=== PATIENT | female | born 1995 | race Caucasian/White ===

== ENCOUNTER → 2023-07-02 | Outpatient (CLI) | payer OTHER, SELFPAY ==
[2023-07-02 16:43] LABS: Absolute Lymphocyte Count 3.12 X10^3/uL (0.83-4.51); Absolute Neutrophil Count 3.4 X10^3/uL (2.0-7.7); Basophil# 0.04 X10^3/uL; Basophil% 0.6 % (0-1); Eosinophil# 0.13 X10^3/uL; Eosinophils% 1.8 % (0-5); Hemoglobin 14.2 g/dL (12.0-15.0); Lymphocyte # 3.12 X10^3/ul (0.83-4.51); Lymphocyte % 43.5 % (19-41); Mean Corp Hgb Conc 34.6 g/dL (32-36); Mean Corpuscular Hgb 29.9 pg (27.0-32.0); Mean Corpuscular Volume 86.3 fL (81-99); Mean Platelet Vol. 11.6 fl (6.2-12.0); NRBC Flagged by Analyzer 0 % (0-5); Neutrophil # 3.36 X10^3/uL (2.7-7.7); Neutrophil % 46.8 % (47-70); Platelet Count 223 K/mm3 (150-450); RBC Distribution Width CV 11.2 % (11.6-14.6); RBC Distribution Width SD 35.3 fl (35.1-43.9); Red Blood Count 4.75 M/mm3 (4.2-5.4); White Blood Count 7.2 K/mm3 (4.4-11.0)
[2023-07-02 16:57] LABS: Progesterone Level 10.64 ng/mL (See Comment)
[2023-07-02 17:07] LABS: ALB/GLOB Ratio 1.3 RATIO (0.9-2.4); AST(SGOT) 20 U/L (15-37); Alanine Aminotransfer ALT/SGPT 39 U/L (13-56); Albumin, Serum 4.1 g/dL (3.2-5.0); Alkaline Phosphatase 53 U/L (45-117); Anion Gap 5 (5-15); BUN 15 mg/dL (7-18); BUN/Creat Ratio 18.2 RATIO (10-20); Calcium,Total 9.3 mg/dL (8.5-10.1); Chloride 107 mmol/L (98-107); Creatinine, Serum 0.82 mg/dL (0.55-1.02); EST Glomerular Filtration Rate 89 mL/min (>60); Est Glom Filt Rate - Afr Amer 108 mL/min (>60); Estradiol 131.9 pg/mL; Ferritin 38 ng/mL (8-252); Globulin 3.1 g/dL (2.2-4.2); Glucose 82 mg/dL (74-106); Iron 90 ug/dL (50-170); Potassium 3.6 mmol/L (3.5-5.1); Protein, Total 7.2 g/dL (6.4-8.2); Sodium Level 140 mmol/L (136-145)
== END | disposition home or self-care (01) ==
PROVIDERS: PCP Physician Assistant; Referring Provider Nurse Practitioner Family; Visit Provider Nurse Practitioner Family
DX: R53.82 Chronic fatigue, unspecified (principal); R39.82 Chronic bladder pain; R10.2 Pelvic and perineal pain; F41.9 Anxiety disorder, unspecified; F32.A Depression, unspecified; G47.00 Insomnia, unspecified; K58.1 Irritable bowel syndrome with constipation; N94.10 Unspecified dyspareunia
CPT/HCPCS: 80053; 82627; 82670; 82728; 83540; 84144; 84403; 85025; 82626

== ENCOUNTER → 2024-03-13 | Outpatient (CLI) | payer OTHER, SELFPAY ==
[2024-03-17 08:29] LABS: HPV Reflexed? NOT INDICATED
== END | disposition home or self-care (01) ==
LOC: LABSPEC 12:03
PROVIDERS: PCP Physician Assistant; Referring Provider Nurse Practitioner Women's Health; Visit Provider Nurse Practitioner Women's Health
DX: Z12.4 Encounter for screening for malignant neoplasm of cervix (principal)
CPT/HCPCS: 88175; G0145

== ENCOUNTER 2024-11-05 15:15 | Emergency (ER) | payer OTHER, SELFPAY ==
[2024-11-05 15:17] VITALS: BP 108/81; PULSE 98; RESP 18; TEMP 36.3; O2SAT 98
--- NOTE | 2024-11-05 15:26 | EDS_ITS ---
HPI History of Present Illness Chief Complaint: Abd Pain PFSH PFSH Home Medications ?Medication ?Instructions ?Recorded ?Last Taken ?Type fluticasone furoate 100 1 inh inhalation DAILY PRN 0 02/18/23 Unknown History mcg-vilanterol 25 mcg/dose inhalation powder (Breo Ellipta) mirtazapine 15 mg tablet 15 mg PO DAILY 02/18/23 Unkn own History montelukast 10 mg tablet 10 mg PO DAILY 02/18/23 Unkn own History (Singulair) pantoprazole 40 mg tablet,delayed 40 mg PO DAILY 02/18 Unknown History release Allergy/AdvReac Type Severity Reaction Status Date / Time Sulfa (Sulfonamide Allergy Intermediate Hives Verified 11/05/24 15:20 Antibiotics) Family History Mother Cancer pancreatic/cervical Diabetes Hypertension Father Hypertension Surgical History S/P laparoscopic procedure History of appendectomy Social History Smoking Status: Never smoker alcohol intake: current alcohol intake frequency: holidays/special occasions only substance use type: does not use EXAM Physical Exam Const Vital Signs: 11/05/24 15:17 11/05/24 17:28 Temperature 97.4 F L Temperature Source Oral Pulse Rate 98 91 Respiratory Rate 18 16 Blood Pressure 108/81 H 107/71 Blood Pressure Mean 90 83 Pulse Ox 98 100 Oxygen Delivery Method Room Air Room Air [facility] MDM MDM Narrative Medical decision making narrative: HISTORY OF PRESENT ILLNESS: Chief complaint: Abdominal pain 29-year-old female history of endometriosis presents with abdominal pain and increased urinary frequency. Notes pain radiates to back. Notes is similar to prior flares of endometriosis. Denies history of kidney stones. Denies vaginal bleeding or discharge. Denies constipation or diarrhea. Notes history of multiple abdominal surgeries REVIEW OF SYSTEMS: Pertinent positives: abdominal pain Pertinent negatives: Vomiting PHYSICAL EXAM: Nursing triage notes reviewed, Vital signs reviewed Constitutional: please see mdm HENT: MMM Eyes: Pupils equal round and reactive to light, Extraocular muscles intact Neck: No stridor, no JVD, full neck ROM Lungs: Clear to auscultation, No wheezing or rales. No increased work of breathing, no conversational dyspnea, no accessory muscle use, no nasal flaring. No respiratory distress noted Heart: Regular rate and rhythm, No murmurs, No rubs and No gallops, 2+ distal pulses (radial, femoral, posterior tibial) in all extremities Abdomen: Soft, there is no tenderness, rigidity, rebound or guarding, no obvious peritoneal signs, no palpable pulsatile abdominal masses, no auscultated abdominal bruit : No CVAT Extremities: No edema Neuro: No new focal neurological deficits, cranial nerves II through XII intact, 5/5 strength in all present extremities. Intact sensation to light touch in all present extremities, 2+ reflexes bilateral patella tendons. Skin: No rash or lesions noted MEDICAL DECISION MAKING: Chief Complaint: please see HPI External records reviewed: Reviewed prior imaging studies Factors affecting care: Endometriosis, anxiety, depression, asthma, gallbladder sludge Social determinants of health: none History obtained from others: family Consults: none MDM Narrative: Patient was hemodynamically stable, afebrile nontoxic-appearing. Abdominal Exam overall benign I considered the following differential diagnosis: AAA, small bowel obstruction, abdominal perforation, appendicitis, pancreatitis, hepatobiliary pathology (acute cholecystitis), mesenteric ischemia, pathology (ie nephrolithiasis, pyelonephritis). I obtained labs images to further assess any sign of a life-threatening etiology. I initially resuscitated the patient while he normal saline, 4 mg IV Zofran, oral Tylenol and 15 mg of IV Toradol. ALL IMAGES (IF OBTAINED) HAVE BEEN PERSONALLY REVIEWED AND INTERPRETED BY MYSELF. CBC with no leukocytosis to suggest systemic inflammation, no anemia thrombocytopenia CMP without evidence of acute kidney injury, significant electrolyte a bnormality, anion gap to suggest end organ hypo-perfusion, no evidence of metabolic acidosis with a normal bicarbonate, no evidence of hepatobiliary obstructive pathology. Lipase is wnl indicating no pancreatic inflammation. Urinalysis shows no evidence of urinary inflammation suggestive of UTI Urine test is CT scan of the c abdomen pelvis noncontrast shows no evidence of nephrolithiasis I suspect the patient's presentation is secondary to a flare of her endometriosis. NSAIDs encouraged. Close BACTERIOLOGIST INDUSTRIAL follow-up recommended. Strict return precautions were discussed. The patient and/or family, caregivers express understanding. The patient and/or family, caregivers agrees with the plan. Shared decision making: I will have a discussion with the patient and or visitors regarding risk/benefits of further testing or admission. They will be made aware of of the risk/benefits inherent in this decision they will be given the opportunity to voice understanding. Total critical care time today provided was at least 0 minutes. This excludes separately billable procedures. Critical care time (if documented) is secondary to the patient having high probability of clinically significant/life threatening deterioration in the patient's condition which required my urgent intervention. Impression: 1. Acute abdominal pain 2. Urinary frequency 3. History of endometriosis Dispo: Discharge home This note was generated with [employer] dictation software. It may contain incorrect words, spelling, and punctuation that were not noted in review of the chart prior to signing. Lab Data Labs: Laboratory Results - last 24 hr 11/05/24 11/05/24 15:38 16:24 WBC 3.3 L RBC 4.47 Hgb 13.8 Hct 38.3 MCV 85.7 MCH 30.9 MCHC 36.0 RDW Std Deviation 36.7 RDW Coeff of Zander 11.9 Plt Count 160 MPV 10.4 Immature Gran % (Auto) 0.600 Neut % (Auto) 55.2 Lymph % (Auto) 32.5 [place] % (Auto) 9.9 Eos % (Auto) 1.8 Baso % (Auto) 0.0 Absolute Neuts (auto) 1.8 L Absolute Lymphs (auto) 1.08 Nucleated RBC % 0 Sodium 138 Potassium 3.6 Chloride 104 Carbon Dioxide 22.1 Anion Gap 11 BUN 11 Creatinine 0.68 L Estim Creat Clear Calc 97.03 Est GFR (MDRD) Non-Af 122 BUN/Creatinine Ratio 16.4 Glucose 80 Calcium 9.0 Total Bilirubin 0.27 AST 20 ALT 15 Alkaline Phosphatase 59 Total Protein 6.7 Albumin 4.3 Globulin 2.4 Albumin/Globulin Ratio 1.8 Lipase 31 Urine Color Yellow Urine Clarity Clear Urine pH 7.0 Ur Specific [place] 1.010 Urine Protein Negative Urine Glucose (UA) Normal Urine Ketones Negative Urine Occult Blood Negative Urine Nitrite Negative Urine Bilirubin Negative Urine Urobilinogen Normal Ur Leukocyte Esterase Negative Urine RBC 0 SEEN Urine WBC 0 SEEN Ur Squamous Epith Cells 0 SEEN Urine Bacteria 0 SEEN Urine Mucus 0 SEEN Urine Test Negative Radiography Diagnostic Testing: Clinical Impression(s) from Imaging Studies Abdomen/Pelvis CT 11/05/24 16:09 IMPRESSION: NO UROLITHIASIS OR HYDRONEPHROSIS. NO ACUTE FINDINGS. Reading [facility] Triage Chief Complaint: Abd Pain ED Provider: Daniel Schneider Dx/Rx/DC Orders Prescriptions: No Action mirtazapine 15 mg tablet 15 mg PO DAILY pantoprazole 40 mg tablet,delayed release (DR/EC) 40 mg PO DAILY montelukast [Singulair] 10 mg tablet 10 mg PO DAILY fluticasone furoate-vilanterol [Breo Ellipta] 100-25 mcg/dose blister with device 1 inh inhalation DAILY PRN Primary Care Provider: Ayaka Doss Referrals: Sukh Pollock PA [Non-Staff] - Print Language: Syrian
--- NOTE | 2024-11-05 16:09 | CT_ITS ---
PROCEDURE: ABDOMEN/PELVIS WITHOUT CONT 11/05/2024 REASON FOR EXAM: LOWER ABDOMINAL PAIN, FLANK PAIN RULE OUT KIDNEY TECHNIQUE: Abdomen and pelvis CT without intravenous contrast. Noncontrast technique limits evaluation of the abdominal and pelvic viscera. Coronal and Sagittal reconstruction series were provided. One or more dose reduction techniques were used (e.g., Automated exposure control, adjustment of the mA and/or kV according to patient size, use of iterative reconstruction technique). PATIENT PREPARATION: Per protocol ORAL CONTRAST TYPE: None. AMOUNT: mL COMPARISON: None FINDINGS: Lung bases: Unremarkable Liver: Normal size. No obvious mass. Gallbladder: Unremarkable Spleen: Normal size. Pancreas: Normal size. No surrounding inflammation. Adrenals: Unremarkable Kidneys: No urolithiasis. No hydronephrosis. Bladder: Unremarkable Reproductive Organs: Normal uterine size and contour. Ovaries are unremarkable. Bowel: Unremarkable Appendix: Status post appendectomy. Lymph nodes: Unremarkable. Vasculature: The abdominal aorta and IVC contours are normal. Noncontrast technique limits evaluation. Peritoneum / Retroperitoneum: No free fluid or free air. Bones: Unremarkable CT/Abdomen/Pelvis without Cont IMPRESSION: NO UROLITHIASIS OR HYDRONEPHROSIS. NO ACUTE FINDINGS. Reading Location: [facility]
[2024-11-05 16:18] LABS: Absolute Lymphocyte Count 1.08 X10^3/uL (0.83-4.51); Absolute Neutrophil Count 1.8 X10^3/uL (2.0-7.7); Eosinophil# 0.06 X10^3/uL; Eosinophils% 1.8 % (0-5); Hematocrit 38.3 % (37-47); Hemoglobin 13.8 g/dL (12.0-15.0); Lymphocyte # 1.08 X10^3/ul (0.83-4.51); Lymphocyte % 32.5 % (19-41); Mean Corpuscular Hgb 30.9 pg (27.0-32.0); Mean Corpuscular Volume 85.7 fL (81-99); Mean Platelet Vol. 10.4 fl (6.2-12.0); Monocyte# 0.33 X10^3/uL; Monocyte% 9.9 % (0-10); NRBC Flagged by Analyzer 0 % (0-5); Neutrophil # 1.83 X10^3/uL (2.7-7.7); Neutrophil % 55.2 % (47-70); Platelet Count 160 K/mm3 (150-450); RBC Distribution Width CV 11.9 % (11.6-14.6); RBC Distribution Width SD 36.7 fl (35.1-43.9); Red Blood Count 4.47 M/mm3 (4.2-5.4); White Blood Count 3.3 K/mm3 (4.4-11.0)
[2024-11-05] MEDS: 0.9% Normal Saline (1000mL) 1,000 ML 999 ML IV (16:19)
[2024-11-05] MEDS: Acetaminophen 325 MG Tablet 650 MG PO (16:19)
[2024-11-05] MEDS: Ondansetron 4 MG/2 ML Vial IV (16:19)
[2024-11-05 16:32] VITALS: BMI 23.8
[2024-11-05 16:33] LABS: Bacteria 0 SEEN /hpf (None Seen); Mucous, Urine 0 SEEN /hpf (<or=2+); Red Blood Cells-Urine 0 SEEN /hpf (0-5); Squamous Epithelial Cells - UA 0 SEEN /hpf (5-10); White Blood Cells 0 SEEN /hpf (0-5)
[2024-11-05 16:34] LABS: ALB/GLOB Ratio 1.8 RATIO (0.9-2.4); AST(SGOT) 20 U/L (<=31); Alanine Aminotransfer ALT/SGPT 15 U/L (<=34); Albumin, Serum 4.3 g/dL (3.5-5.0); Alkaline Phosphatase 59 U/L (35-104); Anion Gap 11 (5-15); BUN 11 mg/dL (4-19); BUN/Creat Ratio 16.4 RATIO (10-20); Carbon Dioxide 22.1 mmol/L (21.0-32.0); Chloride 104 mmol/L (98-108); Creatinine, Serum 0.68 mg/dL (0.70-1.20); EST Glomerular Filtration Rate 122 (>60); Estimated Creatinine Clearance 97.03 ml/min (50-250); Globulin 2.4 g/dL (2.2-4.2); Glucose 80 mg/dL (70-99); Lipase 31 U/L (13-75); Potassium 3.6 mmol/L (3.3-5.1); Protein, Total 6.7 g/dL (5.9-8.4); Sodium Level 138 mmol/L (133-145); Total Bilirubin 0.27 mg/dL (0.00-1.30)
[2024-11-05 16:35] LABS: Color, Urine Yellow (Yellow); Glucose, Dipstick Normal (Normal); Internal QC Validated? YES +Cl - CLEAR BKGD; Ketone-Dipstick Negative (Negative); Leukocyte Esterase-Dipstick Negative /ul (Negative); Nitrite-Dipstick Negative (Negative); Occult Blood-Urine Negative /ul (Negative); Pregnancy, Urine Negative Negative; Protein-Dipstick Negative (Negative); Urine Bilirubin Dipstick Negative (Negative); Urine Clarity Clear (Clear); Urine Urobilinogen Normal (Normal)
[2024-11-05 17:28] VITALS: BP 107/71; PULSE 91; RESP 16; O2SAT 100
== END 2024-11-05 18:25 | disposition home or self-care (01) ==
PROVIDERS: Emergency Provider Emergency Medicine; Visit Provider Emergency Medicine
DX: R10.9 Unspecified abdominal pain (principal); J45.909 Unspecified asthma, uncomplicated; R35.0 Frequency of micturition
CPT/HCPCS: 74176; 80053; 81001; 81025; 83690; 85025; 96361; 96374; 96375; 99283; A4216; J2405

== ENCOUNTER → 2025-01-26 | Outpatient (CLI) | payer OTHER, SELFPAY ==
[2025-01-26 15:10] LABS: Absolute Lymphocyte Count 1.83 X10^3/uL (0.83-4.51); Absolute Neutrophil Count 5.2 X10^3/uL (2.0-7.7); Basophil# 0.03 X10^3/uL; Basophil% 0.4 % (0-1); Eosinophil# 0.25 X10^3/uL; Eosinophils% 3.2 % (0-5); Hematocrit 37.4 % (37-47); Hemoglobin 13.2 g/dL (12.0-15.0); Lymphocyte # 1.83 X10^3/ul (0.83-4.51); Lymphocyte % 23.4 % (19-41); Mean Corp Hgb Conc 35.3 g/dL (32-36); Mean Corpuscular Hgb 31.1 pg (27.0-32.0); Mean Corpuscular Volume 88.2 fL (81-99); Mean Platelet Vol. 10.6 fl (6.2-12.0); Monocyte# 0.54 X10^3/uL; Monocyte% 6.9 % (0-10); NRBC Flagged by Analyzer 0 % (0-5); Neutrophil # 5.15 X10^3/uL (2.7-7.7); Neutrophil % 65.7 % (47-70); Platelet Count 213 K/mm3 (150-450); RBC Distribution Width CV 11.8 % (11.6-14.6); Red Blood Count 4.24 M/mm3 (4.2-5.4); White Blood Count 7.8 K/mm3 (4.4-11.0)
[2025-01-26 16:06] LABS: HIV Nonreactive (Nonreactive); Hepatitis B Surface Antigen Nonreactive (Nonreactive); Hepatitis C Antibody Nonreactive (Nonreactive); Rubella IgG REAC (Nonreactive); Syphilis Antibodies Nonreactive (Nonreactive)
[2025-01-30 04:07] LABS: Chlamydia By Nucleic Acid AMP Negative (Negative); Gonococcus By Nucleic Acid AMP Negative (Negative)
== END | disposition home or self-care (01) ==
PROVIDERS: Referring Provider Registered Nurse; Visit Provider Registered Nurse
DX: O09.90 Supervision of high risk pregnancy, unspecified, unspecified trimester (principal); Z3A.00 Weeks of gestation of pregnancy not specified
CPT/HCPCS: 36415; 85025; 86703; 86762; 86780; 86803; 86850; 86900; 86901; 87086; 87340; 87491; 87591

== ENCOUNTER → 2025-03-19 | Outpatient (CLI) | payer OTHER, SELFPAY | END | disposition home or self-care (01) | LOC: LABSPEC 16:23 | PROVIDERS: Referring Provider Advanced Practice Midwife; Visit Provider Advanced Practice Midwife | DX: O26.899 Other specified pregnancy related conditions, unspecified trimester (principal); R30.0 Dysuria; Z3A.00 Weeks of gestation of pregnancy not specified | CPT/HCPCS: 87086; 87088 ==

== ENCOUNTER → 2025-05-17 | Outpatient (CLI) | payer OTHER, SELFPAY ==
--- OUTSIDE RECORDS SUMMARY | 2025-05-17 17:02 | XMS RPT_ITS | CCD ---
Author Organization [facility] ion Partnership [facility] Care Team Providers Care Wax Engraver Name Role Phone Freya Dobson Unavailable Unavailable Freya Dobson Unavailable Unavailable Amrit Pollockn M Unavailable Unavailable Unavailable Unavailable Unavailable Phill Sukh Unavailable Freya Dial Unavailable Unavailable Sharda Chávez Unavailable Unavailable Newbill PA-C Sukh M Primary Care Provider Newbill PA-C Sukh M Unavailable Newbill PA-C, Sukh M Unavailable [phone] Richelle Paola Unavailable Unavailable Unavailable Unavailable Newbill PA-C Sukh M Unavailable [phone] Newbill Sukh Primary Care Unavailable Ms. Freya Dial Attending Unava ilable Newbill, Sukh Primary Care Unavailable Newbill Sukh Attending Unavailable Newbill, Sukh Primary Care Unavailable [place]angeorge, Paola Attending Unavailable Newbill, Sukh Primary Care Unavailable Newbill, Sukh Attending Unavailable Mariah Lr Attending Unavailable MD SHARDA CHÁVEZ Referring Unava ilable Newbill, Mr. Luz Chi Primary Care Unavail able MD SHARDA CHÁVEZ Attending Unava ilable MD SHARDA CHÁVEZ Referring Unava ilable Newbill, Mr. Sukh Mireles Primary Care Unavail able MD SHARDA CHÁVEZ Attending Unava ilable CHÁVEZ, MD SHARDA ROLLE Referring Unava ilable Newbill, Mr. Sukh Mireles Primary Care Unavail able Newbill, Mr. Sukh Mireles Attending Unavail able Newbill, Mr. Sukh Mireles Referring Unavail able Newbill, Mr. Sukh Mireles Primary Care Unavail able Newbill, Mr. Sukh Mireles Attending Unavail able Newbill, Mr. Sukh Mireles Referring Unavail able Newbill, Mr. Sukh Mireles Primary Care Unavail able Newbill, Mr. Sukh Mireles Attending Unavail able Newbill, Mr. Sukh Mireles Referring Unavail able Newbill, Mr. Sukh Mireles Primary Care Unavail able Newbill, Mr. Sukh Mireles Attending Unavail able Newbill, Mr. Sukh Mireles Referring Unavail able Newbill, Mr. Sukh Mireles Primary Care Unavail able Jayden Taylor Attending Unavailable Newbill, Mr. Sukh Mireles Primary Care Unavail able Newbill Sukh MILLER Unavailable Selam 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, Ayaka B Primary Care Provider Selam 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, Ayaka B Unavailable Selam 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, Ayaka B Primary Care Provider Selam 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, Ayaka B Unavailable Dr. Daniel Schneider DO Emergency Provider [phone] Selam CONSTRUCTION CARPENTER-C, Ayaka Primary Care Provider Selam ARCHITECTURAL DESIGN PROFESSOR, [facility] Primary Care Provider Selam 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, Ayaka B Unavailable RYAN GUERRA Attending Unavailable [facility], AYAKA B Primary Care Unavailable GENERIC PROVIDER, NO ASSIGNED PCP Primary Care Unavailable JAYDEN TAYLOR Admitting Unavailable JAYDEN TAYLOR Attending Unavailable [facility], AYAKA B Primary Care Unavailable JAYDEN TAYLOR Admitting Unavailable JAYDEN TAYLOR Attending Unavailable [facility], AYAKA B Primary Care Unavailable [facility], AYAKA B Primary Care Unavailable [facility], AYAKA B Primary Care Unavailable EVENS PALACIOS Attending Unavailable EVENS PALACIOS Referring Unavailable SELAM, AYAKA B Referring Unavailable SELAM, AYAKA B Primary Care Unavailable SELAM, AYAKA B Primary Care Unavailable EVENS PALACIOS Attending Unavailable SELAM, AYAKA B Referring Unavailable SELAM, AYAKA B Primary Care Unavailable Selam 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, Ayaka B Primary Care Provider SELAM, AYAKA B Attending Unavailable SELAM, AYAKA B Primary Care Unavailable SELAM, AYAKA B Attending Unavailable SELAM, AYAKA B Primary Care Unavailable SELAM, AYAKA B Attending Unavailable SELAM, AYAKA B Primary Care Unavailable SELAM, AYAKA B Attending Unavailable SELAM, AYAKA B Primary Care Unavailable SELAM, AYAKA B Attending Unavailable SELAM, AYAKA B Primary Care Unavailable CHAD VALDEZ Attending Unavailable SELAM, AYAKA B Primary Care Unavailable STARR TORREZ Referring Unavailable JOHANN HAINES Attending Unavailabl e SELAM, AYAKA Primary Care Unavailable SELAM, AYAKA Primary Care Unavailable JOHANN HAINES Referring Unavailabl e JOHANN HAINES Attending Unavailabl e STARR TORREZ Attending Unavailable SELAM, AYAKA Primary Care Unavailable Dr. Daniel Schneider DO Attending Provider Selam CONSTRUCTION CARPENTER-C, Ayaka Referring Provider [phone] Dr. Kirsten Aragon DO Attending Provider Apple Browne CNM Attending Provider [phone] Apple Browne CNM Referring Provider [phone] Dr. Marcie Santana MD Attending Provider [phone] Selam CONSTRUCTION CARPENTER-C, Ayaka Primary Care Provider Kelsey Harrell CNM Attending Provider [phone] Kelsey Harrell CNM Referring Provider [phone] JAYDEN TAYLOR Attending Unavailable SELAM, AYAKA B Primary Care Unavailable SELAM, AYAKA B Primary Care Unavailable Selam CONSTRUCTION CARPENTER-C, Ayaka Primary Care Physician Dr. Kirsten Aragon DO Attending Physician Apple Browne CNM Attending Physician [phone] Nicole WEBER, Dr. Jack Attending Physician Kelsey Harrell CNM Attending Physician [phone] Marquita CONSTRUCTION CARPENTER-CNelli Attending Physician [phone] MARCIE SANTANA Referring Unavailabl FIORDALIZA Hernandez Attending Unavailable SELAM, AYAKA B Primary Care Unavailable SELAM, AYAKA B Primary Care Unavailable KIRSTEN CLEMENTS Attending Unavailable MARCIE SANTANA Referring Unavailabl Marcie Horan Attending Unavailable Selam, Ayaka Primary Care Unavailable Selam, Ayaka Referring Unavailable Selam, Ayaka Referring Unavailable Selam, Ayaka Primary Care Unavailable Kirsten Aragon Attending UnavailKelsey Faria Attending Unavailable Selam, Ayaka Referring Unavailable Selam, Ayaka Primary Care Unavailable Nelli Juárez NP Attending Unavailable Selam, Ayaka Referring Unavailable Selam, Ayaka Primary Care Unavailable Selam, Ayaka Primary Care Unavailable Selam, Ayaka Referring Unavailable Kirsten Aragon Attending Unavailabl e Selam, Ayaka Primary Care Unavailable Selam, Ayaka Referring Unavailable Apple Browne Attending Unavailable Kelsey Harrell Attending Unavailable Kelsey Harrell Referring Unavailable Selam, Ayaka Primary Care Unavailable Selam, Ayaka Primary Care Unavailable Apple Browne Attending Unavailable Browne, Apple Referring Unavailable Selam, Ayaka Primary Care Unavailable Daniel Schneider Attending Unavailable Selam, Ayaka Primary Care Unavailable Apple Browne Attending Unavailable Browne, Apple Referring Unavailable Allergies Allergy Classification Reported Allergen(s) Allergy Type Date of Onset Reaction(s) Facility (20 sources) Sulfonamides (Antibiotic); Translations: [Sulfa Drugs] Allergy to drug (finding) [facility] Work Phone: (11 sources) Serotonin Reuptake Inhibitors (Ssris); Translations: [Serotonin Reuptake Inhibitors] Allergy to drug (finding) [facility] Work Phone: (20 sources) Serotonin; Translations: [SEROTONIN] Drug Allergy 3 Unknown, [facility] (20 sources) Sulfonamides (Antibiotic); Translations: [SULFA (SULFONAMIDE ANTIBIOTICS)] Drug Allergy 3 [facility] Work Phone: (8 sources) Sulfonamides (Antibiotic) Allergy to substance 5 [facility] (1 source) Serotonin Drug Allergy 3 [facility] (1 source) Sulfonamides (Antibiotic) Drug allergy (disorder) 5 [facility] Rep[facility] Medications Current Medications Medication Drug Class(es) Dates Sig (Normalized) Sig (Original) acetaminophen 325 mg oral tablet (4 sources) Start: 04-28-2024 End: 05-08-2024 acetaminophen (Tylenol) 325 mg tablet Indications: Post-op pain Take 3 tablets (975 mg) by mouth every 6 hours if needed for mild pain (1 - 3) for up to 20 doses. 20 tablet 04/28/2024 05/08/2024 Active Start: 04-28-2024 End: 04-28-2024 take 975 mg by mouth once as needed for pain 975 mg, oral, Once, On Wed04/28/24 at 0630, For 1 dose, Preprocedure, If ordered PRN for pain, nurse is permitted to administer this medication for higher pain scores based on patient preference? Yes Start: 10-14-2023 End: 10-14-2023 acetaminophen (Tylenol) tabl et 975 mg [id number] 200 actuat albuterol 0.09 mg/actuat metered dose inhaler (20 sources) beta2-Adrenergic Agonist Start: 09-11-2024 End: 09-11-2025 take 2 puff(s) by inhalation every six hours for wheezing albuterol 90 mcg/actuation inhaler Indications: Acute upper respiratory infection Inhale 2 puffs every 6 hours if needed for wheezing. 18 g 09/11/2024 09/11/2025 Active Start: 04-28-2024 2.5 mg, nebuli zation, Once as needed, wheezing, Starting on Wed04/28/24 at 0940, For 1 dose, Recovery (only) albuterol 0.63 m g/3 mL nebulizer solution Inhale 3 mL. Active take 3 mL by inhalat ion three times daily albuterol 0.63 mg/3 mL (0.021%) inhalation solution ; 3 milliliter(s) inhaled 3 times a day Quantity: 0 Refills: 0 Ordered: 31-May-2019 Masha Mcbride Generic Substitution Allowed calcium chloride 0.0014 meq/ml / potassium chloride 0.004 meq/ml / sodium chloride 0.103 meq/ml / sodium lactate 0.028 meq/ml injectable solution (3 sources) Start: 04-28-2024 take 100 mL intravenously every hour 100 mL/hr, intravenous, Continuous, Starting on Wed04/28/24 at 1000, Recovery (only) Start: 10-14-2023 lactated Ringe r's infusion clomiPHENE citrate 50 mg oral tablet (1 source) Estrogen Agonist/Antagonist Start: 11-20-2024 take 1 tablet by mouth once daily clomiPHENE 50 MG tablet Take 1 tablet by mouth daily. Took this last month been off since . 11/20/2024 Active cyclobenzaprine hydrochloride 5 mg oral tablet (3 sources) Muscle Relaxant Start: 12-22-2023 End: 02-20-2024 take 1 tablet by mouth three times daily as needed for pain cyclobenzaprine (Flexeril) 5 mg tablet Indications: Endometriosis determined by laparoscopy Take 1 tablet (5 mg) by mouth 3 times a day as needed for muscle spasms (Pelvic pain). 30 tablet 1 12/22/2023 02/20/2024 Active Start: 03-04-2023 End: 04-28-2023 take 1 tablet by mouth three times daily as needed for muscle spasms cyclobenzaprine (Flexeril) 10 mg tablet Indications: Injury of sacrum, initial encounter Take 1 tablet (10 mg) by mouth 3 times a day as needed for muscle spasms. 30 tablet 1 03/04/2023 04/28/2023 Discontinued (Therapy completed) dextromethorphan hydrobromide 15 mg / guaiFENesin 400 mg / pseudoephedrine hydrochloride 60 mg oral tablet (2 sources) alpha-Adrenergic Agonist, Uncompetitive Z-rucueo-D-aspartate Receptor Antagonist, Sigma-1 Agonist Start: 11-03-2022 End: 01-26-2023 take 1 tablet by mouth four times daily as needed [id number] 60-15-400 mg tablet Indications: Pharyngitis, unspecified etiology Take 1 tablet by mouth 4 times a day as needed (cold/allergy symptoms). 30 tablet 1 11/03/2022 01/26/2023 Discontinued (Therapy completed) diphenhydrAMINE (1 source) Histamine-1 Receptor Antagonist Start: 04-28-2024 25 mg, intravenous, Once as needed, itching, allergic reaction, Starting on Wed04/28/24 at 0940, For 1 dose, Recovery (only) docosahexaenoic acid 200 mg oral capsule (7 sources) Start: 01-12-2025 Docosahexaenoic Acid (Prenat al Dha) 200 mg capsule Active mg PO January 12, 2025 12:00am Complies with drug therapy docusate sodium 100 mg oral capsule (18 sources) Start: 01-12-2025 take 1 capsule by mouth once daily Docusate Sodium 100 mg capsule Active 100 mg PO daily January 12, 2025 12:00am Complies with drug therapy End: 09-20-2024 take 1 capsule by mouth once daily docusate sodium 250 mg capsule Take 1 capsule (250 mg) by mouth once daily. 09/20/2024 Discontinued (Therapy completed) End: 12-22-2023 take 1 capsule by mouth twice daily docusate sodium (Colace) 100 mg capsule Take 1 capsule (100 mg) by mouth 2 times a day. 12/22/2023 Discontinued (Therapy completed) DULoxetine 30 mg delayed release oral capsule (5 sources) Serotonin and Norepinephrine Reuptake Inhibitor Start: 05-03-2023 End: 10-14-2023 DULoxetine (Cymbalta) [address] capsule Indications: Anxiety and depression Take one cap daily for one week then increase to 2 caps daily 6 capsule 11 05/03/2023 10/14/2023 Discontinued (Stop Taking at Discharge) Start: 09-23-2022 End: 09-28-2022 take 1 capsule by mouth once daily DULoxetine HCl - 20 MG Oral Capsule Delayed Release Particles TAKE 1 CAPSULE Daily Quantity: 30 Refills: 11 Ordered: 23-Sep-2022 Sukh Pollock PA-C Start : 23-Sep-2022 End : 28-Sep-2022 Complete Comment on above: Source=Surescripts, Medication=DULOXETINE HCL 20MG CAP, OriginatingSource[id number], OriginatingProvider=SUKH POLLOCK, Duration=30, Refills=11, Date Last Modified/Filled=23-Sep-2022 [id number] 0.3 ml EPINEPHrine 1 mg/ml auto-injector (3 sources) alpha-Adrenergic Agonist, beta-Adrenergic Agonist, Catecholamine Start: 11-24-19 EPINEPHrine 0.3 MG/0.3ML Solution Auto-injector injection Inject contents of 1 autoinjector (0.3 mg) into thigh for allergic reactions (hives, lip/tongue/throat swelling, breathing trouble, lightheadedness, passing out or other symptoms of an allergic reaction) and seek medical attention immediately. If symptoms do not resolve after 5 min and still awaiting medical care, inject contents of a second autoinjector. 2 Each 11/23/2024 Active Start: 11-23-2024 End: 11-23-2024 inject 0.3 mg by intramuscular injection once 0.3 mg, Intramuscular, ONCE, 1 dose, On Amanda 11/23/24 at 0300, For intraMUSCULAR use, anterolateral thigh is recommended site of administration 30 actuat fluticasone furoate 0.2 mg/actuat / vilanterol 0.025 mg/actuat dry powder inhaler (20 sources) Corticosteroid, beta2-Adrenergic Agonist Start: 03-23-2023 End: 04-27-2024 take 1 puff(s) by mouth once daily Breo Ellipta 200-25 mcg/dose inhaler Indications: Mild intermittent asthma without complication ([facility]) Inhale 1 puff by mouth once daily 60 each 03/23/2023 04/27/2024 Discontinued (Therapy completed) Start: 02-18-2023 End: 01-12-2025 Fluticasone Furoate-Vilanter ol (Breo Ellipta) 100-25 mcg/dose blister with device Discontinued 1 NMA INHALATION DAILY as needed February 18, 2023 12:00am January 12, 2025 8:21am Start: 01-28-2022 take 1 puff(s) by in halation once daily fluticasone furoate-vilanteroL (Breo Ellipta) 200-25 mcg/dose inhaler Inhale 1 puff once daily. 0 01/28/2022 Active Comment on above: Diagnosis: Unavailab le 1 ml hydrALAZINE hydrochloride 20 mg/ml injection (1 source) Arteriolar Vasodilator Start: 04-28-2024 10 mg, intravenous, Administer over 2 Minutes, Every 30 min PRN, systolic blood pressure greater than 180 mmHg and heart rate less than 60 BPM, Starting on Wed04/28/24 at 0940, For 2 doses, Recovery (only) 1 ml HYDROmorphone hydrochloride 1 mg/ml cartridge (3 sources) Opioid Agonist Start: 04-28-2024 1 mg, intravenous, Every 5 min PRN, pain severe (7-10), first line, Starting on Wed04/28/24 at 0940, Recovery (only), Max total of 4 mg regardless of dose. Start: 10-14-2023 HYDROmorphone (Dilaudid) injection 0.5 mg ibuprofen 600 mg oral tablet (2 sources) Nonsteroidal Anti-inflammatory Drug Start: 04-28-2024 End: 05-08-2024 take 1 tablet by mouth every six hours for pain ibuprofen 600 mg tablet Indications: Post-op pain Take 1 tablet (600 mg) by mouth every 6 hours if needed for moderate pain (4 - 6) for up to 20 doses. 20 tablet 04/28/2024 05/08/2024 Active labetalol hydrochloride 5 mg/ml injectable solution (1 source) beta-Adrenergic Charles Start: 04-28-2024 10 mg, intravenous, Administer over 1 Minutes, Once as needed, systolic blood pressure greater than 180 mmHg, dystolic blood pressure greater than 100 mmHg and heart rate greater than 60 BPM, Starting on Wed04/28/24 at 0940, For 1 dose, Recovery (only) 200 actuat levalbuterol 0.045 mg/actuat metered dose inhaler (20 sources) beta2-Adrenergic Agonist Start: 11-03-2023 End: 04-28-2024 take 1 puff(s) by mouth every four hours as needed levalbuterol (Xopenex) 45 mcg/actuation inhaler Indications: Moderate persistent asthma, unspecified whether complicated ([facility]) INHALE 1 PUFF BY MOUTH EVERY 4 HOURS NEEDED 15 g 11/03/2023 04/28/2024 Discontinued (Stop Taking at Discharge) Start: 10-30-2019 End: 10-11-2023 take 1 puff(s) by inhalation every four hours levalbuterol (Xopenex) 45 mcg/actuation inhaler Inhale 1 puff every 4 hours if needed. 0 10/30/2019 10/11/2023 Discontinued (Med List Cleanup) Start: 10-30-2019 take 1 puff(s) by mo uth every four hours as needed Levalbuterol Tartrate 45 MCG/ACT Inhalation Aerosol TAKE 1 PUFF BY MOUTH EVERY 4 HOURS NEEDED Quantity: 1 Refills: 3 Ordered: 21-Sep-2022 Sukh Pollock PA-C Start : 30-Oct-2019 Active Start: 09-01-2019 End: 08-27-2022 take 1 [IU] by inhalation every four to six hours as needed Levalbuterol HCl - 1.25 MG/3ML Inhalation Nebulization Solution USE 1 UNIT DOSE IN NEBULIZER EVERY 4 TO 6 HOURS NEEDED. Quantity: 60 Refills: 2 Ordered: 01-Sep-2019 Freya Dobson DO Start : 01-Sep-2019 End : 27-Aug-2022 Complete Start: 05-16-2019 take 1 puff(s) by in halation every four hours as needed Xopenex HFA 45 MCG/ACT Inhalation Aerosol INHALE 1 PUFF EVERY 4 HOURS NEEDED. Quantity: 1 Refills: 6 Freya Dobson DO Start : 16-May-2019 Active 15 GM Inhaler loratadine 10 mg oral tablet (20 sources) Start: 01-12-2025 take 1 tablet by mouth once daily Loratadine (Claritin) 10 mg tablet Active 10 mg PO daily January 12, 2025 12:00am Complies with drug therapy End: 04-28-2023 loratadine (Claritin) 10 mg tablet Claritin 10 MG Oral Tablet Refills: 0 Active 0 04/28/2023 Discontinued (Therapy completed) Claritin 10 MG O ral Tablet Quantity: 0 Refills: 0 Ordered: 11-Feb-2022 DO Active Meperidine (1 source) Opioid Agonist Start: 04-28-2024 12.5 mg, intra venous, Every 10 min PRN, shivering, Starting on Wed04/28/24 at 0940, Recovery (only) 5 ml midazolam 1 mg/ml injection (2 sources) Benzodiazepine Start: 04-28-2024 1 mg, intraven ous, Once as needed, anxiety, Starting on Wed04/28/24 at 0940, For 1 dose, Recovery (only) Start: 10-14-2023 End: 10-14-2023 midazolam (Versed) injection 2 mg miscellaneous medical supply misc (2 sources) Start: 10-02-2024 miscellaneous medical supply misc Indications: Pelvic pain Insert 1 suppository into the vagina 2 times a day as needed (pelvic pain). 30 each 1 10/02/2024 Active 1 ml morphine sulfate 2 mg/ml prefilled syringe (1 source) Opioid Agonist Start: 04-28-2024 2 mg, intravenous, Every 5 min PRN, pain moderate (4-6), first line, Starting on Wed04/28/24 at 0940, Recovery (only), Max total of 20 mg regardless of dose. nitrofurantoin, macrocrystals 25 mg / nitrofurantoin, monohydrate 75 mg oral capsule (6 sources) Nitrofuran Antibacterial Start: 10-30-2022 End: 11-06-2022 take 1 capsule by mouth in the morning nitrofurantoin, macrocrystal-monoh ydrate, (Macrobid) 100 mg capsule Indications: Urinary tract infection without hematuria, site unspecified Take 1 capsule (100 mg) by mouth in the morning and 1 capsule (100 mg) before bedtime. Do all this for 7 days. 14 capsule 0 10/30/2022 11/06/2022 Active Start: 05-22-2022 End: 08-27-2022 take 1 capsule by mouth once daily Nitrofurantoin Monohyd Macro 100 MG Oral Capsule TAKE 1 CAPSULE EVERY 12 HOURS DAILY. Quantity: 10 Refills: 0 Ordered: 22-May-2022 Freya Dobson DO Start : 22-May-2022 End : 27-Aug-2022 Complete Start: 12-26-2021 End: 12-31-2021 take 1 capsule by mouth once daily Nitrofurantoin Monohyd Macro 100 MG Oral Capsule TAKE 1 CAPSULE EVERY 12 HOURS DAILY. Quantity: 10 Refills: 0 Ordered: 26-Dec-2021 Freya Dobson DO Start : 26-Dec-2021 End : 31-Dec-2021 Complete ondansetron 4 mg disintegrating oral tablet (20 sources) Serotonin-3 Receptor Antagonist Start: 11-05-2024 take 1 tablet by mouth every eight hours as needed for nausea Ondansetron 4 mg tablet,disintegrating Active 4 mg PO EVERY 8 HOURS NEEDED as needed for Nausea 10 November 05, 2024 12:00am Complies with drug therapy Start: 09-11-2024 End: 09-20-2024 take 1 tablet by mouth every eight hours for nausea ondansetron ODT (Zofran-ODT) 4 mg disintegrating tablet Indications: Acute upper respiratory infection Dissolve 1 tablet (4 mg) in the mouth every 8 hours if needed for nausea or vomiting for up to 7 days. 20 tablet 09/11/2024 09/20/2024 Discontinued (Therapy completed) Start: 04-28-2024 End: 05-05-2024 take 1 tablet by mouth every six hours for nausea ondansetron (Zofran) 4 mg tablet Indications: Post-op pain Take 1 tablet (4 mg) by mouth every 6 hours if needed for nausea for up to 20 doses. 20 tablet 04/28/2024 05/05/2024 Active Start: 04-28-2024 4 mg, intraven ous, Once as needed, nausea/vomiting, first line, Starting on Wed04/28/24 at 0940, For 1 dose, Recovery (only), When administering via IV Push, administer over 3-5 minutes. Start: 10-14-2023 End: 12-22-2023 take 1 tablet by mouth every eight hours for nausea ondansetron ODT (Zofran-ODT) 8 mg disintegrating tablet Indications: Chronic pelvic pain in female , PONV (postoperative nausea and vomiting) Take 1 tablet (8 mg) by mouth every 8 hours if needed for nausea or vomiting. 20 tablet 10/14/2023 12/22/2023 Discontinued (Med List Cleanup) Start: 10-14-2023 End: 10-14-2023 ondansetron (Zofran) injecti on 4 mg Start: 09-28-2022 End: 12-22-2023 take 1 tablet by mouth every six hours ondansetron (Zofran) 4 mg tablet Indications: Anxiety and depression , Panic attack , Nausea in adult Take 1 tablet (4 mg) by mouth every 6 hours. 30 tablet 2 04/28/2023 12/22/2023 Discontinued (Med List Cleanup) Start: 09-01-2021 End: 01-28-2022 take 1 tablet by mouth every six hours Ondansetron HCl - 4 MG Oral Tablet TAKE 1 TABLET Every 6 hours PRN nausea Quantity: 12 Refills: 1 Ordered: 30-Dec-2021 Sukh Pollock PA-C Start : 01-Sep-2021 End : 28-Jan-2022 Complete 24 hr oxybutynin chloride 5 mg extended release oral tablet (1 source) Cholinergic Muscarinic Antagonist Start: 01-05-2025 oxyBUTYnin XL (Ditropan-XL) 5 mg 24 hr tablet Indications: Urinary symptom or sign Take 1 tablet in am 30 tablet 11 01/05/2025 Active oxyCODONE hydrochloride 5 mg oral tablet (3 sources) Opioid Agonist Start: 04-28-2024 End: 05-05-2024 take 1 tablet by mouth every six hours for pain oxyCODONE (Roxicodone) 5 mg immediate release tablet Indications: Post-op pain Take 1 tablet (5 mg) by mouth every 6 hours if needed for severe pain (7 - 10) for up to 12 doses. 12 tablet 04/28/2024 05/05/2024 Active Start: 10-14-2023 take 1 tablet by shawn th every four hours as needed oxyCODONE (Roxicodone) immediate release tablet 5 mg oxygen (O2) therapy (1 source) Start: 10-14-2023 oxygen (O2) therapy pantoprazole 40 mg delayed release oral tablet (20 sources) Proton Pump Inhibitor Start: 11-09-2019 End: 04-27-2025 take 1 tablet by mouth once daily Pantoprazole 40 mg tablet,delayed release (DR/EC) Active 40 mg PO DAILY February 18, 2023 12:00am Complies with drug therapy phenazopyridine hydrochloride 200 mg oral tablet (5 sources) Start: 11-19-2022 End: 11-20-2022 take 1 tablet by mouth three times daily after mealtime Pyridium 200 mg oral tablet ; 1 tab(s) orally 3 times a day (after meals) Quantity: 6 Refills: 0 Ordered: 19-Nov-2022 Paola Pickard Start: 19-Nov-2022 End: 20-Nov-2022 Generic Substitution Allowed Comments: May discolor urine or feces.Medication should be taken with plenty of water.Take with food or milk. Start: 10-13-2022 End: 01-26-2023 phenazopyridine (Pyridium) 1 00 mg tablet Indications: Dysuria Take 1 tablet (100 mg) by mouth in the morning and 1 tablet (100 mg) at noon and 1 tablet (100 mg) in the evening. Take with meals. 9 tablet 0 10/13/2022 01/26/2023 Discontinued (Therapy completed) Start: 12-26-2021 End: 12-31-2021 take 1 tablet by mouth once daily as needed Pyridium 200 MG Oral Tablet TAKE 1 TABLET DAILY NEEDED. Quantity: 15 Refills: 0 Ordered: 26-Dec-2021 Freya Dobson DO Start : 26-Dec-2021 End : 31-Dec-2021 Complete Comment on above: May discolor urine o r feces.Medication should be taken with plenty of water.Take with food or milk. promethazine (Phenergan) 6.25 mg in sodium chloride 0.9% 50 mL IV (1 source) Start: 10-14-19 promethazine (Phenergan) 6.25 mg in sodium chloride 0.9% 50 mL IV promethazine 6.25 mg in sodium chloride 0.9% 50 mL IV (1 source) Start: 04-28-20 24 6.25 mg, intravenous, Administer over 15 Minutes, Once as needed, Nausea/vomiting, second line, Starting on Wed04/28/24 at 0940, For 1 dose, Recovery (only) QUEtiapine 25 mg oral tablet (3 sources) Atypical Antipsychotic Start: 11-04-19 End: 05-02-20 23 take 1 tablet by mouth once daily at bedtime QUEtiapine (SEROquel) 25 mg tablet Indications: Anxiety and depression , Panic attacks Take 1 tablet (25 mg) by mouth once daily at bedtime. 30 tablet 5 11/03/2022 01/26/2023 Discontinued (Therapy completed) Comment on above: Source=Surescripts, Medication=QUEtiapine Fumarate 25MG TAB, OriginatingSource[id number], OriginatingProvider=SUKH POLLOCK, Duration=30, Refills=5, Date Last Modified/Filled=03-Nov-2022 sertraline 50 mg oral tablet (16 sources) Serotonin Reuptake Inhibitor Start: 01-13-20 take 1 tablet by mouth once daily Sertraline (Zoloft) 50 mg tablet Active 50 mg PO daily January 12, 2025 12:00am Complies with drug therapy Start: 06-16-2024 End: 12-13-2024 take 1 tablet by mouth once daily sertraline (Zoloft) 50 mg tablet Indications: Anxiety and depression Take 1 tablet by mouth once daily 30 tablet 12/11/2024 Active Start: 05-21-2022 take 1 tablet by shawn th once daily Sertraline HCl - 50 MG Oral Tablet take 1 tablet by mouth once daily Quantity: 30 Refills: 11 Ordered: 21-May-2022 Sukh Pollock PA-C Start : 21-May-2022 Active traMADol hydrochloride 50 mg oral tablet (1 source) Opioid Agonist Start: 01-26-2023 End: 02-23-2023 take 1 tablet by mouth every six hours for pain traMADol (Ultram) 50 mg tablet Indications: Acute bilateral low back pain, unspecified whether sciatica present Take 1 tablet (50 mg) by mouth every 6 hours if needed for severe pain (7 - 10) for up to 28 days. 15 tablet 0 01/26/2023 02/23/2023 Active ubiquinol 100 mg oral capsule (7 sources) Start: 01-12-2025 take 1 capsule by mouth twice daily Coq10 (Ubiquinol) (Qh-Absorb) 100 mg capsule Active 100 mg PO TWICE A DAY January 12, 2025 12:00am Complies with drug therapy 24 hr venlafaxine 37.5 mg extended release oral capsule (11 sources) Serotonin and Norepinephrine Reuptake Inhibitor Start: 04-28-2023 venlafaxine XR (Effexor-XR) 37.5 mg 24 hr capsule Indications: Anxiety and depression , Panic attack Take one cap daily for one week then increase to 2 caps daily 60 capsule 5 04/28/2023 Active Start: 09-28-2022 End: 11-03-2022 take 1 capsule by mouth once daily at mealtime Venlafaxine HCl ER 75 MG Oral Capsule Extended Release 24 Hour TAKE 1 CAPSULE ONCE DAILY WITH FOOD. Quantity: 30 Refills: 11 Ordered: 28-Sep-2022 Sukh Pollock PA-C Start : 28-Sep-2022 Active Start: 09-21-2022 End: 09-23-2022 take 1 tablet by mouth once daily, then take 1 tablet by mouth twice daily Venlafaxine HCl - 37.5 MG Oral Tablet take one tab po daily x1 weektake one tab po bid thereafter Quantity: 60 Refills: 1 Ordered: 21-Sep-2022 Sukh Pollock PA-C Start : 21-Sep-2022 End : 23-Sep-2022 Complete Completed/Discontinued Medications Medication Drug Class(es) Dates Sig (Normalized) Sig (Original) acetaminophen 300 mg / codeine phosphate 30 mg oral tablet (3 sources) Opioid Agonist Start: 10-14-2023 End: 12-22-2023 take 1 tablet by mouth every six hours for pain acetaminophen-cod eine (Tylenol w/ Codeine #3) 300-30 mg tablet Indications: Chronic pelvic pain in female Take 1 tablet by mouth every 6 hours if needed for moderate pain (4 - 6) or severe pain (7 - 10) for up to 10 doses. 10 tablet 10/14/2023 12/22/2023 Discontinued (Med List Cleanup) ALPRAZolam 1 mg oral tablet (6 sources) Benzodiazepine Start: 04-22-2022 End: 09-21-2022 ALPRAZolam 1 MG Oral Tablet 1/2 or 1 tab bid prn panick attacks Quantity: 10 Refills: 0 Ordered: 22-Apr-2022 Sukh Pollock PA-C Start : 22-Apr-2022 End : 21-Sep-2022 Complete F41.0 amoxicillin 875 mg / clavulanate 125 mg oral tablet (1 source) Penicillin-class Antibacterial Start: 09-01-2019 take 1 tablet by mouth once daily Amoxicillin-Pot Clavulanate 875-125 MG Oral Tablet TAKE 1 TABLET EVERY 12 HOURS DAILY. Quantity: 20 Refills: 0 Freya Dobson DO Start : 01-Sep-2019 Active aprepitant 40 mg oral capsule (1 source) Substance P/Neurokinin-1 Receptor Antagonist Start: 10-14-2023 End: 10-14-2023 aprepitant (Emend) capsule 40 mg azithromycin 250 mg oral tablet (7 sources) Macrolide Antimicrobial Start: 09-09-2024 End: 09-20-2024 azithromycin (Zithromax Z-Mahesh) 250 mg tablet Indications: Acute non-recurrent maxillary sinusitis Take 2 tablets (500 mg) on Day 1, followed by 1 tablet (250 mg) once daily on Days 2 through 5. 6 tablet 09/09/2024 09/20/2024 Discontinued (Therapy completed) Start: 11-03-2022 End: 01-26-2023 azithromycin (Zithromax) 250 mg tablet Indications: Pharyngitis, unspecified etiology Take 1 tablet (250 mg) by mouth once daily. 2 tabs po day 1 1 tab po every day days 2-5 6 tablet 0 11/03/2022 01/26/2023 Discontinued (Therapy completed) Start: 06-24-2021 End: 09-01-2021 Azithromycin 250 MG Oral Tab let TAKE DIRECTED PER PACKAGE INSTRUCTIONS. Quantity: 1 Refills: 0 Ordered: 24-Jun-2021 Sukh Pollock PA-C Start : 24-Jun-2021 End : 01-Sep-2021 Complete brompheniramine maleate 0.4 mg/ml / dextromethorphan hydrobromide 2 mg/ml / pseudoephedrine hydrochloride 6 mg/ml oral solution (5 sources) alpha-Adrenergic Agonist, Uncompetitive E-mtubca-D-aspartate Receptor Antagonist, Sigma-1 Agonist Start: 09-09-2024 End: 09-20-2024 take 5 mL by mouth four times daily as needed for cough urjfkcbxessysoz-cxygtffjb-ZM (Bromfed DM) 2-30-10 mg/5 mL syrup Indications: Acute non-recurrent maxillary sinusitis Take 5 mL by mouth 4 times a day as needed for allergies, congestion or cough. 240 mL 09/09/2024 09/20/2024 Discontinued (Therapy completed) Start: 06-24-2021 End: 09-01-2021 take 5-10 mL by mouth every four to six hours as needed for cough Ehpqadnkk-Uyjgebwg-ZK 30-2-10 MG/5ML Ora l Syrup take 5-10 mL po q4-6 hrs prn cough, cold, or allergy symptoms Quantity: 200 Refills: 0 Ordered: 24-Jun-2021 Phill GOMEZ-Sukh Garcia Start : 24-Jun-2021 End : 01-Sep-2021 Complete 60 actuat budesonide 0.16 mg/actuat / formoterol fumarate 0.0045 mg/actuat metered dose inhaler (20 sources) Corticosteroid, beta2-Adrenergic Agonist Start: 05-10-2019 End: 02-11-2022 take 2 puff(s) by mouth twice daily Symbicort 160-4.5 MCG/ACT Inhalation Aerosol INHALE 2 PUFFS TWICE DAILY. RINSE MOUTH AFTER USE. Quantity: 1 Refills: 3 Ordered: 30-Dec-2021 Sukh Pollock PA-C Start : 10-May-2019 End : 11-Feb-2022 Complete Start: 05-10-2019 take 2 puff(s) by mo uth twice daily Symbicort 160-4.5 MCG/ACT Inhalation Aerosol INHALE 2 PUFFS TWICE DAILY. RINSE MOUTH AFTER USE. Quantity: 1 Refills: 3 Freya Dobson DO Start : 10-May-2019 Active 10.2 GM Inhaler take 2 puff(s) by in halation every twelve hours budesonide-formoterol 160-4.5 mcg/puff Aerosol inhaler Inhale 2 puffs every 12 hours. Active take 2 puff(s) by mo uth twice daily budesonide-formoteroL (Symbicort) 160-4.5 mcg/actuation inhaler Inhale 2 puffs 2 times a day. Rinse mouth with water after use to reduce aftertaste and incidence of candidiasis. Do not swallow. Active take 2 puff(s) by mo uth twice daily budesonide-formoteroL (Symbicort) 160-4.5 mcg/actuation inhaler Inhale 2 puffs 2 times a day. Rinse mouth with water after use to reduce aftertaste and incidence of candidiasis. Do not swallow. 0 Active Symbicort ; 1 in haler(s) inhaled once a day, As Needed Quantity: 0 Refills: 0 Ordered: 23-Sep-2019 Radha Clark Generic Substitution Allowed budesonide/formoterol fumara te (SYMBICORT INHL) (5 sources) End: 10-11-2023 budesonide/formoterol fumara te (SYMBICORT INHL) Inhale. 0 10/11/2023 Discontinued (Med List Cleanup) budesonide/formo terol fumarate (SYMBICORT INHL) Inhale. 0 Active 12 hr buPROPion hydrochloride 150 mg extended release oral tablet (3 sources) Aminoketone Start: 07-02-2022 End: 09-21-2022 take 1 tablet by mouth twice daily buPROPion HCl ER (SR) 150 MG Oral Tablet Extended Release 12 Hour Take 1 tablet twice daily Quantity: 60 Refills: 11 Ordered: 02-Jul-2022 Sukh Pollock PA-C Start : 02-Jul-2022 End : 21-Sep-2022 Complete Start: 05-25-2022 take 1 tablet by shawn once daily buPROPion HCl ER (XL) 150 MG Oral Tablet Extended Release 24 Hour Take 1 tablet daily Quantity: 30 Refills: 5 Ordered: 25-May-2022 Sukh Pollock PA-C Start : 25-May-2022 Active celecoxib 100 mg oral capsule (2 sources) Nonsteroidal Anti-inflammatory Drug Start: 04-28-2024 End: 04-28-2024 take 1 capsule by mouth once 400 mg, oral, Once, On Wed04/28/24 at 0630, For 1 dose, Preprocedure, Capsules may be opened and sprinkled on a spoonful of cold or room temperature applesauce. Start: 10-14-2023 End: 10-14-2023 celecoxib (CeleBREX) capsule 400 mg 1 ml dexamethasone phosphate 10 mg/ml injection (1 source) Corticosteroid Start: 10-14-2023 End: 10-14-2023 dexAMETHasone (PF) (Decadron) injection 10 mg Start: 10-14-2023 End: 10-14-2023 dexAMETHasone (PF) (Decadron ) injection 10 mg docusate sodium 50 mg / sennosides, group home 8.6 mg oral tablet (7 sources) Start: 04-28-2024 End: 09-20-2024 take 1 tablet by mouth twice daily sennosides-docusate sodium (Suzanne-Colace) 8.6-50 mg tablet Indications: Post-op pain Take 1 tablet by mouth 2 times a day. 30 tablet 1 04/28/2024 09/20/2024 Discontinued (Therapy completed) drospirenone / Ethinyl Estradiol (2 sources) Progestin, Estrogen Start: 10-29-2023 End: 12-22-2023 take 1 tablet by mouth once daily drospirenone-ethinyl estradioL (Loulou, 28,) 3-0.03 mg tablet Indications: Endometriosis determined by laparoscopy Take 1 tablet by mouth once daily. 28 tablet 5 10/29/2023 12/22/2023 Discontinued (Med List Cleanup) Start: 10-29-2023 End: 10-28-2024 take 1 tablet by mouth once daily drospirenone-ethinyl estradioL (Loulou, 28,) 3-0.03 mg tablet Indications: Endometriosis determined by laparoscopy Take 1 tablet by mouth once daily. 28 tablet 5 10/29/2023 10/28/2024 Active estradiol 0.1 mg/ml vaginal cream (5 sources) Estrogen Start: 12-22-2023 End: 12-21-2024 estradiol (Estrace) 0.01 % ( 0.1 mg/gram) vaginal cream Indications: Dyspareunia in female Apply to vagina nightly for 1 week then every Wednesday/Wednesday/Wednesday. 42.5 g 5 12/22/2023 06/14/2024 Discontinued (Therapy completed) Nortrel 1/35 (28) 1-35 MG-MCG Oral Tablet (1 source) Estrogen Start: 05-16-2019 Nortrel 1/35 ( 28) 1-35 MG-MCG Oral Tablet TAKE DIRECTED. Quantity: 1 Refills: 11 Freya Dobson DO Start : 16-May-2019 Active 28 Tablet Pack 2 ml famotidine 10 mg/ml injection (2 sources) Histamine-2 Receptor Antagonist Start: 10-14-2023 End: 10-14-2023 famotidine PF (Pepcid) injection 20 mg Start: 07-02-2022 End: 08-27-2022 take 1 tablet by mouth once daily Famotidine 20 MG Oral Tablet TAKE 1 TABLET EVERY 12 HOURS DAILY. Quantity: 14 Refills: 1 Ordered: 02-Jul-2022 Sukh Pollock PA-C Start : 02-Jul-2022 End : 27-Aug-2022 Complete fluconazole 150 mg oral tablet (5 sources) Azole Antifungal Start: 07-02-2022 End: 08-27-2022 take 1 tablet by mouth once Fluconazole 150 MG Oral Tablet TAKE 1 TABLET 1 TIME ONLY. Quantity: 1 Refills: 1 Ordered: 02-Jul-2022 Sukh Pollock PA-C Start : 02-Jul-2022 End : 27-Aug-2022 Complete Start: 06-01-2022 take 1 tablet by mouth once Fl uconazole 150 MG Oral Tablet TAKE 1 TABLET 1 TIME ONLY. Quantity: 1 Refills: 1 Ordered: 01-Jun-2022 Sukh Pollock PA-C Start : 01-Jun-2022 Active Start: 06-25-2021 End: 09-01-2021 take 1 tablet by mouth once Fluconazole 150 MG Oral Ta blet TAKE 1 TABLET 1 TIME ONLY. Quantity: 1 Refills: 1 Ordered: 25-Jun-2021 Sukh Pollock PA-C Start : 25-Jun-2021 End : 01-Sep-2021 Complete Start: 09-01-2019 take 1 tablet by shawn th every twenty-four hours Fluconazole 150 MG Oral Tablet TAKE I TAB. IF SYMPTOMS STILL OCCUR AFTER 24 HOURS, TAKE 2ND TAB. Quantity: 2 Refills: 0 Freya Dobson DO Start : 01-Sep-2019 Active FLUoxetine 10 mg oral tablet (2 sources) Serotonin Reuptake Inhibitor Start: 04-22-2022 End: 05-21-2022 take 1 tablet by mouth once daily FLUoxetine HCl - 10 MG Oral Tablet TAKE 1 TABLET DAILY. Quantity: 30 Refills: 11 Ordered: 22-Apr-2022 Sukh Pollock PA-C Start : 22-Apr-2022 End : 21-May-2022 Complete gabapentin 300 mg oral capsule (2 sources) Anti-epileptic Agent Start: 04-28-2024 End: 04-28-2024 take 1 capsule by mouth once 600 mg, oral, Once, On Wed04/28/24 at 0630, For 1 dose, Preprocedure, Capsules may be opened and sprinkled on food (eg, applesauce, orange juice, pudding). Capsules may be opened and sprinkled on food (eg, applesauce, orange juice, pudding Start: 10-14-2023 End: 10-14-2023 gabapentin (Neurontin) capsu le 300 mg 10 ml lidocaine hydrochloride 10 mg/ml injection (2 sources) Antiarrhythmic, Amide Local Anesthetic Start: 11-23-2024 End: 11-23-2024 take 0.3 mL intravenously once as needed 0.3 mL, Infiltration, ONCE NEEDED, 1 dose, Starting on Wed11/23/24 at 0215, Until Wed11/23/24 at 0902, Other, peripheral IV insertion Start: 04-28-2024 LORazepam 1 mg oral tablet (4 sources) Benzodiazepine Start: 05-01-2023 End: 12-22-2023 LORazepam (Ativan) 1 mg tablet Indications: Panic attacks Take 1 tablet (1 mg) by mouth every 8 hours if needed for anxiety for up to 7 days. 1/2 or 1 tab q8 prn panic attack 21 tablet 05/01/2023 12/22/2023 Discontinued (Med List Cleanup) Start: 04-01-2023 End: 04-28-2023 LORazepam (Ativan) 1 mg tabl et Indications: Panic attacks 1/2 or 1 tab q8 prn panic attack 28 tablet 0 04/01/2023 04/28/2023 Discontinued (Therapy completed) methylPREDNISolone (9 sources) Corticosteroid Start: 05-02-2024 End: 09-20-2024 methylPREDNISolone (Medrol Dospak) 4 mg tablets Indications: Allergic contact der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 Take as directed on package. 21 tablet 05/02/2024 09/20/2024 Discontinued (Therapy completed) Start: 05-02-2024 methylPREDNISo lone (Medrol Dospak) 4 mg tablets Indications: Allergic contact der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 Take as directed on package. 21 tablet 05/02/2024 Active Start: 05-02-2024 End: 05-02-2024 methylPREDNISolone sod succi heidy (SOLU-Medrol) injection 125 mg Start: 05-02-2024 End: 05-02-2024 inject 125 mg by intramuscular injection once 125 mg, intramuscular, Once, On Wed05/02/24 at 1205, For 1 dose Start: 05-02-2024 End: 05-02-2024 methylPREDNISolone sod succi heidy (SOLU-Medrol) injection 125 mg mirtazapine 30 mg oral tablet (12 sources) Start: 03-04-2023 End: 08-31-2023 take 1 tablet by mouth once daily at bedtime mirtazapine (Remeron) 30 mg tablet Indications: Anxiety and depression , Injury of sacrum, initial encounter Take 1 tablet (30 mg) by mouth once daily at bedtime. 30 tablet 5 03/04/2023 04/28/2023 Discontinued (Therapy completed) Start: 01-26-2023 End: 01-12-2025 take 1 tablet by mouth once daily Mirtazapine 15 mg tablet Discontinued 15 mg PO DAILY February 18, 2023 12:00am January 12, 2025 8:21am montelukast 10 mg oral tablet (20 sources) Leukotriene Receptor Antagonist Start: 05-10-2019 End: 01-12-2025 take 1 tablet by mouth once daily Montelukast (Singulair) 10 mg tablet Discontinued 10 mg PO DAILY February 18, 2023 12:00am January 12, 2025 8:21am Singulair 4 mg o ral granule ; 1 each orally once a day Quantity: 0 Refills: 0 Ordered: 31-May-2019 Masha Mcbride Generic Substitution Allowed Nortrel 1/35 (28) 1-35 MG-MCG Oral Tablet (2 sources) Start: 05-16-2019 End: 06-24-2021 Nortrel 1/35 (28) 1-35 MG-MCG Oral Tablet TAKE DIRECTED. Quantity: 1 Refills: 11 Ordered: 16-May-2019 Freya Dobson DO Start : 16-May-2019 End : 24-Jun-2021 Complete plecanatide 3 mg oral tablet (2 sources) Start: 06-25-2020 End: 06-24-2021 take 1 tablet by mouth once daily in the morning Trulance 3 MG Oral Tablet one tablet once daily in the morning Quantity: 90 Refills: 3 Ordered: 25-Jun-2020 Arabella Guzman Start : 25-Jun-2020 End : 24-Jun-2021 Complete predniSONE 10 mg oral tablet (9 sources) Start: 09-11-2024 End: 09-20-2024 take 6 tablets by mouth once daily, then take 5 tablets by mouth once daily, then take 4 tablets by mouth once daily, then take 3 tablets by mouth once daily, then take 2 tablets by mouth once daily, then take 1 tablet by mouth once daily predniSONE (Deltasone) 10 mg tablet Indications: Acute upper respiratory infection Take 6 tablets (60 mg) by mouth once daily for 1 day, THEN 5 tablets (50 mg) once daily for 1 day, THEN 4 tablets (40 mg) once daily for 1 day, THEN 3 tablets (30 mg) once daily for 1 day, THEN 2 tablets (20 mg) once daily for 1 day, THEN 1 tablet (10 mg) once daily for 1 day. 21 tablet 09/11/2024 09/20/2024 Discontinued (Therapy completed) Start: 03-04-2023 End: 04-28-2023 take 3 tablets by mouth once daily, then take 2 tablets by mouth once daily, then take 1 tablet by mouth once daily predniSONE (Deltasone) 10 mg tablet Indications: Injury of sacrum, initial encounter 3 tabs po every day x 2 days, then 2 tabs po every day x 2 days, then 1 tab po every day every day x2 days 12 tablet 0 03/04/2023 04/28/2023 Discontinued (Therapy completed) Start: 11-03-2022 End: 11-08-2022 take 1 tablet by mouth in the morning predniSONE (Deltasone) 10 mg tablet Indications: Pharyngitis, unspecified etiology Take 1 tablet (10 mg) by mouth in the morning and 1 tablet (10 mg) before bedtime. Do all this for 5 days. 10 tablet 0 11/03/2022 11/08/2022 Active Start: 07-02-2022 End: 08-27-2022 take 1 tablet by mouth twice daily predniSONE 20 MG Oral Tablet TAKE 1 TABLET TWICE DAILY. Quantity: 14 Refills: 1 Ordered: 02-Jul-2022 Sukh Pollock PA-C Start : 02-Jul-2022 End : 27-Aug-2022 Complete Start: 06-24-2021 End: 09-01-2021 predniSONE 10 MG Oral Tablet TAKE 4 TABLETS DAILY FOR 3 DAYS,3 TABLETS DAILY FOR 3 DAYS, 2 TABLETS DAILY FOR 3 DAYS AND 1 TABLET DAILY FOR 3 DAYS, THEN STOP. Quantity: 30 Refills: 0 Ordered: 24-Jun-2021 Sukh Pollock PA-C Start : 24-Jun-2021 End : 01-Sep-2021 Complete Start: 09-01-2019 take 3 tablets by [facility] once daily, then take 2 tablets by mouth once daily, then take 1 tablet by mouth once daily predniSONE 20 MG Oral Tablet TAKE 3 TABLETS DAILY FOR 3 DAYS, THEN 2 TABLETS DAILY FOR 3 DAYS, THEN 1 TABLET DAILY FOR 3 DAYS. Quantity: 18 Refills: 0 Freya Dobson DO Start : 01-Sep-2019 Active pregabalin 50 mg oral capsule (1 source) Start: 04-01-2023 End: 04-28-2023 take 1 capsule by mouth three times daily pregabalin (Lyrica) 50 mg capsule Indications: Anxiety and depression , Panic attacks Take 1 capsule (50 mg) by mouth 3 times a day. 90 capsule 5 04/01/2023 04/28/2023 Discontinued (Therapy completed) promethazine hydrochloride 25 mg oral tablet (16 sources) Phenothiazine Start: 09-01-2021 End: 01-28-2022 take 1 tablet by mouth every four to six hours as needed for nausea Promethazine HCl - 25 MG Oral Tablet TAKE 1 TABLET EVERY 4 TO 6 HOURS NEEDED FOR NAUSEA. Quantity: 18 Refills: 0 Ordered: 01-Sep-2021 Sukh Pollock PA-C Start : 01-Sep-2021 End : 28-Jan-2022 Complete 72 hr scopolamine 0.0139 mg/hr transdermal system (1 source) Anticholinergic Start: 10-14-2023 End: 10-14-2023 scopolamine (Transderm-Scop) patch 1 patch traZODone hydrochloride 50 mg oral tablet (6 sources) Serotonin Reuptake Inhibitor Start: 04-22-2022 End: 09-21-2022 traZODone HCl - 50 MG Oral Tablet take 1/2 or 1 tablet qhs for insomnia Quantity: 30 Refills: 5 Ordered: 22-Apr-2022 Sukh Pollock PA-C Start : 22-Apr-2022 End : 21-Sep-2022 Complete triamcinolone acetonide 5 mg/ml topical cream (2 sources) Corticosteroid Start: 05-02-2024 End: 06-14-2024 triamcinolone (Kenalog) 0.5 % cream Indications: Allergic contact der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 Apply topically 3 times a day. 30 g 1 05/02/2024 06/14/2024 Discontinued (Therapy completed) Unspecified Medication (2 sources) Start: 01-01-2023 Unspecified Medication VALIUM VAGINAL SUP. 5 MG TID PRN PAIN Quantity: 30 Refills: 0 Ordered: 01-Jan-2023 Jayden Taylor MD Start : 01-Jan-2023 Active Problems Active Problems Problem Classification Problem Date Documented Da te Episodic/Chronic Allergic reactions (20 sources) Idiopathic urticaria; Translations: [Idiopathic urticaria] Onset: 3 11-02-2022 Episodic Anxiety disorders (20 sources) Mixed anxiety and depressive disorder; Translations: [Anxiety state, unspecified] Onset: 3 11-03-2022 Chronic Comment on above: Zoloft Asthma (20 sources) Asthma; Translations: [Exacerbation of asthma] Onset: 3 Resolved: 2 11-02-2022 Chronic Comment on above: Stable, no inhalers Biliary tract disease (8 sources) Biliary sludge; Translations: [Other specified diseases of gallbladder] 02-19-2023 Episodic Endometriosis (20 sources) Endometriosis (clinical); Translations: [Endometriosis, unspecified] Onset: 4 10-29-2023 Chronic Comment on above: Dr Jayden [facility]/surgery 04/2024. Esophageal disorders (20 sources) Gastroesophageal reflux disease; Translations: [Esophageal reflux] Onset: 4 04-27-2024 Chronic Comment on above: Pantopazole Genitourinary symptoms and ill-defined conditions (20 sources) History of urinary tract infection; Translations: [Personal history, urinary (tract) infection] Onset: 3 Resolved: 2 11-19-2022 Episodic Menstrual disorders (14 sources) Amenorrhea; Translations: [Amenorrhea, unspecified] Onset: 5 01-12-2025 Chronic Miscellaneous mental health disorders (20 sources) Psychophysiologic insomnia; Translations: [Persistent disorder of initiating or maintaining sleep] Onset: 3 11-02-2022 Chronic Mood disorders (20 sources) Depressive disorder; Translations: [Depression] 02-18-2023 Chronic Comment on above: Zoloft Mood disorders (1 source) Mood disorders; Translations: [Depression, unspecified] Onset: 5 Osteoarthritis (8 sources) Arthritis; Translations: [Unspecified osteoarthritis, unspecified site] 02-18-2023 Chronic Comment on above: lower back Other aftercare (1 source) 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; Translations: [Other retirement (current) drug therapy] Onset: 3 Episodic Other aftercare (1 source) Postoperative visit; Translations: [Encounter for other specified surgical aftercare] 10-29-2023 Episodic Other complications of (20 sources) High risk ; Translations: [Supervision of high risk , unspecified, unspecified trimester] 01-12-2025 Episodic Comment on above: G1, ERIN 08/31/25, Hu sband: Vinny PRR ERIN 6, : Vinny Other complications of (1 source) Other specified related conditions, unspecified trimester; Translations: [Other specified related conditions, unspecified trimester] Onset: 5 Episodic Other complications of (1 source) Supervision of high risk , unspecified, unspecified trimester; Translations: [Supervision of high risk , unspecified, unspecified trimester] Onset: 5 Episodic Other connective tissue disease (1 source) Pelvic floor dysfunction; Translations: [Other specified disorders of muscle] 01-05-2025 Episodic Other connective tissue disease (10 sources) Female pelvic floor dysfunction; Translations: [Other specified disorders of muscle] 02-22-2025 Episodic Comment on above: PFPT with freya toño , cleared for vaginal exams as long as no bleeding. Other connective tissue disease (1 source) Other specified disorders of muscle; Translations: [Other specified disorders of muscle] Onset: 5 Episodic Other diseases of bladder and urethra (1 source) Overactive bladder; Translations: [Overactive bladder] 01-05-2025 Chronic Other female genital disorders (20 sources) Female deep pain on intercourse; Translations: [Dyspareunia] Onset: 3 11-02-2022 Chronic Other female genital disorders (1 source) Deep dyspareunia; Translations: [Deep dyspareunia] Onset: 3 Chronic Other female genital disorders (3 sources) Pain in female genitalia on intercourse; Translations: [Unspecified dyspareunia] 09-24-2023 Chronic Other gastrointestinal disorders (20 sources) Irritable bowel syndrome characterized by constipation; Translations: [Irritable bowel syndrome] Onset: 3 11-02-2022 Chronic Other gastrointestinal disorders (13 sources) Irritable bowel syndrome; Translations: [Irritable bowel syndrome without diarrhea] 01-12-2025 Chronic Comment on above: Daily stool softener Other infections; including parasitic (20 sources) H/O: infectious disease; Translations: [Personal history of other infectious and parasitic diseases] Episodic Other injuries and conditions due to external causes (1 source) Traumatic injury of sacrum; Translations: [Unspecified injury of lower back, initial encounter] 03-04-2023 Episodic Other injuries and conditions due to external causes (1 source) Allergic reaction; Translations: [Allergy, unspecified, subsequent encounter] 11-24-2024 Episodic Other injuries and conditions due to external causes (1 source) Angioedema; Translations: [Angioneurotic edema, initial encounter] 01-04-2025 Episodic Other injuries and conditions due to external causes (2 sources) Angioneurotic edema, initial encounter; Translations: [Angioneurotic edema, initial encounter] Onset: 5 Episodic Other nervous system disorders (1 source) Postoperative pain ; Translations: [Other acute postprocedural pain] 04-28-2024 Episodic Other and delivery including normal (20 sources) ; Translations: [Encounter for supervision of normal , unspecified, unspecified trimester] Onset: 5 09-20-2024 Episodic Comment on above: Discussed genetic/ca rrier testing - undecided Discussed genetic/ca rrier testing -declines Other screening for suspected conditions (not mental disorders or infectious disease) (20 sources) Computed tomography result abnormal; Translations: [Nonspecific (abnormal) findings on radiological and other examination of gastrointestinal tract] Resolved: 2 03-13-2024 Episodic Other upper respiratory disease (20 sources) Seasonal allergy; Translations: [Allergic rhinitis, cause unspecified] Onset: 3 11-02-2022 Chronic Other upper respiratory disease (2 sources) Pain in throat 10-31-2022 Episodic Comment on above: SORE THROAT Residual codes; unclassified (8 sources) History of laparoscopy; Translations: [Other specified postprocedural states] 10-10-2024 Episodic Comment on above: 09/2023 [facility] endometrio sis Residual codes; unclassified (1 source) Swelling; Translations: [Edema, unspecified] 01-04-2025 Episodic Residual codes; unclassified (2 sources) Edema, unspecified; Translations: [Edema, unspecified] Onset: 5 Episodic Residual codes; unclassified (12 sources) Infertile 01-12-2025 Episodic Comment on above: Clomid x1 Residual codes; unclassified (1 source) 16 weeks gestation of ; Translations: [16 weeks gestation of ] Onset: Episodic Spondylosis; intervertebral disc disorders; other back problems (1 source) Acute low back pain; Translations: [Acute bilateral low back pain, unspecified whether sciatica present] 01-26-2023 Episodic Unclassified (2 sources) Patient encounter procedure 01-28-2022 Comment on above: YEARLY Unclassified (1 source) Viral URI with cough 10-31-2022 Unclassified (1 source) Abdominal pain, acute, left lower quadrant 11-19-2022 Unclassified (3 sources) Low back pain, unspecified; Translations: [Low back pain, unspecified] Onset: 3 Unclassified (1 source) Autogenerated Problem Onset: 5 11-20-2024 Unclassified (4 sources) Dyspareunia in female Unclassified (9 sources) N94.10 - Unspecified dyspareunia Urinary tract infections (1 source) Interstitial cystitis (chronic) without hematuria; Translations: [Chronic interstitial cystitis] 01-05-2025 Chronic Past or Other Problems Problem Classification Problem Date Documented Da te Episodic/Chronic Abdominal pain (20 sources) Pain in female pelvis; Translations: [Unspecified symptom associated with female genital organs] Onset: 3 11-02-2022 Episodic Comment on above: ABD PAIN Chronic obstructive pulmonary disease and bronchiectasis (8 sources) Bronchitis; Translations: [Bronchitis, not specified as acute or chronic] Onset: 5 09-20-2024 Episodic Fever of unknown origin (1 source) Fever, unspecified; Translations: [Fever, unspecified] Onset: 3 Episodic Immunizations and screening for infectious disease (20 sources) Patient encounter status; Translations: [Screening examination for venereal disease] Resolved: 2 Episodic Mycoses (20 sources) Candidiasis of vagina; Translations: [Candidiasis of vulva and vagina] Onset: 3 11-02-2022 Episodic Nausea and vomiting (20 sources) Nausea and vomiting; Translations: [Nausea with vomiting] Onset: 3 11-02-2022 Episodic Other aftercare (2 sources) Encounter for other specified surgical aftercare; Translations: [Encounter for other specified surgical aftercare] Onset: 4 Episodic Other ear and sense organ disorders (1 source) Otalgia, bilateral; Translations: [Otalgia, bilateral] Onset: 3 Episodic Other gastrointestinal disorders (20 sources) Acute constipation; Translations: [Constipation, unspecified] Resolved: 2 Episodic Other gastrointestinal disorders (20 sources) Esophageal dysphagia; Translations: [Other dysphagia] Resolved: 2 Episodic Other gastrointestinal disorders (20 sources) Constipation; Translations: [Other constipation] Resolved: 1 Episodic Other lower respiratory disease (20 sources) H/O: respiratory disease; Translations: [Personal history of other diseases of respiratory system] Resolved: 1 Episodic Other upper respiratory infections (14 sources) Acute sinusitis; Translations: [Acute pharyngitis] Onset: 3 10-31-2022 Episodic Residual codes; unclassified (20 sources) Uses contraception; Translations: [Other specified conditions influencing health status] Resolved: 2 Episodic Residual codes; unclassified (20 sources) History of clinical finding in subject; Translations: [Personal history of other specified diseases] Resolved: 1 Episodic Residual codes; unclassified (20 sources) Influenza-like symptoms; Translations: [Other general symptoms] Resolved: 2 Episodic Residual codes; unclassified (20 sources) H/O: gastrointestinal disease; Translations: [Personal history of other diseases of digestive system] Resolved: 2 Episodic Unclassified (1 source) Uses contraception; Translations: [Uses control] Unclassified (20 sources) Finding of menstrual bleeding; Translations: [Menstruation] Comment on above: age 12; Unclassified (18 sources) Onset: 3 Resolved: 3 01-26-2023 Unclassified (1 source) Low back pain, unspecified; Translations: [Low back pain, unspecified] Onset: 3 Urinary tract infections (20 sources) Urinary tract infectious disease; Translations: [Urinary tract infection, site not specified] Onset: 3 11-02-2022 Episodic NEGATED: Highlighted row has been ruled out!Unclassified (1 source) No known active problems 01-04-2025 Results Test Name Value Interpretation Reference Range Facility Yeast Culture Operator Office Visit Reporton 04-18-2025 Yeast Culture Operator Office Visit Report [facility] [address], [address] [place] [address] OFFICE VISIT Date of Service: 04/18/25 MR#: [id number] Acct: [id number] Name: KM STRANGE Rep #: [id number] : 1995 Provider: CARLA aguiar Age/Sex: 29/F Location: [facility] [place] Status: Signed Intake Vital Signs 02/22/25 09:25 03/19/25 15:12 04/18/25 08:21 Height 5 ft 5 ft 5 ft Weight: 146 lb 9 oz BMI 28.6 BP 110/70 Intake Visit Reasons: 21 WK OB Chief Complaint: 22 Week OB [employer] Required: No Is patient in pain?: No Allergies Sulfa (Sulfonamide Antibiotics) Allergy (Intermediate, Verified 04/18/25 08:24) Hives Medications ???Medication ???Instructions ???Recorded ???Confirmed ???Type pantoprazole 40 mg tablet,delayed 40 mg PO DAILY 02/18/23 04/18/25 History release ondansetron 4 mg disintegrating 4 mg PO Q8H PRN PRN Nausea #10 tab s 11/05/24 04/18/25 Rx tablet coQ10 (ubiquinol) 100 mg capsule 100 mg PO BID 01/12/25 04/18/25 Hi story (QH-absorb) docosahexaenoic acid 200 mg mg PO 01/12/25 04/18/25 History capsule ( DHA) docusate sodium 100 mg capsule 100 mg PO QDAY 01/12/25 04/18/25 H istory loratadine 10 mg tablet (Claritin) 10 mg PO QDAY 01/12/25 04/18/25 History sertraline 50 mg tablet (Zoloft) 50 mg PO QDAY 01/12/25 04/18/25 Hi story Last Menstrual Period: 11/24/24 Zika: Zika virus screening: Negative : No PFSH PFSH Medical History Arthritis Asthma Surgical History S/P laparoscopic procedure History of appendectomy Family History Mother Diabetes Hypertension Thyroid cancer Cervical cancer Father Hypertension Social History adopted: No household members: spouse housing: house current occupational status: employed 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 occupational exposures/hazards: No pets and animals: Yes pets and animals: dog(s) history of recent travel: No sexually active: Yes Smoking Status: Never smoker second hand exposure: No alcohol intake: current alcohol intake frequency: holidays/special occasions only details: Not while substance use type: does not use well-balanced diet: daily or most days caffeine: Yes Type: coffee eating out: rarely or never during the past year weight has: remained stable what type of physical activity do you participate in: walking ken/restorationist: Yazidi seatbelt use: always do you feel safe at home: Yes 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 OB Visit ERIN Calculator Estimated Delivery Date Method Current WG Current Estimate 08/31/25 LMP (Certain) 20w 5d Expected Delivery Route/Plan Labor Preferences- CB/BF classes: [] labor support person: [] labor intervention preferences: [] pain management options preferred: [] cut cord/dad catch: [] : [] PP control planned: [] discussed possible routes of delivery and associated risks: [] special requests: [] Specific Issue/Plans Covid status: [] Flu vaccine: [] Tdap vaccine: [] Rhogam: [] LARC form signed: [] Problem list reviewed and updated with the most current plan of care details and appropriate orders placed. Relevant counseling for the gestational age provided. Continue routine care and follow up unless otherwise noted in visit notes/problem list details Initial Weight: Not Recorded Date -???-???-???-???-???-??? -???-???-???-???-???-??? - EGA Weight BP Urine Prot -???-???-???-???-???-??? -???-???-???-???-???-??? - Glucose FHR FuHt Pres Dilation -???-???-???-???-???-??? -???-???-???-???-???-??? - Effaced St Visit Note 01/26/25 -???-???-???-???-???-??? -???-???-???-???-???-??? - 9w 0d 128 lb 8 oz 106/74 -???-???-???-???-???-??? -???-???-???-???-???-??? - 175 -???-???-???-???-???-??? -???-???-???-???-???-??? - LC- CRL 1.75 cm con with lmp. declines nipt. 02/22/25 -???-???-???-???-???-??? -???-???-???-???-???-??? - 12w 6d 133 lb 6 oz 103/72 Negative -???-???-???-???-???-??? -???-???-???-???-???-??? - Negative 150 -???-???-???-???-???-??? -???-???-???-???-???-??? - SM- no vb cr amping discussed PFPT to help with pelvic floor dysfunction 03/19/25 -???-???-???-???-???-??? -???-???-???-???- (more content not included)... Normal [facility] Urine Cultureon 03-22-2025 URC Below infection leve l. GPC Poss Enterococcus sp [place] Count 1000-10,000 Normal [facility] Comment on above: Performed By: #### M [id number] #### [facility] [address] [place], [address] Laboratory - Chemistry and C hemistry - challengeOrdered By: Kelsey Harrell on 03-19-2025 Bilirubin Ql (U) Negative [facility] Glucose Ql (U) Negative [facility] Ketones Ql (U) Negative [facility] pH (U) 6.5 [pH] [facility] Specific gravity (U) [Rel density] 1.010 [facility] Urobilinogen (U) [Mass/Vol] Negative [facility] Laboratory - Hematology and Cell countsOrdered By: Kelsey Harrell on 03-19-2025 Hemoglobin Ql (U) Negative [facility] Laboratory - Specimen inform ationOrdered By: Kelsey Harrell on 03-19-2025 Clarity (U) Clear [facility] Color (U) Yellow [facility] Laboratory - UrinalysisOrder ed By: Kelsey Harrell on 03-19-2025 Nitrite Ql (U) Negative [facility] Protein Ql (U) Negative [facility] No Panel InformationOrdered By: Kelsey Harrell on 03-19-2025 Urine Leukocytes Negatve [facility] Urine Non-Hemolyzed Blood [facility] Yeast Culture Operator Office Visit Reporton 03-19-2025 Yeast Culture Operator Office Visit Report [facility] [address], [address] [place] [id number] OFFICE VISIT Date of Service: 03/19/25 MR#: [id number] Acct: [id number] Name: KM STRANGE Rep #: [id number] : 1995 Provider: SHI Luther ams Age/Sex: 29/F Location: [facility] [place] Status: Signed Intake Vital Signs 01/26/25 13:35 02/22/25 09:25 03/19/25 15:12 Height 5 ft 5 ft 5 ft Weight: 142 lb 6 oz BMI 27.8 BP 103/70 Intake Visit Reasons: 17wk ob Chief Complaint: 17wk OB [employer] Required: No Is patient in pain?: No Allergies Sulfa (Sulfonamide Antibiotics) Allergy (Intermediate, Verified 03/19/25 15:11) Hives Medications ???Medication ???Instructions ???Recorded ???Confirmed ???Type pantoprazole 40 mg tablet,delayed 40 mg PO DAILY 02/18/23 03/19/25 History release ondansetron 4 mg disintegrating 4 mg PO Q8H PRN PRN Nausea #10 tab s 11/05/24 03/19/25 Rx tablet coQ10 (ubiquinol) 100 mg capsule 100 mg PO BID 01/12/25 03/19/25 Hi story (QH-absorb) docosahexaenoic acid 200 mg mg PO 01/12/25 03/19/25 History capsule ( DHA) docusate sodium 100 mg capsule 100 mg PO QDAY 01/12/25 03/19/25 H istory loratadine 10 mg tablet (Claritin) 10 mg PO QDAY 01/12/25 03/19/25 History sertraline 50 mg tablet (Zoloft) 50 mg PO QDAY 01/12/25 03/19/25 Hi story Last Menstrual Period: 11/24/24 : No PFSH PFSH Medical History Arthritis Asthma Surgical History S/P laparoscopic procedure History of appendectomy Family History Mother Diabetes Hypertension Thyroid cancer Cervical cancer Father Hypertension Social History adopted: No household members: spouse housing: house current occupational status: employed 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 occupational exposures/hazards: No pets and animals: Yes pets and animals: dog(s) history of recent travel: No sexually active: Yes Smoking Status: Never smoker second hand exposure: No alcohol intake: current alcohol intake frequency: holidays/special occasions only details: Not while substance use type: does not use well-balanced diet: daily or most days caffeine: Yes Type: coffee eating out: rarely or never during the past year weight has: remained stable what type of physical activity do you participate in: walking ken/restorationist: Yazidi seatbelt use: always do you feel safe at home: Yes 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 OB Visit ERIN Calculator Estimated Delivery Date Method Current WG Current Estimate 08/31/25 LMP (Certain) 16w 3d Expected Delivery Route/Plan Labor Preferences- CB/BF classes: [] labor support person: [] labor intervention preferences: [] pain management options preferred: [] cut cord/dad catch: [] : [] PP control planned: [] discussed possible routes of delivery and associated risks: [] special requests: [] Specific Issue/Plans Covid status: [] Flu vaccine: [] Tdap vaccine: [] Rhogam: [] LARC form signed: [] Problem list reviewed and updated with the most current plan of care details and appropriate orders placed. Relevant counseling for the gestational age provided. Continue routine care and follow up unless otherwise noted in visit notes/problem list details Initial Weight: Not Recorded Date -???-???-???-???-???-??? -???-???-???-???-???-??? - EGA Weight BP Urine Prot -???-???-???-???-???-??? -???-???-???-???-???-??? - Glucose FHR FuHt Pres Dilation -???-???-???-???-???-??? -???-???-???-???-???-??? - Effaced St Visit Note 01/26/25 -???-???-???-???-???-??? -???-???-???-???-???-??? - 9w 0d 128 lb 8 oz 106/74 -???-???-???-???-???-??? -???-???-???-???-???-??? - 175 -???-???-???-???-???-??? -???-???-???-???-???-??? - LC- CRL 1.75 cm con with lmp. declines nipt. 02/22/25 -???-???-???-???-???-??? -???-???-???-???-???-??? - 12w 6d 133 lb 6 oz 103/72 Negative -???-???-???-???-???-??? -???-???-???-???-???-??? - Negative 150 -???-???-???-???-???-??? -???-???-???-???-???-??? - SM- no vb cr amping discussed PFPT to help with pelvic floor dysfunction 03/19/25 -???-???-???-???-???-??? -???-???-???-???-???-??? - 16w 3d 142 lb 6 oz 103/70 Negative -???-???-???-???-?? (more content not included)... Normal [facility] Urine cultureOrdered By: Victor Manuel Harrell on 03-19-2025 Bacteria identified Cx Nom (U) GPC Poss Enterococcus sp Abnormal [facility] Laboratory - Chemistry and C hemistry - challengeOrdered By: Marcie Santana on 02-22-2025 Glucose Ql (U) Negative [facility] Laboratory - UrinalysisOrder ed By: Marcie Santana on 02-22-2025 Protein Ql (U) Negative [facility] Yeast Culture Operator Office Visit Reporton 02-22-2025 Yeast Culture Operator Office Visit Report [facility] [address], [address] [place] [address] OFFICE VISIT Date of Service: 02/22/25 MR#: [id number] Acct: [id number] Name: KM STRANGE Rep #: [id number] : 1995 Provider: Dr. Marcie hernandez MD Age/Sex: 29/F Location: [facility] [place] Status: Signed Intake Vital Signs 11/05/24 15:17 01/26/25 13:35 02/22/25 09:25 Height 5 ft 5 ft 5 ft Weight: 133 lb 6 oz BMI 26.0 BP 103/72 Intake Visit Reasons: 13wk OB [employer] Required: No Is patient in pain?: No Feel stressed/tense/nervous/a nxious/difficulty sleeping: not at all Allergies Sulfa (Sulfonamide Antibiotics) Allergy (Intermediate, Verified 02/22/25 09:32) Hives Medications ???Medication ???Instructions ???Recorded ???Confirmed ???Type pantoprazole 40 mg tablet,delayed 40 mg PO DAILY 02/18/23 02/22/25 History release ondansetron 4 mg disintegrating 4 mg PO Q8H PRN PRN Nausea #10 tab s 11/05/24 02/22/25 Rx tablet coQ10 (ubiquinol) 100 mg capsule 100 mg PO BID 01/12/25 02/22/25 Hi story (QH-absorb) docosahexaenoic acid 200 mg mg PO 01/12/25 02/22/25 History capsule ( DHA) docusate sodium 100 mg capsule 100 mg PO QDAY 01/12/25 02/22/25 H istory loratadine 10 mg tablet (Claritin) 10 mg PO QDAY 01/12/25 02/22/25 History sertraline 50 mg tablet (Zoloft) 50 mg PO QDAY 01/12/25 02/22/25 Hi story Last Menstrual Period: 11/24/24 Zika: Zika virus screening: Negative : No PFSH PFSH Medical History Arthritis Asthma Surgical History S/P laparoscopic procedure History of appendectomy Family History Mother Diabetes Hypertension Thyroid cancer Cervical cancer Father Hypertension Social History adopted: No household members: spouse housing: house current occupational status: employed 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 occupational 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/hazards: No pets and animals: Yes pets and animals: dog(s) history of recent travel: No sexually active: Yes Smoking Status: Never smoker second hand exposure: No alcohol intake: current alcohol intake frequency: holidays/special occasions only details: Not while substance use type: does not use well-balanced diet: daily or most days caffeine: Yes Type: coffee eating out: rarely or never during the past year weight has: remained stable what type of physical activity do you participate in: walking ken/restorationist: Yazidi seatbelt use: always do you feel safe at home: Yes 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 OB Visit ERIN Calculator Estimated Delivery Date Method Current WG Current Estimate 08/31/25 LMP (Certain) 12w 6d Expected Delivery Route/Plan Labor Preferences- CB/BF classes: [] labor support person: [] labor intervention preferences: [] pain management options preferred: [] cut cord/dad catch: [] : [] PP control planned: [] discussed possible routes of delivery and associated risks: [] special requests: [] Specific Issue/Plans Covid status: [] Flu vaccine: [] Tdap vaccine: [] Rhogam: [] LARC form signed: [] Problem list reviewed and updated with the most current plan of care details and appropriate orders placed. Relevant counseling for the gestational age provided. Continue routine care and follow up unless otherwise noted in visit notes/problem list details Initial Weight: Not Recorded Date -???-???-???-???-???-??? -???-???-???-???-???-??? - EGA Weight BP Urine Prot -???-???-???-???-???-??? -???-???-???-???-???-??? - Glucose FHR FuHt Pres Dilation -???-???-???-???-???-??? -???-???-???-???-???-??? - Effaced St Visit Note 01/26/25 -???-???-???-???-???-??? -???-???-???-???-???-??? - 9w 0d 128 lb 8 oz 106/74 -???-???-???-???-???-??? -???-???-???-???-???-??? - 175 -???-???-???-???-???-??? -???-???-???-???-???-??? - LC- CRL 1.75 cm con with lmp. declines nipt. 02/22/25 -???-???-???-???-???-??? -???-???-???-???-???-??? - 12w 6d 133 lb 6 oz 103/72 Negative -???-???-???-???-???-??? -???-???-???-???-???-??? - Negative 150 -???-???-???-???-???-??? -???-???-???-???-???-??? - SM- no vb cr amping discussed PFPT to help with pelvic floor dysfunction [facility] First Tr (more content not included)... Normal [facility] Inital Evaluation (1) - PTon 02-20-2025 Inital Evaluation (1) - PT [facility] Physical Therapy [facility] [address] [place] [address] / REHABILITATION SERVICES INITIAL EVALUATION MR#: [id number] Acct: [id number] Name: KM STRANGE Rep #: [id number] : 1995 29 From: Felicity Allan Referring Dr.: Apple Browne CNM Status: REG R Insurance: [facility] [employer] INSURANCE Patient's Visit Information Visit Information Visit Information: KM STRANGE is a 29 year old F referred to Physical Therapy by Apple Browne CNM with a diagnosis of Unspecified dyspareunia N94.10. Date of Evaluation: 02/20/25 Physical Therapist: Felicity Allan Visit Plan Frequency: 1-2x /Week Duration: 6 Months Plan: Km would benefit from skilled PT intervention to address her bladder frequency, pelvic floor tightness/dyspareunia and pelvic/abdominal discomfort. We will perform a pelvic floor exam once approved by her HEAD OF ETHICS AND COMPLIANCE. She does have some lumbar dysfunction with malalignments and muscle tightness as well which is also likely contributing. We may consider doing a bladder diary and education on bladder irritants to also help manage her urinary frequency. My plan is to continue helping her thru her and managing her back pain complaints. Continue 1-2 x week depending on scheduling. Will wait for approval from Dr. Santana on doing internal exam/work? Will work on lumbar spine in meantime as that may be contributing to her frequency and/or pelvic/abdominal bloating and discomfort. How is she doing with happy baby stretch followed by press ups? Show her list of bladder irritants. May consider a bladder diary at a future visit depending on how her symptoms improve. Subjective Subjective: She is her first trimester of . She is 12 weeks . Uncomplicated so far. She has endometriosis. She did fertility drugs to get . She had her endo surgery in 2023. She didn't notice any improvement after the surgery. She was having bloating, and abdominal pain, pain with intercourse. Then she saw a urologist who diagnosed her IC. She was using a suppository vaginally and it didn't help a week before she got . OB said there was tightness in her pelvic floor. She was seeing a pelvic floor therapist in [place]. She wasn't able to go weekly due to the distance she was driving. She stopped going as they stopped doing internal as she got . She also had dilators that she was using. She has only had intercourse once since and it was very painful and she stated she tore a little bit. Before she got , she states tampon insertion was impossible (she used to be able to insert tampons years before). Most of her pain with intercourse was internal. [place] pain lately 7 -03/11. She feels like she urinating once an hour. She hasn't been great about drinking, as she gets anxious about finding a bathroom. She had to sit down with an admin at work to discuss the fact that she has to urinate so often. 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 She was getting up 5 x night in beginning of but now 2-3 x night. She goes 2-3 x during the first hour she gets up in the morning. Urologist said her bladder emptying wasn't concerning. She doesn't leak besides with vomiting. No incontinence with cough or sneeze. She would not be able to squat and urinate if she is out camping as her body is not relaxed in a different position besides when she is sitting on the toilet with her stool. She has intermittent low back pain. She feels it in the left lumbar. Sometimes she can't move her left leg after getting up after sitting a while. 8-9/10. Pain doesn't radiate down the leg. She feels bloating and pressure in lower abdomen when she doesn't have a bowel movement. She used to have sharp pains before the endo surgery as she had to hold her side (right side). She has a lot of trouble urinating. Sometimes if she has a big urge to urinate, it just dribbles. She uses a stool to urinate. She has struggled with constipation for years. She is going once every 2-3 days (used to be more daily before the ). Her goals would be to urinate less often and no pain with intercourse. She wants to also prepare for a vaginal delivery. Pain pelvic: Pain Intensity (Out of 10): 7 Pain Intensity Range: 8 low back pain: Pain Intensity (Out of 10): 8 Pain Intensity Range: 9 Objective Objective: Lumbar range of motion: Flexion no change Extension pinch in right lumbar Sidebending no change Rotation no change Right great toe extension 4-/5 Negative slump test and seated SLR test Left upslip, Left rotation L4-L5, right rotation L1-2 Press ups full range and painfree Tender and tight in lumbar, piriformis Mild pulling (more content not included)... Normal [facility] Chlamydia/GC SHANAE aptimaon CHLAMY,NUC ACID Negative Normal Negative [facility] Comment on above: Performed By: #### L 3890.6301, L7000.1800, BTS, M100.2200, L3890.6102, L3890.6006, L509.8002, L509.4006, L100.0100 ####[facility] [address] [place], [address] GC BY NUC ACID Negative Normal Negative [facility] Comment on above: Result Comment: Perf ormed at: =G - [facility] [address] [place] [id number] Icu Rn: Taylor Kim MD, Phone: [phone] Performed By: #### L 3890.6301, L7000.1800, BTS, M100.2200, L3890.6102, L3890.6006, L509.8002, L509.4006, L100.0100 ####[facility] [address] [place], [address] Urine Cultureon 01-27-2025 URC Culture exhibits no growth. Normal [facility] Comment on above: Performed By: #### L 3890.6301, L7000.1800, BTS, M100.2200, L3890.6102, L3890.6006, L509.8002, L509.4006, L100.0100 ####[facility] [address] [place], [address] Absolute lymphocyte countOrd ered By: Apple Browne on 01-26-2025 Lymphocytes Auto (Unsp spec) [#/Vol] 1.83 10*3/uL 0.83-4.51 [facility] Absolute neutrophil countOrd ered By: Apple Browne on 01-26-2025 Neutrophils (Bld) [#/Vol] 5.2 10*3/uL 2.0-7.7 [facility] Automated lymphocyte count a s percentage of total leukocytesOrdered By: Apple Browne on 01-26-2025 Lymphocytes/100 WBC Auto (Unsp spec) 23.4 % 19-41 [facility] Basophil percentageOrdered B y: Apple Browne on 01-26-2025 Basophils/100 WBC (Bld) 0.4 % 0-1 [facility] CBC W/Diff, Automatedon 01-01 Absolute Lymph 1.83 X10 3/uL Normal 0.83-4.51 [facility] Comment on above: Performed By: #### L 3890.6301, L7000.1800, BTS, M100.2200, L3890.6102, L3890.6006, L509.8002, L509.4006, L100.0100 #### [facility] [address] [place], [address] ( Absolute Neut 5.2 X10 3/uL Normal 2.0-7.7 [facility] Comment on above: Performed By: #### L 3890.6301, L7000.1800, BTS, M100.2200, L3890.6102, L3890.6006, L509.8002, L509.4006, L100.0100 #### [facility] [address] [place], [address] Basophils/100 WBC (Bld) 0.4 % Normal 0-1 [facility] Comment on above: Performed By: #### L 3890.6301, L7000.1800, BTS, M100.2200, L3890.6102, L3890.6006, L509.8002, L509.4006, L100.0100 #### [facility] [address] [place], [address] Eosinophils/100 WBC (Bld) 3.2 % Normal 0-5 [facility] Comment on above: Performed By: #### L 3890.6301, L7000.1800, BTS, M100.2200, L3890.6102, L3890.6006, L509.8002, L509.4006, L100.0100 #### [facility] [address] [place], [address] Erythrocyte distribution width (RBC) [Ratio] 11.8 % Normal 11.6-14.6 [facility] Comment on above: Performed By: #### L 3890.6301, L7000.1800, BTS, M100.2200, L3890.6102, L3890.6006, L509.8002, L509.4006, L100.0100 #### [facility] [address] [place], [address] Hematocrit (Bld) [Volume fraction] 37.4 % Normal 37-47 [facility] Comment on above: Performed By: #### L 3890.6301, L7000.1800, BTS, M100.2200, L3890.6102, L3890.6006, L509.8002, L509.4006, L100.0100 #### [facility] [address] [place], [address] Hemoglobin (Bld) [Mass/Vol] 13.2 g/dL Normal 12.0-15.0 [facility] Comment on above: Performed By: #### L 3890.6301, L7000.1800, BTS, M100.2200, L3890.6102, L3890.6006, L509.8002, L509.4006, L100.0100 #### [facility] [address] [facility] [place], [address] IG% 0.400 Normal 0.0-0.9 [facility] Comment on above: Result Comment: IG% - Immature Granulocytes (promyelocytes, myelocytes and metamyelocytes) > 1% indicates that a LEFT SHIFT is Present. Performed By: #### L 3890.6301, L7000.1800, BTS, M100.2200, L3890.6102, L3890.6006, L509.8002, L509.4006, L100.0100 #### [facility] [address] [place], [address] Lymphocytes/100 WBC (Bld) 23.4 % Normal 19-41 [facility] Comment on above: Performed By: #### L 3890.6301, L7000.1800, BTS, M100.2200, L3890.6102, L3890.6006, L509.8002, L509.4006, L100.0100 #### [facility] [address] [place], [address] MCH (RBC) [Entitic mass] 31.1 pg Normal 27.0-32.0 [facility] Comment on above: Performed By: #### L 3890.6301, L7000.1800, BTS, M100.2200, L3890.6102, L3890.6006, L509.8002, L509.4006, L100.0100 #### [facility] [address] [place], [address] MCHC (RBC) [Mass/Vol] 35.3 g/dL Normal 32-36 [facility] Comment on above: Performed By: #### L 3890.6301, L7000.1800, BTS, M100.2200, L3890.6102, L3890.6006, L509.8002, L509.4006, L100.0100 #### [facility] [address] [place], [address] MCV (RBC) [Entitic vol] 88.2 fL Normal 81-99 [facility] Comment on above: Performed By: #### L 3890.6301, L7000.1800, BTS, M100.2200, L3890.6102, L3890.6006, L509.8002, L509.4006, L100.0100 #### [facility] [address] [facility], [address] Monocytes/100 WBC (Bld) 6.9 % Normal 0-10 [facility] Comment on above: Performed By: #### L 3890.6301, L7000.1800, BTS, M100.2200, L3890.6102, L3890.6006, L509.8002, L509.4006, L100.0100 #### [facility] [address] [place], [address] Neutrophils/100 WBC (Bld) 65.7 % Normal 47-70 [facility] Comment on above: Performed By: #### L 3890.6301, L7000.1800, BTS, M100.2200, L3890.6102, L3890.6006, L509.8002, L509.4006, L100.0100 #### [facility] [address] [place], [address] Nucleated RBC (Bld) [#/Vol] 0 10*3/uL Normal 0-5 [facility] Comment on above: Performed By: #### L 3890.6301, L7000.1800, BTS, M100.2200, L3890.6102, L3890.6006, L509.8002, L509.4006, L100.0100 #### [facility] [address] [place], [address] Platelet mean volume (Bld) [Entitic vol] 10.6 fL Normal 6.2-12.0 [facility] Comment on above: Performed By: #### L 3890.6301, L7000.1800, BTS, M100.2200, L3890.6102, L3890.6006, L509.8002, L509.4006, L100.0100 #### [facility] [address] [place], [address] Platelets (Bld) [#/Vol] 213 10*3/uL Normal 150-450 [facility] Comment on above: Performed By: #### L 3890.6301, L7000.1800, BTS, M100.2200, L3890.6102, L3890.6006, L509.8002, L509.4006, L100.0100 #### [facility] [address] [place], [address] RBC (Bld) [#/Vol] 4.24 10*6/uL Normal 4.2-5.4 [facility] Comment on above: Performed By: #### L 3890.6301, L7000.1800, BTS, M100.2200, L3890.6102, L3890.6006, L509.8002, L509.4006, L100.0100 #### [facility] [address] [place], [address] RDW SD 38.0 fl Normal 35.1-43.9 [facility] Comment on above: Performed By: #### L 3890.6301, L7000.1800, BTS, M100.2200, L3890.6102, L3890.6006, L509.8002, L509.4006, L100.0100 #### [facility] [address] [place], [address] WBC (Bld) [#/Vol] 7.8 10*3/uL Normal 4.4-11.0 [facility] Comment on above: Performed By: #### L 3890.6301, L7000.1800, BTS, M100.2200, L3890.6102, L3890.6006, L509.8002, L509.4006, L100.0100 #### [facility] [address] [place], [address] Chlamydia trachomatis rRNA d etection by probe and target amplification methodOrdered By: Apple Browne on 01-26-2025 C. trachomatis rRNA SHANAE+probe Ql (Unsp spec) Negative Negative [facility] Eosinophil percentageOrdered By: Apple Browne on 01-26-2025 Eosinophils/100 WBC (Bld) 3.2 % 0-5 [facility] Erythrocyte distribution wid th ratioOrdered By: Apple Browne on 01-26-2025 Erythrocyte distribution width (RBC) [Ratio] 11.8 % 11.6-14.6 [facility] Erythrocyte distribution wid th standard deviationOrdered By: Apple Browne on 01-26-2025 Erythrocyte distribution width (RBC) [Ratio] 38.0 fl 35.1-43.9 [facility] HIVon 01-26-2025 HIV Non-Reactive Normal Nonreactive [facility] Comment on above: Result Comment: Non- Reactive Reactive Repeatedly reactive samples must be confirmed according to CDC recommended confirmatory algorithms. The subresults for either HIVAG or AHIV can be used as an aid in the selection of the confirmation algorithm for reactive samples. Send out specimens with Reactive results to [facility] for confirmation. Order the HIV antibody detection and differentiation: lc#[id number] Performed By: #### L 3890.6301, L7000.1800, BTS, M100.2200, L3890.6102, L3890.6006, L509.8002, L509.4006, L100.0100 #### [facility] [address] [facility] [place], [place], [id number] Hematocrit Auto (Bld) [Volum e fraction]Ordered By: Apple Browne on 01-26-2025 Hematocrit (Bld) [Volume fraction] 37.4 % 37-47 [facility] Hemoglobin measurementOrdere d By: Apple Browne on 01-26-2025 Hemoglobin (Bld) [Mass/Vol] 13.2 g/dL 12.0-15.0 [facility] Hepatitis C Antibodyon 01-26 Hepatitis C Ab Non-Reactive Normal Nonreactive [facility] Comment on above: Result Comment: Reac tive: Presumptive evidence of antibodies to HCV. Follow CDC recommendations for supplemental testing. Non-Reactive: Antibodies to HCV were not detected; does not exclude the possibility of exposure to HCV Reactive Results are presumptive evidence of antibodies to HCV. Follow CDC recommendations for supplemental testing. Order confirmation testing: HCV Quant by PCR testing - HCVPCR #[id number] Non Reactive: < 0.8 Equivocal: >/= 0.8 to < 1.0 Reactive: >/= 1.0 The CDC requires that a reactive/equivocal HCV antibody result be sent out for confirmation. HCV Quant by PCR testing. Performed By: #### L 3890.6301, L7000.1800, BTS, M100.2200, L3890.6102, L3890.6006, L509.8002, L509.4006, L100.0100 ####[facility] [address] [place], [place], [id number]) Immature granulocytes/100 WB C Auto (Bld)Ordered By: Apple Browne on 01-26-2025 Immature granulocytes/100 WBC (Bld) 0.400 % 0.0-0.9 [facility] Comment on above: IG% - Immature Granu locytes (promyelocytes, myelocytes and metamyelocytes) > 1% indicates that a LEFT SHIFT is Present. L3890.6102on 01-26-2025 HEP B Surf Ag Non-Reactive Normal Nonreactive [facility] Comment on above: Result Comment: Reac tive: Presumptive evidence of HBV. Repeatedly reactive samples must be confirmed using a neutralization test ([employer] HBsAg Confirmatory Test) Non-Reactive: HBsAg not detected; does not exclude the possibility of exposure to HBV Performed By: #### L 3890.6301, L7000.1800, BTS, M100.2200, L3890.6102, L3890.6006, L509.8002, L509.4006, L100.0100 ####[facility] [address] [facility] [place], [place], [id number] L509.4006on 01-26-2025 Rubella IgG REAC Normal Nonreactive [facility] Comment on above: Result Comment: Anti body Result: Interpretation Non-Reactive: Non-Immune Reactive: Immune The following results were obtained with the [employer] Rubella IgG assay. Results from assays of other manufacturers cannot be used interchangeably. Performed By: #### L 3890.6301, L7000.1800, BTS, M100.2200, L3890.6102, L3890.6006, L509.8002, L509.4006, L100.0100 #### [facility] [address] [facility] [place], [place], [id number] Laboratory - Microbiology an d Antimicrobial susceptibilityOrdered By: Apple Browne on 01-26-2025 HBV surface Ag Ql (S) Non-Reactive Nonreactive [facility] Comment on above: Reactive: Presumptiv e evidence of HBV. Repeatedly reactive samples must be confirmed using a neutralization test ([employer] HBsAg Confirmatory Test)Non-Reactive: HBsAg not detected; does not exclude the possibility of exposure to HBV MCV (mean corpuscular volume ) determinationOrdered By: Apple Browne on 01-26-2025 MCV (RBC) [Entitic vol] 88.2 fL 81-99 [facility] Mean corpuscular hemoglobin (MCH) determinationOrdered By: Apple Browne on 01-26-2025 MCH (RBC) [Entitic mass] 31.1 pg 27.0-32.0 [facility] Mean corpuscular hemoglobin concentration (MCHC) determinationOrdered By: Apple Browne on 01-26-2025 MCHC (RBC) [Mass/Vol] 35.3 g/dL 32-36 [facility] Mean platelet volume determi nationOrdered By: Apple Browne on 01-26-2025 Platelet mean volume (Bld) [Entitic vol] 10.6 fL 6.2-12.0 [facility] Monocyte percentageOrdered B y: Apple Browne on 01-26-2025 Monocytes/100 WBC (Bld) 6.9 % 0-10 [facility] Neisseria gonorrhoeae nuclei c acid detection by amplified probe techniqueOrdered By: Apple Browne on 01-26-2025 N. gonorrhoeae DNA SHANAE+probe Ql (Unsp spec) Negative Negative [facility] Comment on above: Performed at: =G - [address] [id number] Director: Taylor Kim MD, Phone: [phone] Neutrophil percentageOrdered By: Apple Browne on 01-26-2025 Neutrophils/100 WBC (Bld) 65.7 % 47-70 [facility] No Panel InformationOrdered By: Apple Browne on 01-26-2025 HIV (1&2) Antibody Non-Reactive Nonreactive [facility] Comment on above: Non-ReactiveReactive Repeatedly reactive samples must be confirmed according to CDC recommended confirmatory algorithms. The subresults for either HIVAG or AHIV can be used as an aid in the selection of the confirmation algorithm for reactive samples.Send out specimens with Reactive results to [facility] for confirmation.Order the HIV antibody detection and differentiation: #[id number] Nucleated red blood cell per centageOrdered By: Apple Browne on 01-26-2025 Nucleated RBC/100 WBC (Bld) [Ratio] 0 % 0-5 [facility] Yeast Culture Operator Office Visit Reporton 01-26-2025 Yeast Culture Operator Office Visit Report [facility] [address] [place] [address], [address] [place] [address] OFFICE VISIT Date of Service: 01/26/25 MR#: [id number] Acct: [id number] Name: KM STRANGE Rep #: [id number] : 1995 Provider: SHI price Age/Sex: 29/F Location: [facility] [place] Status: Signed Intake Vital Signs 11/05/24 15:17 01/12/25 09:14 01/26/25 13:35 Height 5 ft 5 ft 5 ft Weight: 128 lb 8 oz BMI 25.0 BP 106/74 Intake Visit Reasons: *EST* NOB LMP 11/24, ERIN 08/31 Chief Complaint: New ob [employer] Required: No Is patient in pain?: No Allergies Sulfa (Sulfonamide Antibiotics) Allergy (Intermediate, Verified 01/26/25 13:34) Hives Medications ???Medication ???Instructions ???Recorded ???Confirmed ???Type pantoprazole 40 mg tablet,delayed 40 mg PO DAILY 02/18/23 01/26/25 History release ondansetron 4 mg disintegrating 4 mg PO Q8H PRN PRN Nausea #10 tab s 11/05/24 01/26/25 Rx tablet coQ10 (ubiquinol) 100 mg capsule 100 mg PO BID 01/12/25 01/26/25 Hi story (QH-absorb) docosahexaenoic acid 200 mg mg PO 01/12/25 01/26/25 History capsule ( DHA) docusate sodium 100 mg capsule 100 mg PO QDAY 01/12/25 01/26/25 H istory loratadine 10 mg tablet (Claritin) 10 mg PO QDAY 01/12/25 01/26/25 History sertraline 50 mg tablet (Zoloft) 50 mg PO QDAY 01/12/25 01/26/25 Hi story Last Menstrual Period: 11/24/24 : No Have you fallen in the past year?: No PFSH PFSH Medical History Arthritis Asthma Surgical History S/P laparoscopic procedure History of appendectomy Family History Mother Diabetes Hypertension Thyroid cancer Cervical cancer Father Hypertension Social History adopted: No household members: spouse housing: house current occupational status: employed 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 occupational exposures/hazards: No pets and animals: Yes pets and animals: dog(s) history of recent travel: No sexually active: Yes Smoking Status: Never smoker second hand exposure: No alcohol intake: current alcohol intake frequency: holidays/special occasions only details: Not while substance use type: does not use well-balanced diet: daily or most days caffeine: Yes Type: coffee eating out: rarely or never during the past year weight has: remained stable what type of physical activity do you participate in: walking ken/restorationist: Yazidi seatbelt use: always do you feel safe at home: Yes 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 OB Visit ERIN Calculator Estimated Delivery Date Method Current WG Current Estimate 08/31/25 LMP (Certain) 9w 0d Estimated Due Date: 08/31/25 Expected Delivery Route/Plan Labor Preferences- CB/BF classes: [] labor support person: [] labor intervention preferences: [] pain management options preferred: [] cut cord/dad catch: [] : [] PP control planned: [] discussed possible routes of delivery and associated risks: [] special requests: [] Specific Issue/Plans Covid status: [] Flu vaccine: [] Tdap vaccine: [] Rhogam: [] LARC form signed: [] Problem list reviewed and updated with the most current plan of care details and appropriate orders placed. Relevant counseling for the gestational age provided. Continue routine care and follow up unless otherwise noted in visit notes/problem list details Initial Weight: Not Recorded Date -???-???-???-???-???-??? -???-???-???-???-???-??? - EGA Weight BP Urine Prot -???-???-???-???-???-??? -???-???-???-???-???-??? - Glucose FHR FuHt Pres Dilation -???-???-???-???-???-??? -???-???-???-???-???-??? - Effaced St Visit Note 01/26/25 -???-???-???-???-???-??? -???-???-???-???-???-??? - 9w 0d 128 lb 8 oz 106/74 -???-???-???-???-???-??? -???-???-???-???-???-??? - 175 -???-???-???-???-???-??? -???-???-???-???-???-??? - LC- CRL 1.75 cm con with lmp. declines nipt. 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 ) and Negative: Diabetes, Hypertension, Heart disease, Auto-immune disorder, Kidney disease/UTI, Neurologic/epilepsy, Psychiatric, Depression/ depression, Hepatit (more content not included)... Normal [facility] Platelet countOrdered By: Jada Browne on 01-26-2025 Platelets (Bld) [#/Vol] 213 10*3/uL 150-450 [facility] RBC Auto (Bld) [#/Vol]Ordere d By: Apple Browne on 01-26-2025 RBC (Bld) [#/Vol] 4.24 10*6/uL 4.2-5.4 [facility] Syphilis Antibodieson 2024 Syphilis Abs Non-Reactive Normal Nonreactive [facility] Comment on above: Performed By: #### L 3890.6301, L7000.1800, BTS, M100.2200, L3890.6102, L3890.6006, L509.8002, L509.4006, L100.0100 #### [facility] [address] [place], [address] Type AND Screenon 01-26-2025 ABO and Rh group Nom (Bld) Blood group A Rh(D) positive Normal [facility] Comment on above: Order Comment: PN Performed By: #### L 3890.6301, L7000.1800, BTS, M100.2200, L3890.6102, L3890.6006, L509.8002, L509.4006, L100.0100 ####[facility] [address] [place], [address] Urine cultureOrdered By: Sarah Browne on 01-26-2025 Bacteria identified Cx Nom (U) Culture exhibits no growth. [facility] White blood cell (WBC) count Ordered By: Apple Browne on 01-26-2025 WBC (Bld) [#/Vol] 7.8 10*3/uL 4.4-11.0 [facility] Laboratory - Chemistry and C hemistry - challengeOrdered By: Kirsten Herrmann on 01-12-2025 HCG ( test) Ql (U) Positive [facility] Office Visit Reporton 2024 Office Visit Report [facility] [address] [place] [address] OFFICE VISIT Date of Service: 01/12/25 MR#: [id number] Acct: [id number] Patient: KM STRANGE Rep #: [id number] : 1995 Provider: Dr. Kirsten Mason DO Age/Sex: 29/F Location: [facility] [place] Status: Signed Intake Vital Signs 11/05/24 15:17 01/12/25 09:14 Height 5 ft 5 ft Weight: 125 lb BMI 24.4 BP 116/64 Intake Visit Reasons: Pre new ob, confirm preg, vitals Chief Complaint: PNOB Accompanied by: Allergies Sulfa (Sulfonamide Antibiotics) Allergy (Intermediate, Verified 01/12/25 08:20) Hives Medications ???Medication ???Instructions ???Recorded ???Confirmed ???Type pantoprazole 40 mg tablet,delayed 40 mg PO DAILY 02/18/23 01/12/25 History release ondansetron 4 mg disintegrating 4 mg PO Q8H PRN PRN Nausea #10 tab s 11/05/24 01/12/25 Rx tablet coQ10 (ubiquinol) 100 mg capsule 100 mg PO BID 01/12/25 01/12/25 Hi story (QH-absorb) docosahexaenoic acid 200 mg mg PO 01/12/25 01/12/25 History capsule ( DHA) docusate sodium 100 mg capsule 100 mg PO QDAY 01/12/25 01/12/25 H istory loratadine 10 mg tablet (Claritin) 10 mg PO QDAY 01/12/25 01/12/25 History sertraline 50 mg tablet (Zoloft) 50 mg PO QDAY 01/12/25 01/12/25 Hi story Is last menstrual period known: Yes Post menopausal: No Patient : Yes Have you fallen in the past year?: No Nurse's Note: Pt here for secondary amenorrhea. Office UPT: positive. Vitals WNL. PNOB questions completed. Problem list, allergies, and medications updated. First trimester ACOG education completed. Results POC Urine Office , Urine Positive Last Edit by Jaelyn Patterson RN on 01/12/25 09:15 Nursing Note patient is here for amenorrhea and to rule out . Assessment and Plan Assessment and Plan (1) Amenorrhea: Status: Acute Plan: + test. plan to return with provider for new ob appt Orders: Orders CBC W/Diff, Automated Today Apple Browne CNM O09.90 - Supervision of high risk , unspecified, unspecified trimester Type Screen Today Apple Browne CNM O09.90 - Supervision of high risk , unspecified, unspecified trimester Rubella IgG Today Apple Browne CNM O09.90 - Supervision of high risk , unspecified, unspecified trimester Hepatitis C Antibody Today Apple Browne CNM O09.90 - Supervision of high risk , unspecified, unspecified trimester Hepatitis B Surface Antigen Today [employer]ne CNM O09.90 - Supervision of high risk , unspecified, unspecified trimester Culture, Urine Today [employer]ne CNM O09.90 - Supervision of high risk , unspecified, unspecified trimester Syphilis Antibodies Today Apple Browne CNM O09.90 - Supervision of high risk , unspecified, unspecified trimester Chlamydia/GC SHANAE aptima Today Apple Browne CNM O09.90 - Supervision of high risk , unspecified, unspecified trimester HIV Today Apple Browne CNM O09.90 - Supervision of high risk , unspecified, unspecified trimester POC Urine Today Dr. Kirsten Aragon, DO N91.1 - Secondary amenorrhea Clinical Quality Measures Falls Risk Screening/Assistive Devices Have you fallen in the past year?: No 01/12/25 2312 Date Kirsten Aragon DO Cosign Signature: Date (if applicable) CC: Normal [facility] CBC AND ELECTRONIC DIFFon Abs Baso Auto < Normal 0.00-0.15 [facility] Comment on above: Performed By: #### L AB980 #### [facility] (DEFAULT) [address] [address] Basophils/100 WBC (Bld) 0.5 % Normal [facility] Comment on above: Performed By: #### L AB980 #### [facility] (DEFAULT) [address] [address] DIFF STATUS Electronic Differential Normal [facility] Comment on above: Performed By: #### L AB980 #### [facility] (DEFAULT) [address] [address] Eosinophils (Bld) [#/Vol] 0.12 10*3/uL Normal 0.00-0.42 [facility] Comment on above: Performed By: #### L AB980 #### [facility] (DEFAULT) [address] [address] Eosinophils/100 WBC (Bld) 1.8 % Normal [facility] Comment on above: Performed By: #### L AB980 #### [facility] (DEFAULT) [address] [address] Hematocrit (Bld) [Volume fraction] 37.5 % Normal 34.9-44.3 [facility] Comment on above: Performed By: #### L AB980 #### [facility] (DEFAULT) [address] [address] Hemoglobin (Bld) [Mass/Vol] 13.2 g/dL Normal 11.4-15.2 [facility] Comment on above: Performed By: #### L AB980 #### [facility] (DEFAULT) [address] [address] Immature Grans % 0.2 % Normal [facility] Comment on above: Performed By: #### L AB980 #### [facility] (DEFAULT) [address] [address] Immature Grans Absolute < Normal <=0.08 [facility] Comment on above: Performed By: #### L AB980 #### [facility] (DEFAULT) [address] [address] Lymphocytes (Bld) [#/Vol] 2.17 10*3/uL Normal 1.16-3.51 [facility] Comment on above: Performed By: #### L AB980 #### [facility] (DEFAULT) [address] [address] Lymphocytes/100 WBC (Bld) 32.8 % Normal [facility] Comment on above: Performed By: #### L AB980 #### [facility] (DEFAULT) [address] [place] [address] MCV (RBC) [Entitic vol] 86.0 fL Normal 79.6-97.7 [facility] Comment on above: Performed By: #### L AB980 #### [facility] (DEFAULT) [address] [place] [address] Mean Cell Hgb 30.3 pg Normal 25.9-33.9 [facility] Comment on above: Performed By: #### L AB980 #### [facility] (DEFAULT) [address] [address] Mean Cell Hgb Conc 35.2 g/dL Normal 31.4-35.9 [facility] Comment on above: Performed By: #### L AB980 #### [facility] (DEFAULT) [address] [address] Monocytes (Bld) [#/Vol] 0.39 10*3/uL Normal 0.22-0.87 [facility] Comment on above: Performed By: #### L AB980 #### [facility] (DEFAULT) [address] [address] Monocytes/100 WBC (Bld) 5.9 % Normal [facility] Comment on above: Performed By: #### L AB980 #### [facility] (DEFAULT) [address] [address] Nucleated RBC 0.0 /100 WBC Normal <=0.[address] [facility] Comment on above: Performed By: #### L AB980 #### [facility] (DEFAULT) [address] [address] Platelet mean volume (Bld) [Entitic vol] 11.0 fL Normal 8.5-12.2 [facility] Comment on above: Performed By: #### L AB980 #### [facility] (DEFAULT) [address] [place] [address] Platelets (Bld) [#/Vol] 181 10*3/uL Normal 150-393 [facility] Comment on above: Performed By: #### L AB980 #### [facility] (DEFAULT) [address] [address] RBC (Bld) [#/Vol] 4.36 10*6/uL Normal 3.91-5.04 [facility] Comment on above: Performed By: #### L AB980 #### [facility] (DEFAULT) [address] [place] [address] RBC Distribution 11.4 % Normal 10.8-14.9 [facility] Comment on above: Performed By: #### L AB980 #### [facility] (DEFAULT) [address] [place] [address] Segs + Bands Auto 58.8 % Normal [facility] Comment on above: Performed By: #### L AB980 #### [facility] (DEFAULT) [address] [place] [address] Segs + Bands,Absolute Auto 3.90 K/uL Normal 1.64-7.28 [facility] Comment on above: Performed By: #### L AB980 #### [facility] (DEFAULT) [address] [place] [address] WBC (Bld) [#/Vol] 6.62 10*3/uL Normal 3.99-11.19 [facility] Comment on above: Performed By: #### L AB980 #### [facility] (DEFAULT) [address] [address] VZYMBMNKI-FAVBA-1,3-GALACTOS E IGEon 01-04-2025 Bjcqbblmd-hoxvj-3,3-ga lactose, IgE <0.10 Normal <0.70 [facility] Comment on above: Result Comment: Clas s 0 (Negative <0.10) Test Performed by: [facility] [address] [place] [address] Icu Rn: Aliyah Elmore Ph.D.; CLIA# [id number] Performed By: #### Y FGA13 #### [facility] (DEFAULT) [address] [place] [address] IMMUNOGLOBULIN IGEon 025 Total IgE 52.4 IU/mL Normal <=165.3 [facility] Comment on above: Performed By: #### I GE #### [facility] (DEFAULT) [address] [place] [address] MAST CELL TRYPTASEon 025 Tryptase 3.2 ng/mL Normal <11.5 [facility] Comment on above: Result Comment: Test Performed by: [facility] [address] [place] [address] Icu Rn: Aliyah Elmore Ph.D.; CLIA# [id number] Performed By: #### Y MAST #### [facility] (DEFAULT) [address] [place] [address] Measure post void residualon 01-02-2025 PVR=80 [facility] Work Phone: [phone] [facility] Work Phone: )[phone] POCT UA Automated manually r esultedon 01-02-2025 Glucose Test strip (U) [Mass/Vol] Negative NEGATIVE mg/dl [facility] Work Phone: [phone] Hemoglobin Ql (U) Negative NEGATIVE [facility] Work Phone: Leukocyte esterase Test strip Ql (U) Negative NEGATIVE [facility] Work Phone: Nitrite Ql (U) Negative NEGATIVE [facility] Work Phone: pH (U) 6.5 [pH] No Reference Range Established [facility] Work Phone: [phone] POC Bilirubin, Urine Negative NEGATIVE [facility] Work Phone: [phone] POC Ketones, Urine Negative NEGATIVE mg/dl [facility] Work Phone: )[phone] POC Protein, Urine Negative NEGATIVE mg/dl [facility] Work Phone: POC Specific [place], Urine 1.010 1.005 - 1.035 [facility] Work Phone: POC Urobilinogen, Urine 0.2 0.2, 1.0 EU/DL [facility] Work Phone: [facility] Work Phone: URINALYSIS REFLEXon 12-31-19 25 Appearance (U) CLEAR Normal CLEAR [facility] Comment on above: Order Comment: FASTI NG:UNKNOWN FASTING: UNKNOWN Performed By: #### 7 909 #### [facility] [place] [address] Ceramics Test Engineer: Jean Pierre Whitehead MD Bilirubin Ql (U) Negative Normal NEGATIVE [facility] Comment on above: Order Comment: FASTI NG:UNKNOWN FASTING: UNKNOWN Performed By: #### 7 909 #### [facility] [place] [address] Ceramics Test Engineer: Jean Pierre Whitehead MD Color (U) YELLOW Normal YELLOW [facility] Comment on above: Order Comment: FASTI NG:UNKNOWN FASTING: UNKNOWN Performed By: #### 7 909 #### [facility] [place] [address] Ceramics Test Engineer: Jean Pierre Whitehead MD Glucose Ql (U) Negative Normal NEGATIVE [facility] Comment on above: Order Comment: FASTI NG:UNKNOWN FASTING: UNKNOWN Performed By: #### 7 909 #### [facility] [place] [address] Ceramics Test Engineer: Jean Pierre Whitehead MD Ketones Ql (U) Negative Normal NEGATIVE [facility] Comment on above: Order Comment: FASTI NG:UNKNOWN FASTING: UNKNOWN Performed By: #### 7 909 #### [facility] [place] [address] Ceramics Test Engineer: Jean Pierre Whitehead MD Leukocyte esterase Test strip Ql (U) Negative Normal NEGATIVE [facility] Comment on above: Order Comment: FASTI NG:UNKNOWN FASTING: UNKNOWN Performed By: #### 7 909 #### [facility] of [address], [address] [place] [address] Ceramics Test Engineer: Jean Pierre Whitehead MD Nitrite Ql (U) Negative Normal NEGATIVE [facility] Comment on above: Order Comment: FASTI NG:UNKNOWN FASTING: UNKNOWN Performed By: #### 7 909 #### [facility] [address], [address] [place] [address] Ceramics Test Engineer: Jean Pierre Whitehead MD OCCULT BLOOD Negative Normal NEGATIVE [facility] Comment on above: Order Comment: FASTI NG:UNKNOWN FASTING: UNKNOWN Performed By: #### 7 909 #### [facility] [address], [address] [place] [address] Ceramics Test Engineer: Jean Pierre Whitehead MD pH (U) 7.5 [pH] Normal 5.0-8.0 [facility] Comment on above: Order Comment: FASTI NG:UNKNOWN FASTING: UNKNOWN Performed By: #### 7 909 #### [facility] [address], [address] [place] [address] Ceramics Test Engineer: Jean Pierre Whitehead MD Protein Ql (U) Negative Normal NEGATIVE [facility] Comment on above: Order Comment: FASTI NG:UNKNOWN FASTING: UNKNOWN Performed By: #### 7 909 #### [facility] [address], [address] [place] [address] Ceramics Test Engineer: Jean Pierre Whitehead MD Specific gravity (U) [Rel density] 1.005 Normal 1.001-1.035 [facility] Comment on above: Order Comment: FASTI NG:UNKNOWN FASTING: UNKNOWN Performed By: #### 7 909 #### [facility] [address], [address] [place] [address] Ceramics Test Engineer: Jean Pierre Whitehead MD Choriogonadotropin.beta subu niton 12-26-2024 [place]n 3[address] m[IU]/mL High <5 [facility] Comment on above: Order Comment: Total HCG measurement is performed using the [employer] Access Immunoassay which detects intact HCG and free beta HCG subunit. This test is not indicated for use as a tumor marker. HCG testing is performed using a different test methodology at [facility] than other [facility]. Direct result comparison should only be made within the same method. Result Comment: Low- level positive HCG results can be seen in early , in suzanne- or post-menopausal females due to normal pituitary HCG production, or with analytic interference. Repeat testing in 48-72 hours can aid in assessing for as results should double in this time period. FSH measurement is recommended in suzanne- or post-menopausal females as concurrent elevation of FSH can support pituitary production as the source of the HCG elevation. Performed By: #### 2 1198-7 #### JORGE L DACOSTA ([id number]) [facility] ([facility]) [address] [place] [address] Choriogonadotropin.beta subu niton 12-22-2024 HCG.beta subunit Qn 696 m[IU]/mL High <5 [facility] Comment on above: Order Comment: Total HCG measurement is performed using the [employer] Access Immunoassay which detects intact HCG and free beta HCG subunit. This test is not indicated for use as a tumor marker. HCG testing is performed using a different test methodology at [facility] than other [facility]. Direct result comparison should only be made within the same method. Result Comment: Low- level positive HCG results can be seen in early , in suzanne- or post-menopausal females due to normal pituitary HCG production, or with analytic interference. Repeat testing in 48-72 hours can aid in assessing for as results should double in this time period. FSH measurement is recommended in suzanne- or post-menopausal females as concurrent elevation of FSH can support pituitary production as the source of the HCG elevation. Performed By: #### 2 1198-7 #### JORGE L DACOSTA ([id number]) [facility] ([facility]) [address] [place], [place] [id number] ED Prov Noteon 11-22-2024 ED Prov Note HPI: 11/22/2024, Time: @NOWNR@ Km Strange is a 29 y.o. female presenting to the ED for rash and hives and slight sense of swelling of the throat and facial swelling, beginning 6 days ago. The complaint has been constant, moderate in severity, and worsened by nothing. States she tried some new herbs last week prior to onset of symptoms. No fever or chills and no difficulty breathing at this time or swallowing. Some relief with Benadryl taken yesterday and only took 12-1/2 mg ROS: Pertinent positives and negatives are stated within HPI, all other systems reviewed and are negative. PAST HISTORY Past Medical History: @[facility]@ Past Surgical History: has a past surgical history that includes CT Colonoscopy (08/14/2022). Social History: reports that she has never smoked. She has never used smokeless tobacco. She reports that she does not currently use alcohol. She reports that she does not use drugs. Family History: family history is not on file. The patient's home medications have been reviewed. Allergies: Sulfa (sulfonamide antibiotics) -- RESULTS - All laboratory and radiology results have been personally reviewed by myself LABS: No results found for this or any previous visit. RADIOLOGY: Interpreted by Radiologist. No orders to display - NURSING NOTES AND VITALS REVIEWED --- The nursing notes within the ED encounter and vital signs as below have been reviewed. BP (!) 121/104 (BP Location: Left arm, Patient Position: Sitting) Pulse 94 Temp 98.3 degrees F (36.8 degrees C) (Temporal) Resp 18 Ht 5' Wt 53.5 kg (118 lb) SpO2 98% BMI 23.05 kg/m Oxygen Saturation Interpretation: Normal ---PHYSICAL EXAM Constitutional/General: Alert and oriented x3, well appearing, no obvious respiratory distress or conversational dyspnea and skin pink warm and dry Head: NC/AT Eyes: PERRL, EOMI Mouth: Oropharynx clear, handling secretions, no trismus Neck: Supple, full ROM, no meningeal signs Pulmonary: Lungs clear to auscultation bilaterally, no wheezes, rales, or rhonchi. Not in respiratory distress Cardiovascular: Regular rate and rhythm, no murmurs, gallops, or rubs. 2+ distal pulses Abdomen: Soft, non tender, non distended, Extremities: Moves all extremities x 4. Warm and well perfused Skin: warm and dry slight facial swelling of the cheeks with slight red discoloration Neurologic: GCS 15, Psych: Normal Affect ------ ED COURSE/MEDICAL DECISION MAKING ---- Medications predniSONE (DELTASONE) tablet 60 mg (has no administration in time range) diphenhydrAMINE (BENADRYL) tablet 25 mg (has no administration in time range) famotidine (PEPCID) tablet 20 mg (has no administration in time range) Medical Decision Making: Will treat with allergy cocktail Counseling: The emergency provider has spoken with the patient and discussed today's results, in addition to providing specific details for the plan of care and counseling regarding the diagnosis and prognosis. Questions are answered at this time and they are agreeable with the plan. --------- IMPRESSION AND DISPOSITION --------- IMPRESSION 1. Allergic reaction, initial encounter DISPOSITION Disposition: discharged to home Patient condition is stable Summation Patient Course: Improved ED Medications administered this visit: Medications predniSONE (DELTASONE) tablet 60 mg (has no administration in time range) diphenhydrAMINE (BENADRYL) tablet 25 mg (has no administration in time range) famotidine (PEPCID) tablet 20 mg (has no administration in time range) New Prescriptions from this visit: New Prescriptions diphenhydrAMINE (BENADRYL) 25 mg capsule Take 1 (one) capsule (25 mg total) by mouth every 6 (six) hours as needed for itching . predniSONE (DELTASONE) 50 MG tablet Take 1 (one) tablet (50 mg total) by mouth daily for 5 days . famotidine (PEPCID) 20 MG tablet Take 1 (one) tablet (20 mg total) by mouth 2 (two) times a day . fluconazole (DIFLUCAN) 150 MG tablet Take 1 (one) tablet (150 mg total) by mouth once for 1 dose . Follow-up: Ayaka Doss, BOX TOE CEMENTER [address] [facility] Physician [place] [address] In 2 days Final Impression: 1. Allergic reaction, initial encounter (Please note that portions of this note were completed with a voice recognition program. Efforts were made to edit the dictations but occasionally words are mis-transcribed.) Ryan Guerra MD 11/22/24 1214 AUTHENTICATED BY KEAGAN CROCKETT 11/22/2024 12:14:40 Normal [facility] POC , URINE - RALSo n 11-22-2024 Beta HCG ( test) Ql (U) Negative Normal Negative [facility] Comment on above: Order Comment: Negat ernie: Dilute urine specimens, as indicated by a low specific gravity (<1.010) may not contain representitive levels of hCG. If is still suspected, a serum test or repeat urine test using a first morning urine specimen should be considered. POC URINALYSIS DIPSTICK,AUTO - RALSon 11-22-2024 POC BILIRUBIN, URINE Negative Normal Negative [facility] POC BLOOD, URINE Negative Normal Negative [facility] POC GLUCOSE, URINE Negative Normal Negative [facility] POC KETONES, URINE Negative Normal Negative [facility] POC LEUKOCYTE ESTERASE, URINE Negative Normal Negative [facility] POC NITRITE, URINE Negative Normal Negative [facility] POC PH, URINE 6.0 Normal 5.0-7.0 [facility] POC PROTEIN, URINE Negative Normal Negative [facility] POC SPECIFIC GRAVITY 1.010 Normal 1.005-1.025 [facility] POC UROBILINOGEN 0.2 mg/dL Normal < 2.0 [facility] Abdomen/Pelvis without Conto n 11-05-2024 Abdomen/Pelvis without Cont [facility] Imaging Services [address], [place] [id number] Abdomen/Pelvis without Cont MR#: [id number] Acct: [id number] Name: KM STRANGE Rep #: [id number] : 1995 F 29 From: Vic Dykes DO PCP: CARLA Plascencia Status: REG ER Study: Abdomen/Pelvis without Cont Date of Exam: 01/24 Exam# [id number] Ordering Dr: Daniel Schneider DO PROCEDURE: ABDOMEN/PELVIS WITHOUT CONT 11/05/2024 REASON FOR EXAM: LOWER ABDOMINAL PAIN, FLANK PAIN RULE OUT KIDNEY TECHNIQUE: Abdomen and pelvis CT without intravenous contrast. Noncontrast technique limits evaluation of the abdominal and pelvic viscera. Coronal and Sagittal reconstruction series were provided. One or more dose reduction techniques were used (e.g., Automated exposure control, adjustment of the mA and/or kV according to patient size, use of iterative reconstruction technique). PATIENT PREPARATION: Per protocol ORAL CONTRAST TYPE: None. AMOUNT: mL COMPARISON: None FINDINGS: Lung bases: Unremarkable Liver: Normal size. No obvious mass. Gallbladder: Unremarkable Spleen: Normal size. Pancreas: Normal size. No surrounding inflammation. Adrenals: Unremarkable Kidneys: No urolithiasis. No hydronephrosis. Bladder: Unremarkable Reproductive Organs: Normal uterine size and contour. Ovaries are unremarkable. Bowel: Unremarkable Appendix: Status post appendectomy. Lymph nodes: Unremarkable. Vasculature: The abdominal aorta and IVC contours are normal. Noncontrast technique limits evaluation. Peritoneum / Retroperitoneum: No free fluid or free air. Bones: Unremarkable CT/Abdomen/Pelvis without Cont IMPRESSION: NO UROLITHIASIS OR HYDRONEPHROSIS. NO ACUTE FINDINGS. Reading Location: [facility] CC: CARLA Doss; Dr. Daniel Schneider DO Wind Turbine Mechanical Engineer: Signed Normal [facility] Absolute lymphocyte countOrd ered By: Daniel Schneider on 11-05-2024 Lymphocytes Auto (Unsp spec) [#/Vol] 1.08 10*3/uL 0.83-4.51 [facility] Absolute neutrophil countOrd ered By: Daniel Schneider on 11-05-2024 Neutrophils (Bld) [#/Vol] 1.8 10*3/uL Low 2.0-7.7 [facility] Anion gap in Serum or Plasma Ordered By: Daniel Schneider on 11-05-2024 Anion gap [Moles/Vol] 11 mmol/L 5-15 [facility] Automated lymphocyte count a s percentage of total leukocytesOrdered By: Daniel Schneider on 11-05-2024 Lymphocytes/100 WBC Auto (Unsp spec) 32.5 % 19-41 [facility] BUN/creatinine ratioOrdered By: Daniel Schneider on 11-05-2024 Urea nitrogen/Creatinine [Mass ratio] 16.4 mg/mg 10-20 [facility] Basophil percentageOrdered B y: Daniel Schneider on 11-05-2024 Basophils/100 WBC (Bld) 0.0 % 0-1 [facility] Bilirubin Test strip Ql (U)O rdered By: Daniel Schneider on 11-05-2024 Bilirubin Ql (U) Negative Negative [facility] Bilirubin, totalOrdered By: Daniel Schneider on 11-05-2024 Bilirubin [Mass/Vol] 0.27 mg/dL 0.00-1.30 [facility] CBC W/Diff, Automatedon Absolute Lymph 1.08 X10 3/uL Normal 0.83-4.51 [facility] Comment on above: Performed By: #### L 501.2450, L100.0100, L500.4050 ####[facility] [address] [place], [address] Absolute Neut 1.8 X10 3/uL Low 2.0-7.7 [facility] Comment on above: Performed By: #### L 501.2450, L100.0100, L500.4050 ####[facility] [address] [place], [address] Basophils/100 WBC (Bld) 0.0 % Normal 0-1 [facility] Comment on above: Performed By: #### L 501.2450, L100.0100, L500.4050 ####[facility] [address] [place], [address] Eosinophils/100 WBC (Bld) 1.8 % Normal 0-5 [facility] Comment on above: Performed By: #### L 501.2450, L100.0100, L500.4050 ####[facility] [address] [place], [address] Erythrocyte distribution width (RBC) [Ratio] 11.9 % Normal 11.6-14.6 [facility] Comment on above: Performed By: #### L 501.2450, L100.0100, L500.4050 ####[facility] [address] [place], [address] Hematocrit (Bld) [Volume fraction] 38.3 % Normal 37-47 [facility] Comment on above: Performed By: #### L 501.2450, L100.0100, L500.4050 ####[facility] [address] [place], [address] Hemoglobin (Bld) [Mass/Vol] 13.8 g/dL Normal 12.0-15.0 [facility] Comment on above: Performed By: #### L 501.2450, L100.0100, L500.4050 ####[facility] [address] [place], [address] IG% 0.600 Normal 0.0-0.9 [facility] Comment on above: Result Comment: IG% - Immature Granulocytes (promyelocytes, myelocytes and metamyelocytes) > 1% indicates that a LEFT SHIFT is Present. Performed By: #### L 501.2450, L100.0100, L500.4050 ####[facility] [address] [place], [address] Lymphocytes/100 WBC (Bld) 32.5 % Normal 19-41 [facility] Comment on above: Performed By: #### L 501.2450, L100.0100, L500.4050 ####[facility] [address] [place], [address] MCH (RBC) [Entitic mass] 30.9 pg Normal 27.0-32.0 [facility] Comment on above: Performed By: #### L 501.2450, L100.0100, L500.4050 ####[facility] [address] [place], [address] MCHC (RBC) [Mass/Vol] 36.0 g/dL Normal 32-36 [facility] Comment on above: Performed By: #### L 501.2450, L100.0100, L500.4050 ####[facility] [address] [place], [address] MCV (RBC) [Entitic vol] 85.7 fL Normal 81-99 [facility] Comment on above: Performed By: #### L 501.2450, L100.0100, L500.4050 ####[facility] [address] [place], [address] Monocytes/100 WBC (Bld) 9.9 % Normal 0-10 [facility] Comment on above: Performed By: #### L 501.2450, L100.0100, L500.4050 ####[facility] [address] [place], [address] Neutrophils/100 WBC (Bld) 55.2 % Normal 47-70 [facility] Comment on above: Performed By: #### L 501.2450, L100.0100, L500.4050 ####[facility] [address] [place], [address] Nucleated RBC (Bld) [#/Vol] 0 10*3/uL Normal 0-5 [facility] Comment on above: Performed By: #### L 501.2450, L100.0100, L500.4050 ####[facility] [address] [place], [address] Platelet mean volume (Bld) [Entitic vol] 10.4 fL Normal 6.2-12.0 [facility] Comment on above: Performed By: #### L 501.2450, L100.0100, L500.4050 ####[facility] [address] [place], [address] Platelets (Bld) [#/Vol] 160 10*3/uL Normal 150-450 [facility] Comment on above: Performed By: #### L 501.2450, L100.0100, L500.4050 ####[facility] [address] [place], [address] RBC (Bld) [#/Vol] 4.47 10*6/uL Normal 4.2-5.4 [facility] Comment on above: Performed By: #### L 501.2450, L100.0100, L500.4050 ####[facility] [address] [place], [address] RDW SD 36.7 fl Normal 35.1-43.9 [facility] Comment on above: Performed By: #### L 501.2450, L100.0100, L500.4050 ####[facility] [address] [place], [address] WBC (Bld) [#/Vol] 3.3 10*3/uL Low 4.4-11.0 [facility] Comment on above: Performed By: #### L 501.2450, L100.0100, L500.4050 ####[facility] [address] [place], [address] Carbon dioxide, total [Moles /volume] in Central venous bloodOrdered By: Daniel Schneider on 11-05-2024 CO2 [Moles/Vol] 22.1 mmol/L 21.0-32.0 [facility] Chloride assayOrdered By: Swetha Schneider on 11-05-2024 Chloride [Moles/Vol] 104 mmol/L 98-108 [facility] Comprehensive Metabolic Prof ilon 11-05-2024 Albumin [Mass/Vol] 4.3 g/dL Normal 3.5-5.0 [facility] Comment on above: Performed By: #### L 501.2450, L100.0100, L500.4050 ####[facility] [address] [place], [address] Albumin/Globulin [Mass ratio] 1.8 {ratio} Normal 0.9-2.4 [facility] Comment on above: Performed By: #### L 501.2450, L100.0100, L500.4050 ####[facility] [address] [place], [address] ALK PHOS 59 U/L Normal 35-104 [facility] Comment on above: Performed By: #### L 501.2450, L100.0100, L500.4050 ####[facility] [address] [place], [address] ALT [Catalytic activity/Vol] 15 U/L Normal <=34 [facility] Comment on above: Performed By: #### L 501.2450, L100.0100, L500.4050 ####[facility] [address] [place], [address] AST [Catalytic activity/Vol] 20 U/L Normal <=31 [facility] Comment on above: Performed By: #### L 501.2450, L100.0100, L500.4050 ####[facility] [address] [place], [address] Bilirubin [Mass/Vol] 0.27 mg/dL Normal 0.00-1.30 [facility] Comment on above: Performed By: #### L 501.2450, L100.0100, L500.4050 ####[facility] [address] [place], [address] BUN/CRE 16.4 RATIO Normal 10-20 [facility] Comment on above: Performed By: #### L 501.2450, L100.0100, L500.4050 ####[facility] [address] [place], [address] Calcium [Mass/Vol] 9.0 mg/dL Normal 7.6-11.0 [facility] Comment on above: Performed By: #### L 501.2450, L100.0100, L500.4050 ####[facility] [address] [place], [address] Chloride [Moles/Vol] 104 mmol/L Normal 98-108 [facility] Comment on above: Performed By: #### L 501.2450, L100.0100, L500.4050 ####[facility] [address] [place], [address] CO2 [Moles/Vol] 22.1 mmol/L Normal 21.0-32.0 [facility] Comment on above: Performed By: #### L 501.2450, L100.0100, L500.4050 ####[facility] [address] [place], [address] Creatinine [Mass/Vol] 0.68 mg/dL Low 0.70-1.20 [facility] Comment on above: Performed By: #### L 501.2450, L100.0100, L500.4050 ####[facility] [address] [place], [address] ECRCL 97.03 ml/min Normal 50-250 [facility] Comment on above: Performed By: #### L 501.2450, L100.0100, L500.4050 ####[facility] [address] [place], [address] GAP 11 Normal 5-15 [facility] Comment on above: Performed By: #### L 501.2450, L100.0100, L500.4050 ####[facility] [address] [place], [address] GFR/1.73 sq M.predicted among non-blacks MDRD (S/P/Bld) [Vol rate/Area] 122 mL/min/{1.73_m2} Normal >60 [facility] Comment on above: Result Comment: mL/m in/1.73m2 CKD-EPI Creatinine Equation (2020) Performed By: #### L 501.2450, L100.0100, L500.4050 ####[facility] [address] [place], [address] Globulin (S) [Mass/Vol] 2.4 g/dL Normal 2.2-4.2 [facility] Comment on above: Performed By: #### L 501.2450, L100.0100, L500.4050 ####[facility] [address] [place], [address] Glucose [Mass/Vol] 80 mg/dL Normal 70-99 [facility] Comment on above: Performed By: #### L 501.2450, L100.0100, L500.4050 ####[facility] [address] [place], [address] Potassium [Moles/Vol] 3.6 mmol/L Normal 3.3-5.1 [facility] Comment on above: Performed By: #### L 501.2450, L100.0100, L500.4050 ####[facility] [address] [place], [address] Sodium [Moles/Vol] 138 mmol/L Normal 133-145 [facility] Comment on above: Performed By: #### L 501.2450, L100.0100, L500.4050 ####[facility] [address] [place], [address] T PROT 6.7 g/dL Normal 5.9-8.4 [facility] Comment on above: Performed By: #### L 501.2450, L100.0100, L500.4050 ####[facility] [address] [place], [address] Urea nitrogen [Mass/Vol] 11 mg/dL Normal 4-19 [facility] Comment on above: Performed By: #### L 501.2450, L100.0100, L500.4050 ####[facility] [address] [place], [address] Emergency Department Summary on 11-05-2024 Emergency Department Summary [facility] Medical Records Department [address] [place] [address] Emergency Department Summary 11/05/24 MR#: [id number] Acct: [id number] Name: KM STRANGE Rep #: [id number] : 1995 29 From: Daniel Schneider DO PCP: CRALA Plascencia Status:REG ER Location: ED HPI History of Present Illness Chief Complaint: Abd Pain PFSH PFSH Home Medications ???Medication ???Instructions ???Recorded ???Last Taken ???Type fluticasone furoate 100 1 inh inhalation DAILY PRN 3 Unknown History mcg-vilanterol 25 mcg/dose inhalation powder (Breo Ellipta) mirtazapine 15 mg tablet 15 mg PO DAILY 02/18/23 Unknown Hi story montelukast 10 mg tablet 10 mg PO DAILY 02/18/23 Unknown Hi story (Singulair) pantoprazole 40 mg tablet,delayed 40 mg PO DAILY 02/18/23 Unknown H istory release Allergy/AdvReac Type Severity Reaction Status Date / Time Sulfa (Sulfonamide Allergy Intermediate Hives Verified 11/05/24 15:20 Antibiotics) Family History Mother Cancer pancreatic/cervical Diabetes Hypertension Father Hypertension Surgical History S/P laparoscopic procedure History of appendectomy Social History Smoking Status: Never smoker alcohol intake: current alcohol intake frequency: holidays/special occasions only substance use type: does not use EXAM Physical Exam Const Vital Signs: 11/05/24 15:17 11/05/24 17:28 Temperature 97.4 F L Temperature Source Oral Pulse Rate 98 91 Respiratory Rate 18 16 Blood Pressure 108/81 H 107/71 Blood Pressure Mean 90 83 Pulse Ox 98 100 Oxygen Delivery Method Room Air Room Air [facility] MDM MDM Narrative Medical decision making narrative: HISTORY OF PRESENT ILLNESS: Chief complaint: Abdominal pain 29-year-old female history of endometriosis presents with abdominal pain and increased urinary frequency. Notes pain radiates to back. Notes is similar to prior flares of endometriosis. Denies history of kidney stones. Denies vaginal bleeding or discharge. Denies constipation or diarrhea. Notes history of multiple abdominal surgeries REVIEW OF SYSTEMS: Pertinent positives: abdominal pain Pertinent negatives: Vomiting PHYSICAL EXAM: Nursing triage notes reviewed, Vital signs reviewed Constitutional: please see mdm HENT: MMM Eyes: Pupils equal round and reactive to light, Extraocular muscles intact Neck: No stridor, no JVD, full neck ROM Lungs: Clear to auscultation, No wheezing or rales. No increased work of breathing, no conversational dyspnea, no accessory muscle use, no nasal flaring. No respiratory distress noted Heart: Regular rate and rhythm, No murmurs, No rubs and No gallops, 2+ distal pulses (radial, femoral, posterior tibial) in all extremities Abdomen: Soft, there is no tenderness, rigidity, rebound or guarding, no obvious peritoneal signs, no palpable pulsatile abdominal masses, no auscultated abdominal bruit : No CVAT Extremities: No edema Neuro: No new focal neurological deficits, cranial nerves II through XII intact, 5/5 strength in all present extremities. Intact sensation to light touch in all present extremities, 2+ reflexes bilateral patella tendons. Skin: No rash or lesions noted MEDICAL DECISION MAKING: Chief Complaint: please see HPI External records reviewed: Reviewed prior imaging studies Factors affecting care: Endometriosis, anxiety, depression, asthma, gallbladder sludge Social determinants of health: none History obtained from others: family Consults: none [facility] Narrative: Patient was hemodynamically stable, afebrile nontoxic-appearing. Abdominal Exam overall benign I considered the following differential diagnosis: AAA, small bowel obstruction, abdominal perforation, appendicitis, pancreatitis, hepatobiliary pathology (acute cholecystitis), mesenteric i schemia, pathology (ie nephrolithiasis, pyelonephritis). I obtained labs images to further assess any sign of a life-threatening etiology. I initially resuscitated the patient while he normal saline, 4 mg IV Zofran, oral Tylenol and 15 mg of IV Toradol. ALL IMAGES (IF OBTAINED) HAVE BEEN PERSONALLY REVIEWED AND INTERPRETED BY MYSELF. CBC with no leukocytosis to suggest systemic inflammation, no anemia thrombocytopenia CMP without evidence of acute kidney injury, significant electrolyte abnormality, anion gap to suggest end organ hypo-perfusion, no evidence of metabolic acidosis with a normal bicarbonate, no evidence of hepatobiliary obstructive pathology. Lipase is wnl indicating no pancreatic inflammation. Urinalysis shows no evidence of urinary inflammation suggestive of UTI Urine pregn (more content not included)... Normal [facility] Eosinophil percentageOrdered By: Daniel Schneider on 11-05-2024 Eosinophils/100 WBC (Bld) 1.8 % 0-5 [facility] Epithelial cells.squamous LM Ql (Urine sed)Ordered By: Daniel Schneider on 11-05-2024 Epithelial cells.squamous LM.HPF (Urine sed) [#/Area] 0 /[HPF] 5-10 [facility] Erythrocyte distribution wid th (RBC) [Ratio]Ordered By: Daniel Schneider on 11-05-2024 Erythrocyte distribution width (RBC) [Entitic vol] 36.7 fL 35.1-43.9 [facility] Erythrocyte distribution wid th ratioOrdered By: Daniel Schneider on 11-05-2024 Erythrocyte distribution width (RBC) [Ratio] 11.9 % 11.6-14.6 [facility] Erythrocyte distribution wid th standard deviationOrdered By: Daniel Schneider on 11-05-2024 Erythrocyte distribution width (RBC) [Ratio] 36.7 fl 35.1-43.9 [facility] Estimation of creatinine byron aranceOrdered By: Daniel Schneider on 11-05-2024 Estimated Creatinine Clearance Calc 97.03 ml/min 50-250 [facility] GFR/1.73 sq M.predicted ricardo g non-blacks MDRD (S/P/Bld) [Vol rate/Area]Ordered By: Daniel Schneider on 11-05-2024 Estimated GFR (MDRD) Non-Af Amer 122 >60 [facility] Comment on above: mL/min/1.73m2 CKD-EP I Creatinine Equation (2020) Glomerular filtration rate ( GFR) estimation/1.73 sq m using serum, plasma, or whole bOrdered By: Daniel Schneider on 11-05-2024 GFR/1.73 sq M.predicted among non-blacks MDRD (S/P/Bld) [Vol rate/Area] 122 mL/min/{1.73_m2} >60 [facility] Comment on above: mL/min/1.73m2 CKD-EP I Creatinine Equation (2020) Glucose Ql (U)Ordered By: christ Schneider on 11-05-2024 Urine Glucose (UA) Normal mg/dl Normal [facility] Hematocrit Auto (Bld) [Volum e fraction]Ordered By: Daniel Schneider on 11-05-2024 Hematocrit (Bld) [Volume fraction] 38.3 % 37-47 [facility] Hemoglobin measurementOrdere d By: Daniel Schneider on 11-05-2024 Hemoglobin (Bld) [Mass/Vol] 13.8 g/dL 12.0-15.0 [facility] Immature granulocytes/100 WB C Auto (Bld)Ordered By: Daniel Schneider on 11-05-2024 Immature granulocytes/100 WBC (Bld) 0.600 % 0.0-0.9 [facility] Comment on above: IG% - Immature Granu locytes (promyelocytes, myelocytes and metamyelocytes) > 1% indicates that a LEFT SHIFT is Present. Ketones Test strip Ql (U)Ord ered By: Daniel Schneider on 11-05-2024 Ketones Ql (U) Negative Negative [facility] Laboratory - Chemistry and C hemistry - challengeOrdered By: Daniel Schneider on 11-05-2024 AST [Catalytic activity/Vol] 20 U/L <32 [facility] Lipaseon 11-05-2024 Lipase [Catalytic activity/Vol] 31 U/L Normal 13-75 [facility] Comment on above: Result Comment: Damián mitchell note: LIPASE revised reference range effective 22. New Lipase methodology. Expected to produce lower values than the previous assay method. NEW Reference Range: 13 - 75 U/L Performed By: #### L 501.2450, L100.0100, L500.4050 ####[facility] [address] [place], [address] Lipase measurementOrdered By : Daniel Schneider on 11-05-2024 Lipase [Catalytic activity/Vol] 31 U/L 13-75 [facility] Comment on above: Please note:LIPASE r evised reference range effective 22. New Lipase methodology. Expected to produce lower values than the previous assay method. NEW Reference Range: 13 - 75 U/L Lymphocytes Auto (Unsp spec) [#/Vol]Ordered By: Daniel Schneider on 11-05-2024 Lymphocytes (Bld) [#/Vol] 1.08 10*3/uL 0.83-4.51 [facility] Lymphocytes/100 WBC Auto (Un sp spec)Ordered By: Daniel Schneider on 11-05-2024 Lymphocytes/100 WBC (Bld) 32.5 % 19-41 [facility] MCV (mean corpuscular volume ) determinationOrdered By: Daniel Schneider on 11-05-2024 MCV (RBC) [Entitic vol] 85.7 fL 81-99 [facility] Mean corpuscular hemoglobin (MCH) determinationOrdered By: Daniel Schneider on 11-05-2024 MCH (RBC) [Entitic mass] 30.9 pg 27.0-32.0 [facility] Mean corpuscular hemoglobin concentration (MCHC) determinationOrdered By: Daniel Schneider on 11-05-2024 MCHC (RBC) [Mass/Vol] 36.0 g/dL 32-36 [facility] Mean platelet volume determi nationOrdered By: Daniel Schneider on 11-05-2024 Platelet mean volume (Bld) [Entitic vol] 10.4 fL 6.2-12.0 [facility] Microscopic analysis of urin e for red blood cells (RBC)Ordered By: Daniel Schneider on 11-05-2024 Microscopic analysis of urine for red blood cells (RBC) 0 SEEN /hpf 0-5 [facility] Urine RBC 0 SEEN /hpf 0-5 [facility] Monocyte percentageOrdered B y: Daniel Schneider on 11-05-2024 Monocytes/100 WBC (Bld) 9.9 % 0-10 [facility] Mucus LM Ql (Urine sed)Order ed By: Daniel Schneider on 11-05-2024 Mucus Ql (Urine sed) 0 SEEN /hpf [facility] Neutrophil percentageOrdered By: Daniel Schneider on 11-05-2024 Neutrophils/100 WBC (Bld) 55.2 % 47-70 [facility] Nitrite Test strip Ql (U)Ord ered By: Daniel Schneider on 11-05-2024 Nitrite Ql (U) Negative Negative [facility] Nucleated red blood cell per centageOrdered By: Daniel Schneider on 11-05-2024 Nucleated RBC/100 WBC (Bld) [Ratio] 0 % 0-5 [facility] Platelet countOrdered By: Swetha Schneider on 11-05-2024 Platelets (Bld) [#/Vol] 160 10*3/uL 150-450 [facility] Potassium (Unsp spec) [Mass/ Vol]Ordered By: Daniel Schneider on 11-05-2024 Potassium [Moles/Vol] 3.6 mmol/L 3.3-5.1 [facility] Potassium measurement (mass/ volume)Ordered By: Daniel Schneider on 11-05-2024 Potassium (Unsp spec) [Mass/Vol] 3.6 mmol/L 3.3-5.1 [facility] ,Urineon 11-05-2024 Beta HCG ( test) Ql (U) Negative Normal [facility] Comment on above: Result Comment: Very dilute urine specimens, as indicated by a low specific gravity, may not contain sales representative printing levels of hCG. If is still suspected, a first morning urine specimen should be collected 48 hours later and tested. Performed By: #### L 400.0001, L400.7600 #### [facility] [address] [place], [place], [id number] Protein Test strip Ql (U)Ord ered By: Daniel Schneider on 11-05-2024 Protein Ql (U) Negative Negative [facility] RBC Auto (Bld) [#/Vol]Ordere d By: Daniel Schneider on 11-05-2024 RBC (Bld) [#/Vol] 4.47 10*6/uL 4.2-5.4 [facility] Serum creatinine measurement (mass/volume)Ordered By: Daniel Schneider on 11-05-2024 Creatinine [Mass/Vol] 0.68 mg/dL Low 0.70-1.20 [facility] Serum globulin measurementOr dered By: Daniel Schneider on 11-05-2024 Globulin (S) [Mass/Vol] 2.4 g/dL 2.2-4.2 [facility] Serum glucose measurement (m ass/volume)Ordered By: Daniel Schneider on 11-05-2024 Glucose [Mass/Vol] 80 mg/dL 70-99 [facility] Serum or plasma alanine phoenix otransferase (ALT) measurementOrdered By: Daniel Schneider on 11-05-2024 ALT [Catalytic activity/Vol] 15 U/L <35 [facility] Serum or plasma albumin saulo urement (mass/volume)Ordered By: Daniel Schneider on 11-05-2024 Albumin [Mass/Vol] 4.3 g/dL 3.5-5.0 [facility] Serum or plasma albumin/glob ulin mass ratioOrdered By: Daniel Schneider on 11-05-2024 Albumin/Globulin [Mass ratio] 1.8 {ratio} 0.9-2.4 [facility] Serum or plasma alkaline diego sphatase measurementOrdered By: Daniel Schneider on 11-05-2024 ALP [Catalytic activity/Vol] 59 U/L 35-104 [facility] Serum or plasma calcium saulo urement (mass/volume)Ordered By: Daniel Schneider on 11-05-2024 Calcium [Mass/Vol] 9.0 mg/dL 7.6-11.0 [facility] Serum or plasma urea nitroge n measurement (mass/volume)Ordered By: Daniel Schneider on 11-05-2024 Urea nitrogen [Mass/Vol] 11 mg/dL 4-19 [facility] Sodium levelOrdered By: Pat Schneider on 11-05-2024 Sodium [Moles/Vol] 138 mmol/L 133-145 [facility] Squamous epithelial cells de tection in urine sediment by light microscopyOrdered By: Daniel Schneider on 11-05-2024 Epithelial cells.squamous LM Ql (Urine sed) 0 SEEN /hpf 12-09 [facility] Total proteinOrdered By: Claudia Schneider on 11-05-2024 Protein [Mass/Vol] 6.7 g/dL 5.9-8.4 [facility] Urinalysis, Completeon 11-05 BACTERIA 0 SEEN Normal None Seen [facility] Comment on above: Order Comment: CLEAN CATCH Performed By: #### L 400.0001, L400.7600 #### [facility] [address] [place], [address] EPI,SQUAMOUS 0 SEEN Normal 12-09 [facility] Comment on above: Order Comment: CLEAN CATCH Performed By: #### L 400.0001, L400.7600 #### [facility] [address] [place], [address] Mucus Ql (Urine sed) 0 SEEN Normal [facility] Comment on above: Order Comment: CLEAN CATCH Performed By: #### L 400.0001, L400.7600 #### [facility] [address] [place], [address] RBC 0 SEEN Normal 0-5 [facility] Comment on above: Order Comment: CLEAN CATCH Performed By: #### L 400.0001, L400.7600 #### [facility] [address] [place], [address] WBC 0 SEEN Normal 0-5 [facility] Comment on above: Order Comment: CLEAN CATCH Performed By: #### L 400.0001, L400.7600 #### [facility] [address] [place], [address] Urine blood detectionOrdered By: Daniel Schneider on 11-05-2024 Urine Occult Blood Negative Negative [facility] Urine clarityOrdered By: Claudia Schneider on 11-05-2024 Clarity (U) Clear Clear [facility] Urine color determinationOrd ered By: Daniel Schneider on 11-05-2024 Color (U) Yellow Yellow [facility] Urine glucose detectionOrder ed By: Daniel Schneider on 11-05-2024 Glucose Ql (U) Normal mg/dl Normal [facility] Urine leukocyte esterase det ection by dipstickOrdered By: Daniel Schneider on 11-05-2024 Leukocyte esterase Test strip Ql (U) Negative Negative [facility] Urine pHOrdered By: Daniel coyle on 11-05-2024 pH (U) 7.0 [pH] 5.0 - 8.0 [facility] Urine testOrdered By: Daniel Schneider on 11-05-2024 HCG ( test) Ql (U) Negative [facility] Comment on above: Very dilute urine sp ecimens, as indicated by a low specificgravity, may not contain sales representative printing levels of hCG. If is still suspected, a first morning urinespecimen should be collected 48 hours later and tested. Urine sediment bacteria coun t by microscopy (number/high power field)Ordered By: Daniel Schneider on 11-05-2024 Bacteria LM.HPF (Urine sed) [#/Area] 0 /[HPF] None Seen [facility] Urine specific gravity measu rementOrdered By: Daniel Schneider on 11-05-2024 Specific gravity (U) [Rel density] 1.010 1.002-1.030 [facility] Urine urobilinogen measureme ntOrdered By: Daniel Schneider on 11-05-2024 Urobilinogen Ql (U) Normal mg/dl Normal [facility] Urobilinogen Ql (U)Ordered B y: Daniel Schneider on 11-05-2024 Urine Urobilinogen Normal mg/dl Normal [facility] White blood cell (WBC) count Ordered By: Daniel Schneider on 11-05-2024 WBC (Bld) [#/Vol] 3.3 10*3/uL Low 4.4-11.0 [facility] White blood cell countOrdere d By: Daniel Schneider on 11-05-2024 Urine WBC 0 SEEN /hpf 0-5 [facility] White blood cell count 0 SEEN /hpf 0-5 [facility] XR CHEST 2 VIEWSon XR CHEST 2 VIEWS Interpreted By: Hood Melendez, STUDY: XR CHEST 2 VIEWS; 09/22/2024 3:55 pm INDICATION: Signs/Symptoms:rule out pneumonia. ,J40 Bronchitis, not specified as acute or chronic COMPARISON: 06/29/2013 ACCESSION NUMBER(S): [id number] ORDERING CLINICIAN: AYAKA DOSS FINDINGS: CARDIOMEDIASTINAL SILHOUETTE: Cardiomediastinal silhouette is normal in size and configuration. LUNGS: Lungs are clear. ABDOMEN: No remarkable upper abdominal findings. BONES: No acute osseous changes. IMPRESSION: 1. No evidence of acute cardiopulmonary process. MACRO: None Signed by: Hood Carmen 09/23/2024 8:00 AM Dictation workstation: [id number] [facility] CBC (INCLUDES DIFF/PLT)on Basophils (Bld) [#/Vol] 0.022 10*3/uL Normal 0-200 [facility] Comment on above: Performed By: #### 6 399, [id number], [id number] #### [facility] [address], [address] [place] [address] [employer] Test Engineer: Jean Pierre Whitehead MD Basophils/100 WBC (Bld) 0.3 % Normal [facility] Comment on above: Performed By: #### 6 399, , [id number] #### [facility] of [address], [address] [place] [address] Ceramics Test Engineer: Jean Pierre Whitehead MD Eosinophils (Bld) [#/Vol] 0.058 10*3/uL Normal 15-500 [facility] Comment on above: Performed By: #### 6 399, , 03974 #### [facility] [place] [address] Ceramics Test Engineer: Jean Pierre Whitehead MD Eosinophils/100 WBC (Bld) 0.8 % Normal [facility] Comment on above: Performed By: #### 6 399, , 38557 #### [facility] [place] [address] Ceramics Test Engineer: Jean Pierre Whitehead MD Erythrocyte distribution width (RBC) [Ratio] 11.9 % Normal 11.0-15.0 [facility] Comment on above: Performed By: #### 6 399, , 41876 #### [facility] [place] [address] Ceramics Test Engineer: Jean Pierre Whitehead MD Hematocrit (Bld) [Volume fraction] 40.9 % Normal 35.0-45.0 [facility] Comment on above: Performed By: #### 6 399, , 55975 #### [facility] [place] [address] Ceramics Test Engineer: Jean Pierre Whitehead MD Hemoglobin (Bld) [Mass/Vol] 13.7 g/dL Normal 11.7-15.5 [facility] Comment on above: Performed By: #### 6 399, , 41728 #### [facility] [place] [address] Ceramics Test Engineer: Jean Pierre Whitehead MD Lymphocytes (Bld) [#/Vol] 1.145 10*3/uL Normal 850-3900 [facility] Comment on above: Performed By: #### 6 399, , 24857 #### [facility] [place] [address] Ceramics Test Engineer: Jean Pierre Whitehead MD Lymphocytes/100 WBC (Bld) 15.9 % Normal [facility] Comment on above: Performed By: #### 6 399, , 49273 #### [facility] [place] [address] Ceramics Test Engineer: Jean Pierre Whitehead MD MCH (RBC) [Entitic mass] 30.8 pg Normal 27.0-33.0 [facility] Comment on above: Performed By: #### 6 399, , 92152 #### [facility] [place] [address] Ceramics Test Engineer: Jean Pierre Whitehead MD MCHC (RBC) [Mass/Vol] 33.5 g/dL Normal 32.0-36.[address] [facility] Comment on above: Result Comment: For adults, a slight decrease in the calculated MCHC value (in the range of 30 to 32 g/dL) is most likely not clinically significant; however, it should be interpreted with caution in correlation with other red cell parameters and the patient's clinical condition. Performed By: #### 6 399, , 81910 #### [facility] [place] [address] Ceramics Test Engineer: Jean Pierre Whitehead MD MCV (RBC) [Entitic vol] 91.9 fL Normal 80.0-100.0 [facility] Comment on above: Performed By: #### 6 399, , 69148 #### [facility] [place] [address] Ceramics Test Engineer: Jean Pierre Whitehead MD Monocytes (Bld) [#/Vol] 0.374 10*3/uL Normal 200-950 [facility] Comment on above: Performed By: #### 6 399, , 12699 #### [facility] of [address], [address] [place] [address] Ceramics Test Engineer: Jean Pierre Whitehead MD Monocytes/100 WBC (Bld) 5.2 % Normal [facility] Comment on above: Performed By: #### 6 399, , 64800 #### [facility] of [address], [address] [place] [address] Ceramics Test Engineer: Jean Pierre Whitehead MD Neutrophils (Bld) [#/Vol] 5.602 10*3/uL Normal 3229-7810 [facility] Comment on above: Performed By: #### 6 399, , 24508 #### [facility] [place] [address] Ceramics Test Engineer: Jean Pierre Whitehead MD Neutrophils/100 WBC (Bld) 77.8 % Normal [facility] Comment on above: Performed By: #### 6 399, , 12898 #### [facility] of [address], [address] [place] [address] Ceramics Test Engineer: Jean Pierre Whitehead MD Platelet mean volume (Bld) [Entitic vol] 11.1 fL Normal 7.5-12.5 [facility] Comment on above: Performed By: #### 6 399, , 97450 #### [facility] [place] [address] Ceramics Test Engineer: Jean Pierre Whitehead MD Platelets (Bld) [#/Vol] 173 10*3/uL Normal 140-400 [facility] Comment on above: Performed By: #### 6 399, , 57269 #### [facility] of [address], [address] [place] [address] Ceramics Test Engineer: Jean Pierre Whitehead MD RBC (Bld) [#/Vol] 4.45 10*6/uL Normal 3.80-5.10 [facility] Comment on above: Performed By: #### 6 399, , 40614 #### [facility] [place] [address] [address] Ceramics Test Engineer: Jean Pierre Whitehead MD WBC (Bld) [#/Vol] 7.2 10*3/uL Normal 3.8-10.8 [facility] Comment on above: Performed By: #### 6 399, 32909, 05863 #### [facility] [place] [address] Ceramics Test Engineer: Jean Pierre Whitehead MD COMPREHENSIVE METABOLIC PANE L W/ANION GAPon 09-21-2024 Albumin [Mass/Vol] 4.7 g/dL Normal 3.6-5.1 [facility] Comment on above: Order Comment: FASTI NG:NO FASTING: NO Performed By: #### 6 399, 09863, 53366 #### [facility] [place] [address] Ceramics Test Engineer: Jean Pierre Whitehead MD ALP [Catalytic activity/Vol] 48 U/L Normal 31-125 [facility] Comment on above: Order Comment: FASTI NG:NO FASTING: NO Performed By: #### 6 399, 48761, 08315 #### [facility] [place] [address] Ceramics Test Engineer: Jean Pierre Whitehead MD ALT [Catalytic activity/Vol] 12 U/L Normal 6-29 [facility] Comment on above: Order Comment: FASTI NG:NO FASTING: NO Performed By: #### 6 399, 11128, 14284 #### [facility] [place] [address] Ceramics Test Engineer: Jean Pierre Whitehead MD AST [Catalytic activity/Vol] 15 U/L Normal 10-30 [facility] Comment on above: Order Comment: FASTI NG:NO FASTING: NO Performed By: #### 6 399, 23623, 76313 #### [facility] [place] [address] Ceramics Test Engineer: Jean Pierre Whitehead MD Bilirubin [Mass/Vol] 0.5 mg/dL Normal 0.2-1.2 [facility] Comment on above: Order Comment: FASTI NG:NO FASTING: NO Performed By: #### 6 399, , 73284 #### [facility] [place] [address] Ceramics Test Engineer: Jean Pierre Whitehead MD Calcium [Mass/Vol] 9.4 mg/dL Normal 8.6-10.2 [facility] Comment on above: Order Comment: FASTI NG:NO FASTING: NO Performed By: #### 6 399, , 40636 #### [facility] [address], [address] [place] [address] Ceramics Test Engineer: Jean Pierre Whitehead MD Chloride [Moles/Vol] 103 mmol/L Normal 98-110 [facility] Comment on above: Order Comment: FASTI NG:NO FASTING: NO Performed By: #### 6 399, , 73611 #### [facility] [place] [address] Ceramics Test Engineer: Jean Pierre Whitehead MD CO2 [Moles/Vol] 26 mmol/L Normal 20-32 [facility] Comment on above: Order Comment: FASTI NG:NO FASTING: NO Performed By: #### 6 399, , 63914 #### [facility] [place] [address] Ceramics Test Engineer: Jean Pierre Whitehead MD Creatinine [Mass/Vol] 0.61 mg/dL Normal 0.50-0.[address] [facility] Comment on above: Order Comment: FASTI NG:NO FASTING: NO Performed By: #### 6 399, , 32258 #### [facility] [place] [address] Ceramics Test Engineer: Jean Pierre Whitehead MD ELECTROLYTE BALANCE 8 mmol/L (calc) Normal 7-17 [facility] Comment on above: Order Comment: FASTI NG:NO FASTING: NO Performed By: #### 6 399, , 91893 #### [facility] [place] [address] Ceramics Test Engineer: Jean Pierre Whitehead MD GFR/1.73 sq M.predicted among non-blacks MDRD (S/P/Bld) [Vol rate/Area] 126 mL/min/{1.73_m2} Normal > OR = 60 [facility] Comment on above: Order Comment: FASTI NG:NO FASTING: NO Performed By: #### 6 399, , 26505 #### [facility] [place] [address] Ceramics Test Engineer: Jean iPerre Whitehead MD Glucose [Mass/Vol] 83 mg/dL Normal 65-139 [facility] Comment on above: Order Comment: FASTI NG:NO FASTING: NO Result Comment: Non-fasting reference interval Performed By: #### 6 399, , 25911 #### [facility] [place] [address] Ceramics Test Engineer: Jean Pierre Whitehead MD Potassium [Moles/Vol] 3.7 mmol/L Normal 3.5-5.3 [facility] Comment on above: Order Comment: FASTI NG:NO FASTING: NO Performed By: #### 6 399, , 60124 #### [facility] [place] [address] Ceramics Test Engineer: Jean Pierre Whitehead MD Protein [Mass/Vol] 6.9 g/dL Normal 6.1-8.1 [facility] Comment on above: Order Comment: FASTI NG:NO FASTING: NO Performed By: #### 6 399, , 77882 #### [facility] [place] [address] Ceramics Test Engineer: Jean Pierre Whitehead MD Sodium [Moles/Vol] 137 mmol/L Normal 135-146 [facility] Comment on above: Order Comment: FASTI NG:NO FASTING: NO Performed By: #### 6 399, , 11061 #### [facility] [place] [address] Ceramics Test Engineer: Jean Pierre Whitehead MD Urea nitrogen [Mass/Vol] 12 mg/dL Normal 7-25 [facility] Comment on above: Order Comment: FASTI NG:NO FASTING: NO Performed By: #### 6 399, 64671, 90095 #### [facility] [address], [address] [place] [address] Ceramics Test Engineer: Jean Pierre Whitehead MD HCG, TOTAL, QLon 09-21-2024 HCG, TOTAL, QL Negative Normal See Note: [facility] Comment on above: Result Comment: Refe rence Range: Reference Range Non-: Negative : Positive Performed By: #### 8 435 #### [facility] [address], [address] [place] [address] Ceramics Test Engineer: Jean Pierre Whitehead MD TSH W/REFLEX TO FT4on 2024 TSH W/REFLEX TO FT4 3.78 mIU/L Normal [facility] Comment on above: Result Comment: Refe rence Range > or = 20 Years 0.40-4.50 Ranges First trimester 0.26-2.66 Second trimester 0.55-2.73 Third trimester 0.43-2.91 Performed By: #### 6 399, 67970, 70920 #### [facility] [address], [address] [place] [address] Ceramics Test Engineer: Jean Pierre Whitehead MD POCT SARS-COV-2/FLU/RSV PCR SYMPTOMATIC manually resultedon 09-09-2024 FLUAV RNA SHANAE+probe Ql (Resp) Not detected Not Detected [facility] Work Phone: FLUBV RNA SHANAE+probe Ql (Resp) Not detected Not Detected [facility] Work Phone: Interpretation and review of laboratory results Normal [facility] Work Phone: RSV RNA SHANAE+probe Ql (Resp) Not detected Not Detected [facility] Work Phone: SARS-CoV-2 (COVID-19) RNA SHANAE+probe Ql (Resp) Not detected Not Detected [facility] Work Phone: [facility] Work Phone: US RENAL COMPLETEon 08-31-19 US RENAL COMPLETE Interpreted By: Gold Stephen, STUDY: US RENAL COMPLETE; 08/31/2024 8:17 am INDICATION: Signs/Symptoms:urgency, bilaeral flank pain. ,R39.9 Unspecified symptoms and signs involving the genitourinary system COMPARISON: None. ACCESSION NUMBER(S): [id number] ORDERING CLINICIAN: AYAKA DOSS TECHNIQUE: Multiple images of the kidneys were obtained . FINDINGS: RIGHT KIDNEY: The right kidney measures 8.2 cm in length. The renal cortical echogenicity and thickness are within normal limits. No hydronephrosis is present; no evidence of nephrolithiasis. LEFT KIDNEY: The left kidney measures 9.1 cm in length. The renal cortical echogenicity and thickness are within normal limits. No hydronephrosis is present; no evidence of nephrolithiasis. BLADDER: Decompressed with a prevoid volume 30 mL and postvoiding volume 4 mL. IMPRESSION: 1. No nephrolithiasis or hydronephrosis. 2. Decompressed urinary bladder with a prevoid volume 30 mL and postvoiding volume 4 mL (patient felt the urge to void at this capacity). MACRO: None Signed by: Gold Quiñones 09/01/2024 5:56 AM Dictation workstation: [id number] [facility] POCT UA Automated manually r esultedon 08-30-2024 Appearance (U) Clear Clear [facility] Work Phone: Glucose Test strip (U) [Mass/Vol] Negative NEGATIVE mg/dl [facility] Work Phone: Hemoglobin Ql (U) Negative NEGATIVE [facility] Work Phone: Leukocyte esterase Test strip Ql (U) Negative NEGATIVE [facility] Work Phone: Nitrite Ql (U) Negative NEGATIVE [facility] Work Phone: pH (U) 7.0 [pH] No Reference Range Established [facility] Work Phone: POC Bilirubin, Urine Negative NEGATIVE [facility] Work Phone: POC Color, Urine Yellow Straw, Yellow, Light-Yellow [facility] Work Phone: POC Ketones, Urine Negative NEGATIVE mg/dl [facility] Work Phone: POC Protein, Urine Negative NEGATIVE mg/dl [facility] Work Phone: POC Specific [place], Urine 1.020 1.005 - 1.035 [facility] Work Phone: POC Urobilinogen, Urine 0.2 0.2, 1.0 EU/DL [facility] Work Phone: [facility] Work Phone: Bacteria identifiedon 2023 Bacteria identified Cx Nom (U) Test: Urine Culture Specimen Source: Clean Catch/Voided Specimen Type: Urine Specimen Date: 06/01/2024 132 Result Date: 06/03/2024825 Result Status: Final result Abnormal: No Resulting Lab: [facility] [address] [place] [address] CULTURE Normal genitourinary juan daniel [facility] Comment on above: Performed By: #### 6 30-4 #### MARKEL Lazar ([id number]) [facility] ([facility]) [address] [place] [address] Blood type and Indirect anti body screen panel (Bld)on 04-28-2024 ABO group Nom (Bld) A [facility] Blood group antibody screen Ql Negative [facility] D Ag Ql (Bld) Positive [facility] ABO group Nom (Bld) A Normal [facility] Comment on above: Performed By: #### 3 4532-2 #### BHUMI OLIVERA ([id number]) [place] [facility] ([facility]) [address] [place] [address] Blood group antibody screen Ql Negative [facility] Comment on above: Performed By: #### 3 4532-2 #### BHUMI OLIVERA ([id number]) [facility] ([facility]) [address] [facility] [address] US D Ag Ql (Bld) Positive Normal [facility] Comment on above: Performed By: #### 3 4532-2 #### BHUMI JAROD ([id number]) [place] [facility] ([facility]) [address] [place] [address] US HCG ( test) Ql (U)o n 04-28-2024 Preg Test, Ur Negative Negative [facility] Work Phone: [facility] Work Phone: Surgical pathology studyon 0 04-28-2024 Surgical pathology study Pathology report.total SEE COMMENT Surgical Pathology Case: [id number] Authorizing Provider: Jayden Taylor MD Collected: 04/28/2024 0856 Ordering Location: [facility] OR Received: 04/28/2024 1144 Pathologist: Tere Osborne MD Specimens: A) - PELVIC SIDE WALL EXCISION, LEFT PELVIC SIDE WALL B) - PELVIC SIDE WALL EXCISION, RIGHT PELVIC SIDE WALL C) - PELVIC SIDE WALL EXCISION, POSTERIOR PELVIC CUL DE SAC D) - PELVIC SIDE WALL EXCISION, ANTERIOR PELVIC CUL DE SAC Path report.final diagnosis SEE COMMENT A. LEFT PELVIC SIDE WALL, EXCISION: -- FIBROADIPOSE TISSUE WITH ENDOMETRIOSIS. B. RIGHT PELVIC SIDE WALL, EXCISION: -- FIBROADIPOSE TISSUE WITH FOCAL CHRONIC INFLAMMATION, NO DEFINITIVE ENDOMETRIOSIS IDENTIFIED. C. POSTERIOR PELVIC CUL DE SAC, EXCISION: -- FIBROADIPOSE TISSUE WITH NO SIGNIFICANT PATHOLOGIC FINDINGS. D. ANTERIOR PELVIC CUL DE SAC, EXCISION: -- FIBROADIPOSE TISSUE WITH NO SIGNIFICANT PATHOLOGIC FINDINGS. Laboratory comment By the signature on this report, the individual or group listed as making the Final Interpretation/Diagnosis certifies that they have reviewed this case. Path report.relevant Hx SEE COMMENT Pre-op diagnosis: Endometriosis determined by laparoscopy [N80.9] Path report.gross observation SEE COMMENT A: Received in formalin, labeled with the patient's name and hospital number and left pelvic sidewall, is a fibromembranous segment of tissue measuring 6.5 x 5.0 x 0.4 cm. One aspect is smooth and glistening and the opposing aspect is roughened. The roughened aspect is inked blue. The specimen is sectioned and submitted entirely in 4 cassettes. JLL B: Received in formalin, labeled with the patient's name and hospital number and right pelvic sidewall, is a fibromembranous segment of tissue measuring 6.0 x 5.7 x 0.2 cm. One aspect is smooth and glistening and the opposing aspect is roughened. The roughened aspect is inked blue. The specimen is sectioned and submitted entirely in 5 cassettes. JLL C: Received in formalin, labeled with the patient's name and hospital number and posterior pelvic cul de *, is a fibromembranous segment of tissue measuring 3.5 x 2.6 x 0.3 cm. One aspect is smooth and glistening and the opposing aspect is roughened. The roughened aspect is inked blue. The specimen is sectioned and submitted entirely in 2 cassettes. JLL D: Received in formalin, labeled with the patient's name and hospital number and anterior pelvic cul de s*, is a fibromembranous segment of tissue measuring 6.5 x 3.5 x 0.3 cm. One aspect is smooth and glistening and the opposing aspect is roughened. The roughened aspect is inked blue. The specimen is sectioned and submitted entirely in 3 cassettes. JLL [facility] Comment on above: Order Comment: Pre-o p diagnosis: Endometriosis determined by laparoscopy [N80.9] VERAB/VERIFY ABORHon 024 ABO group Nom (Bld) A Normal [facility] Comment on above: Order Comment: Thi s is for confirming/verifying history of ABORh on file for transfusion of blood products. If this is not for transfusion, please order an ABO/RH [[id number]]. If you have any questions or unsure what to order, please call the blood bank. Performed By: #### V ERAB #### BHUMI OLIVERA ([id number]) [facility] ([facility]) [address] [place] [address] [place] [address] D Ag Ql (Bld) Positive [facility] Comment on above: Order Comment: Thi s is for confirming/verifying history of ABORh on file for transfusion of blood products. If this is not for transfusion, please order an ABO/RH [[id number]]. If you have any questions or unsure what to order, please call the blood bank. Performed By: #### V ERAB #### BHUMI OLIVERA ([id number]) [facility] ([facility]) [address] [place] [address] US VERIFY ABO/Rh Group Teston 0 04-28-2024 ABO group Nom (Bld) A [facility] D Ag Ql (Bld) Positive [facility] Basic metabolic 2000 panelon 04-19-2024 Anion gap [Moles/Vol] 10 mmol/L Normal 10-20 [facility] Comment on above: Performed By: #### 2 4321-2 #### BHUMI OLIVERA ([id number]) [facility] ([facility]) [address] [place] [address] Calcium [Mass/Vol] 9.4 mg/dL Normal 8.6-10.3 [facility] Comment on above: Performed By: #### 2 4321-2 #### BHUMI OLIVERA ([id number]) [facility] ([facility]) [address] [place] [address] Chloride [Moles/Vol] 106 mmol/L Normal 98-107 [facility] Comment on above: Performed By: #### 2 4321-2 #### BHUMI OLIVERA ([id number]) [facility] ([facility]) [address] [place] [address] CO2 [Moles/Vol] 26 mmol/L Normal 21-[address] [facility] Comment on above: Performed By: #### 2 4321-2 #### BHUMI OLIVERA ([id number]) [facility] ([facility]) [address] [place] [address] Creatinine [Mass/Vol] 0.74 mg/dL Normal 0.50-1.05 [facility] Comment on above: Performed By: #### 2 4321-2 #### BHUMI OLIVERA ([id number]) [facility] ([facility]) [address] [place] [address] GFR/1.73 sq M.predicted MDRD (S/P/Bld) [Vol rate/Area] mL/min/{1.73_m2} Normal >60 [facility] Comment on above: Result Comment: Calc ulations of estimated GFR are performed using the 2020 CKD-EPI Study Refit equation without the race variable for the IDMS-Traceable creatinine methods. https://jasn.asnjournals.org/content/early/ASN.76198 03934 Performed By: #### 2 4321-2 #### BHUMI OLIVERA ([id number]) [facility] ([facility]) [address] [place] [address] Glucose [Mass/Vol] 85 mg/dL Normal 74-99 [facility] Comment on above: Performed By: #### 2 4321-2 #### BHUMI OLIVERA ([id number]) [facility] ([facility]) [address] [place] [address] Potassium [Moles/Vol] 4.0 mmol/L Normal 3.5-5.3 [facility] Comment on above: Performed By: #### 2 4321-2 #### BHUMI OLIVERA ([id number]) [facility] ([facility]) [address] [place] [address] Sodium [Moles/Vol] 138 mmol/L Normal 136-145 [facility] Comment on above: Performed By: #### 2 4321-2 #### BHUMI OLIVERA ([id number]) [facility] ([facility]) [address] [place] [address] Urea nitrogen [Mass/Vol] 17 mg/dL Normal 6-23 [facility] Comment on above: Performed By: #### 2 4321-2 #### BHUMI OLIVERA ([id number]) [facility] ([facility]) [address] [place] [address] Hemoglobin and Hematocrit pa joyce (Bld)on 04-19-2024 Hematocrit (Bld) [Volume fraction] 39.9 % Normal 36.0-46.0 [facility] Comment on above: Performed By: #### 2 4360-0 #### BHUMI OLIVERA ([id number]) [facility] ([facility]) [address] [place] [address] Hemoglobin (Bld) [Mass/Vol] 14.3 g/dL Normal 12.0-16.0 [facility] Comment on above: Performed By: #### 2 4360-0 #### BHUMI OLIVERA ([id number]) [facility] ([facility]) [address] [place] [address] LMPon 02-15-2023 Last menstrual period start date [id number] [facility] [address] [place] Work Phone: [facility] [employer] - Office Visiton 01-30 [facility] [employer] [facility] [employer] - Office Visit Provider Florentin christine Km is a 27-year-old who comes in for routine PANEL FITTER exam exam was benign except for pelvic discomfort. Patient seen a pain specialist patient will follow-up in 1 year or sooner if she becomes Chief Complaint Patient here today for annual exam. She has no concerns. LMP: 02/08/2023. Last pap 01/14/2022 NIL. History of Present IllnessDamelchor is a 27-year-old who 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 Patient has chronic pelvic pain and is searing a pain specialist. Currently she is scheduled to see a pelvic floor therapist but the next step may be evaluation of for endometriosis. She recently became just a few weeks ago. Her and her are not preventing a but also or thinking they would like to wait until next year. Review of Systems Constitutional: Denies any significant change in temperature or weight. Cardiovascular: Denies any chest pain or palpitations. Respiratory: Denies any shortness of breath. Gastrointestinal: Reports chronic pelvic pain. Genitourinary: as noted in HPI. Musculoskeletal: Good mobility. Psychiatric: Appropriately oriented with normal mood and affect. Active Problems Problems Anxiety and depression (300.00,311) (F41.9,F32.A) Asthma (493.90) (J45.909) Chronic GERD (530.81) (K21.9) Deep dyspareunia in female (625.0) (N94.12) Idiopathic urticaria (708.1) (L50.1) Irritable bowel syndrome with predominant constipation (564.1) (K58.1) Panic attacks (300.01) (F41.0) Pelvic pain in female (625.9) (R10.2) Severe persistent asthma, unspecified whether complicated (493.90) (J45.50) Past Medical History Problems History of Abnormal CT scan, sigmoid colon (793.4) (R93.3) Resolved Date: 31 Dec 2021 History of Asthma exacerbation (493.92) (J45.901) Resolved Date: 31 Dec 2021 History of Constipation, acute (564.00) (K59.00) Resolved Date: 31 Dec 2021 History of Esophageal dysphagia (787.29) (R13.19) Resolved Date: 22 Apr 2022 History of Exacerbation of asthma (493.92) (J45.901) Resolved Date: 22 Apr 2022 History of Flu-like symptoms (780.99) (R68.89) Resolved Date: 31 Dec 2021 History of abdominal pain (V13.89) (Z87.898) Resolved Date: 24 Jun 2021 History of acute sinusitis (V12.69) (Z87.09) Resolved Date: 24 Jun 2021 History of nausea and vomiting (V12.79) (Z87.898) Resolved Date: 31 Dec 2021 History of urinary tract infection (V13.02) (Z87.440) Resolved Date: 31 Dec 2021 History of Menstruation age 12 History of Other constipation (564.09) (K59.09) Resolved Date: 24 Jun 2021 History of Screening for cervical cancer (V76.2) (Z12.4) Resolved Date: 22 Apr 2022 History of Screening for STD (sexually transmitted disease) (V74.5) (Z11.3) Resolved Date: 22 Apr 2022 Surgical History Problems History of Appendectomy 2019 Family History Mother Family history of Cervical carcinoma Family history of depression (V17.0) (Z81.8) Family history of diabetes mellitus (V18.0) (Z83.3) Family history of hypertension (V17.49) (Z82.49) Family history of malignant neoplasm (V16.9) (Z80.9) Family history of malignant neoplasm of thyroid (V16.8) (Z80.8) Family history of migraine headaches (V17.2) (Z82.0) Father Family history of asthma (V17.5) (Z82.5) Family history of depression (V17.0) (Z81.8) Family history of hypertension (V17.49) (Z82.49) Family history of migraine headaches (V17.2) (Z82.0) Family history of sleep apnea (V19.8) (Z82.0) Family history of Irregular heart beat Sister Family history of asthma (V17.5) (Z82.5) Brother Family history of depression (V17.0) (Z81.8) Social History Problems Consumes alcohol occasionally (V49.89) (Z78.9) Daily caffeine consumption Does not use illicit drugs (V49.89) (Z78.9) Never smoker Allergies Medication Sulfa Drugs Hives;; Recorded By: Mike Del Real; 09/01/2019 11:39:25 AM Serotonin Reuptake Inhibitors Recorded By: Dejan Strange; 05/25/2022 1:47:42 PM Current Meds Medication NameInstruction Breo Ellipta 200-25 MCG/INH AEPBINHALE 1 PUFFS Daily Claritin 10 MG Oral Tablet Levalbuterol Tartrate 45 MCG/ACT Inhalation AerosolTAKE 1 PUFF BY MOUTH EVERY 4 HOURS NEEDED Montelukast Sodium 10 MG Oral Tablettake 1 tablet by mouth at bedtime Ondansetron HCl - 4 MG Oral TabletTAKE 1 TABLET Every 6 hours PRN nausea Pantoprazole Sodium 40 MG Oral Tablet Delayed ReleaseTAKE 1 TABLET BY MOUTH EVERY DAY Unspecified MedicationVALIUM VAGINAL SUP. 5 MG TID PRN PAIN Venlafaxine HCl ER 75 MG Oral Capsule Extended Release 24 HourTAKE 1 CAPSULE ONCE DAILY WITH FOOD. Vitals Vital Signs Recorded: [id number] 10:24AM [id number] Ueubimyzs10 Height4 ft 11 in Rzbvjn734 lb 2 oz BMI Ifakayroxx92.86 kg/m2 BSA Calculated1.47 [id number] Physical Exam Constitutional: Healthy appearing young female. Head and Face: No obvious lesions. Neck: Supple without adenopathy or masses. Cardiovascular: Regular rate and rhythm. Pulmonary (more content not included)... Normal [facility] No Panel Informationon 02-01 Normal [facility] [address] Work Phone: Radiologyon 02-01-2023 US Gallbladder Normal [facility] [address] Work Phone: SPINE, LUMBOSACRAL MIN 4 VIE WSon 02-01-2023 SPINE, LUMBOSACRAL MIN 4 VIEWS Patient Name: KM HUNT STUDY: Lumbar Spine, 5 views. INDICATION: low back pain. COMPARISON: CT of the abdomen and pelvis 11/19/2022 ACCESSION NUMBER(S): [id number] ORDERING CLINICIAN: SUKH POLLOCK FINDINGS: Mild grade 1 L5-S1 anterolisthesis. Disc heights are maintained. Mild facet arthropathy at L5-S1. Vertebral body heights are preserved. Unilateral left L5 pars defects better visualized on the previous CT from 11/19/2022 IMPRESSION: 1. As above. Electronically signed by: SINAN BENOIT MD [facility] GALLBLADDERon 02-01-2023 US GALLBLADDER Patient Name: KM HUNT STUDY: US GALLBLADDER; 02/01/2023 12:29 pm INDICATION: nausea and vomiting. COMPARISON: None. ACCESSION NUMBER(S): [id number] ORDERING CLINICIAN: SUKH POLLOCK TECHNIQUE: Multiple grayscale ultrasonographic images were obtained through the right upper quadrant. FINDINGS: LIVER: The liver is grossly unremarkable in appearance, without evidence of focal masses. The length of the right lobe is 14 cm. GALLBLADDER: The gallbladder is nondilated without evidence of gallstones, wall thickening or pericholecystic fluid. No ultrasonographic Azar's sign was elicited. A small amount of biliary sludge is present. BILIARY TREE: There is no intra or extrahepatic biliary dilatation present, with the common bile duct measuring 2.4 mm. PANCREAS: The visualized portions of the pancreas are within normal limits, without evidence of focal masses. The head, neck and body are visualized with the tail obscured by bowel gas. RIGHT KIDNEY: Screening evaluation of the right kidney demonstrates no evidence of hydronephrosis. The length of the right kidney is 11 cm. IMPRESSION: No acute disease. Small amount of sludge within gallbladder. Electronically signed by: KIRSTIN HI MD Normal [facility] HEAD OF ETHICS AND COMPLIANCE - Office Visiton 05 HEAD OF ETHICS AND COMPLIANCE - Office Visit Diagnoses/Problems Assessed Anxiety and depression (300.00,311) (F41.9,F32.A) Deep dyspareunia in female (625.0) (N94.12) Panic attacks (300.01) (F41.0) Pelvic pain in female (625.9) (R10.2) Provider Impressions 27 yo G0 [address] Lr for pelvic pain. - We discussed today the multiple etiologies of chronic pelvic pain, including endometriosis, adenomyosis, GI etiologies, MSK etiologies, and centralization of pain. I am primarily suspicious of pelvic floor/abdominal wall dysfunction in her case, however endometriosis cannot be definitively rule out. - We discussed the role of surgical excision in the management of endometriosis and the estimated 15-20% recurrence rate in the future. We also reviewed the association between endometriosis and adenomyosis, as well as the fact that definitive diagnosis of adenomyosis cannot be made without hysterectomy. - We discussed the natural history of endometriosis and the fact that hormonal suppression is thought to have a role in slowing disease progression and managing symptoms of endometriosis, but cannot definitively reverse or eliminate endometriosis. - I would not recommended proceeding with surgical excision immediately given suspicion for pelvic floor dysfunction and the likelihood that surgery will worsen this. I would recommend starting with vaginal Valium and PFPT to see if this improves pain symptoms. - She is getting soon and is considering in the coming months, so would prefer to avoid menstrual suppression. Plan: - vaginal Valium, PFPT, given information for PT resources - Consider menstrual suppression and/or surgical excision pending pain response and fertility goals - Recommend keeping a pain journal to see if she can identify any triggers - RTC in 3-6 months Chief Complaint Patient presents with pelvic pain, trouble emptying bladder. PAP 01/14/2022 WNL; LMP 12/08/2022; G0 [employer] TECHNICIAN Adult Risk ScreeningThere are no spiritual/cultural practices/values/needs that are important to know Initial Fall Risk Screening: KM has not fallen in the last 6 months. Living Will. Living Will: No living will on file. Healthcare POA: No healthcare proxy on file. Declaration of Mental Health Treatment: No mental health treatment on file. Tobacco Screening: Has not used tobacco in the past 6 months. Has not tried to quit or thought about quitting tobacco. Domestic Violence Screen: Does not feel threatened or abused physically, emotionally or sexually. Do you feel UNSAFE? The patient feels safe in the home. Depression/Suicide Screening: During the past 2 weeks, the patient has not felt down, depressed or hopeless. During the past 2 weeks, the patient has not felt little interest or pleasure in doing things. She does not have a risk of suicide. She has not had thoughts of harming others. Single alcohol screening question: In the past year the patient has had 5 or more drinks (men) or 4 or more drinks (women)? 0 time(s). Single substance abuse screening question: In the past year the patient has used a recreational drug or used a prescription drug for non-medical reasons? 0 time(s). Procedure or Sedation Areas: patient has not had alcohol, recreational drugs, or prescription drugs for non-medical reasons this morning. Nutrition Screening: In the past month, there was not a day when I or anyone in my family went hungry because there was not enough food. Patient Education: The patient denies that they or the person with them has problems with hearing, speaking, seeing, moving around or learning The patient is comfortable filling out medical forms. Food Insecurity: 1. Within the past 12 months, you worried that your food would run out before you got money to buy more: No 2. Within the past 12 months, the food you bought just didn't last and you didn't have money to get more: No History of Present Illness 27 yo G0 referred by Dr. Lr for pelvic pain. Km reports a hx of LLQ pelvic pain for the past 5 years. She is unsure if pain is cyclical, but its not related to bleeding. It happens several times a year, but she has not noticed a pattern. She has tried multiple other methods of hormonal suppression, including SHAHANA's, NuvaRing. Pain continued despite suppression. She also tried progesterone IUD, but this was removed due to persistent discomfort w/ IUD. Tylenol and ibuprofen have not offered relief. She has not tried PFPT. She does report deep dyspareunia, as well as pain w/ eating/drinking. Recently, she has developed persistent dysuria with difficult voiding completely. She has had several rounds of antibiotics for UTI without improvement in symptoms. Recent UCx negative. She does have a history of moderate urinary retention w/ Valsalva voiding. Of note, urinary retention is most significant when LLQ pain flares. Menses occur somewhat regularly, but they are often 5-6 days late. She does report intermittent ovulatory pain (s (more content not included)... Normal [facility] Tobacco Screening.on Adult depression screening assessment No MG-OBGYN-Ri s [facility] [address] Work Phone: Fall risk assessment a) No falls within the last year [id number]-[id number] [facility] [address] Work Phone: Last menstrual period start date 08Dec2022 SQ-YFLSL-Nvk [facility] [address] Work Phone: Tobacco use status [facility] b) No BW-MAWLB-Zyf [address] Work Phone: Office Visit ([facility])o n 12-02-2022 Follow-up visit Diagnoses/Problems Assessed Pelvic pain in female (625.9) (R10.2) Deep dyspareunia in female (625.0) (N94.12) *Orders Asthma Continue: Breo Ellipta 200-25 MCG/INH AEPB; INHALE 1 PUFFS Daily Continue: Levalbuterol Tartrate 45 MCG/ACT Inhalation Aerosol; TAKE 1 PUFF BY MOUTH EVERY 4 HOURS NEEDED Pelvic pain in female Physical Therapy - Pelvic Floor Referral Evaluation and Treatment Evaluate AND Treat Status: Hold For - Scheduling Requested for: 02Dec2022 PMH: Esophageal dysphagia Continue: Pantoprazole Sodium 40 MG Oral Tablet Delayed Release; TAKE 1 TABLET BY MOUTH EVERY DAY Pelvic pain in female (625.9) (R10.2) Provider Impressions Assessment: 27 year old female with pelvic pain. Comorbidities include: GERD, anxiety and depression, asthma, and IBS-c. Diagnoses: #1 Pelvic pain Plan: 1. Pelvic pain, dyspareunia, ddx: endometriosis, IC, PID - We had a long discussion regarding the complex interplay between various organ systems in chronic pelvic pain - Discussed the exact diagnosis here is unclear at this time, possible component of endometriosis and/or IC/BPS. Counseled on the signs/symptoms of both diagnoses. - Counseled the etiology of IC/cystitis/painful bladder syndrome caused by bladder inflammation and symptoms include urinary urgency, urinary frequency, and bladder pain accompanied with negative urine cxs. - Discussed trying PFPT with Irene Rodriguez in [place]. Patient is amenable to this. PFPT requisition sent today and gave her the list of local physical therapists with their corresponding locations/contact information. - Referral made to Dr. Jayden Taylor for consultation and to determine whether surgical intervention (diagnositc laparoscopy) would be beneficial. Follow-up as needed with Dr. Mariah Lr. I, Alban Gaffney, am scribing for virtually, and in the presence of Dr. Mariah Lr on 12/02/2022 at 6:16 PM. Chief Complaint Pt here for ovaries in ovaries. Adult Risk ScreeningThere are no spiritual/cultural practices/values/needs that are important to know Initial Fall Risk Screening: KM has not fallen in the last 6 months. Pain Scale: On a scale of 0 to 10, the patient rates the pain at 5. Please identify location of pain: Pain in overies. Pain Quality: pressure and sharp. Living Will. Living Will: No living will on file. Healthcare POA: No healthcare proxy on file. Declaration of Mental Health Treatment: No mental health treatment on file. Tobacco Screening: KM does not use tobacco. Domestic Violence Screen: Does not feel threatened or abused physically, emotionally or sexually. Do you feel UNSAFE? The patient feels safe in the home. Depression/Suicide Screening: During the past 2 weeks, the patient felt down, depressed or hopeless. During the past 2 weeks, the patient felt little interest or pleasure in doing things. She does not have a risk of suicide. She has not had thoughts of harming others. Single alcohol screening question: In the past year the patient has had 5 or more drinks (men) or 4 or more drinks (women)? 0 time(s). Single substance abuse screening question: In the past year the patient has used a recreational drug or used a prescription drug for non-medical reasons? 0 time(s). Nutrition Screening: In the past month, there was not a day when I or anyone in my family went hungry because there was not enough food. The patient is comfortable filling out medical forms. Food Insecurity: 1. Within the past 12 months, you worried that your food would run out before you got money to buy more: No 2. Within the past 12 months, the food you bought just didn't last and you didn't have money to get more: No History of Present Illness Testing results: PVR results not available and UA results not available. Pelvic symptoms: dysmenorrhea and pelvic pain. Urinary symptoms: urgency , frequency and hesitancy. Rectal symptoms: constipation. Other symptoms: fever, abdominal pain, nausea, back pain and fatigue. 27yo who presents as a referral from Dr. Sharda Chávez for pelvic pain. She presents today with her mother, Yessi. Patient with pelvic pain over the last 5 years - pelvic pain started after she had an IUD placed around 3-4 years ago which she had subsequently removed 1 year later due to experiencing persistent pain in association with her IUD placement. Her pelvic pain started several years ago after trying different control methods (i.e. IUD, NuvaRing, OCPs) and ultimately discontinued all forms of control. Her pelvic pain is triggered by intercourse and she reports experiencing dyspareunia; her pain is exacerbated by eating/drinking. She has never tried PFPT in the past. Has tried Tylenol and Ibuprofen to manage her pelvic pain in the past with failure. She uses a heating pad and puts pressure on the area of discomfort with the heat pack that improves her pain pain slightly. She has been experiencing worsening pelvic cecilio (more content not included)... Normal [facility] Tobacco Screening.on 023 Adult depression screening assessment Yes [facility] Work Phone: Fall risk assessment a) No falls within the last year [facility] Work Phone: Last menstrual period start date 09Nov2022 [facility] Work Phone: Tobacco use status [facility] b) No [facility] Work Phone: Cult, Urineon 11-24-2022 Bacteria identified Cx Nom (U) [facility] Work Phone: LMPon 11-24-2022 Last menstrual period start date [id number] [facility] [address] Work Phone: HEAD OF ETHICS AND COMPLIANCE - Office Visiton 11-01 HEAD OF ETHICS AND COMPLIANCE - Office Visit Provider Florentin christine Km is a 27-year-old with her second episode of urinary difficulties and low-grade pelvic pain. Her chlamydia and gonorrhea have been repeatedly tested and been negative. She is tested negative for trichomoniasis and her CT scans and ultrasound have all been unremarkable. No urine culture has been sent recently despite several courses of antibiotics and no improvement in her symptoms. Patient is interested in pursuing a laparoscopy however I explained to the patient that endometriosis is typically not episodic once or twice a year. I explained to her that it is menstrual pain that comes every month and only while you are on your menses. Additionally it does not have episodic exacerbations and then prolonged periods of remission. At this point I recommend that she have an evaluation done by your cementer machine applicator and if that yields no answers then we could proceed to a laparoscopy Chief Complaint Patient here today for ER follow up. She is having abdominal discomfort all the time almost a burning bloating sensation. She notes she has IBS-c. She has nausea and vomiting associated with bowel movements. She has pain with intercourse. LMP 11/09/22 History of Present IllnessDamelchor is a 27-year-old who comes in for follow-up from an ER visit. She reports that over the last month she has been having difficulty with urination. She reports that she has to buckle over and press on her bladder as if she is bloated in order to be able to void. She reports that her PCP has called in 2 courses of antibiotics for UTI without any significant relief. She reports some low-grade pain that has been going on now for approximately a month. She is reports that this is the second episode she has had over the last 12 months of this discomfort and voiding difficulties. She was under the impression that when she was seen at urgent care and in the emergency room that a urine culture was sent. Patient also reports that she has discomfort with intercourse. She was here last year and felt that discomfort that she was experiencing at that time was related to an IUD which was removed last summer. Active Problems Problems Anxiety and depression (300.00,311) (F41.9,F32.A) Asthma (493.90) (J45.909) Candidiasis of vagina (112.1) (B37.31) Chronic GERD (530.81) (K21.9) Deep dyspareunia in female (625.0) (N94.12) Idiopathic urticaria (708.1) (L50.1) Irritable bowel syndrome with predominant constipation (564.1) (K58.1) Nausea in adult (787.02) (R11.0) Panic attacks (300.01) (F41.0) Pelvic pain in female (625.9) (R10.2) Psychophysiological insomnia (307.42) (F51.04) Seasonal allergies (477.9) (J30.2) Severe persistent asthma, unspecified whether complicated (493.90) (J45.50) UTI (urinary tract infection) (599.0) (N39.0) Past Medical History Problems History of Abnormal CT scan, sigmoid colon (793.4) (R93.3) Resolved Date: 31 Dec 2021 History of Asthma exacerbation (493.92) (J45.901) Resolved Date: 31 Dec 2021 History of Constipation, acute (564.00) (K59.00) Resolved Date: 31 Dec 2021 History of Esophageal dysphagia (787.29) (R13.19) Resolved Date: 22 Apr 2022 History of Exacerbation of asthma (493.92) (J45.901) Resolved Date: 22 Apr 2022 History of Flu-like symptoms (780.99) (R68.89) Resolved Date: 31 Dec 2021 History of abdominal pain (V13.89) (Z87.898) Resolved Date: 24 Jun 2021 History of acute sinusitis (V12.69) (Z87.09) Resolved Date: 24 Jun 2021 History of nausea and vomiting (V12.79) (Z87.898) Resolved Date: 31 Dec 2021 History of urinary tract infection (V13.02) (Z87.440) Resolved Date: 31 Dec 2021 History of Menstruation age 12 History of Other constipation (564.09) (K59.09) Resolved Date: 24 Jun 2021 History of Screening for cervical cancer (V76.2) (Z12.4) Resolved Date: 22 Apr 2022 History of Screening for STD (sexually transmitted disease) (V74.5) (Z11.3) Resolved Date: 22 Apr 2022 Surgical History Problems History of Appendectomy 2019 Family History Mother Family history of Cervical carcinoma Family history of depression (V17.0) (Z81.8) Family history of diabetes mellitus (V18.0) (Z83.3) Family history of hypertension (V17.49) (Z82.49) Family history of malignant neoplasm (V16.9) (Z80.9) Family history of malignant neoplasm of thyroid (V16.8) (Z80.8) Family history of migraine headaches (V17.2) (Z82.0) Father Family history of asthma (V17.5) (Z82.5) Family history of depression (V17.0) (Z81.8) Family history of hypertension (V17.49) (Z82.49) Family history of migraine headaches (V17.2) (Z82.0) Family history of sleep apnea (V19.8) (Z82.0) Family history of Irregular heart beat Sister Family history of asthma (V17.5) (Z82.5) Brother Family history of depression (V17.0) (Z81.8) Social History Problems Consumes alcohol occasionally (V49.89) (Z78.9) Daily caffeine consumption Does not use illicit drugs (V49.89) (Z78.9) Never smoker Allergies Medicatio (more content not included)... Normal Touchworks UA MICROSCOPICon 11-24-2022 BACTERIA 1+ /HPF Abnormal [facility] Comment on above: Performed By: #### U AMIC #### [address] [address] Mucus Ql (Urine sed) 1+ /LPF Normal [facility] Comment on above: Performed By: #### U AMIC #### [address] [address] RBC (U) [#/Vol] /uL Normal 0-5 [facility] Comment on above: Performed By: #### U AMIC #### [address] [address] SQUAMOUS EPITH. CELLS 1 /HPF Normal [facility] Comment on above: Performed By: #### U AMIC #### [address] [address] WBC (U) [#/Vol] /uL Normal 0-5 [facility] Comment on above: Performed By: #### U AMI #### [facility] [address] [place] [address] URINE CULTURE,BACTERIALon URINE CULTURE,BACTERIAL PATIENT: KM HUNT LOCATION: [id number] BILL#: [id number] : [birth year] AGE: SEX: F ORDERED BY: SHARDA CHÁVEZ SOURCE: URINE COLLECTED: 11/24/22 10:17 ANTIBIOTICS AT TREVER.: RECEIVED : 11/24/22 23:58 SITE: Clean Catch/Voided R E S U L T S URINE CULTURE,BACTERIAL FINAL 11/25/22 19:[address] [facility] Comment on above: Performed By: #### U RINC #### [facility] [address] [place] [address] Urinalysis, Microscopicon Urinalysis, Microscopic 1+ Abnormal [facility] [address] Work Phone: [phone] Urinalysis, Microscopic 1 {/HPF} [facility] [address] Work Phone: [phone] Urinalysis, Microscopic <1 0-5 [facility] [address] Work Phone: [phone] TRICHOMONAS,NUCLEIC ACID DET ECTIONon 11-20-2022 TRICHOMONAS VAGINALIS Negative Normal Negative [facility] Comment on above: Result Comment: The APTIMA Trichomonas vaginalis assay is FDA-approved for testing on female endocervical swabs, vaginal swabs, and ThinPrep liquid pap samples. Performance characteristics for Trichomonas vaginalis on specific pho-JDV-gldlxsta sample types (female and male urine and male urethral swabs) have been validated by [facility]. This laboratory is certified by CLIA to perform high complexity testing. Samples from all other sites are not validated for this method. Performance characteristics for Trichomonas Vaginalis testing on urine samples has been validated by [facility]. Testing on this sample type is not FDA-approved, but such approval is not necessary. This laboratory is certified by CLIA to perform high complexity testing. Performed By: #### T SIOMARA #### [facility] [address] [place] [address] BASIC METABOLIC PANELon 04-2 -2022 Anion gap [Moles/Vol] 13 mmol/L Normal 10 - 20 [facility] Comment on above: Performed By: #### B MP #### [address] [address] Calcium [Mass/Vol] 10.2 mg/dL Normal 8.6 - 10.3 [facility] Comment on above: Performed By: #### B MP #### [address] [address] Chloride [Moles/Vol] 103 mmol/L Normal 98 - 107 [facility] Comment on above: Performed By: #### B MP #### [address] [address] Creatinine [Mass/Vol] 0.80 mg/dL Normal 0.50 - 1.05 [facility] Comment on above: Performed By: #### B MP #### [address] [address] eGFR FEMALE >90 Normal >90 [facility] Comment on above: Result Comment: CALC ULATIONS OF ESTIMATED GFR ARE PERFORMED USING THE 2020 CKD-EPI STUDY REFIT EQUATION WITHOUT THE RACE VARIABLE FOR THE IDMS-TRACEABLE CREATININE METHODS. https://jasn.asnjournals.org/content//ASN.39697 [address] Performed By: #### B MP #### [address] [address] Glucose [Mass/Vol] 76 mg/dL Normal 74 - 99 [facility] Comment on above: Performed By: #### B MP #### [address] [address] HCO3 (Bld) [Moles/Vol] 27 mmol/L Normal 21 - 32 [facility] Comment on above: Performed By: #### B MP #### [address] [address] Potassium [Moles/Vol] 3.5 mmol/L Normal 3.5 - 5.3 [facility] Comment on above: Performed By: #### B MP #### [address] [address] Sodium [Moles/Vol] 139 mmol/L Normal 136 - 145 [facility] Comment on above: Performed By: #### B MP #### [address] [address] Urea nitrogen [Mass/Vol] 18 mg/dL Normal 6 - 23 [facility] Comment on above: Performed By: #### B MP #### [place] [id number] CBC AND DIFFERENTIALon 11-19 % AUTOMATED IMMATURE GRAN 0.1 % Normal 0.0 - 0.9 [facility] Comment on above: Result Comment: Radhika ture Granulocyte Count (IG) includes promyelocytes, myelocytes and metamyelocytes but does not include bands. Percent differential counts (%) should be interpreted in the context of the absolute cell counts (cells/L). Performed By: #### C BCDF #### [place] [id number] Basophils (Bld) [#/Vol] 0.05 10*3/uL Normal 0.00 - 0.10 [facility] Comment on above: Performed By: #### C BCDF #### [address] [address] Basophils/100 WBC (Bld) 0.7 % Normal 0.0 - 2.0 [facility] Comment on above: Performed By: #### C BCDF #### [address] [address] Eosinophils (Bld) [#/Vol] 0.16 10*3/uL Normal 0.00 - 0.70 [facility] Comment on above: Performed By: #### C BCDF #### [address] [address] Eosinophils/100 WBC (Bld) 2.2 % Normal 0.0 - 6.0 [facility] Comment on above: Performed By: #### C BCDF #### [address] [address] Erythrocyte distribution width (RBC) [Ratio] 11.4 % Low 11.5 - 14.5 [facility] Comment on above: Performed By: #### C BCDF #### [address] [address] Hematocrit (Bld) [Volume fraction] 40.8 % Normal 36.0 - 46.0 [facility] Comment on above: Performed By: #### C BCDF #### [address] [address] Hemoglobin (Bld) [Mass/Vol] 14.1 g/dL Normal 12.0 - 16.0 [facility] Comment on above: Performed By: #### C BCDF #### [address] [address] Lymphocytes (Bld) [#/Vol] 3.30 10*3/uL Normal 1.20 - 4.80 [facility] Comment on above: Performed By: #### C BCDF #### [address] [address] Lymphocytes/100 WBC (Bld) 46.0 % Normal 13.0 - 44.0 [facility] Comment on above: Performed By: #### C BCDF #### [address] [address] MCHC (RBC) [Mass/Vol] 34.6 g/dL Normal 32.0 - 36.0 [facility] Comment on above: Performed By: #### C BCDF #### [address] [address] MCV (RBC) [Entitic vol] 86 fL Normal 80 - 100 [facility] Comment on above: Performed By: #### C BCDF #### [address] [address] Monocytes (Bld) [#/Vol] 0.39 10*3/uL Normal 0.10 - 1.00 [facility] Comment on above: Performed By: #### C BCDF #### [address] [address] Monocytes/100 WBC (Bld) 5.4 % Normal 2.0 - 10.0 [facility] Comment on above: Performed By: #### C BCDF #### [address] [address] Neutrophils (Bld) [#/Vol] 3.26 10*3/uL Normal 1.20 - 7.70 [facility] Comment on above: Result Comment: Perc ent differential counts (%) should be interpreted in the context of the absolute cell counts (cells/L). Performed By: #### C BCDF #### [address] [address] Neutrophils/100 WBC (Bld) 45.6 % Normal 40.0 - 80.0 [facility] Comment on above: Performed By: #### C BCDF #### [address] [address] Platelets (Bld) [#/Vol] 309 10*3/uL Normal 150 - 450 [facility] Comment on above: Performed By: #### C BCDF #### [address] [address] RBC 4.74 x10E12/L Normal 4.00 - 5.20 [facility] Comment on above: Performed By: #### C BCDF #### [address] [address] WBC (Bld) [#/Vol] 7.2 10*3/uL Normal 4.4 - 11.3 [facility] Comment on above: Performed By: #### C BCDF #### [address] [address] [address] ABDOMEN AND PELVIS W IV C [facility] 11-19-2022 CT ABDOMEN AND PELVIS W IV CONTRAST Patient Name: KM HUNT STUDY: CT ABDOMEN AND PELVIS W IV CONTRAST; 11/19/2022 7:00 pm INDICATION: llq abd pain . COMPARISON: 01/01/2022 ACCESSION NUMBER(S): [id number] ORDERING CLINICIAN: PAOLA PICKARD TECHNIQUE: Contiguous axial images of the abdomen and pelvis were obtained after the intravenous administration of 79 mL Omnipaque 350 contrast. Coronal and sagittal reformatted images were reconstructed from the axial data. FINDINGS: LOWER CHEST: No acute abnormality. ABDOMEN/PELVIS: ABDOMINAL WALL: No significant abnormality. LIVER: No significant parenchymal abnormality. BILE DUCTS: No significant intrahepatic or extrahepatic dilatation. GALLBLADDER: No significant abnormality. PANCREAS: No significant abnormality. SPLEEN: No significant abnormality. ADRENALS: No significant abnormality. KIDNEYS, URETERS, BLADDER: No significant abnormality. REPRODUCTIVE ORGANS: No significant abnormality. VESSELS: Normal caliber aorta without significant atherosclerosis or dissection. There is a retroaortic left renal vein. The portal and hepatic veins are patent. RETROPERITONEUM/LYMPH NODES: No enlarged lymph nodes. BOWEL/MESENTERY/PERITONE UM: No inflammatory bowel wall thickening or dilatation. Surgically absent appendix. No ascites, free air, or fluid collection. MUSCULOSKELETAL: No acute osseous abnormality. IMPRESSION: No acute abnormality within the abdomen or pelvis. Electronically signed by: JOSE RILEY MD Normal [facility] CT Abdomen and Pelvis with I V Contraston 11-19-2022 CT Abdomen and Pelvis W contrast IV Normal [facility] [place] Work Phone: [phone] Complete Blood Count + Diffe rentialon 11-19-2022 Basophils/100 WBC (Bld) 0.7 % 0.0 - 2.0 [facility] [facility] Work Phone: [phone] Erythrocyte distribution width (RBC) [Ratio] 11.4 % below low threshold See Below [facility] Work Phone: [phone] Comment on above: Reference Range: 11. 5 - 14.5 Hematocrit (Bld) [Volume fraction] 40.8 % See Below [facility] [address] Work Phone: [phone] Comment on above: Reference Range: 36. 0 - 46.0 Hemoglobin (Bld) [Mass/Vol] 14.1 g/dL See Below [facility] [address] Work Phone: [phone] Comment on above: Reference Range: 12. 0 - 16.0 Lymphocytes/100 WBC (Bld) 46.0 % See Below [facility] [facility] Work Phone: [phone] Comment on above: Reference Range: 13. 0 - 44.0 MCHC (RBC) [Mass/Vol] 34.6 g/dL See Below [facility] [address] Work Phone: [phone] Comment on above: Reference Range: 32. 0 - 36.0 MCV (RBC) [Entitic vol] 86 fL 80 - 100 [facility] [address] Work Phone: [phone] Monocytes/100 WBC (Bld) 5.4 % 2.0 - 10.0 [facility] [address] Work Phone: [phone] Neutrophils/100 WBC (Bld) 45.6 % See Below [facility] [address] Work Phone: [phone] Comment on above: Reference Range: 40. 0 - 80.0 Platelets (Bld) [#/Vol] 309 10*3/uL 150 - 450 [facility] [address] Work Phone: [phone] RBC (Bld) [#/Vol] 4.74 {x10E12/L} See Below [facility] [address] Work Phone: [phone] Comment on above: Reference Range: 4.0 0 - 5.20 WBC (Bld) [#/Vol] 7.2 10*3/uL 4.4 - 11.3 [facility] [place] [address] Work Phone: [phone] Complete Blood Count + Differential 0.05 {x10E9/L} See Below [facility] [address] Work Phone: [phone] Comment on above: Reference Range: 0.0 0 - 0.10 Complete Blood Count + Differential 0.16 {x10E9/L} See Below [facility] [address] Work Phone: [phone] Comment on above: Reference Range: 0.0 0 - 0.70 Complete Blood Count + Differential 0.39 {x10E9/L} See Below [facility] [place] [address] Work Phone: [phone] Comment on above: Reference Range: 0.1 0 - 1.00 Complete Blood Count + Differential 3.30 {x10E9/L} See Below [facility] [place] [address] Work Phone: [phone] Comment on above: Reference Range: 1.2 0 - 4.80 Complete Blood Count + Differential 3.26 {x10E9/L} See Below [employer] [facility] [address] Work Phone: [phone] Comment on above: Reference Range: 1.2 0 - 7.70 Percent differential counts (%) should be interpreted in the context of the absolute cell counts (cells/L). Complete Blood Count + Differential 2.2 % 0.0 - 6.0 [facility] [address] Work Phone: [phone] Complete Blood Count + Differential 0.1 % 0.0 - 0.9 [facility] [employer] [facility] Work Phone: [phone] Comment on above: Immature Granulocyte Count (IG) includes promyelocytes, myelocytes and metamyelocytes but does not include bands. Percent differential counts (%) should be interpreted in the context of the absolute cell counts (cells/L). GC + CHLAMYDIA BY AMPLIFIED DETECTIONon 11-19-2022 CHLAMYDIA TRACH.,AMPLIFIED Not detected Normal NOT DETECTED [facility] Comment on above: Performed By: #### G [facility] #### [place] [address] Lab Specimen Source Urine Normal [facility] Comment on above: Performed By: #### G [facility] #### [place] [address] Performed By: #### T SIOMARA #### [facility] [address] [place] [address] N.GONORRHEA,AMPLIFIED Not detected Normal NOT DETECTED [facility] Comment on above: Performed By: #### G [facility] #### [place] [address] GC + Chlamydia By Amplified Detectionon 11-19-2022 C. trachomatis rRNA SHANAE+probe Ql (Unsp spec) Not detected See Below [facility] [address] Work Phone: Comment on above: Reference Range: NOT DETECTED N. gonorrhoeae rRNA SHANAE+probe Ql (Unsp spec) Not detected See Below [facility] [address] Work Phone: Comment on above: SOURCE: UrineReferen ce Range: NOT DETECTED HCG,URINEon 11-19-2022 Beta HCG ( test) Ql (U) Negative Normal Negative [facility] Comment on above: Performed By: #### U ARFX #### [address] [address] HEPATIC FUNCTION PANELon Albumin [Mass/Vol] 4.9 g/dL Normal 3.4 - 5.0 [facility] Comment on above: Performed By: #### H EPFP #### [address] [address] ALP [Catalytic activity/Vol] 53 U/L Normal 33 - 110 [facility] Comment on above: Performed By: #### H EPFP #### [address] [address] ALT [Catalytic activity/Vol] 25 U/L Normal 7 - 45 [facility] Comment on above: Result Comment: Sara ents treated with Sulfasalazine may generate falsely decreased results for ALT. Performed By: #### H EPFP #### [address] [address] AST [Catalytic activity/Vol] 22 U/L Normal 9 - 39 [facility] Comment on above: Performed By: #### H EPFP #### [address] [address] Bilirubin [Mass/Vol] 0.6 mg/dL Normal 0.0 - 1.2 [facility] Comment on above: Performed By: #### H EPFP #### [address] [address] Bilirubin.indirect [Mass/Vol] 0.1 mg/dL Normal 0.0 - 0.3 [facility] Comment on above: Performed By: #### H EPFP #### [address] [address] Protein [Mass/Vol] 7.6 g/dL Normal 6.4 - 8.2 [facility] Comment on above: Performed By: #### H EPFP #### [place] [id number] Hepatic Function Panelon Albumin BCP dye [Mass/Vol] 4.9 g/dL 3.4 - 5.0 [facility] [place] [address] Work Phone: [phone] ALP [Catalytic activity/Vol] 53 U/L 33 - 110 [facility] [place] [address] Work Phone: [phone] ALT With P-5'-P [Catalytic activity/Vol] 25 U/L 7 - 45 [facility] Work Phone: [phone] Comment on above: Patients treated wit h Sulfasalazine may generate falsely decreased results for ALT. AST With P-5'-P [Catalytic activity/Vol] 22 U/L 9 - 39 [facility] [address] Work Phone: [phone] Bilirubin [Mass/Vol] 0.6 mg/dL 0.0 - 1.2 [facility] [facility] Work Phone: [phone] Bilirubin.direct [Mass/Vol] 0.1 mg/dL 0.0 - 0.3 [facility] [address] Work Phone: [phone] Protein [Mass/Vol] 7.6 g/dL 6.4 - 8.2 [facility] [address] Work Phone: [phone] LIPASEon 11-19-2022 Lipase [Catalytic activity/Vol] 19 U/L Normal 9 - 82 [facility] Comment on above: Result Comment: Stephanie puncture immediately after or during the administration of Metamizole may lead to falsely low results. Testing should be performed immediately prior to Metamizole dosing. Y-kkparj-h-benzoquinone imine (metabolite of Acetaminophen) will generate erroneously low results in samples for patients that have taken toxic doses of acetaminophen. Performed By: #### L IPAS #### [place] [id number] Laboratory - Chemistry and C hemistry - challengeon 11-19-2022 Anion gap [Moles/Vol] 13 mmol/L 10 - 20 [facility] [place] [address] Work Phone: [phone] Calcium [Mass/Vol] 10.2 mg/dL 8.6 - 10.3 [facility] [address] Work Phone: [phone] Chloride [Moles/Vol] 103 mmol/L 98 - 107 [facility] [address] Work Phone: [phone] CO2 [Moles/Vol] 27 mmol/L 21 - 32 [facility] [address] Work Phone: [phone] Creatinine [Mass/Vol] 0.80 mg/dL See Below [facility] [address] Work Phone: [phone] Comment on above: Reference Range: 0.5 0 - 1.05 Glucose [Mass/Vol] 76 mg/dL 74 - 99 [facility] [address] Work Phone: [phone] Potassium [Moles/Vol] 3.5 mmol/L 3.5 - 5.3 [facility] [address] Work Phone: [phone] Sodium [Moles/Vol] 139 mmol/L 136 - 145 [facility] [address] Work Phone: [phone] Urea nitrogen [Mass/Vol] 18 mg/dL 6 - 23 [facility] [address] Work Phone: [phone] Lipase, Serumon 11-19-2022 Lipase [Catalytic activity/Vol] 19 U/L 9 - 82 [facility] [place] [address] Work Phone: [phone] Comment on above: Venipuncture immedia tely after or during the administration of Metamizole may lead to falsely low results. Testing should be performed immediately prior to Metamizole dosing. I-abqbbl-k-benzoquinone imine (metabolite of Acetaminophen) will generate erroneously low results in samples for patients that have taken toxic doses of acetaminophen. No Panel Informationon 11-19 Negative Negative [facility] [place] [address] Work Phone: Comment on above: SOURCE: Urine The AP MADI Trichomonas vaginalis assay is FDA-approved for testing on female endocervical swabs, vaginal swabs, and ThinPrep liquid pap samples. Performance characteristics for Trichomonas vaginalis on specific ziq-ZCV-dmivtohk sample types (female and male urine and male urethral swabs) have been validated by [facility]. This laboratory is certified by CLIA to perform high complexity testing. Samples from all other sites are not validated for this method.Performance characteristics for Trichomonas Vaginalis testing on urine samples has been validated by [facility]. Testing on this sample type is not FDA-approved, but such approval is not necessary. This laboratory is certified by CLIA to perform high complexity testing. >90 >90 [facility] [address] Work Phone: Comment on above: CALCULATIONS OF MCKENNA MATED GFR ARE PERFORMED USING THE 2020 CKD-EPI STUDY REFIT EQUATION WITHOUT THE RACE VARIABLE FOR THE IDMS-TRACEABLE CREATININE METHODS.https://jasn.asnjournals.org/content/early//A SN.0582051012 Provider Note - ED v3on 04- Provider Note - ED v3 Provider Note: Chart Review: ED NOTES ED NOTES: ====HPI==== Patient is a 27-year-old female who presents to the emergency department with a chief complaint of left lower abdominal pain. Patient states that for approximately 1 month she has what she believes to be symptoms of urinary tract infection. She states that she never formally had her urine tested but was called in multiple antibiotics. She states that she just finished an antibiotic yesterday. She states that her lower abdominal pain mainly on the left side is worse over the past week. She states that she was seen at urgent care and had a urinalysis performed and it was unremarkable. They recommended she be evaluated in the emergency department. Patient PMHX: Asthma Social HX: Denies TOBACCO Denies ETOH Denies DRUGS ====Review of Systems==== 10 point system review is negative except for those specifically mentioned in history of present illness ====Physical Exam==== Constitutional/General: Alert and oriented x3, well appearing, nontoxic, and in NAD. Head: Normocephalic and atraumatic. Eyes: PERRL, EOMI, conjunctive normal, sclera nonicteric, subconjunctival layer is pink. Mouth: Oropharynx clear, handling secretions, no trismus, no asymmetry of the posterior oropharynx or uvular edema Neck: Supple, full ROM, non tender to palpation in the midline, no stridor, no crepitus, no meningeal signs. Trachea at midline. Respiratory: Lungs clear to auscultation bilaterally, no wheezes, rales, or rhonchi, not in respiratory distress. Cardiovascular: Regular rate, regular rhythm, no murmurs, gallops, or rubs, 2+ distal pulses. Chest: normal chest wall movement GI: Abdomen soft, tenderness to the LLQ, no organomegaly, no palpable masses, no rebound, guarding, or rigidity. Musculoskeletal: Moves all extremities x4, warm and well perfused, no clubbing, cyanosis, or edema, cap refill <3 seconds Integument: Skin warm and dry, no rashes. Neurologic: GCS 15, no focal deficits, symmetric strength 5/5 in the upper and lower extremities bilaterally. Psychiatric: Normal affect. ====ED Course and Medical Decision Making==== See MDM section for review of findings & plan of care. Portions of this note were dictated by speech recognition. An attempt at proof reading was made to minimize errors. Minor errors in well driller helper may be present. Please call if questions.. HISTORY OF PRESENTING ILLNESS KM is a 27 year old Female and was seen by me at 19-Nov-2022 16:55 for a chief complaint of abdominal pain (Patient states she has had urinary tract infection symptoms for a month, has been treated multiple times with antibiotics, states she just finished them yesterday but is now having lower abdominal pain worse on the left one week, states I feel like I have to strain to pee.) . Triage Information: Most recent Vital Sign Value Date Temp (F): 97.9 11-19-2022 17:02 Temp (C): 36.6 11-19-2022 17:02 Heart Rate (beats/min): 94 11-19-2022 17:02 Respirations (breaths/min): 17 11-19-2022 17:02 SpO2 (%): 97 11-19-2022 17:02 BP Systolic (mm Hg): 134 11-19-2022 17:02 BP Diastolic (mm Hg): 87 11-19-2022 17:02 PAST MEDICAL HISTORY ALLERGIES/INTOLERANCES: Allergy Allergen: sulfa drugs Type: Drug Category Reaction: Wheezing HEALTH HISTORY: Medical History Name:Asthma Code:J45.909 OUTPATIENT MEDICATIONS: Home Medications Review Status for Reconciliation: Complete Med Status: Patient Currently Takes Medications Drug Name: pantoprazole 40 mg oral delayed release tablet Instructions: 1 tab(s) orally once a day Drug Name: BREO ELLIPTA 200-25 INH Instructions: 1 puff(s) inhaled once a day Drug Name: DULOXETINE HCL 20MG CAP Instructions: 1 cap(s) orally once a day Drug Name: montelukast 10 mg oral tablet Instructions: 1 tab(s) orally once a day (at bedtime) Drug Name: QUEtiapine Fumarate 25MG TAB Instructions: 1 tab(s) orally once a day (at bedtime) Drug Name: Pyridium 200 mg oral tablet Instructions: 1 tab(s) orally 3 times a day (after meals) SIGNIFICANT EVENTS: Infection Control Description:FATHER-HEART PROBLEMS Other Description:MOTHER-HPB Past Surgical History Description:Appendectomy Description:WISDOM TEETH Social/Behavioral Description:SOCIAL DRINKER Description:DENIES SMOKER CRITICAL CARE RESULTS: Recent Lab Results: I have reviewed these laboratory results: Hepatic Function Panel 19-Nov-2022 18:06:00 ResultValue Aspartate Transaminase, Serum 22 ALB 4.9 T Bili 0.6 Bilirubin, Serum Direct - Conjugated 0.1 ALKP 53 Alanine Aminotransferase, Serum 25 T Pro 7.6 Complete Blood Count + Differential 19-Nov-2022 18:06:00 ResultValue White Blood Cell Count 7.2 Red Blood Cell Count 4.74 HGB 14.1 HCT 40.8 MCV 86 MCHC 34.6 PLT 309 RDW-CV 11.4 L Neutrophil % 45.6 Immature G (more content not included)... Normal [facility] Risk Screen - Adult Emergenc yon 11-19-2022 Risk Screen - Adult Emergency Preferred Language: Preferred Language: Preferred Language for Discussing Health Care (patient/designee)Ivonne espinal Patient Preferred Pharmacy: Patient Preferred Pharmacy Statement: I have reviewed and updated the patient's preferred pharmacy selection for today's visit. Advanced Directives: Advance Directive/DNRno Family Violence Adult: Abuse Screen: Are you or have you been threatened or abused physically, emotionally, or sexually by anyoneno Learning Assessment (Patient): Learning Assessment (Patient): Patient is Able to be Assessed for Learningyes Factors Influencing Readiness to Learninterest in learning Factors that Impact Ability to Learnnone Devices/Methods Used to Communicatenone Learning Preferencesverbal instruction Cultural Considerationsnone Developmental Considerationsnone Muslim Considerationsnone Learning Assessment (Other Learner): Learning Assessment (Other Learner): Other learner availableno Pressure Injury/TB/Substance: Pressure Injury: Pressure Injury Present on Admissionno Do you have a coughno Smoking Statusnever smoker Alcohol Useoccasionally Drug Usedenies Admission Risk Screen: Significant IndicatorsComplete CAGE: CAGE: Is this an injured patient at a Trauma Center ([facility]/[place] /[place]): no Electronic Signatures: Carmen Silva (CATRINA) (Signed 19-Nov-2022 17:05) Authored: Preferred Language, Patient Preferred Pharmacy, Advanced Directives, Family Violence Adult, Learning Assessment (Patient), Learning Assessment (Other Learner), Pressure Injury/TB/Substance, Pressure Injury, CAGE Last Updated: 19-Nov-2022 17:05 by Carmen Silva (CATRINA) [facility] Triage - EDon 11-19-2022 Triage - ED Quick Triage: Are You no Have You Given In The Last 6 Weeksno Are You Currently Breastfeedingno Chart Review: PRIMARY ASSESSMENT KM HUNT's primary assessment is Within Defined Limits. The airway is open and patent. Breathing spontaneous and unlabored with clear breath sounds bilaterally. Circulation is normal with good peripheral pulses. Skin is warm and dry and color is normal for race. ARRIVAL INFORMATION Means of Arrival: Ambulatory Mode of Arrival: private vehicle Arrival From: home Accompanied By: self Language: Spoken Language Preferred: Danish CHIEF COMPLAINT KM HUNT is a Female patient with a chief complaint of abdominal pain (Patient states she has had urinary tract infection symptoms for a month, has been treated multiple times with antibiotics, states she just finished them yesterday but is now having lower abdominal pain worse on the left one week, states I feel like I have to strain to pee.). Triage Date/Time: 19-Nov-2022 16:49 JASWINDER: 3V Pain Rating (0-10): 6 = Moderate Vital Signs: Temperature: 97.9F ( 36.6C) taken temporal Blood Pressure: 134/87 Mean: Heart Rate: 94 Respiratory Rate: 17 Pulse Oximetry: 97% on room air, no respiratory support. Height: 5 feet 0.00 inches. 152.4 CM Weight: 116.8 pounds. Calculated 53.0 kg. (stated) Calculated BMI (kg/m2): 22.819 Calculated BSA (m2) 1.50 Darlyn Coma Scale: Best Eye Response: (E4) spontaneous Best Motor Response: (M6) obeys commands Best Verbal Response: (V5) oriented Hall[place]ord Score: 15 Allergies: yes Mask applied: yes Patient has homicidal thoughts: no Risk Screens Suicide Risk Screen In the Past Month: Have you wished you were or wished you could go to sleep and not wake up no In the Past Month: Have you had any actual thoughts of killing yourself no In Your Lifetime: Have you ever done anything, started to do anything, or prepared to do anything to end your life no Interventions: Mars Fall Interventions: LOW INTERVENTIONS: *patient oriented to surroundings and call system, * patient/family falls education completed and documented, *patients fall status communicated during bedside handoff, *whiteboard updated, *mode of toileting discussed with patient, *bed in low position with brakes locked, *call light in reach, * non-skid footwear TRAVEL HISTORY Travel History Coronavirus Screening: no exposure or symptoms Travel Exposure History: NO travel to International locations in the past 30 days PAIN Pain Scale Used: MALLIKA Pain Rating (0-10): 6 = Moderate Past Medical History: Past Medical History Reviewedyes Electronic Signatures: Carmen Silva (CATRINA) (Signed 19-Nov-2022 17:04) Entered: Risk Screens, Pain, Arrival, ABCD, Travel History, Chart Review, Scores, Past Medical History Authored: Quick Triage, Risk Screens, Pain, Arrival, ABCD, Travel History, Chart Review, Scores, Past Medical History Last Updated: 19-Nov-2022 17:04 by Carmen Silva (RN) Normal [facility] URINALYSIS WITH CULTURE IF I NDICATEDon 11-19-2022 Appearance (U) CLEAR Normal CLEAR [facility] Comment on above: Performed By: #### U ARFX #### [place] [address] Bilirubin Ql (U) Negative Normal NEGATIVE [facility] Comment on above: Performed By: #### U ARFX #### [place] [address] Color (U) Colorless Normal STRAW,YELLOW [facility] Comment on above: Performed By: #### U ARFX #### [place] [address] Glucose Ql (U) Negative Normal NEGATIVE [facility] Comment on above: Performed By: #### U ARFX #### [place] [address] Hemoglobin Ql (U) Negative Normal NEGATIVE [facility] Comment on above: Performed By: #### U ARFX #### [place] [address] Ketones Ql (U) 5(TRACE) Abnormal NEGATIVE [facility] Comment on above: Performed By: #### U ARFX #### [place] [address] Leukocyte esterase Test strip Ql (U) Negative Normal NEGATIVE [facility] Comment on above: Performed By: #### U ARFX #### [place] [address] Nitrite Ql (U) Negative Normal NEGATIVE [facility] Comment on above: Performed By: #### U ARFX #### [place] [address] pH (U) 7.0 [pH] Normal 5.0 - 8.0 [facility] Comment on above: Performed By: #### U ARFX #### [place] [address] Protein Ql (U) Negative Normal NEGATIVE [facility] Comment on above: Performed By: #### U ARFX #### [place] [address] Specific gravity (U) [Rel density] 1.004 Low 1.005 - 1.035 [facility] Comment on above: Performed By: #### U ARFX #### [address] [address] Urobilinogen (U) [Mass/Vol] mg/dL Normal 0.0 - 1.9 [facility] Comment on above: Performed By: #### U ARFX #### [address] [address] Color (U) Colorless See Below [facility] [address] Work Phone: [phone] Comment on above: Reference Range: STR AW,YELLOW Glucose Ql (U) Negative NEGATIVE [facility] [address] Work Phone: [phone] Ketones Ql (U) 5(TRACE) Abnormal NEGATIVE [facility] [address] Work Phone: [phone] Leukocyte esterase Test strip Ql (U) Negative NEGATIVE [facility] [address] Work Phone: [phone] pH (U) 7.0 [pH] 5.0 - 8.0 [facility] Work Phone: [phone] Protein (U) [Mass/Vol] Negative NEGATIVE [facility] [address] Work Phone: [phone] RBC (U) [#/Vol] Negative NEGATIVE [facility] Work Phone: [phone] Specific gravity (U) [Rel density] 1.004 1 below low threshold See Below [facility] [address] Work Phone: [phone] Comment on above: Reference Range: 1.0 05 - 1.035 URINALYSIS WITH CULTURE IF INDICATED Negative NEGATIVE [facility] [address] Work Phone: [phone] URINALYSIS WITH CULTURE IF INDICATED <2.0 0.0 - 1.9 [facility] [address] Work Phone: [phone] URINALYSIS WITH CULTURE IF INDICATED CLEAR CLEAR [facility] [address] Work Phone: [phone] Urine Teston 11-19 HCG ( test) Ql (U) Negative Negative [facility] [address] Work Phone: CORONAVIRUS 2019 BY PCRon SARS-CoV-2 (COVID-19) RNA SHANAE+probe Ql (Unsp spec) Not detected Normal Not Detected [facility] Comment on above: Result Comment: . This assay is designed to detect the ORF1a/b and E genes of SARS-CoV-2 via nucleic acid amplification. A Not Detected result does not preclude 2019-nCoV infection since the adequacy of sample collection and/or low viral burden may result in presence of viral nucleic acids below the clinical sensitivity of this test method. Fact sheet for providers: https://www.fda.gov/media/157858/download Fact sheet for patients: https://www.fda.gov/media/933280/download This test has received FDA Emergency Use Authorization (EUA) and has been verified for use by [facility] ([facility]). This test is only authorized for the duration of time that circumstances exist to justify the authorization of the emergency use of in vitro diagnostic tests for the detection of SARS-CoV-2 virus and/or diagnosis of COVID-19 infection under section 564(b)(1) of the Act, 21 U.S.C. 360bbb-3(b)(1), unless the authorization is terminated or revoked sooner. [facility] is certified under CLIA-88 as qualified to perform high complexity testing. Testing is performed in the [facility] laboratories located at [address] [place] [address]. Performed By: #### C OV19 #### [address] [place] [address] GROUP A STREP,PCRon 11-02-19 GROUP A STREP,PCR Not detected Normal Not Detected [facility] Comment on above: Result Comment: This test and its performance have been Validated by [facility] Laboratory using analyte specific reagents (ASR). It has not been cleared or approved by the U.S. Food and Drug Administration. The FDA has determined that such clearance or approval is not necessary. Performed By: #### G APC1 #### [facility] [address] [place] [address] CORONAVIRUS 2019 BY PCRon Lab Specimen Source Nasal, Nasopharyngeal Normal [facility] Comment on above: Performed By: #### C OV19 #### [facility] [address] [place] [address] Coronavirus 2019 RNA by PCR, Symptomaticon 10-31-2022 Coronavirus 2019 RNA by PCR, Symptomatic Not detected Normal See Below [facility] [address] Work Phone: Comment on above: SOURCE: Nasal, Nasop haryngealReference Range: Not Detected.This assay is designed to detect the ORF1a/b and E genes of SARS-CoV-2 via nucleic acid amplification. A Not Detected result does not preclude 2019-nCoV infection since the adequacy of sample collection and/or low viral burden may result in presence of viral nucleic acids below the clinical sensitivity of this test method. Fact sheet for providers: https://www.fda.gov/media/567134/download Fact sheet for patients: https://www.fda.gov/media/600561/download This test has received FDA Emergency Use Authorization (EUA) and has been verified for use by [facility] ([facility]). This test is only authorized for the duration of time that circumstances exist to justify the authorization of the emergency use of in vitro diagnostic tests for the detection of SARS-CoV-2 virus and/or diagnosis of COVID-19 infection under section 564(b)(1) of the Act, 21 U.S.C. 360bbb-3(b)(1), unless the authorization is terminated or revoked sooner.[facility] is certified under CLIA-88 as qualified to perform high complexity testing. Testing is performed in the [facility] laboratories located at [address] [id number]. GROUP A STREP, PCRon 023 S. pyogenes Ag Ql (Throat) Not detected See Below [facility] [address] Work Phone: Comment on above: SOURCE: ThroatRefere nce Range: Not Detected This test and its performance have been Validated by [facility] Laboratory using analyte specific reagents (ASR). It has not been cleared or approved by the U.S. Food and Drug Administration. The FDA has determined that such clearance or approval is not necessary. GROUP A STREP,PCRon 11-01-19 23 Lab Specimen Source Throat Normal [facility] Comment on above: Performed By: #### G APC1 #### [facility] [address] [place] [address] Provider Note - ED v3on 040 Provider Note - ED v3 Provider Note: Chart Review: HISTORY OF PRESENTING ILLNESS KM is a 27 year old Female and was seen by me at 31-Oct-2022 09:30. The historian is the patient. Triage Information: Most recent Vital Sign Value Date PAST MEDICAL HISTORY ALLERGIES/INTOLERANCES: Allergy Allergen: sulfa drugs Type: Drug Category Reaction: Wheezing HEALTH HISTORY: Medical History Name:Asthma Code:J45.909 Also has history of GERD, allergies, and anxiety/depression. Family history: No pertinent history. 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 OUTPATIENT MEDICATIONS: Home Medications Review Status for Reconciliation: Complete Med Status: Patient Currently Takes Medications Drug Name: albuterol 0.63 mg/3 mL (0.021%) inhalation solution Instructions: 3 milliliter(s) inhaled 3 times a day Drug Name: Singulair 4 mg oral granule Instructions: 1 each orally once a day Drug Name: Symbicort Instructions: 1 inhaler(s) inhaled once a day, As Needed Drug Name: pantoprazole 40 mg oral delayed release tablet Instructions: 1 tab(s) orally once a day SIGNIFICANT EVENTS: Infection Control Description:FATHER-HEART PROBLEMS Other Description:MOTHER-HPB Past Surgical History Description:Appendectomy Description:WISDOM TEETH Social/Behavioral Description:SOCIAL DRINKER Description:DENIES SMOKER CRITICAL CARE VITAL SIGNS: T PRBP SpO2O2(LPM) %FiO2 Method 31-Oct-2022 08:57:[id number] 98 MDM MDM/ED COURSE: This note was generated with voice recognition software and may contain errors including spelling, grammar, syntax, and misrecognization of what was dictated CHIEF COMPLAINT sore throat, fever/chills, cold symptoms HISTORY OF PRESENT ILLNESS Patient presents today for evaluation of a sore throat x3-4 days. Reports she has also had subjective fever/chills, body aches, headaches, bilat ear pain, nasal congestion (clear to yellow mucus), and a mild, productive cough (unsure of color of phlegm). Has intermittent, mild nausea. She reports has occasional wheezing but no increase in frequency/severity from baseline - has history of asthma and does not feel it is currently flared. She denies any abdominal pain, back pain, chest pain, shortness of breath, rashes, vomiting, and diarrhea. She has mild dysuria/frequency - started treatment for a UTI (Macrobid) after she was seen at a different facility yesterday - she reports sxs do seem like they are improving. Denies any lightheadedness or dizziness; no changes in mental status. No swelling in legs. Appetite is poor but is able to drink fluids without difficulty; denies any loss of sense of taste/smell. Reports feels like cold symptoms are waxing and waning since onset. Has been taking Tylenol with some relief; no other ximk-wsr-dktlqie medications or home remedies for symptom management. 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 Has not received the COVID-19 vaccine or this year's flu vaccine; had COVID infection ~2 years ago. Is not a smoker. REVIEW OF SYSTEMS 10 systems reviewed negative with exception of history of present illness listed above PHYSICAL EXAMINATION General: Mildly ill-appearing, well nourished female; alert and oriented; in no acute distress. Sitting comfortably on exam table. Non-dyspneic. Eyes: Pupils equal, round and reactive to light. No conjunctival erythema; no scleral icterus. HENT: No frontal or maxillary sinus tenderness; + audible nasal congestion. Airway patent. L TM occluded by cerumen (no tenderness with manipulation of tragus/pinna or over mastoid); R TM with mild cloudy fluid but not retracted/bulging, and no erythma. R ear canal unremarkable. Nasal mucosa mildly injected and edematous. Oral mucosa moist. Posterior pharynx mildly injected but without vesicles or oropharyngeal exudate aside from PND. Uvula is midline. Managing oral secretions without difficulty. Neck: Supple. Mildly tender, mobile anterior cervical lymphadenopathy bilat. Trachea is midline. Respiratory: Respirations easy and unlabored, Breath sounds equal. Lungs are clear to auscultation; no wheezes, rhonchi, or rales; has good air movement throughout. + mild, productive cough noted. Non-dyspneic with ambulation; able to maintain SpO2. Cardiovascular: Normal rate, Regular rhythm. Normal S1S2. No m/r/g. No peripheral edema. Gastrointestinal: Soft, non-tender, non-distended; no palpable masses or organomegaly. Bowel sounds normoactive. No CVA tenderness. Musculoskeletal: Grossly normal; appropriate for age. Integumentary: [place], warm, dry, and intact. No rashes or skin discoloration appreciated. Good skin turgor. Neurologic: Alert and oriented, no gross deficits. Cognition and Speech: Oriented, Speech clear and coherent. Psychiatric: Cooperative, Appropriate mood & affect. MEDICA (more content not included)... Normal [facility] Office Visit (Internal Medic ine)on 09-21-2022 Follow-up visit Diagnoses/Problems Assessed Anxiety and depression (300.00,311) (F41.9,F32.A) Orders Anxiety and depression Start: Venlafaxine HCl - 37.5 MG Oral Tablet; take one tab po daily x1 week take one tab po bid thereafter Rx By: Sukh Pollock; Dispense: 0 Days ; #:60 Tablet; Refill: 1;For: Anxiety and depression; JAREK = N; Verified Transmission to [place] [address]; Last Updated By: Inna [employer]; 09/21/2022 2:56:11 PM Asthma Renew: Levalbuterol Tartrate 45 MCG/ACT Inhalation Aerosol; TAKE 1 PUFF BY MOUTH EVERY 4 HOURS NEEDED Rx By: Sukh Pollock; Dispense: 0 Days ; #:1 X 15 GM Inhaler; Refill: 3;For: Asthma; JAREK = N; Sent To: [id number]; Last Updated By: Dejan Strange; 09/21/2022 2:51:28 PM Seasonal allergies Renew: Montelukast Sodium 10 MG Oral Tablet; take 1 tablet by mouth at bedtime Rx By: Sukh Pollock; Dispense: 30 Days ; #:30 Tablet; Refill: 5;For: Seasonal allergies; JAREK = N; [facility]; Last Updated By: LEID [employer]YouNoodle; 09/21/2022 2:56:13 PM Patient Discussion/Summary Anxiety and depression: We will try Effexor at upward titrating dose. Follow-up in 6 weeks. Patient encouraged to contact office if this is not tolerated. Chief Complaint Patient here today to discuss medications for anxiety and depression. Currently not taking any medications x July and wants to restart. History of Present IllnessPatient presents to revisit treating anxiety depression. So far, patient has had allergic reactions to Prozac, Zoloft, and Wellbutrin. Patient was happy however with the effects of Wellbutrin while taking it. Patient broke out in full body hives after having taken it for a few weeks. Patient reports profound depression, anxiety, lack of jammie, lack of interest, social anxiety and general sadness. Review of Systems Constitutional: as noted in HPI. Psychiatric: as noted in HPI. Active Problems Problems Anxiety and depression (300.00,311) (F41.9,F32.A) Asthma (493.90) (J45.909) Candidiasis of vagina (112.1) (B37.31) Chronic GERD (530.81) (K21.9) Deep dyspareunia in female (625.0) (N94.12) Idiopathic urticaria (708.1) (L50.1) Irritable bowel syndrome with predominant constipation (564.1) (K58.1) Panic attacks (300.01) (F41.0) Pelvic pain in female (625.9) (R10.2) Psychophysiological insomnia (307.42) (F51.04) Seasonal allergies (477.9) (J30.2) Severe persistent asthma, unspecified whether complicated (493.90) (J45.50) UTI (urinary tract infection) (599.0) (N39.0) Past Medical History Problems History of Abnormal CT scan, sigmoid colon (793.4) (R93.3) Resolved Date: 31 Dec 2021 History of Asthma exacerbation (493.92) (J45.901) Resolved Date: 31 Dec 2021 History of Constipation, acute (564.00) (K59.00) Resolved Date: 31 Dec 2021 History of Esophageal dysphagia (787.29) (R13.19) Resolved Date: 22 Apr 2022 History of Exacerbation of asthma (493.92) (J45.901) Resolved Date: 22 Apr 2022 History of Flu-like symptoms (780.99) (R68.89) Resolved Date: 31 Dec 2021 History of abdominal pain (V13.89) (Z87.898) Resolved Date: 24 Jun 2021 History of acute sinusitis (V12.69) (Z87.09) Resolved Date: 24 Jun 2021 History of nausea and vomiting (V12.79) (Z87.898) Resolved Date: 31 Dec 2021 History of urinary tract infection (V13.02) (Z87.440) Resolved Date: 31 Dec 2021 History of Menstruation age 12 History of Other constipation (564.09) (K59.09) Resolved Date: 24 Jun 2021 History of Screening for cervical cancer (V76.2) (Z12.4) Resolved Date: 22 Apr 2022 History of Screening for STD (sexually transmitted disease) (V74.5) (Z11.3) Resolved Date: 22 Apr 2022 Surgical History Problems History of Appendectomy 2019 Family History Mother Family history of Cervical carcinoma Family history of depression (V17.0) (Z81.8) Family history of diabetes mellitus (V18.0) (Z83.3) Family history of hypertension (V17.49) (Z82.49) Family history of malignant neoplasm (V16.9) (Z80.9) Family history of malignant neoplasm of thyroid (V16.8) (Z80.8) Family history of migraine headaches (V17.2) (Z82.0) Father Family history of asthma (V17.5) (Z82.5) Family history of depression (V17.0) (Z81.8) Family history of hypertension (V17.49) (Z82.49) Family history of migraine headaches (V17.2) (Z82.0) Family history of sleep apnea (V19.8) (Z82.0) Family history of Irregular heart beat Sister Family history of asthma (V17.5) (Z82.5) Brother Family history of depression (V17.0) (Z81.8) Social History Problems Consumes alcohol occasionally (V49.89) (Z78.9) Daily caffeine consumption Does not use illicit drugs (V49.89) (Z78.9) Never smoker Allergies Medication Sulfa Drugs Hives;; Recorded By: Mike Del Real; 09/01/2019 11:39:25 AM Serotonin Reuptake Inhibitors Recorded By: Dejan Strange; 05/25/2022 1:47:42 PM Current Meds Medication NameInstruction Breo Ellipta 200-25 MCG/INH AEPBINHA (more content not included)... Normal [employer] Tobacco Screening.on 023 Adult depression screening assessment Yes [facility] Work Phone: Fall risk assessment a) No falls within the last year [facility] Work Phone: [phone] Tobacco use status [facility] b) No [facility] Work Phone: [phone] Office Visit (Internal Medic ine)on 07-02-2022 Follow-up visit Diagnoses/Problems Assessed Anxiety and depression (300.00,311) (F41.9,F32.A) Idiopathic urticaria (708.1) (L50.1) Candidiasis of vagina (112.1) (B37.31) Orders Anxiety and depression Start: buPROPion HCl ER (SR) 150 MG Oral Tablet Extended Release 12 Hour; Take 1 tablet twice daily Rx By: Sukh Pollock; Dispense: 30 Days ; #:60 Tablet; Refill: 11; For: Anxiety and depression; JAREK = N; Verified Transmission to [place] [address]; Last Updated By: [employer]; 07/02/2022 8:39:04 AM Candidiasis of vagina Start: Fluconazole 150 MG Oral Tablet; TAKE 1 TABLET 1 TIME ONLY Rx By: Sukh Pollock; Dispense: 0 Days ; #:1 Tablet; Refill: 1; For: Candidiasis of vagina; JAREK = N; [facility] Idiopathic urticaria Start: Famotidine 20 MG Oral Tablet (Pepcid); TAKE 1 TABLET EVERY 12 HOURS DAILY Rx By: Sukh Pollock; Dispense: 7 Days ; #:14 Tablet; Refill: 1; For: Idiopathic urticaria; JAREK = N; Verified Transmission to [place] [address]; Last Updated By: Nicole Keith; 07/02/2022 8:39:03 AM Start: predniSONE 20 MG Oral Tablet; TAKE 1 TABLET TWICE DAILY Rx By: Sukh Pollock; Dispense: 7 Days ; #:14 Tablet; Refill: 1; For: Idiopathic urticaria; JAREK = N; Verified Transmission to [facility]; Last Updated By: Nicole Keith; 07/02/2022 8:39:04 AM Administer: methylPREDNISolone Sodium Succ 125 MG Injection Solution Reconstituted (SOLU-Medrol); INJECT 1 MG Intramuscular once; To Be Done: 02Jul2022 Rx By: Sukh Pollock; For: Idiopathic urticaria; JAREK = N; Request Administration Patient Discussion/Summary Anxiety and depression: We will split the dose into 2 SR Wellbutrin daily. Follow-up in 6 months Idiopathic urticaria: Etiology unclear. IM Solu-Medrol in office. Prednisone and Pepcid called in. Chief Complaint Patient here today to be seen for follow up 1 month. Patient sates the Bupropion is working well besides noticing RAMÍREZ on top of her head. Patient also having hives with itching all over x 3 days, patient has been taking OTC Benadryl and took Prednisone last night. Solu-Medrol 125 mg/2mL gvien right deltoid IM without incident by JASON Saravia, patient tolerated well and offered no complaints. LOT# [id number] EXP 09/2022 [facility] [id number] 1 Amended By: Dejan Strange; Jul 02 2022 8:46 AM ESTHistory of Present IllnessPatient presents in 1 month follow-up of Wellbutrin therapy. Patient reports good results of anxiety management. Patient reports a drop off in efficacy the mid afternoon causing a mild headache. Otherwise, patient is doing quite well. Patient also reports hives. Patient states that 2 days ago small erythematous, blanchable, pruritic outbreaks on the bilateral medial thighs eventually worsened to include the trunk, neck, and arms. Patient took Benadryl with some improvement. Patient admittedly has not been taking Singulair over the past several days. No other complaints. Review of Systems Constitutional: as noted in HPI. Skin: as noted in HPI. Psychiatric: as noted in HPI. Active Problems Problems Anxiety and depression (300.00,311) (F41.9,F32.A) Asthma (493.90) (J45.909) Candidiasis of vagina (112.1) (B37.31) Chronic GERD (530.81) (K21.9) Deep dyspareunia in female (625.0) (N94.12) Irritable bowel syndrome with predominant constipation (564.1) (K58.1) Panic attacks (300.01) (F41.0) Pelvic pain in female (625.9) (R10.2) Psychophysiological insomnia (307.42) (F51.04) Seasonal allergies (477.9) (J30.2) Severe persistent asthma, unspecified whether complicated (493.90) (J45.50) UTI (urinary tract infection) (599.0) (N39.0) Past Medical History Problems History of Abnormal CT scan, sigmoid colon (793.4) (R93.3) Resolved Date: 31 Dec 2021 History of Asthma exacerbation (493.92) (J45.901) Resolved Date: 31 Dec 2021 History of Constipation, acute (564.00) (K59.00) Resolved Date: 31 Dec 2021 History of Esophageal dysphagia (787.29) (R13.19) Resolved Date: 22 Apr 2022 History of Exacerbation of asthma (493.92) (J45.901) Resolved Date: 22 Apr 2022 History of Flu-like symptoms (780.99) (R68.89) Resolved Date: 31 Dec 2021 History of abdominal pain (V13.89) (Z87.898) Resolved Date: 24 Jun 2021 History of acute sinusitis (V12.69) (Z87.09) Resolved Date: 24 Jun 2021 History of nausea and vomiting (V12.79) (Z87.898) Resolved Date: 31 Dec 2021 History of urinary tract infection (V13.02) (Z87.440) Resolved Date: 31 Dec 2021 History of Menstruation age 12 History of Other constipation (564.09) (K59.09) Resolved Date: 24 Jun 2021 History of Screening for cervical cancer (V76.2) (Z12.4) Resolved Date: 22 Apr 2022 History of Screening for STD (sexually transmitted disease) (V74.5) (Z11.3) Resolved Date: 22 Apr 2022 Surgical History Problems History of Appendectomy 2018 Family History Mother Family history of Cervical carcinoma Family history of depression (V17.0) (Z81.8) Family h (more content not included)... [facility] (Internal Medic ine)on 05-21-2022 Follow-up visit Diagnoses/Problems Assessed Anxiety and depression (300.00,311) (F41.9,F32.A) Panic attacks (300.01) (F41.0) Orders Panic attacks Start: Sertraline HCl - 50 MG Oral Tablet; take 1 tablet by mouth once daily Rx By: Sukh Pollock; Dispense: 30 Days ; #:30 Tablet; Refill: 11;For: Panic attacks; JAREK = N; Verified Transmission to [facility]; Last Updated By: SystemYouNoodle; 05/21/2022 4:39:06 PM Patient Discussion/Summary Anxiety and depression with panic attacks: Stop Prozac, start Zoloft 50 mg daily. Follow-up in 6 weeks. Patient advised that should facial flushing and headaches continue, contact office immediately and we will switch out of this class of medicines. Chief Complaint Patient here today for follow up 1 month and offers no complaints. Patient has not taken the Trazodone, waiting to take it on a weekend that is free. Patient states she has not had to take Alprazolam. History of Present IllnessPatient presents in follow-up of treatment of anxiety, depression, and panic attacks. Patient states that initial effects of the Prozac were good but did wane after a week or 2. Patient however reports facial flushing and headaches nearly every day after starting the medication. Patient did not have a panic attack since starting the medicine. Patient noticed that it was easier to complete work and deal with adverse situations. Review of Systems Skin: as noted in HPI. Psychiatric: as noted in HPI. Active Problems Problems Anxiety and depression (300.00,311) (F41.9,F32.A) Asthma (493.90) (J45.909) Chronic GERD (530.81) (K21.9) Deep dyspareunia in female (625.0) (N94.12) Irritable bowel syndrome with predominant constipation (564.1) (K58.1) Panic attacks (300.01) (F41.0) Pelvic pain in female (625.9) (R10.2) Psychophysiological insomnia (307.42) (F51.04) Seasonal allergies (477.9) (J30.2) Severe persistent asthma, unspecified whether complicated (493.90) (J45.50) Past Medical History Problems History of Abnormal CT scan, sigmoid colon (793.4) (R93.3) Resolved Date: 31 Dec 2021 History of Asthma exacerbation (493.92) (J45.901) Resolved Date: 31 Dec 2021 History of Constipation, acute (564.00) (K59.00) Resolved Date: 31 Dec 2021 History of Esophageal dysphagia (787.29) (R13.19) Resolved Date: 22 Apr 2022 History of Exacerbation of asthma (493.92) (J45.901) Resolved Date: 22 Apr 2022 History of Flu-like symptoms (780.99) (R68.89) Resolved Date: 31 Dec 2021 History of abdominal pain (V13.89) (Z87.898) Resolved Date: 24 Jun 2021 History of acute sinusitis (V12.69) (Z87.09) Resolved Date: 24 Jun 2021 History of candidiasis of vagina (V12.09) (Z86.19) History of nausea and vomiting (V12.79) (Z87.898) Resolved Date: 31 Dec 2021 History of urinary tract infection (V13.02) (Z87.440) Resolved Date: 31 Dec 2021 History of Menstruation age 12 History of Other constipation (564.09) (K59.09) Resolved Date: 24 Jun 2021 History of Screening for cervical cancer (V76.2) (Z12.4) Resolved Date: 22 Apr 2022 History of Screening for STD (sexually transmitted disease) (V74.5) (Z11.3) Resolved Date: 22 Apr 2022 Surgical History Problems History of Appendectomy 2019 Family History Mother Family history of Cervical carcinoma Family history of depression (V17.0) (Z81.8) Family history of diabetes mellitus (V18.0) (Z83.3) Family history of hypertension (V17.49) (Z82.49) Family history of malignant neoplasm (V16.9) (Z80.9) Family history of malignant neoplasm of thyroid (V16.8) (Z80.8) Family history of migraine headaches (V17.2) (Z82.0) Father Family history of asthma (V17.5) (Z82.5) Family history of depression (V17.0) (Z81.8) Family history of hypertension (V17.49) (Z82.49) Family history of migraine headaches (V17.2) (Z82.0) Family history of sleep apnea (V19.8) (Z82.0) Family history of Irregular heart beat Sister Family history of asthma (V17.5) (Z82.5) Brother Family history of depression (V17.0) (Z81.8) Social History Problems Consumes alcohol occasionally (V49.89) (Z78.9) Daily caffeine consumption Does not use illicit drugs (V49.89) (Z78.9) Never smoker Allergies Medication Sulfa Drugs Hives;; Recorded By: Mike Del Real; 09/01/2019 11:39:25 AM Current Meds Medication NameInstruction ALPRAZolam 1 MG Oral Tablet1/2 or 1 tab bid prn panick attacks Breo Ellipta 200-25 MCG/INH AEPBINHALE 1 PUFFS Daily Claritin 10 MG Oral Tablet Levalbuterol HCl - 1.25 MG/3ML Inhalation Nebulization SolutionUSE 1 UNIT DOSE IN NEBULIZER EVERY 4 TO 6 HOURS NEEDED. Levalbuterol Tartrate 45 MCG/ACT Inhalation AerosolTAKE 1 PUFF BY MOUTH EVERY 4 HOURS NEEDED Montelukast Sodium 10 MG Oral Tablettake 1 tablet by mouth at bedtime Pantoprazole Sodium 40 MG Oral Tablet Delayed ReleaseTAKE 1 TABLET BY MOUTH EVERY DAY traZODone HCl - 50 MG Oral Tablettake 1/2 or 1 tablet qhs for insomnia Vitals Vital Signs Recorded: 21May2022 04:2 (more content not included)... Normal [facility] Tobacco Screening.on 022 Adult depression screening assessment No [facility] Work Phone: Fall risk assessment a) No falls within the last year [facility] Work Phone: Tobacco use status [facility] a) Yes [facility] Work Phone: Office Visit (Internal Medic ine)on 04-22-2022 Follow-up visit Diagnoses/Problems Assessed Anxiety and depression (300.00,311) (F41.9,F32.A) Panic attacks (300.01) (F41.0) Psychophysiological insomnia (307.42) (F51.04) Orders Anxiety and depression Start: FLUoxetine HCl - 10 MG Oral Tablet; TAKE 1 TABLET DAILY Rx By: Sukh Pollock; Dispense: 30 Days ; #:30 Tablet; Refill: 11;For: Anxiety and depression; JAREK = N; Verified Transmission to [facility]; Last Updated By: THE [employer]; 04/22/2022 4:57:42 PM Panic attacks Start: ALPRAZolam 1 MG Oral Tablet; 1/2 or 1 tab bid prn panick attacks Rx By: Sukh Pollock; Dispense: 5 Days ; #:10 Tablet; Refill: 0;For: Panic attacks; JAREK = N; Verified Transmission to [facility]; Msg to Pharmacy: F41.0; Last Updated By: THE [employer]; 04/22/2022 4:57:26 PM Psychophysiological insomnia Start: traZODone HCl - 50 MG Oral Tablet; take 1/2 or 1 tablet qhs for insomnia Rx By: Sukh Pollock; Dispense: 0 Days ; #:30 Tablet; Refill: 5;For: Psychophysiological insomnia; JAREK = N; Verified Transmission to [facility]; Last Updated By: THE [employer]; 04/22/2022 4:57:33 PM Patient Discussion/Summary Anxiety and depression: Treatment options reviewed. Start with low-dose Prozac, 10 mg daily. Follow-up in 1 month Panic attacks: Ativan 1/2 or 1 tab as needed. Patient advised of the abuse potential. OARRS reviewed, appropriate, and consistent with provided history. Patient advised to avoid any meaningful activity after taking 1 of these. Insomnia: Trazodone 50 mg one half or 1 tab as needed insomnia Patient is advised that after this is well managed, will make referral to [facility] for psychology/counseling. Patient agreed. Chief Complaint Patient here today to discuss anxiety. Patient states in the last month has had 3 panic attacks. History of Present IllnessPatient presents for discussion of possible depression, anxiety, and insomnia. Patient reports having at least 3 panic attacks in the last month and with some regularity over the past 1-2 years. Patient becomes short of breath, there is chest pressure, some dizziness, crying, and nauseous when they occur. There are seemingly small triggers including thinking about going to the store or being in social situations. 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 Patient reports the parents are difficult to deal with. Admittedly though, patient states that this is likely been present for many years prior. There is also an element of depression with emotional instability, unprovoked crying spells, and intermittent lack of jammie. No suicidal ideation. Previously, patient was attempting home remedies with some success. Patient states though that they become less successful over time. Additionally, patient reports difficulty falling and staying asleep. Patient is attempted several htok-iuv-[id number] remedies without improvement. Patient states there is a family history of this with fairly severe case of this with her father. Patient denies any traumatic precipitating event. Review of Systems Constitutional: as noted in HPI. Gastrointestinal: as noted in HPI. Psychiatric: as noted in HPI. Active Problems Problems Asthma (493.90) (J45.909) Chronic GERD (530.81) (K21.9) Deep dyspareunia in female (625.0) (N94.12) Irritable bowel syndrome with predominant constipation (564.1) (K58.1) Pelvic pain in female (625.9) (R10.2) Seasonal allergies (477.9) (J30.2) Severe persistent asthma, unspecified whether complicated (493.90) (J45.50) Past Medical History Problems History of Abnormal CT scan, sigmoid colon (793.4) (R93.3) Resolved Date: 31 Dec 2021 History of Asthma exacerbation (493.92) (J45.901) Resolved Date: 31 Dec 2021 History of Constipation, acute (564.00) (K59.00) Resolved Date: 31 Dec 2021 History of Esophageal dysphagia (787.29) (R13.19) History of Exacerbation of asthma (493.92) (J45.901) History of Flu-like symptoms (780.99) (R68.89) Resolved Date: 31 Dec 2021 History of abdominal pain (V13.89) (Z87.898) Resolved Date: 24 Jun 2021 History of acute sinusitis (V12.69) (Z87.09) Resolved Date: 24 Jun 2021 History of candidiasis of vagina (V12.09) (Z86.19) History of nausea and vomiting (V12.79) (Z87.898) Resolved Date: 31 Dec 2021 History of urinary tract infection (V13.02) (Z87.440) Resolved Date: 31 Dec 2021 History of Menstruation age 12 History of Other constipation (564.09) (K59.09) Resolved Date: 24 Jun 2021 History of Screening for cervical cancer (V76.2) (Z12.4) History of Screening for STD (sexually transmitted disease) (V74.5) (Z11.3) Surgical History Problems History of Appendectomy 2019 Family History Mother Family history of Cervical carcinoma Family history of depression (V17.0) (Z81.8) Family history of diabetes mellitus (V18.0) (Z83.3) Family history of hypertension (V17.49) (Z82.49) Family history of malignant neoplasm (V16.9) (Z80 (more content not included)... [facility] Screening.on 022 Adult depression screening assessment No [facility] Work Phone: [phone] Fall risk assessment a) No falls within the last year [facility] Work Phone: [phone] Tobacco use status [facility] b) No [facility] Work Phone: Tobacco Screening.on 022 Fall risk assessment a) No falls within the last year [facility] [facility] Work Phone: [phone] Tobacco use status [facility] b) No [facility]: [phone] Complete Blood Count + Diffe rentialon 01-28-2022 Basophils/100 WBC (Bld) 0.4 % 0.0 - 2.0 [facility] [address] DO Work Phone: [phone] Erythrocyte distribution width (RBC) [Ratio] 12.8 % See Below [facility] [facility] DO Work Phone: [phone] Comment on above: Reference Range: 11. 5 - 14.5 Hematocrit (Bld) [Volume fraction] 39.9 % See Below [facility] [facility] DO Work Phone: [phone] Comment on above: Reference Range: 36. 0 - 46.0 Hemoglobin (Bld) [Mass/Vol] 14.2 g/dL See Below [facility] [facility] DO Work Phone: [phone] Comment on above: Reference Range: 12. 0 - 16.0 Lymphocytes/100 WBC (Bld) 31.6 % See Below [facility] [facility] DO Work Phone: [phone] Comment on above: Reference Range: 13. 0 - 44.0 MCHC (RBC) [Mass/Vol] 35.6 g/dL See Below [facility] [facility] DO Work Phone: [phone] Comment on above: Reference Range: 32. 0 - 36.0 MCV (RBC) [Entitic vol] 88 fL 80 - 100 [facility] [address] DO Work Phone: [phone] Monocytes/100 WBC (Bld) 5.7 % 2.0 - 10.0 [facility] [address] DO Work Phone: [phone] Neutrophils/100 WBC (Bld) 60.0 % See Below [facility] [address] DO Work Phone: [phone] Comment on above: Reference Range: 40. 0 - 80.0 Platelets (Bld) [#/Vol] 184 10*3/uL 150 - 450 [facility] [address] DO Work Phone: [phone] RBC (Bld) [#/Vol] 4.56 {x10E12/L} See Below [facility] [facility] DO Work Phone: [phone] Comment on above: Reference Range: 4.0 0 - 5.20 WBC (Bld) [#/Vol] 7.2 10*3/uL 4.4 - 11.3 [facility] [address] DO Work Phone: [phone] Complete Blood Count + Differential 0.00 {x10E9/L} See Below [facility] [address] DO Work Phone: [phone] Comment on above: Reference Range: 0.0 0 - 0.10 Complete Blood Count + Differential 0.20 {x10E9/L} See Below [facility] [address] DO Work Phone: [phone] Comment on above: Reference Range: 0.0 0 - 0.70 Complete Blood Count + Differential 0.40 {x10E9/L} See Below [facility] [address] DO Work Phone: [phone] Comment on above: Reference Range: 0.1 0 - 1.00 Complete Blood Count + Differential 2.30 {x10E9/L} See Below [facility] [address] DO Work Phone: [phone] Comment on above: Reference Range: 1.2 0 - 4.80 Complete Blood Count + Differential 4.30 {x10E9/L} See Below [facility] [address] DO Work Phone: [phone] Comment on above: Reference Range: 1.2 0 - 7.70 Percent differential counts (%) should be interpreted in the context of the absolute cell counts (cells/L). Complete Blood Count + Differential 2.3 % 0.0 - 6.0 [facility] [facility] DO Work Phone: [phone] Complete Blood Count + Differential 0.1 {/100_WBC} [facility] [facility] DO Work Phone: [phone] Laboratory - Allergyon 01-28 A. alternata IgE Qn (S) <0.10 <0.35 [facility] [facility] DO Work Phone: [phone] Comment on above: SEE IMMUNOCAP INTERP .IGE A. fumigatus IgE Qn (S) <0.10 <0.35 [facility] [address] DO Work Phone: [phone] Comment on above: SEE IMMUNOCAP INTERP .IGE Austrian house dust mite IgE Qn (S) 4.41 {KU/L} Abnormal <0.35 [facility] [address] DO Work Phone: [phone] Comment on above: SEE IMMUNOCAP INTERP .IGE [place] IgE Qn (S) <0.10 <0.35 [facility] [address] DO Work Phone: [phone] Comment on above: SEE IMMUNOCAP INTERP .IGE [place] grass IgE Qn (S) 0.10 {KU/L} <0.35 [facility] [address] DO Work Phone: [phone] Comment on above: SEE IMMUNOCAP INTERP .IGE Boxelder IgE Qn (S) <0.10 <0.35 [facility] [address] DO Work Phone: [phone] Comment on above: SEE IMMUNOCAP INTERP .IGE C. herbarum IgE Qn (S) <0.10 <0.35 [facility] [address] DO Work Phone: [phone] Comment on above: SEE IMMUNOCAP INTERP .IGE [place] IgE Qn (S) <0.10 <0.35 [facility] [address] DO Work Phone: [phone] Comment on above: SEE IMMUNOCAP INTERP .IGE Cat dander IgE Qn (S) 0.82 {KU/L} Abnormal <0.35 [facility] [address] DO Work Phone: [phone] Comment on above: SEE IMMUNOCAP INTERP .IGE Cockroach IgE Qn (S) <0.10 <0.35 [facility] [address] DO Work Phone: [phone] Comment on above: SEE IMMUNOCAP INTERP .IGE Common Pigweed IgE Qn (S) <0.10 <0.35 [facility] [address] DO Work Phone: [phone] Comment on above: SEE IMMUNOCAP INTERP .IGE [place] IgE Qn (S) <0.10 <0.35 [facility] [address] DO Work Phone: [phone] Comment on above: SEE IMMUNOCAP INTERP .IGE Dog dander IgE Qn (S) 0.20 {KU/L} <0.35 [facility] [address] DO Work Phone: [phone] Comment on above: SEE IMMUNOCAP INTERP .IGE Danish plantain IgE Qn (S) <0.10 <0.35 [facility] [address] DO Work Phone: [phone] Comment on above: SEE IMMUNOCAP INTERP .IGE house dust mite IgE Qn (S) 3.53 {KU/L} Abnormal <0.35 [facility] [address] DO Work Phone: [phone] Comment on above: SEE IMMUNOCAP INTERP .IGE [place] IgE Qn (S) <0.10 <0.35 [facility] [address] DO Work Phone: [phone] Comment on above: SEE IMMUNOCAP INTERP .IGE Maximus grass IgE Qn (S) 0.17 {KU/L} <0.35 [facility] [address] DO Work Phone: [phone] Comment on above: SEE IMMUNOCAP INTERP .IGE [place] blue grass IgE Qn (S) 2.98 {KU/L} Abnormal <0.35 [facility] [address] DO Work Phone: [phone] Comment on above: SEE IMMUNOCAP INTERP .IGE Mountain Juniper IgE Qn (S) <0.10 <0.35 [facility] [address] DO Work Phone: [phone] Comment on above: SEE IMMUNOCAP INTERP .IGE P. notatum IgE Qn (S) <0.10 <0.35 [facility] [address] DO Work Phone: [phone] Comment on above: SEE IMMUNOCAP INTERP .IGE Pecan or Hand Tree IgE Qn (S) 0.21 {KU/L} <0.35 [facility] [address] DO Work Phone: [phone] Comment on above: SEE IMMUNOCAP INTERP .IGE Saltwort IgE Qn (S) <0.10 <0.35 [facility] [address] DO Work Phone: [phone] Comment on above: SEE IMMUNOCAP INTERP .IGE Sheep Verdi IgE Qn (S) <0.10 <0.35 [facility] [address] DO Work Phone: [phone] Comment on above: SEE IMMUNOCAP INTERP .IGE Silver [place]ch IgE Qn (S) <0.10 <0.35 [facility] [address] DO Work Phone: [phone] Comment on above: SEE IMMUNOCAP INTERP .IGE Sb IgG Qn (S) 2.74 {KU/L} Abnormal <0.35 [facility] [address] DO Work Phone: [phone] Comment on above: SEE IMMUNOCAP INTERP .IGE Total IgE RAST Qn (S) 55.0 {KU/L} See Below [facility] [address] DO Work Phone: [phone] Comment on above: Reference Range: 0.0 - 214.0 Note: Omalizumab (Xolair, GeneSagoon; humanized IgG1 antihuman IgE Fc) treatment does not significantly interfere with the accuracy of total IgE on the ImmunoCAP ([employer]) platform. J Allergy Clin Immunol 2006;117:759-66). Allergens, parasitic diseases, smoking, and alcohol consumption have been reported to increase levels of total IgE in serum. White [place] IgE Qn (S) <0.10 <0.35 [facility] [address] DO Work Phone: [phone] Comment on above: SEE IMMUNOCAP INTERP .IGE [place] IgE Qn (S) <0.10 <0.35 [facility] [address] DO Work Phone: [phone] Comment on above: SEE IMMUNOCAP INTERP .IGE White mulberry IgE Qn (S) <0.10 <0.35 [facility] [address] DO Work Phone: [phone] Comment on above: SEE IMMUNOCAP INTERP .IGE [place] IgE Qn (S) <0.10 <0.35 [facility] [address] DO Work Phone: Comment on above: SEE IMMUNOCAP INTERP .IGE No Panel Informationon 01-28 SEE COMMENT [facility] [address] DO Work Phone: [phone] Comment on above: REFERENCE RANGE (IMM UNOCAP) IGE KU/L CLASS INTERPRETATION < 0.10 0 BELOW DETECTION 0.10- 0.34 0/1 EQUIVOCAL 0.35- 0.69 1 LOW POSITIVE 0.70- 3.49 2 MODERATE POSITIVE 3.50- 17.49 3 HIGH PDHRHVZD73.50- 49 4 VERY HIGH SJMISNUL30 - 99 5 VERY HIGH POSITIVE >100 6 VERY HIGH POSITIVE 2.79 {KU/L} Abnormal <0.35 [facility] [address] DO Work Phone: [phone] Comment on above: SEE IMMUNOCAP INTERP .IGE Tobacco Screening.on 022 Fall risk assessment a) No falls within the last year [facility] [address] DO Work Phone: [phone] Tobacco use status CP b) No [facility] [address] DO Work Phone: [phone] No Panel Informationon 01-19 Please click on the link to view the study images Normal [facility] [address] Work Phone: [phone] Normal [facility] [address] Work Phone: [phone] Cult, Genitalon 01-14-2022 Bacteria identified Aer cx Nom (Genital specimen) [facility] [address] Work Phone: [phone] Cult, Urineon 01-14-2022 Bacteria identified Cx Nom (U) [facility] [address] Work Phone: [phone] GC + Chlamydia By Amplified Detectionon 01-14-2022 C. trachomatis rRNA SHANAE+probe Ql (Unsp spec) Negative Negative [facility] [address] Work Phone: [phone] Comment on above: The APTIMA Combo 2 a ssay is FDA-approved for Chlamydia trachomatis and Neisseria gonorrhoeae testing on female endocervical and vaginal swabs, ThinPrep liquid pap samples, male urine samples and urethral swabs. Performance characteristics for Chlamydia trachomatis and Neisseria gonorrhoeae testing on specific oqi-GAJ-uppjzpzd sample types (female urine samples) have been validated by [facility]. This laboratory is certified by CLIA to perform high complexity testing. Samples from all other sites are not validated for this method. N. gonorrhoeae rRNA SHANAE+probe Ql (Unsp spec) Negative Negative [address] Work Phone: [phone] Comment on above: SOURCE: Urine The AP MADI Combo 2 assay is FDA-approved for Chlamydia trachomatis and Neisseria gonorrhoeae testing on female endocervical and vaginal swabs, ThinPrep liquid pap samples, male urine samples and urethral swabs. Performance characteristics for Chlamydia trachomatis and Neisseria gonorrhoeae testing on specific tby-ENU-qnfijwlf sample types (female urine samples) have been validated by [facility]. This laboratory is certified by CLIA to perform high complexity testing. Samples from all other sites are not validated for this method. LMPon 01-14-2022 Last menstrual period start date 09Jan[address] Work Phone: [phone] Laboratory - Cytologyon 12-31 Cytology report Cyto stain.thin prep Doc (Cvx/Vag) [address] Work Phone: [phone] CT Abdomen and Pelvis with I V Contraston 01-01-2022 CT Abdomen and Pelvis W contrast IV Please click on the link to view the study images Normal [facility] Work Phone: [phone] CT Abdomen and Pelvis W contrast IV Normal [address] Work Phone: [phone] Laboratory - Chemistry and C hemistry - challengeon 12-31-2021 Albumin BCP dye [Mass/Vol] 4.4 g/dL 3.4 - 5.0 [facility] Work Phone: [phone] ALP [Catalytic activity/Vol] 54 U/L 33 - 110 [facility] Work Phone: [phone] ALT With P-5'-P [Catalytic activity/Vol] 18 U/L 7 - 45 [facility] Work Phone: [phone] Comment on above: Patients treated wit h Sulfasalazine may generate falsely decreased results for ALT. Anion gap [Moles/Vol] 12 mmol/L 10 - 20 [facility] Work Phone: [phone] AST With P-5'-P [Catalytic activity/Vol] 16 U/L 9 - 39 [facility] Work Phone: [phone] Bilirubin [Mass/Vol] 0.4 mg/dL 0.0 - 1.2 [facility] Work Phone: [phone] Calcium [Mass/Vol] 9.2 mg/dL 8.6 - 10.3 [facility] Work Phone: [phone] Chloride [Moles/Vol] 105 mmol/L 98 - 107 [facility] Work Phone: [phone] CO2 [Moles/Vol] 25 mmol/L 21 - 32 [facility] Work Phone: [phone] Creatinine [Mass/Vol] 0.71 mg/dL See Below [facility] Work Phone: [phone] Comment on above: Reference Range: 0.5 0 - 1.05 Glucose [Mass/Vol] 84 mg/dL 74 - 99 [facility] Work Phone: [phone] Potassium [Moles/Vol] 3.6 mmol/L 3.5 - 5.3 [facility] Work Phone: [phone] Protein [Mass/Vol] 7.0 g/dL 6.4 - 8.2 [facility] Work Phone: [phone] Sodium [Moles/Vol] 138 mmol/L 136 - 145 [facility] Work Phone: [phone] TSH Qn 1.47 m[IU]/L See Below [facility] Work Phone: [phone] Comment on above: Reference Range: 0.4 4 - 3.98 TSH testing is performed using different testing methodology at [facility] than at other [facility]. Direct result comparisons should only be made within the same method. Urea nitrogen [Mass/Vol] 16 mg/dL 6 - 23 [facility] Work Phone: [phone] Laboratory - Hematology and Cell countson 12-31-2021 Erythrocyte distribution width (RBC) [Ratio] 12.6 % See Below [facility] Work Phone: [phone] Comment on above: Reference Range: 11. 5 - 14.5 Hematocrit (Bld) [Volume fraction] 42.5 % See Below [facility] Work Phone: [phone] Comment on above: Reference Range: 36. 0 - 46.0 Hemoglobin (Bld) [Mass/Vol] 14.5 g/dL See Below [facility] Work Phone: [phone] Comment on above: Reference Range: 12. 0 - 16.0 MCHC (RBC) [Mass/Vol] 34.1 g/dL See Below [facility] Work Phone: [phone] Comment on above: Reference Range: 32. 0 - 36.0 MCV (RBC) [Entitic vol] 88 fL 80 - 100 [facility] Work Phone: [phone] Platelets (Bld) [#/Vol] 205 10*3/uL 150 - 450 [facility] Work Phone: [phone] RBC (Bld) [#/Vol] 4.81 {x10E12/L} See Below [facility] Work Phone: [phone] Comment on above: Reference Range: 4.0 0 - 5.20 WBC (Bld) [#/Vol] 6.7 10*3/uL 4.4 - 11.3 [facility] Work Phone: [phone] Lipid Panelon 12-31-2021 Cholesterol [Mass/Vol] 155 mg/dL 0 - 199 [facility] Work Phone: [phone] Comment on above: . AGE DESIRABLE BORD CAT HIGH HIGH 0-19 Y 0 - 169 170 - 199 >/= 200 20-24 Y 0 - 189 190 - 224 >/= 225 >24 Y 0 - 199 200 - 239 >/= 240 All ranges are based on fasting samples. Specific therapeutic targets will vary based on patient-specific cardiac risk.. Pediatric guidelines reference:Pediatrics 2011, 128(S5). Adult guidelines reference: NCEP ATPIII Guidelines, DENNIS 2001, 258:2486-97. Venipuncture immediately after or during the administration of Metamizole may lead to falsely low results. Testing should be performed immediately prior to Metamizole dosing. Cholesterol in HDL [Mass/Vol] 69.0 mg/dL [facility] Work Phone: Comment on above: . AGE VERY LOW LOW N ORMAL HIGH 0-19 Y < 35 < 40 40-45 ---- 20-24 Y ---- < 40 >45 ---- >24 Y ---- < 40 40-60 >60. Cholesterol in LDL [Mass/Vol] 74 mg/dL 0 - 119 [facility] Work Phone: Comment on above: . NEAR BORD AGE INA RABLE OPTIMAL HIGH HIGH VERY HIGH 0-19 Y 0 - 109 --- 110-129 >/= 130 ---- 20-24 Y 0 - 119 --- 120-159 >/= 160 ---- >24 Y 0 - 99 100-129 130-159 160-189 >/=190. Cholesterol.total/Chol esterol in HDL [Mass ratio] 2.2 {ratio} [facility] Work Phone: Comment on above: REF VALUESDESIRABLE < 3.4HIGH RISK > 5.0 Triglyceride [Mass/Vol] 60 mg/dL 0 - 149 [facility] Work Phone: Comment on above: . AGE DESIRABLE BORD CAT HIGH HIGH VERY HIGH 0 D-90 D 19 - 174 ---- ---- ----91 D- 9 Y 0 - 74 75 - 99 >/= 100 ---- 10-19 Y 0 - 89 90 - 129 >/= 130 ---- 20-24 Y 0 - 114 115 - 149 >/= 150 ---- >24 Y 0 - 149 150 - 199 200- 499 >/= 500. Venipuncture immediately after or during the administration of Metamizole may lead to falsely low results. Testing should be performed immediately prior to Metamizole dosing. Lipid Panel 12 mg/dL 0 - 40 [facility] Work Phone: No Panel Informationon 12-31 >90 >90 [facility] Work Phone: Comment on above: CALCULATIONS OF MCKENNA MATED GFR ARE PERFORMED USING THE 2020 CKD-EPI STUDY REFIT EQUATION WITHOUT THE RACE VARIABLE FOR THE IDMS-TRACEABLE CREATININE METHODS.https://jasn.asnjournals.org/content/early//A SN.2872513478 Testosterone, Levelon 2021 Testosterone [Mass/Vol] ng/dL 0 - 70 [facility] Work Phone: Comment on above: Nandrolone decanoate , 11 Beta-hydroxytestosterone, androstenedione, testosterone propionate and 79-tacq-wupedxolfros strongly cross react with this test method. Biotin interference may cause falsely elevated results. Patients taking a Biotin dose of up to 5 mg/day should refrain from taking Biotin for 24 hours before sample collection. Providers may contact their local laboratory for further information. Testing by a more sensitive method (Testosterone Total LC-MS/MS) is recommended for accurate quantification of testosterone levels less than 60 ng/dL. Tobacco Screening.on 022 Adult depression screening assessment No [facility] Work Phone: Fall risk assessment a) No falls within the last year [facility] Work Phone: Tobacco use status [facility] b) No [facility] Work Phone: INFLUENZA A/B, COVID 2019 PC R,SYMPTOMATICon 09-01-2021 Date and time of symptom onset [id number] [facility] Work Phone: INFLUENZA A/B, COVID 2019 PCR,SYMPTOMATIC Not detected See Below [facility] Work Phone: Comment on above: Reference Range: Not Detected.This assay is designed to detect the N, ORF1ab and/or S genes of SARS-CoV-2 via nucleic acid amplification. A Negative (NOT DETECTED) result does not preclude 2019-nCoV infection since the adequacy of sample collection and/or low viral burden may result in presence of viral nucleic acids below the clinical sensitivity of this test method. Negative (NOT DETECTED) result should not be used as the sole basis for treatment or other patient management decisions. Rather negative results should be combined with clinical observations, patient history, and epidemiological information to make patient management decisions.Fact sheet for providers: https://www.fda.gov/media/952987/downloadFact sheet for patients: https://www.fda.gov/media/740963/downloadThis test has received FDA Emergency Use Authorization (EUA) and has been verified by [facility] ([facility]). This test is only authorized for the duration of time that circumstances exist to justify the authorization of the emergency use of in vitro diagnostic tests for the detection of SARS-CoV-2 virus and/or diagnosis of COVID-19 infection under section 564(b)(1) of the Act, 21 U.S.C. 360bbb-3(b)(1), unless the authorization is terminated or revoked sooner. [facility] is certified under CLIA-88 as qualified to perform high complexity testing. Testing is performed in the [facility] laboratories located at [address] [place] [address]. Reference Range: Not Detected Respiratory virus testing is performed routinely by PCR for Influenza A/B and RSV. If Influenza and RSV PCR are negative, testing for parainfluenza 1,2,3 viruses and adenovirus is routinely performed for oncology inpatients and intensive care unit patients at [facility] and is available on request on other patients by calling Laboratory Client Services at [phone] Not Detected results do not preclude Influenza A/B or RSV infections since the adequacy of sample collection or low viral burden may impact the clinical sensitivity of this test method..The TaqManTM SARS-CoV-2, Flu A, Flu B Multiplex Assay is a multiplex, real-time RT-PCR assay for the detection of RNA from the SARS-CoV-2, Influenza A, and Influenza B viruses. A negative result does not preclude the possibility of SARS-CoV-2, Influenza A, or Influenza B infections, and should not be used as the sole basis for patient management decision as a negative result may be caused by very low levels of infection, collection errors, or testing errors. .This test was developed and its performance characteristics were determined by the Microbiology Laboratory, Department of Pathology, [facility], [place], [place]. It has not been cleared or approved by the US Food and Drug Administration; however, FDA clearance or approval is not currently required for clinical use. This test should not be regarded as investigational or for research purposes. SOURCE: Nasal, Nasop haryngealReference Range: Not Detected Respiratory virus testing is performed routinely by PCR for Influenza A/B and RSV. If Influenza and RSV PCR are negative, testing for parainfluenza 1,2,3 viruses and adenovirus is routinely performed for oncology inpatients and intensive care unit patients at [facility] and is available on request on other patients by calling Laboratory Client Services at [phone]. Not Detected results do not preclude Influenza A/B or RSV infections since the adequacy of sample collection or low viral burden may impact the clinical sensitivity of this test method. Tobacco Screening.on 022 Adult depression screening assessment No [facility] Work Phone: Fall risk assessment a) No falls within the last year [facility] Work Phone: Tobacco use status [facility] b) No [facility] Work Phone: Tobacco Screening.on 021 Fall risk assessment c) Not medically indicated [facility] Work Phone: Tobacco use status [facility] b) No [facility] Work Phone: Otheron 09-23-2019 XR Abdomen AP Interpreted by: SUMAN JOHN PKSZBHDH10/22/20 17:52MRN: [id number] Name: KM HUNT STUDY:ABDOMEN AP VIEW; 09/23/2019 5:45 pm INDICATION:no bm x 4 days. COMPARISON:None. ORDERING CLINICIAN:TAMERA BERRY FINDINGS:Single frontal view of the abdomen was obtained. There is partially visualized mildly distended debris-filled stomach.Mild-moderate colonic fecal residue is seen.A nonspecificnonobstructiv e bowel gas pattern is demonstrated. No appreciablerenal calculi. Bones are intact. IMPRESSION:1. Nonspecific nonobstructive bowel gas pattern.Electronically signed by: CHEIKH MCKNIGHT 09/23/19 17:52 Normal [facility] [employer] Work Phone: Comment on above: Ordering Provider: Amara BERRY [id number] Cult, Urineon 09-20-2019 Bacteria identified Cx Nom (U) PATIENT: KM HUNT LOCATION: [facility]#: [id number] : 89 AGE: SEX: F ORDERED BY: REVA BAIN: URINE COLLECTED: 09/20/19 09:57ANTIBIOTICS AT TREVER.: RECEIVED : 09/20/19 17:49SITE: Clean Catch/Voided R E S U L T S URINE CULTURE,BACTERIAL FINAL 09/21/19 12:20 NO GROWTH [facility] [employer] Work Phone: Comment on above: Ordering Provider: Pamela BAIN [id number] C Urineon 12-24-2018 C Urine Final Report: Rare Normal skin juan daniel isolated Normal [facility] Comment on above: Performed By: #### 2 [id number] #### IRENE Microbiology Subsection [facility] [place] [address] UA Completeon 12-22-2018 Color (U) Yellow Normal Yellow [facility] Comment on above: Performed By: #### 8 [id number] #### IRENE Urinalysis Automated Subsection [address] [place] [address] Glucose (U) [Mass/Vol] Negative Normal Negative [facility] Comment on above: Performed By: #### 8 [id number] #### IRENE Urinalysis Automated Subsection [facility] [place] [address] Ketones Ql (U) Negative Normal Negative [facility] Comment on above: Performed By: #### 8 [id number] #### IRENE Urinalysis Automated Subsection [address] [place] [address] RBC (U) [#/Vol] 0-3 Normal 0-[address] [facility] Comment on above: Performed By: #### 8 [id number] #### IRENE Urinalysis Automated Subsection [address] [place] [address] UA Blood Negative Normal Negative [facility] Comment on above: Performed By: #### 8 [id number] #### IRENE Urinalysis Automated Subsection [address] [place] [address] UA Bacteria Trace Abnormal None [facility] Comment on above: Performed By: #### 8 [id number] #### IRENE Urinalysis Automated Subsection [facility] [place] [address] UA Clarity Clear Normal Clear [facility] Comment on above: Performed By: #### 8 [id number] #### IRENE Urinalysis Automated Subsection [address] [place] [address] UA Leuk Est Negative Normal Negative [facility] Comment on above: Performed By: #### 8 [id number] #### IRENE Urinalysis Automated Subsection [facility] [place] [address] UA Nitrite Negative Normal Negative [facility] Comment on above: Performed By: #### 8 [id number] #### IRENE Urinalysis Automated Subsection [facility] [place] [address] UA pH 5.0 Normal 4.6-8.[address] [facility] Comment on above: Performed By: #### 8 [id number] #### IRENE Urinalysis Automated Subsection [facility] [place] [address] UA Protein Negative Normal Negative [facility] Comment on above: Performed By: #### 8 [id number] #### IRENE Urinalysis Automated Subsection [facility] [place] [address] UA Spec Grav 1.016 Normal 1.003-1.[address] [facility] Comment on above: Performed By: #### 8 [id number] #### IRENE Urinalysis Automated Subsection [address] [place] [address] UA Squam Epithelial 0-5 Normal 0-5 [facility] Comment on above: Performed By: #### 8 [id number] #### IRENE Urinalysis Automated Subsection [facility] [place] [address] UA Urobilinogen Negative Normal [facility] Comment on above: Result Comment: Due to a manufacturing issue, low positive urobilinogen results may be fasely positive. Correlate with urine bilirubin and additional clinical/laboratory findings to assess the risk of hemolytic anemia or liver disease. If clinically indicated, repeat testing with an alternate method is available by contacting the laboratory within 24 hours. Performed By: #### 8 [id number] #### IRENE Urinalysis Automated Subsection [address] [place] [address] UA WBC 0-5 Normal 0-[address] [facility] Comment on above: Performed By: #### 8 [id number] #### IRENE Urinalysis Automated Subsection [address] [place] [address] Urobilinogen Qn (U) Negative Normal Negative [facility] Comment on above: Performed By: #### 8 [id number] #### IRENE Urinalysis Automated Subsection [address] [place] [address] Vital Signs Date Time Vital Sign Value Performing Clinician Facility 04-18-2025 08:21-0400 Body height 152.4 cm Ayaka Rootman CONSTRUCTION CARPENTER-C Work Phone: [facility] 04-18-2025 08:21-0400 Body mass index (BMI) [Ratio] 28.6 kg/m2 Ayaka Rootman CONSTRUCTION CARPENTER-C Work Phone: [facility] 04-18-2025 08:21-0400 Body weight 66.47 kg Ayaka Doss CONSTRUCTION CARPENTER-C Work Phone: [facility] 04-18-2025 08:21-0400 Diastolic blood pressure 70 mm[Hg] Ayaka Doss CONSTRUCTION CARPENTER-C Work Phone: [facility] 04-18-2025 08:21-0400 Systolic blood pressure 110 mm[Hg] Ayaka Doss CONSTRUCTION CARPENTER-C Work Phone: [facility] 03-19-2025 15:12-0400 Body height 152.4 cm Ayaka Doss CONSTRUCTION CARPENTER-C Work Phone: [facility] 03-19-2025 15:12-0400 Body mass index (BMI) [Ratio] 27.8 kg/m2 Ayaka Doss CONSTRUCTION CARPENTER-C Work Phone: [facility] 03-19-2025 15:12-0400 Body weight 64.58 kg Ayaka Doss CONSTRUCTION CARPENTER-C Work Phone: [facility] 03-19-2025 15:12-0400 Diastolic blood pressure 70 mm[Hg] Ayaka Doss CONSTRUCTION CARPENTER-C Work Phone: [facility] 03-19-2025 15:12-0400 Systolic blood pressure 103 mm[Hg] Ayaka Doss CONSTRUCTION CARPENTER-C Work Phone: [facility] 02-22-2025 09:25-0400 Body height 152.[address] Daniel Schneider DO Work Phone: 0(928)873-540829 [place] [address] 02-22-2025 09:25-0400 Body mass index (BMI) [Ratio] 26 kg/m2 Dr. Daniel Schneider DO Work Phone: 4(210)212-073229 [place] [address] 02-22-2025 09:25-0400 Body weight 60.[address] Daniel Schneider DO Work Phone: 8(536)925-958329 [place] [address] 02-22-2025 09:25-0400 Diastolic blood pressure 72 mm[Hg] Dr. Daniel Schneider DO Work Phone: [facility] 02-22-2025 09:25-0400 Systolic blood pressure 103 mm[Hg] Dr. Daniel Schneider DO Work Phone: 3(530)062-092829 [place] [address] 01-26-2025 13:35-0400 Body height 152.[address] Daniel Schneider DO Work Phone: 3(950)987-575729 [place] [address] 01-26-2025 13:35-0400 Body mass index (BMI) [Ratio] 25 kg/m2 Dr. Daniel Schneider DO Work Phone: 8(386)569-097029 [place] [address] 01-26-2025 13:35-0400 Body weight 58.[address] Daniel Schneider DO Work Phone: 3(418)083-519129 [place] [address] 01-26-2025 13:35-0400 Diastolic blood pressure 74 mm[Hg] Dr. Daniel Schneider DO Work Phone: [facility] 01-26-2025 13:35-0400 Systolic blood pressure 106 mm[Hg] Dr. Daniel Schneider DO Work Phone: [facility] 01-12-2025 09:14-0400 Body mass index (BMI) [Ratio] 24.4 kg/m2 Dr. Daniel Schneider DO Work Phone: [facility] 01-12-2025 09:14-0400 Body weight 56.[address] Daniel Schneider DO Work Phone: [facility] 01-12-2025 09:14-0400 Diastolic blood pressure 64 mm[Hg] Dr. Daniel Schneider DO Work Phone: [facility] 01-12-2025 09:14-0400 Systolic blood pressure 116 mm[Hg] Dr. Daniel Schneider DO Work Phone: [facility] 01-04-2025 10:44-0400 Body height 152.4 cm Johann Haines MD Work Phone: [facility] 01-04-2025 10:44-0400 Body mass index (BMI) [Ratio] 23.44 kg/m2 Johann Haines MD Work Phone: [facility] 01-04-2025 10:44-0400 Body weight 54.43 kg Johann Haines MD Work Phone: [facility] 01-04-2025 10:44-0400 Heart rate 73 /min Johann Haines MD Work Phone: [facility] 01-04-2025 10:44-0400 SaO2% (BldA) [Mass fraction] 98 % Johann Haines MD Work Phone: [facility] 11-23-2024 06:14-0400 Diastolic blood pressure 55 mm[Hg] Starr Torrez MD Work Phone: 4(864)785-519459 [place] [address] 11-23-2024 06:14-0400 Heart rate 75 /min Starr Torrez MD Work Phone: 6(700)760-965024 [place] [address] 11-23-2024 06:14-0400 Respiratory rate 20 /min Starr Torrez MD Work Phone: 8(816)942-017624 [place] [address] 11-23-2024 06:14-0400 SaO2% (BldA) [Mass fraction] 100 % Starr Torrez MD Work Phone: 6(650)088-114324 [place] [address] 11-23-2024 06:14-0400 Systolic blood pressure 98 mm[Hg] Starr Torrez MD Work Phone: 1(504)364-019624 [place] [address] 11-23-2024 01:54-0400 Body height 152.4 cm Starr Torrez MD Work Phone: 8(872)321-293424 [place] [address] 11-23-2024 01:52-0400 Body temperature 97.9 [degF] Starr Torrez MD Work Phone: 1(575)413-715824 [place] [address] 11-05-2024 17:28-0400 Diastolic blood pressure 71 mm[Hg] Dr. Daniel Schneider DO Work Phone: [facility] 11-05-2024 17:28-0400 Heart rate 91 /min Dr. Daniel Schneider DO Work Phone: [facility] 11-05-2024 17:28-0400 Respiratory rate 16 /min Dr. Daniel Schneider DO Work Phone: [facility] 11-05-2024 17:28-0400 SaO2% (BldA) [Mass fraction] 100 % Dr. Daniel Schneider DO Work Phone: [facility] 11-05-2024 17:28-0400 Systolic blood pressure 107 mm[Hg] Dr. Daniel Schneider DO Work Phone: [facility] 11-05-2024 16:32-0400 Body mass index (BMI) [Ratio] 23.8 kg/m2 Dr. Daniel Schneider DO Work Phone: [facility] 11-05-2024 16:32-0400 Body weight 55.[address] Daniel Schneider DO Work Phone: [facility] 11-05-2024 15:17-0400 Body height 152.[address] Daniel Schneider DO Work Phone: [facility] 11-05-2024 15:17-0400 Body temperature 97.4 [degF] Dr. Daniel Schneider DO Work Phone: [facility] 09-20-2024 14:45-0500 Body height 152.4 cm Ayaka Doss 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 Work Phone: [facility] 09-20-2024 14:45-0500 Body mass index (BMI) [Ratio] 24.02 kg/m2 Ayaka Rootman 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 Work Phone: [facility] 09-20-2024 14:45-0500 Body temperature 97.5 [degF] Ayaka Selam 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 Work Phone: [facility] 09-20-2024 14:45-0500 Body weight 55.79 kg Ayaka Rootman 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 Work Phone: [facility] 09-20-2024 14:45-0500 Diastolic blood pressure 73 mm[Hg] Ayaka Rootman 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 Work Phone: [facility] 09-20-2024 14:45-0500 Heart rate 89 /min Ayaka Rootman 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 Work Phone: [facility] 09-20-2024 14:45-0500 Systolic blood pressure 109 mm[Hg] Ayaka Selam 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 Work Phone: 9(507)026-793951 [place] [address] 09-09-2024 09:12-0500 Body height 154 cm Evens Ken 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 Work Phone: [facility] 09-09-2024 09:12-0500 Body mass index (BMI) [Ratio] 22.95 kg/m2 Evens Ken 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 Work Phone: [facility] 09-09-2024 09:12-0500 Body temperature 98.2 [degF] Evens Ken 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 Work Phone: [facility] 09-09-2024 09:12-0500 Body weight 54.43 kg Evens Ken 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 Work Phone: [facility] 09-09-2024 09:12-0500 Diastolic blood pressure 73 mm[Hg] Evens Ken 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 Work Phone: [facility] 09-09-2024 09:12-0500 Heart rate 98 /min Evens Ken 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 Work Phone: [facility] 09-09-2024 09:12-0500 SaO2% (BldA) [Mass fraction] 98 % Evens Ken 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 Work Phone: [facility] 09-09-2024 09:12-0500 Systolic blood pressure 106 mm[Hg] Evens Ken 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 Work Phone: [facility] 08-30-2024 16:51-0500 Body height 152.4 cm Ayaka Doss 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 Work Phone: [facility] 08-30-2024 16:51-0500 Body mass index (BMI) [Ratio] 23.87 kg/m2 Ayaka Doss 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 Work Phone: [facility] 08-30-2024 16:51-0500 Body weight 55.43 kg Ayaka Doss 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 Work Phone: [facility] 08-30-2024 16:51-0500 Diastolic blood pressure 82 mm[Hg] Ayaka Doss 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 Work Phone: [facility] 08-30-2024 16:51-0500 Heart rate 67 /min Ayaka Doss 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 Work Phone: [facility] 08-30-2024 16:51-0500 Systolic blood pressure 120 mm[Hg] Ayaka Doss 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 Work Phone: [facility] 05-02-2024 11:44-0400 Body height 152.4 cm Evens Tamirlouis 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 Work Phone: [facility] 05-02-2024 11:44-0400 Body mass index (BMI) [Ratio] 23.44 kg/m2 Evens Tamirenibenjamín 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 Work Phone: [facility] 05-02-2024 11:44-0400 Body temperature 98.8 [degF] Evens Garnettenibenjamín 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 Work Phone: 6(138)960-919111 [place] [address] 05-02-2024 11:44-0400 Body weight 54.43 kg Evens Garnettenibenjamín 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 Work Phone: [facility] 05-02-2024 11:44-0400 Diastolic blood pressure 75 mm[Hg] Evens Garnettenibenjamín 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 Work Phone: [facility] 05-02-2024 11:44-0400 Heart rate 90 /min Evens Palacios 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 Work Phone: [facility] 05-02-2024 11:44-0400 Respiratory rate 18 /min Evens Garnettenibenjamín 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 Work Phone: [facility] 05-02-2024 11:44-0400 SaO2% (BldA) [Mass fraction] 95 % Evens Tamirlouis 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 Work Phone: [facility] 05-02-2024 11:44-0400 Systolic blood pressure 108 mm[Hg] Evens Garnettenibenjamín 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 Work Phone: [facility] 04-28-2024 12:45-0400 Diastolic blood pressure 79 mm[Hg] Jayden Taylor MD Work Phone: [facility] 04-28-2024 12:45-0400 Heart rate 83 /min Jayden Taylor MD Work Phone: [facility] 04-28-2024 12:45-0400 Respiratory rate 16 /min Jayden Taylor MD Work Phone: [facility] 04-28-2024 12:45-0400 SaO2% (BldA) [Mass fraction] 100 % Jayden Taylor MD Work Phone: [facility] 04-28-2024 12:45-0400 Systolic blood pressure 116 mm[Hg] Jayden Taylor MD Work Phone: [facility] 04-28-2024 10:03-0400 Body temperature 97.3 [degF] Jayden Taylor MD Work Phone: [facility] 04-28-2024 06:23-0400 Body mass index (BMI) [Ratio] 23.44 kg/m2 Jayden Taylor MD Work Phone: [facility] 04-28-2024 06:23-0400 Body weight 54.43 kg Jayden Taylor MD Work Phone: [facility] 12-22-2023 14:49-0400 Body height 153 cm Jayden Taylor MD Work Phone: [facility] 12-22-2023 14:49-0400 Body mass index (BMI) [Ratio] 23.25 kg/m2 Jayden Taylor MD Work Phone: [facility] [facility] 12-22-2023 14:49-0400 Body weight 54.43 kg Jayden Taylor MD Work Phone: [facility] 10-29-2023 14:18-0400 Body height 153 cm Jameel Hernandez MD Work Phone: [facility] 10-29-2023 14:18-0400 Body mass index (BMI) [Ratio] 23.37 kg/m2 Jameel Hernandez MD Work Phone: [facility] 10-29-2023 14:18-0400 Body weight 54.7 kg Jameel Hernandez MD Work Phone: [facility] 10-29-2023 14:18-0400 Diastolic blood pressure 68 mm[Hg] Jameel Hernandez MD Work Phone: [facility] 10-29-2023 14:18-0400 Systolic blood pressure 124 mm[Hg] Jameel Hernandez MD Work Phone: [facility] 10-14-2023 11:50-0400 Diastolic blood pressure 58 mm[Hg] Jameel Hernandez MD Work Phone: [facility] 10-14-2023 11:50-0400 Heart rate 70 /min Jameel Hernandez MD Work Phone: [facility] 10-14-2023 11:50-0400 Respiratory rate 16 /min Jameel Hernandez MD Work Phone: [facility] 10-14-2023 11:50-0400 SaO2% (BldA) [Mass fraction] 97 % Jameel Hernandez MD Work Phone: [facility] 10-14-2023 11:50-0400 Systolic blood pressure 100 mm[Hg] Jameel Hernandez MD Work Phone: [facility] 10-14-2023 11:05-0400 Body temperature 97.59 [degF] Jameel Hernandez MD Work Phone: [facility] 10-14-2023 07:32-0400 Body height 153 cm Jameel Hernandez MD Work Phone: [facility] 10-14-2023 07:32-0400 Body mass index (BMI) [Ratio] 23.11 kg/m2 Jameel Hernandez MD Work Phone: [facility] 10-14-2023 07:32-0400 Body weight 54.1 kg Jameel Hernandez MD Work Phone: [facility] 09-24-2023 14:18-0500 Body height 152.4 cm Jameel Hernandez MD Work Phone: [facility] 09-24-2023 14:18-0500 Body mass index (BMI) [Ratio] 23.98 kg/m2 Jameel Hernandez MD Work Phone: [facility] 09-24-2023 14:18-0500 Body weight 55.7 kg Jameel Hernandez MD Work Phone: [facility] 09-24-2023 14:18-0500 Diastolic blood pressure 64 mm[Hg] Jameel Hernandez MD Work Phone: [facility] 09-24-2023 14:18-0500 Systolic blood pressure 118 mm[Hg] Jameel Hernandez MD Work Phone: [facility] 04-28-2023 16:42-0400 Body height 152.4 cm Sukh Newbill PA-C Work Phone: [facility] 04-28-2023 16:42-0400 Body mass index (BMI) [Ratio] 22.91 kg/m2 Sukh Newbill PA-C Work Phone: [facility] 04-28-2023 16:42-0400 Body weight 53.21 kg Sukh Newbill PA-C Work Phone: [facility] 04-28-2023 16:42-0400 Diastolic blood pressure 77 mm[Hg] Sukh Newbill PA-C Work Phone: [facility] 04-28-2023 16:42-0400 Heart rate 103 /min Sukh Newbill PA-C Work Phone: [facility] 04-28-2023 16:42-0400 Systolic blood pressure 130 mm[Hg] Sukh Newbill PA-C Work Phone: [facility] 03-04-2023 09:42-0400 Body height 152.4 cm Sukh Newbill PA-C Work Phone: [facility] 03-04-2023 09:42-0400 Body mass index (BMI) [Ratio] 21.99 kg/m2 Sukh Newbill PA-C Work Phone: [facility] 03-04-2023 09:42-0400 Body weight 51.08 kg Sukh Newbill PA-C Work Phone: [facility] 03-04-2023 09:42-0400 Diastolic blood pressure 66 mm[Hg] Sukh Newbill PA-C Work Phone: [facility] 03-04-2023 09:42-0400 Heart rate 84 /min Sukh Newbill PA-C Work Phone: [facility] 03-04-2023 09:42-0400 Systolic blood pressure 110 mm[Hg] Sukh Newbill PA-C Work Phone: [facility] 02-15-2023 10:24-0400 Body height 149.86 cm Sukh Santiago Newbill Work Phone: [facility] [address] Work Phone: 02-15-2023 10:24-0400 Body mass index (BMI) [Ratio] 23.86 kg/m2 Sukh Santiago Newbill Work Phone: [facility] [address] Work Phone: 02-15-2023 10:24-0400 Body surface area Derived from formula 1.47 m2 Sukh Pamela Newbill Work Phone: [facility] [address] Work Phone: 02-15-2023 10:24-0400 Body weight 53.58 kg Sukh Pamela Newbill Work Phone: [address] Work Phone: 02-15-2023 10:24-0400 Diastolic blood pressure 64 mm[Hg] Sukh Pamela Newbill Work Phone: [address] Work Phone: 02-15-2023 10:24-0400 Systolic blood pressure 114 mm[Hg] Sukh M Newbill Work Phone: [address] Work Phone: 01-26-2023 11:56-0400 Body height 152.4 cm Sukh Newbill PA-C Work Phone: [facility] 01-26-2023 11:56-0400 Body mass index (BMI) [Ratio] 22.48 kg/m2 Sukh Newbill PA-C Work Phone: [facility] 01-26-2023 11:56-0400 Body temperature 97.5 [degF] Sukh Newbill PA-C Work Phone: [facility] 01-26-2023 11:56-0400 Body weight 52.21 kg Sukh Newbill PA-C Work Phone: [facility] 01-26-2023 11:56-0400 Diastolic blood pressure 74 mm[Hg] Sukh Newbill PA-C Work Phone: [facility] 01-26-2023 11:56-0400 Heart rate 54 /min Sukh Newbill PA-C Work Phone: [facility] 01-26-2023 11:56-0400 Systolic blood pressure 109 mm[Hg] Sukh Newbill PA-C Work Phone: [facility] 12-17-2022 09:09-0400 Body height 149.86 cm Sukh M Newbill Work Phone: [id number] [address] Work Phone: 12-17-2022 09:09-0400 Body mass index (BMI) [Ratio] 24.04 kg/m2 [facility] Work Phone: [id number] [address] Work Phone: 12-17-2022 09:09-0400 Body surface area Derived from formula 1.48 m2 [facility] Work Phone: [id number] [address] Work Phone: 12-17-2022 09:09-0400 Body weight 53.98 kg [facility] Work Phone: [id number] [address] Work Phone: 12-17-2022 09:09-0400 Diastolic blood pressure 73 mm[Hg] Sukh Simpson Work Phone: [id number] [address] Work Phone: 12-17-2022 09:09-0400 Heart rate 65 /min Sukh Simpson Work Phone: [id number] [address] Work Phone: 12-17-2022 09:09-0400 Systolic blood pressure 106 mm[Hg] Sukh Simpson Work Phone: [id number] [address] Work Phone: 12-17-2022 09:09-0400 0 1 [facility] Work Phone: [id number] [address] Work Phone: Comment on above: GRAV [employer] 12-02-2022 13:12-0400 Body mass index (BMI) [Ratio] 24.04 kg/m2 [facility] Work Phone: [facility] Work Phone: 12-02-2022 13:12-0400 Body surface area Derived from formula 1.48 m2 [facility] Work Phone: [facility] Work Phone: 12-02-2022 13:12-0400 Body weight 53.98 kg Sukh Pamela Simpsonl Work Phone: [facility] Work Phone: 12-02-2022 13:12-0400 Diastolic blood pressure 71 mm[Hg] Sukh Pamela Newbill Work Phone: [facility] Work Phone: 12-02-2022 13:12-0400 Heart rate 67 /min Sukh Pamela Simpsonl Work Phone: [facility] Work Phone: 12-02-2022 13:12-0400 Systolic blood pressure 96 mm[Hg] Sukh Pamela Simpsonl Work Phone: [facility] Work Phone: 12-02-2022 13:12-0400 0 1 Sukh Pollock Work Phone: [facility] Work Phone: Comment on above: [employer] 11-24-2022 10:04-0400 Body height 149.86 cm Sukh Simpsonl Work Phone: [place] [address] Work Phone: 11-24-2022 10:04-0400 Body mass index (BMI) [Ratio] 26.48 kg/m2 Sukh Pamela Griffinbill Work Phone: [place] [address] Work Phone: 11-24-2022 10:04-0400 Body surface area Derived from formula 1.54 m2 Sukh Pamela Newbill Work Phone: [facility] [address] Work Phone: 11-24-2022 10:04-0400 Body weight 59.48 kg Sukh Pamela Newbill Work Phone: [facility] [address] Work Phone: 11-24-2022 10:04-0400 Diastolic blood pressure 72 mm[Hg] Sukh M Newbill Work Phone: [address] Work Phone: 11-24-2022 10:04-0400 Systolic blood pressure 118 mm[Hg] Sukh Pamela Newbill Work Phone: [address] Work Phone: 11-03-2022 11:02-040 Body height 149.9 cm Sukh Newbill PA-C Work Phone: [facility] 11-03-2022 11:02-0400 Body mass index (BMI) [Ratio] 25.45 kg/m2 Sukh Newbill PA-C Work Phone: [facility] 11-03-2022 11:02-040 Body temperature 98.01 [degF] Sukh Newbill PA-C Work Phone: [facility] 11-03-2022 11:02-0400 Body weight 57.15 kg Sukh Newbill PA-C Work Phone: [facility] 11-03-2022 11:02-0400 Diastolic blood pressure 71 mm[Hg] Sukh Newbill PA-C Work Phone: [facility] 11-03-2022 11:02-0400 Heart rate 96 /min Sukh Newbill PA-C Work Phone: [facility] 11-03-2022 11:02-0400 SaO2% (BldA) [Mass fraction] 98 % Sukh Newbill PA-C Work Phone: [facility] 11-03-2022 11:02-0400 Systolic blood pressure 105 mm[Hg] Sukh Newbill PA-C Work Phone: [facility] 10-31-2022 10:57-0400 Body height 152 cm Sukh Newbill Other Phone: [facility] 10-31-2022 10:57-0400 Body temperature 97.7 [degF] Sukh Newbill Other Phone: [facility] 10-31-2022 10:57-0400 Diastolic blood pressure 76 mm[Hg] Sukh Newbill Other Phone: [facility] 10-31-2022 10:57-0400 Heart rate 71 /min Sukh Newbill Other Phone: [facility] 10-31-2022 10:57-0400 Respiratory rate 12 /min Sukh Newbill Other Phone: [facility] 10-31-2022 10:57-0400 SaO2% (BldA) [Mass fraction] 98 % Sukh Newbill Other Phone: [facility] 10-31-2022 10:57-0400 Systolic blood pressure 109 mm[Hg] Sukh Newbill Other Phone: [facility] 09-21-2022 14:42-0500 Body height 149.86 cm Sukh Pamela Newbill Work Phone: [facility] Work Phone: 09-21-2022 14:42-0500 Body mass index (BMI) [Ratio] 25.63 kg/m2 Sukh Santiago Newbill Work Phone: [facility] Work Phone: 09-21-2022 14:42-0500 Body surface area Derived from formula 1.52 m2 Sukh Pamela Newbill Work Phone: [facility] Work Phone: 09-21-2022 14:42-0500 Body temperature 97.8 [degF] Sukh Pamela Newbill Work Phone: [facility] Work Phone: 02-20-2023 14:42-0500 Body weight 57.56 kg Sukh Pollock Work Phone: [facility] Work Phone: 09-21-2022 14:42-0500 Diastolic blood pressure 64 mm[Hg] Sukh Pollock Work Phone: [facility] Work Phone: 09-21-2022 14:42-0500 Heart rate 82 /min Sukh Pollock Work Phone: [facility] Work Phone: 09-21-2022 14:42-0500 SaO2% (BldA) [Mass fraction] 98 % Sukh Pollock Work Phone: [facility] Work Phone: 09-21-2022 14:42-0500 Systolic blood pressure 101 mm[Hg] Sukh Pollock Work Phone: [facility] Work Phone: 05-21-2022 16:26-0400 Body height 149.86 cm Sukh Pollock Work Phone: [facility] Work Phone: 05-21-2022 16:26-0400 Body mass index (BMI) [Ratio] 26.9 kg/m2 Sukh Pollock Work Phone: [facility] Work Phone: 05-21-2022 16:26-0400 Body surface area Derived from formula 1.55 m2 Sukh Pollock Work Phone: [facility] Work Phone: 05-21-2022 16:26-0400 Body temperature 97.5 [degF] Sukh Pollock Work Phone: [facility] Work Phone: 05-21-2022 16:26-0400 Body weight 60.42 kg Sukh Simpsonl Work Phone: [facility] Work Phone: 05-21-2022 16:26-0400 Diastolic blood pressure 81 mm[Hg] Suhk Simpsonl Work Phone: [facility] Work Phone: 05-21-2022 16:26-0400 Heart rate 63 /min Sukh Simpsonl Work Phone: [facility] Work Phone: 05-21-2022 16:26-0400 Systolic blood pressure 105 mm[Hg] Sukh Simpsonl Work Phone: [facility] Work Phone: 04-22-2022 16:21-0400 Body height 149.86 cm Sukh Pollock Work Phone: [facility] Work Phone: 04-22-2022 16:21-0400 Body mass index (BMI) [Ratio] 27 kg/m2 Sukh Pollock Work Phone: [facility] Work Phone: 04-22-2022 16:21-0400 Body surface area Derived from formula 1.55 m2 Sukh Pollock Work Phone: [facility] Work Phone: 04-22-2022 16:21-0400 Body temperature 97.6 [degF] Sukh Simpsonl Work Phone: [facility] Work Phone: 04-22-2022 16:21-0400 Body weight 60.65 kg Sukh Simpsonl Work Phone: [facility] Work Phone: 04-22-2022 16:21-0400 Diastolic blood pressure 69 mm[Hg] Sukh Pollock Work Phone: [facility] Work Phone: 04-22-2022 16:21-0400 Heart rate 87 /min Sukh Pollock Work Phone: [facility] Work Phone: 04-22-2022 16:21-0400 SaO2% (BldA) [Mass fraction] 98 % Sukh Pollock Work Phone: [facility] Work Phone: 04-22-2022 16:21-0400 Systolic blood pressure 109 mm[Hg] Sukh Pollock Work Phone: [facility] Work Phone: 02-11-2022 10:13-0400 Body height 149.86 cm Sukh Pollock Work Phone: [facility] [address] Work Phone: 02-11-2022 10:13-0400 Body mass index (BMI) [Ratio] 27.39 kg/m2 Sukh Pollock Work Phone: [facility] [address] Work Phone: 02-11-2022 10:13-0400 Body surface area Derived from formula 1.56 m2 Sukh Simpson Work Phone: [facility] [address] Work Phone: 02-11-2022 10:13-0400 Body temperature 98.4 [degF] Sukh Simpson Work Phone: [facility] [address] Work Phone: 02-11-2022 10:13-0400 Body weight 61.51 kg Sukh Simpson Work Phone: [facility] [address] Work Phone: 02-11-2022 10:13-0400 Diastolic blood pressure 64 mm[Hg] Sukh Simpson Work Phone: [facility] [address] Work Phone: 02-11-2022 10:13-0400 Heart rate 82 /min Sukh Simpson Work Phone: [facility] [address] Work Phone: 02-11-2022 10:13-0400 SaO2% (BldA) [Mass fraction] 97 % Sukh Simpson Work Phone: [facility] [address] Work Phone: 02-11-2022 10:13-0400 Systolic blood pressure 102 mm[Hg] Suhk Simpson Work Phone: [facility] [address] Work Phone: 01-28-2022 10:54-0400 Body height 149.86 cm Sukh Simpson Work Phone: [facility] [address] Work Phone: 01-28-2022 10:54-0400 Body mass index (BMI) [Ratio] 27.52 kg/m2 Sukh Simpson Work Phone: [facility] [address] Work Phone: 01-28-2022 10:54-0400 Body surface area Derived from formula 1.57 m2 Sukh Simpson Work Phone: [facility] [address] Work Phone: 01-28-2022 10:54-0400 Body weight 61.8 kg Sukh Simpson Work Phone: [facility] [address] Work Phone: 01-28-2022 10:54-0400 Diastolic blood pressure 78 mm[Hg] Sukh Pollock Work Phone: [facility] [address] Work Phone: 01-28-2022 10:54-0400 Systolic blood pressure 122 mm[Hg] Sukh Pollock Work Phone: [facility] [address] Work Phone: 01-28-2022 09:10-0400 Body height 149.86 cm Sukh Pollock Work Phone: [facility] [address] Work Phone: 01-28-2022 09:10-0400 Body mass index (BMI) [Ratio] 27.51 kg/m2 Sukh Pollock Work Phone: [facility] [address] Work Phone: 01-28-2022 09:10-0400 Body surface area Derived from formula 1.57 m2 Sukh Pollock Work Phone: [facility] [address] Work Phone: 01-28-2022 09:10-0400 Body temperature 97.8 [degF] Sukh Pollock Work Phone: [facility] [address] Work Phone: 01-28-2022 09:10-0400 Body weight 61.78 kg Sukh Pollock Work Phone: [facility] [address] Work Phone: 01-28-2022 09:10-0400 Diastolic blood pressure 72 mm[Hg] Sukh Pollock Work Phone: [facility] [address] Work Phone: 01-28-2022 09:10-0400 Heart rate 86 /min Sukh Pollock Work Phone: [facility] [address] Work Phone: 01-28-2022 09:10-0400 SaO2% (BldA) [Mass fraction] 98 % Sukh Pamela Newbill [facility] [address] Work Phone: 01-28-2022 09:10-0400 Systolic blood pressure 116 mm[Hg] Sukh M Newbill [facility] [address] Work Phone: 01-14-2022 11:21-0400 Body height 149.86 cm Sukh Pamela Newbill Work Phone: [place] [address] Work Phone: 01-14-2022 11:21-0400 Body mass index (BMI) [Ratio] 26.69 kg/m2 Sukh Pamela Newbill Work Phone: [place] [address] Work Phone: 01-14-2022 11:21-0400 Body surface area Derived from formula 1.55 m2 Sukh Pamela Newbill Work Phone: [place] [address] Work Phone: 01-14-2022 11:21-0400 Body weight 59.93 kg Sukh Pamela Newbill Work Phone: [place] [address] Work Phone: 01-14-2022 11:21-0400 Diastolic blood pressure 78 mm[Hg] Sukh M Newbill Work Phone: [place] [address] Work Phone: 01-14-2022 11:21-0400 Systolic blood pressure 118 mm[Hg] Sukh M Newbill Work Phone: [place] [address] Work Phone: 12-31-2021 11:57-0400 Body height 149.86 cm Sukh M Newbill Work Phone: [facility] Work Phone: 12-31-2021 11:57-0400 Body mass index (BMI) [Ratio] 26.96 kg/m2 Sukh Pamela Newramonital Work Phone: [facility] Work Phone: 12-31-2021 11:57-0400 Body surface area Derived from formula 1.55 m2 Sukh Pamela Newramonital Work Phone: [facility] Work Phone: 12-31-2021 11:57-0400 Body weight 60.56 kg Sukh Pamela Newramonital Work Phone: [facility] Work Phone: 12-31-2021 11:57-0400 Diastolic blood pressure 64 mm[Hg] Sukh Pamela Simpsonl Work Phone: [facility] Work Phone: 12-31-2021 11:57-0400 Heart rate 108 /min Sukh Pamela Simpsonl Work Phone: [facility] Work Phone: 12-31-2021 11:57-0400 Systolic blood pressure 106 mm[Hg] Sukh Pamela Simpsonl Work Phone: [facility] Work Phone: 09-01-2021 11:08-0500 Body height 149.86 cm Sukh Pamela Newbill Work Phone: [facility] Work Phone: 09-01-2021 11:08-0500 Body mass index (BMI) [Ratio] 26.46 kg/m2 Sukh Pamela Newbill Work Phone: [facility] Work Phone: 09-01-2021 11:08-0500 Body surface area Derived from formula 1.54 m2 Sukh Pamela Newramonital Work Phone: [facility] Work Phone: 09-01-2021 11:08-0500 Body temperature 99 [degF] Sukh Pollock Work Phone: [facility] Work Phone: 09-01-2021 11:08-0500 Body weight 59.42 kg Sukh Pollock Work Phone: [facility] Work Phone: 09-01-2021 11:08-0500 Diastolic blood pressure 69 mm[Hg] Sukh Pollock Work Phone: [facility] Work Phone: 09-01-2021 11:08-0500 Heart rate 123 /min Sukh Pollock Work Phone: [facility] Work Phone: 09-01-2021 11:08-0500 SaO2% (BldA) [Mass fraction] 99 % Sukh Pollock Work Phone: [facility] Work Phone: 09-01-2021 11:08-0500 Systolic blood pressure 107 mm[Hg] Sukh Pollock Work Phone: [facility] Work Phone: 06-24-2021 16:32-0500 Body height 149.86 cm Sukh Pollock Work Phone: [facility] Work Phone: 06-24-2021 16:32-0500 Body mass index (BMI) [Ratio] 26.64 kg/m2 Sukh Pollock Work Phone: [facility] Work Phone: 06-24-2021 16:32-0500 Body surface area Derived from formula 1.54 m2 Sukh Pollock Work Phone: [facility] Work Phone: 06-24-2021 16:32-0500 Body temperature 97.3 [degF] Sukh Pollock Work Phone: [facility] Work Phone: 06-24-2021 16:32-0500 Body weight 59.83 kg Sukh Pollock Work Phone: [facility] Work Phone: 06-24-2021 16:32-0500 Diastolic blood pressure 73 mm[Hg] Sukh Pollock Work Phone: [facility] Work Phone: 06-24-2021 16:32-0500 Heart rate 89 /min Sukh Pollock Work Phone: [facility] Work Phone: 06-24-2021 16:32-0500 SaO2% (BldA) [Mass fraction] 99 % Sukh Pollock Work Phone: [facility] Work Phone: 06-24-2021 16:32-0500 Systolic blood pressure 106 mm[Hg] Sukh Pollock Work Phone: [facility] Work Phone: 09-01-2019 13:34-0500 BMI (Body Mass Index) 25.13 kg/m2 [facility] Work Phone: 09-01-2019 13:34-0500 Body weight 58.06 kg [facility] Work Phone: 09-01-2019 13:34-0500 BP Diastolic 68 mm[Hg] [facility] Work Phone: 09-01-2019 13:34-0500 BP Systolic 112 mm[Hg] [facility] Work Phone: 09-01-2019 13:34-0500 BSA (Body Surface Area) 1.54 m2 [facility] Work Phone: 09-01-2019 13:34-0500 Height 152 cm [facility] Work Phone: Encounters Encounter Date Encounter Type Care Provider Facility Start: 05-17-2025 ambulatory Ayaka Doss Facility:[facility] Start: 05-09-2025 ambulatory Ayaka Doss Facility:[facility] Start: 04-19-2025 End: 04-19-2025 ambulatory AYAKA Manzanares [facility] Start: 04-18-2025 End: 04-18-2025 Patient encounter procedure Nelli Juárez CONSTRUCTION CARPENTER-C -[facility] Work Phone: Start: 04-18-2025 End: 04-18-2025 ambulatory Ayaka Doss CONSTRUCTION CARPENTER-C Work Phone: -[facility] Start: 04-07-2025 End: 04-07-2025 Emergency department patient visit AYAKA Manzanares [facility] Start: 04-05-2025 End: 04-05-2025 ambulatory MARCIE Jo Ann [facility] Start: 03-19-2025 End: 03-19-2025 ambulatory Ayaka Doss CONSTRUCTION CARPENTER-C Work Phone: -Laboratory Specimen Start: 03-19-2025 End: 03-19-2025 Patient encounter procedure Kelsey Harrell CNM -Laboratory Specimen Work Phone: Start: 03-19-2025 End: 03-19-2025 Patient encounter procedure Kelsey Harrell CNM -[facility] Work Phone: Start: 03-19-2025 End: 03-19-2025 ambulatory Ayaka Doss CONSTRUCTION CARPENTER-C Work Phone: -[facility] Start: 03-19-2025 End: 03-19-2025 ambulatory Kelsey Harrell Facility:[facility] Start: 03-13-2025 Registered Recurring Apple Browne CNPamela -Physical Therapy Work Phone: Start: 02-22-2025 End: 02-22-[address] Marcie Santana MD -[facility] Work Phone: Start: 02-22-2025 End: 02-22-[address] Daniel Schneider DO Work Phone: -[facility] Start: 02-20-2025 Registered Recurring Apple Browne CNM -Physical Therapy Work Phone: Start: 01-26-2025 End: 01-26-2025 Patient encounter procedure Apple Browne CNM -[facility] Work Phone: Start: 01-26-2025 End: 01-26-[address] Daniel Schneider DO Work Phone: -[facility] Start: 01-26-2025 End: 01-26-2025 ambulatory [facility] Facility:[facility] Start: 01-12-2025 End: 01-12-[address] Kirsten Aragon DO -[facility] Work Phone: Start: 01-12-2025 End: 01-12-[address] Daniel Schneider DO Work Phone: [facility] Work Phone: Start: 01-04-2025 ambulatory AYAKA BANNER MD [facility] Facility:[facility] Start: 01-04-2025 End: 01-04-2025 Office outpatient new 60 minutes Johann Haines MD Work Phone: [facility] Comment on above: Chronic urticaria (P rimary Dx); Angioedema, initial encounter; Swelling Start: 01-04-2025 ambulatory STARR quezada:[facility] Start: 01-02-2025 End: 01-02-[facility] Start: 01-02-2025 End: 01-02-2025 Office outpatient new 45 minutes Chad Valdez MD Work Phone: [facility] Comment on above: OAB (overactive blad shannan) (Primary Dx); Urinary symptom or sign; Interstitial cystitis; Pelvic pain in female; Pelvic floor dysfunction Start: 12-26-2024 End: 12-26-2024 ambulatory [facility] Start: 12-22-2024 ambulatory [facility] Start: 11-24-2024 End: 11-24-2024 Office outpatient visit 15 minutes Ayaka Doss 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 Work Phone: [facility] Comment on above: Allergic reaction, s ubsequent encounter (Primary Dx) Start: 11-24-2024 End: 11-24-2024 ambulatory [facility] Start: 11-23-2024 End: 11-23-2024 Emergency department patient visit Starr Torrez MD Work Phone: [facility] Start: 11-22-2024 End: 11-22-2024 Emergency department patient [facility] Start: 11-16-2024 ambulatory [facility] Start: 11-05-2024 End: 11-05-2024 Emergency department patient visit Dr. Daniel Schneider DO Work Phone: -Emergency Department Work Phone: Start: 09-22-2024 End: 09-22-2024 Subsequent hospital visit by physician Lan X-Ray 1 [facility] Comment on above: Bronchitis Start: 09-22-2024 End: 09-22-2024 ambulatory [facility] Start: 09-20-2024 End: 09-20-2024 Office outpatient visit 15 minutes Ayaka Doss 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 Work Phone: [facility] Comment on above: Bronchitis (Primary Dx); , unspecified gestational age ([facility] Start: 09-20-2024 End: 09-20-2024 ambulatory [facility] Start: 09-09-2024 End: 09-09-2024 Patient encounter procedure Evens Palacios 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 Work Phone: [facility] Comment on above: Acute non-recurrent maxillary sinusitis (Primary Dx); Acute upper respiratory infection Start: 09-09-2024 End: 09-09-2024 ambulatory [facility] Start: 08-31-2024 End: 08-31-2024 Subsequent hospital visit by physician Lan Melo [address] [place] [address] Comment on above: UTI symptoms Start: 08-31-2024 End: 08-31-2024 ambulatory [facility] Start: 08-30-2024 End: 08-30-2024 Office outpatient visit 15 minutes [facility] 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 Work Phone: [facility] Comment on above: UTI symptoms Start: 08-30-2024 End: 08-30-2024 ambulatory [facility] Start: 06-14-2024 End: 06-14-2024 Phys/qhp telephone evaluation 11-20 min [facility] 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 Work Phone: [facility] Comment on above: Panic attacks (Prima ry Dx); Anxiety and depression Start: 06-14-2024 End: 06-14-2024 ambulatory [facility] Start: 06-01-2024 End: 06-01-2024 ambulatory JAYDEN Cherry [facility] Start: 05-02-2024 End: 05-02-2024 Patient encounter procedure Evens Palacios 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 Work Phone: [facility] Comment on above: Allergic contact shannan 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 (Primary Dx) Start: 05-02-2024 End: 05-02-2024 ambulatory [facility] Start: 04-28-2024 End: 04-28-2024 Subsequent hospital visit by physician Jayden Taylor MD Work Phone: [facility] [place] Comment on above: Endometriosis determ ined by laparoscopy (Primary Dx); Post-op pain Start: 04-27-2024 End: 04-27-2024 Office outpatient visit 25 minutes Ayaka Glenna Doss 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 Work Phone: [facility] Comment on above: Health maintenance e xamination (Primary Dx); Gastroesophageal reflux disease without esophagitis Start: 04-27-2024 End: 04-27-2024 Patient encounter status Ayaka Rootman 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 Work Phone: [facility] Work Phone: Start: 04-27-2024 End: 04-27-2024 ambulatory [facility] Start: 04-27-2024 End: 04-27-2024 Encounter for general adult medical examination without abnormal findings [facility] Start: 04-19-2024 End: 04-19-2024 ambulatory NO ASSIGNED PCP GENERIC PROVIDER [facility] Start: 04-19-2024 End: 04-19-2024 Encounter for other preprocedural examination NO ASSIGNED PCP GENERIC PROVIDER [facility] Start: 12-22-2023 End: 12-22-2023 Office outpatient visit 25 minutes Jayden Taylor MD Work Phone: [facility] Comment on above: Endometriosis determ ined by laparoscopy (Primary Dx); Dyspareunia in female Start: 10-29-2023 End: 10-29-2023 Postop follow up visit related to original px Jameel Hernandez MD Work Phone: [facility] Building Comment on above: Postoperative visit (Primary Dx); Endometriosis determined by laparoscopy Start: 10-14-2023 End: 10-14-2023 Subsequent hospital visit by physician Jameel Hernandez MD Work Phone: [facility] [place] Comment on above: Chronic pelvic pain in female (Primary Dx); PONV (postoperative nausea and vomiting) Start: 09-24-2023 End: 09-24-2023 Office outpatient visit 15 minutes Jameel Hernandez MD Work Phone: [facility] Comment on above: Chronic pelvic pain in female (Primary Dx); Dyspareunia in female Start: 04-28-2023 End: 04-28-2023 Office outpatient visit 25 minutes Sukh M Newbill PA-C Work Phone: [facility] Comment on above: Anxiety and depressi on (Primary Dx); Panic attack; Nausea in adult Start: 03-04-2023 End: 03-04-2023 Office outpatient visit 25 minutes Sukh M Newbill PA-C Work Phone: [facility] Comment on above: Anxiety and depressi on (Primary Dx); Injury of sacrum, initial encounter Start: 02-15-2023 ambulatory MD SHARDA RAYGOZA [facility] Facility:[id number] Start: 02-15-2023 Periodic preventive med est patient 18-39 yrs Sukh M Newbill Work Phone: [address] Work Phone: Start: 02-01-2023 ambulatory Sukh Newbill Facility:1 [id number] Start: 02-01-2023 ambulatory Sukh Newbill Facility:[id number] Start: 01-26-2023 End: 01-26-2023 Office outpatient visit 40 minutes Sukh M Newbill PA-C Work Phone: [facility] Comment on above: Anxiety and depressi on (Primary Dx); Panic attack; Bilious vomiting with nausea; Acute bilateral low back pain, unspecified whether sciatica present Start: 12-17-2022 Office outpatient ne w 45 minutes Sukh M Newbill Work Phone: [address] Work Phone: Start: 12-17-2022 ambulatory Jayden Taylor Facility :[id number] Start: 12-02-2022 NPV, Provider: Mariah Lr, Status: Pen, Time: 1:00 PM Sukh M Newbill Work Phone: [facility] Work Phone: Start: 12-02-2022 ambulatory Mariah Lr Facility: [id number] Start: 11-24-2022 Office outpatient vi sit 15 minutes Sukh Pollock Work Phone: [address] Work Phone: Start: 11-24-2022 ambulatory MD SHARDA RAYGOZA CIA CHÁVEZ Facility:[id number] Start: 11-19-2022 End: 11-19-2022 Emergency department patient visit Paola Pickard [facility] 10 Start: 11-03-2022 End: 11-03-2022 Office outpatient visit 25 minutes Sukh Pollock PA-C Work Phone: [facility] Comment on above: Anxiety and depressi on (Primary Dx); Panic attacks; Pharyngitis, unspecified etiology Start: 10-31-2022 End: 10-31-2022 Emergency department patient visit Freya Dial [facility] 01 Start: 09-28-2022 Chart Update Sukh Pollock Work Phone: [facility] Work Phone: Start: 09-23-2022 AUDIT Sukh Pollock Work Phone: [facility] Work Phone: Start: 09-21-2022 ambulatory Mr. Sukh lazar Phill Facility:[id number] Start: 09-21-2022 Office outpatient vi sit 25 minutes Sukh Pollock Work Phone: [facility] Work Phone: Start: 08-27-2022 AUDIT Sukh Pollock Work Phone: [facility] Work Phone: Start: 07-02-2022 ambulatory Mr. Sukh lazar Tatianacady Facility:[id number] Start: 06-01-2022 AUDIT Sukh Pollock Work Phone: [facility] Work Phone: Start: 05-22-2022 AUDIT Sukh Santiago Newbill Work Phone: [facility] Work Phone: Start: 05-21-2022 Office outpatient vi sit 25 minutes Sukh Santiago Newbill Work Phone: [facility] Work Phone: Start: 05-21-2022 ambulatory Mr. Sukh Pollock Facility:[id number] Start: 04-22-2022 Office outpatient vi sit 25 minutes Sukh Pamela Newbill Work Phone: [facility] Work Phone: Start: 04-22-2022 ambulatory Mr. Sukh Pollock Facility:[id number] Start: 02-11-2022 Office outpatient vi sit 25 minutes Sukh Pamela Newbill Work Phone: -Pulmonary Medicine-[facility] [address] DO Work Phone: Start: 01-28-2022 FUV, Provider: Sharda Chávez, Status: Pen, Time: 10:45 AM Sukh Pamela Griffinbill Work Phone: [facility] [address] Work Phone: Start: 01-28-2022 NPV, Provider: Solo Barnes, Status: Pen, Time: 9:00 AM Sukh Pamela Newbill [facility]: [facility] [address] Work Phone: Start: 01-28-2022 Office consultation new/estab patient 80 min Sukh M Newbill Work Phone: -Pulmonary Medicine-[place] DO Work Phone: Start: 01-26-2022 Chart Update Sukh Pamela Newbill [facility] Phone: [facility] [address] Work Phone: Start: 01-24-2022 Rx Renewal Sukh Pollock Work Phone: [facility] Work Phone: Start: 01-20-2022 Chart Update Sukh Pollock Work Phone: [facility] [address] [address] Work Phone: Start: 01-19-2022 Chart Update Sukh Pamela Pollock Work Phone: [facility] [address] [address] Work Phone: Start: 01-16-2022 Chart Update Sukh Pollock Work Phone: [facility] [address] [address] Work Phone: Start: 01-15-2022 Chart Update Sukh Pollock Work Phone: [facility] [address] [address] Work Phone: Start: 01-14-2022 Initial preventive medicine new pt age 18-39yrs Sukh Pollock Work Phone: [facility] [address] [address] Work Phone: Start: 01-01-2022 Chart Update Sukh Pollock Work Phone: [facility] Work Phone: Start: 12-31-2021 Office outpatient vi sit 15 minutes Sukh Pamela Pollock Work Phone: [facility] Work Phone: Start: 12-30-2021 AUDIT Sukh Pamela Eliasdean Work Phone: [facility] Work Phone: Start: 09-02-2021 Chart Update Sukh Pamela Eliasdean Work Phone: [facility] Work Phone: Start: 09-01-2021 Office outpatient vi sit 25 minutes Sukh Griffinramonital Work Phone: [facility] Work Phone: Start: 06-24-2021 Current tobacco non- user cad cap copd pv dm Sukh Pollock Work Phone: [facility] Work Phone: Procedures Date Procedure Procedure Detail Performing Clinician Start: 03-19-2025 Urine culture Ayaka huitron CONSTRUCTION CARPENTER-C Work Phone: Start: 01-26-2025 Hepatitis C antibody measurement Dr. Daniel Schneider DO Work Phone: Comment on above: Reactive: Presumptiv e evidence of antibodies to HCV. Follow CDC recommendations for supplemental testing.Non-Reactive: Antibodies to HCV were not detected; does not exclude the possibility of exposure to HCVReactive Results are presumptive evidence of antibodies to HCV. Follow CDC recommendations for supplemental testing.Order confirmation testing: HCV Quant by PCR testing - HCVPCR lc#[id number] Non Reactive: < 0.8 Equivocal: >/= 0.8 to < 1.0 Reactive: >/= 1.0The CDC requires that a reactive/equivocal HCV antibody result be sent out for confirmation. HCV Quant by PCR testing. Start: 01-26-[address] Daniel Schneider DO Work Phone: Comment on above: Antibody Result: Int erpretationNon-Reactive: Non- ImmuneReactive: ImmuneThe following results were obtained with the [employer] Rubella IgG assay. Results from assays of other manufacturers cannot be used interchangeably. Start: 01-26-2025 Serologic test for syphilis Dr. Daniel Schneider DO Work Phone: Start: 01-26-[address] Taylor Schneider DO Work Phone: Start: 01-02-2025 MEASURE POST VOID RESIDUAL Chad Valdez MD Work Phone: Start: 01-02-2025 Urnls dip stick/tabl et rgnt auto w/o microscopy Chad Valdez MD Work Phone: Start: 11-05-2024 Urnls dip stick/tabl et reagent auto microscopy Dr. Daniel Schneider DO Work Phone: Start: 11-05-2024 CT of abdomen and pe lvis without contrast Dr. Daniel Schneider DO Work Phone: Start: 11-05-[address] Daniel Schneider DO Work Phone: Start: 09-09-2024 POCT SARS-COV-2/FLU/ RSV PCR SYMPTOMATIC Evens Palacios 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 Work Phone: Start: 08-30-2024 Urnls dip stick/tabl et rgnt auto w/o microscopy Ayaka Glenna Doss 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 Work Phone: Start: 04-28-2024 End: 04-28-2024 PULSE OXIMETRY, CONTINUOUS Kenny alfaro MD Work Phone: Start: 04-28-2024 VERAB/VERIFY ABORH Jan Taylor MD Work Phone: Start: 04-28-2024 Urine test visual color cmprsn meths Jayden Taylor MD Work Phone: Start: 04-28-2024 Blood typing serolog ic rh (d) Jayden Taylor MD Work Phone: Start: 01-14-2022 Microscopic observat ion [Identifier] in Cervix by Cyto stain Sukh Pollock PA-C Work Phone: Start: 12-31-2021 Lipid 1996 panel - S eligio or Plasma Sukh Pollock PA-C Work Phone: Append[facility] Freya murphy Comment on above: 2019; Plan of Treatment Date Care Activity Detail Author Start: 2072 RSV VACCINE (1 - 1-dose 75+ series) RSV VACCINE (1 - 1-dose 75+ series) [facility] Start: 2047 Zoster Vaccines (1 of 2) Zoster Vaccines (1 of 2) [facility] Start: 02-03-2030 DTaP/Tdap/Td Vaccines (8 - Td or Tdap) DTaP/Tdap/Td Vaccines (8 - Td or Tdap) [facility] Start: 02-03-2030 Tetanus vaccination TETANUS U [facility] Start: 12-31-2026 Lipid panel Lipid Panel [facility] Start: 10-05-2025 End: 10-05-2025 Patient encounter procedure 10/05/2025 11:40 AM EST Office Visit [facility] [address] [place] [phone] [place] [address] [address] [facility], [facility] [address] [place] [address] [facility] Start: 05-22-2025 End: 05-22-2025 Patient encounter procedure 05/22/2025 9:00 AM EDT Office Visit Elsy Michael [address] [facility] [address] [place] [phone] Jayden Taylor MD [address] [facility], [facility] [address] [place] [address] Elsy Michael Start: 04-27-2025 End: 04-27-2025 Admission to same day surgery center 04/27/2025 11:00 AM EDT - 04/27/2025 12:00 PM EDT Surgery [facility] [place] [address] [place] [address] Jayden Taylor MD [address] [facility], [facility] [address] [place] [address] EXAM UNDER ANESTHESIA/ PELVIC FLOOR BOTOX INJECTION AD ANY INDICATED PROCEDURE [ (CPT )] [facility] [place] Comment on above: EXAM UNDER ANESTHESIA/ PELVIC FLOOR BOTO X INJECTION AD ANY INDICATED PROCEDURE [ (CPT )] Start: 04-27-2025 End: 04-27-2025 Injection single/police booking officer trigger point 3/> muscles INJECTION, TRIGGER POINT Pelvic pain 04/27/2025 11:00 AM EDT [facility] [place] Start: 04-27-2025 Subsequent hospital visit by physician 04/27/2025 9:30 AM EDT Hospital Encounter [facility] [place] [address] [place] [address] Jayden Taylor MD [address] [facility], Jordi [address] [place] [address] [facility] [place] Start: 04-10-2025 End: 04-10-2025 Telemedicine consultation with patient 04/10/2025 11:20 AM EDT Telemedicine [facility] [address] [place] [address] [place] [address] [facility], [place] [address] [place] [address] [facility] Start: 04-02-2025 Influenza vaccination INFLUENZA VACCINE (Season Ended) [facility] Start: 03-02-2025 End: 03-02-2025 Telemedicine consultation with patient 03/02/2025 11:30 AM EDT Telemedicine [facility] [address] [place], [place] [id number] Johann Haines MD [address] [facility] [address] [place] [address] [facility] Start: 02-01-2025 End: 02-01-2025 Patient encounter procedure 02/01/2025 9:40 AM EDT Office Visit [facility] [address] [facility] [address] [place] [address] Elizabeth Angel MD [facility] [address] [facility] [address] [place] [address] [facility] Start: 01-26-2025 CBC W Auto Differential panel - Blood [facility] Start: 01-26-2025 Hepatitis C antibody measurement [facility] Start: 01-26-2025 Rubella IgG measurement [facility] Start: 01-26-2025 Serologic test for syphilis [facility] Start: 01-26-2025 [facility] Start: 01-26-2025 Bacteria identified in Urine by Culture Urine Culture [facility] Start: 01-26-2025 Chlamydia deoxyribonucleic acid detection [facility] Start: 01-26-2025 [facility] Start: 01-14-2025 Screening for malignant neoplasm of cervix [facility] Start: 01-09-2025 End: 01-09-2025 Patient encounter procedure 01/09/2025 11:20 AM EDT Office Visit [facility] [address] [place] [address] [place] [address] [address] [facility], [address] [address] [facility] Start: 01-08-2025 End: 01-08-2025 Patient encounter procedure 01/08/2025 10:00 AM EDT Consult Elsy Michael [address] [facility] [address] [place] [phone] Farida Luong, 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 [address] [facility], Aiyana Michael, [facility] [address] [place], [place] [phone] Elsy Michael Start: 01-04-2025 End: 01-04-2026 2,3-DINOR-11 BETA-PROSTAGLANDIN F2 ALPHA, 24HR URINE 2,3-DINOR-11 BETA-PROSTAGLANDIN F2 ALPHA, 24HR URINE Fluids Routine Chronic urticaria Expected: 01/04/2025, Expires: 01/04/2026 [facility] Comment on above: Expected: 01/04/2025, Expires: Start: 01-04-2025 End: 01-04-2026 MAIUOPMHL-CDCBC-5,3-GAL ACTOSE IGE [facility] Comment on above: Expected: 01/04/2025, Expires: Start: 01-04-2025 End: 01-04-2026 IMMUNOGLOBULIN IGE [facility] Comment on above: Expected: 01/04/2025, Expires: Start: 01-04-2025 End: 01-04-2026 LEUKOTRIENE E4, URINE LEUKOTRIENE E4, URINE Fluids Routine Chronic urticaria Expected: 01/04/2025, Expires: 01/04/2026 [facility] Comment on above: Expected: 01/04/2025, Expires: Start: 01-04-2025 End: 01-04-2026 MAST CELL TRYPTASE [facility] Comment on above: Expected: 01/04/2025, Expires: Start: 01-04-2025 End: 01-04-2026 N-METHYLHISTAMINE, 24HR URINE N-METHYLHISTAMINE, 24HR URINE Fluids Routine Chronic urticaria Expected: 01/04/2025, Expires: 01/04/2026 [facility] Comment on above: Expected: 01/04/2025, Expires: Start: 01-04-2025 End: 01-04-2025 Patient encounter procedure 01/04/2025 10:00 AM EDT Office Visit Elsy Michael [address] [phone] Jayden Taylor MD [address] [facility], [facility] [address] [place] [address] Elsy Michael Start: 12-28-2024 End: 12-28-2024 Admission to same day surgery center 12/28/2024 11:00 AM EDT - 12/28/2024 12:00 PM EDT Surgery [facility] [place] [address] [place] [address] Jayden Taylor MD [address] [facility], [place] [place] [address] EXAM UNDER ANESTHESIA/ PELVIC FLOOR BOTOX INJECTION AD ANY INDICATED PROCEDURE [ (CPT )] [facility] [place] Comment on above: EXAM UNDER ANESTHESIA/ PELVIC FLOOR BOTO X INJECTION AD ANY INDICATED PROCEDURE [ (CPT )] Start: 12-28-2024 End: 12-28-2024 Injection single/police booking officer trigger point 3/> muscles INJECTION, TRIGGER POINT Pelvic pain 12/28/2024 11:00 AM EDT [facility] Work Phone: Start: 12-28-2024 Subsequent hospital visit by physician 12/28/2024 9:30 AM EDT Hospital Encounter [facility] [place] [address] [place] [address] Jayden Taylor MD [address] [facility], [place] [place], [place] [phone] [facility] [place] Start: 11-10-2024 End: 11-10-2024 Patient encounter procedure 11/10/2024 3:00 PM EDT Office Visit [facility] [address] [facility] [address] [place] [phone] [place] [address] [address] [facility], [facility] [address] [place] [address] [facility] Start: 11-05-2024 [facility] Start: 09-20-2024 End: 09-20-2025 Choriogonadotropin.beta subunit [Units/volume] in Serum or Plasma HCG, quantitative, Lab Routine , unspecified gestational age ([facility]) Expected: 09/20/2024 (Approximate), Expires: 09/20/2025 [facility] Work Phone: Comment on above: Expected: 09/20/2024 (Approximate), Expi res: 09/20/2025 Start: 09-20-2024 End: 09-20-2025 XR Chest 2 Views XR chest 2 views Imaging Rou siobhan Bronchitis Expected: 09/20/2024, Expires: 09/20/2025 [facility] Service Area Work Phone: Comment on above: Expected: 09/20/2024, Expires: Start: 09-01-2024 End: 09-01-2024 Patient encounter procedure 09/01/2024 4:45 PM EST Appointment [facility] [address] [place] [address] [facility] Start: 08-30-2024 End: 08-30-2025 US Kidney - bilateral and Urinary bladder US renal complete Imaging Routine UTI symptoms Expected: 08/30/2024, Expires: 08/30/2025 [facility] Service Area Work Phone: Comment on above: Expected: 08/30/2024, Expires: Start: 06-01-2024 End: 06-01-2024 Patient encounter procedure 06/01/2024 10:30 AM EDT Office Visit Elsy Michael [address] [facility] [address] [place] [phone] Jayden Taylor MD [address] [facility], [place] [place] [address] Elsy Michael Start: 04-28-2024 End: 04-28-2024 Admission to same day surgery center 04/28/2024 7:30 AM EDT - 04/28/2024 10:30 AM EDT Surgery [facility] [place] [address] [place] [address] Jayden Taylor MD [address] [facility], [place] [address] [place] [address] ROBOT ASSIST ENDOMETRIOSIS EXCISION/ CHROMOPERTUBATION/ CYSTOSCOPY/ POSSIBLE BLADDER RESECTION/ ANY INDICATED PROCEDURE [94414 (CPT )] [facility] [place] Comment on above: ROBOT ASSIST ENDOMETRIOSIS EXCISION/ CHR OMOPERTUBATION/ CYSTOSCOPY/ POSSIBLE BLADDER RESECTION/ ANY INDICATED PROCEDURE [80128 (CPT )] Start: 04-28-2024 End: 04-28-2024 Laps abd prtm&omentum dx w/wo spec br/wa spx [facility] [place] Start: 04-28-2024 Subsequent hospital visit by physician 04/28/2024 6:00 AM EDT Hospital Encounter [facility] [place] [address] [place] [address] Jayden Taylor MD [address] [facility], [place] [address] [facility] [place] [address] [facility] [place] Start: 04-27-2024 End: 04-27-2025 CBC W Auto Differential panel - Blood CBC and Auto Differential Lab Routine Health maintenance examination Expected: 04/27/2024 (Approximate), Expires: 04/27/2025 [facility] Service Area Work Phone: Comment on above: Expected: 04/27/2024 (Approximate), Expi res: 04/27/2025 Start: 04-27-2024 End: 04-27-2025 Comprehensive metabolic 2000 panel - Serum or Plasma Comprehensive metabolic panel Lab Routine Health maintenance examination Expected: 04/27/2024 (Approximate), Expires: 04/27/2025 [facility] Work Phone: Comment on above: Expected: 04/27/2024 (Approximate), Expi res: 04/27/2025 Start: 04-27-2024 End: 04-27-2025 TSH with reflex to Free T4 if abnormal TSH with reflex to Free T4 if abnormal Lab Routine Health maintenance examination Expected: 04/27/2024 (Approximate), Expires: 04/27/2025 [facility] Work Phone: Comment on above: Expected: 04/27/2024 (Approximate), Expi res: 04/27/2025 Start: 04-02-2024 COVID-19 Vaccine ( season) COVID-19 Vaccine ( season) [facility] Start: 04-02-2024 COVID-19 Vaccine ( season) COVID-19 Vaccine () [facility] Start: 04-02-2024 Influenza vaccination [facility] Start: 02-18-2024 Patient encounter procedure ANNUAL, Provider: Sharda Chávez, Status: Pen, Time: 10:45 AM Carlos-Angel Adame Work Phone: Start: 02-18-2024 End: 02-18-2024 Patient encounter procedure [facility] Start: 10-29-2023 End: 10-29-2023 Patient encounter procedure 10/29/2023 3:45 PM EDT Office Visit [facility] Medical Office [facility] [address] [place] [address] Jameel Hernandez MD [address] [facility], [address] [id number] [facility] Medical Office [facility] Start: 10-21-2023 End: 10-21-2023 Patient encounter procedure 10/21/2023 3:50 PM EDT Office Visit [facility] [address] [place] [phone] Sukh Pollock PA-C [facility], [address] [address] [facility] Start: 10-14-2023 Subsequent hospital visit by physician 10/14/2023 Hospital [place] [facility] [place] [address] [place] [phone] Jameel Hernandez MD [address] [facility], [facility] [address] [place] [address] [facility] [place] Start: 09-06-2023 End: 09-06-2023 Patient encounter procedure 09/06/2023 4:10 PM EST Office Visit [facility] [address] [place] [phone] Sukh Pollock PA-C [address] [place] [address] Physician [place], [place] [id number] [facility] Start: 05-27-2023 End: 05-27-2023 Patient encounter procedure 05/27/2023 12:50 PM EDT Office Visit [facility] [address] [place] [phone] Sukh Pollock PA-C [address] [facility] [place] [address] [facility] Start: 04-02-2023 COVID-19 Vaccine ( season) COVID-19 Vaccine () [facility] Start: 04-02-2023 Influenza vaccination [facility] Start: 03-04-2023 FUV, Provider: Nirmala Alex, Status: Pen, Time: 1:30 PM FUV, Provider: Nirmala Alex, Status: Pen, Time: 1:30 PM [id number] Work Phone: Start: 03-04-2023 End: 03-04-2023 Patient encounter procedure 03/04/2023 9:30 AM EDT Office Visit [facility] [address] [place] [phone] Sukh Pollock PA-C [address] [facility] [place] [address] [facility] Start: 02-15-2023 Patient encounter procedure [facility] Start: 01-26-2023 End: 01-27-2024 [facility] Work Phone: Comment on above: Expected: 01/26/2023, Expires: Start: 01-26-2023 End: 01-27-2024 XR Lumbar spine 4 Views XR lumbar spine complete 4+ views Imaging Routine Acute bilateral low back pain, unspecified whether sciatica present Expected: 01/26/2023, Expires: 01/27/2024 [facility] Service Area Work Phone: Comment on above: Expected: 01/26/2023, Expires: Start: 01-05-2023 FUV, Provider: Sukh Pollock, Status: Pen, Time: 9:30 AM FUV, Provider: Sukh Pollock, Status: Pen, Time: 9:30 AM [facility] Work Phone: Start: 01-05-2023 End: 01-05-2023 Patient encounter procedure 01/05/2023 9:30 AM EDT Office Visit [facility] [address] [place] [address] Sukh Pollock, PAVeraC [address] [facility] [place] [address] [facility] Start: 12-17-2022 FUV, Provider: Jayden Taylor, Status: Pen, Time: 8:45 AM FUV, Provider: Jayden Taylor, Status: Pen, Time: 8:45 AM [facility] Work Phone: Start: 12-02-2022 NPV, Provider: Mariah Lr, Status: Pen, Time: 1:00 PM NPV, Provider: Mariah Lr, Status: Pen, Time: 1:00 PM [facility] Work Phone: Start: 11-30-2022 NEWPROB, Provider: Sharda Chávez, Status: Pen, Time: 1:45 PM NEWPROB, Provider: Sharda Chávez, Status: Pen, Time: 1:[address] Work Phone: Start: 07-02-2022 FUV, Provider: Sukh Pollock, Status: Pen, Time: 4:30 PM FUV, Provider: Sukh Pollock, Status: Pen, Time: 4:30 PM [facility] Work Phone: Start: 05-21-2022 FUV, Provider: Sukh Pollock, Status: Pen, Time: 4:30 PM FUV, Provider: Sukh Pollock, Status: Pen, Time: 4:30 PM [facility] Work Phone: Start: 02-25-2022 FUV, Provider: Solo Barnes, Status: Pen, Time: 9:00 AM FUV, Provider: Solo Barnes, Status: Pen, Time: 9:00 AM [facility] [address] Work Phone: Start: 02-16-2022 PFT, Provider: [facility] PFT ROOM,[id number], Status: Pen, Time: 1:00 PM PFT, Provider: [facility] PFT ROOM,[id number], Status: Pen, Time: 1:00 PM [facility] [address] DO Work Phone: Start: 02-11-2022 FUV, Provider: Solo Barnes, Status: Pen, Time: 10:00 AM FUV, Provider: Solo Barnes, Status: Pen, Time: 10:00 AM [facility] 400 DO Work Phone: Start: 01-28-2022 FUV, Provider: Sharda Chávez, Status: Pen, Time: 10:45 AM FUV, Provider: Sharda Chávez, Status: Pen, Time: 10:45 AM [facility] [address] Work Phone: Start: 01-28-2022 NPV, Provider: Solo Barnes, Status: Pen, Time: 9:00 AM NPV, Provider: Solo Barnes, Status: Pen, Time: 9:00 AM [facility] [address] Work Phone: Start: 01-14-2022 NPV, Provider: Sharda Chávez, Status: Pen, Time: 11:00 AM NPV, Provider: Sharda Chávez, Status: Pen, Time: 11:00 AM [facility] Work Phone: Start: 2018 Screening for malignant neoplasm of cervix [facility] Start: 2016 Pneumococcal Vaccine: Pediatrics and At-Risk Adult Patients (1 of 2 - PCV) Pneumococcal Vaccine: Pediatrics and At-Risk Adult Patients (1 of 2 - PCV) [facility] Start: 2015 Diabetes mellitus screening Diabetes Screening [facility] Start: 2015 Hepatitis C screening Hepatitis C Screening [facility] Start: 2012 HIV screening HIV SCREENING DISCUSSION [facility] Start: 06-12-2010 Varicella vaccination [facility] Start: 2003 Pneumococcal Vaccine: Pediatrics (0 to 5 Years) and At-Risk Patients (6 to 64 Years) (1 - PCV) Pneumococcal Vaccine: Pediatrics (0 to 5 Years) and At-Risk Patients (6 to 64 Years) (1 - PCV) [facility] Start: 2003 Pneumococcal Vaccine: Pediatrics (0 to 5 Years) and At-Risk Patients (6 to 64 Years) (1 of 2 - PCV) Pneumococcal Vaccine: Pediatrics (0 to 5 Years) and At-Risk Patients (6 to 64 Years) (1 of 2 - PCV) [facility] Start: 1997 COVID-19 Vaccine (#1) COVID-19 Vaccine (#1) [facility] Start: 1997 Hepatitis C screening HEPATITIS C VIRUS SCREENING [facility] Start: 1997 HIV screening HIV Screening [facility] Start: 1997 Yearly Adult Physical Yearly Adult Physical [facility] End: 10-14-2023 Continuous Pulse oximetry, In Phase 1 [facility] Service Area Work Phone: Comment on above: Continuous until discontinued starting 0 10/14/2023 Erythrocyte mean corpuscular volume determination [facility] Hematocrit [Volume Fraction] of Blood [facility] Hemoglobin [Mass/volume] in Blood [facility] Hepatitis B virus surface Ag [Presence] in Serum [facility] History of appendectomy History of append ectomy [facility] History of colonoscopy [facility] Laps abd prtm&omentu m dx w/wo spec br/wa spx Exploration Laparoscopy Chronic pelvic pain in female Virtual LAN OR Laps abd prtm&omentu m dx w/wo spec br/wa spx Exploration Laparoscopy Endometriosis determined by laparoscopy Virtual PAR OR Leukocytes [#/volume ] in Blood [facility] Mean corpuscular hemoglobin concentration determination [facility] Mean corpuscular hemoglobin determination [facility] Neisseria gonorrhoea e rRNA [Presence] in Unspecified specimen by SHANAE with probe detection [facility] Neutrophil count [facility] Neutrophil percent differential count [facility] Past history of procedure History of esophagogastroduodenoscopy (EGD) [facility] Patient Education Living with Endometrios is [facility] Work Phone: Patient referral [facility] Work Phone: PCR test for Chlamyd ia trachomatis [facility] Platelets [#/volume] in Blood [facility] Red blood cell count [facility] Red cell distributio n width determination [facility] Surgical pathology study [facility] Service Area Work Phone: Comment on above: Release Upon Ordering for 1 Occurrences starting 04/28/2024, 1 completed Urine culture [facility] End: 08-31-2024 US Kidney - bilateral and Urinary bladder [facility] Service Area Work Phone: Comment on above: Once for 1 Occurrences starting 08/31/19 until 08/31/2024 [place] teeth extra cted [facility] End: 09-22-2024 XR Chest 2 Views [facility] Service Area Work Phone: Comment on above: Once for 1 Occurrences starting 09/22/19 until 09/22/2024 [facility] Immunizations Immunization Date Immunization Notes Care Provider Fa quan 02-04-2020 tetanus toxoid, redu bette diphtheria toxoid, and acellular pertussis vaccine, adsorbed Sukh Pollock Work Phone: [facility] 02-06-2014 meningococcal polysaccharide (groups A, C, Y and W-135) diphtheria toxoid conjugate vaccine (MCV4P) Sukh Pollock Work Phone: [facility] 05-15-2011 hepatitis A vaccine, pediatric/adolescent dosage, 2 dose schedule Sukh Pamela Newbill Work Phone: [facility] Work Phone: 05-15-2011 hepatitis A vaccine, unspecified formulation Sukh Newbill PA-C Work Phone: [facility] Work Phone: 05-15-2011 influenza, seasonal, injectable Sukh M Newbill Work Phone: [facility] 05-15-2011 influenza virus vacc ine, unspecified formulation Sukh Newbill PA-C Work Phone: [facility] Work Phone: 05-15-2010 influenza virus vacc ine, live, attenuated, for intranasal use Sukh Pamela Newbill Work Phone: [facility] Work Phone: 11-20-2009 hepatitis A vaccine, pediatric/adolescent dosage, 2 dose schedule Sukh M Newbill Work Phone: [facility] Work Phone: 11-20-2009 hepatitis A vaccine, unspecified formulation Sukh Newbill PA-C Work Phone: [facility] Work Phone: 11-20-2009 HPV, unspecified formulation Sukh Newbill PA-C Work Phone: [facility] Work Phone: 11-20-2009 human papilloma viru s vaccine, quadrivalent Sukh M Newbill Work Phone: [facility] Work Phone: 07-17-2009 HPV, unspecified formulation Sukh Newbill PA-C Work Phone: [facility] Work Phone: 07-17-2009 human papilloma viru s vaccine, quadrivalent Sukh M Newbill Work Phone: [facility] Work Phone: 05-15-2009 HPV, unspecified formulation Sukh Pollock PA-C Work Phone: [facility] Work Phone: 05-15-2009 human papilloma viru s vaccine, quadrivalent Sukh Pollock Work Phone: [facility] Work Phone: 05-15-2009 influenza, seasonal, injectable, preservative free Sukh Pollock Work Phone: [facility] Work Phone: 05-15-2009 meningococcal polysaccharide (groups A, C, Y and W-135) diphtheria toxoid conjugate vaccine (MCV4P) Sukh Pollock Work Phone: [facility] 05-15-2009 tetanus toxoid, redu bette diphtheria toxoid, and acellular pertussis vaccine, adsorbed Sukh Pollock Work Phone: [facility] 03-23-2002 diphtheria, tetanus toxoids and acellular pertussis vaccine Sukh Simpsonl PA-C Work Phone: [facility] Work Phone: 03-23-2002 diphtheria, tetanus toxoids and acellular pertussis vaccine, unspecified formulation Sukh Pollock Work Phone: [facility] Work Phone: 03-23-2002 pneumococcal conjuga te vaccine, 7 valent Sukh Simpsonl Work Phone: [facility] Work Phone: 03-23-2002 pneumococcal Conjuga te, unspecified formulation Sukh Simpsonl PA-C Work Phone: [facility] Work Phone: 03-23-2002 poliovirus vaccine, inactivated Sukh Pollock Work Phone: [facility] Work Phone: 03-23-2002 poliovirus vaccine, unspecified formulation Sukh Newbill PA-C Work Phone: [facility] Work Phone: 02-09-2001 pneumococcal conjuga te vaccine, 7 valent Sukh Santiago Newbill Work Phone: [facility] Work Phone: 02-09-2001 pneumococcal Conjuga te, unspecified formulation Sukh Newbill PA-C Work Phone: [facility] Work Phone: 09-01-2000 diphtheria, tetanus toxoids and acellular pertussis vaccine, unspecified formulation Sukh Griffinbill Work Phone: [facility] Work Phone: 09-01-2000 measles, mumps and rubella virus vaccine Sukh Griffinbill Work Phone: [facility] Work Phone: 11-19-1999 diphtheria, tetanus toxoids and acellular pertussis vaccine Sukh Simpsonl PA-C Work Phone: [facility] Work Phone: 11-19-1999 diphtheria, tetanus toxoids and acellular pertussis vaccine, unspecified formulation Sukh Griffinbill Work Phone: [facility] Work Phone: 11-19-1999 haemophilus influenz ae type b conjugate and Hepatitis B vaccine Sukh Pamela Newbill Work Phone: [facility] Work Phone: 11-19-1999 haemophilus influenz ae type b vaccine, conjugate unspecified formulation Sukh Newbill PA-C Work Phone: [facility] Work Phone: 11-19-1999 hepatitis B vaccine, unspecified formulation Sukh Newbill PA-C Work Phone: [facility] Work Phone: 11-19-1999 measles, mumps and rubella virus vaccine Sukh Simpsonl Work Phone: [facility] Work Phone: 11-19-1999 poliovirus vaccine, unspecified formulation Sukh Newbill PA-C Work Phone: [facility] Work Phone: 11-19-1999 trivalent poliovirus vaccine, live, oral Sukh Pollock Work Phone: [facility] Work Phone: 01-01-1999 diphtheria, tetanus toxoids and acellular pertussis vaccine Sukh Newbill PA-C Work Phone: [facility] Work Phone: 01-01-1999 diphtheria, tetanus toxoids and acellular pertussis vaccine, unspecified formulation Sukh Pollock Work Phone: [facility] Work Phone: 01-01-1999 haemophilus influenz ae type b conjugate and Hepatitis B vaccine Sukh Griffinbill Work Phone: [facility] Work Phone: 01-01-1999 haemophilus influenz ae type b vaccine, conjugate unspecified formulation Sukh Newbill PA-C Work Phone: [facility] Work Phone: 01-01-1999 hepatitis B vaccine, unspecified formulation Sukh Newbill PA-C Work Phone: [facility] Work Phone: 01-01-1999 poliovirus vaccine, unspecified formulation Sukh Newbill PA-C Work Phone: [facility] Work Phone: 01-01-1999 trivalent poliovirus vaccine, live, oral Sukh Pamela Newbill Work Phone: [facility] Work Phone: 1997 diphtheria, tetanus toxoids and acellular pertussis vaccine Sukh Newbill PA-C Work Phone: [facility] Work Phone: 1997 diphtheria, tetanus toxoids and acellular pertussis vaccine, unspecified formulation Sukh Pamela Newbill Work Phone: [facility] Work Phone: 1997 haemophilus influenz ae type b conjugate and Hepatitis B vaccine Sukh Pamela Newbill Work Phone: [facility] Work Phone: 1997 haemophilus influenz ae type b vaccine, conjugate unspecified formulation Sukh Newbill PA-C Work Phone: [facility] Work Phone: 1997 hepatitis B vaccine, unspecified formulation Sukh Newbill PA-C Work Phone: [facility] Work Phone: 1997 poliovirus vaccine, unspecified formulation Sukh Newbill PA-C Work Phone: [facility] Work Phone: 1997 trivalent poliovirus vaccine, live, oral Skuh Pamela Newbill Work Phone: [facility] Work Phone: Payers Date Payer Category Payer Self-pay 2023 [facility] (Private) [facility] [id number] 2023 Managed Care (unspecified) [employer] [id number] 2021 Unknown [id number] 2017 Unknown 2017 Unknown [id number] 1997 Unknown [id number] 2.0.1.737019.3.579.2. 1069 1997 Unknown [id number] 2.0.1.469089.3.579.2. 1069 1997 Unknown [id number] 2.1.017768.3.579.2. 1069 1997 Unknown [id number] 2.1.437951.3.579.2. 106 1997 Unknown [id number] 2.840.1.905322.3.579.2. 356 1997 Unknown [id number] 2.0.1.740680.3.579.2. 356 1997 Unknown [id number] 2.0.1.920170.3.579.2. 356 1997 Unknown [id number] 2.840.1.115894.3.579.2. 356 1997 Unknown [id number] 2.16.840.1.865394.3.579.2. 356 1997 Unknown [id number] 2.16.840.1.152435.3.579.2. 356 1997 Unknown [id number] 2.16.840.1.134965.3.579.2. 356 1997 Unknown [id number] 2.16.840.1.752959.3.579.2. 356 1997 Unknown [id number] 2.16.840.1.308193.3.579.2. 902 1997 Unknown [id number] 2.16.840.1.511147.3.579.2. 1247 1997 Unknown [id number] 2.16.840.1.842932.3.579.2. 1247 1997 Unknown [id number] 2.16.840.1.974260.3.579.2. 1247 1997 Unknown [id number] 2.16.840.1.550891.3.579.2. 1243 1997 Unknown [id number] 2.16.840.1.813018.3.579.2. 1243 1997 Unknown [id number] 2.16.840.1.245237.3.579.2. 1243 1997 Unknown [id number] 2.16.840.1.300225.3.579.2. 1243 1997 Unknown [id number] 2.16.840.1.046469.3.579.2. 1243 1997 Unknown [id number] 2.16.840.1.337995.3.579.2. 1244 1997 Unknown [id number] 2.16.840.1.565486.3.579.2. 1244 1997 Unknown [id number] 2.16.840.1.820846.3.579.2. 1244 1997 Unknown [id number] 2.16.840.1.252932.3.579.2. 1244 1997 Unknown [id number] 2.16.840.1.439843.3.579.2. 1244 1997 Unknown [id number] 2.16.840.1.473508.3.579.2. 1244 1997 Unknown [id number] 2.16.840.1.046757.3.579.2. 594 1997 Unknown [id number] 2.16.840.1.472168.3.579.2. 594 1997 Unknown [id number] 2.16.840.1.508808.3.579.2. 594 1997 Unknown [id number] 2.16.840.1.804771.3.579.2. 1245 1997 Unknown [id number] 2.16840.1.671903.3.579.2. 1245 1997 Unknown [id number] 2.16.840.1.486825.3.579.2. 479 1997 Unknown [id number] 2.16.840.1.614832.3.579.2. 479 Unknown [id number] Unknown [id number] Unknown [id number] 2.16840.1.264837.3.579.2. 462 Unknown [id number] 2.16.840.1.296872.3.579.2. 462 Unknown [id number] 2.16.840.1.519817.3.579.2. 462 Unknown [id number] 2.16.840.1.395641.3.579.2. 462 Unknown [id number] 2.16.840.1.064342.3.579.2. 462 Unknown [id number] 2.16.840.1.841365.3.579.2. 462 Unknown [id number] 2.16.840.1.011207.3.579.2. 462 Unknown [id number] 2.16.840.1.429333.3.579.2. 462 Unknown [id number] 2.16.840.1.716291.3.579.2. 462 Unknown [id number] 2.16.840.1.958997.3.579.2. 462 Social History Date Type Detail Facility Start: 11-03-2022 End: 04-28-2023 Uses control Uses control -[facility] Work Phone: Tobacco smoking consumption unknown [facility] Start: 11-03-2022 End: 01-12-2025 Tobacco smoking status NHIS Never smoked tobacco [facility] Start: 11-03-2022 End: 01-02-2025 Alcohol intake Current drinker of alcohol (finding) [facility] Work Phone: Start: 11-03-2022 End: 04-28-2023 Tobacco use panel [facility] Work Phone: Start: 1995 Sex Assigned At Not on file [facility] Work Phone: Start: 10-24-2022 End: 01-02-2025 Exposure to SARS-CoV-2 (event) Not sure [facility] Start: 01-26-2023 End: 10-11-2023 Tobacco use and exposure Smokeless tobacco non-user [facility] Work Phone: Start: 09-24-2023 Alcohol Comment socially- 3-5 a ashley h [facility] Work Phone: Start: 10-11-2023 Tobacco smoking status NHIS Occasional tobacco smoker [facility] History of tobacco use Cigarette Smoker [facility] Work Phone: Start: 10-11-2023 Tobacco Comment socially [facility] Work Phone: Start: 1995 Sex Assigned At Female [facility] Start: 10-14-2023 Gender identity Identifies as female gender (finding) [facility] Work Phone: Start: 06-04-2024 End: 11-24-2024 Exposure to SARS-CoV-2 (event) Unable to assess [facility] Start: 11-05-2024 End: 11-23-2024 Sex Female (finding) [facility] Start: 01-04-2025 Alcohol Comment social [facility] Start: 12-08-2024 [facility] NEGATED: Highlighted row - - [facility] [employer] Work Phone: Goals Date Patient Goal Desired Activity /State Personal health goal Functional Status Date Assessment Result Facility NEGATED: Highlighted row Functional performance Functional status health issues are not documented Disease [facility] [employer] Work Phone: Mental Status Date Assessment Result Facility NEGATED: Highlighted row Cognitive function [Interpretation] Cognitive status health issues are not documented Disease [facility] [employer] Work Phone: Clinical Notes 01-10-2018 to 03-19-2025 Note Date & Type Note Facility 03-19-2025 Progress note [facility] 03-19-2025 Progress note Note Date/Time March 19, 2025 3:31pm [facility] [address], [address] [place] [address] OFFICE VISIT Date of Service: 03/19/25 MR#: [id number] Acct: [id number] Name: KM STRANGE Rep #: [id number] : 1995 Provider: SHI Harrell Age/Sex: 29/F Location: [facility] Status: Signed Intake Vital Signs 01/26/25 13:35 02/22/25 09:25 03/19/25 15:12 Height 5 ft 5 ft 5 ft Weight: 142 lb 6 oz BMI 27.8 BP 103/70 Intake Visit Reasons: 17wk ob Chief Complaint: 17wk OB [employer] Required: No Is patient in pain?: No Allergies Sulfa (Sulfonamide Antibiotics) Allergy (Intermediate, Verified 03/19/25 15:11) Hives Medications ?Medication ?Instructions ?Recorded ?Confirmed ?Type pantoprazole 40 mg tablet,delayed 40 mg PO DAILY 02/1803/19/25 History release ondansetron 4 mg disintegrating 4 mg PO Q8H PRN PRN Na usea #10 tabs 11/05/24 03/19/25 Rx tablet coQ10 (ubiquinol) 100 mg capsule 100 mg PO BID 5 03/19/25 History (QH-absorb) docosahexaenoic acid 200 mg mg PO 01/12/25 03/19/25 Hi story capsule ( DHA) docusate sodium 100 mg capsule 100 mg PO QDAY 01/12/25 03/19/25 History loratadine 10 mg tablet (Claritin) 10 mg PO QDAY 01/1203/19/25 History sertraline 50 mg tablet (Zoloft) 50 mg PO QDAY 5 03/19/25 History Last Menstrual Period: 11/24/24 : No PFSH PFSH Medical History Arthritis Asthma Surgical History S/P laparoscopic procedure History of appendectomy Family History Mother Diabetes Hypertension Thyroid cancer Cervical cancer Father Hypertension Social History adopted: No household members: spouse housing: house current occupational status: employed 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 occupational exposures/hazards: No pets and animals: Yes pets and animals: dog(s) history of recent travel: No sexually active: Yes Smoking Status: Never smoker second hand exposure: No alcohol intake: current alcohol intake frequency: holidays/special occasions only details: Not while substance use type: does not use well-balanced diet: daily or most days caffeine: Yes Type: coffee eating out: rarely or never during the past year weight has: remained stable what type of physical activity do you participate in: walking ken/restorationist: Yazidi seatbelt use: always do you feel safe at home: Yes 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 OB Visit ERIN Calculator Estimated Delivery Date Method Current WG Current Estimate 08/31/25 LMP (Certain) 16w 3d Expected Delivery Route/Plan Labor Preferences- CB/BF classes: [] labor support person: [] labor intervention preferences: [] pain management options preferred: [] cut cord/dad catch: [] : [] PP control planned: [] discussed possible routes of delivery and associated risks: [] special requests: [] Specific Issue/Plans Covid status: [] Flu vaccine: [] Tdap vaccine: [] Rhogam: [] LARC form signed: [] Problem list reviewed and updated with the most current plan of care details and appropriate orders placed. Relevant counseling for the gestational age provided. Continue routine care and follow up unless otherwise noted in visit notes/problem list details Initial Weight: Not Recorded Date -?-?-?-?-?-?-?-?-?-?-?-?- EGA Weight BP Urine Prot -?-?-?-?-?-?-?-?-?-?-?-?- Glucose FHR FuHt Pres Dilation -?-?-?-?-?-?-?-?-?-?-?-?- Effaced St Visit Note 01/26/25 -?-?-?-?-?-?-?-?-?-?-?-?- 9w 0d 128 lb 8 oz 106/74 -?-?-?-?-?-?-?-?-?-?-?-?- 175 -?-?-?-?-?-?-?-?-?-?-?-?- LC- CRL 1.75cm c on with lmp. declines nipt. 02/22/25 -?-?-?-?-?-?-?-?-?-?-?-?- 12w 6d 133 lb 6 oz 103/72 Nega tive -?-?-?-?--?-?-?-?-?-?-?-?- Negative 150 -?-?-?-?-?-?-?-?-?-?-?-?- SM- no vb crampi ng discussed PFPT to help with pelvic floor dysfunction 03/19/25 -?-?-?-?-?--?-?-?-?-?-?-?- 16w 3d 142 lb 6 oz 103/70 Nega tive -?-?-?-?-?-?-?-?-?-?-?-?- Negative 154 -?-?-?-?-?-?-?-?-?-?-?-?- KW- no vb/crampi ng. having some pelvic pressure- 10 dip normal but will send for culture. declines AFP. M US scheduled. ACOG First Trimester First Trimester: Desire for , Alcohol, Tobacco Cessation, Illicit/Recreational Drug/Substance Use, Intimate Partner Violence, Barriers to care, Unstable Housing, Communication Barriers, Environmental/Work Hazards, Anticipated Course of Care, Toxoplasmosis Precations, Use of Any medications, Sexual activity, Exercise, Dental Care, Sauna/Hot tub use, Seat Belt use, Childbirth classes/Hospital facilities, Travel, Indications for Ultrasound and Screening for Aneuploidy; Discussed ROS Const Reports system reviewed and no additional complaints, except as documented Eyes Reports system reviewed and no additional complaints, except as documented ENT Reports system reviewed and no additional complaints, except as documented Card Reports system reviewed and no additional complaints, except as documented Resp Reports system reviewed and no additional complaints, except as documented GI Reports system reviewed and no additional complaints, except as documented, Denies nausea and Denies vomiting Reports system reviewed and no additional complaints, except as documented Musc Reports system reviewed and no additional complaints, except as documented Skin/Breast Reports system reviewed and no additional complaints, except as documented Neuro Yes system reviewed and no additional complaints, except as documented Psych Reports system reviewed and no additional complaints, except as documented Endo Reports system reviewed and no additional complaints, except as documented Jensen/Lymph Reports system reviewed and no additional complaints, except as documented Aller/Immun Reports system reviewed and no additional complaints, except as documented Exam Const General: cooperative, healthy appearing and no acute distress Orientation: alert, awake and oriented x3 Neck Neck: normal visual inspection and full ROM Resp Effort & Inspection: normal respiratory effort, able to speak in complete sentences and symmetric chest movement GI Inspection: normal to inspection Palpation: soft and other Other: gravid Skin General: no rashes or lesions noted Neuro General: patient alert, patient awake and patient oriented x3 Cognition: normal cognition Speech: speech normal Gait: normal gait Motor: muscle tone normal throughout Extrem General: normal to inspection and full ROM Psych Appearance: grossly normal Mental Status: mental status grossly normal Mood: congruent mood Affect: normal affect Speech and Movement: speech and movement normal Attitude: cooperative Thought Process: normal Thought Content: normal Judgment: judgment good Results POC Urinalysis Dip (Clinic) Office Urine Color Yellow Last Edit by Marta Freire on 03/19/25 15:24 Office Urine Clarity Clear Last Edit by Marta Freire on 03/19/25 15:24 Office Urine Glucose Negative Last Edit by Marta Freire on 03/19/25 15:24 Office Urine Ketones Negative Last Edit by Marta Freire on 03/19/25 15:24 Off Ur Spec [place] 1.010 Last Edit by Marta Freire on 03/19/25 15:24 Office Urine pH 6.5 Last Edit by Marta Freire on 03/19/25 15:24 Office Urine Bilirubin Negative Last Edit by Marta Freire on 03/19/25 15:24 Office Urine Urobilinogen Negative Last Edit by Marta Freire on 03/19/25 15: 24 Office Urine Blood Negative Last Edit by Marta Freire on 03/19/25 15:24 Office Urine Blood Hemolyzed NA Last Edit by Marta Freire on 03/19/25 15:24 Office Urine Protein Negative Last Edit by Marta Freire on 03/19/25 15:24 Office Urine Nitrate Negative Last Edit by Marta Freire on 03/19/25 15:24 Off Ur Leukocytes Negatve Last Edit by Marta Freire on 03/19/25 15:24 Coding Level of Care Code OB Routine Diagnoses Pelvic floor dysfunction in female M62.89 Supervision of high-risk O09.90 16 weeks gestation of Z3A.16 Weeks of gestation: 16 weeks Anxiety F41.9 Depression F32.A Acid reflux K21.9 Assessment and Plan Assessment and Plan (1) Pelvic floor dysfunction in female: Status: Acute Comment: PFPT with freya toño, cleared for vaginal exams as long as no bleeding. (2) Supervision of high-risk : Status: Acute Comment: PRR ERIN 08/31/25, : Vinny (3) : Status: Acute Qualifiers: Weeks of gestation: 16 weeks Qualified Code(s): Z3A.16 - 16 weeks gestation of Comment: Discussed genetic/carrier testing -declines (4) Anxiety: Status: Acute Comment: Zoloft (5) Depression: Status: Acute Comment: Zoloft (6) Acid reflux: Status: Acute Comment: Pantopazole Orders: Orders POC Urinalysis Dip (Clinic) Today O26.899 - Other specified related conditions, unspecified trimester, R30.0 - Dysuria Plan Details Additional Comments: ACOG trimester education reviewed and updated. see problem list details for updated plan management information and see below for orders placed at this visit. GA appropriate handout given. 03/19/25 8906 <Electronically signed by Kelsey park CNM> Date _ Kelsey Harrell CNM Cosigner Signature: Date (if applicable) CC: ~ [facility] Work Phone: 1(170) 657-644106-13-2025 Evaluation note* Diagnosis Onset Date Resolution Status Admit Date Amenorrhea acute January 12 8:09am Acid reflux acute January 26 1:31pm Amenorrhea acute January 26 1:31pm Anxiety acute January 26 1:31pm Depression acute January 26 1:31pm Endometriosis acute January 26, 2025 1:31pm IBS (irritable bowel syndrome) acute January 26, 2025 1:31pm Infertility acute January 26 1:31pm acute January 26 1:31pm Supervision of high-risk acute January 26, 2025 1:31pm [facility] Work Phone: 1(889) 949-925006-13-2025 Evaluation note* Diagnosis Onset Date Resolution Status Admit Date Amenorrhea acute January 12 8:09am Acid reflux acute January 26 1:31pm Anxiety acute January 26 1:31pm Depression acute January 26 1:31pm Endometriosis acute January 26, 2025 1:31pm IBS (irritable bowel syndrome) acute January 26, 2025 1:31pm Infertility acute January 26 1:31pm acute January 26 1:31pm Supervision of high-risk acute January 26, 2025 1:31pm [facility] Work Phone: 1(170) 277-814306-13-2025 Evaluation note* Diagnosis Onset Date Resolution Status Admit Date Amenorrhea resolved January 12 8:09am Acid reflux acute January 26 1:31pm Anxiety acute January 26 1:31pm Depression acute January 26 1:31pm acute January 26 1:31pm Supervision of high-risk acute January 26, 2025 1:31pm Endometriosis resolved January 26, 2025 1:31pm IBS (irritable bowel syndrome) resol gaby January 26, 2025 1:31pm Infertility resolved January 26 1:31pm Acid reflux acute February 22 9:19am Anxiety acute February 22 9:19am Depression acute February 22 9:19am acute February 22 9:19am Supervision of high-risk acute February 22, 2025 9:19am [facility] Work Phone: 1([phone]) 234-639606-13-2025 Evaluation note* Diagnosis Onset Date Resolution Status Admit Date Amenorrhea resolved January 12 8:09am Acid reflux acute January 26 1:31pm Anxiety acute January 26 1:31pm Depression acute January 26 1:31pm acute January 26 1:31pm Supervision of high-risk acute January 26, 2025 1:31pm Endometriosis resolved January 26, 2025 1:31pm IBS (irritable bowel syndrome) resol gaby January 26, 2025 1:31pm Infertility resolved January 26 1:31pm Acid reflux acute February 22 9:19am Anxiety acute February 22 9:19am Depression acute February 22 9:19am Pelvic floor dysfunction in female acute February 22, 2025 9:19am acute February 22 9:19am Supervision of high-risk acute February 22, 2025 9:19am Acid reflux acute March 19, 2025 3:03pm Anxiety acute March 19, 2 025 3:03pm Depression acute March 19 025 3:03pm Pelvic floor dysfunction in female acute March 19 3:03pm acute March 19, 2 025 3:03pm Supervision of high-risk acute March 19 3:03pm [facility] Work Phone: 1(874) 630-806506-13-2025 Evaluation note* Diagnosis Onset Date Resolution Status Admit Date Amenorrhea resolved January 12 8:09am Acid reflux acute January 26 1:31pm Anxiety acute January 26 1:31pm Depression acute January 26 1:31pm acute January 26 1:31pm Supervision of high-risk acute January 26, 2025 1:31pm Endometriosis resolved January 26, 2025 1:31pm IBS (irritable bowel syndrome) resolved January 26, 2025 1:31pm Infertility resolved January 26 1:31pm Acid reflux acute February 22 9:19am Anxiety acute February 22 9:19am Depression acute February 22 9:19am Pelvic floor dysfunction in female acute February 22, 2025 9:19am acute February 22 9:19am Supervision of high-risk acute February 22, 2025 9:19am Acid reflux acute March 19, 2025 3:03pm Anxiety acute March 19, 2 025 3:03pm Depression acute March 19, 025 3:03pm Pelvic floor dysfunction in female acute March 19 3:03pm acute March 19, 2 025 3:03pm Supervision of high-risk acute March 19 3:03pm Acid reflux acute April 8:19am Anxiety acute April 8:19am Depression acute April 8:19am Pelvic floor dysfunction in female acute April 18, 2025 8:19am acute April 8:19am Supervision of high-risk acute April 18, 2025 8:19am [facility] Work Phone: 1(508) 430-702906-05-2025 History of Present illness Narrative* Lisa Lemos - 01/04/2025 11:00 AM EDT Pt verified name and D.O.B by this MA. Review of Systems Constitutional: Positive for fatigue. HENT: Positive for congestion, postnasal drip, sinus pressure, sinus pain, sneezing, sore throat and trouble swallowing. Throat and tongue (white coding on the tongue) swelling. Eyes: Positive for discharge and itching. Respiratory: Positive for chest tightness, shortness of breath and wheezing. Pt has asthma. Cardiovascular: Positive for chest pain. Gastrointestinal: Positive for abdominal pain and constipation. Endometrial and pt is currently 6 weeks tomorrow. Musculoskeletal: Positive for back pain, neck pain and neck stiffness. Skin: Face swelling. All other systems reviewed and are negative. * Johann Haines MD - 01/04/2025 11:00 AM EDT Images from the original note were not included. Assessment & Plan 1. 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 A comprehensive discussion regarding mast cell activation syndrome was conducted. A baseline tryptase test will be ordered today, along with a paper lab order for a 24-hour urine test to beconducted during a flare-up. The patient was advised to collect urine for 24 hours starting with the onset of flare symptoms and keep it refrigerated until bringing it back to the lab. If the lab results are normal, the symptoms may be more likely related to a combination of food intolerances, sensitivities from irritable bowel syndrome, and chronic hives. - obtain baseline tryptase - obtain tryptase within three hours of onset of flare symptoms. - obtain following urine labs during a flare. At onset of a flare, urinate and do not collect urine. Then for 24 hours collect all urine in urine collection container. Urine should be refrigerated. Please bring urine the next business day to an [facility] lab. Leukotriene E4, 24 Hour, Urine - TLTE4 2,3-Dinor 11 Beta-Prostaglandin F2 Alpha, 24 Hour, Urine - 23BPT N-methylhistamine, 24 Hour, Urine - NMH24 - also obtain complete blood count with differential, total IgE, and alpha gal IgE 2. Chronic spontaneous hives Symptoms include frequent hives and swelling, which may be related to chronic spontaneous hives. The patient was advised to consider high-dose antihistamines and Xolair if needed. The potential risksand benefits of these medications, especially concerning , were discussed. We will discussthis further if the evaluation for MCAS is normal. 3. Irritable bowel syndrome with constipation (IBS-C) The patient reports bloating and stomach pain associated with certain foods. A low FODMAP diet was recommended for one month to see if it helps alleviate symptoms. If the low FODMAP diet is ineffective, a low histamine diet may be considered. 4. Asthma The patient has a history of asthma, which is currently well-managed with an inhaler. No changes tothe current asthma management plan were made. 5. Allergic rhinitis The patient experiences year-round allergies, with worsening symptoms during certain times of the year. Blood testing in 2021 was positive to cat, dog, dust mite, grass pollen, and ragweed pollen, and borderline positive to tree pollen. Generic Roselia was recommended as it crosses the blood-brain barrier the least, making it a safer option during . We will discuss this more if MCAS evaluation is normal. Her evaluations are not severe overall, so she is ambivalent right now about further evaluation for environmental allergies. Return in 8 weeks (on 03/02/2025) for mast cell activation syndrome evaluation . Follow up sooner as needed. Km Strange is a 29 y.o. female with a history IBS-C and endometriosis who is at [id number] presents to the [facility] clinic today for initial evaluation of adverse reactions to foods, idiopathic mast cell activation syndrome, and urticaria. The following history was obtained by chart review in preparation for the encounter on the day of the encounter: She was seen in the ED on 11/23/2024 for potential allergic reaction after using a homeopathic herbal remedies for endometriosis that helps with the inflammation. She says that she started using 3 herbal supplements and soak and then started to develop symptoms. She developed hives, angioedema, andbruising on her legs and arms. She had previously taken 12.5 mg of diphenhydramine. She was given prednisone 60 mg, diphenhydramine 25 mg, and famotidine 20 mg and she was discharged with diphenhydramine 25 mg as needed, prednisone 50 mg daily for 5 days, Pepcid 20 mg twice per day, and [id number] mg once. She was recently seen in [facility]. She noted severe bladder pain and diagnosisof endometriosis. She was also having if difficulty with frequent urination and dyspareunia. She recently found out she is . She had surgery in April 2024 for endometriosis and she feels like symptoms are worse since then. She was seen by her PCP on 11/24/2024 for a follow-up after her potential allergic reaction. She says that she had taken multiple different holistic supplements recently to help with infertility. Some have been an T forearm and others have been about salt. She developed an allergic reaction where she had hives, swollen lips, and tongue. The following history was obtained from the patient: History of Present Illness The patient is a [id number]-lrp-female who presents for evaluation of an allergic reaction and mast cell activation syndrome. (AI note gag writer used incorrect pronouns - pronouns should be she /her) He has been experiencing significant swelling due to food reactions. A few months ago, he was consuming various herbal teas and baths as part of an infertility treatment regimen, which led to hives and eye swelling. He had to seek emergency care at three different facilities due to throat, tongue, and facial swelling, accompanied by wheezing. The wheezing has since improved, but the swelling persists. He has also noticed a white coating on his tongue and difficulty closing his mouth upon waking. After eating [employer], he woke up with a swollen tongue and could barely shut his mouth. He also reports red lines on the sides of his tongue, indicative of teeth indentations. His throat swelling has been minimal, likely due to dietary restrictions. He experiences fatigue, bloating, and stomach pain during these episodes. He also reports occasional tooth pain. He has been taking Roselia and Claritin daily for several years, which he finds beneficial. He experiences year-round allergies, which are worse during the current season. He has a history of asthma, which is well- managed with an inhaler. He does not regularly experience wheezing during symptom flares. He was previously treated with prednisone, Benadryl, and Pepcid in the emergency department, which provided temporary relief. He has discontinued all herbal supplements and essential oils since his last emergency room visit. Heoccasionally notices swollen lymph nodes. He experiences intermittent flushing, which he describes as bright red and hot to touch. He experiences weekly swelling episodes, even when adhering to his dietary restrictions. He has undergone home biotests to identify food sensitivities and has been avoiding these foods. He has tested positive for the MTHFR gene and is currently exploring its implications. He has a long-standing history of hives, which he initially attributed to anxiety. He has numerous outdoor allergies but does not react to them. He experiences immediate puffiness after consuminga cheeseburger. He has been avoiding dairy products for some time but recently consumed sour cream,which resulted in tongue pain. He has been diagnosed with endometriosis and interstitial cystitis (IC), which exacerbate his pain.He also has irritable bowel syndrome with constipation (IBS- C) and is unsure if it is food-related.He consumes meat, vegetables, and hummus, as rice exacerbates his endometriosis symptoms. He is uncertain if high- histamine vegetables trigger his symptoms. He maintains a diet rich in fruits, vegetables, and meat. He has a known intolerance to gluten and dairy, which exacerbate his pain. MEDICATIONS Current: Roselia, Claritin Past: Prednisone, Benadryl, Pepcid Medication Allergies: She is allergic to serotonin and sulfa antibiotics. Medications: She has a current medication list which includes the following prescription(s): clomiphene, epinephrine, budesonide-formoterol, and pantoprazole. Past medical History She has a past medical history of Endometriosis and Irritable bowel syndrome. Past Surgical History No relevant surgical history. Family History His whole family has allergies. His father has eczema. Social History She reports that she has never smoked. She has never used smokeless tobacco. She reports current alcohol use. She reports current drug use. Drug: Marijuana. Review of Systems - Constitutional: Positive for fatigue. HENT: Positive for congestion, postnasal drip, sinus pressure, sinus pain, sneezing, sore throat and trouble swallowing. Throat and tongue (white coding on the tongue) swelling. Eyes: Positive for discharge and itching. Respiratory: Positive for chest tightness, shortness of breath and wheezing. Pt has asthma. Cardiovascular: Positive for chest pain. Gastrointestinal: Positive for abdominal pain and constipation. Endometrial and pt is currently 6 weeks tomorrow. Musculoskeletal: Positive for back pain, neck pain and neck stiffness. Skin: Face swelling. All other systems reviewed and are negative. Pulse 73 Ht 1.524 m (5') Wt 54.4 kg (120 lb) SpO2 98% BMI 23.44 kg/m Smoking Status Never Body mass index is 23.44 kg/m . Physical Exam GENERAL: Alert, oriented and in no acute distress. HEENT: EYES: Normal conjunctivae. No ocular discharge. Nose: nasal turbinates are minimal edematousand are minimally boggy. There is no mucous stranding, polyps, or blood noted. MOUTH: moist and pink with no exudates, ulcers, or thrush. Tonsils appear normal. NECK: is supple, without adenopathy. No upper airway stridor noted. LUNGS: Clear to auscultation bilaterally. No wheezing, rhonchi or rales. ABDOMEN: Soft, nondistended. Non-tender to light palpation. EXTREMITIES: No cyanosis, clubbing or edema. NEURO: Normal affect. Gait normal. SKIN: No rash, hives, or angioedema noted Testing: Percutaneous Allergy Testing: Thank you for the opportunity to participate in the care of your delightful patient, Km Strange. Should there be any questions or concerns, please do not hesitate to contact me at [phone]. 60 minutes was spent on care of the patient on the day of the encounter, including chart review, obtaining a history and physical exam, counseling provided to the patient, and necessary documentation. 5 minutes was spent on chart review, 40 minutes was spent obtaining history and physical exam and d iscussing recommendations with the patient, 15 was spent on documentation, all of which was on the day of the encounter and all of which was above time spent on procedures such as skin testing. Any documentation not on the day of the encounter was not included in the time total above. Johann Haines M.D. Investment Sales Assistant - Clinical [facility] Instructions* Patient Instructions* Johann Haines MD - 01/04/2025 11:00 AM EDT 1. Possible Mast Cell Activation Syndrome (MCAS) You have been having symptoms like hives, swelling (especially of your lips and tongue), and episodes of wheezing. These symptoms may be due to a condition called mast cell activation syndrome. To help us better understand what s going on, we ordered the following tests: A baseline blood test called tryptase (done today). A second tryptase blood test, to be done within 3 hours of the start of a flare- up (when you are actively experiencing symptoms). A 24-hour urine test during a flare-up. When you feel a flare starting: Do not collect your first urine. Then collect all urine for the next 24 hours in the special container we gave you. Keep the container refrigerated the whole time. Bring it back to any [facility] lab the next business day. These urine tests will check for the following: Leukotriene E4 Prostaglandin D2 metabolite (2,3-Dinor 11?-PGF2?) N-methylhistamine We also ordered: A complete blood count (CBC) Total IgE level Alpha-gal IgE (a type of meat allergy) If all of your testing comes back normal, your symptoms may be more related to chronic hives, food sensitivities, or irritable bowel syndrome rather than MCAS. 2. Chronic Spontaneous Hives Your frequent hives and swelling may be due to chronic spontaneous hives (a type of allergic skin reaction without a clear trigger). You may benefit from high-dose antihistamines or a medication called Xolair if your symptoms continue. We talked about the safety of these treatments, especially in relation to . If your MCAS testing is normal, we ll revisit this treatment option in more detail. 3. Irritable Bowel Syndrome with Constipation (IBS-C) You're having bloating and stomach pain, especially with certain foods. We recommend trying a low FODMAP diet for one month to see if your symptoms improve. If that doesn t help, we may try a low histamine diet next. 4. Asthma Your asthma is currently well-controlled with your inhaler. No changes to your current asthma plan are needed. 5. Allergic Rhinitis (Environmental Allergies) You have year-round allergy symptoms, which worsen during certain times of the year. Past allergy testing showed sensitivity to cat, dog, dust mites, grasses, and ragweed, and borderline reaction to tree pollen. We recommended generic Roselia (fexofenadine) as an antihistamine that s less likely to cause drowsiness and is generally considered safer during . You are not currently interested in further testing or allergy treatments, and that s completely okay--we can revisit this in the future if needed. Next Steps: Complete lab testing as instructed. Try the low FODMAP diet for one month. Follow up to review your lab results and discuss next steps depending on what we find. If you have any questions or experience worsening symptoms, please reach out through [employer] or call the office. FODMAPs (Fermentable Oligosaccharides, Disaccharides, Monosaccharides, And Polyols) are short-chaincarbohydrates that are poorly absorbed in the small intestine and can trigger digestive symptoms insome people, especially those with Irritable Bowel Syndrome (IBS). Managing food intake based on FODMAP content can help mitigate digestive distress. Here's a simplified guide to high, medium, and low FODMAP foods. Note that individual tolerance can vary, and it's important to consult with a healthcare professional or dietitian when making dietary changes. High FODMAP Foods These foods are typically high in FODMAPs and might trigger symptoms in sensitive individuals. It'soften recommended to limit or avoid these foods during the elimination phase of a low FODMAP diet. Fruits: Apples, pears, cherries, mangoes, watermelon Vegetables: Onions, garlic, cauliflower, asparagus, mushrooms Legumes: Beans, lentils, chickpeas Dairy Products: Milk (cow, goat, sheep), ice cream, soft cheeses Sweeteners: Honey, high fructose corn syrup, agave nectar Wheat Products: Bread, pasta, most breakfast cereals Other: Cashews, pistachios Medium FODMAP Foods Medium FODMAP foods may be tolerable in smaller portions but can contribute to symptoms if overconsumed. Fruits: Avocado, ripe bananas, sweet cherries, plums Vegetables: Broccoli, beets, [place] sprouts, sweet potato Dairy Products: Yogurt, soft cheeses in moderate quantities Grains: [place] bread, wheat bread in small amounts Nuts and Seeds: Almonds and hazelnuts in limited quantities Low FODMAP Foods Low FODMAP foods are generally well tolerated and can form the basis of a low FODMAP diet. Fruits: Oranges, grapes, strawberries, blueberries, cantaloupe Vegetables: Carrots, cucumbers, lettuce, tomatoes, zucchini Proteins: Eggs, firm tofu, meats, and fish without added high FODMAP ingredients Dairy Alternatives: Lactose-free milk, almond milk, rice milk Grains: Gluten-free bread and pasta, oats, quinoa Nuts and Seeds: Peanuts, pumpkin seeds, sunflower seeds (in small amounts) This list serves as a general guide. For a personalized approach, especially during the reintroduction phase, working with a healthcare professional skilled in managing diets for digestive health is crucial. This helps ensure you don't unnecessarily restrict your diet and maintain nutritional balance. documented in this [facility]06-03-2025 History of Present illness Narrative* Chad Valdez MD - 01/02/2025 2:40 PM EDT HISTORY OF PRESENT ILLNESS: Km Strange is a 29 y.o. female who presents today as a new patient. She is currently . She has bladder pain. She was diagnosed with endometriosis. She has frequent urination. She wakes up 2 to 3 times at night to void. She has painful intercourse. She has urgency. She had surgery for her endo in April, and reports that her symptoms have worsened since then. She was supposed to undergo pelvic floor Botox but recently found out she was and wants to hold off on this. Past Medical History She has a past medical history of Anxiety and depression, Asthma, Endometriosis, GERD (gastroesophageal reflux disease), and IBS (irritable bowel syndrome). Surgical History She has a past surgical history that includes Appendectomy (2018); Mouth surgery; and Laparoscopy diagnostic / biopsy / aspiration / lysis (10/14/2023). Social History She reports that she has been smoking cigarettes. She has never used smokeless tobacco. She reportscurrent alcohol use. She reports current drug use. Drug: Marijuana. Family History Family History[1] Allergies Serotonin and Sulfa (sulfonamide antibiotics) A comprehensive 10+ review of systems was negative except for: see hpi PHYSICAL EXAMINATION: BP Readings from Last 3 Encounters: 09/20/24 109/73 09/09/24 106/73 08/30/24 120/82 Wt Readings from Last 3 Encounters: 09/20/24 55.8 kg (123 lb) 09/09/24 54.4 kg (120 lb) 08/30/24 55.4 kg (122 lb 3.2 oz) BMI: Estimated body mass index is 24.03 kg/m as calculated from the following: Height as of 09/20/24: 1.524 m (5'). Weight as of 12/22/24: 55.8 kg (123 lb 0.3 oz). BSA: Estimated body surface area is 1.54 meters squared as calculated from the following: Height as of 09/20/24: 1.524 m (5'). Weight as of 12/22/24: 55.8 kg (123 lb 0.3 oz). HEENT: Normocephalic, atraumatic, PER EOMI, nonicteric, trachea normal, thyroid normal, oropharynx normal. CARDIAC: regular rate & rhythm, S1 & S2 normal. No heaves, thrills, gallops or murmurs. LUNGS: Clear to auscultation, no spinal or CV tenderness. EXTREMITIES: No evidence of cyanosis, clubbing or edema. Assessment: 29 y.o. female presents as a new patient with pelvic pain With positive findings of endometriosis Chronic pelvic pain: Her pathology is consistent with endometriosis however she has persistent hypertonic pelvic floor and interstitial cystitis As she is currently 5 weeks we discussed that I am fairly limited in what evaluation I ruben and what treatments we can start Continue physical therapy As she has urgency frequency we can start oxybutynin as as it is a category B medication, we discussed that did not show any adverse effects in animals but it is safety in has not been fully evaluated She may also benefit from water exercises Follow up in 3 months virtually After delivery I will have her return for cystoscopy if symptoms persist then we can discuss pelvicfloor Botox and other management options All questions and concerns were answered and addressed. The patient expressed understanding and agrees with the plan. Chad Valdez MD Scribe Attestation By signing my name below, I, Edna Warren, Scribe attest that this documentation has been prepared under the direction and in the presence of Chad Valdez MD. [1] Family History Problem Relation Name Age of Onset Cervical cancer Mother Shanning Hanning Depression Mother Shanning Hanning Diabetes Mother Shanning Hanning Hypertension Mother Shanning Hanning Cancer Mother Shanning Hanning Thyroid cancer Mother Shanning Hanning Migraines Mother Shanning Hanning migraine headaches Arthritis Mother Shanning Hanning Mental illness Mother Shanning Hanning Asthma Father Alexander Hanning Depression Father Alexander Hanning Hypertension Father Alexander Hanning Migraines Father Alexander Hanning migraine headaches Sleep apnea Father Alexander Hanning Irregular heart beat Father Alexander Hanning Anesthesia related problems Father Alexander Hanning Arthritis Father Alexander Hanning Heart disease Father Alexander Hanning Mental illness Father Alexander Hanning Asthma Sister Bonnie Hanning Depression Brother Kip Hanning Arthritis Brother Kip Hanning Cancer Maternal Grandmother Marcie Lee [facility] Work Phone: [phone] History of Present illness Narrative* Ayaka Doss, LORIE-BOX TOE CEMENTER - 11/24/2024 10:30 AM EDT Subjective Patient ID: Km Strange is a 29 y.o. female who presents for No chief complaint on file.. HPI Pt here for telephone encounter to discuss Pt and physician are at two separate locations. Pt was verbally consented for the encounter Patient request for telephone encounter Reports she has taken multiple different hollistic supplements recently to help with her infertility. Some have been in a tea form while others were bath salts. On Wednesday she had her first episode ofallergic reaction which entailed hives, swollen lips and tongues. She has gone to two different ER's, been treated with Epi pen, prednisone, and benadryl. Reports the medication helps temporarily but then the symptoms resume without re-expposure. Was referred to allergy through [facility] and would like workup through them. Review of Systems Constitutional: Negative for chills, fatigue and fever. HENT: Positive for trouble swallowing. Cardiovascular: Negative for chest pain and palpitations. Neurological: Negative for light-headedness and headaches. Objective There were no vitals taken for this visit. Physical Exam Neurological: Mental Status: She is alert and oriented to person, place, and time. Assessment/Plan Problem List Items Addressed This Visit None Allergic reaction -was prescribed prednsione and epi pen in ER -Allergy referral through [facility] -She would like specific histamine testing done and is requesting to do this through [facility] -Recommend ER for any concerns with airway or breathing. Total time spent caring for the patient today was 20 minutes. This includes time spent before the visit reviewing the chart, time spent during the visit, and time spent after the visit on documentation, etc [facility] Work Phone: [phone] Emergency department Note* Les Pereira RPH - 11/23/2024 6:46 AM EDT Department of Pharmacy ED Discharge Prescription Review Patient: Km Strange Due to the specific medication prescribed, the following ED discharge prescriptions were reviewed prior to discharge at 11/23/2024 6:46 AM: Epinephrine 0.3 mg/0.3mL autoinjector Based upon review of above discharge prescriptions, No interventions were necessary for the above prescription(s). Epipen education provided to patient using [facility] Patient Education materials. Medication action, dosage, precautions, side effects, administration, schedule, food-drug/drug-drug interactions, and herbal/dietary supplement interactions reviewed. Patient verbalized understanding. No follow-up actions are necessary at this time. Please feel free to contact me with any further questions. Name: Les Aarondi EDWIGE Phone: [phone] Date/Time: 11/23/2024 6:46 AM Time spent: 10 minutes [facility]04-24-2025 Emergency department Note* Les Pereira RPH - 11/23/2024 6:46 AM EDT Department of Pharmacy ED Discharge Prescription Review Patient: Km Strange Due to the specific medication prescribed, the following ED discharge prescriptions were reviewed prior to discharge at 11/23/2024 6:46 AM: Epinephrine 0.3 mg/0.3mL autoinjector Based upon review of above discharge prescriptions, No interventions were necessary for the above prescription(s). Epipen education provided to patient using [facility] Patient Education materials. Medication action, dosage, precautions, side effects, administration, schedule, food-drug/drug-drug interactions, and herbal/dietary supplement interactions reviewed. Patient verbalized understanding. No follow-up actions are necessary at this time. Please feel free to contact me with any further questions. Name: Les Pereira RPH Phone: [phone] Date/Time: 11/23/2024 6:46 AM Time spent: 10 minutes * Valdo Buck RN - 11/23/2024 2:44 AM EDT Bed: E053 Expected date: Expected time: Means of arrival: Comments: FT * Jonathon Brown MD - 11/23/2024 2:20 AM EDT EMERGENCY DEPARTMENT ENCOUNTER HISTORY OF PRESENT ILLNESS Km Strange is a 29 y.o. female with a past medical history of Endometriosis who presents withchief complaint of Allergic Reaction Patient has attempted using homeopathic herbal remedies for endometriosis to decrease systemic inflammation. The patient started using 3 herbal supplements and a soak and noted reactions as a result of starting these. The patient started using these medications 1 week ago and developed hives, angioedema, and bruising on her legs and arms. She presented to an OSH for these symptoms and received benadryl and steroids. The patient was discharged and now represents with progressive angioedema with concerns for recurrence. Patient endorses nausea. PAST MEDICAL HISTORY No past medical history on file. SURGICAL HISTORY No past surgical history on file. CURRENT MEDICATIONS No current outpatient medications on file. ALLERGIES Allergies Allergen Reactions Sulfa Antibiotics Hives Family history reviewed and noncontributory to presenting problem other than that mentioned in HPI Social history reviewed and noncontributory to presenting problem other than that mentioned in HPI REVIEW OF SYSTEMS Review of Systems PHYSICAL EXAM VITAL SIGNS: BP 122/80 Pulse 83 Temp 97.9 F (36.6 C) (Temporal) Resp 16 Ht 1.524 m (5') SpO2 97% Please note that any abnormal exam findings are not bolded or in red below. General appearance: alert, cooperative, appears stated age Neck: Angioedema noted. Tongue swelling noted. Lungs: clear to auscultation bilaterally Heart: S2 consistently audible. NRRR Abdomen: soft, non-tender. Bowel sounds normal. No masses, no organomegaly Neurologic: AOx3. Gait normal. Reflexes and motor strength normal and symmetric. Cranial nerves 2-12 and sensation grossly intact LABS No results found for this visit on 11/23/24. ED COURSE & MEDICAL DECISION MAKING Pertinent Labs & Imaging studies if performed were reviewed. (See chart for details) Medication list reviewed. Km Strange is a 29 y.o. female who presents with Anaphylaxis Differential Diagnosis includes but is not limited to: Anaphylaxis Medical Decision Making: Patient presents with 2+ organ systems involved in an allergic reaction demonstrating anaphylaxis. Patient did not receive epinephrine at the OSH when initially treated which makes the most likely cause incomplete treatment of anaphylaxis. Medical Decision Making Amount and/or Complexity of Data Reviewed Labs: ordered. Risk Prescription drug management. Orders Placed This Encounter Lidocaine 1% (PF) (XYLOCAINE MPF) 1 % injection 0.3 mL EPINEPHrine (Anaphylaxis) (ADRENALIN) 1 MG/ML injection 0.3 mg HCG QUALITATIVE, URINE ED Course as of 11/23/24 0547 Amanda Nov 23, 2024 0546 Re-evaluate at 0647 and discharge if still improved. Impression: Anaphlyaxis Epinephrine IM 0.3 mg Disposition: Pending Improvement and monitoring This patient was discussed with the attending physician and/or the senior resident who was in the immediate care area during the evaluation and decision making process. Jonathon Brown MD 11/23/24 This note was dictated using [email or web address]. Attempts at proofreading have been made, however errors may still occasionally occur. Jonathon Brown MD Resident 11/23/24224 * Jessica Vasquez RN - 11/23/2024 1:54 AM EDT Pt. Seen at OSH for allergic reaction. Given benadryl, prednisone, and an anti inflammatory and discharged home. When pt. Went to go to bed she felt like her face was swelling again. Airway patent, handling secretions, no noticeable swelling to face but pt. Reports that it feels more full than normal. Came to ED for further evaluation. [facility] Note* Valdo Buck RN - 11/23/2024 2:44 AM EDT Bed: E053 Expected date: Expected time: Means of arrival: Comments: FT [facility]04-24-2025 Hospital Discharge instructions* Discharge Instructions* Jonathon Brown MD - 11/23/2024 2:28 AM EDT You were taken care of in the ED for anaphylaxis to a supplement that you recently started. We believe that you developed further symptoms following leaving the last hospital because the medications wore off and you may not have gotten epinephrine at the outside hospital. We recommend the following: - Please make you primary care physician aware of this reaction - Please note what supplements may have caused this and discuss this with your primary care physician for notation - We wrote a referral to an core java engineer to further explore these reactions and assist with identification of other causes - Additionally we will write you a prescription for an EpiPen in case a reaction like this happens again Return Precautions: Please return to the emergency room if you develop recurrence of airway swelling, facial swelling, tongue swelling. Additionally, please come in to the emergency room if you experience recurrence of hives, any wheezing and shortness of breath, nausea and vomiting. [facility] Physician Emergency department Note* Jonathon Brown MD - 11/23/2024 2:20 AM EDT EMERGENCY DEPARTMENT ENCOUNTER HISTORY OF PRESENT ILLNESS Km Strange is a 29 y.o. female with a past medical history of Endometriosis who presents withchief complaint of Allergic Reaction Patient has attempted using homeopathic herbal remedies for endometriosis to decrease systemic inflammation. The patient started using 3 herbal supplements and a soak and noted reactions as a result of starting these. The patient started using these medications 1 week ago and developed hives, angioedema, and bruising on her legs and arms. She presented to an OSH for these symptoms and received benadryl and steroids. The patient was discharged and now represents with progressive angioedema with concerns for recurrence. Patient endorses nausea. PAST MEDICAL HISTORY No past medical history on file. SURGICAL HISTORY No past surgical history on file. CURRENT MEDICATIONS No current outpatient medications on file. ALLERGIES Allergies Allergen Reactions Sulfa Antibiotics Hives Family history reviewed and noncontributory to presenting problem other than that mentioned in HPI Social history reviewed and noncontributory to presenting problem other than that mentioned in HPI REVIEW OF SYSTEMS Review of Systems PHYSICAL EXAM VITAL SIGNS: BP 122/80 Pulse 83 Temp 97.9 F (36.6 C) (Temporal) Resp 16 Ht 1.524 m (5') SpO2 97% Please note that any abnormal exam findings are not bolded or in red below. General appearance: alert, cooperative, appears stated age Neck: Angioedema noted. Tongue swelling noted. Lungs: clear to auscultation bilaterally Heart: S2 consistently audible. NRRR Abdomen: soft, non-tender. Bowel sounds normal. No masses, no organomegaly Neurologic: AOx3. Gait normal. Reflexes and motor strength normal and symmetric. Cranial nerves 2-12 and sensation grossly intact LABS No results found for this visit on 11/23/24. ED COURSE & MEDICAL DECISION MAKING Pertinent Labs & Imaging studies if performed were reviewed. (See chart for details) Medication list reviewed. Km Strange is a 29 y.o. female who presents with Anaphylaxis Differential Diagnosis includes but is not limited to: Anaphylaxis Medical Decision Making: Patient presents with 2+ organ systems involved in an allergic reaction demonstrating anaphylaxis. Patient did not receive epinephrine at the OSH when initially treated which makes the most likely cause incomplete treatment of anaphylaxis. Medical Decision Making Amount and/or Complexity of Data Reviewed Labs: ordered. Risk Prescription drug management. Orders Placed This Encounter Lidocaine 1% (PF) (XYLOCAINE MPF) 1 % injection 0.3 mL EPINEPHrine (Anaphylaxis) (ADRENALIN) 1 MG/ML injection 0.3 mg HCG QUALITATIVE, URINE ED Course as of 11/23/24 0547 Amanda Nov 23, 2024 0546 Re-evaluate at 0647 and discharge if still improved. Impression: Anaphlyaxis Epinephrine IM 0.3 mg Disposition: Pending Improvement and monitoring This patient was discussed with the attending physician and/or the senior resident who was in the immediate care area during the evaluation and decision making process. Jonathon Brown MD 11/23/24 This note was dictated using [email or web address]. Attempts at proofreading have been made, however errors may still occasionally occur. Jonathon Brown MD Resident 11/23/24 [id number] [facility]04-24-20[facility] Emergency department Note* Jessica Vasquez RN - 11/23/2024 1:54 AM EDT Pt. Seen at OSH for allergic reaction. Given benadryl, prednisone, and an anti inflammatory and discharged home. When pt. Went to go to bed she felt like her face was swelling again. Airway patent, handling secretions, no noticeable swelling to face but pt. Reports that it feels more full than normal. Came to ED for further evaluation. [facility]04-06-2025 Discharge summary [facility] Medical Records Department [address] [place] [address] Emergency Department Summary 11/05/24 MR#: [id number] Acct: [id number] Name: KM STRANGE Rep #:[id number] : 1995 29 From: Daniel Isaacs PCP: CARLA Plascencia Status:REG ER Location: ED HPI History of Present Illness Chief Complaint: Abd Pain PFSH PFSH Home Medications ?Medication ?Instructions ?Recorded ?Last Taken ?Type fluticasone furoate 100 1 inh inhalation DAILY PRN 0 02/18/23 Unknown History mcg-vilanterol 25 mcg/dose inhalation powder (Breo Ellipta) mirtazapine 15 mg tablet 15 mg PO DAILY 02/18/23 Unkn own History montelukast 10 mg tablet 10 mg PO DAILY 02/18/23 Unkn own History (Singulair) pantoprazole 40 mg tablet,delayed 40 mg PO DAILY 02/18 Unknown History release Allergy/AdvReac Type Severity Reaction Status Date / Time Sulfa (Sulfonamide Allergy Intermediate Hives Verified 11/05/24 15:20 Antibiotics) Family History Mother Cancer pancreatic/cervical Diabetes Hypertension Father Hypertension Surgical History S/P laparoscopic procedure History of appendectomy Social History Smoking Status: Never smoker alcohol intake: current alcohol intake frequency: holidays/special occasions only substance use type: does not use EXAM Physical Exam Const Vital Signs: 11/05/24 15:17 11/05/24 17:28 Temperature 97.4 F L Temperature Source Oral Pulse Rate 98 91 Respiratory Rate 18 16 Blood Pressure 108/81 H 107/71 Blood Pressure Mean 90 83 Pulse Ox 98 100 Oxygen Delivery Method Room Air Room Air [facility] Narrative Medical decision making narrative: HISTORY OF PRESENT ILLNESS: Chief complaint: Abdominal pain 29-year-old female history of endometriosis presents with abdominal pain and increased urinary frequency. Notes pain radiates to back. Notes is similar to prior flares of endometriosis. Denies history of kidney stones. Denies vaginalbleeding or discharge. Denies constipation or diarrhea. Notes history of multiple abdominal surgeries REVIEW OF SYSTEMS: Pertinent positives: abdominal pain Pertinent negatives: Vomiting PHYSICAL EXAM: Nursing triage notes reviewed, Vital signs reviewed Constitutional: please see [facility] HENT: MMM Eyes: Pupils equal round and reactive to light, Extraocular muscles intact Neck: No stridor, no JVD, full neck ROM Lungs: Clear to auscultation, No wheezing or rales. No increased work of breathing, no conversational dyspnea, no accessory muscle use, no nasal flaring. No respiratory distress noted Heart: Regular rate and rhythm, No murmurs, No rubs and No gallops, 2+ distal pulses (radial, femoral, posterior tibial) in all extremities Abdomen: Soft, there is no tenderness, rigidity, rebound or guarding, no obviousperitoneal signs, no palpable pulsatile abdominal masses, no auscultated abdominal bruit : No CVAT Extremities: No edema Neuro: No new focal neurological deficits, cranial nerves II through XII intact,5/5 strength in allpresent extremities. Intact sensation to light touch in all present extremities, 2+ reflexes bilateral patella tendons. Skin: No rash or lesions noted MEDICAL DECISION MAKING: Chief Complaint: please see HPI External records reviewed: Reviewed prior imaging studies Factors affecting care: Endometriosis, anxiety, depression, asthma, gallbladder sludge Social determinants of health: none History obtained from others: family Consults: none [facility] Narrative: Patient was hemodynamically stable, afebrile nontoxic-appearing. Abdominal Examoverall benign I considered the following differential diagnosis: AAA, small bowel obstruction,abdominal perforation, appendicitis, pancreatitis, hepatobiliary pathology (acute cholecystitis), mesenteric ischemia, pathology (ie nephrolithiasis, pyelonephritis). I obtained labs images to further assess any sign of a life-threatening etiology. I initially resuscitated the patient while he normal saline, 4 mg IV Zofran, oral Tylenol and 15 mgof IV Toradol. ALL IMAGES (IF OBTAINED) HAVE BEEN PERSONALLY REVIEWED AND INTERPRETED BY MYSELF. CBC with no leukocytosis to suggest systemic inflammation, no anemia thrombocytopenia CMP without evidence of acute kidney injury, significant electrolyte abnormality, anion gap to suggest end organ hypo-perfusion, no evidence of metabolic acidosis with a normal bicarbonate, no evidence of hepatobiliary obstructive pathology. Lipase is wnl indicating no pancreatic inflammation. Urinalysis shows no evidence of urinary inflammation suggestive of UTI Urine test is CT scan of the c abdomen pelvis noncontrast shows no evidence of nephrolithiasis I suspect the patient's presentation is secondary to a flare of her endometriosis. NSAIDs encouraged. Close HEAD OF ETHICS AND COMPLIANCE follow-up recommended. Strict return precautions were discussed. The patient and/or family, caregivers express understanding. The patient and/orfamily, caregivers agrees with the plan. Shared decision making: I will have a discussion with the patient and or visitors regarding risk/benefits of further testing or admission. They will be made aware of of the risk/benefits inherent in this decision they will be given the opportunity to voice understanding. Total critical care time today provided was at least 0 minutes. This excludes separately billable procedures. Critical care time (if documented) is secondary to the patient having high probability ofclinically significant/life threatening deterioration in the patient's condition which required my urgent intervention. Impression: 1. Acute abdominal pain 2. Urinary frequency 3. History of endometriosis Dispo: Discharge home This note was generated with 9facts dictation software. It may contain incorrectwords, spelling, and punctuation that were not noted in review of the chart prior to signing. Lab Data Labs: Laboratory Results - last 24 hr 11/05/24 11/05/24 15:38 16:24 WBC 3.3 L RBC 4.47 Hgb 13.8 Hct 38.3 MCV 85.7 MCH 30.9 MCHC 36.0 RDW Std Deviation 36.7 RDW Coeff of Zander 11.9 Plt Count 160 MPV 10.4 Immature Gran % (Auto) 0.600 Neut % (Auto) 55.2 Lymph % (Auto) 32.5 [place] % (Auto) 9.9 Eos % (Auto) 1.8 Baso % (Auto) 0.0 Absolute Neuts (auto) 1.8 L Absolute Lymphs (auto) 1.08 Nucleated RBC % 0 Sodium 138 Potassium 3.6 Chloride 104 Carbon Dioxide 22.1 Anion Gap 11 BUN 11 Creatinine 0.68 L Estim Creat Clear Calc 97.03 Est GFR (MDRD) Non-Af 122 BUN/Creatinine Ratio 16.4 Glucose 80 Calcium 9.0 Total Bilirubin 0.27 AST 20 ALT 15 Alkaline Phosphatase 59 Total Protein 6.7 Albumin 4.3 Globulin 2.4 Albumin/Globulin Ratio 1.8 Lipase 31 Urine Color Yellow Urine Clarity Clear Urine pH 7.0 Ur Specific [place] 1.010 Urine Protein Negative Urine Glucose (UA) Normal Urine Ketones Negative Urine Occult Blood Negative Urine Nitrite Negative Urine Bilirubin Negative Urine Urobilinogen Normal Ur Leukocyte Esterase Negative Urine RBC 0 SEEN Urine WBC 0 SEEN Ur Squamous Epith Cells 0 SEEN Urine Bacteria 0 SEEN Urine Mucus 0 SEEN Urine Test Negative Radiography Diagnostic Testing: Clinical Impression(s) from Imaging Studies Abdomen/Pelvis CT 11/05/24 16:09 IMPRESSION: NO UROLITHIASIS OR HYDRONEPHROSIS. NO ACUTE FINDINGS. Reading Location: [facility] Discharge Plan Triage Chief Complaint: Abd Pain ED Provider: Daniel Schneider Dx/Rx/DC Orders Prescriptions: No Action mirtazapine 15 mg tablet 15 mg PO DAILY pantoprazole 40 mg tablet,delayed release (DR/EC) 40 mg PO DAILY montelukast [Singulair] 10 mg tablet 10 mg PO DAILY fluticasone furoate-vilanterol [Breo Ellipta] 100-25 mcg/dose blister with device 1 inh inhalation DAILY PRN Primary Care Provider: Ayaka Doss Referrals: Sukh Pollock PA [Non-Staff] - Print Language: Danish What to do if you have Problems For any increased pain, shortness of breath, bleeding, nausea or vomiting, chestpain, or any unexpected problems, contact your Primary Care Provider. Call [facility] ([phone]) or report tothe closest Emergency Room. Call 911 if necessary. 11/05/24 9205 Cosigner Signature (if applicable): CC: CARLA Doss ~ Signed [facility]04-06-2025 Radiology Diagnostic study note [facility] Imaging Services [address] [place] [address] Abdomen/Pelvis without Cont MR#: [id number] Acct: [id number] Name: KM STRANGE Rep #: [id number] : 1995 F 29 From: Abelardo Dykes DO PCP: CARLA Plascencia Status: REG ER Study:Abdomen/Pelvis without Cont Date of Exa m: 11/05/24 Exam# [id number] Ordering Dr: Amara Schneider DO PROCEDURE: ABDOMEN/PELVIS WITHOUT CONT 11/05/2024 REASON FOR EXAM: LOWER ABDOMINAL PAIN, FLANK PAIN RULE OUT KIDNEY TECHNIQUE: Abdomen and pelvis CT without intravenous contrast. Noncontrast technique limits evaluation of the abdominal and pelvic viscera. Coronal and Sagittal reconstruction series were provided. One or more dose reduction techniques were used (e.g., Automated exposure control, adjustment of the mA and/or kV according to patient size, use of iterative reconstruction technique). PATIENT PREPARATION: Per protocol ORAL CONTRAST TYPE: None. AMOUNT: mL COMPARISON: None FINDINGS: Lung bases: Unremarkable Liver: Normal size. No obvious mass. Gallbladder: Unremarkable Spleen: Normal size. Pancreas: Normal size. No surrounding inflammation. Adrenals: Unremarkable Kidneys: No urolithiasis. No hydronephrosis. Bladder: Unremarkable Reproductive Organs: Normal uterine size and contour. Ovaries are unremarkable. Bowel: Unremarkable Appendix: Status post appendectomy. Lymph nodes: Unremarkable. Vasculature: The abdominal aorta and IVC contours are normal. Noncontrast technique limits evaluation. Peritoneum / Retroperitoneum: No free fluid or free air. Bones: Unremarkable CT/Abdomen/Pelvis without Cont IMPRESSION: NO UROLITHIASIS OR HYDRONEPHROSIS. NO ACUTE FINDINGS. Reading [facility] CC: CARLA Doss; Dr. Daniel Schneider DO ~ Wind Turbine Mechanical Engineer: Signed [facility]04-06-2025 Discharge summary Author Daniel Schneider [facility] Note Date/Time November 05, 2024 5:52 pm [facility] Medical Records Department [address] [place] [address] Emergency Department Summary 11/05/24 MR#: [id number] Acct: [id number] Name: KM STRANGE Rep #:[id number] : 1995 29 From: Daniel Isaacs PCP: CARLA Plascencia Status:REG ER Location: ED HPI History of Present Illness Chief Complaint: Abd Pain PFSH PFSH Home Medications ?Medication ?Instructions ?Recorded ?Last Taken ?Type fluticasone furoate 100 1 inh inhalation DAILY PRN 0 02/18/23 Unknown History mcg-vilanterol 25 mcg/dose inhalation powder (Breo Ellipta) mirtazapine 15 mg tablet 15 mg PO DAILY 02/18/23 Unkn own History montelukast 10 mg tablet 10 mg PO DAILY 02/18/23 Unkn own History (Singulair) pantoprazole 40 mg tablet,delayed 40 mg PO DAILY 02/18 Unknown History release Allergy/AdvReac Type Severity Reaction Status Date / Time Sulfa (Sulfonamide Allergy Intermediate Hives Verified 11/05/24 15:20 Antibiotics) Family History Mother Cancer pancreatic/cervical Diabetes Hypertension Father Hypertension Surgical History S/P laparoscopic procedure History of appendectomy Social History Smoking Status: Never smoker alcohol intake: current alcohol intake frequency: holidays/special occasions only substance use type: does not use EXAM Physical Exam Const Vital Signs: 11/05/24 15:17 11/05/24 17:28 Temperature 97.4 F L Temperature Source Oral Pulse Rate 98 91 Respiratory Rate 18 16 Blood Pressure 108/81 H 107/71 Blood Pressure Mean 90 83 Pulse Ox 98 100 Oxygen Delivery Method Room Air Room Air MDM MDM MDM Narrative Medical decision making narrative: HISTORY OF PRESENT ILLNESS: Chief complaint: Abdominal pain 29-year-old female history of endometriosis presents with abdominal pain and increased urinary frequency. Notes pain radiates to back. Notes is similar to prior flares of endometriosis. Denies history of kidney stones. Denies vaginalbleeding or discharge. Denies constipation or diarrhea. Notes history of multiple abdominal surgeries REVIEW OF SYSTEMS: Pertinent positives: abdominal pain Pertinent negatives: Vomiting PHYSICAL EXAM: Nursing triage notes reviewed, Vital signs reviewed Constitutional: please see [facility] HENT: MMM Eyes: Pupils equal round and reactive to light, Extraocular muscles intact Neck: No stridor, no JVD, full neck ROM Lungs: Clear to auscultation, No wheezing or rales. No increased work of breathing, no conversational dyspnea, no accessory muscle use, no nasal flaring. No respiratory distress noted Heart: Regular rate and rhythm, No murmurs, No rubs and No gallops, 2+ distal pulses (radial, femoral, posterior tibial) in all extremities Abdomen: Soft, there is no tenderness, rigidity, rebound or guarding, no obviousperitoneal signs, no palpable pulsatile abdominal masses, no auscultated abdominal bruit : No CVAT Extremities: No edema Neuro: No new focal neurological deficits, cranial nerves II through XII intact,5/5 strength in all present extremities. Intact sensation to light touch in all present extremities, 2+ reflexes bilateral patella tendons. Skin: No rash or lesions noted MEDICAL DECISION MAKING: Chief Complaint: please see HPI External records reviewed: Reviewed prior imaging studies Factors affecting care: Endometriosis, anxiety, depression, asthma, gallbladder sludge Social determinants of health: none History obtained from others: family Consults: none [facility] Narrative: Patient was hemodynamically stable, afebrile nontoxic-appearing. Abdominal Examoverall benign I considered the following differential diagnosis: AAA, small bowel obstruction,abdominal perforation, appendicitis, pancreatitis, hepatobiliary pathology (acute cholecystitis), mesenteric ischemia, pathology (ie nephrolithiasis, pyelonephritis). I obtained labs images to further assess any sign of a life-threatening etiology. I initially resuscitated the patient while he normal saline, 4 mg IV Zofran, oral Tylenol and 15 mg of IV Toradol. ALL IMAGES (IF OBTAINED) HAVE BEEN PERSONALLY REVIEWED AND INTERPRETED BY MYSELF. CBC with no leukocytosis to suggest systemic inflammation, no anemia thrombocytopenia CMP without evidence of acute kidney injury, significant electrolyte abnormality, anion gap to suggest end organ hypo-perfusion, no evidence of metabolic acidosis with a normal bicarbonate, no evidence of hepatobiliary obstructive pathology. Lipase is wnl indicating no pancreatic inflammation. Urinalysis shows no evidence of urinary inflammation suggestive of UTI Urine test is CT scan of the c abdomen pelvis noncontrast shows no evidence of nephrolithiasis I suspect the patient's presentation is secondary to a flare of her endometriosis. NSAIDs encouraged. Close HEAD OF ETHICS AND COMPLIANCE follow-up recommended. Strict return precautions were discussed. The patient and/or family, caregivers express understanding. The patient and/orfamily, caregivers agrees with the plan. Shared decision making: I will have a discussion with the patient and or visitors regarding risk/benefits of further testing or admission. They will be made aware of of the risk/benefits inherent in this decision they will be given the opportunity to voice understanding. Total critical care time today provided was at least 0 minutes. This excludes separately billable procedures. Critical care time (if documented) is secondary to the patient having high probability of clinically significant/life threatening deterioration in the patient's condition which required my urgent intervention. Impression: 1. Acute abdominal pain 2. Urinary frequency 3. History of endometriosis Dispo: Discharge home This note was generated with 9facts dictation software. It may contain incorrectwords, spelling, and punctuation that were not noted in review of the chart prior to signing. Lab Data Labs: Laboratory Results - last 24 hr 11/05/24 11/05/24 15:38 16:24 WBC 3.3 L RBC 4.47 Hgb 13.8 Hct 38.3 MCV 85.7 MCH 30.9 MCHC 36.0 RDW Std Deviation 36.7 RDW Coeff of Zander 11.9 Plt Count 160 MPV 10.4 Immature Gran % (Auto) 0.600 Neut % (Auto) 55.2 Lymph % (Auto) 32.5 [place] % (Auto) 9.9 Eos % (Auto) 1.8 Baso % (Auto) 0.0 Absolute Neuts (auto) 1.8 L Absolute Lymphs (auto) 1.08 Nucleated RBC % 0 Sodium 138 Potassium 3.6 Chloride 104 Carbon Dioxide 22.1 Anion Gap 11 BUN 11 Creatinine 0.68 L Estim Creat Clear Calc 97.03 Est GFR (MDRD) Non-Af 122 BUN/Creatinine Ratio 16.4 Glucose 80 Calcium 9.0 Total Bilirubin 0.27 AST 20 ALT 15 Alkaline Phosphatase 59 Total Protein 6.7 Albumin 4.3 Globulin 2.4 Albumin/Globulin Ratio 1.8 Lipase 31 Urine Color Yellow Urine Clarity Clear Urine pH 7.0 Ur Specific [place] 1.010 Urine Protein Negative Urine Glucose (UA) Normal Urine Ketones Negative Urine Occult Blood Negative Urine Nitrite Negative Urine Bilirubin Negative Urine Urobilinogen Normal Ur Leukocyte Esterase Negative Urine RBC 0 SEEN Urine WBC 0 SEEN Ur Squamous Epith Cells 0 SEEN Urine Bacteria 0 SEEN Urine Mucus 0 SEEN Urine Test Negative Radiography Diagnostic Testing: Clinical Impression(s) from Imaging Studies Abdomen/Pelvis CT 11/05/24 16:09 IMPRESSION: NO UROLITHIASIS OR HYDRONEPHROSIS. NO ACUTE FINDINGS. Reading [facility] T[facility] Chief Complaint: Abd Pain ED Provider: Daniel Schneider Dx/Rx/DC Orders Prescriptions: No Action mirtazapine 15 mg tablet 15 mg PO DAILY pantoprazole 40 mg tablet,delayed release (DR/EC) 40 mg PO DAILY montelukast [Singulair] 10 mg tablet 10 mg PO DAILY fluticasone furoate-vilanterol [Breo Ellipta] 100-25 mcg/dose blister with device 1 inh inhalation DAILY PRN Primary Care Provider: Ayaka Doss Referrals: Sukh Pollock PA [Non-Staff] - Print Language: Danish What to do if you have Problems For any increased pain, shortness of breath, bleeding, nausea or vomiting, chestpain, or any unexpected problems, contact your Primary Care Provider. Call [facility] ([phone]) or report to the closest Emergency Room. Call 911 if necessary. 11/05/24 1752 <Electronically signed by Daniel Schneider DO> Cosigner Signature (if applicable): CC: CONSTRUCTION CARPENTERInocencio Doss ~ Signed [facility] Work Phone: 1(190) 174-588302-19-2025 History of Present illness Narrative* Ayaka Doss APRN-BOX TOE CEMENTER - 09/20/2024 2:50 PM EST Subjective Patient ID: Km Strange is a 29 y.o. female who presents for Sick Visit. HPI Here today for acute concerns with URI, she was treated with antibiotics and no improvement. She reports a cough, congestion, and low grade fever. She completed a course of azithromycin and took bromfed PRN. She does have concerns for early and would like a blood test before she gets a chest xray Review of Systems Constitutional: Positive for chills, fatigue and fever. HENT: Negative for congestion, sinus pressure and sinus pain. Respiratory: Positive for cough. Negative for shortness of breath. Cardiovascular: Negative for chest pain and palpitations. Gastrointestinal: Negative for nausea and vomiting. Neurological: Negative for light-headedness and headaches. Objective BP 109/73 (Patient Position: Sitting) Pulse 89 Temp 36.4 C (97.5 F) Ht 1.524 m (5') Wt 55.8kg (123 lb) BMI 24.02 kg/m Physical Exam Cardiovascular: Rate and Rhythm: Normal rate and regular rhythm. Pulmonary: Effort: Pulmonary effort is normal. Breath sounds: Normal breath sounds. No wheezing or rales. Neurological: Mental Status: She is alert and oriented to person, place, and time. Assessment/Plan Problem List Items Addressed This Visit None Visit Diagnoses Codes Bronchitis - Primary J40 Relevant Orders XR chest 2 views , unspecified gestational age ([facility]) Z34.90 Relevant Orders HCG, quantitative, Bronchitis -Completed azithromycin and bromfed PRN -Chest xray ordered, pt concerned about pneumonia -Encouraged supportive care with rest, hydration, and NSAIDs for fever -HCG blood ordered documented in this [facility] Work Phone: 1(172) 994-660002-08-2025 History of Present illness Narrative* TOM Lazo - 09/09/2024 9:15 AM EST 29 y.o. female presents for evaluation of URI. Symptoms including cough, congestion, body aches, malaise, and headache have been present for 3 days and refractory to OTC meds. No fever, chills, nausea, vomiting, abdominal pain, CP, or SOB. No exacerbating factors. No known COVID 19/flu exposure. Vitals: 09/09/24 0912 BP: 106/73 Pulse: 98 Temp: 36.8 C (98.2 F) SpO2: 98% Allergies Allergen Reactions Serotonin Hives and Unknown Serotonin Reuptake Inhibitors Sulfa (Sulfonamide Antibiotics) Hives Medication Documentation Review Audit Reviewed by Melvina Petersen MA (Concrete Batcher) on 09/09/24 at 0913 Medication Order Taking? Sig Documenting Provider Last Dose Status albuterol 0.63 mg/3 mL nebulizer solution [id number] Yes Inhale 3 mL. Historical ProviderMD Taking Active budesonide-formoteroL (Symbicort) 160-4.5 mcg/actuation inhaler [id number] Yes Inhale 2 puffs 2 times a day. Rinse mouth with water after use to reduce aftertaste and incidence of candidiasis. Do not swallow. Historical Provider, Taking Active docusate sodium 250 mg capsule [id number] No Take 1 capsule (250 mg) by mouth once daily. HistoricalProviderMD Taking Active methylPREDNISolone (Medrol Dospak) 4 mg tablets [id number] Take as directed on package. Evens Palacios APRN-RABIA Active pantoprazole (ProtoNix) 40 mg EC tablet [id number] Yes Take 1 tablet (40 mg) by mouth once daily. TOM Combs Taking Active sennosides-docusate sodium (Suzanne-Colace) 8.6-50 mg tablet [id number] No Take 1 tablet by mouth 2 times a day. Jayden Taylor MD Taking Active sertraline (Zoloft) 50 mg tablet [id number] Yes Take 1 tablet (50 mg) by mouth once daily. TOM Combs Active Past Medical History: Diagnosis Date Anxiety and depression Asthma Endometriosis GERD (gastroesophageal reflux disease) IBS (irritable bowel syndrome) Past Surgical History: Procedure Laterality Date APPENDECTOMY 2018 laparoscopy LAPAROSCOPY DIAGNOSTIC / BIOPSY / ASPIRATION / LYSIS 10/14/2023 w/ fulguration of endo, no biopsies taken MOUTH SURGERY ROS See HPI Physical Exam Vitals and nursing note reviewed. Constitutional: Appearance: She is ill-appearing (mildly). HENT: Head: Normocephalic and atraumatic. Right Ear: Tympanic membrane and ear canal normal. Left Ear: Tympanic membrane and ear canal normal. Nose: Congestion present. Mouth/Throat: Mouth: Mucous membranes are moist. Pharynx: Oropharynx is clear. Eyes: Extraocular Movements: Extraocular movements intact. Conjunctiva/sclera: Conjunctivae normal. Pupils: Pupils are equal, round, and reactive to light. Cardiovascular: Rate and Rhythm: Normal rate. Pulmonary: Effort: Pulmonary effort is normal. Breath sounds: Normal breath sounds. Skin: General: Skin is warm and dry. Neurological: General: No focal deficit present. Mental Status: She is alert and oriented to person, place, and time. Psychiatric: Mood and Affect: Mood normal. Behavior: Behavior normal. Recent Results (from the past hour) POCT SARS-COV-2/FLU/RSV PCR SYMPTOMATIC manually resulted Collection Time: 09/09/24 9:54 AM Result Value Ref Range POC Coronavirus 2019, PCR Not Detected Not Detected POC Flu A Result Not Detected Not Detected POC Flu B Result Not Detected Not Detected POC RSV PCR Not Detected Not Detected Assessment/Plan/MDM Km was seen today for uri. Diagnoses and all orders for this visit: Acute non-recurrent maxillary sinusitis (Primary) - azithromycin (Zithromax Z-Mahesh) 250 mg tablet; Take 2 tablets (500 mg) on Day 1, followed by 1 tablet (250 mg) once daily on Days 2 through 5. - beqafkrnbsxwpgl-afmhqqgfk-CK (Bromfed DM) 2-30-10 mg/5 mL syrup; Take 5 mL by mouth 4 times a dayas needed for allergies, congestion or cough. Acute upper respiratory infection - POCT SARS-COV-2/FLU/RSV PCR SYMPTOMATIC manually resulted Encouraged pt to use otc cold remedies PRN, push PO fluids and rest. Patient's clinical presentation is otherwise unremarkable at this time. Patient is discharged with instructions to follow-up with primary care or seek emergency medical attention for worsening symptoms or any new concerns. I did personally review Km's past medical history, surgical history, social history, as well as family history (when relevant). In this case, I also oversaw the her drug management by reviewingher medication list, allergy list, as well as the medications that I prescribed during the UC course and/or recommended as an out-patient (including possible OTC medications such as acetaminophen, NSAIDs , etc). After reviewing the items above, I did look at previous medical documentation, such as recent hospitalizations, office visits, and/or recent consultations with PCP/specialist. SDOH: Another factor that I considered in Km's care was her Social Determinants of Health (SDOH). During this UC encounter, she did not have social determinants of health. Those SDOH influencing Km's care are: none Evens Palacios CNP [facility] [phone] [facility] Work Phone: 1(414) 323-353701-29-2025 History of Present illness Narrative* TOM Combs - 08/30/2024 4:50 PM EST Subjective Patient ID: Km Strange is a 29 y.o. female who presents for UTI sx (Off and on for a month/). HPI Here today for UTI symptoms, reports she has symptoms of urgency, pelvic pain, and flank pain bilaterally. She has these symptoms frequently and it will also come and go. She reports she has dealt with this pain without answers. She did undergo endometriosis surgery in April, reports the pain is different and still persistent. Suspect possible interstitial cystitis, would like a urology referral. Denies any hematuria ever. Review of Systems Constitutional: Negative for chills, fatigue and fever. Respiratory: Negative for cough and shortness of breath. Gastrointestinal: Positive for abdominal pain and nausea. Genitourinary: Positive for flank pain, pelvic pain and urgency. Negative for dysuria, hematuria and menstrual problem. Objective BP 120/82 (Patient Position: Sitting) Pulse 67 Ht 1.524 m (5') Wt 55.4 kg (122 lb 3.2 oz) BMI 23.87 kg/m Physical Exam Abdominal: General: There is no distension. Tenderness: There is no abdominal tenderness. There is right CVA tenderness and left CVA tenderness. Neurological: Mental Status: She is alert and oriented to person, place, and time. Assessment/Plan Problem List Items Addressed This Visit None Visit Diagnoses Codes UTI symptoms R39.9 Relevant Orders POCT UA Automated manually resulted (Completed) US renal complete Referral to Urology UTI symptoms -US renal complete -Referral to Urology, hopes for cystoscopy and possible interstitial cystitis [facility] Work Phone: 1(999) 513-749611-13-2024 History of Present illness Narrative* TOM Combs - 06/14/2024 4:50 PM EST Subjective Patient ID: Km Strange is a 29 y.o. female who presents for No chief complaint on file.. HPI Pt here for telephone encounter to discuss Pt and physician are at two separate locations. Pt was verbally consented for the encounter Pt with acute concerns regarding her anxiety. Reports she had a similar spell last year where she tried a bunch of different medications without success. She had side effects to Wellbutrin, Buspar, Effexor and Cymbalta. She also reports panic attacks that included chest pain, and shakiness in her voice. She reports the anxiety is also causing interference at her job where she feels she cannot focus. At this time she discussed wanting ADHD testing, however, medication is not indicated as she is actively trying to conceive. She reports she got gene site testing last year as well and was going to try to track down those results. We discussed possibility of trying Zoloft vs Straterra. Review of Systems Constitutional: Negative for chills, fatigue and fever. Respiratory: Negative for cough and shortness of breath. Cardiovascular: Positive for chest pain and palpitations. Negative for leg swelling. Gastrointestinal: Negative for abdominal pain, constipation, diarrhea and nausea. Neurological: Negative for light-headedness and headaches. Psychiatric/Behavioral: Positive for decreased concentration. The patient is nervous/anxious. Objective There were no vitals taken for this visit. Physical Exam Assessment/Plan Problem List Items Addressed This Visit None ADHD vs anxiety -recommend testing from Dr Aleman -Zoloft vs Straterra pending if she finds gene site testing [facility] Work Phone: [phone]) 564-833310-01-2024 History of Present illness Narrative* TOM Lazo - 05/02/2024 11:40 AM EDT 28 y.o. female presents for evaluation of itchy rash to right upper abdomen and groin that began 2 evenings ago. States she recently had laparoscopic surgery for endometriosis. Has been taking oxycodone but no other new medications. Has not taken oxy since the day before the rash started. No fevers, drainage from rash, swelling or drainage from incision sites, abdominal pain out of proportion from expected post op pain, or any other associated symptoms. Did try otc steroid cream without improvement. No other complaints. Vitals: 05/02/24 1144 BP: 108/75 Pulse: 90 Resp: 18 Temp: 37.1 C (98.8 F) SpO2: 95% Allergies Allergen Reactions Serotonin Hives and Unknown Serotonin Reuptake Inhibitors Sulfa (Sulfonamide Antibiotics) Hives Medication Documentation Review Audit Reviewed by Jesus Stover MA (Concrete Batcher) on 05/02/24 at 1144 Medication Order Taking? Sig Documenting Provider Last Dose Status acetaminophen (Tylenol) 325 mg tablet [id number] Yes Take 3 tablets (975 mg) by mouth every 6 hours if needed for mild pain (1 - 3) for up to 20 doses. Jayden Taylor MD Taking Active albuterol 0.63 mg/3 mL nebulizer solution [id number] Yes Inhale 3 mL. Historical Provider, Taking Active Discontinued 04/27/24 1231 budesonide-formoteroL (Symbicort) 160-4.5 mcg/actuation inhaler [id number] Yes Inhale 2 puffs 2 times a day. Rinse mouth with water after use to reduce aftertaste and incidence of candidiasis. Do not swallow. Historical ProviderMD Taking Active docusate sodium 250 mg capsule [id number] Yes Take 1 capsule (250 mg) by mouth once daily. Historical Provider, Taking Active estradiol (Estrace) 0.01 % (0.1 mg/gram) vaginal cream [id number] Yes Apply to vagina nightly for 1 week then every Wednesday/Wednesday/Wednesday. Jayden Taylor MD Taking Active ibuprofen 600 mg tablet [id number] Yes Take 1 tablet (600 mg) by mouth every 6 hours if needed for moderate pain (4 - 6) for up to 20 doses. Jayden Taylor MD Taking Active Patient not taking: Discontinued 04/28/24 1316 ondansetron (Zofran) 4 mg tablet [id number] Yes Take 1 tablet (4 mg) by mouth every 6 hours if needed for nausea for up to 20 doses. Jayden Taylor MD Taking Active oxyCODONE (Roxicodone) 5 mg immediate release tablet [id number] Yes Take 1 tablet (5 mg) by mouth every 6 hours if needed for severe pain (7 - 10) for up to 12 doses. Jayden Taylor MD Taking Active Discontinued 04/27/24 1229 Discontinued 04/27/24 1230 pantoprazole (ProtoNix) 40 mg EC tablet [id number] Yes Take 1 tablet (40 mg) by mouth once daily. Ayaka Doss, 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 Taking Active sennosides-docusate sodium (Suzanne-Colace) 8.6-50 mg tablet [id number] Yes Take 1 tablet by mouth 2 times a day. Jayden Taylor MD Taking Active Past Medical History: Diagnosis Date Anxiety and depression Asthma (HHS-HCC) Endometriosis GERD (gastroesophageal reflux disease) IBS (irritable bowel syndrome) Past Surgical History: Procedure Laterality Date APPENDECTOMY 2018 laparoscopy LAPAROSCOPY DIAGNOSTIC / BIOPSY / ASPIRATION / LYSIS 10/14/2023 w/ fulguration of endo, no biopsies taken MOUTH SURGERY ROS See HPI Physical Exam Vitals and nursing note reviewed. Constitutional: Appearance: Normal appearance. Skin: Findings: Rash (mildly erythematous maculopapular rash without crusting or drainage or streaking toright upper abdomen and bilateral groin) present. Neurological: General: No focal deficit present. Mental Status: She is alert and oriented to person, place, and time. Psychiatric: Mood and Affect: Mood normal. Behavior: Behavior normal. Assessment/Plan/MDM Km was seen today for rash. Diagnoses and all orders for this visit: Allergic contact der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 (Primary) - methylPREDNISolone sod succinate (SOLU-Medrol) injection 125 mg - methylPREDNISolone (Medrol Dospak) 4 mg tablets; Take as directed on package. 125 mg IM solumedrol injection given in office, pt tolerated well and was discharged 15 min post injection in stable condition. Pt to watch and wait with medrol dose mahesh and only use if needed. To begin kenalog cream today PRN. Encouraged patient to continue to monitor for worsening symptoms and return to UC, follow up with surgeon or go to ED if symptoms do not improve. Patient's clinical presentation is otherwise unremarkable at this time. Patient is discharged with instructions to follow-up with primary care or seek emergency medical attention for worsening symptoms or any new concerns. I did personally review Km's past medical history, surgical history, social history, as well as family history (when relevant). In this case, I also oversaw the her drug management by reviewingher medication list, allergy list, as well as the medications that I prescribed during the UC course and/or recommended as an out-patient (including possible OTC medications such as acetaminophen, NSAIDs , etc). After reviewing the items above, I did look at previous medical documentation, such as recent hospitalizations, office visits, and/or recent consultations with PCP/specialist. SDOH: Another factor that I considered in Km's care was her Social Determinants of Health (SDOH). During this UC encounter, she did not have social determinants of health. Those SDOH influencing Km's care are: none Evens Palacios CNP [facility] [phone] [facility] Work Phone: 1([phone]) 326-866009-27-2024 History and physical note* Jayden Taylor MD - 04/28/2024 7:22 AM EDT Preoperative H+P - Minimally Invasive Gynecologic Surgery History Of Present Illness Km Strange 28 y.o. presents for robotic excision of endometriosis. Imaging: No recent pelvic imaging. Labs: - Recent CMP and CBC WNL - TSH 2021 WNL Screening: - Last pap 2021 negative cytology - GC/CT negative 10/2022 PMHx: asthma, GERD, anxiety/depression, IBS PSHx: diagnostic laparoscopy for endometriosis w/ fulguration, laparoscopic appendectomy 2019, dental surgery Past Medical History PAST MEDICAL HISTORY: Past Medical History: Diagnosis Date Anxiety and depression Asthma (HHS-HCC) Endometriosis GERD (gastroesophageal reflux disease) IBS (irritable bowel syndrome) Surgical History PAST SURGICAL HISTORY: Past Surgical History: Procedure Laterality Date APPENDECTOMY 2019 laparoscopy LAPAROSCOPY DIAGNOSTIC / BIOPSY / ASPIRATION / LYSIS 10/14/2023 w/ fulguration of endo, no biopsies taken MOUTH SURGERY Physical Exam BP 109/77 (Patient Position: Sitting) Pulse 87 Temp 36.6 C (97.9 F) (Temporal) Resp 16 Wt 54.4 kg (120 lb) LMP 04/16/2024 (Approximate) SpO2 100% BMI 23.44 kg/m Constitutional: No acute distress, well-nourished and well-developed HEENT: EOM grossly intact, MMM, neck supple and with full ROM Pulm: Effort normal. No accessory muscle usage. No respiratory distress. Neurological: She is alert and oriented to person place and time. Skin: Warm, no pallor. Psychiatric: She has normal mood and affect. Assessment/Plan Proceed w/ surgery as scheduled. Jayden Taylor MD [facility] Work Phone: [phone]) [phone] History and physical note* Jayden Taylor MD - 04/28/2024 7:22 AM EDT Preoperative H+P - Minimally Invasive Gynecologic Surgery History Of Present Illness Km Strange 28 y.o. presents for robotic excision of endometriosis. Imaging: No recent pelvic imaging. Labs: - Recent CMP and CBC WNL - TSH 2021 WNL Screening: - Last pap 2021 negative cytology - GC/CT negative 10/2022 PMHx: asthma, GERD, anxiety/depression, IBS PSHx: diagnostic laparoscopy for endometriosis w/ fulguration, laparoscopic appendectomy 2018, dental surgery Past Medical History PAST MEDICAL HISTORY: Past Medical History: Diagnosis Date Anxiety and depression Asthma (HHS-HCC) Endometriosis GERD (gastroesophageal reflux disease) IBS (irritable bowel syndrome) Surgical History PAST SURGICAL HISTORY: Past Surgical History: Procedure Laterality Date APPENDECTOMY 2019 laparoscopy LAPAROSCOPY DIAGNOSTIC / BIOPSY / ASPIRATION / LYSIS 10/14/2023 w/ fulguration of endo, no biopsies taken MOUTH SURGERY Physical Exam BP 109/77 (Patient Position: Sitting) Pulse 87 Temp 36.6 C (97.9 F) (Temporal) Resp 16 Wt 54.4 kg (120 lb) LMP 04/16/2024 (Approximate) SpO2 100% BMI 23.44 kg/m Constitutional: No acute distress, well-nourished and well-developed HEENT: EOM grossly intact, MMM, neck supple and with full ROM Pulm: Effort normal. No accessory muscle usage. No respiratory distress. Neurological: She is alert and oriented to person place and time. Skin: Warm, no pallor. Psychiatric: She has normal mood and affect. Assessment/Plan Proceed w/ surgery as scheduled. Jayden Taylor MD documented in [facility]Un[facility] Work Phone: 1(282) [phone] History of Present illness Narrative* TOM Combs - 04/27/2024 12:30 PM EDT Subjective Patient ID: Km Strange is a 28 y.o. female who presents for No chief complaint on file.. HPI Telephone visit today regarding, getting established with me. Denies any acute needs. She is having endometrial surgery 04/28. Asthma, reports she takes her symbicort daily and albuterol as needed, which is only during an asthma flare now. Review of Systems Respiratory: Negative for shortness of breath. Cardiovascular: Negative for chest pain and palpitations. Neurological: Negative for light-headedness and headaches. Objective There were no vitals taken for this visit. Physical Exam Assessment/Plan Problem List Items Addressed This Visit None Visit Diagnoses Codes Health maintenance examination - Primary Z00.00 Relevant Orders CBC and Auto Differential Comprehensive metabolic panel TSH with reflex to Free T4 if abnormal Gastroesophageal reflux disease without esophagitis K21.9 Relevant Medications pantoprazole (ProtoNix) 40 mg EC tablet Yearly physical -Lab work ordered GERD -Takes protonix documented in this encounterUnAC[facility] Work Phone: 1(804) 768-912705-22-2024 History of Present illness Narrative* Jayden Taylor MD - 12/22/2023 3:00 PM EDT Division of Minimally Invasive Gynecologic Surgery [facility] 12/18/23 Gynecology Consult HISTORY OF PRESENT ILLNESS: Km Strange 28 y.o. presents in follow for endometriosis. Last saw me 11/2022 and was recommended PFPT, vaginal Valium, and consideration was given for surgery vs suppression pending fertility goals. She did not try the suppository or PFPT due to cost and availability. She underwent diagnostic laparoscopy w/ fulguration 10/14/23 for endometriosis. No biopsies were taken. Endometriosis was noted on dome of bladder, left ureter/uterosacral region, left ovarian fossae,and right uterosacral ligament. She was given SHAHANA's after surgery, but is planning to try for . However sex is so painful,that she is only able to tolerate having sex 3-4 times per year. She has tried SHAHANA's in the past, but did not tolerate them well. She brought pictures from her surgery today. Images show some questionable lesions and one classic large gunpowder lesion. She has been struggling w/ bladder pain symptoms that feel like UTIs as well (but with negative cultures). She is also having to Valsalva void. Imaging: No recent pelvic imaging. Labs: - Recent CMP and CBC WNL - TSH 2021 WNL Screening: - Last pap 2021 negative cytology - GC/CT negative 10/2022 PMHx: asthma, GERD, anxiety/depression, IBS PSHx: diagnostic laparoscopy for endometriosis w/ fulguration, laparoscopic appendectomy 2018, dental surgery PAST MEDICAL HISTORY: Past Medical History: Diagnosis Date Anxiety and depression Asthma (HHS-HCC) Endometriosis GERD (gastroesophageal reflux disease) IBS (irritable bowel syndrome) PAST SURGICAL HISTORY: Past Surgical History: Procedure Laterality Date APPENDECTOMY 2018 LAPAROSCOPY DIAGNOSTIC / BIOPSY / ASPIRATION / LYSIS 10/14/2023 MOUTH SURGERY PHYSICAL EXAMINATION: VITAL SIGNS: Ht 1.53 m (5' 0.24) Wt 54.4 kg (120 lb) LMP 11/29/2023 BMI 23.25 kg/m Constitutional: No acute distress, well-nourished and well-developed HEENT: EOM grossly intact, MMM, neck supple and with full ROM Pulm: Effort normal. No accessory muscle usage. No respiratory distress. Neurological: She is alert and oriented to person place and time. Skin: Warm, no pallor. Psychiatric: She has normal mood and affect. ASSESSMENT: Km Strange 28 y.o. presents in follow for endometriosis. Last saw tx 11/2022 and was recommended PFPT, vaginal Valium, and consideration was given for surgery vs suppression pending fertility goals. She did not try the suppository or PFPT due to cost and availability. Underwent laparoscopic fulguration 10/2023 w/ pictures (patient provided) showing gunpowder plaques. - We discussed today the multiple etiologies of chronic pelvic pain, including endometriosis, adenomyosis, GI etiologies, MSK etiologies, and centralization of pain. I am primarily suspicious of endometriosis and pelvic floor dysfunction in her case, but with her urinary symptoms bladder pain syndromes are a possibility as well. We discussed the role of surgical excision in the management of endom etriosis and the estimated 15-20% recurrence rate in the future. - She did not get adequate relief after fulguration surgery. - I do think surgical excision is appropriate for this patient, and she desires to proceed with an aggressive surgical approach. Despite having recent fulguration, I do think this is reasonable as itdid not adequately treat her pain and she is trying for fertility. - We did however discuss that given the likelihood of pelvic floor dysfunction and the possibility of centralization of pain, she may not experience complete relief from surgery. She is aware she mayrequire further treatment for these etiologies of pain after surgery. We also reviewed that while endometriosis was seen on the bladder, other sources of bladder pain syndromes are a possibility as well. - We reviewed the risks/benefits/alternatives to surgery. She is aware of the risk of bleeding, infection, and damage to nearby structures, including reproductive structures, bladder, ureters, bowel,and vasculature. She is agreeable to blood transfusion if recommended. We also reviewed the possibility of bladder resection and need for outpatient urinary catheter should this occur. She understands and is in agreement with this plan. PLAN: - Schedule for Robotic excision of endometriosis, chromopertubation, cystoscopy, possible bladder resection, any indicated procedure. PAT: No. Location: [place]. - PFPT referral, yoga for pelvic pain, Flexeril PRN - Interested in trial of vaginal estrogen cream for pain w/ intercourse Jayden Taylor MD 12/18/23 2:02 PM Answers submitted by the patient for this visit: Abdominal Pain Questionnaire (Submitted on 12/19/2023) Chief Complaint: Abdominal pain Chronicity: chronic Onset: more than 1 year ago Onset quality: gradual Frequency: every several days Progression since onset: unchanged Pain location: suprapubic region, left flank Pain - numeric: 8/10 Pain quality: aching, burning, cramping, a sensation of fullness Radiates to: LLQ, suprapubic region, pelvis anorexia: Yes arthralgias: Yes belching: Yes constipation: Yes diarrhea: No dysuria: Yes fever: No flatus: Yes frequency: Yes headaches: Yes hematochezia: No hematuria: No melena: No myalgias: No nausea: Yes weight loss: No vomiting: No Aggravated by: bowel movement, certain positions, eating, urination Relieved by: nothing Diagnostic workup: surgery documented in this [facility] Work Phone: 1([phone]) 350-939203-29-2024 History of Present illness Narrative* Jameel Hernandez MD - 10/29/2023 2:15 PM EDT Km Strange is a 28 y.o. year old female patient. PCP = Sukh Pollock PA-C Chief Complaint Patient presents with Post-op Visit Patient is here for her post op visit and has some questions regarding her bladder issues. HPI Presents for postop checkup following diagnostic laparoscopy for pelvic pain. She voices no complaints other than noticing some pressure in the bladder region when she tries to void but had the symptoms prior to surgery.. Denies any urinary frequency or pain with urination. OB History No obstetric history on file. Past Medical History: Diagnosis Date Abnormal findings on diagnostic imaging of other parts of digestive tract 11/09/[address] scan, sigmoid colon Anxiety Constipation, unspecified 06/24/2021 Constipation, acute Depression Encounter for screening for infections with a predominantly sexual mode of transmission 01/14/2022 Screening for STD (sexually transmitted disease) Encounter for screening for malignant neoplasm of cervix 01/14/2022 Screening for cervical cancer Other conditions influencing health status Menstruation Other constipation 11/09/2019 Other constipation Other dysphagia 11/09/2019 Esophageal dysphagia Other general symptoms and signs 09/01/2021 Flu-like symptoms Personal history of other diseases of the respiratory system 09/01/2019 History of acute sinusitis Personal history of other specified conditions History of nausea and vomiting Personal history of other specified conditions 04/04/2020 History of abdominal pain Personal history of urinary (tract) infections History of urinary tract infection Unspecified asthma with (acute) exacerbation 01/28/2022 Exacerbation of asthma Unspecified asthma with (acute) exacerbation 06/24/2021 Asthma exacerbation Past Surgical History: Procedure Laterality Date APPENDECTOMY 2019 LAPAROSCOPY DIAGNOSTIC / BIOPSY / ASPIRATION / LYSIS 10/14/2023 MOUTH SURGERY Review of Systems: Constitutional: No fever or chills Respiratory: No shortness of breath, or cough Cardiovascular: No chest pain or syncope Breasts: No breast pain, no masses, no nipple discharge Gastrointestinal: No nausea, vomiting, or diarrhea, no abdominal pain Genitourinary: No dysuria or frequency Gynecology: Negative except as noted in history of present illness All other: All other systems reviewed and negative for complaint Medication Documentation Review Audit Reviewed by Jameel Hernandez MD (Physician) on 10/29/23 at 1421 Medication Order Taking? Sig Documenting Provider Last Dose Status acetaminophen-codeine (Tylenol w/ Codeine #3) 300-30 mg tablet [id number] Take 1 tablet by mouth every 6 hours if needed for moderate pain (4 - 6) or severe pain (7 - 10) for up to 10 doses. Jameel Hernandez MD Active albuterol 0.63 mg/3 mL nebulizer solution [id number] No Inhale 3 mL. Sue Herrera MD Past Week Active Breo Ellipta 200-25 mcg/dose inhaler [id number] No Inhale 1 puff by mouth once daily Sukh Pollock PA-C Past Month Active budesonide-formoteroL (Symbicort) 160-4.5 mcg/actuation inhaler [id number] No Inhale 2 puffs 2 timesa day. Rinse mouth with water after use to reduce aftertaste and incidence of candidiasis. Do not swallow. Sue Herrera MD 10/13/2023 Active docusate sodium (Colace) 100 mg capsule [id number] No Take 1 capsule (100 mg) by mouth 2 times a day. Sue Herrera MD 10/13/2023 Active LORazepam (Ativan) 1 mg tablet [id number] Take 1 tablet (1 mg) by mouth every 8 hours if needed for anxiety for up to 7 days. 1/2 or 1 tab q8 prn panic attack Sukh Santiago ANGELA Pollock 05/08/23 2359 ondansetron (Zofran) 4 mg tablet [id number] No Take 1 tablet (4 mg) by mouth every 6 hours. Sukh Santiago ANGELA Pollock Past Month Active ondansetron ODT (Zofran-ODT) 8 mg disintegrating tablet [id number] Take 1 tablet (8 mg) by mouth every 8 hours if needed for nausea or vomiting. Jameel Hernandez MD Active pantoprazole (ProtoNix) 40 mg EC tablet [id number] No Take 1 tablet (40 mg) by mouth once daily. Maritza ANGELA Pollock 10/13/2023 Active BP 124/68 Ht 1.53 m (5' 0.24) Wt 54.7 kg (120 lb 9.6 oz) LMP 09/04/2023 Comment: test done and was negative BMI 23.37 kg/m PHYSICAL EXAMINATION: Well-developed, well nourished, in no acute distress, alert and oriented x three, is pleasant and cooperative. HEENT: Clear. Pupils equal, round and reactive to light and accommodation. Extraocular muscles are intact. Oral mucosa pink without exudate. NECK: No lymphadenopathy, no thyromegaly. LUNGS: Clear bilaterally. HEART: Regular rate and rhythm without murmurs. ABDOMEN: Normoactive bowel sounds, soft and nontender, no guarding or rebound tenderness, no CVA tenderness. Subumbilical incisions healing well, well- approximated, no erythema or drainage. EXTREMITIES: No clubbing, cyanosis or edema. NEUROLOGIC: Cranial nerves II-XII grossly intact. Problem List Items Addressed This Visit None Visit Diagnoses Postoperative visit - Primary Endometriosis determined by laparoscopy Relevant Medications drospirenone-ethinyl estradioL (Loulou, 28,) 3-0.03 mg tablet Provider Impression: 1. Postop checkup 2. Endometriosis Patient was shown pictures from the surgery which reveals endometriosis of the dome of the bladder,left uterosacral/ureter region, endometriosis in the left ovarian fossa and on the right uterosacral ligament. She was informed of options of treatment of control pills or Lupron. She wishes tostart control pills as she is considering on trying to conceive in about 3 to 4 months. Patien t to return in March for annual exam. documented in this [facility] Work Phone: 1(549) 376-329103-14-2024 Miscellaneous Notes* Op Note - Jameel Hernandez MD - 10/14/2023 9:31 AM EDT Diagnostic Laparoscopy Operative Note Date: 10/14/2023 OR Location: [facility] OR Name: Km Strange, : 1995, Age: 28 y.o., , Sex: female Diagnosis Pre-op Diagnosis * Chronic pelvic pain in female [R10.2, G89.29] Post-op Diagnosis * Chronic pelvic pain in female [R10.2, G89.29] Endometriosis Procedures Diagnostic Laparoscopy 35100 - LA LAPS ABD PRTM&OMENTUM DX W/WO SPEC BR/WA SPX Surgeons * Jameel Hernandez - Primary Resident/Fellow/Other Study Lead: Surgeon(s) and Role: Justin Herrmann Procedure Summary Anesthesia: General ASA: II Anesthesia Staff: Anesthesiologist: Chad Alvarez DO Estimated Blood Loss: 2mL Intra-op Medications: Administrations occurring from 0850 to 1020 on 10/14/23: Medication Name Total Dose aprepitant (Emend) capsule 40 mg 40 mg lactated Ringer's infusion Cannot be calculated scopolamine (Transderm-Scop) patch 1 patch 1 patch midazolam (Versed) injection 2 mg 2 mg Anesthesia Record Intraprocedure I/O Totals Intake Neostigmine 0.00 mL The total shown is the total volume documented since Anesthesia Start was filed. Propofol Drip 0.00 mL The total shown is the total volume documented since Anesthesia Start was filed. lactated Ringer's infusion 700.00 mL Total Intake 700 mL Specimen: No specimens collected Staff: Refractory Furnace Designer: Johnny Michaels RN Scrub Person: Tae Herrmann; Masha Ndiaye Drains and/or Catheters: [REMOVED] Urethral Catheter Non-latex 16 Fr. (Removed) Tourniquet Times: Implants: Findings: Size anteverted uterus. Both ovaries and tubes appeared normal. Noted powder burn type endometriosis on the dome of the of the bladder as well as near the left uterosacral as well as left ovarian fossa. There was also some endometriosis on the right uterosacral region. The dome of the diaphragm and liver edge appeared normal. No evidence of any scar tissue in the pelvis. Indications: Km Strange is an 28 y.o. female who is having surgery for Chronic pelvic pain in female [R10.2, G89.29]. The patient was seen in the preoperative area. The risks, benefits, complications, treatment options, non-operative alternatives, expected recovery and outcomes were discussed with the patient. The possibilities of reaction to medication, pulmonary aspiration, injury to surrounding structures, bleeding, recurrent infection, the need for additional procedures, failure to diagnose a condition, and creating a complication requiring transfusion or operation were discussed with the patient. The patient concurred with the proposed plan, giving informed consent. The site of surgery was properly noted/marked if necessary per policy. The patient has been actively warmed in preoperative area. Preoperative antibiotics are not indicated. Venous thrombosis prophylaxis have been ordered including bilateral sequential compression devices Procedure Details: Procedure: Patient brought into the operating room and placed in the supine position. She had the sequential compression device on the lower extremities placed preoperatively. After an adequate level of generalanesthesia, she was then placed in the low lithotomy position. The abdomen, perineum and vagina were prepped and draped in the usual sterile fashion. Bimanual exam was performed revealing a normal sized uterus. No evidence of adnexal masses. The urinary bladder was drained using a Red Adams catheter. A weighted speculum was placed in the vagina. The anterior vaginal wall was elevated. The anterior lip of the cervix was grasped with an Allis clamp. The uterus was sounded to 7 cm. The cervix was gradually dilated with the Osiel dilators. Then the uterine manipulator was placed through the cervix into the uterine cavity. The Allis clamp and weighted speculum were removed. Attention was then brought to the abdomen, a 5mm sub-umbilical incision was made in the skin. The abdomen was lifted with towel clips that were placed on each side of the umbilicus. Veress needle wasdirected into the abdominal cavity and presence was confirmed by saline drop test. Pneumoperitoneumwas obtained with CO2. The 5mm direct view trocar with the 5mm laparoscope was placed through the incision and directed into the abdominal cavity without complication. The towel clips were then removed. The abdomen was inspected and the uterus, both ovaries and tubes appeared normal. Noted powder burn type endometriosis in the region of the dome of the bladder. Endometrial powder burn type implants near the left uterosacral and ureter region. There is also a powder burn endometrial implants in the left ovarian fossa and a few on the right uterosacral ligament. No evidence of scar tissue in the pelvis. Dome of the diaphragm appeared normal. Due to the location of the endometriosis, it was decided not to perform any biopsies since the endometrial implants were overlying other structures such as the bladder and the ureter. The CO2 was expressed through the trocar sleeve and the umbilical trocar was removed. The umbilical incision wasa closed with 4-O Monocryl in an interrupted subcuticular fashion and Dermabond. The uterine manipulator was removed. The procedure was ended. Sponge and needle counts were correct x 2. The patient tolerated the procedure well and was taken to PACU in good condition. Patient to receive Tylenol #3 one tablet po every 4 hours PRN (10). Also, prescription for Zofran will be sent to thepharmacy due to her history of nausea after surgeries. Patient to follow-up in office in 2 weeks. Justin Herrmann participated throughout the entirety of the case due to the complexity of the surgical case in order to complete the case. Complications: None; patient tolerated the procedure well. Disposition: PACU - hemodynamically stable. Condition: stable Additional Details: Attending Attestation: Jameel Hernandez * Preprocedure Instructions - Nancy Cameron RN - 10/11/2023 12:35 PM EDT No outpatient medications have been marked as taking for the 10/14/23 encounter (Hospital Encounter). NPO Instructions: Nothing to eat or drink after midnight Additional Instructions: Will need dedicated driver home, will receive call day before surgery with arrival time [facility] Work Phone: 1(360) 514-853403-14-2024 Note* Op Note - Jameel Hernandez MD - 10/14/2023 9:31 AM EDT Diagnostic Laparoscopy Operative Note Date: 10/14/2023 OR Location: [facility] OR Name: mK Strange, : 1995, Age: 28 y.o., , Sex: female Diagnosis Pre-op Diagnosis * Chronic pelvic pain in female [R10.2, G89.29] Post-op Diagnosis * Chronic pelvic pain in female [R10.2, G89.29] Endometriosis Procedures Diagnostic Laparoscopy 63130 - LA LAPS ABD PRTM&OMENTUM DX W/WO SPEC BR/WA SPX Surgeons * Jameel Hernandez - Primary Resident/Fellow/Other Study Lead: Surgeon(s) and Role: Justin Herrmann Procedure Summary Anesthesia: General ASA: II Anesthesia Staff: Anesthesiologist: Chad Alvarez DO Estimated Blood Loss: 2mL Intra-op Medications: Administrations occurring from 0850 to 1020 on 10/14/23: Medication Name Total Dose aprepitant (Emend) capsule 40 mg 40 mg lactated Ringer's infusion Cannot be calculated scopolamine (Transderm-Scop) patch 1 patch 1 patch midazolam (Versed) injection 2 mg 2 mg Anesthesia Record Intraprocedure I/O Totals Intake Neostigmine 0.00 mL The total shown is the total volume documented since Anesthesia Start was filed. Propofol Drip 0.00 mL The total shown is the total volume documented since Anesthesia Start was filed. lactated Ringer's infusion 700.00 mL Total Intake 700 mL Specimen: No specimens collected Staff: Refractory Furnace Designer: Johnny Michaels RN Scrub Person: Tae Ndiaye Drains and/or Catheters: [REMOVED] Urethral Catheter Non-latex 16 Fr. (Removed) Tourniquet Times: Implants: Findings: Size anteverted uterus. Both ovaries and tubes appeared normal. Noted powder burn type endometriosis on the dome of the of the bladder as well as near the left uterosacral as well as left ovarian fossa. There was also some endometriosis on the right uterosacral region. The dome of the diaphragm and liver edge appeared normal. No evidence of any scar tissue in the pelvis. Indications: Km Strange is an 28 y.o. female who is having surgery for Chronic pelvic pain in female [R10.2, G89.29]. The patient was seen in the preoperative area. The risks, benefits, complications, treatment options, non-operative alternatives, expected recovery and outcomes were discussed with the patient. The possibilities of reaction to medication, pulmonary aspiration, injury to surrounding structures, bleeding, recurrent infection, the need for additional procedures, failure to diagnose a condition, and creating a complication requiring transfusion or operation were discussed with the patient. The patient concurred with the proposed plan, giving informed consent. The site of surgery was properly noted/marked if necessary per policy. The patient has been actively warmed in preoperative area. Preoperative antibiotics are not indicated. Venous thrombosis prophylaxis have been ordered including bilateral sequential compression devices Procedure Details: Procedure: Patient brought into the operating room and placed in the supine position. She had the sequential compression device on the lower extremities placed preoperatively. After an adequate level of generalanesthesia, she was then placed in the low lithotomy position. The abdomen, perineum and vagina were prepped and draped in the usual sterile fashion. Bimanual exam was performed revealing a normal sized uterus. No evidence of adnexal masses. The urinary bladder was drained using a Red Adams catheter. A weighted speculum was placed in the vagina. The anterior vaginal wall was elevated. The anterior lip of the cervix was grasped with an Allis clamp. The uterus was sounded to 7 cm. The cervix was gradually dilated with the Osiel dilators. Then the uterine manipulator was placed through the cervix into the uterine cavity. The Allis clamp and weighted speculum were removed. Attention was then brought to the abdomen, a 5mm sub-umbilical incision was made in the skin. The abdomen was lifted with towel clips that were placed on each side of the umbilicus. Veress needle wasdirected into the abdominal cavity and presence was confirmed by saline drop test. Pneumoperitoneumwas obtained with CO2. The 5mm direct view trocar with the 5mm laparoscope was placed through the incision and directed into the abdominal cavity without complication. The towel clips were then removed. The abdomen was inspected and the uterus, both ovaries and tubes appeared normal. Noted powder burn type endometriosis in the region of the dome of the bladder. Endometrial powder burn type implants near the left uterosacral and ureter region. There is also a powder burn endometrial implants in the left ovarian fossa and a few on the right uterosacral ligament. No evidence of scar tissue in the pelvis. Dome of the diaphragm appeared normal. Due to the location of the endometriosis, it was decided not to perform any biopsies since the endometrial implants were overlying other structures such as the bladder and the ureter. The CO2 was expressed through the trocar sleeve and the umbilical trocar was removed. The umbilical incision wasa closed with 4-O Monocryl in an interrupted subcuticular fashion and Dermabond. The uterine manipulator was removed. The procedure was ended. Sponge and needle counts were correct x 2. The patient tolerated the procedure well and was taken to PACU in good condition. Patient to receive Tylenol #3 one tablet po every 4 hours PRN (10). Also, prescription for Zofran will be sent to thepharmacy due to her history of nausea after surgeries. Patient to follow-up in office in 2 weeks. Justin Herrmann participated throughout the entirety of the case due to the complexity of the surgical case in order to complete the case. Complications: None; patient tolerated the procedure well. Disposition: PACU - hemodynamically stable. Condition: stable Additional Details: Attending Attestation: Jameel Hernandez [facility] Work Phone: [phone]) [phone] Attending History and physical note* Jameel Hernandez MD - 10/14/2023 8:50 AM EDT H&P reviewed. The patient was examined and there are no changes to the H&P. Source Note - Jameel Hernandez MD - 09/24/2023 2:15 PM EST Km Hunt is a 28 y.o. year old female patient. PCP = Sukh Pollock PA-C Chief Complaint Patient presents with Pelvic Pain Patient c/o lower pelvic pain for years. Patient states its worse 8-10 days prior to her period andduring her period. LMP: 09/04/23. Abdominal Pain This is a chronic problem. The current episode started more than 1 year ago. The onset quality is undetermined. The problem occurs every several days. The most recent episode lasted 8 days. The problem has been waxing and waning. The pain is located in the suprapubic region and left flank. The painis at a severity of 8/10. The quality of the pain is aching, burning, cramping, a sensation of fulln ess and sharp. The abdominal pain radiates to the suprapubic region, left flank and pelvis. Associated symptoms include belching, dysuria, frequency, headaches and nausea. Pertinent negatives includeno anorexia, arthralgias, constipation, diarrhea, fever, flatus, hematochezia, hematuria, melena, myalgias, vomiting or weight loss. Nothing aggravates the pain. The pain is relieved by Certain positi ons and recumbency. Prior diagnostic workup includes CT scan, surgery and ultrasound. Presents being that she has had lower pelvic pain for several years. Patient has noticed that the discomfort is worse 8 to 10 days prior to her period and also during her menstrual flow. She furthermore has significant pain associated with intercourse for which she avoids intercourse due to the pain. She has regular monthly cycles without intermenstrual bleeding. Patient had a CT scan in October 2022 which showed normal pelvis. She had a normal pelvic ultrasound in December 2021. Patient is concernedfor possible endometriosis. She is not using anything for contraception at this time. She had a laparoscopic appendectomy in 2019. Patient has a history of irritable bowel syndrome. OB History No obstetric history on file. Past Medical History: Diagnosis Date Abnormal findings on diagnostic imaging of other parts of digestive tract 11/09/[address] scan, sigmoid colon Constipation, unspecified 06/24/2021 Constipation, acute Depression Encounter for screening for infections with a predominantly sexual mode of transmission 01/14/2022 Screening for STD (sexually transmitted disease) Encounter for screening for malignant neoplasm of cervix 01/14/2022 Screening for cervical cancer Other conditions influencing health status Menstruation Other constipation 11/09/2019 Other constipation Other dysphagia 11/09/2019 Esophageal dysphagia Other general symptoms and signs 09/01/2021 Flu-like symptoms Personal history of other diseases of the respiratory system 09/01/2019 History of acute sinusitis Personal history of other specified conditions History of nausea and vomiting Personal history of other specified conditions 04/04/2020 History of abdominal pain Personal history of urinary (tract) infections History of urinary tract infection Unspecified asthma with (acute) exacerbation 01/28/2022 Exacerbation of asthma Unspecified asthma with (acute) exacerbation 06/24/2021 Asthma exacerbation Past Surgical History: Procedure Laterality Date APPENDECTOMY 2019 Review of Systems: Constitutional: No fever or chills Respiratory: No shortness of breath, or cough Cardiovascular: No chest pain or syncope Breasts: No breast pain, no masses, no nipple discharge Gastrointestinal: No nausea, vomiting, or diarrhea, no abdominal pain Genitourinary: No dysuria or frequency Gynecology: Negative except as noted in history of present illness All other: All other systems reviewed and negative for complaint Medication Documentation Review Audit Reviewed by Jameel Hernandez MD (Physician) on 09/24/23 at 1451 Medication Order Taking? Sig Documenting Provider Last Dose Status albuterol 0.63 mg/3 mL nebulizer solution [id number] Inhale 3 mL. Historical Provider, Active Breo Ellipta 200-25 mcg/dose inhaler [id number] Inhale 1 puff by mouth once daily Sukh Pollock PA-C Active budesonide/formoterol fumarate (SYMBICORT INHL) [id number] Inhale. Historical Provider, Active DULoxetine (Cymbalta) [address] capsule [id number] Take one cap daily for one week then increase to 2 caps daily Sukh Pollock PA-C Active levalbuterol (Xopenex) 45 mcg/actuation inhaler [id number] Inhale 1 puff every 4 hours if needed. Historical Provider, Active LORazepam (Ativan) 1 mg tablet [id number] Take 1 tablet (1 mg) by mouth every 8 hours if needed for anxiety for up to 7 days. 1/2 or 1 tab q8 prn panic attack Sukh Pollock PA-C 05/08/23 6249 ondansetron (Zofran) 4 mg tablet [id number] Take 1 tablet (4 mg) by mouth every 6 hours. Sukh Pollock PA-C Active pantoprazole (ProtoNix) 40 mg EC tablet [id number] Take 1 tablet (40 mg) by mouth once daily. Sukh Pollock PA-C Active BP 118/64 Ht 1.524 m (5') Wt 55.7 kg (122 lb 12.8 oz) LMP 09/04/2023 BMI 23.98 kg/m PHYSICAL EXAMINATION: Well-developed, well nourished, in no acute distress, alert and oriented x three, is pleasant and cooperative. HEENT: Clear. Pupils equal, round and reactive to light and accommodation. Extraocular muscles are intact. Oral mucosa pink without exudate. NECK: No lymphadenopathy, no thyromegaly. LUNGS: Clear bilaterally. HEART: Regular rate and rhythm without murmurs. ABDOMEN: Normoactive bowel sounds, soft and nontender, no guarding or rebound tenderness, no CVA tenderness. EXTREMITIES: No clubbing, cyanosis or edema. NEUROLOGIC: Cranial nerves II-XII grossly intact. No orders of the defined types were placed in this encounter. Problem List Items Addressed This Visit Chronic pelvic pain in female - Primary Other Visit Diagnoses Dyspareunia in female Provider Impression: 1. Chronic pelvic pain 2. Dyspareunia Patient was informed of the options of being started on control pills, or Lupron to see if this would help with her symptoms. She was informed that the gold standard for diagnosing endometriosis is a diagnostic laparoscopy. Patient wishes to proceed with diagnostic laparoscopy. Patient informed of risks of surgery including risk of anesthesia, infection, bleeding, injury to internal organs including bowel, bladder or ureter, uterine perforation or fistula formation. Her questions were answered to her satisfaction and she agrees to undergo the procedure. Plan for diagnostic laparoscopy in several weeks. [facility] Work Phone: [phone]) [phone] History and physical note* Jameel Hernadnez MD - 10/14/2023 8:50 AM EDT H&P reviewed. The patient was examined and there are no changes to the H&P. Source Note - Jameel Hernandez MD - 09/24/2023 2:15 PM EST Km Hunt is a 28 y.o. year old female patient. PCP = Sukh Pollock PA-C Chief Complaint Patient presents with Pelvic Pain Patient c/o lower pelvic pain for years. Patient states its worse 8-10 days prior to her period andduring her period. LMP: 09/04/23. Abdominal Pain This is a chronic problem. The current episode started more than 1 year ago. The onset quality is undetermined. The problem occurs every several days. The most recent episode lasted 8 days. The problem has been waxing and waning. The pain is located in the suprapubic region and left flank. The painis at a severity of 8/10. The quality of the pain is aching, burning, cramping, a sensation of fulln ess and sharp. The abdominal pain radiates to the suprapubic region, left flank and pelvis. Associated symptoms include belching, dysuria, frequency, headaches and nausea. Pertinent negatives includeno anorexia, arthralgias, constipation, diarrhea, fever, flatus, hematochezia, hematuria, melena, myalgias, vomiting or weight loss. Nothing aggravates the pain. The pain is relieved by Certain positi ons and recumbency. Prior diagnostic workup includes CT scan, surgery and ultrasound. Presents being that she has had lower pelvic pain for several years. Patient has noticed that the discomfort is worse 8 to 10 days prior to her period and also during her menstrual flow. She furthermore has significant pain associated with intercourse for which she avoids intercourse due to the pain. She has regular monthly cycles without intermenstrual bleeding. Patient had a CT scan in October 2022 which showed normal pelvis. She had a normal pelvic ultrasound in December 2021. Patient is concernedfor possible endometriosis. She is not using anything for contraception at this time. She had a laparoscopic appendectomy in 2019. Patient has a history of irritable bowel syndrome. OB History No obstetric history on file. Past Medical History: Diagnosis Date Abnormal findings on diagnostic imaging of other parts of digestive tract 11/09/[address] scan, sigmoid colon Constipation, unspecified 06/24/2021 Constipation, acute Depression Encounter for screening for infections with a predominantly sexual mode of transmission 01/14/2022 Screening for STD (sexually transmitted disease) Encounter for screening for malignant neoplasm of cervix 01/14/2022 Screening for cervical cancer Other conditions influencing health status Menstruation Other constipation 11/09/2019 Other constipation Other dysphagia 11/09/2019 Esophageal dysphagia Other general symptoms and signs 09/01/2021 Flu-like symptoms Personal history of other diseases of the respiratory system 09/01/2019 History of acute sinusitis Personal history of other specified conditions History of nausea and vomiting Personal history of other specified conditions 04/04/2020 History of abdominal pain Personal history of urinary (tract) infections History of urinary tract infection Unspecified asthma with (acute) exacerbation 01/28/2022 Exacerbation of asthma Unspecified asthma with (acute) exacerbation 06/24/2021 Asthma exacerbation Past Surgical History: Procedure Laterality Date APPENDECTOMY 2019 Review of Systems: Constitutional: No fever or chills Respiratory: No shortness of breath, or cough Cardiovascular: No chest pain or syncope Breasts: No breast pain, no masses, no nipple discharge Gastrointestinal: No nausea, vomiting, or diarrhea, no abdominal pain Genitourinary: No dysuria or frequency Gynecology: Negative except as noted in history of present illness All other: All other systems reviewed and negative for complaint Medication Documentation Review Audit Reviewed by Jaemel Hernandez MD (Physician) on 09/24/23 at 1451 Medication Order Taking? Sig Documenting Provider Last Dose Status albuterol 0.63 mg/3 mL nebulizer solution [id number] Inhale 3 mL. Historical Provider, Active Breo Ellipta 200-25 mcg/dose inhaler [id number] Inhale 1 puff by mouth once daily Sukh Pollock PA-C Active budesonide/formoterol fumarate (SYMBICORT INHL) [id number] Inhale. Historical ProviderMD Active DULoxetine (Cymbalta) [address] capsule [id number] Take one cap daily for one week then increase to 2 caps daily Sukh Pollock PA-C Active levalbuterol (Xopenex) 45 mcg/actuation inhaler [id number] Inhale 1 puff every 4 hours if needed. Historical Provider, Active LORazepam (Ativan) 1 mg tablet [id number] Take 1 tablet (1 mg) by mouth every 8 hours if needed for anxiety for up to 7 days. 1/2 or 1 tab q8 prn panic attack Sukh Pollock PA-C 05/08/23 8217 ondansetron (Zofran) 4 mg tablet [id number] Take 1 tablet (4 mg) by mouth every 6 hours. Sukh Pollock, PA-C Active pantoprazole (ProtoNix) 40 mg EC tablet [id number] Take 1 tablet (40 mg) by mouth once daily. Sukh Santiago ANGELA Pollock Active BP 118/64 Ht 1.524 m (5') Wt 55.7 kg (122 lb 12.8 oz) LMP 09/04/2023 BMI 23.98 kg/m PHYSICAL EXAMINATION: Well-developed, well nourished, in no acute distress, alert and oriented x three, is pleasant and cooperative. HEENT: Clear. Pupils equal, round and reactive to light and accommodation. Extraocular muscles are intact. Oral mucosa pink without exudate. NECK: No lymphadenopathy, no thyromegaly. LUNGS: Clear bilaterally. HEART: Regular rate and rhythm without murmurs. ABDOMEN: Normoactive bowel sounds, soft and nontender, no guarding or rebound tenderness, no CVA tenderness. EXTREMITIES: No clubbing, cyanosis or edema. NEUROLOGIC: Cranial nerves II-XII grossly intact. No orders of the defined types were placed in this encounter. Problem List Items Addressed This Visit Chronic pelvic pain in female - Primary Other Visit Diagnoses Dyspareunia in female Provider Impression: 1. Chronic pelvic pain 2. Dyspareunia Patient was informed of the options of being started on control pills, or Lupron to see if this would help with her symptoms. She was informed that the gold standard for diagnosing endometriosis is a diagnostic laparoscopy. Patient wishes to proceed with diagnostic laparoscopy. Patient informed of risks of surgery including risk of anesthesia, infection, bleeding, injury to internal organs including bowel, bladder or ureter, uterine perforation or fistula formation. Her questions were answered to her satisfaction and she agrees to undergo the procedure. Plan for diagnostic laparoscopy in several weeks. [facility] Work Phone: [phone]) [phone] Note* Preprocedure Instructions - Nancy Cameron RN - 10/11/2023 12:35 PM EDT No outpatient medications have been marked as taking for the 10/14/23 encounter (Hospital Encounter). NPO Instructions: Nothing to eat or drink after midnight Additional Instructions: Will need dedicated driver home, will receive call day before surgery with arrival time [facility] Work Phone: 1([phone]) 297-348802-23-2024 History of Present illness Narrative* Jameel Hernandez MD - 09/24/2023 2:15 PM EST Km Hunt is a 28 y.o. year old female patient. PCP = Sukh Pollock PA-C Chief Complaint Patient presents with Pelvic Pain Patient c/o lower pelvic pain for years. Patient states its worse 8-10 days prior to her period andduring her period. LMP: 09/04/23. Abdominal Pain This is a chronic problem. The current episode started more than 1 year ago. The onset quality is undetermined. The problem occurs every several days. The most recent episode lasted 8 days. The problem has been waxing and waning. The pain is located in the suprapubic region and left flank. The painis at a severity of 8/10. The quality of the pain is aching, burning, cramping, a sensation of fulln ess and sharp. The abdominal pain radiates to the suprapubic region, left flank and pelvis. Associated symptoms include belching, dysuria, frequency, headaches and nausea. Pertinent negatives includeno anorexia, arthralgias, constipation, diarrhea, fever, flatus, hematochezia, hematuria, melena, myalgias, vomiting or weight loss. Nothing aggravates the pain. The pain is relieved by Certain positi ons and recumbency. Prior diagnostic workup includes CT scan, surgery and ultrasound. Presents being that she has had lower pelvic pain for several years. Patient has noticed that the discomfort is worse 8 to 10 days prior to her period and also during her menstrual flow. She furthermore has significant pain associated with intercourse for which she avoids intercourse due to the pain. She has regular monthly cycles without intermenstrual bleeding. Patient had a CT scan in October 2022 which showed normal pelvis. She had a normal pelvic ultrasound in December 2021. Patient is concernedfor possible endometriosis. She is not using anything for contraception at this time. She had a laparoscopic appendectomy in 2019. Patient has a history of irritable bowel syndrome. OB History No obstetric history on file. Past Medical History: Diagnosis Date Abnormal findings on diagnostic imaging of other parts of digestive tract 11/09/[address] scan, sigmoid colon Constipation, unspecified 06/24/2021 Constipation, acute Depression Encounter for screening for infections with a predominantly sexual mode of transmission 01/14/2022 Screening for STD (sexually transmitted disease) Encounter for screening for malignant neoplasm of cervix 01/14/2022 Screening for cervical cancer Other conditions influencing health status Menstruation Other constipation 11/09/2019 Other constipation Other dysphagia 11/09/2019 Esophageal dysphagia Other general symptoms and signs 09/01/2021 Flu-like symptoms Personal history of other diseases of the respiratory system 09/01/2019 History of acute sinusitis Personal history of other specified conditions History of nausea and vomiting Personal history of other specified conditions 04/04/2020 History of abdominal pain Personal history of urinary (tract) infections History of urinary tract infection Unspecified asthma with (acute) exacerbation 01/28/2022 Exacerbation of asthma Unspecified asthma with (acute) exacerbation 06/24/2021 Asthma exacerbation Past Surgical History: Procedure Laterality Date APPENDECTOMY 2018 Review of Systems: Constitutional: No fever or chills Respiratory: No shortness of breath, or cough Cardiovascular: No chest pain or syncope Breasts: No breast pain, no masses, no nipple discharge Gastrointestinal: No nausea, vomiting, or diarrhea, no abdominal pain Genitourinary: No dysuria or frequency Gynecology: Negative except as noted in history of present illness All other: All other systems reviewed and negative for complaint Medication Documentation Review Audit Reviewed by Jameel Hernandez MD (Physician) on 09/24/23 at 1451 Medication Order Taking? Sig Documenting Provider Last Dose Status albuterol 0.63 mg/3 mL nebulizer solution [id number] Inhale 3 mL. Historical Provider, Active Breo Ellipta 200-25 mcg/dose inhaler [id number] Inhale 1 puff by mouth once daily Sukh Pollock PA-C Active budesonide/formoterol fumarate (SYMBICORT INHL) [id number] Inhale. Historical Provider, Active DULoxetine (Cymbalta) [address] capsule [id number] Take one cap daily for one week then increase to 2 caps daily Sukh Pollock PA-C Active levalbuterol (Xopenex) 45 mcg/actuation inhaler [id number] Inhale 1 puff every 4 hours if needed. Historical Provider, Active LORazepam (Ativan) 1 mg tablet [id number] Take 1 tablet (1 mg) by mouth every 8 hours if needed for anxiety for up to 7 days. 1/2 or 1 tab q8 prn panic attack Sukh Santiago ANGELA Pollock 05/08/23 2359 ondansetron (Zofran) 4 mg tablet [id number] Take 1 tablet (4 mg) by mouth every 6 hours. Sukh Santiago ANGELA Pollock Active pantoprazole (ProtoNix) 40 mg EC tablet [id number] Take 1 tablet (40 mg) by mouth once daily. Sukh Santiago ANGELA Pollock Active BP 118/64 Ht 1.524 m (5') Wt 55.7 kg (122 lb 12.8 oz) LMP 09/04/2023 BMI 23.98 kg/m PHYSICAL EXAMINATION: Well-developed, well nourished, in no acute distress, alert and oriented x three, is pleasant and cooperative. HEENT: Clear. Pupils equal, round and reactive to light and accommodation. Extraocular muscles are intact. Oral mucosa pink without exudate. NECK: No lymphadenopathy, no thyromegaly. LUNGS: Clear bilaterally. HEART: Regular rate and rhythm without murmurs. ABDOMEN: Normoactive bowel sounds, soft and nontender, no guarding or rebound tenderness, no CVA tenderness. EXTREMITIES: No clubbing, cyanosis or edema. NEUROLOGIC: Cranial nerves II-XII grossly intact. No orders of the defined types were placed in this encounter. Problem List Items Addressed This Visit Chronic pelvic pain in female - Primary Other Visit Diagnoses Dyspareunia in female Provider Impression: 1. Chronic pelvic pain 2. Dyspareunia Patient was informed of the options of being started on control pills, or Lupron to see if this would help with her symptoms. She was informed that the gold standard for diagnosing endometriosis is a diagnostic laparoscopy. Patient wishes to proceed with diagnostic laparoscopy. Patient informed of risks of surgery including risk of anesthesia, infection, bleeding, injury to internal organs including bowel, bladder or ureter, uterine perforation or fistula formation. Her questions were answered to her satisfaction and she agrees to undergo the procedure. Plan for diagnostic laparoscopy in several weeks. documented in this [facility] Work Phone: [phone]) 140-896809-27-2023 History of Present illness Narrative* Sukh Pollock PA-C - 04/28/2023 4:50 PM EDT Subjective Patient ID: Km Hunt is a 27 y.o. female who presents for Anxiety (Patient would like to discuss anxiety options, states wean herself off all medications to see if symptoms would improve. Patient states needs to go back on medication but would like something that will not feel her groggy at work.). HPI Patient presents in follow-up for anxiety, depression, panic attacks, and possible ADHD. We have been trying to hammer this out for over a year with this patient. Patient has been noncompliant and/or not tolerated the medications prescribed. Patient had allergic reactions to SSRIs, Wellbutrin, and BuSpar. Patient did not tolerate the Remeron stating it made her apathetic and cloudy. Patient did not try the Seroquel when it was written. At the very beginning, venlafaxine was written and the patient did tolerate this citing only nausea at the beginning of treatment but stopped it arbitrarily stating it was no longer necessary. 4 months later, the patient returned with recurrent andworsening depression and panic attacks and that was when Remeron was started. Patient stopped all medications approximately 1 month ago arbitrarily. Patient was not happy with the overall feeling that was being due to the medication. Currently, the patient is feeling depressed, uninterested in daily activities, nauseous, having a reduced appetite, being very nervous in all situations, and insomnia. Patient presents today ready to reengage in treating anxiety, depression, and panic attacks. Patient also wants to discuss possible adult ADHD. Patient reports having symptoms consistent with this for at least a couple years. The patient's brother and father are both treated for this. The patient believes that this is at least contributory to the panic attacks. Patient focuses in on an idea or thought and cannot let it go in the cycles into feeling of fear and panic. Review of Systems Constitutional: See HPI Psychiatric: See HPI Neurologic: Alert and oriented X4, No numbness, No tingling. All other systems are negative Objective BP 130/77 Pulse 103 Ht 1.524 m (5') Wt 53.2 kg (117 lb 4.8 oz) BMI 22.91 kg/m Physical Exam General: Alert and oriented, No acute distress. Eye: Pupils are equal, round and reactive to light, Normal conjunctiva. HENT: Normocephalic, Neck: Supple Respiratory: Respirations are non-labored Musculoskeletal: Normal ROM and strength Integumentary: Warm, Dry, Intact, No pallor, No rash. Neurologic: Alert, Oriented, Normal sensory, Cranial Nerves II-XII are grossly intact Psychiatric: Cooperative, Appropriate mood & affect. Assessment/Plan Anxiety and depression: We will try Effexor again. Called in Zofran to go with it. The patient is currently taking jand-hse-qsvcmti formulations for insomnia which is somewhat helpful. Follow-up in 1month. Hopefully, the patient will tolerate this without issue however, we can change within the class if there is no allergic reaction but the nausea persists. Patient still has all the Ativan that was written before. Patient was instructed to break these in half and keep them in the car and in the house thus having them available all the time. Possible ADHD: ASRS v1.1 self reporting ADHD questionnaire showed that the patient is likely suffering from this as well. Once the anxiety and depression are well managed we will revisit this. Treatment options were lightly touched on. Problem List Items Addressed This Visit Anxiety and depression - Primary Relevant Medications venlafaxine XR (Effexor-XR) 37.5 mg 24 hr capsule Other Visit Diagnoses Panic attack Relevant Medications venlafaxine XR (Effexor-XR) 37.5 mg 24 hr capsule Final diagnoses: [F41.9, F32.A] Anxiety and depression [F41.0] Panic attack documented in this [facility] Work Phone: 1([phone]) 145-980008-03-2023 History of Present illness Narrative* Sukh Pollock PA-C - 03/04/2023 9:30 AM EDT Subjective Patient ID: Km Hunt is a 27 y.o. female who presents for Follow-up (FU 1 mos , patient states doing well on the Remeron.) and Tailbone Pain (Tailbone discomfort falling on a metal object x4 days ago. Patient coughed yesterday and felt a popping sensation. ). HPI Patient presents in follow-up for treatment of anxiety and depression with Remeron. Patient did tolerate the medication physically and reports very good results for the first week or 2. Effects of the medication have waned since. However, the patient is still in a better place than prior. Patient also reports falling down approximately 3 to 4 days ago. Patient slipped and fell backwardsand cause injury to the sacral area. Pain is exacerbated by pressure and ambulation with no alleviating factors. No other reported injuries. Review of Systems Constitutional: See HPI Musculoskeletal: See HPI Psychiatric: See HPI Neurologic: Alert and oriented X4, No numbness, No tingling. All other systems are negative Objective BP 110/66 Pulse 84 Ht 1.524 m (5') Wt 51.1 kg (112 lb 9.6 oz) BMI 21.99 kg/m Physical Exam General: Alert and oriented, No acute distress. Eye: Pupils are equal, round and reactive to light, Normal conjunctiva. HENT: Normocephalic, Neck: Supple Respiratory: Respirations are non-labored Musculoskeletal: Reduced spinal flexion and extension inhibited by pain; good range of motion with lateral flexion; tender over the sacrum Integumentary: Warm, Dry, Intact, No pallor, No rash. Neurologic: Alert, Oriented, Normal sensory, Cranial Nerves II-XII are grossly intact Psychiatric: Cooperative, Appropriate mood & affect. Assessment/Plan Anxiety depression: Increase Remeron 30 mg nightly. Patient instructed that if this is inadequate after 1 week, increase to 1 more time to 45 mg nightly. Follow-up in 6 months Injury of the sacrum: Flexeril and prednisone. Patient declined x-ray. Ice and rest otherwise. Problem List Items Addressed This Visit Anxiety and depression - Primary Relevant Medications mirtazapine (Remeron) 30 mg tablet Other Visit Diagnoses Injury of sacrum, initial encounter Relevant Medications cyclobenzaprine (Flexeril) 10 mg tablet predniSONE (Deltasone) 10 mg tablet mirtazapine (Remeron) 30 mg tablet Final diagnoses: [F41.9, F32.A] Anxiety and depression [S39.92XA] Injury of sacrum, initial encounter [facility] [phone]) [phone] History of Present illness Narrative* Sukh Pollock PA-C - 01/26/2023 11:50 AM EDT Subjective Patient ID: Km Hunt is a 27 y.o. female who presents for Abdominal Pain (Left lower abdomen pain continues and radiates to the lower back./) and Anxiety (Anxiety discuss options like referrals. ). HPI Patient presents to discuss several issues. Patient reports several weeks of progressively worsening low back pain. Patient states that the pain starts in the lumbar area and radiates to the front. No known trauma or precipitating event. Patient has taken muscle relaxers with some relief but the pain can be intense at times. Patient also presents to discuss anxiety and depression. Unfortunately, patient has been had allergic reactions to SSRIs, SNRIs, and Wellbutrin. Low-dose Seroquel was written on last visit but the patient did not take it. Patient reports persistent and worsening anxiety that does inhibit ADLs and affect nearly all aspects of life. Patient has panic attacks with some frequency but states these areusually surrounding an event or obligation. Patient reports that both parents have very severe anxiety and mostly never leave their house. Both are treated for this. Patient also reports intermittent vomiting in the morning. Patient reports bilious vomiting withoutknown precipitating event. Patient is treated for GERD with Protonix. Patient has seen gastroenterology here and in [place] with no change in course. No hematemesis or melena. Review of Systems Constitutional: See HPI Gastrointestinal: See HPI Psychiatric: See HPI Neurologic: Alert and oriented X4, No numbness, No tingling. All other systems are negative Objective BP 109/74 Pulse 54 Temp 36.4 C (97.5 F) Ht 1.524 m (5') Wt 52.2 kg (115 lb 1.6 oz) BMI 22.48 kg/m Physical Exam General: Alert and oriented, No acute distress. Eye: Pupils are equal, round and reactive to light, Normal conjunctiva. HENT: Normocephalic, Neck: Supple Respiratory: Respirations are non-labored Musculoskeletal: Normal ROM and strength Integumentary: Warm, Dry, Intact, No pallor, No rash. Neurologic: Alert, Oriented, Normal sensory, Cranial Nerves II-XII are grossly intact Psychiatric: Cooperative, Appropriate mood & affect. Assessment/Plan Low back pain: Etiology unclear. Recommend continue muscle relaxers, have to limit NSAIDs due to GERD and vomiting so short course of tramadol was written. OARRS reviewed, appropriate, and consitent with provided history. X-ray lumbar spine. Further recommendations pending results Bilious vomiting with nausea: Gallbladder ultrasound. Patient had recent LFTs that were normal. Further recommendations pending results Anxiety and depression with panic attacks: Treatment options reviewed. Start Remeron 15 mg nightly.Follow-up 1 month Problem List Items Addressed This Visit Anxiety and depression - Primary Relevant Medications mirtazapine (Remeron) 15 mg tablet Other Relevant Orders Referral to Psychology Other Visit Diagnoses Panic attack Relevant Medications mirtazapine (Remeron) 15 mg tablet Other Relevant Orders Referral to Psychology Bilious vomiting with nausea Relevant Orders US gallbladder Acute bilateral low back pain, unspecified whether sciatica present Relevant Medications traMADol (Ultram) 50 mg tablet Other Relevant Orders XR lumbar spine complete 4+ views Final diagnoses: [F41.9, F32.A] Anxiety and depression [F41.0] Panic attack [R11.14] Bilious vomiting with nausea [M54.50] Acute bilateral low back pain, unspecified whether sciatica present documented in this [facility] Work Phone: [phone]) 222-460106-26-2023 History of Present illness Narrative Km is a 27-year-old who 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 Patient has chronic pelvic pain and issearing a pain specialist. Currently she is scheduled to see a pelvic floor therapist but the next step may be evaluation of for endometriosis. She recently became just a few weeks ago. Her and her are not preventing a but also or thinking they would like to wait until next year.[address] Work Phone: [phone]) [phone] History of Present illness Narrative Km is a 27-year-old who comes in for follow-up from an ER visit. She reports that over the last month she has been having difficulty with urination. She reports that she has to buckle over and press on her bladder as if she is bloated in order to be able to void. She reports that her PCP has called in 2 courses of antibiotics for UTI without any significant relief. She reports some low-grade pain that has been going on now for approximately a month. She is reports that this is the second episode she has had over the last 12 months of this discomfort and voiding difficulties. She was under the impression that when she was seen at urgent care and in the emergency room that a urine culture was sent. Patient also reports that she has discomfort with intercourse. She was here last year and felt that discomfort that she was experiencing at that time was related to an IUD which was removed last summer.[facility] Work Phone: [phone] 616-353904-04-2023 History of Present illness Narrative* Mike Del Real MA - 11/03/2022 10:50 AM EDT Est pt here for ramonita ear pain, sore throat x 6 days. Fever on 10/29/2022. Taking OTC meds as needed. * Sukh Pollock PA-C - 11/03/2022 10:50 AM EDT Subjective Patient ID: Km Hunt is a 27 y.o. female who presents for Sore Throat and Earache. HPI Pharyngitis presents for evaluation of throat swelling and pain. 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 Pain is exacerbated by oral intake. Patient was seen in urgent care 3days ago, no treatment was rendered. No fever, chills, vomiting, URI symptoms, or other constitutional S/S. Also, patient stopped taking Effexor due to nausea. Patient states however there has been no need for it over the past couple weeks. Patient does admit that this is the pattern noted in the past where there are periods of happiness and then periods of sadness. Review of Systems Constitutional: See HPI Eye: No recent visual problem. ENT: See HPI Respiratory: See HPI Gastrointestinal: See HPI Neurologic: Alert and oriented X4, No numbness, No tingling. All other systems are negative Objective BP 105/71 Pulse 96 Temp 36.7 C (98 F) Ht 1.499 m (4' 11) Wt 57.2 kg (126 lb) SpO2 98% BMI 25.45 kg/m Physical Exam General: Alert and oriented, No acute distress. Eye: Pupils are equal, round and reactive to light, Normal conjunctiva. HENT: Normocephalic, mild to moderate oropharyngeal erythema without exudate; uvula is midline; bilateral tympanic membranes and canals unremarkable with mild bilateral eustachian tube tenderness; nontender cervical lymph nodes Neck: Supple Respiratory: Respirations are non-labored Musculoskeletal: Normal ROM and strength Integumentary: Warm, Dry, Intact, No pallor, No rash. Neurologic: Alert, Oriented, Normal sensory, Cranial Nerves II-XII are grossly intact Psychiatric: Cooperative, Appropriate mood & affect. Assessment/Plan Pharyngitis: Z-Mahesh, prednisone, Meds. Recommend starting antihistamine. Anxiety and depression with panic attacks: We have essentially exhausted all other classes of medicines except for second-generation antipsychotics. 25 mg Seroquel was written for the patient to takeat night as there is still a measure of insomnia. Patient requesting to hold this until depression symptoms return. Patient will contact office if this occurs and we will schedule a 1 month follow-upat that time. Problem List Items Addressed This Visit Anxiety and depression - Primary Relevant Medications QUEtiapine (SEROquel) 25 mg tablet Panic attacks Relevant Medications QUEtiapine (SEROquel) 25 mg tablet Other Visit Diagnoses Pharyngitis, unspecified etiology Relevant Medications azithromycin (Zithromax) 250 mg tablet predniSONE (Deltasone) 10 mg tablet lpigonziyocupjz-VH-tywvrrsceta 60-15-400 mg tablet Final diagnoses: [F41.9, F32.A] Anxiety and depression [F41.0] Panic attacks [J02.9] Pharyngitis, unspecified etiology documented in this [facility] Work Phone: [phone] 302-121604-03-2023 History of Present illness Narrative Km is a 27-year-old who comes in for follow-up from an ER visit. She reports that over the last month she has been having difficulty with urination. She reports that she has to buckle over and press on her bladder as if she is bloated in order to be able to void. She reports that her PCP has called in 2 courses of antibiotics for UTI without any significant relief. She reports some low-grade pain that has been going on now for approximately a month. She is reports that this is the second episode she has had over the last 12 months of this discomfort and voiding difficulties. She was under the impression that when she was seen at urgent care and in the emergency room that a urine culture was sent. Patient also reports that she has discomfort with intercourse. She was here last year and felt that discomfort that she was experiencing at that time was related to an IUD which was removed last summer.[facility] Work Phone: [phone] History of Present illness Narrative Km is a 27-year-old who comes in for follow-up from an ER visit. She reports that over the last month she has been having difficulty with urination. She reports that she has to buckle over and press on her bladder as if she is bloated in order to be able to void. She reports that her PCP has called in 2 courses of antibiotics for UTI without any significant relief. She reports some low-grade pain that has been going on now for approximately a month. She is reports that this is the second episode she has had over the last 12 months of this discomfort and voiding difficulties. She was under the impression that when she was seen at urgent care and in the emergency room that a urine culture was sent. Patient also reports that she has discomfort with intercourse. She was here last year and felt that discomfort that she was experiencing at that time was related to an IUD which was removed last summer.[address] Work Phone: [phone]) [phone] History of Present illness Narrative* Patient presents for discussion of possible depression, anxiety, and insomnia. * Patient reports having at least 3 panic attacks in the last month and with some regularity over thepast 1-2 years. Patient becomes short of breath, there is chest pressure, some dizziness, crying, and nauseous when they occur. There are seemingly small triggers including thinking about going to the store or being in social situations. 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 Patient reports the parents are difficult to deal with. Admittedly though, patient states that this is likely been present for many years prior. There is also an element of depression with emotional instability, unprovoked crying spells, and intermittent lackof jammie. No suicidal ideation. Previously, patient was attempting home remedies with some success. Patient states though that they become less successful over time. * Additionally, patient reports difficulty falling and staying asleep. Patient is attempted several [id number]-[id number]-[id number] remedies without improvement. * Patient states there is a family history of this with fairly severe case of this with her father. Patient denies any traumatic precipitating event. [facility] Work Phone: [phone] History of Present illness Narrative* Patient was seen today on a 2-week follow-up visit for exacerbation of the her asthma. She is currently on Breo 200/25 daily, Xopenex inhaler 2 puffs 4 times daily as needed shortness of breath and she did start on Claritin in the morning which she reports is definitely helped with her nasal congestion and what appears to be allergy symptoms related to this problem. I reviewed with her also the results of her RAST testing which indicated that she is allergic to dust mites local grasses and weeds. She also has allergies to cats. Talked about obtaining zip covers that she can get from the [facility] to wrap her mattress and pillows in. Patient's peak flow was 380 L which is improved over the 320 from her last visit. Normal peak flow would be about 420. * She has not had her PFT done which is scheduled for 02/16/2022 and we will follow-up with her on 02/25/2022. * Patient denies any cough or sputum production and no wheezing. She denies any dyspnea with daily activities. [facility] Work Phone: [phone] History of Present illness Narrative* 27 yo G0 referred by Dr. Lr for pelvic pain. * Km reports a hx of LLQ pelvic pain for the past 5 years. She is unsure if pain is cyclical, but its not related to bleeding. It happens several times a year, but she has not noticed a pattern. She has tried multiple other methods of hormonal suppression, including SHAHANA's, NuvaRing. Pain continued despite suppression. She also tried progesterone IUD, but this was removed due to persistent discomfort w/ IUD. Tylenol and ibuprofen have not offered relief. She has not tried PFPT. * She does report deep dyspareunia, as well as pain w/ eating/drinking. Recently, she has developed persistent dysuria with difficult voiding completely. She has had several rounds of antibiotics for UTI without improvement in symptoms. Recent UCx negative. She does have a history of moderate urinaryretention w/ Valsalva voiding. Of note, urinary retention is most significant when LLQ pain flares. * Menses occur somewhat regularly, but they are often 5-6 days late. She does report intermittent ovulatory pain (suspected). * Pelvic US 12/2021 unremarkable. * Last pap 12/2021 negative cytology * PMHx: asthma, GERD, anxiety/depression, IBS * PSHx: laparoscopic appendectomy 2019 (pathology not available), wisdom teeth [id number] Work Phone: Chief complaint Narrative - Reported* KM HUNT is here for an initial evaluation. * Reason for Visit: Severe persistent Asthma. * Appointment requested by: Dr. Chávez; PCP: Ravin Pollock. [facility] [address] Work Phone: chief complaint Narrative - Reported* KM HUNT is here for an initial evaluation. * Reason for Visit: Severe persistent Asthma. * Appointment requested by: Dr. Chávez; PCP: Ravin Pollock. [facility] [address] Work Phone: Evaluation note* Diagnosis Anxiety and depression- Primary Panic attacks Panic disorder without agoraphobia Pharyngitis, unspecified etiology documented in this encounter [facility] Work Phone: Evaluation note* Diagnosis Anxiety and depression- Primary Panic attack Panic disorder without agoraphobia Bilious vomiting with nausea Acute bilateral low back pain, unspecified whether sciatica present documented in this encounter [facility] Work Phone: [phone] note* Diagnosis Anxiety and depression- Primary Injury of sacrum, initial encounter documented in this encounter [facility] Work Phone: [phone] note* Diagnosis Anxiety and depression- Primary Panic attack Panic disorder without agoraphobia Nausea in adult documented in this encounter [facility] Work Phone: [phone] note* Diagnosis Chronic pelvic pain in female- Primary Unspecified symptom associated with female genital organs Dyspareunia in female Chronic pelvic pain in female- Primary Unspecified symptom associated with female genital organs documented in this encounter [facility] Work Phone: [phone] note* Diagnosis Chronic pelvic pain in female- Primary Unspecified symptom associated with female genital organs Chronic pelvic pain in female Unspecified symptom associated with female genital organs PONV (postoperative nausea and vomiting) Nausea with vomiting PONV (postoperative nausea and vomiting) Nausea with vomiting documented in this encounter [facility] Work Phone: [phone] note* Diagnosis Postoperative visit- Primary Endometriosis determined by laparoscopy documented in this encounter [facility] Work Phone: [phone] note* Diagnosis Endometriosis determined by laparoscopy- Primary Dyspareunia in female documented in this encounter [facility] Work Phone: [phone] note* Diagnosis Allergic contact der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- Primary Contact dermatitis and other eczema due to other chemical products documented in this encounter [facility] Work Phone: [phone] note* Diagnosis Panic attacks- Primary Panic disorder without agoraphobia Anxiety and depression documented in this encounter [facility] Work Phone: [phone] note* Diagnosis Endometriosis determined by laparoscopy- Primary Health maintenance examination- Primary Unspecified general medical examination Gastroesophageal reflux disease without esophagitis Esophageal reflux Endometriosis determined by laparoscopy documented in this encounter [facility] Work Phone: [phone] note* Diagnosis Endometriosis determined by laparoscopy- Primary Endometriosis determined by laparoscopy Post-op pain Other acute postoperative pain documented in this encounter [facility] Work Phone: Evaluation note* Diagnosis UTI symptoms documented in this encounter [facility] Work Phone: [phone] note* Diagnosis UTI symptoms documented in this encounter [facility] Work Phone: Evaluation note* Diagnosis Acute non-recurrent maxillary sinusitis- Primary Acute upper respiratory infection Acute upper respiratory infections of unspecified site documented in this encounter [facility] Work Phone: Evaluation note* Diagnosis Bronchitis- Primary Bronchitis, not specified as acute or chronic , unspecified gestational age ([facility]) documented in this encounter [facility] Work Phone: Evaluation note* Diagnosis Bronchitis Bronchitis, not specified as acute or chronic documented in this encounter [facility] Work Phone: Evaluation noteNo assessment information available [facility] Work Phone: Evaluation note* Diagnosis Anaphylaxis, initial encounter- [facility] Diagnosis Pelvic pain- Primary Allergic reaction, subsequent encounter- Primary Pelvic pain Pelvic pain documented in this encounter [facility] Work Phone: Evaluation note* Diagnosis Chronic urticaria- Primary Other specified urticaria Angioedema, initial encounter Swelling Edema [facility] Diagnosis OAB (overactive bladder)- Primary Urinary symptom or sign Interstitial cystitis Chronic interstitial cystitis Pelvic pain in female Unspecified symptom associated with female genital organs Pelvic floor dysfunction documented in this encounter [facility] Work Phone: History of Present illness NarrativePresents for evaluation of URI. Symptoms including cough, congestion, have been present for severaldays and refractory to OTC meds. No fever, chills, nausea, vomiting, abdominal pain, CP, or SOB. Noexacerbating factors. Patient does have asthma.[facility] Work Phone: History of Present illness NarrativePresents for evaluation of URI. Symptoms including cough, congestion, have been present for severaldays and refractory to OTC meds. No fever, chills, nausea, vomiting, abdominal pain, CP, or SOB. Noexacerbating factors. Patient does have asthma.[facility] Work Phone: History of Present illness NarrativePresents for evaluation fever, sore throat, nausea, body aches, and RAMÍREZ. Symptoms presented today and have been refractory to otc meds. No abdominal pain, diaphoresis, or other constitutional S/S. No other attempt at conservative management. No other complaints.[facility] Work Phone: History of Present illness Narrative* Patient presents today to discuss maintenance labs. Patient is requesting maintenance lab draw including thyroid and possible testosterone. Patient is concerned that her mother had thyroid and ovarian cancer. Patient reports persistent bloating and malaise but this has been attributed to IBS. * Patient also complains of dyspareunia. Patient states has been going on for some time and the pain is located in the left suprapubic area and is currently fairly constant. Pain outside of intercourseis dull which is intensified by intercourse. No reported bleeding or drainage. Patient does not currently have an HEAD OF ETHICS AND COMPLIANCE, most recent pelvic was over a year ago. [facility] Work Phone: History of Present illness NarrativePatient is a 26-year-old who is here for for an annual exam and concerns about left lower quadrant pain going on for several years. She reports she had a CT scan ordered by her PCP that showed a leftovarian cyst. Patient uses condoms for contraception. Patient denies any discharge or odor. Patientdenies any problems with her [address] Work Phone: History of Present illness NarrativePatient is a 26-year-old who is here for for an annual exam and concerns about left lower quadrant pain going on for several years. She reports she had a CT scan ordered by her PCP that showed a leftovarian cyst. Patient uses condoms for contraception. Patient denies any discharge or odor. Patientdenies any problems with her [facility] Work Phone: History of Present illness NarrativePatient is a 26-year-old who is here for for an annual exam and concerns about left lower quadrant pain going on for several years. She reports she had a CT scan ordered by her PCP that showed a leftovarian cyst. Patient uses condoms for contraception. Patient denies any discharge or odor. Patientdenies any problems with her [facility] History of Present illness Narrative* This is a 26-year-old female who I was asked to consult on for history of severe persistent asthma. Patient reports she has had problems with her breathing since middle school. She denies any admissions to the hospital for her breathing she reports many years since she was seen in the emergency room. She has had some urgent care visits. She reports to me that she does note that her breathing is poor but its been unchanged for years. When she has worsening of her breathing * Nurse practitioner has put her on steroids for short period of time she had denies any current phlegm production. 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 Her current bronchodilators are Symbicort 160/4.5 at 2 puffs twice a day and Xopenex inhaler that she uses anywhere from 1-4 times per day. * She has had an appendectomy. Family history mother had thyroid cancer and diabetes father had heartdisease and asthma and some arrhythmias. She has 1 sister with a history of asthma in the past. Patient herself was never smoker and she is currently engaged to be and her current boyfriend is not a smoker. She currently lives alone. She denies any problems with sleep at nighttime. -Pulmonary Medicine-[place] [address] DO Work Phone: History of Present illness Narrative* This is a 26-year-old female who I was asked to consult on for history of severe persistent asthma. Patient reports she has had problems with her breathing since middle school. She denies any admissions to the hospital for her breathing she reports many years since she was seen in the emergency room. She has had some urgent care visits. She reports to me that she does note that her breathing is poor but its been unchanged for years. When she has worsening of her breathing * Nurse practitioner has put her on steroids for short period of time she had denies any current phlegm production. 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 Her current bronchodilators are Symbicort 160/4.5 at 2 puffs twice a day and Xopenex inhaler that she uses anywhere from 1-4 times per day. * She has had an appendectomy. Family history mother had thyroid cancer and diabetes father had heartdisease and asthma and some arrhythmias. She has 1 sister with a history of asthma in the past. Patient herself was never smoker and she is currently engaged to be and her current boyfriend is not a smoker. She currently lives alone. She denies any problems with sleep at nighttime. [facility] Work Phone: History of Present illness Narrative* Patient was seen today on a 2-week follow-up visit for exacerbation of the her asthma. She is currently on Breo 200/25 daily, Xopenex inhaler 2 puffs 4 times daily as needed shortness of breath and she did start on Claritin in the morning which she reports is definitely helped with her nasal congestion and what appears to be allergy symptoms related to this problem. I reviewed with her also the re sults of her RAST testing which indicated that she is allergic to dust mites local grasses and weeds. She also has allergies to cats. Talked about obtaining zip covers that she can get from the [facility] to wrap her mattress and pillows in. Patient's peak flow was 380 L which is improved over the 320 from her last visit. Normal peak flow would be about 420. * She has not had her PFT done which is scheduled for 02/16/2022 and we will follow-up with her on 02/25/2022. * Patient denies any cough or sputum production and no wheezing. She denies any dyspnea with daily activities. -Pulmonary [facility] DO Work Phone: History of Present illness NarrativePatient presents in follow-up of treatment of anxiety, depression, and panic attacks. Patient states that initial effects of the Prozac were good but did wane after a week or 2. Patient however reports facial flushing and headaches nearly every day after starting the medication. Patient did not have a panic attack since starting the medicine. Patient noticed that it was easier to complete work and deal with adverse situations.[facility] Work Phone: History of Present illness NarrativePatient presents to revisit treating anxiety depression. So far, patient has had allergic reactionsto Prozac, Zoloft, and Wellbutrin. Patient was happy however with the effects of Wellbutrin while taking it. Patient broke out in full body hives after having taken it for a few weeks. Patient reports profound depression, anxiety, lack of jammie, lack of interest, social anxiety and general sadness.[facility] Work Phone: History of Present illness NarrativeKm is a 27-year-old who comes in for follow-up from an ER visit. She reports that over the last month she has been having difficulty with urination. She reports that she has to buckle over and press on her bladder as if she is bloated in order to be able to void. She reports that her PCP has called in 2 courses of antibiotics for UTI without any significant relief. She reports some low-grade pain that has been going on now for approximately a month. She is reports that this is the second episode she has had over the last 12 months of this discomfort and voiding difficulties. She was under the impression that when she was seen at urgent care and in the emergency room that a urine culture was sent. Patient also reports that she has discomfort with intercourse. She was here last year and felt that discomfort that she was experiencing at that time was related to an IUD which was removed last summer.[facility] Work Phone: Hospital Discharge instructions Additional Instructions Thank you for trusting us with your care today! Your labs and images were reassuring. Specifically no sign of , UTI, significant dehydration, electrolyte disturbance, kidney stone, pancreatitis or other intra- abdominal anatomic abnormalities Please take Zofran as needed for nausea vomiting control. Please take Tylenol (2 pills, 650 mg), ibuprofen (2 pills, 400 mg) every 6 hours as needed for pain and fever control. Please return to the emergency department if your symptoms change or worsen. Please follow with your primary care physician and/or your OB for further outpatient evaluation and management.[facility] Work Phone: Reason for referral (narrative)* Consultation (Routine) - Authorized Specialty Diagnoses / Procedures Referred By Contac t Referred To Contact Primary Care Procedures Follow Up In Primary Care - Established Sukh Pollock PA-C [address] [facility] [place] [address] Referral ID Status Reason Start Date Expiration Date V isits Requested Visits Authorized [id number] Authorized 03/04/2023 08/31/2023 1 1 [facility] Work Phone: Reason for referral (narrative)* Consultation (Routine) - Authorized Specialty Diagnoses / Procedures Referred By Contac t Referred To Contact Primary Care Procedures Follow Up In Primary Care - Established Sukh Pollock PA-C [address] [facility] [place] [address] Referral ID Status Reason Start Date Expiration Date V isits Requested Visits Authorized [id number] Authorized 04/28/2023 10/25/2023 1 1 [facility] Work Phone: Reotwa for referral (narrative)* Consultation (Routine) - Pending Review Specialty Diagnoses / Procedures Referred By Contac t Referred To Contact Physical Therapy Diagnoses Endometriosis determined by Jayden Canales MD [address] [facility], [address] [address] Referral ID Status Reason Start Date Expiration Date Visits Requested Visits Authorized [id number] Pending Review Specialty Services Required 12/22/2023 12/21/2024 1 1 [facility] Work Phone: Reason for referral (narrative)No reason for referral information availableWMarietta Osteopathic Clinic Work Phone: Reason for visit Narrative* Imaging (Routine) - Authorized Specialty Diagnoses / Procedures Referred By Contac t Referred To Contact Radiology Diagnoses UTI symptoms Procedures US renal complete Ayaka Doss, 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 [address] [facility] [place] [address] Phone: tel: fax: Referral ID Status Reason Start Date Expiration Date Visits Requested Visits Authorized [id number] Authorized Perform Procedure 08/30/2024 08/30/2025 1 1 [facility] Work Phone: Reason for visit Narrative* Imaging (Routine) - Authorized Specialty Diagnoses / Procedures Referred By Contac t Referred To Contact Radiology Diagnoses Bronchitis Procedures XR chest 2 views Ayaka Doss, 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 [address] [facility] [place] [address] Phone: tel: fax: Referral ID Status Reason Start Date Expiration Date Visits Requested Visits Authorized [id number] Authorized Perform Procedure 09/20/2024 09/20/2025 1 1 [facility] Work Phone: Summary Purpose Family History No Family History Records Found Mother Name Dates Details Family history of hypertensi on(V17.49, Z82.49) Status:Active Family history of depression (V17.0, Z81.8) Status:Active Family history of malignant neoplasm(V16.9, Z80.9) Status:Active Father Name Dates Details Family history of hypertensi on(V17.49, Z82.49) Status:Active Family history of depression (V17.0, Z81.8) Status:Active Family history of sleep apne a(V19.8, Z82.0) Status:Active Sister Name Dates Details Family history of asthma(V17 .5, Z82.5) Status:Active Brother Name Dates Details Family history of depression (V17.0, Z81.8) Status:Active Unknown Family Member Name Dates Details Family history of asthma: Si ster(V17.5, Z82.5) Status:Active Family history of hypertensi on: Mother, Father(V17.49, Z82.49) Status:Active Family history of depression : Mother, Father, Brother(V17.0, Z81.8) Status:Active Family history of sleep apne a: Father(V19.8, Z82.0) Status:Active Family history of malignant neoplasm: Mother(V16.9, Z80.9) Status:Active Unknown Family Member Name Dates Details Family history of malignant neoplasm: Mother(V16.9, Z80.9) Status:Active Family history of sleep apne a: Father(V19.8, Z82.0) Status:Active Family history of depression : Mother, Father, Brother(V17.0, Z81.8) Status:Active Family history of hypertensi on: Mother, Father(V17.49, Z82.49) Status:Active Family history of asthma: Si ster(V17.5, Z82.5) Status:Active Unknown Family Member Name Dates Details Family history of asthma: Si ster(V17.5, Z82.5) Status:Active Family history of hypertensi on: Mother, Father(V17.49, Z82.49) Status:Active Family history of depression : Mother, Father, Brother(V17.0, Z81.8) Status:Active Family history of sleep apne a: Father(V19.8, Z82.0) Status:Active Family history of malignant neoplasm: Mother(V16.9, Z80.9) Status:Active Unknown Family Member Name Dates Details Family history of malignant neoplasm: Mother(V16.9, Z80.9) Status:Active Family history of sleep apne a: Father(V19.8, Z82.0) Status:Active Family history of depression : Mother, Father, Brother(V17.0, Z81.8) Status:Active Family history of hypertensi on: Mother, Father(V17.49, Z82.49) Status:Active Family history of asthma: Si ster(V17.5, Z82.5) Status:Active Unknown Family Member Name Dates Details Family history of asthma: Si ster(V17.5, Z82.5) Status:Active Family history of hypertensi on: Mother, Father(V17.49, Z82.49) Status:Active Family history of depression : Mother, Father, Brother(V17.0, Z81.8) Status:Active Family history of sleep apne a: Father(V19.8, Z82.0) Status:Active Family history of malignant neoplasm: Mother(V16.9, Z80.9) Status:Active Unknown Family Member Name Dates Details Family history of asthma: Si ster(V17.5, Z82.5) Status:Active Family history of hypertensi on: Mother, Father(V17.49, Z82.49) Status:Active Family history of depression : Mother, Father, Brother(V17.0, Z81.8) Status:Active Family history of sleep apne a: Father(V19.8, Z82.0) Status:Active Family history of malignant neoplasm: Mother(V16.9, Z80.9) Status:Active Unknown Family Member Name Dates Details Family history of asthma: Si ster(V17.5, Z82.5) Status:Active Family history of hypertensi on: Mother, Father(V17.49, Z82.49) Status:Active Family history of depression : Mother, Father, Brother(V17.0, Z81.8) Status:Active Family history of sleep apne a: Father(V19.8, Z82.0) Status:Active Family history of malignant neoplasm: Mother(V16.9, Z80.9) Status:Active Unknown Family Member Name Dates Details Family history of hypertensi on: Mother, Father(V17.49, Z82.49) Status:Active Family history of depression : Mother, Father, Brother(V17.0, Z81.8) Status:Active Family history of sleep apne a: Father(V19.8, Z82.0) Status:Active Family history of malignant neoplasm: Mother(V16.9, Z80.9) Status:Active Family history of asthma: Fa ther, Sister(V17.5, Z82.5) Status:Active Family history of diabetes m ellitus: Mother(V18.0, Z83.3) Status:Active Cervical carcinoma: Mother Status:Active Family history of malignant neoplasm of thyroid: Mother(V16.8, Z80.8) Status:Active Family history of migraine h eadaches: Mother, Father(V17.2, Z82.0) Status:Active Irregular heart beat: Father Status:Active Unknown Family Member Name Dates Details Family history of hypertensi on: Mother, Father(V17.49, Z82.49) Status:Active Family history of depression : Mother, Father, Brother(V17.0, Z81.8) Status:Active Family history of sleep apne a: Father(V19.8, Z82.0) Status:Active Family history of malignant neoplasm: Mother(V16.9, Z80.9) Status:Active Family history of asthma: Fa ther, Sister(V17.5, Z82.5) Status:Active Family history of diabetes m ellitus: Mother(V18.0, Z83.3) Status:Active Cervical carcinoma: Mother Status:Active Family history of malignant neoplasm of thyroid: Mother(V16.8, Z80.8) Status:Active Family history of migraine h eadaches: Mother, Father(V17.2, Z82.0) Status:Active Irregular heart beat: Father Status:Active Unknown Family Member Name Dates Details Family history of hypertensi on: Mother, Father(V17.49, Z82.49) Status:Active Family history of depression : Mother, Father, Brother(V17.0, Z81.8) Status:Active Family history of sleep apne a: Father(V19.8, Z82.0) Status:Active Family history of malignant neoplasm: Mother(V16.9, Z80.9) Status:Active Family history of asthma: Fa ther, Sister(V17.5, Z82.5) Status:Active Family history of diabetes m ellitus: Mother(V18.0, Z83.3) Status:Active Cervical carcinoma: Mother Status:Active Family history of malignant neoplasm of thyroid: Mother(V16.8, Z80.8) Status:Active Family history of migraine h eadaches: Mother, Father(V17.2, Z82.0) Status:Active Irregular heart beat: Father Status:Active Unknown Family Member Name Dates Details Family history of hypertensi on: Mother, Father(V17.49, Z82.49) Status:Active Family history of depression : Mother, Father, Brother(V17.0, Z81.8) Status:Active Family history of sleep apne a: Father(V19.8, Z82.0) Status:Active Family history of malignant neoplasm: Mother(V16.9, Z80.9) Status:Active Family history of asthma: Fa ther, Sister(V17.5, Z82.5) Status:Active Family history of diabetes m ellitus: Mother(V18.0, Z83.3) Status:Active Cervical carcinoma: Mother Status:Active Family history of malignant neoplasm of thyroid: Mother(V16.8, Z80.8) Status:Active Family history of migraine h eadaches: Mother, Father(V17.2, Z82.0) Status:Active Irregular heart beat: Father Status:Active Unknown Family Member Name Dates Details Family history of hypertensi on: Mother, Father(V17.49, Z82.49) Status:Active Family history of depression : Mother, Father, Brother(V17.0, Z81.8) Status:Active Family history of sleep apne a: Father(V19.8, Z82.0) Status:Active Family history of malignant neoplasm: Mother(V16.9, Z80.9) Status:Active Family history of asthma: Fa ther, Sister(V17.5, Z82.5) Status:Active Family history of diabetes m ellitus: Mother(V18.0, Z83.3) Status:Active Cervical carcinoma: Mother Status:Active Family history of malignant neoplasm of thyroid: Mother(V16.8, Z80.8) Status:Active Family history of migraine h eadaches: Mother, Father(V17.2, Z82.0) Status:Active Irregular heart beat: Father Status:Active Unknown Family Member Name Dates Details Family history of hypertensi on: Mother, Father(V17.49, Z82.49) Status:Active Family history of depression : Mother, Father, Brother(V17.0, Z81.8) Status:Active Family history of sleep apne a: Father(V19.8, Z82.0) Status:Active Family history of malignant neoplasm: Mother(V16.9, Z80.9) Status:Active Family history of asthma: Fa ther, Sister(V17.5, Z82.5) Status:Active Family history of diabetes m ellitus: Mother(V18.0, Z83.3) Status:Active Cervical carcinoma: Mother Status:Active Family history of malignant neoplasm of thyroid: Mother(V16.8, Z80.8) Status:Active Family history of migraine h eadaches: Mother, Father(V17.2, Z82.0) Status:Active Irregular heart beat: Father Status:Active Unknown Family Member Name Dates Details Family history of hypertensi on: Mother, Father(V17.49, Z82.49) Status:Active Family history of depression : Mother, Father, Brother(V17.0, Z81.8) Status:Active Family history of sleep apne a: Father(V19.8, Z82.0) Status:Active Family history of malignant neoplasm: Mother(V16.9, Z80.9) Status:Active Family history of asthma: Fa ther, Sister(V17.5, Z82.5) Status:Active Family history of diabetes m ellitus: Mother(V18.0, Z83.3) Status:Active Cervical carcinoma: Mother Status:Active Family history of malignant neoplasm of thyroid: Mother(V16.8, Z80.8) Status:Active Family history of migraine h eadaches: Mother, Father(V17.2, Z82.0) Status:Active Irregular heart beat: Father Status:Active Unknown Family Member Name Dates Details Family history of hypertensi on: Mother, Father(V17.49, Z82.49) Status:Active Family history of depression : Mother, Father, Brother(V17.0, Z81.8) Status:Active Family history of sleep apne a: Father(V19.8, Z82.0) Status:Active Family history of malignant neoplasm: Mother(V16.9, Z80.9) Status:Active Family history of asthma: Fa ther, Sister(V17.5, Z82.5) Status:Active Family history of diabetes m ellitus: Mother(V18.0, Z83.3) Status:Active Cervical carcinoma: Mother Status:Active Family history of malignant neoplasm of thyroid: Mother(V16.8, Z80.8) Status:Active Family history of migraine h eadaches: Mother, Father(V17.2, Z82.0) Status:Active Irregular heart beat: Father Status:Active Unknown Family Member Name Dates Details Family history of hypertensi on: Mother, Father(V17.49, Z82.49) Status:Active Family history of depression : Mother, Father, Brother(V17.0, Z81.8) Status:Active Family history of sleep apne a: Father(V19.8, Z82.0) Status:Active Family history of malignant neoplasm: Mother(V16.9, Z80.9) Status:Active Family history of asthma: Fa ther, Sister(V17.5, Z82.5) Status:Active Family history of diabetes m ellitus: Mother(V18.0, Z83.3) Status:Active Cervical carcinoma: Mother Status:Active Family history of malignant neoplasm of thyroid: Mother(V16.8, Z80.8) Status:Active Family history of migraine h eadaches: Mother, Father(V17.2, Z82.0) Status:Active Irregular heart beat: Father Status:Active Unknown Family Member Name Dates Details Family history of hypertensi on: Mother, Father(V17.49, Z82.49) Status:Active Family history of depression : Mother, Father, Brother(V17.0, Z81.8) Status:Active Family history of sleep apne a: Father(V19.8, Z82.0) Status:Active Family history of malignant neoplasm: Mother(V16.9, Z80.9) Status:Active Family history of asthma: Fa ther, Sister(V17.5, Z82.5) Status:Active Family history of diabetes m ellitus: Mother(V18.0, Z83.3) Status:Active Cervical carcinoma: Mother Status:Active Family history of malignant neoplasm of thyroid: Mother(V16.8, Z80.8) Status:Active Family history of migraine h eadaches: Mother, Father(V17.2, Z82.0) Status:Active Irregular heart beat: Father Status:Active Unknown Family Member Name Dates Details Family history of hypertensi on: Mother, Father(V17.49, Z82.49) Status:Active Family history of depression : Mother, Father, Brother(V17.0, Z81.8) Status:Active Family history of sleep apne a: Father(V19.8, Z82.0) Status:Active Family history of malignant neoplasm: Mother(V16.9, Z80.9) Status:Active Family history of asthma: Fa ther, Sister(V17.5, Z82.5) Status:Active Family history of diabetes m ellitus: Mother(V18.0, Z83.3) Status:Active Cervical carcinoma: Mother Status:Active Family history of malignant neoplasm of thyroid: Mother(V16.8, Z80.8) Status:Active Family history of migraine h eadaches: Mother, Father(V17.2, Z82.0) Status:Active Irregular heart beat: Father Status:Active Unknown Family Member Name Dates Details Family history of hypertensi on: Mother, Father(V17.49, Z82.49) Status:Active Family history of depression : Mother, Father, Brother(V17.0, Z81.8) Status:Active Family history of sleep apne a: Father(V19.8, Z82.0) Status:Active Family history of malignant neoplasm: Mother(V16.9, Z80.9) Status:Active Family history of asthma: Fa ther, Sister(V17.5, Z82.5) Status:Active Family history of diabetes m ellitus: Mother(V18.0, Z83.3) Status:Active Cervical carcinoma: Mother Status:Active Family history of malignant neoplasm of thyroid: Mother(V16.8, Z80.8) Status:Active Family history of migraine h eadaches: Mother, Father(V17.2, Z82.0) Status:Active Irregular heart beat: Father Status:Active Unknown Family Member Name Dates Details Family history of hypertensi on: Mother, Father(V17.49, Z82.49) Status:Active Family history of depression : Mother, Father, Brother(V17.0, Z81.8) Status:Active Family history of sleep apne a: Father(V19.8, Z82.0) Status:Active Family history of malignant neoplasm: Mother(V16.9, Z80.9) Status:Active Family history of asthma: Fa ther, Sister(V17.5, Z82.5) Status:Active Family history of diabetes m ellitus: Mother(V18.0, Z83.3) Status:Active Cervical carcinoma: Mother Status:Active Family history of malignant neoplasm of thyroid: Mother(V16.8, Z80.8) Status:Active Family history of migraine h eadaches: Mother, Father(V17.2, Z82.0) Status:Active Irregular heart beat: Father Status:Active Unknown Family Member Name Dates Details Family history of hypertensi on: Mother, Father(V17.49, Z82.49) Status:Active Family history of depression : Mother, Father, Brother(V17.0, Z81.8) Status:Active Family history of sleep apne a: Father(V19.8, Z82.0) Status:Active Family history of malignant neoplasm: Mother(V16.9, Z80.9) Status:Active Family history of asthma: Fa ther, Sister(V17.5, Z82.5) Status:Active Family history of diabetes m ellitus: Mother(V18.0, Z83.3) Status:Active Cervical carcinoma: Mother Status:Active Family history of malignant neoplasm of thyroid: Mother(V16.8, Z80.8) Status:Active Family history of migraine h eadaches: Mother, Father(V17.2, Z82.0) Status:Active Irregular heart beat: Father Status:Active Unknown Family Member Name Dates Details Family history of hypertensi on: Mother, Father(V17.49, Z82.49) Status:Active Family history of depression : Mother, Father, Brother(V17.0, Z81.8) Status:Active Family history of sleep apne a: Father(V19.8, Z82.0) Status:Active Family history of malignant neoplasm: Mother(V16.9, Z80.9) Status:Active Family history of asthma: Fa ther, Sister(V17.5, Z82.5) Status:Active Family history of diabetes m ellitus: Mother(V18.0, Z83.3) Status:Active Cervical carcinoma: Mother Status:Active Family history of malignant neoplasm of thyroid: Mother(V16.8, Z80.8) Status:Active Family history of migraine h eadaches: Mother, Father(V17.2, Z82.0) Status:Active Irregular heart beat: Father Status:Active Unknown Family Member Name Dates Details Family history of hypertensi on: Mother, Father(V17.49, Z82.49) Status:Active Family history of depression : Mother, Father, Brother(V17.0, Z81.8) Status:Active Family history of sleep apne a: Father(V19.8, Z82.0) Status:Active Family history of malignant neoplasm: Mother(V16.9, Z80.9) Status:Active Family history of asthma: Fa ther, Sister(V17.5, Z82.5) Status:Active Family history of diabetes m ellitus: Mother(V18.0, Z83.3) Status:Active Cervical carcinoma: Mother Status:Active Family history of malignant neoplasm of thyroid: Mother(V16.8, Z80.8) Status:Active Family history of migraine h eadaches: Mother, Father(V17.2, Z82.0) Status:Active Irregular heart beat: Father Status:Active Unknown Family Member Name Dates Details Family history of hypertensi on: Mother, Father(V17.49, Z82.49) Status:Active Family history of depression : Mother, Father, Brother(V17.0, Z81.8) Status:Active Family history of sleep apne a: Father(V19.8, Z82.0) Status:Active Family history of malignant neoplasm: Mother(V16.9, Z80.9) Status:Active Family history of asthma: Fa ther, Sister(V17.5, Z82.5) Status:Active Family history of diabetes m ellitus: Mother(V18.0, Z83.3) Status:Active Cervical carcinoma: Mother Status:Active Family history of malignant neoplasm of thyroid: Mother(V16.8, Z80.8) Status:Active Family history of migraine h eadaches: Mother, Father(V17.2, Z82.0) Status:Active Irregular heart beat: Father Status:Active Unknown Family Member Name Dates Details Family history of hypertensi on: Mother, Father(V17.49, Z82.49) Status:Active Family history of depression : Mother, Father, Brother(V17.0, Z81.8) Status:Active Family history of sleep apne a: Father(V19.8, Z82.0) Status:Active Family history of malignant neoplasm: Mother(V16.9, Z80.9) Status:Active Family history of asthma: Fa ther, Sister(V17.5, Z82.5) Status:Active Family history of diabetes m ellitus: Mother(V18.0, Z83.3) Status:Active Cervical carcinoma: Mother Status:Active Family history of malignant neoplasm of thyroid: Mother(V16.8, Z80.8) Status:Active Family history of migraine h eadaches: Mother, Father(V17.2, Z82.0) Status:Active Irregular heart beat: Father Status:Active Unknown Family Member Name Dates Details Family history of hypertensi on: Mother, Father(V17.49, Z82.49) Status:Active Family history of depression : Mother, Father, Brother(V17.0, Z81.8) Status:Active Family history of sleep apne a: Father(V19.8, Z82.0) Status:Active Family history of malignant neoplasm: Mother(V16.9, Z80.9) Status:Active Family history of asthma: Fa ther, Sister(V17.5, Z82.5) Status:Active Irregular heart beat: Father Status:Active Family history of migraine h eadaches: Mother, Father(V17.2, Z82.0) Status:Active Family history of malignant neoplasm of thyroid: Mother(V16.8, Z80.8) Status:Active Cervical carcinoma: Mother Status:Active Family history of diabetes m ellitus: Mother(V18.0, Z83.3) Status:Active Unknown Family Member Name Dates Details Family history of hypertensi on: Mother, Father(V17.49, Z82.49) Status:Active Family history of depression : Mother, Father, Brother(V17.0, Z81.8) Status:Active Family history of sleep apne a: Father(V19.8, Z82.0) Status:Active Family history of malignant neoplasm: Mother(V16.9, Z80.9) Status:Active Family history of asthma: Fa ther, Sister(V17.5, Z82.5) Status:Active Family history of diabetes m ellitus: Mother(V18.0, Z83.3) Status:Active Cervical carcinoma: Mother Status:Active Family history of malignant neoplasm of thyroid: Mother(V16.8, Z80.8) Status:Active Family history of migraine h eadaches: Mother, Father(V17.2, Z82.0) Status:Active Irregular heart beat: Father Status:Active Unknown Family Member Name Dates Details Family history of hypertensi on: Mother, Father(V17.49, Z82.49) Status:Active Family history of depression : Mother, Father, Brother(V17.0, Z81.8) Status:Active Family history of sleep apne a: Father(V19.8, Z82.0) Status:Active Family history of malignant neoplasm: Mother(V16.9, Z80.9) Status:Active Family history of asthma: Fa ther, Sister(V17.5, Z82.5) Status:Active Family history of diabetes m ellitus: Mother(V18.0, Z83.3) Status:Active Cervical carcinoma: Mother Status:Active Family history of malignant neoplasm of thyroid: Mother(V16.8, Z80.8) Status:Active Family history of migraine h eadaches: Mother, Father(V17.2, Z82.0) Status:Active Irregular heart beat: Father Status:Active Unknown Family Member Name Dates Details Family history of hypertensi on: Mother, Father(V17.49, Z82.49) Status:Active Family history of depression : Mother, Father, Brother(V17.0, Z81.8) Status:Active Family history of sleep apne a: Father(V19.8, Z82.0) Status:Active Family history of malignant neoplasm: Mother(V16.9, Z80.9) Status:Active Family history of asthma: Fa ther, Sister(V17.5, Z82.5) Status:Active Family history of diabetes m ellitus: Mother(V18.0, Z83.3) Status:Active Cervical carcinoma: Mother Status:Active Family history of malignant neoplasm of thyroid: Mother(V16.8, Z80.8) Status:Active Family history of migraine h eadaches: Mother, Father(V17.2, Z82.0) Status:Active Irregular heart beat: Father Status:Active Unknown Family Member Name Dates Details Family history of hypertensi on: Mother, Father(V17.49, Z82.49) Status:Active Family history of depression : Mother, Father, Brother(V17.0, Z81.8) Status:Active Family history of sleep apne a: Father(V19.8, Z82.0) Status:Active Family history of malignant neoplasm: Mother(V16.9, Z80.9) Status:Active Family history of asthma: Fa ther, Sister(V17.5, Z82.5) Status:Active Family history of diabetes m ellitus: Mother(V18.0, Z83.3) Status:Active Cervical carcinoma: Mother Status:Active Family history of malignant neoplasm of thyroid: Mother(V16.8, Z80.8) Status:Active Family history of migraine h eadaches: Mother, Father(V17.2, Z82.0) Status:Active Irregular heart beat: Father Status:Active Unknown Family Member Name Dates Details Family history of hypertensi on: Mother, Father(V17.49, Z82.49) Status:Active Family history of depression : Mother, Father, Brother(V17.0, Z81.8) Status:Active Family history of sleep apne a: Father(V19.8, Z82.0) Status:Active Family history of malignant neoplasm: Mother(V16.9, Z80.9) Status:Active Family history of asthma: Fa ther, Sister(V17.5, Z82.5) Status:Active Family history of diabetes m ellitus: Mother(V18.0, Z83.3) Status:Active Cervical carcinoma: Mother Status:Active Family history of malignant neoplasm of thyroid: Mother(V16.8, Z80.8) Status:Active Family history of migraine h eadaches: Mother, Father(V17.2, Z82.0) Status:Active Irregular heart beat: Father Status:Active Unknown Family Member Name Dates Details Family history of hypertensi on: Mother, Father(V17.49, Z82.49) Status:Active Family history of depression : Mother, Father, Brother(V17.0, Z81.8) Status:Active Family history of sleep apne a: Father(V19.8, Z82.0) Status:Active Family history of malignant neoplasm: Mother(V16.9, Z80.9) Status:Active Family history of asthma: Fa ther, Sister(V17.5, Z82.5) Status:Active Family history of diabetes m ellitus: Mother(V18.0, Z83.3) Status:Active Cervical carcinoma: Mother Status:Active Family history of malignant neoplasm of thyroid: Mother(V16.8, Z80.8) Status:Active Family history of migraine h eadaches: Mother, Father(V17.2, Z82.0) Status:Active Irregular heart beat: Father Status:Active Unknown Family Member Name Dates Details Family history of hypertensi on: Mother, Father(V17.49, Z82.49) Status:Active Family history of depression : Mother, Father, Brother(V17.0, Z81.8) Status:Active Family history of sleep apne a: Father(V19.8, Z82.0) Status:Active Family history of malignant neoplasm: Mother(V16.9, Z80.9) Status:Active Family history of asthma: Fa ther, Sister(V17.5, Z82.5) Status:Active Family history of diabetes m ellitus: Mother(V18.0, Z83.3) Status:Active Cervical carcinoma: Mother Status:Active Family history of malignant neoplasm of thyroid: Mother(V16.8, Z80.8) Status:Active Family history of migraine h eadaches: Mother, Father(V17.2, Z82.0) Status:Active Irregular heart beat: Father Status:Active Unknown Family Member Name Dates Details Family history of hypertensi on: Mother, Father(V17.49, Z82.49) Status:Active Family history of depression : Mother, Father, Brother(V17.0, Z81.8) Status:Active Family history of sleep apne a: Father(V19.8, Z82.0) Status:Active Family history of malignant neoplasm: Mother(V16.9, Z80.9) Status:Active Family history of asthma: Fa ther, Sister(V17.5, Z82.5) Status:Active Family history of diabetes m ellitus: Mother(V18.0, Z83.3) Status:Active Cervical carcinoma: Mother Status:Active Family history of malignant neoplasm of thyroid: Mother(V16.8, Z80.8) Status:Active Family history of migraine h eadaches: Mother, Father(V17.2, Z82.0) Status:Active Irregular heart beat: Father Status:Active Relationship Condition Age at Onset Recorded Date/T alicia mother Malignant neoplasm Unknown Diabetes mellitus Unknown Hypertension Unknown father Hypertension Unknown Relationship Condition Age at Onset Recorded Date/T alicia mother Diabetes mellitus Unknown Hypertension Unknown Malignant neoplasm of thyroid gland Unkno wn Malignant neoplasm of cervix Unknown father Hypertension Unknown Advance Directives No Advanced Directives Records FoundLatest Code Status on File Code Status Date Activated Date Inactivated Comments Full Code 10/14/2023 7:36 AM Question Answer Comments Plan of Care: Code Status Discussion Completed Decision Maker: Patient Latest Code Status on File Code Status Date Activated Date Inactivated Comments Full Code 10/14/2023 7:36 AM Question Answer Comments Plan of Care: Code Status Discussion Completed Decision Maker: Patient Date Activated Date Inactivated Comments 10/14/2023 7:36 AM Question Answer Comments Plan of Care: Code Status Discussion Completed Decision Maker: Patient Date Activated Date Inactivated Comments 10/14/2023 7:36 AM Question Answer Comments Plan of Care: Code Status Discussion Completed Decision Maker: Patient Advance Directive Response Recorded Date/ Time Living Will No November 05, 2024 3:42pm Do you have a Healthcare Power of Reactor Operator? No November 05, 2024 3:42pm Chief Complaint * Patient here today to be seen for sinus drainage, cough, RAMÍREZ and left ear discomfort x 2 days. * Patient denies taking any OTC medications. * Patient does need refills on her inhalers. * Patient here today to be seen for sinus drainage, cough, RAMÍREZ and left ear discomfort x 2 days. * Patient denies taking any OTC medications. * Patient does need refills on her inhalers. * Patient here today to be seen for nausea, vomiting, body aches, chills and increased temperature (100.6) X last night. * Patient has not been able to hold anything down took a Zofran that helped for a few hours but only had one tablet. * Patient here today to discuss maintenance labs and would like hormone levels checked. * Patent has abnormal menses, abdomen bloating, fatigue and has been off control x 1 year d/t side effects. Patient is concerned as mother had thyroid & ovarian cancer. * Patent also having left lower abdomen discomfort with intercourse. New patient here today with concerns of pain with intercourse. She states since having her IUD placed she has left lower abdomen pain during intercourse for 2 years. She had had IUD removed and stillhas pain. Did have CT scan last week that showed a cyst. Last pap 3 years ago. LMP:01/09/2022.New patient here today with concerns of pain with intercourse. She states since having her IUD placed she has left lower abdomen pain during intercourse for 2 years. She had had IUD removed and stillhas pain. Did have CT scan last week that showed a cyst. Last pap 3 years ago. LMP:01/09/2022.New patient here today with concerns of pain with intercourse. She states since having her IUD placed she has left lower abdomen pain during intercourse for 2 years. She had had IUD removed and still has pain. Did have CT scan last week that showed a cyst. Last pap 3 years ago. LMP:01/09/2022.* KM HUNT is here for a 2 week follow-up. * Reason for Visit: Exacerbation of Asthma; F/U Labs. * Appointment requested by: Ravin Pollock. * KM HUNT is here for a 2 week follow-up. * Reason for Visit: Exacerbation of Asthma; F/U Labs. * Appointment requested by: Ravin Pollock. Patient here today to discuss anxiety. Patient states in the last month has had 3 panic attacks.Patient here today for follow up 1 month and offers no complaints. Patient has not taken the Trazodone, waiting to take it on a weekend that is free. Patient states she has not had to take Alprazolam.* Patient here today to discuss medications for anxiety and depression. * Currently not taking any medications x July and wants to restart. Patient here today for ER follow up. She is having abdominal discomfort all the time almost a burning bloating sensation. She notes she has IBS-c. She has nausea and vomiting associated with bowel movements. She has pain with intercourse. LMP 11/09/22Patient here today for ER follow up. She is having abdominal discomfort all the time almost a burning bloating sensation. She notes she has IBS-c. She has nausea and vomiting associated with bowel movements. She has pain with intercourse. LMP 11/09/22Patient here today for ER follow up. She is having abdominal discomfort all the time almost a burning bloating sensation. She notes she has IBS-c. She has nausea and vomiting associated with bowel mov ements. She has pain with intercourse. LMP 11/09/22* Patient presents with pelvic pain, trouble emptying bladder. * PAP 01/14/2022 WNL; LMP 12/08/2022; G0 * [employer] Patient here today for annual exam. She has no concerns. LMP: 02/08/2023. Last pap 01/14/2022 NIL.Patient here today for ER follow up. She is having abdominal discomfort all the time almost a burning bloating sensation. She notes she has IBS-c. She has nausea and vomiting associated with bowel movements. She has pain with intercourse. LMP 11/09/22 Reason for Referral Specialty Diagnoses / Procedures Referred By Contac t Referred To Contact Radiology Diagnoses Bilious vomiting with nausea Procedures US gallbladder Sukh Pollock PA-C [address] [facility] [place] [address] Referral ID Status Reason Start Date Expiration Date Visits Requested Visits Authorized [id number] Authorized Perform Procedure 01/26/2023 07/25/2023 1 1 Specialty Diagnoses / Procedures Referred By Contac t Referred To Contact Radiology Diagnoses Acute bilateral low back pain, unspecified whether sciatica present Procedures XR lumbar spine complete 4+ views Sukh Pollock PA-C [address] [facility] [place] [address] Referral ID Status Reason Start Date Expiration Date Visits Requested Visits Authorized [id number] Authorized Perform Procedure 01/26/2023 07/25/2023 1 1 Specialty Diagnoses / Procedures Referred By Contac t Referred To Contact Primary Care Procedures Follow Up In Primary Care Sukh Pollock PA-C [address] [facility] [place] [address] Referral ID Status Reason Start Date Expiration Date V isits Requested Visits Authorized [id number] Authorized 01/26/2023 07/25/2023 1 1 Specialty Diagnoses / Procedures Referred By Contac t Referred To Contact Psychology Diagnoses Anxiety and depression Panic attack Procedures LA OFFICE/OUTPATIENT NEW HIGH MDM 60-74 MINUTES Sukh Pollock PA-C [address] [facility] [place] [address] Referral ID Status Reason Start Date Expiration Date Visits Requested Visits Authorized [id number] Authorized Specialty Services Required 01/26/2023 07/25/2023 1 1 Specialty Diagnoses / Procedures Referred By Robyn soto Referred To Contact Diagnoses Allergic contact der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 myers, 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 [address] [place] [address] Referral ID Status Reason Start Date Expiration Date V isits Requested Visits Authorized [id number] Pending Review 05/02/2024 05/02/2025 1 1 Chief Complaint and Reason for Visit Chief Complaint Admit Date abdominal November 05, 2024 3:15 pm Chief Complaint Admit Date abdominal November 05, 2024 3:15 pm Pre new ob, confirm preg, vitals January 122024 8:09am Chief Complaint Admit Date abdominal November 05, 2024 3:15 pm Pre new ob, confirm preg, vitals January 122024 8:09am *EST* NOB LMP 11/24, ERIN 08/31January 26, 2025 1:31pm Reason for Visit Admit Date Amenorrhea January 12, 2025 8:09 am Acid reflux January 26, 2025 1:31 pm Amenorrhea January 26, 2025 1:31 pm Anxiety January 26, 2025 1:31 pm Depression January 26, 2025 1:31 pm Endometriosis January 26, 2025 1:31 pm IBS (irritable bowel syndrome) December 1:31pm Infertility January 26, 2025 1:31 pm January 26, 2025 1:31 pm Supervision of high-risk January 26, 2025 1:31pm Reason for Visit Admit Date Amenorrhea January 12, 2025 8:09 am Acid reflux January 26, 2025 1:31 pm Anxiety January 26, 2025 1:31 pm Depression January 26, 2025 1:31 pm Endometriosis January 26, 2025 1:31 pm IBS (irritable bowel syndrome) December 1:31pm Infertility January 26, 2025 1:31 pm January 26, 2025 1:31 pm Supervision of high-risk January 26, 2025 1:31pm Chief Complaint Admit Date abdominal November 05, 2024 3:15 pm Pre new ob, confirm preg, vitals January 122024 8:09am *EST* NOB LMP 11/24, ERIN 08/31January 26, 2025 1:31pm PELVIC FLOOR- DYSPAREUNIA. RX SCANNED. Ilana yves 2024 8:29am 13wk OB February 22, 2025 9:19 am Reason for Visit Admit Date Amenorrhea January 12, 2025 8:09 am Acid reflux January 26, 2025 1:31 pm Anxiety January 26, 2025 1:31 pm Depression January 26, 2025 1:31 pm January 26, 2025 1:31 pm Supervision of high-risk January 26, 2025 1:31pm Endometriosis January 26, 2025 1:31 pm IBS (irritable bowel syndrome) December 1:31pm Infertility January 26, 2025 1:31 pm Acid reflux February 22, 2025 9:19 am Anxiety February 22, 2025 9:19 am Depression February 22, 2025 9:19 am February 22, 2025 9:19 am Supervision of high-risk February 22, 2025 9:19am Chief Complaint Admit Date Pre new ob, confirm preg, vitals January 122024 8:09am *EST* NOB LMP 11/24, ERIN 08/31January 26, 2025 1:31pm 13wk OB February 22, 2025 9:19 am PELVIC FLOOR- DYSPAREUNIA. RX SCANNED. Stephan uglisa 2024 8:00am 17wk ob March 19, 2025 3: 03pm Reason for Visit Admit Date Amenorrhea January 12, 2025 8:09 am Acid reflux January 26, 2025 1:31 pm Anxiety January 26, 2025 1:31 pm Depression January 26, 2025 1:31 pm January 26, 2025 1:31 pm Supervision of high-risk January 26, 2025 1:31pm Endometriosis January 26, 2025 1:31 pm IBS (irritable bowel syndrome) December 1:31pm Infertility January 26, 2025 1:31 pm Acid reflux February 22, 2025 9:19 am Anxiety February 22, 2025 9:19 am Depression February 22, 2025 9:19 am Pelvic floor dysfunction in female February 22, 2025 9:19am February 22, 2025 9:19 am Supervision of high-risk February 22, 2025 9:19am Acid reflux March 19, 2025 3: 03pm Anxiety March 19, 2025 3: 03pm Depression March 19, 2025 3: 03pm Pelvic floor dysfunction in female Augus 2024 3:03pm March 19, 2025 3: 03pm Supervision of high-risk Augus 2024 3:03pm Chief Complaint Admit Date Pre new ob, confirm preg, vitals January 122024 8:09am *EST* NOB LMP 11/24, ERIN 08/31January 26, 2025 1:31pm 13wk OB February 22, 2025 9:19 am PELVIC FLOOR- DYSPAREUNIA. RX SCANNED. A ugust 2024 8:00am 17wk ob March 19, 2025 3: 03pm 21 WK OB April 18, 2025 8:19am Reason for Visit Admit Date Amenorrhea January 12, 2025 8:09 am Acid reflux January 26, 2025 1:31 pm Anxiety January 26, 2025 1:31 pm Depression January 26, 2025 1:31 pm January 26, 2025 1:31 pm Supervision of high-risk January 26, 2025 1:31pm Endometriosis January 26, 2025 1:31 pm IBS (irritable bowel syndrome) December 1:31pm Infertility January 26, 2025 1:31 pm Acid reflux February 22, 2025 9:19 am Anxiety February 22, 2025 9:19 am Depression February 22, 2025 9:19 am Pelvic floor dysfunction in female February 22, 2025 9:19am February 22, 2025 9:19 am Supervision of high-risk February 22, 2025 9:19am Acid reflux March 19, 2025 3: 03pm Anxiety March 19, 2025 3: 03pm Depression March 19, 2025 3: 03pm Pelvic floor dysfunction in female Augus 2024 3:03pm March 19, 2025 3: 03pm Supervision of high-risk Augus 2024 3:03pm Acid reflux April 18, 2025 8:19am Anxiety April 18, 2025 8:19am Depression April 18, 2025 8:19am Pelvic floor dysfunction in female Aubrey [facility] 2024 8:19am April 18, 2025 8:19am Supervision of high-risk Aubrey jimenez 2024 8:19am Additional Source Comments INFORMATION SOURCE (unrecogn ized section and content) DATE CREATED AUTHOR 04/15/2019 [facility] DATE CREATED AUTHOR AUTHOR'S ORGANIZ ATION 02/04/2023 [facility] DATE CREATED AUTHOR AUTHOR'S ORGANIZ ATION 02/16/2023 [facility] DATE CREATED AUTHOR AUTHOR'S ORGANIZ ATION 02/16/2023 [employer] DATE CREATED AUTHOR AUTHOR'S ORGANIZ ATION 11/28/2024 [facility] DATE CREATED AUTHOR AUTHOR'S ORGANIZ ATION 12/28/2024 [facility] DATE CREATED AUTHOR AUTHOR'S ORGANIZ ATION 12/31/2024 [facility] DATE CREATED AUTHOR AUTHOR'S ORGANIZ ATION 12/31/2024 [facility] DATE CREATED AUTHOR AUTHOR'S ORGANIZ ATION 01/07/2025 [facility] DATE CREATED AUTHOR AUTHOR'S ORGANIZ ATION 01/09/2025 [facility] DATE CREATED AUTHOR AUTHOR'S ORGANIZ ATION 04/09/2025 [facility] DATE CREATED AUTHOR AUTHOR'S ORGANIZ ATION 04/20/2025 [facility] DATE CREATED AUTHOR AUTHOR'S ORGANIZ ATION 05/12/2025 [facility] <item><item> Privacy Markings (unrecogniz ed section and content) Section Author: Mallory Myers PROHIBITION ON REDISCLOSURE OF CONFIDENTIAL INFORMATION This notice accompanies a disclosure of information concerning a client made to you with the consent of such client. Section Author: Mallory Myers PROHIBITION ON REDISCLOSURE OF CONFIDENTIAL INFORMATION This notice accompanies a disclosure of information concerning a client made to you with the consent of such client. Reason for Visit (unrecogniz ed section and content) Reason Comments Sore Throat Earache Reason Comments Abdominal Pain Left lower abdomen p ain continues and radiates to the lower back. Anxiety Anxiety discuss opti ons like referrals. Reason Comments Follow-up FU 1 mos , patient s tates doing well on the Remeron. Tailbone Pain Tailbone discomfort falling on a metal object x 4 days ago. Patient coughed yesterday and felt a popping sensation. Specialty Diagnoses / Procedures Referred By Robyn soto Referred To Contact Primary Care Procedures Follow Up In Primary Care Sukh Pollock PA-C [address] [facility] [place] [address] Referral ID Status Reason Start Date Expiration Date V isits Requested Visits Authorized [id number] Authorized 01/26/2023 07/25/2023 1 1 Reason Comments Anxiety Patient would like t o discuss anxiety options, states wean herself off all medications to see if symptoms would improve. Patient states needs to go back on medication but would like something that will not feel her groggy at work. Reason Comments Pelvic Pain Patient c/o lower pe lvic pain for years. Patient states its worse 8- 10 days prior to her period and during her period. LMP: 09/04/23. Specialty Diagnoses / Procedures Referred By Robyn t Referred To Contact Diagnoses Chronic pelvic pain in female Chronic pelvic pain in female [R10.2, G89.29] Procedures LA LAPS ABD PRTM&OMENTUM DX W/WO SPEC BR/WA SPX Diagnostic Laparoscopy Jameel Hernandez MD [address] [facility], [address] [place] [address] [facility] [address] [place] [address] Referral ID Status Reason Start Date Expiration Date Visits Re quested Visits Authorized [id number] 1 1 Reason Comments Post-op Visit Patient is here for her post op visit and has some questions regarding her bladder issues. Reason Comments Follow-up Endometriosis follow up Reason Comments Rash Rash on abdomen/hips . OTC antihistamines not improving sx Specialty Diagnoses / Procedures Referred By Robyn t Referred To Contact Diagnoses Allergic contact der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 Evens Palacios, 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 [address] [place] [address] Referral ID Status Reason Start Date Expiration Date V isits Requested Visits Authorized [id number] Pending Review 05/02/2024 05/02/2025 1 1 Specialty Diagnoses / Procedures Referred By Robyn t Referred To Contact Diagnoses Endometriosis determined by laparoscopy Endometriosis determined by laparoscopy [N80.9] Procedures LA LAPS ABD PRTM&OMENTUM DX W/WO SPEC BR/WA SPX ROBOT ASSIST ENDOMETRIOSIS EXCISION/ CHROMOPERTUBATION/ CYSTOSCOPY/ POSSIBLE BLADDER RESECTION/ ANY INDICATED PROCEDURE Jayden Taylor MD [address] [facility], [address] [place] [address] [facility] [address] [place] [address] Referral ID Status Reason Start Date Expiration Date Visits Re quested Visits Authorized [id number] 1 1 Reason Comments UTI sx Off and on for a mon th Reason Comments URI Sinus drainage, coug dyan, ear pain x 3 days Reason Comments Sick Visit Reason Comments Allergic Reaction Reason Comments New Patient [facility] Specialty Diagnoses / Procedures Referred By Robyn t Referred To Contact Allergy & Immunology Diagnoses Anaphylaxis, initial encounter Starr Torrez MD [address] [place] [address] Phone: tel: fax: Referral ID Status Reason Start Date Expiration Date V isits Requested Visits Authorized [id number] New Request 11/24/2024 12/19/2025 1 1 Reason Comments bladder pain Pt has had severe bl adder pain and was diagnosed with endometriosis. She has frequent urination and nocturia 2-3. She has painful intercourse as well. She has a hard time holding her urine. She was supposed to get Botox but she just found out that she is . She had surgery in April for endo and she believes everything is worse since then. Care Teams (unrecognized sec tion and content) Wax Engraver Relationship Specialty Start Date End Date Sukh Pollock PA-C [address] [facility] [place] [address] PCP - General 06/24/21 Sukh Pollock PA-C [address] [facility] [place] [address] PCP - [employer] [facility] PCP 08/02/21 Sukh Pollock PA-C [address] [facility] [place] [address] PCP - O ACO PCP 08/02/21 Wax Engraver Relationship Specialty Start Date End Date Sukh Pollock PA-C 53 [facility] [place] [address] PCP - General 06/24/21 Sukh Pollock PA-C [address] [place] [address] PCP - [employer] [facility] PCP 08/02/21 Sukh Pollock PA-C 53 [facility] [place] [address] PCP - M[employer] ACO PCP 08/02/21 Sukh Pollock PA-C 53 [facility] [place] [address] PCP - [facility] Medicaid PCP 10/31/22 Wax Engraver Relationship Specialty Start Date End Date Sukh Pollock PA-C [address] [facility] [place] [address] PCP - General 06/24/21 Sukh Pollock PA-C [address] [facility] [place] [address] PCP - [employer] PCP 08/02/21 Sukh Pollock PA-C [address] [facility] [place] [address] PCP - MMO ACO PCP 08/02/21 Sukh Pollock PA-C [address] [facility] [place] [address] PCP - [facility] Medicaid PCP 10/31/22 Wax Engraver Relationship Specialty Start Date End Date Sukh Pollock PA-C [address] [facility] [place] [address] PCP - General 06/24/21 Sukh Pollock PA-C [address] [facility] [place] [address] PCP - [employer] PCP 08/02/21 Wax Engraver Relationship Specialty Start Date End Date Sukh Pollock PA-C 53 [facility] [place] [address] PCP - General 06/24/21 Sukh Pollock PA-C [address] [place] [address], [address] [address] PCP - [employer] [facility]CO PCP 05/02/23 Wax Engraver Relationship Specialty Start Date End Date Sukh Pollock PA-C 53 [facility] [place] [address] PCP - General 06/24/21 Sukh Pollock PA-C [address] [place] [address], [address] [address] PCP - MMO ACO PCP 05/02/23 Wax Engraver Relationship Specialty Start Date End Date Sukh Pollock PA-C [address] [facility] [place] [address] PCP - General 06/24/21 Sukh Pollock PA-C [address] [place] [address], [address] [address] PCP - MMO ACO PCP 05/02/23 Wax Engraver Relationship Specialty Start Date End Date Sukh Pollock PA-C 53 [facility] [place] [address] PCP - General 06/24/21 Sukh Pollock PA-C [address] [facility], [address] [address] PCP - MMO ACO PCP 05/02/23 Wax Engraver Relationship Specialty Start Date End Date Sukh Pollock PA-C [address] [facility], [address] [address] PCP - MMO ACO PCP 05/02/23 Ayaka Doss, 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 [address] [facility] [place] [address] PCP - General Family Medicine 04/27/24 Wax Engraver Relationship Specialty Start Date End Date Ayaka Doss 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 [address] [facility] [place] [address] PCP - General Family Medicine 04/27/24 Wax Engraver Relationship Specialty Start Date End Date Sukh Pollock PA-C [address] [facility], [address] [address] PCP - MMO ACO PCP 05/02/23 Ayaka Doss, 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 [address] [facility] [place] [address] PCP - General Family Medicine 04/27/24 Wax Engraver Relationship Specialty Start Date End Date Sukh Pollock PA-C [address] [facility], [address] [address] PCP - MMO ACO PCP 05/02/23 Ayaka Doss, 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 53 [facility] [place] [address] PCP - General Family Medicine 04/27/24 Wax Engraver Relationship Specialty Start Date End Date Ayaka Doss 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 53 [facility] [place] [address] PCP - General Family Medicine 04/27/24 Ayaka Doss 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 53 [facility] [place] [address] PCP - MMO ACO PCP 06/02/24 Wax Engraver Relationship Specialty Start Date End Date Ayaka Doss 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 53 [facility] [place] [address] PCP - General Family Medicine 04/27/24 Ayaka Doss 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 53 [facility] [place] [address] PCP - MMO ACO PCP 06/02/24 Wax Engraver Relationship Specialty Start Date End Date Ayaka Doss 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 53 [facility] [place] [address] PCP - General Family Medicine 04/27/24 Ayaka Doss, 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 53 [facility] [place] [address] PCP - MMO ACO PCP 06/02/24 Wax Engraver Relationship Specialty Start Date End Date Ayaka Doss 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 53 [facility] [place] [address] PCP - General Family Medicine 04/27/24 Ayaka Doss, 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 53 [facility] [place] [address] PCP - MMO ACO PCP 06/02/24 Wax Engraver Relationship Specialty Start Date End Date Ayaka Doss 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 53 [facility] [place] [address] PCP - General Family Medicine 04/27/24 Ayaka Doss, 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 [address] [facility] [place] [address] PCP - MMO ACO PCP 06/02/24 Team Status: Active Member Role Status Dates Ayaka Doss NP-C Primary Care Provider Active Team Status: Inactive Member Role Status Dates Dr. Daniel Schneider , DO Emergency Provider Active Start: November 05, 2024 End: November 05, 2024 Ayaka Doss NP-C Primary Care Provider Active Start: November 05, 2024 End: November 05, 2024 Wax Engraver Relationship Specialty Start Date End Date Ayaka Doss FNP [address] [facility] [place] [address] PCP - General Family Medicine 11/23/24 Wax Engraver Relationship Specialty Start Date End Date Ayaka Doss, 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 [address] [facility] [place] [address] PCP - General Family Medicine 04/27/24 Ayaka Doss, 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 [address] [facility], [address] [place] [address] PCP - MMO ACO PCP 06/02/24 Wax Engraver Relationship Specialty Start Date End Date Ayaka Doss FNP 53 [facility] [place] [address] PCP - General Family Medicine 11/23/24 Wax Engraver Relationship Specialty Start Date End Date Ayaka Doss, 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 PCP - General Family Medicine 04/27/24 Ayaka Doss, 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 [address] [facility], [address] [place] [address] PCP - MMO ACO PCP 06/02/24 Team Status: Inactive Member Role Status Dates Dr. Daniel Schneider DO Attending Provider Active Start: November 05, 2024 End: November 05, 2024 Dr. Daniel Schneider DO Emergency Provider Active Start: November 05, 2024 End: November 05, 2024 CARLA Plascencia Primary Care Provider Active Start: November 05, 2024 End: November 05, 2024 Team Status: Inactive Member Role Status Dates CARLA Plascencia Primary Care Provider Active Start: January 12, 2025 End: January 12, 2025 CARLA Plascencia Referring Provider Active St art: January 12, 2025 End: January 12, 2025 Dr. Kirsten Aragon , Attending Provider Activ e Start: January 12, 2025 End: January 12, 2025 Team Status: Active Member Role/Relationship Status Dates CARLA Plascencia Primary Care Provider Active Team Status: Inactive Member Role/Relationship Status Dates Dr. Daniel Schneider DO Attending Provider Active Start: November 05, 2024 End: November 05, 2024 Dr. Daniel Schneider DO Emergency Provider Active Start: November 05, 2024 End: November 05, 2024 Ayaka Doss NP-C Primary Care Provider Active Start: November 05, 2024 End: November 05, 2024 Team Status: Inactive Member Role/Relationship Status Dates Ayaka Doss CONSTRUCTION CARPENTER-C Primary Care Provider Active Start: January 12, 2025 End: January 12, 2025 Ayaka Doss NP-C Referring Provider Active St art: January 12, 2025 End: January 12, 2025 Dr. Kirsten Aragon DO Attending Provider Activ e Start: January 12, 2025 End: January 12, 2025 Team Status: Inactive Member Role/Relationship Status Dates Ayaka Doss NP-C Primary Care Provider Active Start: January 26, 2025 End: January 26, 2025 CARLA Plascencia Referring Provider Active St art: January 26, 2025 End: January 26, 2025 Apple Browne CNM Attending Provider Active Start: January 26, 2025 End: January 26, 2025 Team Status: Active Member Role/Relationship Status Dates Ayaka Doss NP-C Primary Care Provider Active Start: January 26, 2025 Apple Browne CNM Attending Provider Active Start: January 26, 2025 Apple Browne CNM Referring Provider Active Start: January 26, 2025 Team Status: Inactive Member Role/Relationship Status Dates Ayaka Doss NP-C Primary Care Provider Active Start: January 26, 2025 End: January 26, 2025 Apple Browne CNM Attending Provider Active Start: January 26, 2025 End: January 26, 2025 Apple Browne CNM Referring Provider Active Start: January 26, 2025 End: January 26, 2025 Team Status: Active Member Role/Relationship Status Dates Ayaka Doss NP-C Primary Care Provider Active Start: February 20, 2025 Apple Browne CNM Attending Provider Active Start: February 20, 2025 Apple Browne CNM Referring Provider Active Start: February 20, 2025 Team Status: Inactive Member Role/Relationship Status Dates Ayaka Doss CONSTRUCTION CARPENTER-C Primary Care Provider Active Start: February 22, 2025 End: February 22, 2025 Ayaka Doss NP-C Referring Provider Active St art: February 22, 2025 End: February 22, 2025 Dr. Marcie Santana MD Attending Provider Active Start: February 22, 2025 End: February 22, 2025 Team Status: Inactive Member Role/Relationship Status Dates yAaka Doss CONSTRUCTION CARPENTER-C Primary Care Provider Active Start: January 12, 2025 End: January 12, 2025 Ayaka Doss CONSTRUCTION CARPENTER-C Referring Provider Active St art: January 12, 2025 End: January 12, 2025 Dr. Kirsten Aragon DO Attending Provider Activ e Start: January 12, 2025 End: January 12, 2025 Team Status: Inactive Member Role/Relationship Status Dates Ayaka Doss CONSTRUCTION CARPENTER-C Primary Care Provider Active Start: January 26, 2025 End: January 26, 2025 Ayaka Doss CONSTRUCTION CARPENTER-C Referring Provider Active St art: January 26, 2025 End: January 26, 2025 Apple Browne CNM Attending Provider Active Start: January 26, 2025 End: January 26, 2025 Team Status: Inactive Member Role/Relationship Status Dates Ayaka Doss CONSTRUCTION CARPENTER-C Primary Care Provider Active Start: January 26, 2025 End: January 26, 2025 Apple Browne CNM Attending Provider Active Start: January 26, 2025 End: January 26, 2025 Apple Browne CNM Referring Provider Active Start: January 26, 2025 End: January 26, 2025 Team Status: Inactive Member Role/Relationship Status Dates Ayaka Doss CONSTRUCTION CARPENTER-C Primary Care Provider Active Start: February 22, 2025 End: February 22, 2025 Ayaka Doss NP-C Referring Provider Active St art: February 22, 2025 End: February 22, 2025 Dr. Marcie Santana MD Attending Provider Active Start: February 22, 2025 End: February 22, 2025 Team Status: Active Member Role/Relationship Status Dates Ayaka Doss CONSTRUCTION CARPENTER-C Primary Care Provider Active Start: March 13, 2025 Apple Browne CNM Attending Provider Active Start: March 13, 2025 Apple Browne CNM Referring Provider Active Start: March 13, 2025 Team Status: Inactive Member Role/Relationship Status Dates Ayaka Doss CONSTRUCTION CARPENTER-C Primary Care Provider Active Start: March 19, 2025 End: March 19, 2025 CARLA Plascencia Referring Provider Active St art: March 19, 2025 End: March 19, 2025 Kelsey Harrell CNM Attending Provider Active S tart: March 19, 2025 End: March 19, 2025 Team Status: Inactive Member Role/Relationship Status Dates BING PlascenciaC Primary Care Provider Active Start: March 19, 2025 End: March 19, 2025 Kelsey Harrell CNM Attending Provider Active S tart: March 19, 2025 End: March 19, 2025 Kelsey Harrell CNM Referring Provider Active S tart: March 19, 2025 End: March 19, 2025 Team Status: Active Member Role/Relationship Status Dates CARLA Plascencia Primary care physician Active Team Status: Inactive Member Role/Relationship Status Dates CARLA Plascencia Primary care physician Active Start: January 12, 2025 End: January 12, 2025 CARLA Plascencia Referring Provider Active St art: January 12, 2025 End: January 12, 2025 Dr. Kirsten Aragon DO Attending physician Acti ve Start: January 12, 2025 End: January 12, 2025 Team Status: Inactive Member Role/Relationship Status Dates CARLA Plascencia Primary care physician Active Start: January 26, 2025 End: January 26, 2025 CARLA Plascencia Referring Provider Active St art: January 26, 2025 End: January 26, 2025 Apple Browne CNM Attending physician Active Start: January 26, 2025 End: January 26, 2025 Team Status: Inactive Member Role/Relationship Status Dates CARLA Plascencia Primary care physician Active Start: January 26, 2025 End: January 26, 2025 Apple Browne CNM Attending physician Active Start: January 26, 2025 End: January 26, 2025 Apple Browne CNM Referring Provider Active Start: January 26, 2025 End: January 26, 2025 Team Status: Inactive Member Role/Relationship Status Dates CARLA Plascencia Primary care physician Active Start: February 22, 2025 End: February 22, 2025 CARLA Plascencia Referring Provider Active St art: February 22, 2025 End: February 22, 2025 Dr. Marcie Santana MD Attending physician Active Start: February 22, 2025 End: February 22, 2025 Team Status: Active Member Role/Relationship Status Dates CARLA Plascencia Primary care physician Active Start: March 13, 2025 Apple Browne CNM Attending physician Active Start: March 13, 2025 Apple Browne CNM Referring Provider Active Start: March 13, 2025 Team Status: Inactive Member Role/Relationship Status Dates CARLA Plascencia Primary care physician Active Start: March 19, 2025 End: March 19, 2025 CARLA Plascencia Referring Provider Active St art: March 19, 2025 End: March 19, 2025 Kelsey Harrell CNM Attending physician Active Start: March 19, 2025 End: March 19, 2025 Team Status: Inactive Member Role/Relationship Status Dates CARLA Plascencia Primary care physician Active Start: March 19, 2025 End: March 19, 2025 Kelsey Harrell CNM Attending physician Active Start: March 19, 2025 End: March 19, 2025 Kelsey Harrell CNM Referring Provider Active S tart: March 19, 2025 End: March 19, 2025 Team Status: Inactive Member Role/Relationship Status Dates CARLA Plascencia Primary care physician Active Start: April 18, 2025 End: April 18, 2025 CARLA Plascencia Referring Provider Active St art: April 18, 2025 End: April 18, 2025 BING Reinoso NPC Attending physician Active Start: April 18, 2025 End: April 18, 2025 Scheduled Active and Recently Administ ered Medications (unrecognized section and content) Medication Order 10/12/2023 10/13/2023 10/14/2023 acetaminophen (Tylenol) tablet 975 mg (COMPLETED) 975 mg, oral, Once, On Amanda 10/14/23 at 0800, For 1 dose, Preprocedure, If ordered PRN for pain, nurse is permitted to administer this medication for higher pain scores based on patient preference? Yes 0759 (Given - Provid er: Ratna Mendoza RN) aprepitant (Emend) capsule 40 mg (CANCELED) 40 mg, oral, Daily, First dose on Amanda 10/14/23 at 0930, Preprocedure 09 (Given - Provid er: Ratna Mendoza RN) celecoxib (CeleBREX) capsule 400 mg (COMPLETED) 400 mg, oral, Once, On Amanda 10/14/23 at 0800, For 1 dose, Preprocedure, Capsules may be opened and sprinkled on a spoonful of cold or room temperature applesauce. 0759 (Given - Provid er: Ratna Mendoza RN) dexAMETHasone (PF) (Decadron) injection 10 mg (COMPLETED) 10 mg, intravenous, Once, On Amanda 10/14/23 at 0800, For 1 dose, Preprocedure 0759 (Given - Provid er: Ratna Mendoza RN) famotidine PF (Pepcid) injection 20 mg (COMPLETED) 20 mg, intravenous, Once, On Amanda 10/14/23 at 0800, For 1 dose, Preprocedure 0759 (Given - Provid er: Ratna Mendoza RN) gabapentin (Neurontin) capsule 300 mg (COMPLETED) 300 mg, oral, Once, On Amanda 10/14/23 at 0800, For 1 dose, Preprocedure, Pre-op Capsules may be opened and sprinkled on food (eg, applesauce, orange juice, pudding 0800 (Given - Provid er: Ratna Mendoza RN) midazolam (Versed) injection 2 mg (COMPLETED) 2 mg, intravenous, Once, On Amanda 10/14/23 at 0800, For 1 dose, Preprocedure 09 (Given - Provid er: Ratna Mendoza RN) ondansetron (Zofran) injection 4 mg (COMPLETED) 4 mg, intravenous, Once, On Amanda 10/14/23 at 0800, For 1 dose, Preprocedure, When administering via IV Push, administer over 3-5 minutes. 0758 (Given - Provid er: Ratna Mendoza RN) scopolamine (Transderm-Scop) patch 1 patch (CANCELED) 1 patch, transdermal, Administer over 72 Hours, Every 72 hours, First dose on Amanda 3/14/24 at 0930, Preprocedure, Apply to hairless area of skin behind the ear. 0907 (Medication Reyna lied - Provider: Ratna Mendoza RN)1052 (Due: Medication Removed - Provider: Automatic Transfer Provider - Comment: Time automatically adjusted from order being discontinued) Continuous Medication Order 10/12/2023 10/13/2023 10/14/2023 lactated Ringer's infusion 75 mL/hr, intravenous, Continuous, Starting on Amanda 10/14/23 at 0800 0758 (New Bag - Prov ider: Ratna Mendoza RN)0912 (Continued by Anesthesia - Provider: Chad Alvarez DO)1003 (Anesthesia Volume Adjustment - Provider: Chad Alvarez DO) lactated Ringer's infusion 100 mL/hr, intravenous, Continuous, Starting on Amanda 10/14/23 at 0900, Recovery (only) 0900 (Due) PRN Medication Order 10/12/2023 10/13/2023 10/14/2023 HYDROmorphone (Dilaudid) injection 0.5 mg 0.5 mg, intravenous, Every 5 min PRN, pain moderate (4-6), first line, Starting on Amanda 10/14/23 at 0832, Recovery (only), Max total of 4 mg regardless of dose. HYDROmorphone (Dilaudid) injection 0.5 mg 0.5 mg, intravenous, Every 5 min PRN, pain severe (7-10), first line, Starting on Amanda 10/14/23 at 0832, Recovery (only), Max total of 4 mg regardless of dose. ondansetron (Zofran) injection 4 mg 4 mg, intravenous, Once as needed, nausea/vomiting, second line, Starting on Amanda 10/14/23 at 0832, For 1 dose, Recovery (only), When administering via IV Push, administer over 3-5 minutes. oxyCODONE (Roxicodone) immediate release tablet 5 mg 5 mg, oral, Every 4 hours PRN, pain mild (1-3), first line, Starting on Amanda 10/14/23 at 0832, Recovery (only), When able to take oral medications., If ordered PRN for pain, nurse is permitted to administer this medication for higher pain scores based on patient preference? Yes 1055 (Given - Provid er: Ratna Mendoza RN) oxygen (O2) therapy inhalation, Continuous PRN - O2/gases, other, Starting on Amanda 10/14/23 at 0832, Recovery (only), Device: Simple Face Mask, Rate in Liters per minute: 6 LPM, Keep O2 Sat Above: 92% promethazine (Phenergan) 6.25 mg in sodium chloride 0.9% 50 mL IV 6.25 mg, intravenous, Administer over 15 Minutes, Once as needed, Nausea/vomiting first line, Starting on Amanda 10/14/23 at 0832, For 1 dose, Recovery (only) Scheduled Medication Order 04/26/2024 04/27/2024 04/28/2024 acetaminophen (Tylenol) tablet 975 mg (COMPLETED) 975 mg, oral, Once, On Wed04/28/24 at 0630, For 1 dose, Preprocedure, If ordered PRN for pain, nurse is permitted to administer this medication for higher pain scores based on patient preference? Yes 0648 (Given - Provid er: Esther Lubin RN) acetaminophen (Tylenol) tablet 975 mg 975 mg, oral, Once, On Wed04/28/24 at 1000, For 1 dose, Recovery (only), If ordered PRN for pain, nurse is permitted to administer this medication for higher pain scores based on patient preference? Yes 1000 (Due) celecoxib (CeleBREX) capsule 400 mg (COMPLETED) 400 mg, oral, Once, On Wed04/28/24 at 0630, For 1 dose, Preprocedure, Capsules may be opened and sprinkled on a spoonful of cold or room temperature applesauce. 0648 (Given - Provid er: Esther Lubin RN) famotidine PF (Pepcid) injection 20 mg 20 mg, intravenous, Administer over 2 Minutes, Once, On Wed04/28/24 at 1000, For 1 dose, Recovery (only) 1000 (Due) gabapentin (Neurontin) capsule 600 mg (COMPLETED) 600 mg, oral, Once, On Wed04/28/24 at 0630, For 1 dose, Preprocedure, Capsules may be opened and sprinkled on food (eg, applesauce, orange juice, pudding). Capsules may be opened and sprinkled on food (eg, applesauce, orange juice, pudding 0648 (Given - Provid er: Esther Lubin RN) lidocaine 4 % patch 1 patch 1 patch, transdermal, Administer over 12 Hours, Daily, First dose on Wed04/28/24 at 1045, Apply to areas of pain (such as neck/shoulder or around incision sites). Patch will remain on for 12 hours, then removed for [address] patch directly over any surgical incisions or wounds. 1045 (Due) metoprolol tartrate (Lopressor) injection 5 mg 5 mg, intravenous, Once, On Wed04/28/24 at 1000, For 1 dose, Recovery (only) 1000 (Due) scopolamine (Transderm-Scop) patch 1 patch 1 patch, transdermal, Administer over 72 Hours, Once, On Wed04/28/24 at 1000, For 1 dose, Recovery (only), Apply to hairless area of skin behind the ear. 1000 (Due) Continuous Medication Order 04/26/2024 04/27/2024 04/28/2024 lactated Ringer's infusion 100 mL/hr, intravenous, Continuous, Starting on Wed04/28/24 at 1000, Recovery (only) 1006 (Continued from OR - Provider: Vernell Ritter RN)1300 (Stopped - Provider: Vernell Ritter RN) PRN Medication Order 04/26/2024 04/27/2024 04/28/2024 albuterol 2.5 mg /3 mL (0.083 %) nebulizer solution 2.5 mg 2.5 mg, nebulization, Once as needed, wheezing, Starting on Wed04/28/24 at 0940, For 1 dose, Recovery (only) bupivacaine PF (Marcaine) 0.5 % (5 mg/mL) injection (CANCELED) As needed, Starting on Wed04/28/24 at 0938, Intraprocedure 0938 (Given - Provid er: Jayden Taylor MD) diphenhydrAMINE (BENADryl) injection 25 mg 25 mg, intravenous, Once as needed, itching, allergic reaction, Starting on Wed04/28/24 at 0940, For 1 dose, Recovery (only) hydrALAZINE (Apresoline) injection 10 mg 10 mg, intravenous, Administer over 2 Minutes, Every 30 min PRN, systolic blood pressure greater than 180 mmHg and heart rate less than 60 BPM, Starting on Wed04/28/24 at 0940, For 2 doses, Recovery (only) HYDROmorphone (Dilaudid) injection 1 mg 1 mg, intravenous, Every 5 min PRN, pain severe (7-10), first line, Starting on Wed04/28/24 at 0940, Recovery (only), Max total of 4 mg regardless of dose. 1016 (Given - Provid er: Vernell Ritter RN) labetaloL (Normodyne,Trandate) injection 10 mg 10 mg, intravenous, Administer over 1 Minutes, Once as needed, systolic blood pressure greater than 180 mmHg, dystolic blood pressure greater than 100 mmHg and heart rate greater than 60 BPM, Starting on Wed04/28/24 at 0940, For 1 dose, Recovery (only) meperidine PF (Demerol) injection 12.5 mg 12.5 mg, intravenous, Every 10 min PRN, shivering, Starting on Wed04/28/24 at 0940, Recovery (only) 1034 (Given - Provid er: Vernell Ritter RN) methylene blue (Provayblue) 10 mL in sodium chloride 0.9% 100 mL mixture (CANCELED) As needed, Starting on Wed04/28/24 at 0838, Intraprocedure 0838 (Given - Provid er: Jayden Taylor MD - Comment: FALLOPIAN TUBES) midazolam (Versed) injection 1 mg 1 mg, intravenous, Once as needed, anxiety, Starting on Wed04/28/24 at 0940, For 1 dose, Recovery (only) morphine injection 2 mg 2 mg, intravenous, Every 5 min PRN, pain moderate (4-6), first line, Starting on Wed04/28/24 at 0940, Recovery (only), Max total of 20 mg regardless of dose. 1034 (Given - Provid er: Vernell Ritter RN)1130 (Given - Provider: Vernell Ritter RN) ondansetron (Zofran) injection 4 mg 4 mg, intravenous, Once as needed, nausea/vomiting, first line, Starting on Wed04/28/24 at 0940, For 1 dose, Recovery (only), When administering via IV Push, administer over 3-5 minutes. promethazine 6.25 mg in sodium chloride 0.9% 50 mL IV 6.25 mg, intravenous, Administer over 15 Minutes, Once as needed, Nausea/vomiting, second line, Starting on Wed04/28/24 at 0940, For 1 dose, Recovery (only) sodium chloride 0.9 % irrigation solution (CANCELED) As needed, Starting on Wed04/28/24 at 0802, Intraprocedure 0802 (Given - Provid er: Jayden Taylor MD - Comment: SUCTION IRRIGATION USE PRN) sterile water irrigation solution (CANCELED) As needed, Starting on Wed04/28/24 at 0802, Intraprocedure 0802 (Given - Provid er: Jayden Taylor MD - Comment: POURED ONTO STERILE FIELD FOR USE PRN) Scheduled Medication Order 11/21/2024 11/22/2024 11/23/2024 EPINEPHrine (Anaphylaxis) (ADRENALIN) 1 MG/ML injection 0.3 mg (COMPLETED) 0.3 mg, Intramuscular, ONCE, 1 dose, On Amanda 11/23/24 at 0300, For intraMUSCULAR use, anterolateral thigh is recommended site of administration 0242 (Given - Provid er: Archie Swenson RN) PRN Medication Order 11/21/2024 11/22/2024 11/23/2024 Lidocaine 1% (PF) (XYLOCAINE MPF) 1 % injection 0.3 mL 0.3 mL, Infiltration, ONCE NEEDED, 1 dose, Starting on Wed11/23/24 at 0215, Until Wed11/23/24 at 0902, Other, peripheral IV insertion Goals (unrecognized section and content) Type Care Experience Labor Preferences-CB /BF classes: []labor support person: []labor intervention preferences: []pain management options preferred: []cut cord/dad catch: []: []PP control planned: []discussed possible routes of delivery and associated risks: []special requests: [] FOR RECORDS PERTAINING TO PATIENTS WHO ARE OR HAVE BEEN ENROLLED IN A CHEMICAL DEPENDENCY/SUBSTANCEABUSE PROGRAM, SOME INFORMATION MAY BE OMITTED. This clinical summary was aggregated from multiple sources. Caution should be exercised in using it in the provision of clinical care. This summary normalizes information from multiple sources, and as a consequence, information in this document may materially change the coding, format and clinical context of patient data. In addition, data may be omitted in some cases. CLINICAL DECISIONS SHOULD BE BASED ON THE PRIMARY CLINICAL RECORDS. [facility] provides no warranty or guarantee of the accuracy or completeness of information in this document.
--- OUTSIDE RECORDS SUMMARY | 2025-05-17 17:02 | XMS RPT_ITS | CCD ---
Author Organization [facility] Care Team Providers Care Director Of Psychology Name Role Phone Freya Dobson Unavailable Unavailable Freya Dobson Unavailable Unavailable Amrit Pollockn M Unavailable Unavailable Unavailable Unavailable Unavailable Phill Sukh Unavailable Freya Dial Unavailable Unavailable Sharda Chávez Unavailable Unavailable Newbill PA-C Sukh M Primary Care Provider Newbill PA-C Sukh M Unavailable Newbill PA-C, Sukh M Unavailable Richelle Paola Unavailable Unavailable Unavailable Unavailable Newbill PA-C Sukh M Unavailable [phone] Newbill Sukh Primary Care Unavailable Ms. [...] Care Unavail able Newbill Sukh MILLER Unavailable [phone] [place] ASSESSMENT COORDINATOR-SYRUP FILTERER, Ayaka B Primary Care Provider Selam ASSESSMENT COORDINATOR-SYRUP FILTERER, Ayaka B Unavailable [place] ASSESSMENT COORDINATOR-SYRUP FILTERER, Ayaka B Primary Care Provider Selam ASSESSMENT COORDINATOR-SYRUP FILTERER, Ayaka B Unavailable Dr. Daniel Schneider DO Emergency Provider [place] CIRCUS SUPERVISOR-C, Ayaka Primary Care Provider Selam HUSBANDRY TECHNICIAN, [facility] Primary Care Provider Selam ASSESSMENT COORDINATOR-SYRUP FILTERER, Ayaka B Unavailable RYAN GUERRA Attending Unavailable [facility], AYAKA B Primary Care Unavailable GENERIC PROVIDER, NO ASSIGNED PCP Primary Care Unavailable JAYDEN TAYLOR Admitting Unavailable JAYDEN TAYLOR Attending Unavailable [facility], AYAKA B Primary Care Unavailable JAYDEN TAYLOR Admitting Unavailable JAYDEN TAYLOR Attending Unavailable [facility], AYAKA B Primary Care Unavailable [facility], AYAKA B Primary Care Unavailable [facility], AYAKA B Primary Care Unavailable EVENS PALACIOS Attending Unavailable EVENS PALACIOS Referring Unavailable SELAM, AYAKA B Referring Unavailable SELAM, AYAKA B Primary Care Unavailable SELAM, AYAKA B Primary Care Unavailable EVENS PALACIOS Attending Unavailable SELAM, AYAKA B Referring Unavailable SELAM, AYAKA B Primary Care Unavailable Selam ASSESSMENT COORDINATOR-SYRUP FILTERER, Ayaka B Primary Care Provider SELAM, AYAKA [...] Dr. Daniel Schneider DO Attending Provider Selam CIRCUS SUPERVISOR-C, Ayaka Referring Provider [phone] Dr. Kirsten Aragon DO Attending Provider Apple Browne CNM Attending Provider [phone] Apple Browne CNM Referring Provider [phone] Dr. Marcie Santana MD Attending Provider [phone] [facility] CIRCUS SUPERVISOR-C, Ayaka Primary Care Provider Kelsey Harrell CNM Attending Provider [phone] Kelsey Harrell CNM Referring Provider [phone] JAYDEN TAYLOR Attending Unavailable SELAM, AYAKA B Primary Care Unavailable SELAM, AYAKA B Primary Care Unavailable [place] CIRCUS SUPERVISOR-C, Ayaka Primary Care Physician Dr. Kirsten Aragon DO Attending Physician Apple Browne CNM Attending Physician [phone] Nicole WEBER, Dr. Jack Attending Physician Kelsey Harrell CNM Attending Physician [phone] Marquita CIRCUS SUPERVISOR-CNelli Attending Physician [phone] MARCIE SANTANA Referring Unavailabl [...] Translations: [Sulfa Drugs] Allergy to drug (finding) [facility] Work Phone: (11 sources) Serotonin Reuptake Inhibitors (Ssris); Translations: [Serotonin Reuptake Inhibitors] Allergy to drug (finding) [facility] Work Phone: (20 sources) Serotonin; Translations: [SEROTONIN] Drug Allergy 3 Unknown, [facility] (20 sources) Sulfonamides (Antibiotic); Translations: [SULFA (SULFONAMIDE ANTIBIOTICS)] Drug Allergy 3 [facility] Work Phone: (8 sources) Sulfonamides (Antibiotic) Allergy to substance 5 [facility] (1 source) Serotonin Drug Allergy 3 [facility] (1 source) Sulfonamides (Antibiotic) Drug allergy (disorder) 5 [facility] Repository Medications Current Medications Medication Drug Class(es) [...] 10-14-2023 acetaminophen (Tylenol) tabl et 975 mg [id number] 200 actuat albuterol 0.09 mg/actuat metered dose [...] oral tablet (2 sources) alpha-Adrenergic Agonist, Uncompetitive V-cahele-R-aspartate Receptor Antagonist, Sigma-1 Agonist Start: 11-03-2022 End: 01-26-2023 take 1 tablet by mouth four times daily as needed igwpjnvlfxtplfq-JA-hhdgftviokm 60-15-400 mg tablet Indications: Pharyngitis, unspecified etiology [...] on above: Source=Surescripts, Medication=DULOXETINE HCL 20MG CAP, OriginatingSource=[facility]-[id number], OriginatingProvider=SUKH POLLOCK, Duration=30, Refills=11, Date Last Modified/Filled=23-Sep-2022 [id number] 0.3 ml EPINEPHrine 1 mg/ml auto-injector (3 [...] inhaler Indications: Mild intermittent asthma without complication ([facility]) Inhale 1 puff by mouth once daily [...] Indications: Moderate persistent asthma, unspecified whether complicated ([facility]) INHALE 1 PUFF BY MOUTH EVERY 4 [...] on above: Source=Surescripts, Medication=QUEtiapine Fumarate 25MG TAB, OriginatingSource=[facility], OriginatingProvider=SUKH POLLOCK, Duration=30, Refills=5, Date Last Modified/Filled=03-Nov-2022 [...] oral solution (5 sources) alpha-Adrenergic Agonist, Uncompetitive X-zaglso-J-aspartate Receptor Antagonist, Sigma-1 Agonist Start: 09-09-2024 End: 09-20-2024 take 5 mL by mouth four times daily as needed for cough vbwimrvbksvrhvt-vxzedpszx-GQ (Bromfed DM) 2-30-10 mg/5 mL syrup Indications: Acute non-recurrent maxillary sinusitis Take 5 mL by mouth 4 times a day as needed for allergies, congestion or cough. 240 mL 09/09/2024 09/20/2024 Discontinued (Therapy completed) Start: 06-24-2021 End: 09-01-2021 take 5-10 mL by mouth every four to six hours as needed for cough Fywiofkxb-Acosecme-FR 30-2-10 MG/5ML Ora l Syrup take 5-10 [...] mg docusate sodium 50 mg / sennosides, detention 8.6 mg oral tablet (7 sources) Start: [...] Complete Start: 09-01-2019 take 3 tablets by [facility] once daily, then take 2 tablets by [...] Chronic Comment on above: Dr Jayden Frank [facility]/surgery 04/2024. Esophageal disorders (20 sources) Gastroesophageal [...] lower back Other aftercare (1 source) Other roasterman (current) drug therapy; Translations: [Other mcfp (current) drug therapy] Onset: 3 Episodic Other [...] Test Name Value Interpretation Reference Range Facility Back Up Worker Office Visit Reporton 04-18-2025 Back Up Worker Office Visit Report [facility] [address], [address] [place] [address] OFFICE VISIT Date of Service: 04/18/25 MR#: [id number] Acct: [id number] Name: KM STRANGE Rep #: [id number] : 1995 Provider: CARLA aguiar Age/Sex: 29/F Location: [facility] Status: Signed Intake Vital Signs 02/22/25 09:25 03/19/25 15:12 04/18/25 08:21 Height 5 ft 5 ft 5 ft Weight: 146 lb 9 oz BMI 28.6 BP 110/70 Intake Visit Reasons: 21 WK OB Chief Complaint: 22 Week OB Flap Curer Required: No Is patient in pain?: No [...] status: employed 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 -???-???-???-???- (more content not included)... Normal [facility] Urine Cultureon 03-22-2025 URC Below infection leve l. GPC Poss Enterococcus sp [place] Count 1000-10,000 Normal [facility] Comment on above: Performed By: #### M 100.2200 #### [facility] [address] [place], [address] Laboratory - Chemistry and C hemistry - challengeOrdered By: Kelsey Harrell on 03-19-2025 Bilirubin Ql (U) Negative [facility] Glucose Ql (U) Negative [facility] Ketones Ql (U) Negative [facility] pH (U) 6.5 [pH] [facility] Specific gravity (U) [Rel density] 1.010 [facility] Urobilinogen (U) [Mass/Vol] Negative [facility] Laboratory - Hematology and Cell countsOrdered By: Kesley Harrell on 03-19-2025 Hemoglobin Ql (U) Negative [facility] Laboratory - Specimen inform ationOrdered By: Kelsey Harrell on 03-19-2025 Clarity (U) Clear [facility] Color (U) Yellow [facility] Laboratory - UrinalysisOrder ed By: Kelsey Harrell on 03-19-2025 Nitrite Ql (U) Negative [facility] Protein Ql (U) Negative [facility] No Panel InformationOrdered By: Kelsey Harrell on 03-19-2025 Urine Leukocytes Negatve [facility] Urine Non-Hemolyzed Blood [facility] Back Up Worker Office Visit Reporton 03-19-2025 Back Up Worker Office Visit Report [facility] [address], [address] [place] [id number] OFFICE VISIT Date of Service: 03/19/25 MR#: [id number] Acct: [id number] Name: KM STRANGE Rep #: [id number] : 1995 Provider: SHI Luther ams Age/Sex: 29/F Location: 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 (more content not included)... Normal [facility] Urine cultureOrdered By: Victor Manuel Harrell on 03-19-2025 Bacteria identified Cx Nom (U) GPC Poss Enterococcus sp Abnormal [facility] Laboratory - Chemistry and C hemistry - challengeOrdered By: Marcie Santana on 02-22-2025 Glucose Ql (U) Negative [facility] Laboratory - UrinalysisOrder ed By: Marcie Santana on 02-22-2025 Protein Ql (U) Negative [facility] Back Up Worker Office Visit Reporton 02-22-2025 Back Up Worker Office Visit Report [facility] [address] [place] [address] OFFICE VISIT Date of Service: 02/22/25 MR#: [id number] Acct: [id number] Name: KM STRANGE Rep #: [id number] : 1995 Provider: Dr. 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 Normal [facility] Inital Evaluation (1) - PTon 02-20-2025 Inital Evaluation (1) - PT [facility] Physical Therapy [facility] [address] [place] [address] / REHABILITATION SERVICES INITIAL EVALUATION MR#: [id number] Acct: [id number] Name: KM STRANGE Rep #: [id number] : 1995 29 From: Felicity Allan Referring Dr.: Apple Browne CNM Status: REG R Insurance: [facility] SELF PAY INSURANCE Patient's Visit Information Visit [...] pelvic floor exam once approved by her [employer]KER. She does have some lumbar dysfunction with [...] was seeing a pelvic floor therapist in [place]. She wasn't able to go weekly due [...] of her pain with intercourse was internal. [place] pain lately 7 -03/11. She feels like she urinating once an hour. She hasn't been great about drinking, as she gets anxious about finding a bathroom. She had to sit down with an admin at work to discuss the fact that she has to urinate so often. 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 She states the bladder has been [...] Mild pulling (more content not included)... Normal [facility] Chlamydia/GC SHANAE aptimaon CHLAMY,NUC ACID Negative Normal Negative [facility] Comment on above: Performed By: #### L 3890.6301, L7000.1800, BTS, M100.2200, L3890.6102, L3890.6006, L509.8002, L509.4006, L100.0100 ####[facility] [address] [place], [address] GC BY NUC ACID Negative Normal Negative [facility] Comment on above: Result Comment: Perf ormed at: =G - [facility] [address] [place] [id number] Vacuum Cleaner Repair Person: Taylor Kim MD, Phone: [phone] Performed By: #### L 3890.6301, L7000.1800, BTS, M100.2200, L3890.6102, L3890.6006, L509.8002, L509.4006, L100.0100 ####[facility] [address] [place], [address] Urine Cultureon 01-27-2025 URC Culture exhibits no growth. Normal [facility] Comment on above: Performed By: #### L 3890.6301, L7000.1800, BTS, M100.2200, L3890.6102, L3890.6006, L509.8002, L509.4006, L100.0100 ####[facility] [address] [place], [address] Absolute lymphocyte countOrd ered By: Apple Browne on 01-26-2025 Lymphocytes Auto (Unsp spec) [#/Vol] 1.83 10*3/uL 0.83-4.51 [facility] Absolute neutrophil countOrd ered By: Apple Browne on 01-26-2025 Neutrophils (Bld) [#/Vol] 5.2 10*3/uL 2.0-7.7 [facility] Automated lymphocyte count a s percentage of total leukocytesOrdered By: Apple Browne on 01-26-2025 Lymphocytes/100 WBC Auto (Unsp spec) 23.4 % 19-41 [facility] Basophil percentageOrdered B y: Apple Browne on 01-26-2025 Basophils/100 WBC (Bld) 0.4 % 0-1 [facility] CBC W/Diff, Automatedon 01-01 Absolute Lymph 1.83 X10 3/uL Normal 0.83-4.51 [facility] Comment on above: Performed By: #### L 3890.6301, L7000.1800, BTS, M100.2200, L3890.6102, L3890.6006, L509.8002, L509.4006, L100.0100 #### [facility] [address] [place], [address] ( Absolute Neut 5.2 X10 3/uL Normal 2.0-7.7 [facility] Comment on above: Performed By: #### L 3890.6301, L7000.1800, BTS, M100.2200, L3890.6102, L3890.6006, L509.8002, L509.4006, L100.0100 #### [facility] [address] [place], [address] Basophils/100 WBC (Bld) 0.4 % Normal 0-1 [facility] Comment on above: Performed By: #### L 3890.6301, L7000.1800, BTS, M100.2200, L3890.6102, L3890.6006, L509.8002, L509.4006, L100.0100 #### [facility] [address] [place], [address] Eosinophils/100 WBC (Bld) 3.2 % Normal 0-5 [facility] Comment on above: Performed By: #### L 3890.6301, L7000.1800, BTS, M100.2200, L3890.6102, L3890.6006, L509.8002, L509.4006, L100.0100 #### [facility] [address] [place], [address] Erythrocyte distribution width (RBC) [Ratio] 11.8 % Normal 11.6-14.6 [facility] Comment on above: Performed By: #### L 3890.6301, L7000.1800, BTS, M100.2200, L3890.6102, L3890.6006, L509.8002, L509.4006, L100.0100 #### [facility] [address] [place], [address] Hematocrit (Bld) [Volume fraction] 37.4 % Normal 37-47 [facility] Comment on above: Performed By: #### L 3890.6301, L7000.1800, BTS, M100.2200, L3890.6102, L3890.6006, L509.8002, L509.4006, L100.0100 #### [facility] [address] [place], [address] Hemoglobin (Bld) [Mass/Vol] 13.2 g/dL Normal 12.0-15.0 [facility] Comment on above: Performed By: #### L 3890.6301, L7000.1800, BTS, M100.2200, L3890.6102, L3890.6006, L509.8002, L509.4006, L100.0100 #### [facility] [address] [facility] [place], [address] IG% 0.400 Normal 0.0-0.9 [facility] Comment on above: Result Comment: IG% - Immature Granulocytes (promyelocytes, myelocytes and metamyelocytes) > 1% indicates that a LEFT SHIFT is Present. Performed By: #### L 3890.6301, L7000.1800, BTS, M100.2200, L3890.6102, L3890.6006, L509.8002, L509.4006, L100.0100 #### [facility] [address] [place], [address] Lymphocytes/100 WBC (Bld) 23.4 % Normal 19-41 [facility] Comment on above: Performed By: #### L 3890.6301, L7000.1800, BTS, M100.2200, L3890.6102, L3890.6006, L509.8002, L509.4006, L100.0100 #### [facility] [address] [place], [address] MCH (RBC) [Entitic mass] 31.1 pg Normal 27.0-32.0 [facility] Comment on above: Performed By: #### L 3890.6301, L7000.1800, BTS, M100.2200, L3890.6102, L3890.6006, L509.8002, L509.4006, L100.0100 #### [facility] [address] [place], [address] MCHC (RBC) [Mass/Vol] 35.3 g/dL Normal 32-[address] [facility] Comment on above: Performed By: #### L 3890.6301, L7000.1800, BTS, M100.2200, L3890.6102, L3890.6006, L509.8002, L509.4006, L100.0100 #### [facility] [address] [place], [address] MCV (RBC) [Entitic vol] 88.2 fL Normal 81-99 [facility] Comment on above: Performed By: #### L 3890.6301, L7000.1800, BTS, M100.2200, L3890.6102, L3890.6006, L509.8002, L509.4006, L100.0100 #### [facility] [address] [place], [address] Monocytes/100 WBC (Bld) 6.9 % Normal 0-10 [facility] Comment on above: Performed By: #### L 3890.6301, L7000.1800, BTS, M100.2200, L3890.6102, L3890.6006, L509.8002, L509.4006, L100.0100 #### [facility] [address] [place], [address] Neutrophils/100 WBC (Bld) 65.7 % Normal 47-70 [facility] Comment on above: Performed By: #### L 3890.6301, L7000.1800, BTS, M100.2200, L3890.6102, L3890.6006, L509.8002, L509.4006, L100.0100 #### [facility] [address] [place], [address] Nucleated RBC (Bld) [#/Vol] 0 10*3/uL Normal 0-5 [facility] Comment on above: Performed By: #### L 3890.6301, L7000.1800, BTS, M100.2200, L3890.6102, L3890.6006, L509.8002, L509.4006, L100.0100 #### [facility] [address] [place], [address] Platelet mean volume (Bld) [Entitic vol] 10.6 fL Normal 6.2-12.0 [facility] Comment on above: Performed By: #### L 3890.6301, L7000.1800, BTS, M100.2200, L3890.6102, L3890.6006, L509.8002, L509.4006, L100.0100 #### [facility] [address] [place], [address] Platelets (Bld) [#/Vol] 213 10*3/uL Normal 150-450 [facility] Comment on above: Performed By: #### L 3890.6301, L7000.1800, BTS, M100.2200, L3890.6102, L3890.6006, L509.8002, L509.4006, L100.0100 #### [facility] [address] [place], [address] RBC (Bld) [#/Vol] 4.24 10*6/uL Normal 4.2-5.4 [facility] Comment on above: Performed By: #### L 3890.6301, L7000.1800, BTS, M100.2200, L3890.6102, L3890.6006, L509.8002, L509.4006, L100.0100 #### [facility] [address] [place], [address] RDW SD 38.0 fl Normal 35.1-43.9 [facility] Comment on above: Performed By: #### L 3890.6301, L7000.1800, BTS, M100.2200, L3890.6102, L3890.6006, L509.8002, L509.4006, L100.0100 #### [facility] [address] [place], [address] WBC (Bld) [#/Vol] 7.8 10*3/uL Normal 4.4-11.0 [facility] Comment on above: Performed By: #### L 3890.6301, L7000.1800, BTS, M100.2200, L3890.6102, L3890.6006, L509.8002, L509.4006, L100.0100 #### [facility] [address] [place], [address] Chlamydia trachomatis rRNA d etection by probe and target amplification methodOrdered By: Apple Browne on 01-26-2025 C. trachomatis rRNA SHANAE+probe Ql (Unsp spec) Negative Negative [facility] Eosinophil percentageOrdered By: Apple Browne on 01-26-2025 Eosinophils/100 WBC (Bld) 3.2 % 0-5 [facility] Erythrocyte distribution wid th ratioOrdered By: Apple Browne on 01-26-2025 Erythrocyte distribution width (RBC) [Ratio] 11.8 % 11.6-14.6 [facility] Erythrocyte distribution wid th standard deviationOrdered By: Apple Browne on 01-26-2025 Erythrocyte distribution width (RBC) [Ratio] 38.0 fl 35.1-43.9 [facility] HIVon 01-26-2025 HIV Non-Reactive Normal Nonreactive [facility] Comment on above: Result Comment: Non- Reactive Reactive Repeatedly reactive samples must be confirmed according to CDC recommended confirmatory algorithms. The subresults for either HIVAG or AHIV can be used as an aid in the selection of the confirmation algorithm for reactive samples. Send out specimens with Reactive results to [facility] for confirmation. Order the HIV antibody detection and differentiation: [id number] Performed By: #### L 3890.6301, L7000.1800, BTS, M100.2200, L3890.6102, L3890.6006, L509.8002, L509.4006, L100.0100 #### [facility] [address] [facility] [place], [place], [id number] Hematocrit Auto (Bld) [Volum e fraction]Ordered By: Apple Browne on 01-26-2025 Hematocrit (Bld) [Volume fraction] 37.4 % 37-47 [facility] Hemoglobin measurementOrdere d By: Apple Browne on 01-26-2025 Hemoglobin (Bld) [Mass/Vol] 13.2 g/dL 12.0-15.0 [facility] Hepatitis C Antibodyon 01-26 Hepatitis C Ab Non-Reactive Normal Nonreactive [facility] Comment on above: Result Comment: Reac tive: Presumptive evidence of antibodies to HCV. Follow CDC recommendations for supplemental testing. Non-Reactive: Antibodies to HCV were not detected; does not exclude the possibility of exposure to HCV Reactive Results are presumptive evidence of antibodies to HCV. Follow CDC recommendations for supplemental testing. Order confirmation testing: HCV Quant by PCR testing - [facility]PCR #[id number] Non Reactive: < 0.8 Equivocal: >/= 0.8 to < 1.0 Reactive: >/= 1.0 The CDC requires that a reactive/equivocal HCV antibody result be sent out for confirmation. HCV Quant by PCR testing. Performed By: #### L 3890.6301, L7000.1800, BTS, M100.2200, L3890.6102, L3890.6006, L509.8002, L509.4006, L100.0100 ####[facility] [address] [place], [place], [id number] Immature granulocytes/100 WB C Auto (Bld)Ordered By: Apple Browne on 01-26-2025 Immature granulocytes/100 WBC (Bld) 0.400 % 0.0-0.9 [facility] Comment on above: IG% - Immature Granu locytes (promyelocytes, myelocytes and metamyelocytes) > 1% indicates that a LEFT SHIFT is Present. L3890.6102on 01-26-2025 HEP B Surf Ag Non-Reactive Normal Nonreactive [facility] Administration Comment on above: Result Comment: Reac tive: Presumptive evidence of HBV. Repeatedly reactive samples must be confirmed using a neutralization test (Ele[employer]ys HBsAg Confirmatory Test) Non-Reactive: HBsAg not detected; does not exclude the possibility of exposure to HBV Performed By: #### L 3890.6301, L7000.1800, BTS, M100.2200, L3890.6102, L3890.6006, L509.8002, L509.4006, L100.0100 ####[facility] [address] [facility]. [place], [place], [id number] L509.4006on 01-26-2025 Rubella IgG REAC Normal Nonreactive [facility] Comment on above: Result Comment: Anti body Result: Interpretation Non-Reactive: Non-Immune Reactive: Immune The following results were obtained with the [employer]csys Rubella IgG assay. Results from assays of other manufacturers cannot be used interchangeably. Performed By: #### L 3890.6301, L7000.1800, BTS, M100.2200, L3890.6102, L3890.6006, L509.8002, L509.4006, L100.0100 #### [facility] [address] [facility]. [place], [place], [id number] Laboratory - Microbiology an d Antimicrobial susceptibilityOrdered By: Apple Browne on 01-26-2025 HBV surface Ag Ql (S) Non-Reactive Nonreactive [facility] Comment on above: Reactive: Presumptiv e evidence of HBV. Repeatedly reactive samples must be confirmed using a neutralization test (Ele[employer]ys HBsAg Confirmatory Test)Non-Reactive: HBsAg not detected; does not exclude the possibility of exposure to HBV MCV (mean corpuscular volume ) determinationOrdered By: Apple Browne on 01-26-2025 MCV (RBC) [Entitic vol] 88.2 fL 81-99 [facility] Mean corpuscular hemoglobin (MCH) determinationOrdered By: Apple Browne on 01-26-2025 MCH (RBC) [Entitic mass] 31.1 pg 27.0-32.0 [facility] Mean corpuscular hemoglobin concentration (MCHC) determinationOrdered By: Apple Browne on 01-26-2025 MCHC (RBC) [Mass/Vol] 35.3 g/dL 32-[address] [facility] Mean platelet volume determi nationOrdered By: Apple Browne on 01-26-2025 Platelet mean volume (Bld) [Entitic vol] 10.6 fL 6.2-12.0 [facility] Monocyte percentageOrdered B y: Apple Browne on 01-26-2025 Monocytes/100 WBC (Bld) 6.9 % 0-10 [facility] Neisseria gonorrhoeae nuclei c acid detection by amplified probe techniqueOrdered By: Apple Browne on 01-26-2025 N. gonorrhoeae DNA SHANAE+probe Ql (Unsp spec) Negative Negative [facility] Comment on above: Performed at: =G - L [address] [id number] Director: Taylor Kim MD, Phone: [phone] Neutrophil percentageOrdered By: Apple Browne on 01-26-2025 Neutrophils/100 WBC (Bld) 65.7 % 47-70 [facility] No Panel InformationOrdered By: Apple Browne on 01-26-2025 HIV (1&2) Antibody Non-Reactive Nonreactive [facility] Comment on above: Non-ReactiveReactive Repeatedly reactive samples must be confirmed according to CDC recommended confirmatory algorithms. The subresults for either HIVAG or AHIV can be used as an aid in the selection of the confirmation algorithm for reactive samples.Send out specimens with Reactive results to [facility] for confirmation.Order the HIV antibody detection and differentiation: #[id number] Nucleated red blood cell per centageOrdered By: Apple Browne on 01-26-2025 Nucleated RBC/100 WBC (Bld) [Ratio] 0 % 0-5 [facility] Back Up Worker Office Visit Reporton 01-26-2025 Back Up Worker Office Visit Report [facility] [address] [place] [address], [address] [place] [address] OFFICE VISIT Date of Service: 01/26/25 MR#: [id number] Acct: [id number] Name: KM STRANGE Rep #: [id number] : 1995 Provider: SHI price Age/Sex: 29/F Location: [facility] Status: Signed Intake Vital Signs 11/05/24 15:17 01/12/25 09:14 01/26/25 13:35 Height 5 ft 5 ft 5 ft Weight: 128 lb 8 oz BMI 25.0 BP 106/74 Intake Visit Reasons: *EST* NOB LMP 11/24, ERIN 08/31 Chief Complaint: New ob Flap Curer Required: No Is patient in pain?: No [...] status: employed 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 ) and Negative: Diabetes, Hypertension, Heart disease, Auto-immune disorder, Kidney disease/UTI, Neurologic/epilepsy, Psychiatric, Depression/ depression, Hepatit (more content not included)... Normal [facility] Platelet countOrdered By: Jada Browne on 01-26-2025 Platelets (Bld) [#/Vol] 213 10*3/uL 150-450 [facility] RBC Auto (Bld) [#/Vol]Ordere d By: Apple Browne on 01-26-2025 RBC (Bld) [#/Vol] 4.24 10*6/uL 4.2-5.4 [facility] Syphilis Antibodieson 2024 Syphilis Abs Non-Reactive Normal Nonreactive [facility] Comment on above: Performed By: #### L 3890.6301, L7000.1800, BTS, M100.2200, L3890.6102, L3890.6006, L509.8002, L509.4006, L100.0100 #### [facility] [address] [place], [address] Type AND Screenon 01-26-2025 ABO and Rh group Nom (Bld) Blood group A Rh(D) positive Normal [facility] Comment on above: Order Comment: PN Performed By: #### L 3890.6301, L7000.1800, BTS, M100.2200, L3890.6102, L3890.6006, L509.8002, L509.4006, L100.0100 ####[facility] [address] [place], [address] Urine cultureOrdered By: Sarah Browne on 01-26-2025 Bacteria identified Cx Nom (U) Culture exhibits no growth. [facility] White blood cell (WBC) count Ordered By: Apple Browne on 01-26-2025 WBC (Bld) [#/Vol] 7.8 10*3/uL 4.4-11.0 [facility] Laboratory - Chemistry and C hemistry - challengeOrdered By: Kirsten Herrmann on 01-12-2025 HCG ( test) Ql (U) Positive [facility] Office Visit Reporton 2024 Office Visit Report [facility] [address] [place] [address] OFFICE VISIT Date of Service: 01/12/25 MR#: [id number] Acct: [id number] Patient: KM STRANGE Rep #: [id number] : 1995 Provider: Dr. Kirsten Mason DO Age/Sex: 29/F Location: [facility] Status: Signed Intake Vital Signs 11/05/24 15:17 [...] Cosign Signature: Date (if applicable) CC: Normal [facility] CBC AND ELECTRONIC DIFFon Abs Baso Auto < Normal 0.00-0.15 [facility] Comment on above: Performed By: #### L AB980 #### [facility] (DEFAULT) [address] [address] Basophils/100 WBC (Bld) 0.5 % Normal [facility] Comment on above: Performed By: #### L AB980 #### [facility] (DEFAULT) [address] [address] DIFF STATUS Electronic Differential Normal [facility] Comment on above: Performed By: #### L AB980 #### [facility] (DEFAULT) [address] [address] Eosinophils (Bld) [#/Vol] 0.12 10*3/uL Normal 0.00-0.42 [facility] Comment on above: Performed By: #### L AB980 #### [facility] (DEFAULT) [address] [address] Eosinophils/100 WBC (Bld) 1.8 % Normal [facility] Comment on above: Performed By: #### L AB980 #### [facility] (DEFAULT) [address] [address] Hematocrit (Bld) [Volume fraction] 37.5 % Normal 34.9-44.3 [facility] Comment on above: Performed By: #### L AB980 #### [facility] (DEFAULT) [address] [address] Hemoglobin (Bld) [Mass/Vol] 13.2 g/dL Normal 11.4-15.2 [facility] Comment on above: Performed By: #### L AB980 #### [facility] (DEFAULT) [address] [address] Immature Grans % 0.2 % Normal [facility] Comment on above: Performed By: #### L AB980 #### [facility] (DEFAULT) [address] [address] Immature Grans Absolute < Normal <=0.08 [facility] Comment on above: Performed By: #### L AB980 #### [facility] (DEFAULT) [address] [address] Lymphocytes (Bld) [#/Vol] 2.17 10*3/uL Normal 1.16-3.51 [facility] Comment on above: Performed By: #### L AB980 #### [facility] (DEFAULT) [address] [address] Lymphocytes/100 WBC (Bld) 32.8 % Normal [facility] Comment on above: Performed By: #### L AB980 #### [facility] (DEFAULT) [address] [place] [address] MCV (RBC) [Entitic vol] 86.0 fL Normal 79.6-97.7 [facility] Comment on above: Performed By: #### L AB980 #### [facility] (DEFAULT) [address] [place] [address] Mean Cell Hgb 30.3 pg Normal 25.9-33.9 [facility] Comment on above: Performed By: #### L AB980 #### [facility] (DEFAULT) [address] [address] Mean Cell Hgb Conc 35.2 g/dL Normal 31.4-35.9 [facility] Comment on above: Performed By: #### L AB980 #### [facility] (DEFAULT) [address] [address] Monocytes (Bld) [#/Vol] 0.39 10*3/uL Normal 0.22-0.87 [facility] Comment on above: Performed By: #### L AB980 #### [facility] (DEFAULT) [address] [address] Monocytes/100 WBC (Bld) 5.9 % Normal [facility] Comment on above: Performed By: #### L AB980 #### [facility] (DEFAULT) [address] [address] Nucleated RBC 0.0 /100 WBC Normal <=0.2 [facility] Comment on above: Performed By: #### L AB980 #### [facility] (DEFAULT) [address] [address] Platelet mean volume (Bld) [Entitic vol] 11.0 fL Normal 8.5-12.2 [facility] Comment on above: Performed By: #### L AB980 #### [facility] (DEFAULT) [address] [place] [address] Platelets (Bld) [#/Vol] 181 10*3/uL Normal 150-393 [facility] Comment on above: Performed By: #### L AB980 #### [facility] (DEFAULT) [address] [address] RBC (Bld) [#/Vol] 4.36 10*6/uL Normal 3.91-5.04 [facility] Comment on above: Performed By: #### L AB980 #### [facility] (DEFAULT) [address] [place] [address] RBC Distribution 11.4 % Normal 10.8-14.9 [facility] Comment on above: Performed By: #### L AB980 #### [facility] (DEFAULT) [address] [place] [address] Segs + Bands Auto 58.8 % Normal [facility] Comment on above: Performed By: #### L AB980 #### [facility] (DEFAULT) [address] [place] [address] Segs + Bands,Absolute Auto 3.90 K/uL Normal 1.64-7.28 [facility] Comment on above: Performed By: #### L AB980 #### [facility] (DEFAULT) [address] [place] [address] WBC (Bld) [#/Vol] 6.62 10*3/uL Normal 3.99-11.19 [facility] Comment on above: Performed By: #### L AB980 #### [facility] (DEFAULT) [address] [address] ZCPTNLWNZ-HJUWF-6,3-GALACTOS E IGEon 01-04-2025 Xrqhkwosg-jhblw-0,3-ga lactose, IgE <0.10 Normal <0.70 [facility] Comment on above: Result Comment: Clas s 0 (Negative <0.10) Test Performed by: [facility] [address] [place] [address] Vacuum Cleaner Repair Person: Aliyah Elmore Ph.D.; CLIA# [id number] Performed By: #### Y FGA13 #### [facility] (DEFAULT) [address] [place] [address] IMMUNOGLOBULIN IGEon 025 Total IgE 52.4 IU/mL Normal <=165.3 [facility] Comment on above: Performed By: #### I GE #### [facility] (DEFAULT) [address] [place] [address] MAST CELL TRYPTASEon 025 Tryptase 3.2 ng/mL Normal <11.5 [facility] Comment on above: Result Comment: Test Performed by: [facility] [address] [place] [address] Vacuum Cleaner Repair Person: Aliyah Elmore Ph.D.; CLIA# [id number] Performed By: #### Y MAST #### [facility] (DEFAULT) [address] [place] [address] Measure post void residualon 01-02-2025 PVR=80 [facility] Work Phone: [phone] [facility] Work Phone: )[phone] POCT UA Automated manually r esultedon 01-02-2025 Glucose Test strip (U) [Mass/Vol] Negative NEGATIVE mg/dl [facility] Work Phone: )[phone] Hemoglobin Ql (U) Negative NEGATIVE [facility] Work Phone: Leukocyte esterase Test strip Ql (U) Negative NEGATIVE [facility] Work Phone: Nitrite Ql (U) Negative NEGATIVE [facility] Work Phone: pH (U) 6.5 [pH] No Reference Range Established [facility] Work Phone: [phone] POC Bilirubin, Urine Negative NEGATIVE [facility] Work Phone: [phone] POC Ketones, Urine Negative NEGATIVE mg/dl [facility] Work Phone: )[phone] POC Protein, Urine Negative NEGATIVE mg/dl [facility] Work Phone: POC Specific [place], Urine 1.010 1.005 - 1.035 [facility] Work Phone: POC Urobilinogen, Urine 0.2 0.2, 1.0 EU/DL [facility] Work Phone: [facility] Work Phone: URINALYSIS REFLEXon 12-31-19 25 Appearance (U) CLEAR Normal CLEAR [facility] Comment on above: Order Comment: FASTI NG:UNKNOWN FASTING: UNKNOWN Performed By: #### 7 909 #### [facility] [place] [address] Testing Coordinator: Jean Pierre Whitehead MD Bilirubin Ql (U) Negative Normal NEGATIVE [facility] Comment on above: Order Comment: FASTI NG:UNKNOWN FASTING: UNKNOWN Performed By: #### 7 909 #### [facility] [place] [address] Testing Coordinator: Jean Pierre Whitehead MD Color (U) YELLOW Normal YELLOW [facility] Comment on above: Order Comment: FASTI NG:UNKNOWN FASTING: UNKNOWN Performed By: #### 7 909 #### [facility] [place] [address] Testing Coordinator: Jean Pierre Whitehead MD Glucose Ql (U) Negative Normal NEGATIVE [facility] Comment on above: Order Comment: FASTI NG:UNKNOWN FASTING: UNKNOWN Performed By: #### 7 909 #### [facility] [place] [address] Testing Coordinator: Jean Pierre Whitehead MD Ketones Ql (U) Negative Normal NEGATIVE [facility] Comment on above: Order Comment: FASTI NG:UNKNOWN FASTING: UNKNOWN Performed By: #### 7 909 #### [facility] [place] [address] Testing Coordinator: Jean Pierre Whitehead MD Leukocyte esterase Test strip Ql (U) Negative Normal NEGATIVE [facility] Comment on above: Order Comment: FASTI NG:UNKNOWN FASTING: UNKNOWN Performed By: #### 7 909 #### [facility] of [address], [address] [place] [address] Testing Coordinator: Jean Pierre Whitehead MD Nitrite Ql (U) Negative Normal NEGATIVE [facility] Comment on above: Order Comment: FASTI NG:UNKNOWN FASTING: UNKNOWN Performed By: #### 7 909 #### [facility] [address], [address] [place] [address] Testing Coordinator: Jean Pierre Whitehead MD OCCULT BLOOD Negative Normal NEGATIVE [facility] Comment on above: Order Comment: FASTI NG:UNKNOWN FASTING: UNKNOWN Performed By: #### 7 909 #### [facility] [address], [address] [place] [address] Testing Coordinator: Jean Pierre Whitehead MD pH (U) 7.5 [pH] Normal 5.0-8.0 [facility] Comment on above: Order Comment: FASTI NG:UNKNOWN FASTING: UNKNOWN Performed By: #### 7 909 #### [facility] [address], [address] [place] [address] Testing Coordinator: Jean Pierre Whitehead MD Protein Ql (U) Negative Normal NEGATIVE [facility] Comment on above: Order Comment: FASTI NG:UNKNOWN FASTING: UNKNOWN Performed By: #### 7 909 #### [facility] [address], [address] [place] [address] Testing Coordinator: Jean Pierre Whitehead MD Specific gravity (U) [Rel density] 1.005 Normal 1.001-1.035 [facility] Comment on above: Order Comment: FASTI NG:UNKNOWN FASTING: UNKNOWN Performed By: #### 7 909 #### [facility] [address], [address] [place] [address] Testing Coordinator: Jean Pierre Whitehead MD Choriogonadotropin.beta subu niton 12-26-2024 [place] 3103 m[IU]/mL High <5 [facility] Comment on above: Order Comment: Total HCG measurement is performed using the [employer] Access Immunoassay which detects intact HCG and free beta HCG subunit. This test is not indicated for use as a tumor marker. HCG testing is performed using a different test methodology at [facility]. Direct result comparison should only be made [...] #### 2 1198-7 #### JORGE L DACOSTA ([id number]) [facility] ([facility]) [address] [place] [address] Choriogonadotropin.beta subu niton 12-22-2024 HCG.beta subunit Qn 696 m[IU]/mL High <5 [facility] Comment on above: Order Comment: Total HCG measurement is performed using the [employer] Access Immunoassay which detects intact HCG and free beta HCG subunit. This test is not indicated for use as a tumor marker. HCG testing is performed using a different test methodology at [facility] than other [facility]. Direct result comparison should only be made [...] #### 2 1198-7 #### JORGE L DACOSTA ([id number]) [facility] ([facility]) [address] [place], [place] [address] ED Prov Noteon 11-22-2024 ED Prov Note [...] are negative. PAST HISTORY Past Medical History: @[facility]@ Past Surgical History: has a past surgical [...] for 1 dose . Follow-up: Ayaka Doss, SYRUP FILTERER [address] [facility] Physician [place] [address] In 2 days Final Impression: 1. Allergic reaction, initial encounter (Please note that portions of this note were completed with a voice recognition program. Efforts were made to edit the dictations but occasionally words are mis-transcribed.) Ryan Guerra MD 11/22/24 1214 AUTHENTICATED BY KEAGAN CROCKETT 11/22/2024 12:14:40 Normal [facility] POC , URINE - RALSo n 11-22-2024 Beta HCG ( test) Ql (U) Negative Normal Negative [facility] Comment on above: Order Comment: Negat ernie: Dilute urine specimens, as indicated by a low specific gravity (<1.010) may not contain representitive levels of hCG. If is still suspected, a serum test or repeat urine test using a first morning urine specimen should be considered. POC URINALYSIS DIPSTICK,AUTO - RALSon 11-22-2024 POC BILIRUBIN, URINE Negative Normal Negative [facility] POC BLOOD, URINE Negative Normal Negative [facility] POC GLUCOSE, URINE Negative Normal Negative [facility] POC KETONES, URINE Negative Normal Negative [facility] POC LEUKOCYTE ESTERASE, URINE Negative Normal Negative [facility] POC NITRITE, URINE Negative Normal Negative [facility] POC PH, URINE 6.0 Normal 5.0-7.0 [facility] POC PROTEIN, URINE Negative Normal Negative [facility] POC SPECIFIC GRAVITY 1.010 Normal 1.005-1.025 [facility] POC UROBILINOGEN 0.2 mg/dL Normal < 2.0 [facility] Abdomen/Pelvis without Conto n 11-05-2024 Abdomen/Pelvis without Cont [facility] Imaging Services [address] [place], [place] [id number] Abdomen/Pelvis without Cont MR#: [id number] Acct: [id number] Name: KM STRANGE Rep #: [id number] : 1995 F 29 From: Vic Dykes DO PCP: CARLA Plascencia Status: REG ER Study: Abdomen/Pelvis without Cont Date of Exam: 01/24 Exam# [id number] Ordering Dr: Daniel Schneider DO PROCEDURE: ABDOMEN/PELVIS [...] CC: CARLA Doss; Dr. Daniel Schneider DO Vice President Quality Assurance: Signed Normal [facility] Absolute lymphocyte countOrd ered By: Daniel Schneider on 11-05-2024 Lymphocytes Auto (Unsp spec) [#/Vol] 1.08 10*3/uL 0.83-4.51 [facility] Absolute neutrophil countOrd ered By: Daniel Schneider on 11-05-2024 Neutrophils (Bld) [#/Vol] 1.8 10*3/uL Low 2.0-7.7 [facility] Anion gap in Serum or Plasma Ordered By: Daniel Schneider on 11-05-2024 Anion gap [Moles/Vol] 11 mmol/L 5-[address] [facility] Automated lymphocyte count a s percentage of total leukocytesOrdered By: Daniel Schneider on 11-05-2024 Lymphocytes/100 WBC Auto (Unsp spec) 32.5 % 19-41 [facility] BUN/creatinine ratioOrdered By: Daniel Schneider on 11-05-2024 Urea nitrogen/Creatinine [Mass ratio] 16.4 mg/mg 10-20 [facility] Basophil percentageOrdered B y: Daniel Schneider on 11-05-2024 Basophils/100 WBC (Bld) 0.0 % 0-1 [facility] Bilirubin Test strip Ql (U)O rdered By: Daniel Schneider on 11-05-2024 Bilirubin Ql (U) Negative Negative [facility] Bilirubin, totalOrdered By: Daniel Schneider on 11-05-2024 Bilirubin [Mass/Vol] 0.27 mg/dL 0.00-1.30 [facility] CBC W/Diff, Automatedon Absolute Lymph 1.08 X10 3/uL Normal 0.83-4.51 [facility] Comment on above: Performed By: #### L 501.2450, L100.0100, L500.4050 ####[facility] [address] [place], [address] Absolute Neut 1.8 X10 3/uL Low 2.0-7.7 [facility] Comment on above: Performed By: #### L 501.2450, L100.0100, L500.4050 ####[facility] [address] [place], [address] Basophils/100 WBC (Bld) 0.0 % Normal 0-1 [facility] Comment on above: Performed By: #### L 501.2450, L100.0100, L500.4050 ####[facility] [address] [place], [address] Eosinophils/100 WBC (Bld) 1.8 % Normal 0-5 [facility] Comment on above: Performed By: #### L 501.2450, L100.0100, L500.4050 ####[facility] [address] [place], [address] Erythrocyte distribution width (RBC) [Ratio] 11.9 % Normal 11.6-14.6 [facility] Comment on above: Performed By: #### L 501.2450, L100.0100, L500.4050 ####[facility] [address] [place], [address] Hematocrit (Bld) [Volume fraction] 38.3 % Normal 37-47 [facility] Comment on above: Performed By: #### L 501.2450, L100.0100, L500.4050 ####[facility] [address] [place], [address] Hemoglobin (Bld) [Mass/Vol] 13.8 g/dL Normal 12.0-15.0 [facility] Comment on above: Performed By: #### L 501.2450, L100.0100, L500.4050 ####[facility] [address] [place], [address] IG% 0.600 Normal 0.0-0.9 [facility] Comment on above: Result Comment: IG% - Immature Granulocytes (promyelocytes, myelocytes and metamyelocytes) > 1% indicates that a LEFT SHIFT is Present. Performed By: #### L 501.2450, L100.0100, L500.4050 ####[facility] [address] [place], [address] Lymphocytes/100 WBC (Bld) 32.5 % Normal 19-41 [facility] Comment on above: Performed By: #### L 501.2450, L100.0100, L500.4050 ####[facility] [address] [place], [address] MCH (RBC) [Entitic mass] 30.9 pg Normal 27.0-32.0 [facility] Comment on above: Performed By: #### L 501.2450, L100.0100, L500.4050 ####[facility] [address] [place], [address] MCHC (RBC) [Mass/Vol] 36.0 g/dL Normal 32-[address] [facility] Comment on above: Performed By: #### L 501.2450, L100.0100, L500.4050 ####[facility] [address] [place], [address] MCV (RBC) [Entitic vol] 85.7 fL Normal 81-99 [facility] Comment on above: Performed By: #### L 501.2450, L100.0100, L500.4050 ####[facility] [address] [place], [address] Monocytes/100 WBC (Bld) 9.9 % Normal 0-10 [facility] Comment on above: Performed By: #### L 501.2450, L100.0100, L500.4050 ####[facility] [address] [place], [address] Neutrophils/100 WBC (Bld) 55.2 % Normal 47-70 [facility] Comment on above: Performed By: #### L 501.2450, L100.0100, L500.4050 ####[facility] [address] [place], [address] Nucleated RBC (Bld) [#/Vol] 0 10*3/uL Normal 0-5 [facility] Comment on above: Performed By: #### L 501.2450, L100.0100, L500.4050 ####[facility] [address] [place], [address] Platelet mean volume (Bld) [Entitic vol] 10.4 fL Normal 6.2-12.0 [facility] Comment on above: Performed By: #### L 501.2450, L100.0100, L500.4050 ####[facility] [address] [place], [address] Platelets (Bld) [#/Vol] 160 10*3/uL Normal 150-450 [facility] Comment on above: Performed By: #### L 501.2450, L100.0100, L500.4050 ####[facility] [address] [place], [address] RBC (Bld) [#/Vol] 4.47 10*6/uL Normal 4.2-5.4 [facility] Comment on above: Performed By: #### L 501.2450, L100.0100, L500.4050 ####[facility] [address] [place], [address] RDW SD 36.7 fl Normal 35.1-43.9 [facility] Comment on above: Performed By: #### L 501.2450, L100.0100, L500.4050 ####[facility] [address] [place], [address] WBC (Bld) [#/Vol] 3.3 10*3/uL Low 4.4-11.0 [facility] Comment on above: Performed By: #### L 501.2450, L100.0100, L500.4050 ####[facility] [address] [place], [address] Carbon dioxide, total [Moles /volume] in Central venous bloodOrdered By: Daniel Schneider on 11-05-2024 CO2 [Moles/Vol] 22.1 mmol/L 21.0-32.0 [facility] Chloride assayOrdered By: Swetha Schneider on 11-05-2024 Chloride [Moles/Vol] 104 mmol/L 98-108 [facility] Comprehensive Metabolic Prof ilon 11-05-2024 Albumin [Mass/Vol] 4.3 g/dL Normal 3.5-5.0 [facility] Comment on above: Performed By: #### L 501.2450, L100.0100, L500.4050 ####[facility] [address] [place], [address] Albumin/Globulin [Mass ratio] 1.8 {ratio} Normal 0.9-2.4 [facility] Comment on above: Performed By: #### L 501.2450, L100.0100, L500.4050 ####[facility] [address] [place], [address] ALK PHOS 59 U/L Normal 35-104 [facility] Comment on above: Performed By: #### L 501.2450, L100.0100, L500.4050 ####[facility] [address] [place], [address] ALT [Catalytic activity/Vol] 15 U/L Normal <=34 [facility] Comment on above: Performed By: #### L 501.2450, L100.0100, L500.4050 ####[facility] [address] [place], [address] AST [Catalytic activity/Vol] 20 U/L Normal <=31 [facility] Comment on above: Performed By: #### L 501.2450, L100.0100, L500.4050 ####[facility] [address] [place], [address] Bilirubin [Mass/Vol] 0.27 mg/dL Normal 0.00-1.30 [facility] Comment on above: Performed By: #### L 501.2450, L100.0100, L500.4050 ####[facility] [address] [place], [address] BUN/CRE 16.4 RATIO Normal 10-20 [facility] Comment on above: Performed By: #### L 501.2450, L100.0100, L500.4050 ####[facility] [address] [place], [address] Calcium [Mass/Vol] 9.0 mg/dL Normal 7.6-11.0 [facility] Comment on above: Performed By: #### L 501.2450, L100.0100, L500.4050 ####[facility] [address] [place], [address] Chloride [Moles/Vol] 104 mmol/L Normal 98-108 [facility] Comment on above: Performed By: #### L 501.2450, L100.0100, L500.4050 ####[facility] [address] [place], [address] CO2 [Moles/Vol] 22.1 mmol/L Normal 21.0-32.0 [facility] Comment on above: Performed By: #### L 501.2450, L100.0100, L500.4050 ####[facility] [address] [place], [address] Creatinine [Mass/Vol] 0.68 mg/dL Low 0.70-1.[address] [facility] Comment on above: Performed By: #### L 501.2450, L100.0100, L500.4050 ####[facility] [address] [place], [address] ECRCL 97.03 ml/min Normal 50-250 [facility] Comment on above: Performed By: #### L 501.2450, L100.0100, L500.4050 ####[facility] [address] [place], [address] GAP 11 Normal 5-15 [facility] Comment on above: Performed By: #### L 501.2450, L100.0100, L500.4050 ####[facility] [address] [place], [address] GFR/1.73 sq M.predicted among non-blacks MDRD (S/P/Bld) [Vol rate/Area] 122 mL/min/{1.73_m2} Normal >60 [facility] Comment on above: Result Comment: mL/m in/1.73m2 CKD-EPI Creatinine Equation (2020) Performed By: #### L 501.2450, L100.0100, L500.4050 ####[facility] [address] [place], [address] Globulin (S) [Mass/Vol] 2.4 g/dL Normal 2.2-4.2 [facility] Comment on above: Performed By: #### L 501.2450, L100.0100, L500.4050 ####[facility] [address] [place], [address] Glucose [Mass/Vol] 80 mg/dL Normal 70-99 [facility] Comment on above: Performed By: #### L 501.2450, L100.0100, L500.4050 ####[facility] [address] [place], [address] Potassium [Moles/Vol] 3.6 mmol/L Normal 3.3-5.[address] [facility] Comment on above: Performed By: #### L 501.2450, L100.0100, L500.4050 ####[facility] [address] [place], [address] Sodium [Moles/Vol] 138 mmol/L Normal 133-145 [facility] Comment on above: Performed By: #### L 501.2450, L100.0100, L500.4050 ####[facility] [address] [place], [address] T PROT 6.7 g/dL Normal 5.9-8.4 [facility] Comment on above: Performed By: #### L 501.2450, L100.0100, L500.4050 ####[facility] [address] [place], [address] Urea nitrogen [Mass/Vol] 11 mg/dL Normal 4-19 [facility] Comment on above: Performed By: #### L 501.2450, L100.0100, L500.4050 ####[facility] [address] [place], [address] Emergency Department Summary on 11-05-2024 Emergency Department Summary [facility] Medical Records Department [address] [place] [address] Emergency Department Summary 11/05/24 MR#: [id number] Acct: [id number] Name: KM STRANGE Rep #: [id number] : 1995 29 From: Daniel Schneider DO PCP: CARLA Plascencia Status:REG ER Location: ED [...] Oxygen Delivery Method Room Air Room Air [facility] MDM MDM Narrative Medical decision making [...] History obtained from others: family Consults: none [facility] Narrative: Patient was hemodynamically stable, afebrile [...] Urine pregn (more content not included)... Normal [facility] Eosinophil percentageOrdered By: Daniel Schneider on 11-05-2024 Eosinophils/100 WBC (Bld) 1.8 % 0-5 [facility] Epithelial cells.squamous LM Ql (Urine sed)Ordered By: Daniel Schneider on 11-05-2024 Epithelial cells.squamous LM.HPF (Urine sed) [#/Area] 0 /[HPF] 5-10 [facility] Erythrocyte distribution wid th (RBC) [Ratio]Ordered By: Daniel Schneider on 11-05-2024 Erythrocyte distribution width (RBC) [Entitic vol] 36.7 fL 35.1-43.9 [facility] Erythrocyte distribution wid th ratioOrdered By: Daniel Schneider on 11-05-2024 Erythrocyte distribution width (RBC) [Ratio] 11.9 % 11.6-14.6 [facility] Erythrocyte distribution wid th standard deviationOrdered By: Daniel Schneider on 11-05-2024 Erythrocyte distribution width (RBC) [Ratio] 36.7 fl 35.1-43.9 [facility] Estimation of creatinine byron aranceOrdered By: Daniel Schneider on 11-05-2024 Estimated Creatinine Clearance Calc 97.03 ml/min 50-250 [facility] GFR/1.73 sq M.predicted ricardo g non-blacks MDRD (S/P/Bld) [Vol rate/Area]Ordered By: Daniel Schneider on 11-05-2024 Estimated GFR (MDRD) Non-Af Amer 122 >60 [facility] Comment on above: mL/min/1.73m2 CKD-EP I Creatinine Equation (2020) Glomerular filtration rate ( GFR) estimation/1.73 sq m using serum, plasma, or whole bOrdered By: Daniel Schneider on 11-05-2024 GFR/1.73 sq M.predicted among non-blacks MDRD (S/P/Bld) [Vol rate/Area] 122 mL/min/{1.73_m2} >60 [facility] Comment on above: mL/min/1.73m2 CKD-EP I Creatinine Equation (2020) Glucose Ql (U)Ordered By: christ Schneider on 11-05-2024 Urine Glucose (UA) Normal mg/dl Normal [facility] Hematocrit Auto (Bld) [Volum e fraction]Ordered By: Daniel Schneider on 11-05-2024 Hematocrit (Bld) [Volume fraction] 38.3 % 37-47 [facility] Hemoglobin measurementOrdere d By: Daniel Schneider on 11-05-2024 Hemoglobin (Bld) [Mass/Vol] 13.8 g/dL 12.0-15.0 [facility] Immature granulocytes/100 WB C Auto (Bld)Ordered By: Daniel Schneider on 11-05-2024 Immature granulocytes/100 WBC (Bld) 0.600 % 0.0-0.9 [facility] Comment on above: IG% - Immature Granu locytes (promyelocytes, myelocytes and metamyelocytes) > 1% indicates that a LEFT SHIFT is Present. Ketones Test strip Ql (U)Ord ered By: Daniel Schneider on 11-05-2024 Ketones Ql (U) Negative Negative [facility] Laboratory - Chemistry and C hemistry - challengeOrdered By: Daniel Schneider on 11-05-2024 AST [Catalytic activity/Vol] 20 U/L <32 [facility] Lipaseon 11-05-2024 Lipase [Catalytic activity/Vol] 31 U/L Normal 13-75 [facility] Comment on above: Result Comment: Damián mitchell note: LIPASE revised reference range effective 22. New Lipase methodology. Expected to produce lower values than the previous assay method. NEW Reference Range: 13 - 75 U/L Performed By: #### L 501.2450, L100.0100, L500.4050 ####[facility] [address] [place], [address] Lipase measurementOrdered By : Daniel Schneider on 11-05-2024 Lipase [Catalytic activity/Vol] 31 U/L 13-75 [facility] Comment on above: Please note:LIPASE r evised reference range effective 22. New Lipase methodology. Expected to produce lower values than the previous assay method. NEW Reference Range: 13 - 75 U/L Lymphocytes Auto (Unsp spec) [#/Vol]Ordered By: Daniel Schneider on 11-05-2024 Lymphocytes (Bld) [#/Vol] 1.08 10*3/uL 0.83-4.51 [facility] Lymphocytes/100 WBC Auto (Un sp spec)Ordered By: Daniel Schneider on 11-05-2024 Lymphocytes/100 WBC (Bld) 32.5 % 19-41 [facility] MCV (mean corpuscular volume ) determinationOrdered By: Daniel Schneider on 11-05-2024 MCV (RBC) [Entitic vol] 85.7 fL 81-99 [facility] Mean corpuscular hemoglobin (MCH) determinationOrdered By: Daniel Schneider on 11-05-2024 MCH (RBC) [Entitic mass] 30.9 pg 27.0-32.0 [facility] Mean corpuscular hemoglobin concentration (MCHC) determinationOrdered By: Daniel Schneider on 11-05-2024 MCHC (RBC) [Mass/Vol] 36.0 g/dL 32-[address] [facility] Mean platelet volume determi nationOrdered By: Daniel Schneider on 11-05-2024 Platelet mean volume (Bld) [Entitic vol] 10.4 fL 6.2-12.0 [facility] Microscopic analysis of urin e for red blood cells (RBC)Ordered By: Daniel Schneider on 11-05-2024 Microscopic analysis of urine for red blood cells (RBC) 0 SEEN /hpf 0-5 [facility] Urine RBC 0 SEEN /hpf 0-5 [facility] Monocyte percentageOrdered B y: Daniel Schneider on 11-05-2024 Monocytes/100 WBC (Bld) 9.9 % 0-10 [facility] Mucus LM Ql (Urine sed)Order ed By: Daniel Schneider on 11-05-2024 Mucus Ql (Urine sed) 0 SEEN /hpf [facility] Neutrophil percentageOrdered By: Daniel Schneider on 11-05-2024 Neutrophils/100 WBC (Bld) 55.2 % 47-70 [facility] Nitrite Test strip Ql (U)Ord ered By: Daniel Schneider on 11-05-2024 Nitrite Ql (U) Negative Negative [facility] Nucleated red blood cell per centageOrdered By: Daniel Schneider on 11-05-2024 Nucleated RBC/100 WBC (Bld) [Ratio] 0 % 0-5 [facility] Platelet countOrdered By: Swetha Schneider on 11-05-2024 Platelets (Bld) [#/Vol] 160 10*3/uL 150-450 [facility] Potassium (Unsp spec) [Mass/ Vol]Ordered By: Daniel Schneider on 11-05-2024 Potassium [Moles/Vol] 3.6 mmol/L 3.3-5.[address] [facility] Potassium measurement (mass/ volume)Ordered By: Daniel Schneider on 11-05-2024 Potassium (Unsp spec) [Mass/Vol] 3.6 mmol/L 3.3-5.1 [facility] ,Urineon 11-05-2024 Beta HCG ( test) Ql (U) Negative Normal [facility] Comment on above: Result Comment: Very dilute urine specimens, as indicated by a low specific gravity, may not contain energy conservation representative levels of hCG. If is still suspected, a first morning urine specimen should be collected 48 hours later and tested. Performed By: #### L 400.0001, L400.7600 #### [facility] [address] [place], [place], [id number] Protein Test strip Ql (U)Ord ered By: Daniel Schneider on 11-05-2024 Protein Ql (U) Negative Negative [facility] RBC Auto (Bld) [#/Vol]Ordere d By: Daniel Schneider on 11-05-2024 RBC (Bld) [#/Vol] 4.47 10*6/uL 4.2-5.4 [facility] Serum creatinine measurement (mass/volume)Ordered By: Daniel Schneider on 11-05-2024 Creatinine [Mass/Vol] 0.68 mg/dL Low 0.70-1.[address] [facility] Serum globulin measurementOr dered By: Daniel Schneider on 11-05-2024 Globulin (S) [Mass/Vol] 2.4 g/dL 2.2-4.2 [facility] Serum glucose measurement (m ass/volume)Ordered By: Daniel Schneider on 11-05-2024 Glucose [Mass/Vol] 80 mg/dL 70-99 [facility] Serum or plasma alanine phoenix otransferase (ALT) measurementOrdered By: Daniel Schneider on 11-05-2024 ALT [Catalytic activity/Vol] 15 U/L <35 [facility] Serum or plasma albumin saulo urement (mass/volume)Ordered By: Daniel Schneider on 11-05-2024 Albumin [Mass/Vol] 4.3 g/dL 3.5-5.0 [facility] Serum or plasma albumin/glob ulin mass ratioOrdered By: Daniel Schneider on 11-05-2024 Albumin/Globulin [Mass ratio] 1.8 {ratio} 0.9-2.4 [facility] Serum or plasma alkaline diego sphatase measurementOrdered By: Daniel Schneider on 11-05-2024 ALP [Catalytic activity/Vol] 59 U/L 35-104 [facility] Serum or plasma calcium saulo urement (mass/volume)Ordered By: Daniel Schneider on 11-05-2024 Calcium [Mass/Vol] 9.0 mg/dL 7.6-11.0 [facility] Serum or plasma urea nitroge n measurement (mass/volume)Ordered By: Daniel Schneider on 11-05-2024 Urea nitrogen [Mass/Vol] 11 mg/dL 4-19 [facility] Sodium levelOrdered By: Pat Schneider on 11-05-2024 Sodium [Moles/Vol] 138 mmol/L 133-145 [facility] Squamous epithelial cells de tection in urine sediment by light microscopyOrdered By: Daniel Schneider on 11-05-2024 Epithelial cells.squamous LM Ql (Urine sed) 0 SEEN /hpf 12-09 [facility] Total proteinOrdered By: Claudia Schneider on 11-05-2024 Protein [Mass/Vol] 6.7 g/dL 5.9-8.4 [facility] Urinalysis, Completeon 11-05 BACTERIA 0 SEEN Normal None Seen [facility] Comment on above: Order Comment: CLEAN CATCH Performed By: #### L 400.0001, L400.7600 #### [facility] [address] [place], [address] EPI,SQUAMOUS 0 SEEN Normal 12-09 [facility] Comment on above: Order Comment: CLEAN CATCH Performed By: #### L 400.0001, L400.7600 #### [facility] [address] [place], [address] Mucus Ql (Urine sed) 0 SEEN Normal [facility] Comment on above: Order Comment: CLEAN CATCH Performed By: #### L 400.0001, L400.7600 #### [facility] [address] [place], [address] RBC 0 SEEN Normal 0-5 [facility] Comment on above: Order Comment: CLEAN CATCH Performed By: #### L 400.0001, L400.7600 #### [facility] [address] [place], [address] WBC 0 SEEN Normal 0-5 [facility] Comment on above: Order Comment: CLEAN CATCH Performed By: #### L 400.0001, L400.7600 #### [facility] [address] [place], [address] Urine blood detectionOrdered By: Daniel Schneider on 11-05-2024 Urine Occult Blood Negative Negative [facility] Urine clarityOrdered By: Claudia Schneider on 11-05-2024 Clarity (U) Clear Clear [facility] Urine color determinationOrd ered By: Daniel Schneider on 11-05-2024 Color (U) Yellow Yellow [facility] Urine glucose detectionOrder ed By: Daniel Schneider on 11-05-2024 Glucose Ql (U) Normal mg/dl Normal [facility] Urine leukocyte esterase det ection by dipstickOrdered By: Daniel Schneider on 11-05-2024 Leukocyte esterase Test strip Ql (U) Negative Negative [facility] Urine pHOrdered By: Daniel coyle on 11-05-2024 pH (U) 7.0 [pH] 5.0 - 8.0 [facility] Urine testOrdered By: Daniel Schneider on 11-05-2024 HCG ( test) Ql (U) Negative [facility] Comment on above: Very dilute urine sp ecimens, as indicated by a low specificgravity, may not contain energy conservation representative levels of hCG. If is still suspected, a first morning urinespecimen should be collected 48 hours later and tested. Urine sediment bacteria coun t by microscopy (number/high power field)Ordered By: Daniel Schneider on 11-05-2024 Bacteria LM.HPF (Urine sed) [#/Area] 0 /[HPF] None Seen [facility] Urine specific gravity measu rementOrdered By: Daniel Schneider on 11-05-2024 Specific gravity (U) [Rel density] 1.010 1.002-1.030 [facility] Urine urobilinogen measureme ntOrdered By: Daniel Schneider on 11-05-2024 Urobilinogen Ql (U) Normal mg/dl Normal [facility] Urobilinogen Ql (U)Ordered B y: Daniel Schneider on 11-05-2024 Urine Urobilinogen Normal mg/dl Normal [facility] White blood cell (WBC) count Ordered By: Daniel Schneider on 11-05-2024 WBC (Bld) [#/Vol] 3.3 10*3/uL Low 4.4-11.0 [facility] White blood cell countOrdere d By: Daniel Schneider on 11-05-2024 Urine WBC 0 SEEN /hpf 0-5 [facility] White blood cell count 0 SEEN /hpf 0-5 [facility] XR CHEST 2 VIEWSon XR CHEST 2 VIEWS Interpreted By: Hood Melendez, STUDY: XR CHEST 2 VIEWS; 09/22/2024 3:55 pm INDICATION: Signs/Symptoms:rule out pneumonia. ,J40 Bronchitis, not specified as acute or chronic COMPARISON: 06/29/2013 ACCESSION NUMBER(S): [id number] ORDERING CLINICIAN: AYAKA DOSS FINDINGS: CARDIOMEDIASTINAL SILHOUETTE: Cardiomediastinal silhouette is normal in size and configuration. LUNGS: Lungs are clear. ABDOMEN: No remarkable upper abdominal findings. BONES: No acute osseous changes. IMPRESSION: 1. No evidence of acute cardiopulmonary process. MACRO: None Signed by: Hood Carmen 09/23/2024 8:00 AM Dictation workstation: [id number] [facility] CBC (INCLUDES DIFF/PLT)on Basophils (Bld) [#/Vol] 0.022 10*3/uL Normal 0-200 [facility] Comment on above: Performed By: #### 6 399, [address], [address] #### [facility] [address], [address] [place] [address] Testing Coordinator: Jean Pierre Whitehead MD Basophils/100 WBC (Bld) 0.3 % Normal [facility] Comment on above: Performed By: #### 6 399, , [address] #### [facility] of [address], [address] [place] [address] Testing Coordinator: Jean Pierre Whitehead MD Eosinophils (Bld) [#/Vol] 0.058 10*3/uL Normal 15-500 [facility] Comment on above: Performed By: #### 6 399, , [address] #### [facility] of [place] [address] Testing Coordinator: Jean Pierre Whitehead MD Eosinophils/100 WBC (Bld) 0.8 % Normal [facility] Comment on above: Performed By: #### 6 399, , 65[address] #### [facility] of [place] [address] Testing Coordinator: Jean Pierre Whitehead MD Erythrocyte distribution width (RBC) [Ratio] 11.9 % Normal 11.0-15.0 [facility] Comment on above: Performed By: #### 6 399, , 03136 #### [facility] of [place] [address] Testing Coordinator: Jean Pierre Whitehead MD Hematocrit (Bld) [Volume fraction] 40.9 % Normal 35.0-45.0 [facility] Comment on above: Performed By: #### 6 399, , 80695 #### [facility] of [place] [address] Testing Coordinator: Jean Pierre Whitehead MD Hemoglobin (Bld) [Mass/Vol] 13.7 g/dL Normal 11.7-15.5 [facility] Comment on above: Performed By: #### 6 399, , 80224 #### [facility] of [place] [address] Testing Coordinator: Jean Pierre Whitehead MD Lymphocytes (Bld) [#/Vol] 1.145 10*3/uL Normal 850-3900 [facility] Comment on above: Performed By: #### 6 399, , 78501 #### [facility] [place] [address] Testing Coordinator: Jean Pierre Whitehead MD Lymphocytes/100 WBC (Bld) 15.9 % Normal [facility] Comment on above: Performed By: #### 6 399, , 62448 #### [facility] [place] [address] Testing Coordinator: Jean Pierre Whitehead MD MCH (RBC) [Entitic mass] 30.8 pg Normal 27.0-33.0 [facility] Comment on above: Performed By: #### 6 399, , 01971 #### [facility] [place] [address] Testing Coordinator: Jean Pierre Whitehead MD MCHC (RBC) [Mass/Vol] [...] condition. Performed By: #### 6 399, , 13177 #### [facility] [place] [address] Testing Coordinator: Jean Pierre Whitehead MD MCV (RBC) [Entitic vol] 91.9 fL Normal 80.0-100.0 [facility] Comment on above: Performed By: #### 6 399, , 25982 #### [facility] [place] [address] Testing Coordinator: Jean Pierre Whitehead MD Monocytes (Bld) [#/Vol] 0.374 10*3/uL Normal 200-950 [facility] Comment on above: Performed By: #### 6 399, , 18758 #### [facility] of [address], [address] [place] [address] Testing Coordinator: Jean Pierre Whitehead MD Monocytes/100 WBC (Bld) 5.2 % Normal [facility] Comment on above: Performed By: #### 6 399, , 13513 #### [facility] of [address], [address] [place] [address] Testing Coordinator: Jean Pierre Whitehead MD Neutrophils (Bld) [#/Vol] 5.602 10*3/uL Normal 7918-9951 [facility] Comment on above: Performed By: #### 6 399, , 04550 #### [facility] of [place] [address] Testing Coordinator: Jean Pierre Whitehead MD Neutrophils/100 WBC (Bld) 77.8 % Normal [facility] Comment on above: Performed By: #### 6 399, , 04577 #### [facility] of [address], [address] [place] [address] Testing Coordinator: Jean Pierre Whitehead MD Platelet mean volume (Bld) [Entitic vol] 11.1 fL Normal 7.5-12.5 [facility] Comment on above: Performed By: #### 6 399, , 43083 #### [facility] of [place] [address] Testing Coordinator: Jean Pierre Whitehead MD Platelets (Bld) [#/Vol] 173 10*3/uL Normal 140-400 [facility] Comment on above: Performed By: #### 6 399, , 69150 #### [facility] of [address], [address] [place] [address] Testing Coordinator: Jean Pierre Whitehead MD RBC (Bld) [#/Vol] 4.45 10*6/uL Normal 3.80-5.10 [facility] Comment on above: Performed By: #### 6 399, , 48344 #### [facility] [place] [address] [address] Testing Coordinator: Jean Pierre Whitehead MD WBC (Bld) [#/Vol] 7.2 10*3/uL Normal 3.8-10.8 [facility] Comment on above: Performed By: #### 6 399, 45393, 21890 #### [facility] [place] [address] Testing Coordinator: Jean Pierre Whitehead MD COMPREHENSIVE METABOLIC PANE L W/ANION GAPon 09-21-2024 Albumin [Mass/Vol] 4.7 g/dL Normal 3.6-5.1 [facility] Comment on above: Order Comment: FASTI NG:NO FASTING: NO Performed By: #### 6 399, 79198, 08152 #### [facility] [place] [address] Testing Coordinator: Jean Pierre Whitehead MD ALP [Catalytic activity/Vol] 48 U/L Normal 31-125 [facility] Comment on above: Order Comment: FASTI NG:NO FASTING: NO Performed By: #### 6 399, 56666, 22731 #### [facility] [place] [address] Testing Coordinator: Jean Pierre Whitehead MD ALT [Catalytic activity/Vol] 12 U/L Normal 6-29 [facility] Comment on above: Order Comment: FASTI NG:NO FASTING: NO Performed By: #### 6 399, 42846, 70763 #### [facility] [place] [address] Testing Coordinator: Jean Pierre Whitehead MD AST [Catalytic activity/Vol] 15 U/L Normal 10-30 [facility] Comment on above: Order Comment: FASTI NG:NO FASTING: NO Performed By: #### 6 399, 27312, 18646 #### [facility] [place] [address] Testing Coordinator: Jean Pierre Whitehead MD Bilirubin [Mass/Vol] 0.5 mg/dL Normal 0.2-1.2 [facility] Comment on above: Order Comment: FASTI NG:NO FASTING: NO Performed By: #### 6 399, , 70460 #### [facility] [place] [address] Testing Coordinator: Jean Pierre Whitehead MD Calcium [Mass/Vol] 9.4 mg/dL Normal 8.6-10.2 [facility] Comment on above: Order Comment: FASTI NG:NO FASTING: NO Performed By: #### 6 399, , 70297 #### [facility] [address], [address] [place] [address] Testing Coordinator: Jean Pierre Whitehead MD Chloride [Moles/Vol] 103 mmol/L Normal 98-110 [facility] Comment on above: Order Comment: FASTI NG:NO FASTING: NO Performed By: #### 6 399, , 87591 #### [facility] [place] [address] Testing Coordinator: Jean Pierre Whitehead MD CO2 [Moles/Vol] 26 mmol/L Normal 20-32 [facility] Comment on above: Order Comment: FASTI NG:NO FASTING: NO Performed By: #### 6 399, , 00758 #### [facility] [place] [address] Testing Coordinator: Jean Pierre Whitehead MD Creatinine [Mass/Vol] 0.61 mg/dL Normal 0.50-0.[address] [facility] Comment on above: Order Comment: FASTI NG:NO FASTING: NO Performed By: #### 6 399, , 77745 #### [facility] [place] [address] Testing Coordinator: Jean Pierre Whitehead MD ELECTROLYTE BALANCE 8 mmol/L (calc) Normal 7-17 [facility] Comment on above: Order Comment: FASTI NG:NO FASTING: NO Performed By: #### 6 399, , 11855 #### [facility] [place] [address] Testing Coordinator: Jean Pierre Whitehead MD GFR/1.73 sq M.predicted among non-blacks MDRD (S/P/Bld) [Vol rate/Area] 126 mL/min/{1.73_m2} Normal > OR = 60 [facility] Comment on above: Order Comment: FASTI NG:NO FASTING: NO Performed By: #### 6 399, , 12371 #### [facility] [place] [address] Testing Coordinator: Jean Pierre Whitehead MD Glucose [Mass/Vol] 83 mg/dL Normal 65-139 [facility] Comment on above: Order Comment: FASTI NG:NO FASTING: NO Result Comment: Non-fasting reference interval Performed By: #### 6 399, , 87108 #### [facility] [place] [address] Testing Coordinator: Jean Pierre Whitehead MD Potassium [Moles/Vol] 3.7 mmol/L Normal 3.5-5.3 [facility] Comment on above: Order Comment: FASTI NG:NO FASTING: NO Performed By: #### 6 399, , 10968 #### [facility] [place] [address] Testing Coordinator: Jean Pierre Whitehead MD Protein [Mass/Vol] 6.9 g/dL Normal 6.1-8.1 [facility] Comment on above: Order Comment: FASTI NG:NO FASTING: NO Performed By: #### 6 399, , 48972 #### [facility] [place] [address] Testing Coordinator: Jean Pierre Whitehead MD Sodium [Moles/Vol] 137 mmol/L Normal 135-146 [facility] Comment on above: Order Comment: FASTI NG:NO FASTING: NO Performed By: #### 6 399, , 44364 #### [facility] [place] [address] Testing Coordinator: Jean Pierre Whitehead MD Urea nitrogen [Mass/Vol] 12 mg/dL Normal 7-25 [facility] Comment on above: Order Comment: FASTI NG:NO FASTING: NO Performed By: #### 6 399, 91075, 59428 #### [facility] [address], [address] [place] [address] Testing Coordinator: Jean Pierre Whitehead MD HCG, TOTAL, QLon 09-21-2024 HCG, TOTAL, QL Negative Normal See Note: [facility] Comment on above: Result Comment: Refe rence Range: Reference Range Non-: Negative : Positive Performed By: #### 8 435 #### [facility] [address], [address] [place] [address] Testing Coordinator: Jean Pierre Whitehead MD TSH W/REFLEX TO FT4on 2024 TSH W/REFLEX TO FT4 3.78 mIU/L Normal [facility] Comment on above: Result Comment: Refe rence Range > or = 20 Years 0.40-4.50 Ranges First trimester 0.26-2.66 Second trimester 0.55-2.73 Third trimester 0.43-2.91 Performed By: #### 6 399, 01322, 52580 #### [facility] [address], [address] [place] [address] Testing Coordinator: Jean Pierre Whitehead MD POCT SARS-COV-2/FLU/RSV PCR SYMPTOMATIC manually resultedon 09-09-2024 FLUAV RNA SHANAE+probe Ql (Resp) Not detected Not Detected [facility] Work Phone: FLUBV RNA SHANAE+probe Ql (Resp) Not detected Not Detected [facility] Work Phone: Interpretation and review of laboratory results Normal [facility] Work Phone: RSV RNA SHANAE+probe Ql (Resp) Not detected Not Detected [facility] Work Phone: SARS-CoV-2 (COVID-19) RNA SHANAE+probe Ql (Resp) Not detected Not Detected [facility] Work Phone: [facility] Work Phone: US RENAL COMPLETEon 08-31-19 US RENAL COMPLETE Interpreted By: Gold Stephen, STUDY: US RENAL COMPLETE; 08/31/2024 8:17 am INDICATION: Signs/Symptoms:urgency, bilaeral flank pain. ,R39.9 Unspecified symptoms and signs involving the genitourinary system COMPARISON: None. ACCESSION NUMBER(S): [id number] ORDERING CLINICIAN: AYAKA DOSS TECHNIQUE: Multiple images [...] Gold Quiñones 09/01/2024 5:56 AM Dictation workstation: [id number] [facility] POCT UA Automated manually r esultedon 08-30-2024 Appearance (U) Clear Clear [facility] Work Phone: Glucose Test strip (U) [Mass/Vol] Negative NEGATIVE mg/dl [facility] Work Phone: Hemoglobin Ql (U) Negative NEGATIVE [facility] Work Phone: Leukocyte esterase Test strip Ql (U) Negative NEGATIVE [facility] Work Phone: Nitrite Ql (U) Negative NEGATIVE [facility] Work Phone: pH (U) 7.0 [pH] No Reference Range Established [facility] Work Phone: POC Bilirubin, Urine Negative NEGATIVE [facility] Work Phone: POC Color, Urine Yellow Straw, Yellow, Light-Yellow [facility] Work Phone: POC Ketones, Urine Negative NEGATIVE mg/dl [facility] Work Phone: POC Protein, Urine Negative NEGATIVE mg/dl [facility] Work Phone: POC Specific [place], Urine 1.020 1.005 - 1.035 [facility] Work Phone: POC Urobilinogen, Urine 0.2 0.2, 1.0 EU/DL [facility] Work Phone: [facility] Work Phone: Bacteria identifiedon 2023 Bacteria identified Cx Nom (U) Test: Urine Culture Specimen Source: Clean Catch/Voided Specimen Type: Urine Specimen Date: 06/01/2024 132 Result Date: 06/03/2024825 Result Status: Final result Abnormal: No Resulting Lab: [facility] [address] [place] [address] CULTURE Normal genitourinary juan daniel [facility] Comment on above: Performed By: #### 6 30-4 #### MARKEL Lazar ([id number]) [facility] ([facility]) [address] [place] [address] Blood type and Indirect anti body screen panel (Bld)on 04-28-2024 ABO group Nom (Bld) A [facility] Blood group antibody screen Ql Negative [facility] D Ag Ql (Bld) Positive [facility] ABO group Nom (Bld) A Normal [facility] Comment on above: Performed By: #### 3 4532-2 #### BHUMI OLIVERA ([id number]) [facility] ([facility]) [address] [place] [address] Blood group antibody screen Ql Negative [facility] Comment on above: Performed By: #### 3 4532-2 #### BHUMI OLIVERA ([id number]) [facility] ([facility]) [address] [facility] [facility] [place] [address] [place] D Ag Ql (Bld) Positive Normal [facility] Comment on above: Performed By: #### 3 4532-2 #### BHUMI JAROD ([id number]) [facility] ([facility]) [address] [place] [address] US HCG ( test) Ql (U)o n 04-28-2024 Preg Test, Ur Negative Negative [facility] Work Phone: [facility] Work Phone: Surgical pathology studyon 0 04-28-2024 Surgical pathology study Pathology report.total SEE COMMENT Surgical Pathology Case: [id number] Authorizing Provider: Jayden Taylor MD Collected: 04/28/2024 0856 Ordering Location: [facility] OR Received: 04/28/2024 1144 Pathologist: Tere Osborne [...] and submitted entirely in 3 cassettes. JLL [facility] Comment on above: Order Comment: Pre-o p diagnosis: Endometriosis determined by laparoscopy [N80.9] VERAB/VERIFY ABORHon 024 ABO group Nom (Bld) A Normal [facility] Comment on above: Order Comment: Thi s is for confirming/verifying history of ABORh on file for transfusion of blood products. If this is not for transfusion, please order an ABO/RH [[id number]]. If you have any questions or unsure what to order, please call the blood bank. Performed By: #### V ERAB #### BHUMI OLIVERA ([id number]) [facility] ([facility]) [address] [place] [address] [place] [address] D Ag Ql (Bld) Positive [facility] Comment on above: Order Comment: Thi s is for confirming/verifying history of ABORh on file for transfusion of blood products. If this is not for transfusion, please order an ABO/RH [[id number]]. If you have any questions or unsure what to order, please call the blood bank. Performed By: #### V ERAB #### BHUMI OLIVERA ([id number]) [facility] ([facility]) [address] [facility] [place] [address] US VERIFY ABO/Rh Group Teston 0 04-28-2024 ABO group Nom (Bld) A [facility] D Ag Ql (Bld) Positive [facility] Basic metabolic 2000 panelon 04-19-2024 Anion gap [Moles/Vol] 10 mmol/L Normal 10-20 [facility] Comment on above: Performed By: #### 2 4321-2 #### BHUMI OLIVERA ([id number]) [facility] ([facility]) [address] [place] [address] Calcium [Mass/Vol] 9.4 mg/dL Normal 8.6-10.3 [facility] Comment on above: Performed By: #### 2 4321-2 #### BHUMI OLIVERA ([id number]) [facility] ([facility]) [address] [place] [address] Chloride [Moles/Vol] 106 mmol/L Normal 98-107 [facility] Comment on above: Performed By: #### 2 4321-2 #### BHUMI OLIVERA ([id number]) [facility] ([facility]) [address] [place] [address] CO2 [Moles/Vol] 26 mmol/L Normal 21-32 [facility] Comment on above: Performed By: #### 2 4321-2 #### BHUMI OLIVERA ([id number]) [facility] ([facility]) [address] [place] [address] Creatinine [Mass/Vol] 0.74 mg/dL Normal 0.50-1.05 [facility] Comment on above: Performed By: #### 2 4321-2 #### BHUMI OLIVERA ([id number]) [facility] ([facility]) [address] [place] [address] GFR/1.73 sq M.predicted MDRD (S/P/Bld) [Vol rate/Area] mL/min/{1.73_m2} Normal >60 [facility] Comment on above: Result Comment: Calc ulations of estimated GFR are performed using the 2020 CKD-EPI Study Refit equation without the race variable for the IDMS-Traceable creatinine methods. https://jasn.asnjournals.org/content/early/ASN.73970 93089 Performed By: #### 2 4321-2 #### BHUMI OLIVERA ([id number]) [facility] ([facility]) [address] [place] [address] Glucose [Mass/Vol] 85 mg/dL Normal 74-99 [facility] Comment on above: Performed By: #### 2 4321-2 #### BHUMI OLIVERA ([id number]) [facility] ([facility]) [address] [place] [address] Potassium [Moles/Vol] 4.0 mmol/L Normal 3.5-5.3 [facility] Comment on above: Performed By: #### 2 4321-2 #### BHUMI OLIVERA ([id number]) [facility] ([facility]) [address] [place] [address] Sodium [Moles/Vol] 138 mmol/L Normal 136-145 [facility] Comment on above: Performed By: #### 2 4321-2 #### BHUMI OLIVERA ([id number]) [facility] ([facility]) [address] [place] [address] Urea nitrogen [Mass/Vol] 17 mg/dL Normal 6-23 [facility] Comment on above: Performed By: #### 2 4321-2 #### BHUMI OLIVERA ([id number]) [facility] ([facility]) [address] [place] [address] Hemoglobin and Hematocrit pa joyce (Bld)on 04-19-2024 Hematocrit (Bld) [Volume fraction] 39.9 % Normal 36.0-46.0 [facility] Comment on above: Performed By: #### 2 4360-0 #### BHUMI OLIVERA ([id number]) [facility] ([facility]) [address] [place] [address] Hemoglobin (Bld) [Mass/Vol] 14.3 g/dL Normal 12.0-16.0 [facility] Comment on above: Performed By: #### 2 4360-0 #### BHUMI OLIVERA ([id number]) [facility] ([facility]) [address] [place] [address] LMPon 02-15-2023 Last menstrual period start date [id number] [facility] [employer] Work Phone: [facility] - Office Visiton 01-30 [facility] - Office Visit Provider Florentin christine Km is a 27-year-old who comes in for 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 Patient seen a pain specialist patient will follow-up in 1 year or sooner if she becomes Chief Complaint Patient here today for annual exam. She has no concerns. LMP: 02/08/2023. Last pap 01/14/2022 NIL. History of Present IllnessDamelchor is a 27-year-old who comes in for routine CHILD DEVELOPMENT DIRECTOR exam. Patient has chronic pelvic pain and [...] DAILY WITH FOOD. Vitals Vital Signs Recorded: [id number] 10:24AM Jzvqqmyp621 Tlkjjyuas80 Height4 ft 11 in Bmznse440 lb 2 oz BMI Emgdvihbtp61.86 kg/m2 BSA Calculated1.47 [id number] Physical Exam Constitutional: Healthy appearing young female. Head and Face: No obvious lesions. Neck: Supple without adenopathy or masses. Cardiovascular: Regular rate and rhythm. Pulmonary (more content not included)... Normal [facility] No Panel Informationon 02-01 Normal [facility] [address] Work Phone: Radiologyon 02-01-2023 US Gallbladder Normal [facility] [address] Work Phone: SPINE, LUMBOSACRAL MIN 4 VIE WSon 02-01-2023 SPINE, LUMBOSACRAL MIN 4 VIEWS Patient Name: KM HUNT STUDY: Lumbar Spine, 5 views. INDICATION: low back pain. COMPARISON: CT of the abdomen and pelvis 11/19/2022 ACCESSION NUMBER(S): [id number] ORDERING CLINICIAN: SUKH POLLOCK FINDINGS: Mild grade 1 L5-S1 anterolisthesis. Disc heights are maintained. Mild facet arthropathy at L5-S1. Vertebral body heights are preserved. Unilateral left L5 pars defects better visualized on the previous CT from 11/19/2022 IMPRESSION: 1. As above. Electronically signed by: SINAN BENOIT MD [facility] GALLBLADDERon 02-01-2023 US GALLBLADDER Patient Name: KM HUNT STUDY: US GALLBLADDER; 02/01/2023 12:29 pm INDICATION: nausea and vomiting. COMPARISON: None. ACCESSION NUMBER(S): [id number] ORDERING CLINICIAN: SUKH POLLOCK TECHNIQUE: Multiple grayscale [...] Electronically signed by: KIRSTIN HI MD Normal [facility]KER - Office Visiton 05 [facility] - Office Visit Diagnoses/Problems Assessed Anxiety and [...] PAP 01/14/2022 WNL; LMP 12/08/2022; G0 [facility] EDUCATION AND OUTREACH COORDINATOR Adult Risk ScreeningThere are no spiritual/cultural practices/values/needs [...] pain (s (more content not included)... Normal [employer] Tobacco Screening.on Adult depression screening assessment No [facility]OBGYN-Ri s [facility] [address] Work Phone: Fall risk assessment a) No falls within the last year NT-BMZGY-Seg man [address] Work Phone: Last menstrual period start date 08Dec2022 VY-VACOC-Zef man [address] Work Phone: Tobacco use status CPHS b) No JZ-QDAQT-Xus man [address] Work Phone: Office Visit (UROGYN-FPMRS)o [...] Discussed trying PFPT with Irene Rodriguez in [place]. Patient is amenable to this. PFPT requisition [...] pelvic cecilio (more content not included)... Normal [employer] Tobacco Screening.on 023 Adult depression screening assessment Yes [facility] Work Phone: Fall risk assessment a) No falls within the last year [facility] Work Phone: Last menstrual period start date 09Nov2022 [facility] Work Phone: Tobacco use status CPHS b) No [facility] Work Phone: Cult, Urineon 11-24-2022 Bacteria identified Cx Nom (U) [facility] Work Phone: LMPon 11-24-2022 Last menstrual period start date [id number] [facility] [address] Work Phone: [facility] - Office Visiton 11-01 [facility] - Office Visit Provider Florentin christine Km [...] she have an evaluation done by your station air traffic control specialist and if that yields no answers then [...] UA MICROSCOPICon 11-24-2022 BACTERIA 1+ /HPF Abnormal [facility] Comment on above: Performed By: #### U AMIC #### [address] [address] Mucus Ql (Urine sed) 1+ /LPF Normal [facility] Comment on above: Performed By: #### U AMIC #### [address] [address] RBC (U) [#/Vol] /uL Normal 0-5 [facility] Comment on above: Performed By: #### U AMIC #### [address] [address] SQUAMOUS EPITH. CELLS 1 /HPF Normal [facility] Comment on above: Performed By: #### U AMIC #### [address] [address] WBC (U) [#/Vol] /uL Normal 0-5 [facility] Comment on above: Performed By: #### U AMI #### [facility] [address] [place] [address] URINE CULTURE,BACTERIALon URINE CULTURE,BACTERIAL PATIENT: KM HUNT LOCATION: [id number] BILL#: [id number] : 89 AGE: SEX: F ORDERED BY: SHARDA CHÁVEZ SOURCE: URINE COLLECTED: 11/24/22 10:17 ANTIBIOTICS AT TREVER.: RECEIVED : 11/24/22 23:58 SITE: Clean Catch/Voided R E S U L T S URINE CULTURE,BACTERIAL FINAL 11/25/22 19:09 NO GROWTH Normal [facility] Comment on above: Performed By: #### U RINC #### [facility] [address] [place] [address] Urinalysis, Microscopicon Urinalysis, Microscopic 1+ Abnormal [facility] [address] Work Phone: [phone] Urinalysis, Microscopic 1 {/HPF} [facility] [address] Work Phone: [phone] Urinalysis, Microscopic <1 0-5 [facility] [address] Work Phone: [phone] TRICHOMONAS,NUCLEIC ACID DET ECTIONon 11-20-2022 TRICHOMONAS VAGINALIS Negative Normal Negative [facility] Comment on above: Result Comment: The APTIMA Trichomonas vaginalis assay is FDA-approved for testing on female endocervical swabs, vaginal swabs, and ThinPrep liquid pap samples. Performance characteristics for Trichomonas vaginalis on specific ytr-DYV-xkdtrlbm sample types (female and male urine and male urethral swabs) have been validated by [facility]. This laboratory is certified by CLIA to perform high complexity testing. Samples from all other sites are not validated for this method. Performance characteristics for Trichomonas Vaginalis testing on urine samples has been validated by [facility]. Testing on this sample type is not FDA-approved, but such approval is not necessary. This laboratory is certified by CLIA to perform high complexity testing. Performed By: #### T SIOMARA #### [facility] [address] [place] [address] BASIC METABOLIC PANELon 04-2 -2022 Anion gap [Moles/Vol] 13 mmol/L Normal 10 - 20 [facility] Comment on above: Performed By: #### B MP #### [address] [address] Calcium [Mass/Vol] 10.2 mg/dL Normal 8.6 - 10.3 [facility] Comment on above: Performed By: #### B MP #### [address] [address] Chloride [Moles/Vol] 103 mmol/L Normal 98 - 107 [facility] Comment on above: Performed By: #### B MP #### [address] [address] Creatinine [Mass/Vol] 0.80 mg/dL Normal 0.50 - 1.05 [facility] Comment on above: Performed By: #### B MP #### [address] [address] eGFR FEMALE >90 Normal >90 [facility] Comment on above: Result Comment: CALC ULATIONS OF ESTIMATED GFR ARE PERFORMED USING THE 2020 CKD-EPI STUDY REFIT EQUATION WITHOUT THE RACE VARIABLE FOR THE IDMS-TRACEABLE CREATININE METHODS. https://jasn.asnjournals.org/content//ASN.64889 69606 Performed By: #### B MP #### [address] [address] Glucose [Mass/Vol] 76 mg/dL Normal 74 - 99 [facility] Comment on above: Performed By: #### B MP #### [address] [address] HCO3 (Bld) [Moles/Vol] 27 mmol/L Normal 21 - 32 [facility] Comment on above: Performed By: #### B MP #### [address] [address] Potassium [Moles/Vol] 3.5 mmol/L Normal 3.5 - 5.3 [facility] Comment on above: Performed By: #### B MP #### [address] [address] Sodium [Moles/Vol] 139 mmol/L Normal 136 - 145 [facility] Comment on above: Performed By: #### B MP #### [address] [address] Urea nitrogen [Mass/Vol] 18 mg/dL Normal 6 - 23 [facility] Comment on above: Performed By: #### B MP #### [place] [id number] CBC AND DIFFERENTIALon 11-19 % AUTOMATED IMMATURE GRAN 0.1 % Normal 0.0 - 0.9 [facility] Comment on above: Result Comment: Radhika ture Granulocyte Count (IG) includes promyelocytes, myelocytes and metamyelocytes but does not include bands. Percent differential counts (%) should be interpreted in the context of the absolute cell counts (cells/L). Performed By: #### C BCDF #### [place] [id number] Basophils (Bld) [#/Vol] 0.05 10*3/uL Normal 0.00 - 0.10 [facility] Comment on above: Performed By: #### C BCDF #### [address] [address] Basophils/100 WBC (Bld) 0.7 % Normal 0.0 - 2.0 [facility] Comment on above: Performed By: #### C BCDF #### [address] [address] Eosinophils (Bld) [#/Vol] 0.16 10*3/uL Normal 0.00 - 0.70 [facility] Comment on above: Performed By: #### C BCDF #### [address] [address] Eosinophils/100 WBC (Bld) 2.2 % Normal 0.0 - 6.0 [facility] Comment on above: Performed By: #### C BCDF #### [address] [address] Erythrocyte distribution width (RBC) [Ratio] 11.4 % Low 11.5 - 14.5 [facility] Comment on above: Performed By: #### C BCDF #### [address] [address] Hematocrit (Bld) [Volume fraction] 40.8 % Normal 36.0 - 46.0 [facility] Comment on above: Performed By: #### C BCDF #### [address] [address] Hemoglobin (Bld) [Mass/Vol] 14.1 g/dL Normal 12.0 - 16.0 [facility] Comment on above: Performed By: #### C BCDF #### [address] [address] Lymphocytes (Bld) [#/Vol] 3.30 10*3/uL Normal 1.20 - 4.80 [facility] Comment on above: Performed By: #### C BCDF #### [address] [address] Lymphocytes/100 WBC (Bld) 46.0 % Normal 13.0 - 44.0 [facility] Comment on above: Performed By: #### C BCDF #### [address] [address] MCHC (RBC) [Mass/Vol] 34.6 g/dL Normal 32.0 - 36.0 [facility] Comment on above: Performed By: #### C BCDF #### [address] [address] MCV (RBC) [Entitic vol] 86 fL Normal 80 - 100 [facility] Comment on above: Performed By: #### C BCDF #### [address] [address] Monocytes (Bld) [#/Vol] 0.39 10*3/uL Normal 0.10 - 1.00 [facility] [facility] Comment on above: Performed By: #### C BCDF #### [address] [address] Monocytes/100 WBC (Bld) 5.4 % Normal 2.0 - 10.0 [facility] Comment on above: Performed By: #### C BCDF #### [address] [address] Neutrophils (Bld) [#/Vol] 3.26 10*3/uL Normal 1.20 - 7.70 [facility] Comment on above: Result Comment: Perc ent differential counts (%) should be interpreted in the context of the absolute cell counts (cells/L). Performed By: #### C BCDF #### [address] [address] Neutrophils/100 WBC (Bld) 45.6 % Normal 40.0 - 80.0 [facility] Comment on above: Performed By: #### C BCDF #### [address] [address] Platelets (Bld) [#/Vol] 309 10*3/uL Normal 150 - 450 [facility] Comment on above: Performed By: #### C BCDF #### [address] [address] RBC 4.74 x10E12/L Normal 4.00 - 5.20 [facility] Comment on above: Performed By: #### C BCDF #### [address] [address] WBC (Bld) [#/Vol] 7.2 10*3/uL Normal 4.4 - 11.3 [facility] Comment on above: Performed By: #### C BCDF #### [address] [address] [address] ABDOMEN AND PELVIS W IV C [facility] 11-19-2022 CT ABDOMEN AND PELVIS W IV CONTRAST Patient Name: KM HUNT STUDY: CT ABDOMEN AND PELVIS W IV CONTRAST; 11/19/2022 7:00 pm INDICATION: llq abd pain . COMPARISON: 01/01/2022 ACCESSION NUMBER(S): [id number] ORDERING CLINICIAN: PAOLA PICKARD TECHNIQUE: Contiguous axial [...] Electronically signed by: JOSE RILEY MD Normal [facility] CT Abdomen and Pelvis with I V Contraston 11-19-2022 CT Abdomen and Pelvis W contrast IV Normal [facility] [employer] Work Phone: [phone] Complete Blood Count + Diffe rentialon 11-19-2022 Basophils/100 WBC (Bld) 0.7 % 0.0 - 2.0 [facility] [place] [employer] Work Phone: [phone] Erythrocyte distribution width (RBC) [Ratio] 11.4 % below low threshold See Below [facility] [employer] Work Phone: [phone] Comment on above: Reference Range: 11. 5 - 14.5 Hematocrit (Bld) [Volume fraction] 40.8 % See Below [facility] [employer] Work Phone: [phone] Comment on above: Reference Range: 36. 0 - 46.0 Hemoglobin (Bld) [Mass/Vol] 14.1 g/dL See Below [facility] [employer] Work Phone: [phone] Comment on above: Reference Range: 12. 0 - 16.0 Lymphocytes/100 WBC (Bld) 46.0 % See Below [employer] [employer] Work Phone: [phone] Comment on above: Reference Range: 13. 0 - 44.0 MCHC (RBC) [Mass/Vol] 34.6 g/dL See Below [facility] [place] [employer] Work Phone: [phone] Comment on above: Reference Range: 32. 0 - 36.0 MCV (RBC) [Entitic vol] 86 fL 80 - 100 [facility] [address] Work Phone: [phone] Monocytes/100 WBC (Bld) 5.4 % 2.0 - 10.0 [facility] [employer] Work Phone: [phone] Neutrophils/100 WBC (Bld) 45.6 % See Below [facility] [address] Work Phone: [phone] Comment on above: Reference Range: 40. 0 - 80.0 Platelets (Bld) [#/Vol] 309 10*3/uL 150 - 450 [facility] [place] [employer] Work Phone: [phone] RBC (Bld) [#/Vol] 4.74 {x10E12/L} See Below [facility] [employer] Work Phone: [phone] Comment on above: Reference Range: 4.0 0 - 5.20 WBC (Bld) [#/Vol] 7.2 10*3/uL 4.4 - 11.3 [facility] [employer] Work Phone: [phone] Complete Blood Count + Differential 0.05 {x10E9/L} See Below [facility] [place] [employer] Work Phone: [phone] Comment on above: Reference Range: 0.0 0 - 0.10 Complete Blood Count + Differential 0.16 {x10E9/L} See Below [facility] [place] [address] Work Phone: [phone] Comment on above: Reference Range: 0.0 0 - 0.70 Complete Blood Count + Differential 0.39 {x10E9/L} See Below [facility] [place] [address] Work Phone: [phone] Comment on above: Reference Range: 0.1 0 - 1.00 Complete Blood Count + Differential 3.30 {x10E9/L} See Below [facility] [place] [employer] Work Phone: [phone] Comment on above: Reference Range: 1.2 0 - 4.80 Complete Blood Count + Differential 3.26 {x10E9/L} See Below [facility] [employer] Work Phone: [phone] Comment on above: Reference Range: 1.2 0 - 7.70 Percent differential counts (%) should be interpreted in the context of the absolute cell counts (cells/L). Complete Blood Count + Differential 2.2 % 0.0 - 6.0 [facility] [employer] Work Phone: [phone] Complete Blood Count + Differential 0.1 % 0.0 - 0.9 [facility] [employer] Work Phone: [phone] Comment on above: Immature Granulocyte Count (IG) includes promyelocytes, myelocytes and metamyelocytes but does not include bands. Percent differential counts (%) should be interpreted in the context of the absolute cell counts (cells/L). GC + CHLAMYDIA BY AMPLIFIED DETECTIONon 11-19-2022 CHLAMYDIA TRACH.,AMPLIFIED Not detected Normal NOT DETECTED [facility] Comment on above: Performed By: #### G [facility] #### [place] [address] Lab Specimen Source Urine Normal [facility] Comment on above: Performed By: #### G [facility] #### [place] [address] Performed By: #### T SIOMARA #### [facility] [address] [place] [address] N.GONORRHEA,AMPLIFIED Not detected Normal NOT DETECTED [facility] Comment on above: Performed By: #### G [facility] #### [place] [address] GC + Chlamydia By Amplified Detectionon 11-19-2022 C. trachomatis rRNA SHANAE+probe Ql (Unsp spec) Not detected See Below [facility] [employer] Work Phone: Comment on above: Reference Range: NOT DETECTED N. gonorrhoeae rRNA SHANAE+probe Ql (Unsp spec) Not detected See Below [facility] [address] Work Phone: Comment on above: SOURCE: UrineReferen ce Range: NOT DETECTED HCG,URINEon 11-19-2022 Beta HCG ( test) Ql (U) Negative Normal Negative [facility] Comment on above: Performed By: #### U ARFX #### [address] [address] HEPATIC FUNCTION PANELon Albumin [Mass/Vol] 4.9 g/dL Normal 3.4 - 5.0 [facility] Comment on above: Performed By: #### H EPFP #### [address] [address] ALP [Catalytic activity/Vol] 53 U/L Normal 33 - 110 [facility] Comment on above: Performed By: #### H EPFP #### [address] [address] ALT [Catalytic activity/Vol] 25 U/L Normal 7 - 45 [facility] Comment on above: Result Comment: Sara ents treated with Sulfasalazine may generate falsely decreased results for ALT. Performed By: #### H EPFP #### [address] [address] AST [Catalytic activity/Vol] 22 U/L Normal 9 - 39 [facility] Comment on above: Performed By: #### H EPFP #### [address] [address] Bilirubin [Mass/Vol] 0.6 mg/dL Normal 0.0 - 1.2 [facility] Comment on above: Performed By: #### H EPFP #### [address] [address] Bilirubin.indirect [Mass/Vol] 0.1 mg/dL Normal 0.0 - 0.3 [facility] Comment on above: Performed By: #### H EPFP #### [address] [address] Protein [Mass/Vol] 7.6 g/dL Normal 6.4 - 8.2 [facility] Comment on above: Performed By: #### H EPFP #### [place] [id number] Hepatic Function Panelon Albumin BCP dye [Mass/Vol] 4.9 g/dL 3.4 - 5.0 [facility] [place] [employer] Work Phone: [phone] ALP [Catalytic activity/Vol] 53 U/L 33 - 110 [facility] [employer] Work Phone: [phone] ALT With P-5'-P [Catalytic activity/Vol] 25 U/L 7 - 45 [facility] [employer] Work Phone: [phone] Comment on above: Patients treated wit h Sulfasalazine may generate falsely decreased results for ALT. AST With P-5'-P [Catalytic activity/Vol] 22 U/L 9 - 39 [facility] [employer] Work Phone: [phone] Bilirubin [Mass/Vol] 0.6 mg/dL 0.0 - 1.2 [facility] [employer] Work Phone: [phone] Bilirubin.direct [Mass/Vol] 0.1 mg/dL 0.0 - 0.3 [facility] [employer] Work Phone: [phone] Protein [Mass/Vol] 7.6 g/dL 6.4 - 8.2 [facility] [employer] Work Phone: [phone] LIPASEon 11-19-2022 Lipase [Catalytic activity/Vol] 19 U/L Normal 9 - 82 [facility] Comment on above: Result Comment: Stephanie puncture immediately after or during the administration of Metamizole may lead to falsely low results. Testing should be performed immediately prior to Metamizole dosing. N-xzhbwj-n-benzoquinone imine (metabolite of Acetaminophen) will generate erroneously low results in samples for patients that have taken toxic doses of acetaminophen. Performed By: #### L IPAS #### [place] [id number] Laboratory - Chemistry and C hemistry - challengeon 11-19-2022 Anion gap [Moles/Vol] 13 mmol/L 10 - 20 [facility] [place] [address] Work Phone: [phone] Calcium [Mass/Vol] 10.2 mg/dL 8.6 - 10.3 [facility] [address] Work Phone: [phone] Chloride [Moles/Vol] 103 mmol/L 98 - 107 [facility] [address] Work Phone: [phone] CO2 [Moles/Vol] 27 mmol/L 21 - 32 [facility] [address] Work Phone: [phone] Creatinine [Mass/Vol] 0.80 mg/dL See Below [facility] [address] Work Phone: [phone] Comment on above: Reference Range: 0.5 0 - 1.05 Glucose [Mass/Vol] 76 mg/dL 74 - 99 [facility] [address] Work Phone: [phone] Potassium [Moles/Vol] 3.5 mmol/L 3.5 - 5.3 [facility] [address] Work Phone: [phone] Sodium [Moles/Vol] 139 mmol/L 136 - 145 [facility] [address] Work Phone: [phone] Urea nitrogen [Mass/Vol] 18 mg/dL 6 - 23 [facility] [address] Work Phone: [phone] Lipase, Serumon 11-19-2022 Lipase [Catalytic activity/Vol] 19 U/L 9 - 82 [facility] [address] Work Phone: [phone] Comment on above: Venipuncture immedia tely after or during the administration of Metamizole may lead to falsely low results. Testing should be performed immediately prior to Metamizole dosing. W-jhiahb-f-benzoquinone imine (metabolite of Acetaminophen) will generate erroneously low results in samples for patients that have taken toxic doses of acetaminophen. No Panel Informationon 11-19 Negative Negative [facility] [place] [employer] Work Phone: Comment on above: SOURCE: Urine The AP MADI Trichomonas vaginalis assay is FDA-approved for testing on female endocervical swabs, vaginal swabs, and ThinPrep liquid pap samples. Performance characteristics for Trichomonas vaginalis on specific gbs-BWV-mdvkbnna sample types (female and male urine and male urethral swabs) have been validated by [facility]. This laboratory is certified by CLIA to perform high complexity testing. Samples from all other sites are not validated for this method.Performance characteristics for Trichomonas Vaginalis testing on urine samples has been validated by [facility]. Testing on this sample type is not FDA-approved, but such approval is not necessary. This laboratory is certified by CLIA to perform high complexity testing. >90 >90 [facility] [place] [employer] Work Phone: Comment on above: CALCULATIONS OF MCKENNA MATED GFR ARE PERFORMED USING THE 2020 CKD-EPI STUDY REFIT EQUATION WITHOUT THE RACE VARIABLE FOR THE IDMS-TRACEABLE CREATININE METHODS.https://jasn.asnjournals.org/content/early//A SN.9125326134 Provider Note - ED v3on 04- Provider [...] made to minimize errors. Minor errors in rail washer may be present. Please call if questions.. [...] Immature G (more content not included)... Normal [facility] Risk Screen - Adult Emergenc yon [...] Learning Preferencesverbal instruction Cultural Considerationsnone Developmental Considerationsnone Scientologist Considerationsnone Learning Assessment (Other Learner): Learning Assessment (Other Learner): Other learner availableno Pressure Injury/TB/Substance: Pressure Injury: Pressure Injury Present on Admissionno Do you have a coughno Smoking Statusnever smoker Alcohol Useoccasionally Drug Usedenies Admission Risk Screen: Significant IndicatorsComplete CAGE: CAGE: Is this an injured patient at a Trauma Center ([facility]/[place] /[place]): no Electronic Signatures: Carmen Silva (CATRINA) (Signed 19-Nov-2022 17:05) Authored: Preferred Language, Patient Preferred Pharmacy, Advanced Directives, Family Violence Adult, Learning Assessment (Patient), Learning Assessment (Other Learner), Pressure Injury/TB/Substance, Pressure Injury, CAGE Last Updated: 19-Nov-2022 17:05 by Carmen Silva (CATRINA) [facility] Triage - EDon 11-19-2022 Triage - [...] Accompanied By: self Language: Spoken Language Preferred: Montenegrin CHIEF COMPLAINT KM HUNT is a Female [...] obeys commands Best Verbal Response: (V5) oriented Valmeyer Score: 15 Allergies: yes Mask applied: yes [...] 19-Nov-2022 17:04 by Carmen Silva (RN) Normal [facility] URINALYSIS WITH CULTURE IF I NDICATEDon 11-19-2022 Appearance (U) CLEAR Normal CLEAR [facility] Comment on above: Performed By: #### U ARFX #### [place] [address] Bilirubin Ql (U) Negative Normal NEGATIVE [facility] Comment on above: Performed By: #### U ARFX #### [place] [address] Color (U) Colorless Normal STRAW,YELLOW [facility] Comment on above: Performed By: #### U ARFX #### [place] [address] Glucose Ql (U) Negative Normal NEGATIVE [facility] Comment on above: Performed By: #### U ARFX #### [place] [address] Hemoglobin Ql (U) Negative Normal NEGATIVE [facility] Comment on above: Performed By: #### U ARFX #### [place] [address] Ketones Ql (U) 5(TRACE) Abnormal NEGATIVE [facility] Comment on above: Performed By: #### U ARFX #### [place] [address] Leukocyte esterase Test strip Ql (U) Negative Normal NEGATIVE [facility] Comment on above: Performed By: #### U ARFX #### [place] [address] Nitrite Ql (U) Negative Normal NEGATIVE [facility] Comment on above: Performed By: #### U ARFX #### [place] [address] pH (U) 7.0 [pH] Normal 5.0 - 8.0 [facility] Comment on above: Performed By: #### U ARFX #### [place] [address] Protein Ql (U) Negative Normal NEGATIVE [facility] Comment on above: Performed By: #### U ARFX #### [place] [address] Specific gravity (U) [Rel density] 1.004 Low 1.005 - 1.035 [facility] Comment on above: Performed By: #### U ARFX #### [address] [address] Urobilinogen (U) [Mass/Vol] mg/dL Normal 0.0 - 1.9 [facility] Comment on above: Performed By: #### U ARFX #### [address] [address] Color (U) Colorless See Below [facility] [employer] Work Phone: [phone] Comment on above: Reference Range: STR AW,YELLOW Glucose Ql (U) Negative NEGATIVE [facility] [place] [employer] Work Phone: [phone] Ketones Ql (U) 5(TRACE) Abnormal NEGATIVE [facility] [place] [employer] Work Phone: [phone] Leukocyte esterase Test strip Ql (U) Negative NEGATIVE [facility] [employer] Work Phone: [phone] pH (U) 7.0 [pH] 5.0 - 8.0 [facility] [employer] Work Phone: [phone] Protein (U) [Mass/Vol] Negative NEGATIVE [facility] [employer] Work Phone: [phone] RBC (U) [#/Vol] Negative NEGATIVE [facility] [facility] [employer] Work Phone: [phone] Specific gravity (U) [Rel density] 1.004 1 below low threshold See Below [facility] [employer] Work Phone: [phone] Comment on above: Reference Range: 1.0 05 - 1.035 URINALYSIS WITH CULTURE IF INDICATED Negative NEGATIVE [facility] [employer] Work Phone: [phone] URINALYSIS WITH CULTURE IF INDICATED <2.0 0.0 - 1.9 [facility] [employer] Work Phone: [phone] URINALYSIS WITH CULTURE IF INDICATED CLEAR CLEAR [facility] [employer] Work Phone: [phone] Urine Teston 11-19 HCG ( test) Ql (U) Negative Negative [facility] [employer] Work Phone: CORONAVIRUS 2019 BY PCRon SARS-CoV-2 (COVID-19) RNA SHANAE+probe Ql (Unsp spec) Not detected Normal Not Detected [facility] Comment on above: Result Comment: . This assay is designed to detect the ORF1a/b and E genes of SARS-CoV-2 via nucleic acid amplification. A Not Detected result does not preclude 2019-nCoV infection since the adequacy of sample collection and/or low viral burden may result in presence of viral nucleic acids below the clinical sensitivity of this test method. Fact sheet for providers: https://www.fda.gov/media/658140/download Fact sheet for patients: https://www.fda.gov/media/386460/download This test has received FDA Emergency Use Authorization (EUA) and has been verified for use by [facility] ([facility]). This test is only authorized for the duration of time that circumstances exist to justify the authorization of the emergency use of in vitro diagnostic tests for the detection of SARS-CoV-2 virus and/or diagnosis of COVID-19 infection under section 564(b)(1) of the Act, 21 U.S.C. 360bbb-3(b)(1), unless the authorization is terminated or revoked sooner. [facility] is certified under CLIA-88 as qualified to perform high complexity testing. Testing is performed in the [facility] laboratories located at [address] [place] [address]. Performed By: #### C OV19 #### [address] [place] [address] GROUP A STREP,PCRon 11-02-19 GROUP A STREP,PCR Not detected Normal Not Detected [facility] Comment on above: Result Comment: This test and its performance have been Validated by [facility] Laboratory using analyte specific reagents (ASR). It has not been cleared or approved by the U.S. Food and Drug Administration. The FDA has determined that such clearance or approval is not necessary. Performed By: #### G APC1 #### [facility] [address] [place] [address] CORONAVIRUS 2019 BY PCRon Lab Specimen Source Nasal, Nasopharyngeal Normal [facility] Comment on above: Performed By: #### C OV19 #### [facility] [address] [place] [address] Coronavirus 2019 RNA by PCR, Symptomaticon 10-31-2022 Coronavirus 2019 RNA by PCR, Symptomatic Not detected Normal See Below [facility] [address] Work Phone: Comment on above: SOURCE: Nasal, [...] this test method. Fact sheet for providers: https://www.fda.gov/media/115812/download Fact sheet for patients: https://www.fda.gov/media/405665/download This test has received FDA Emergency Use Authorization (EUA) and has been verified for use by [facility] ([facility]). This test is only authorized for the duration of time that circumstances exist to justify the authorization of the emergency use of in vitro diagnostic tests for the detection of SARS-CoV-2 virus and/or diagnosis of COVID-19 infection under section 564(b)(1) of the Act, 21 U.S.C. 360bbb-3(b)(1), unless the authorization is terminated or revoked sooner.[facility] is certified under CLIA-88 as qualified to perform high complexity testing. Testing is performed in the [facility] laboratories located at [address] [place] [id number]. GROUP A STREP, PCRon 023 S. pyogenes Ag Ql (Throat) Not detected See Below [facility] [address] Work Phone: Comment on above: SOURCE: ThroatRefere nce Range: Not Detected This test and its performance have been Validated by [facility] Laboratory using analyte specific reagents (ASR). It has not been cleared or approved by the U.S. Food and Drug Administration. The FDA has determined that such clearance or approval is not necessary. GROUP A STREP,PCRon 11-01-19 23 Lab Specimen Source Throat Normal [facility] Comment on above: Performed By: #### G APC1 #### [facility] [address] [place] [address] Provider Note - ED v3on 040 Provider [...] SIGNS: T PRBP SpO2O2(LPM) %FiO2 Method 31-Oct-2022 08:57:[id number]/76 98 MDM MDM/ED COURSE: This note was [...] taking Tylenol with some relief; no other mgsb-gmb-jsrrjem medications or home remedies for symptom management. [...] Musculoskeletal: Grossly normal; appropriate for age. Integumentary: [place], warm, dry, and intact. No rashes or skin discoloration appreciated. Good skin turgor. Neurologic: Alert and oriented, no gross deficits. Cognition and Speech: Oriented, Speech clear and coherent. Psychiatric: Cooperative, Appropriate mood & affect. MEDICA (more content not included)... Normal [facility] Office Visit (Internal Medic ine)on 09-21-2022 Follow-up visit Diagnoses/Problems Assessed Anxiety and depression (300.00,311) (F41.9,F32.A) Orders Anxiety and depression Start: Venlafaxine HCl - 37.5 MG Oral Tablet; take one tab po daily x1 week take one tab po bid thereafter Rx By: Sukh Pollock; Dispense: 0 Days ; #:60 Tablet; Refill: 1;For: Anxiety and depression; JAREK = N; Verified Transmission to [place] [address]; Last Updated By: [employer]; 09/21/2022 2:56:11 PM Asthma Renew: Levalbuterol Tartrate 45 MCG/ACT Inhalation Aerosol; TAKE 1 PUFF BY MOUTH EVERY 4 HOURS NEEDED Rx By: Sukh Pollock; Dispense: 0 Days ; #:1 X 15 GM Inhaler; Refill: 3;For: Asthma; JAREK = N; Sent To: [employer]; Last Updated By: Dejan Strange; 09/21/2022 2:51:28 PM Seasonal allergies Renew: Montelukast Sodium 10 MG Oral Tablet; take 1 tablet by mouth at bedtime Rx By: Sukh Pollock; Dispense: 30 Days ; #:30 Tablet; Refill: 5;For: Seasonal allergies; JAREK = N; [facility] [employer]; Last Updated By: [employer]; 09/21/2022 2:56:13 PM Patient Discussion/Summary Anxiety and [...] Screening.on 023 Adult depression screening assessment Yes [facility] Work Phone: Fall risk assessment a) No falls within the last year [facility] Work Phone: [phone] Tobacco use status [facility] b) No [facility] Work Phone: [phone] Office Visit (Internal Medic ine)on 07-02-2022 Follow-up visit Diagnoses/Problems Assessed Anxiety and depression (300.00,311) (F41.9,F32.A) Idiopathic urticaria (708.1) (L50.1) Candidiasis of vagina (112.1) (B37.31) Orders Anxiety and depression Start: buPROPion HCl ER (SR) 150 MG Oral Tablet Extended Release 12 Hour; Take 1 tablet twice daily Rx By: Sukh Pololck; Dispense: 30 Days ; #:60 Tablet; Refill: 11; For: Anxiety and depression; JAREK = N; Verified Transmission to [place] [address]; Last Updated By: [employer]; 07/02/2022 8:39:04 AM Candidiasis of vagina Start: Fluconazole 150 MG Oral Tablet; TAKE 1 TABLET 1 TIME ONLY Rx By: Sukh Pollock; Dispense: 0 Days ; #:1 Tablet; Refill: 1; For: Candidiasis of vagina; JAREK = N; Sent To: [facility] 144 Idiopathic urticaria Start: Famotidine 20 MG Oral Tablet (Pepcid); TAKE 1 TABLET EVERY 12 HOURS DAILY Rx By: Sukh Pollock; Dispense: 7 Days ; #:14 Tablet; Refill: 1; For: Idiopathic urticaria; JAREK = N; Verified Transmission to [place] [address]; Last Updated By: Nicole Keith; 07/02/2022 8:39:03 AM Start: predniSONE 20 MG Oral Tablet; TAKE 1 TABLET TWICE DAILY Rx By: Sukh Pollock; Dispense: 7 Days ; #:14 Tablet; Refill: 1; For: Idiopathic urticaria; JAREK = N; Verified Transmission to [facility]; Last Updated By: Nicole Keith; [...] tolerated well and offered no complaints. LOT# [id number] EXP 09/2022 [facility] [id number] 1 Amended By: Dejan Strange; Jul 02 [...] Family h (more content not included)... Normal [facility] Office Visit (Internal Medic ine)on 05-21-2022 Follow-up visit Diagnoses/Problems Assessed Anxiety and depression (300.00,311) (F41.9,F32.A) Panic attacks (300.01) (F41.0) Orders Panic attacks Start: Sertraline HCl - 50 MG Oral Tablet; take 1 tablet by mouth once daily Rx By: Sukh Pollock; Dispense: 30 Days ; #:30 Tablet; Refill: 11;For: Panic attacks; JAREK = N; Verified Transmission to [facility] 1918; Last Updated By: [employer]; 05/21/2022 4:39:06 PM Patient Discussion/Summary Anxiety and [...] 21May2022 04:2 (more content not included)... Normal [employer] Tobacco Screening.on 022 Adult depression screening assessment No [facility] Work Phone: Fall risk assessment a) No falls within the last year [facility] Work Phone: Tobacco use status CPHS a) Yes [facility] Work Phone: Office Visit (Internal [...] depression; JAREK = N; Verified Transmission to [facility] 1448; Last Updated By: [employer]; 04/22/2022 4:57:42 PM Panic attacks Start: ALPRAZolam 1 MG Oral Tablet; 1/2 or 1 tab bid prn panick attacks Rx By: Sukh Pollock; Dispense: 5 Days ; #:10 Tablet; Refill: 0;For: Panic attacks; JAREK = N; Verified Transmission to [facility] 1448; Msg to Pharmacy: F41.0; Last Updated By: [employer]; 04/22/2022 4:57:26 PM Psychophysiological insomnia Start: traZODone HCl - 50 MG Oral Tablet; take 1/2 or 1 tablet qhs for insomnia Rx By: Sukh Pollock; Dispense: 0 Days ; #:30 Tablet; Refill: 5;For: Psychophysiological insomnia; JAREK = N; Verified Transmission to [facility] 1448; Last Updated By: [employer]; 04/22/2022 4:57:33 PM Patient Discussion/Summary Anxiety and [...] and staying asleep. Patient is attempted several pbdx-bfo-axciovt remedies without improvement. Patient states there is [...] (V16.9) (Z80 (more content not included)... Normal [facility] Tobacco Screening.on 022 Adult depression screening assessment No [facility] Work Phone: [phone] Fall risk assessment a) No falls within the last year [facility] Work Phone: [phone] Tobacco use status [facility] b) No [facility] Work Phone: Tobacco Screening.on 022 Fall risk assessment a) No falls within the last year [facility] Work Phone: [phone] Tobacco use status [facility] b) No [facility]: [phone] Complete Blood Count + Diffe rentialon 01-28-2022 Basophils/100 WBC (Bld) 0.4 % 0.0 - 2.0 [facility] [address] DO Work Phone: [phone] Erythrocyte distribution width (RBC) [Ratio] 12.8 % See Below [facility] [facility] DO Work Phone: [phone] Comment on above: Reference Range: 11. 5 - 14.5 Hematocrit (Bld) [Volume fraction] 39.9 % See Below [facility] [facility] DO Work Phone: [phone] Comment on above: Reference Range: 36. 0 - 46.0 Hemoglobin (Bld) [Mass/Vol] 14.2 g/dL See Below [facility] [facility] DO Work Phone: [phone] Comment on above: Reference Range: 12. 0 - 16.0 Lymphocytes/100 WBC (Bld) 31.6 % See Below [facility] [facility] DO Work Phone: [phone] Comment on above: Reference Range: 13. 0 - 44.0 MCHC (RBC) [Mass/Vol] 35.6 g/dL See Below [facility] [facility] DO Work Phone: [phone] Comment on above: Reference Range: 32. 0 - 36.0 MCV (RBC) [Entitic vol] 88 fL 80 - 100 [facility] [address] DO Work Phone: [phone] Monocytes/100 WBC (Bld) 5.7 % 2.0 - 10.0 [facility] [address] DO Work Phone: [phone] Neutrophils/100 WBC (Bld) 60.0 % See Below [facility] [address] DO Work Phone: [phone] Comment on above: Reference Range: 40. 0 - 80.0 Platelets (Bld) [#/Vol] 184 10*3/uL 150 - 450 [facility] [address] DO Work Phone: [phone] RBC (Bld) [#/Vol] 4.56 {x10E12/L} See Below [facility] [facility] DO Work Phone: [phone] Comment on above: Reference Range: 4.0 0 - 5.20 WBC (Bld) [#/Vol] 7.2 10*3/uL 4.4 - 11.3 [facility] [address] DO Work Phone: [phone] Complete Blood Count + Differential 0.00 {x10E9/L} See Below [facility] [address] DO Work Phone: [phone] Comment on above: Reference Range: 0.0 0 - 0.10 Complete Blood Count + Differential 0.20 {x10E9/L} See Below [facility] [address] DO Work Phone: [phone] Comment on above: Reference Range: 0.0 0 - 0.70 Complete Blood Count + Differential 0.40 {x10E9/L} See Below [facility] [address] DO Work Phone: [phone] Comment on above: Reference Range: 0.1 0 - 1.00 Complete Blood Count + Differential 2.30 {x10E9/L} See Below [facility] [address] DO Work Phone: [phone] Comment on above: Reference Range: 1.2 0 - 4.80 Complete Blood Count + Differential 4.30 {x10E9/L} See Below [facility] [facility] [address] DO Work Phone: [phone] Comment on above: Reference Range: 1.2 0 - 7.70 Percent differential counts (%) should be interpreted in the context of the absolute cell counts (cells/L). Complete Blood Count + Differential 2.3 % 0.0 - 6.0 [facility] [facility] DO Work Phone: [phone] Complete Blood Count + Differential 0.1 {/100_WBC} [facility] [facility] DO Work Phone: [phone] Laboratory - Allergyon 01-28 A. alternata IgE Qn (S) <0.10 <0.35 -[facility] [address] DO Work Phone: [phone] Comment on above: SEE IMMUNOCAP INTERP .IGE A. fumigatus IgE Qn (S) <0.10 <0.35 -[facility] [address] DO Work Phone: [phone] Comment on above: SEE IMMUNOCAP INTERP .IGE Israeli house dust mite IgE Qn (S) 4.41 {KU/L} Abnormal <0.35 [facility] [address] DO Work Phone: [phone] Comment on above: SEE IMMUNOCAP INTERP .IGE [place] IgE Qn (S) <0.10 <0.35 [facility] [address] DO Work Phone: [phone] Comment on above: SEE IMMUNOCAP INTERP .IGE [place] grass IgE Qn (S) 0.10 {KU/L} <0.35 [facility] [address] DO Work Phone: [phone] Comment on above: SEE IMMUNOCAP INTERP .IGE Boxelder IgE Qn (S) <0.10 <0.35 [facility] [address] DO Work Phone: [phone] Comment on above: SEE IMMUNOCAP INTERP .IGE C. herbarum IgE Qn (S) <0.10 <0.35 [facility] [facility] [address] DO Work Phone: [phone] Comment on above: SEE IMMUNOCAP INTERP .IGE [place] IgE Qn (S) <0.10 <0.35 [facility] [facility] [address] DO Work Phone: [phone] Comment on above: SEE IMMUNOCAP INTERP .IGE Cat dander IgE Qn (S) 0.82 {KU/L} Abnormal <0.35 [facility] [facility] [address] DO Work Phone: [phone] Comment on above: SEE IMMUNOCAP INTERP .IGE Cockroach IgE Qn (S) <0.10 <0.35 [facility] [address] DO Work Phone: [phone] Comment on above: SEE IMMUNOCAP INTERP .IGE Common Pigweed IgE Qn (S) <0.10 <0.35 [facility] [address] DO Work Phone: [phone] Comment on above: SEE IMMUNOCAP INTERP .IGE [place] IgE Qn (S) <0.10 <0.35 [facility] [address] DO Work Phone: [phone] Comment on above: SEE IMMUNOCAP INTERP .IGE Dog dander IgE Qn (S) 0.20 {KU/L} <0.35 [facility] [address] DO Work Phone: [phone] Comment on above: SEE IMMUNOCAP INTERP .IGE Montene[place]in plantain IgE Qn (S) <0.10 <0.35 [facility] [address] DO Work Phone: [phone] Comment on above: SEE IMMUNOCAP INTERP .IGE house dust mite IgE Qn (S) 3.53 {KU/L} Abnormal <0.35 [facility] [address] DO Work Phone: [phone] Comment on above: SEE IMMUNOCAP INTERP .IGE [place] IgE Qn (S) <0.10 <0.35 [facility] [address] DO Work Phone: [phone] Comment on above: SEE IMMUNOCAP INTERP .IGE Maximus grass IgE Qn (S) 0.17 {KU/L} <0.35 [facility] [address] DO Work Phone: [phone] Comment on above: SEE IMMUNOCAP INTERP .IGE [place] blue grass IgE Qn (S) 2.98 {KU/L} Abnormal <0.35 [facility] [address] DO Work Phone: [phone] Comment on above: SEE IMMUNOCAP INTERP .IGE [place] IgE Qn (S) <0.10 <0.35 [facility] [address] DO Work Phone: [phone] Comment on above: SEE IMMUNOCAP INTERP .IGE P. notatum IgE Qn (S) <0.10 <0.35 [facility] [address] DO Work Phone: [phone] Comment on above: SEE IMMUNOCAP INTERP .IGE Pecan or [place] IgE Qn (S) 0.21 {KU/L} <0.35 [facility] [address] DO Work Phone: [phone] Comment on above: SEE IMMUNOCAP INTERP .IGE Saltwort IgE Qn (S) <0.10 <0.35 [facility] [address] DO Work Phone: [phone] Comment on above: SEE IMMUNOCAP INTERP .IGE Sheep [place] IgE Qn (S) <0.10 <0.35 [facility] [address] DO Work Phone: [phone] Comment on above: SEE IMMUNOCAP INTERP .IGE [place] IgE Qn (S) <0.10 <0.35 [facility] [address] DO Work Phone: [phone] Comment on above: SEE IMMUNOCAP INTERP .IGE Sb IgG Qn (S) 2.74 {KU/L} Abnormal <0.35 [facility] [address] DO Work Phone: [phone] Comment on above: SEE IMMUNOCAP INTERP .IGE Total IgE RAST Qn (S) 55.0 {KU/L} See Below [facility] [address] DO Work Phone: [phone] Comment on above: Reference Range: 0.0 - 214.0 Note: Omalizumab (Xolair, GeneMoovit; humanized IgG1 antihuman IgE Fc) treatment does not significantly interfere with the accuracy of total IgE on the ImmunoCAP (Polleverywhere) platform. J Allergy Clin Immunol 2006;117:759-66). Allergens, parasitic diseases, smoking, and alcohol consumption have been reported to increase levels of total IgE in serum. White [place] IgE Qn (S) <0.10 <0.35 [facility] [address] DO Work Phone: [phone] Comment on above: SEE IMMUNOCAP INTERP .IGE [place] IgE Qn (S) <0.10 <0.35 [facility] [address] DO Work Phone: [phone] Comment on above: SEE IMMUNOCAP INTERP .IGE White mulberry IgE Qn (S) <0.10 <0.35 [facility] [address] DO Work Phone: [phone] Comment on above: SEE IMMUNOCAP INTERP .IGE [place] IgE Qn (S) <0.10 <0.35 [facility] [address] DO Work Phone: Comment on above: SEE IMMUNOCAP INTERP .IGE No Panel Informationon 01-28 SEE COMMENT [facility] [address] DO Work Phone: [phone] Comment on above: REFERENCE RANGE (IMM UNOCAP) IGE KU/L CLASS INTERPRETATION < 0.10 0 BELOW DETECTION 0.10- 0.34 0/1 EQUIVOCAL 0.35- 0.69 1 LOW POSITIVE 0.70- 3.49 2 MODERATE POSITIVE 3.50- 17.49 3 HIGH IDPCUWCJ70.50- 49 4 VERY HIGH SJMVNCYE05 - 99 5 VERY HIGH POSITIVE >100 6 VERY HIGH POSITIVE 2.79 {KU/L} Abnormal <0.35 -[facility] [address] DO Work Phone: [phone] Comment on above: SEE IMMUNOCAP INTERP .IGE Tobacco Screening.on 022 Fall risk assessment a) No falls within the last year -[facility] [address] DO Work Phone: [phone] Tobacco use status CP b) No -[facility] [address] DO Work Phone: [phone] Panel Informationon 01-19 Please click on the link to view the study images Normal [facility] [address] Work Phone: [phone] Normal [facility] [address] Work Phone: [phone] Cult, Genitalon 01-14-2022 Bacteria identified Aer cx Nom (Genital specimen) [facility] [address] Work Phone: [phone] Cult, Urineon 01-14-2022 Bacteria identified Cx Nom (U) [facility] [address] Work Phone: [phone] GC + Chlamydia By Amplified Detectionon 01-14-2022 C. trachomatis rRNA SHANAE+probe Ql (Unsp spec) Negative Negative [facility] [address] Work Phone: [phone] Comment on above: The APTIMA Combo 2 a ssay is FDA-approved for Chlamydia trachomatis and Neisseria gonorrhoeae testing on female endocervical and vaginal swabs, ThinPrep liquid pap samples, male urine samples and urethral swabs. Performance characteristics for Chlamydia trachomatis and Neisseria gonorrhoeae testing on specific tno-MVX-enszeqzn sample types (female urine samples) have been validated by [facility]. This laboratory is certified by CLIA to perform high complexity testing. Samples from all other sites are not validated for this method. N. gonorrhoeae rRNA SHANAE+probe Ql (Unsp spec) Negative Negative [address] Work Phone: [phone] Comment on above: SOURCE: Urine The AP MADI Combo 2 assay is FDA-approved for Chlamydia trachomatis and Neisseria gonorrhoeae testing on female endocervical and vaginal swabs, ThinPrep liquid pap samples, male urine samples and urethral swabs. Performance characteristics for Chlamydia trachomatis and Neisseria gonorrhoeae testing on specific cij-IRS-bbiatkad sample types (female urine samples) have been validated by [facility]. This laboratory is certified by CLIA to perform high complexity testing. Samples from all other sites are not validated for this method. LMPon 01-14-2022 Last menstrual period start date 09Jan[address] Work Phone: [phone] Laboratory - Cytologyon 12-31 Cytology report Cyto stain.thin prep Doc (Cvx/Vag) [address] Work Phone: [phone] CT Abdomen and Pelvis with I V Contraston 01-01-2022 CT Abdomen and Pelvis W contrast IV Please click on the link to view the study images Normal [facility] Work Phone: [phone] CT Abdomen and Pelvis W contrast IV Normal [address] Work Phone: [phone] Laboratory - Chemistry and C hemistry - challengeon 12-31-2021 Albumin BCP dye [Mass/Vol] 4.4 g/dL 3.4 - 5.0 [facility] Work Phone: [phone] ALP [Catalytic activity/Vol] 54 U/L 33 - 110 [facility] Work Phone: [phone] ALT With P-5'-P [Catalytic activity/Vol] 18 U/L 7 - 45 [facility] Work Phone: [phone] Comment on above: Patients treated wit h Sulfasalazine may generate falsely decreased results for ALT. Anion gap [Moles/Vol] 12 mmol/L 10 - 20 [facility] Work Phone: [phone] AST With P-5'-P [Catalytic activity/Vol] 16 U/L 9 - 39 [facility] Work Phone: [phone] Bilirubin [Mass/Vol] 0.4 mg/dL 0.0 - 1.2 [facility] Work Phone: [phone] Calcium [Mass/Vol] 9.2 mg/dL 8.6 - 10.3 [facility] Work Phone: [phone] Chloride [Moles/Vol] 105 mmol/L 98 - 107 [facility] Work Phone: [phone] CO2 [Moles/Vol] 25 mmol/L 21 - 32 [facility] Work Phone: [phone] Creatinine [Mass/Vol] 0.71 mg/dL See Below [facility] Work Phone: [phone] Comment on above: Reference Range: 0.5 0 - 1.05 Glucose [Mass/Vol] 84 mg/dL 74 - 99 [facility] Work Phone: [phone] Potassium [Moles/Vol] 3.6 mmol/L 3.5 - 5.3 [facility] Work Phone: [phone] Protein [Mass/Vol] 7.0 g/dL 6.4 - 8.2 [facility] Work Phone: [phone] Sodium [Moles/Vol] 138 mmol/L 136 - 145 [facility] Work Phone: [phone] TSH Qn 1.47 m[IU]/L See Below [facility] Work Phone: [phone] Comment on above: Reference Range: 0.4 4 - 3.98 TSH testing is performed using different testing methodology at [facility] than at other [facility]. Direct result comparisons should only be made within the same method. Urea nitrogen [Mass/Vol] 16 mg/dL 6 - 23 [facility] Work Phone: [phone] Laboratory - Hematology and Cell countson 12-31-2021 Erythrocyte distribution width (RBC) [Ratio] 12.6 % See Below [facility] Work Phone: [phone] Comment on above: Reference Range: 11. 5 - 14.5 Hematocrit (Bld) [Volume fraction] 42.5 % See Below [facility] Work Phone: [phone] Comment on above: Reference Range: 36. 0 - 46.0 Hemoglobin (Bld) [Mass/Vol] 14.5 g/dL See Below [facility] Work Phone: [phone] Comment on above: Reference Range: 12. 0 - 16.0 MCHC (RBC) [Mass/Vol] 34.1 g/dL See Below [facility] Work Phone: [phone] Comment on above: Reference Range: 32. 0 - 36.0 MCV (RBC) [Entitic vol] 88 fL 80 - 100 [facility] Work Phone: [phone] Platelets (Bld) [#/Vol] 205 10*3/uL 150 - 450 [facility] Work Phone: [phone] RBC (Bld) [#/Vol] 4.81 {x10E12/L} See Below [facility] Work Phone: [phone] Comment on above: Reference Range: 4.0 0 - 5.20 WBC (Bld) [#/Vol] 6.7 10*3/uL 4.4 - 11.3 [facility] Work Phone: [phone] Lipid Panelon 12-31-2021 Cholesterol [Mass/Vol] 155 mg/dL 0 - 199 [facility] Work Phone: [phone] Comment on above: . AGE DESIRABLE [...] dosing. Cholesterol in HDL [Mass/Vol] 69.0 mg/dL [facility] Work Phone: Comment on above: . AGE VERY LOW LOW N ORMAL HIGH 0-19 Y < 35 < 40 40-45 ---- 20-24 Y ---- < 40 >45 ---- >24 Y ---- < 40 40-60 >60. Cholesterol in LDL [Mass/Vol] 74 mg/dL 0 - 119 [facility] Work Phone: Comment on above: . NEAR BORD AGE INA RABLE OPTIMAL HIGH HIGH VERY HIGH 0-19 Y 0 - 109 --- 110-129 >/= 130 ---- 20-24 Y 0 - 119 --- 120-159 >/= 160 ---- >24 Y 0 - 99 100-129 130-159 160-189 >/=190. Cholesterol.total/Chol esterol in HDL [Mass ratio] 2.2 {ratio} [facility] Work Phone: Comment on above: REF VALUESDESIRABLE < 3.4HIGH RISK > 5.0 Triglyceride [Mass/Vol] 60 mg/dL 0 - 149 [facility] Work Phone: Comment on above: . AGE [...] Lipid Panel 12 mg/dL 0 - 40 [facility] Work Phone: No Panel Informationon 12-31 >90 >90 [facility] Work Phone: Comment on above: CALCULATIONS OF MCKENNA MATED GFR ARE PERFORMED USING THE 2020 CKD-EPI STUDY REFIT EQUATION WITHOUT THE RACE VARIABLE FOR THE IDMS-TRACEABLE CREATININE METHODS.https://jasn.asnjournals.org/content/early//A SN.2684161663 Testosterone, Levelon 2021 Testosterone [Mass/Vol] ng/dL 0 - 70 [facility] Work Phone: Comment on above: Nandrolone decanoate , 11 Beta-hydroxytestosterone, androstenedione, testosterone propionate and 24-zkby-plknerifzues strongly cross react with this test method. [...] Screening.on 022 Adult depression screening assessment No [facility] Work Phone: Fall risk assessment a) No falls within the last year [facility] Work Phone: Tobacco use status CPHS b) No [facility] Work Phone: INFLUENZA A/B, COVID 2019 PC R,SYMPTOMATICon 09-01-2021 Date and time of symptom onset [id number] 1 [facility] Work Phone: INFLUENZA A/B, COVID 2019 PCR,SYMPTOMATIC Not detected See Below [facility] Work Phone: Comment on above: Reference Range: [...] make patient management decisions.Fact sheet for providers: https://www.fda.gov/media/633388/downloadFact sheet for patients: https://www.fda.gov/media/778320/downloadThis test has received FDA Emergency Use Authorization (EUA) and has been verified by [facility] ([facility]). This test is only authorized for the duration of time that circumstances exist to justify the authorization of the emergency use of in vitro diagnostic tests for the detection of SARS-CoV-2 virus and/or diagnosis of COVID-19 infection under section 564(b)(1) of the Act, 21 U.S.C. 360bbb-3(b)(1), unless the authorization is terminated or revoked sooner. [facility] is certified under CLIA-88 as qualified to perform high complexity testing. Testing is performed in the [facility] laboratories located at [address] [place] [address]. Reference Range: Not Detected Respiratory virus testing is performed routinely by PCR for Influenza A/B and RSV. If Influenza and RSV PCR are negative, testing for parainfluenza 1,2,3 viruses and adenovirus is routinely performed for oncology inpatients and intensive care unit patients at [facility] and is available on request on other patients by calling Laboratory Client Services at [phone] Not Detected results do not preclude Influenza [...] by the Microbiology Laboratory, Department of Pathology, [facility], [place], [place]. It has not been cleared or [...] inpatients and intensive care unit patients at [facility] and is available on request on other patients by calling Laboratory Client Services at [phone]. Not Detected results do not preclude Influenza A/B or RSV infections since the adequacy of sample collection or low viral burden may impact the clinical sensitivity of this test method. Tobacco Screening.on 022 Adult depression screening assessment No [facility] Work Phone: Fall risk assessment a) No falls within the last year [facility] Work Phone: Tobacco use status [facility] b) No [facility] Work Phone: Tobacco Screening.on 021 Fall risk assessment c) Not medically indicated [facility] Work Phone: Tobacco use status [facility] b) No [facility] Work Phone: Otheron 09-23-2019 XR Abdomen AP Interpreted by: SUMAN JOHN HTYDNJGF30/22/20 17:52MRN: [id number] Name: KM HUNT STUDY:ABDOMEN AP VIEW; 09/23/2019 [...] signed by: CHEIKH MCKNIGHT 09/23/19 17:52 Normal [facility] [employer] Work Phone: Comment on above: Ordering Provider: Amara BERRY [id number] Cult, Urineon 09-20-2019 Bacteria identified Cx Nom (U) PATIENT: KM HUNT [facility]ATION: [facility]#: [id number] : 89 AGE: SEX: F ORDERED BY: REVA BAIN: URINE COLLECTED: 09/20/19 09:57ANTIBIOTICS AT [place]RE[place].: RECEIVED : 09/20/19 17:49SITE: Clean Catch/Voided R E S U L T S URINE CULTURE,BACTERIAL FINAL 09/21/19 12:20 NO GROWTH [facility] [employer] Work Phone: Comment on above: Ordering Provider: Pamela BAIN [id number] C Urineon 12-24-2018 C Urine Final Report: Rare Normal skin juan daniel isolated Normal [facility] Comment on above: Performed By: #### 2 [id number] #### IRENE Microbiology Subsection [facility] [place] [address] UA Completeon 12-22-2018 Color (U) Yellow Normal Yellow [facility] Comment on above: Performed By: #### 8 [id number] #### IRENE Urinalysis Automated Subsection [address] [place] [address] Glucose (U) [Mass/Vol] Negative Normal Negative [facility] Comment on above: Performed By: #### 8 [id number] #### IRENE Urinalysis Automated Subsection [facility] [place] [address] Ketones Ql (U) Negative Normal Negative [facility] Comment on above: Performed By: #### 8 [id number] #### IRENE Urinalysis Automated [address] [place] [address] RBC (U) [#/Vol] 0-3 Normal 0-3 [facility] Comment on above: Performed By: #### 8 [id number] #### IRENE Urinalysis Automated Subsection [address] [place] [address] UA Blood Negative Normal Negative [facility] Comment on above: Performed By: #### 8 [id number] #### IRENE Urinalysis Automated [address] [place] [address] UA Bacteria Trace Abnormal None [facility] Comment on above: Performed By: #### 8 [id number] #### IRENE Urinalysis Automated Subsection [facility] [place] [address] UA Clarity Clear Normal Clear [facility] Comment on above: Performed By: #### 8 [id number] #### IRENE Urinalysis Automated Subsection [address] [place] [address] UA Leuk Est Negative Normal Negative [facility] Comment on above: Performed By: #### 8 [id number] #### IRENE Urinalysis Automated Subsection [facility] [place] [address] UA Nitrite Negative Normal Negative [facility] Comment on above: Performed By: #### 8 [id number] #### IRENE Urinalysis Automated Subsection [facility] [place] [address] UA pH 5.0 Normal 4.6-8.0 [facility] Comment on above: Performed By: #### 8 [id number] #### IRENE Urinalysis Automated Subsection [facility] [place] [address] UA Protein Negative Normal Negative [facility] Comment on above: Performed By: #### 8 [id number] #### IRENE Urinalysis Automated Subsection [facility] [place] [address] UA Spec Grav 1.016 Normal 1.003-1.030 [facility] Comment on above: Performed By: #### 8 [id number] #### IRENE Urinalysis Automated Subsection [address] [place] [id number] UA Squam Epithelial 0-5 Normal 0-5 [facility] Comment on above: Performed By: #### [id number] #### IRENE Urinalysis Automated Subsection [facility] [place] [address] UA Urobilinogen Negative Normal [facility] Comment on above: Result Comment: Due to a manufacturing issue, low positive urobilinogen results may be fasely positive. Correlate with urine bilirubin and additional clinical/laboratory findings to assess the risk of hemolytic anemia or liver disease. If clinically indicated, repeat testing with an alternate method is available by contacting the laboratory within 24 hours. Performed By: #### [id number] #### IRENE Urinalysis Automated Subsection [address] [place] [address] UA WBC 0-5 Normal 0-5 [facility] Comment on above: Performed By: #### [id number] #### IRENE Urinalysis Automated Subsection [address] [place] [address] Urobilinogen Qn (U) Negative Normal Negative [facility] Comment on above: Performed By: #### [id number] #### IRENE Urinalysis Automated Subsection [address] [place] [address] Vital Signs Date Time Vital Sign Value Performing Clinician Facility 04-18-2025 08:21-0400 Body height 152.4 cm Ayaka Rootman CIRCUS SUPERVISOR-C Work Phone: [facility] 04-18-2025 08:21-0400 Body mass index (BMI) [Ratio] 28.6 kg/m2 Ayaka Rootman CIRCUS SUPERVISOR-C Work Phone: [facility] 04-18-2025 08:21-0400 Body weight 66.47 kg Ayaka Doss CIRCUS SUPERVISOR-C Work Phone: [facility] 04-18-2025 08:21-0400 Diastolic blood pressure 70 mm[Hg] Ayaka Doss CIRCUS SUPERVISOR-C Work Phone: [facility] 04-18-2025 08:21-0400 Systolic blood pressure 110 mm[Hg] Ayaka Doss CIRCUS SUPERVISOR-C Work Phone: [facility] 03-19-2025 15:12-0400 Body height 152.4 cm Ayaka Doss CIRCUS SUPERVISOR-C Work Phone: [facility] 03-19-2025 15:12-0400 Body mass index (BMI) [Ratio] 27.8 kg/m2 Ayaka Doss CIRCUS SUPERVISOR-C Work Phone: [facility] 03-19-2025 15:12-0400 Body weight 64.58 kg Ayaka Doss CIRCUS SUPERVISOR-C Work Phone: [facility] 03-19-2025 15:12-0400 Diastolic blood pressure 70 mm[Hg] Ayaka Doss CIRCUS SUPERVISOR-C Work Phone: [facility] 03-19-2025 15:12-0400 Systolic blood pressure 103 mm[Hg] Ayaka Doss CIRCUS SUPERVISOR-C Work Phone: [facility] 02-22-2025 09:25-0400 Body height 152.[address] Daniel Schneider DO Work Phone: 3(450)618-256555 [place] [address] 02-22-2025 09:25-0400 Body mass index (BMI) [Ratio] 26 kg/m2 Dr. Daniel Schneider DO Work Phone: 7(436)202-340055 [place] [address] 02-22-2025 09:25-0400 Body weight 60.[address] Daniel Schneider DO Work Phone: 6(832)513-370155 [place] [address] 02-22-2025 09:25-0400 Diastolic blood pressure 72 mm[Hg] Dr. Daniel Schneider DO Work Phone: [facility] 02-22-2025 09:25-0400 Systolic blood pressure 103 mm[Hg] Dr. Daniel Schneider DO Work Phone: 1(415)872-080855 [place] [address] 01-26-2025 13:35-0400 Body height 152.[address] Daniel Schneider DO Work Phone: 9(686)781-324355 [place] [address] 01-26-2025 13:35-0400 Body mass index (BMI) [Ratio] 25 kg/m2 Dr. Daniel Schneider DO Work Phone: 5(597)474-697555 [place] [address] 01-26-2025 13:35-0400 Body weight 58.[address] Daniel Schneider DO Work Phone: 9(417)354-822255 [place] [address] 01-26-2025 13:35-0400 Diastolic blood pressure 74 mm[Hg] Dr. Daniel Schneider DO Work Phone: [facility] 01-26-2025 13:35-0400 Systolic blood pressure 106 mm[Hg] Dr. Daniel Schneider DO Work Phone: [facility] 01-12-2025 09:14-0400 Body mass index (BMI) [Ratio] 24.4 kg/m2 Dr. Daniel Schneider DO Work Phone: [facility] 01-12-2025 09:14-0400 Body weight 56.[address] Daniel Schneider DO Work Phone: [facility] 01-12-2025 09:14-0400 Diastolic blood pressure 64 mm[Hg] Dr. Daniel Schneider DO Work Phone: [facility] 01-12-2025 09:14-0400 Systolic blood pressure 116 mm[Hg] Dr. Daniel Schneider DO Work Phone: [facility] 01-04-2025 10:44-0400 Body height 152.4 cm Johann Haines MD Work Phone: [facility] 01-04-2025 10:44-0400 Body mass index (BMI) [Ratio] 23.44 kg/m2 Johann Haines MD Work Phone: [facility] 01-04-2025 10:44-0400 Body weight 54.43 kg Johann Haines MD Work Phone: [facility] 01-04-2025 10:44-0400 Heart rate 73 /min Johann Haines MD Work Phone: [facility] 01-04-2025 10:44-0400 SaO2% (BldA) [Mass fraction] 98 % Johann Haines MD Work Phone: [facility] 11-23-2024 06:14-0400 Diastolic blood pressure 55 mm[Hg] Starr Torrez MD Work Phone: 3(572)549-552370 [place] [address] 11-23-2024 06:14-0400 Heart rate 75 /min Starr Torrez MD Work Phone: 2(471)365-032691 [place] [address] 11-23-2024 06:14-0400 Respiratory rate 20 /min Starr Torrez MD Work Phone: 8(155)147-480391 [place] [address] 11-23-2024 06:14-0400 SaO2% (BldA) [Mass fraction] 100 % Starr Torrez MD Work Phone: 0(455)672-984091 [place] [address] 11-23-2024 06:14-0400 Systolic blood pressure 98 mm[Hg] Starr Torrez MD Work Phone: 8(345)698-463491 [place] [address] 11-23-2024 01:54-0400 Body height 152.4 cm Starr Torrez MD Work Phone: 2(524)217-383291 [place] [address] 11-23-2024 01:52-0400 Body temperature 97.9 [degF] Starr Torrez MD Work Phone: 0(467)567-151191 [place] [address] 11-05-2024 17:28-0400 Diastolic blood pressure 71 mm[Hg] Dr. Daniel Schneider DO Work Phone: [facility] 11-05-2024 17:28-0400 Heart rate 91 /min Dr. Daniel Schneider DO Work Phone: [facility] 11-05-2024 17:28-0400 Respiratory rate 16 /min Dr. Daniel Schneider DO Work Phone: [facility] 11-05-2024 17:28-0400 SaO2% (BldA) [Mass fraction] 100 % Dr. Daniel Schneider DO Work Phone: [facility] 11-05-2024 17:28-0400 Systolic blood pressure 107 mm[Hg] Dr. Daniel Schneider DO Work Phone: [facility] 11-05-2024 16:32-0400 Body mass index (BMI) [Ratio] 23.8 kg/m2 Dr. Daniel Schneider DO Work Phone: [facility] 11-05-2024 16:32-0400 Body weight 55.[address] Danile Schneider DO Work Phone: [facility] 11-05-2024 15:17-0400 Body height 152.[address] Daniel Schneider DO Work Phone: [facility] 11-05-2024 15:17-0400 Body temperature 97.4 [degF] Dr. Daniel Schneider DO Work Phone: [facility] 09-20-2024 14:45-0500 Body height 152.4 cm Ayaka Doss ASSESSMENT COORDINATOR-SYRUP FILTERER Work Phone: [facility] 09-20-2024 14:45-0500 Body mass index (BMI) [Ratio] 24.02 kg/m2 Ayaka Rootman ASSESSMENT COORDINATOR-SYRUP FILTERER Work Phone: [facility] 09-20-2024 14:45-0500 Body temperature 97.5 [degF] Ayaka Selam ASSESSMENT COORDINATOR-SYRUP FILTERER Work Phone: [facility] 09-20-2024 14:45-0500 Body weight 55.79 kg Ayaka Rootman ASSESSMENT COORDINATOR-SYRUP FILTERER Work Phone: [facility] 09-20-2024 14:45-0500 Diastolic blood pressure 73 mm[Hg] Ayaka Rootman ASSESSMENT COORDINATOR-SYRUP FILTERER Work Phone: [facility] 09-20-2024 14:45-0500 Heart rate 89 /min Ayaka Rootman ASSESSMENT COORDINATOR-SYRUP FILTERER Work Phone: [facility] 09-20-2024 14:45-0500 Systolic blood pressure 109 mm[Hg] Ayaka Selam ASSESSMENT COORDINATOR-SYRUP FILTERER Work Phone: 1(546)660-226597 [place] [address] 09-09-2024 09:12-0500 Body height 154 cm Evens Ken ASSESSMENT COORDINATOR-SYRUP FILTERER Work Phone: [facility] 09-09-2024 09:12-0500 Body mass index (BMI) [Ratio] 22.95 kg/m2 Evens Ken ASSESSMENT COORDINATOR-SYRUP FILTERER Work Phone: [facility] 09-09-2024 09:12-0500 Body temperature 98.2 [degF] Evens Ken ASSESSMENT COORDINATOR-SYRUP FILTERER Work Phone: [facility] 09-09-2024 09:12-0500 Body weight 54.43 kg Evens Ken ASSESSMENT COORDINATOR-SYRUP FILTERER Work Phone: [facility] 09-09-2024 09:12-0500 Diastolic blood pressure 73 mm[Hg] Evens Ken ASSESSMENT COORDINATOR-SYRUP FILTERER Work Phone: [facility] 09-09-2024 09:12-0500 Heart rate 98 /min Evens Ken ASSESSMENT COORDINATOR-SYRUP FILTERER Work Phone: [facility] 09-09-2024 09:12-0500 SaO2% (BldA) [Mass fraction] 98 % Evens Ken ASSESSMENT COORDINATOR-SYRUP FILTERER Work Phone: [facility] 09-09-2024 09:12-0500 Systolic blood pressure 106 mm[Hg] Evens Ken ASSESSMENT COORDINATOR-SYRUP FILTERER Work Phone: [facility] 08-30-2024 16:51-0500 Body height 152.4 cm Ayaka Doss ASSESSMENT COORDINATOR-SYRUP FILTERER Work Phone: [facility] 08-30-2024 16:51-0500 Body mass index (BMI) [Ratio] 23.87 kg/m2 Ayaka Doss ASSESSMENT COORDINATOR-SYRUP FILTERER Work Phone: [facility] 08-30-2024 16:51-0500 Body weight 55.43 kg Ayaka Doss ASSESSMENT COORDINATOR-SYRUP FILTERER Work Phone: [facility] 08-30-2024 16:51-0500 Diastolic blood pressure 82 mm[Hg] Ayaka Doss ASSESSMENT COORDINATOR-SYRUP FILTERER Work Phone: [facility] 08-30-2024 16:51-0500 Heart rate 67 /min Ayaka Doss ASSESSMENT COORDINATOR-SYRUP FILTERER Work Phone: [facility] 08-30-2024 16:51-0500 Systolic blood pressure 120 mm[Hg] Ayaka Doss ASSESSMENT COORDINATOR-SYRUP FILTERER Work Phone: [facility] 05-02-2024 11:44-0400 Body height 152.4 cm Evens Tamirlouis ASSESSMENT COORDINATOR-SYRUP FILTERER Work Phone: [facility] 05-02-2024 11:44-0400 Body mass index (BMI) [Ratio] 23.44 kg/m2 Evens Tamirenibenjamín ASSESSMENT COORDINATOR-SYRUP FILTERER Work Phone: [facility] 05-02-2024 11:44-0400 Body temperature 98.8 [degF] Evens Garnettenibenjamín ASSESSMENT COORDINATOR-SYRUP FILTERER Work Phone: 5(380)500-866619 [place] [address] 05-02-2024 11:44-0400 Body weight 54.43 kg Evens Garnettenibenjamín ASSESSMENT COORDINATOR-SYRUP FILTERER Work Phone: [facility] 05-02-2024 11:44-0400 Diastolic blood pressure 75 mm[Hg] Evens Garnettenibenjamín ASSESSMENT COORDINATOR-SYRUP FILTERER Work Phone: [facility] 05-02-2024 11:44-0400 Heart rate 90 /min Evens Palacios ASSESSMENT COORDINATOR-SYRUP FILTERER Work Phone: [facility] 05-02-2024 11:44-0400 Respiratory rate 18 /min Evens Garnettenibenjamín ASSESSMENT COORDINATOR-SYRUP FILTERER Work Phone: [facility] 05-02-2024 11:44-0400 SaO2% (BldA) [Mass fraction] 95 % Evens Tamirlouis ASSESSMENT COORDINATOR-SYRUP FILTERER Work Phone: [facility] 05-02-2024 11:44-0400 Systolic blood pressure 108 mm[Hg] Evens Garnettenibenjamín ASSESSMENT COORDINATOR-SYRUP FILTERER Work Phone: [facility] 04-28-2024 12:45-0400 Diastolic blood pressure 79 mm[Hg] Jayden Taylor MD Work Phone: [facility] 04-28-2024 12:45-0400 Heart rate 83 /min Jayden Taylor MD Work Phone: [facility] 04-28-2024 12:45-0400 Respiratory rate 16 /min Jayden Taylor MD Work Phone: [facility] 04-28-2024 12:45-0400 SaO2% (BldA) [Mass fraction] 100 % Jayden Taylor MD Work Phone: [facility] 04-28-2024 12:45-0400 Systolic blood pressure 116 mm[Hg] Jayden Taylor MD Work Phone: [facility] 04-28-2024 10:03-0400 Body temperature 97.3 [degF] Jayden Taylor MD Work Phone: [facility] 04-28-2024 06:23-0400 Body mass index (BMI) [Ratio] 23.44 kg/m2 Jayden Taylor MD Work Phone: [facility] 04-28-2024 06:23-0400 Body weight 54.43 kg Jayden Taylor MD Work Phone: [facility] 12-22-2023 14:49-0400 Body height 153 cm Jayden Taylor MD Work Phone: [facility] 12-22-2023 14:49-0400 Body mass index (BMI) [Ratio] 23.25 kg/m2 Jayden Taylor MD Work Phone: [facility] 12-22-2023 14:49-0400 Body weight 54.43 kg Jayden Taylor MD Work Phone: [facility] 10-29-2023 14:18-0400 Body height 153 cm Jameel Hernandez MD Work Phone: [facility] 10-29-2023 14:18-0400 Body mass index (BMI) [Ratio] 23.37 kg/m2 Jameel Hernandez MD Work Phone: [facility] 10-29-2023 14:18-0400 Body weight 54.7 kg Jameel Hernandez MD Work Phone: [facility] 10-29-2023 14:18-0400 Diastolic blood pressure 68 mm[Hg] Jameel Hernandez MD Work Phone: [facility] 10-29-2023 14:18-0400 Systolic blood pressure 124 mm[Hg] Jameel Hernandez MD Work Phone: [facility] 10-14-2023 11:50-0400 Diastolic blood pressure 58 mm[Hg] Jameel Hernandez MD Work Phone: [facility] 10-14-2023 11:50-0400 Heart rate 70 /min Jameel Hernandez MD Work Phone: [facility] 10-14-2023 11:50-0400 Respiratory rate 16 /min Jameel Hernandez MD Work Phone: [facility] 10-14-2023 11:50-0400 SaO2% (BldA) [Mass fraction] 97 % Jameel Hernandez MD Work Phone: [facility] 10-14-2023 11:50-0400 Systolic blood pressure 100 mm[Hg] Jameel Hernandez MD Work Phone: [facility] 10-14-2023 11:05-0400 Body temperature 97.59 [degF] Jameel Hernandez MD Work Phone: [facility] 10-14-2023 07:32-0400 Body height 153 cm Jameel Hernandez MD Work Phone: [facility] 10-14-2023 07:32-0400 Body mass index (BMI) [Ratio] 23.11 kg/m2 Jameel Hernandez MD Work Phone: [facility] 10-14-2023 07:32-0400 Body weight 54.1 kg Jameel Hernandez MD Work Phone: [facility] 09-24-2023 14:18-0500 Body height 152.4 cm Jameel Hernandez MD Work Phone: [facility] 09-24-2023 14:18-0500 Body mass index (BMI) [Ratio] 23.98 kg/m2 Jameel Hernandez MD Work Phone: [facility] 09-24-2023 14:18-0500 Body weight 55.7 kg Jameel Hernandez MD Work Phone: [facility] 09-24-2023 14:18-0500 Diastolic blood pressure 64 mm[Hg] Jameel Hernandez MD Work Phone: [facility] 09-24-2023 14:18-0500 Systolic blood pressure 118 mm[Hg] Jameel Hernandez MD Work Phone: [facility] 04-28-2023 16:42-0400 Body height 152.4 cm Sukh Newbill PA-C Work Phone: [facility] 04-28-2023 16:42-0400 Body mass index (BMI) [Ratio] 22.91 kg/m2 Sukh Newbill PA-C Work Phone: [facility] 04-28-2023 16:42-0400 Body weight 53.21 kg Sukh Newbill PA-C Work Phone: [facility] 04-28-2023 16:42-0400 Diastolic blood pressure 77 mm[Hg] Sukh Newbill PA-C Work Phone: [facility] 04-28-2023 16:42-0400 Heart rate 103 /min Sukh Newbill PA-C Work Phone: [facility] 04-28-2023 16:42-0400 Systolic blood pressure 130 mm[Hg] Sukh Newbill PA-C Work Phone: [facility] 03-04-2023 09:42-0400 Body height 152.4 cm Sukh Newbill PA-C Work Phone: [facility] 03-04-2023 09:42-0400 Body mass index (BMI) [Ratio] 21.99 kg/m2 Sukh Newbill PA-C Work Phone: [facility] 03-04-2023 09:42-0400 Body weight 51.08 kg Sukh Newbill PA-C Work Phone: [facility] 03-04-2023 09:42-0400 Diastolic blood pressure 66 mm[Hg] Sukh Newbill PA-C Work Phone: [facility] 03-04-2023 09:42-0400 Heart rate 84 /min Sukh Newbill PA-C Work Phone: [facility] 03-04-2023 09:42-0400 Systolic blood pressure 110 mm[Hg] Sukh Newbill PA-C Work Phone: [facility] 02-15-2023 10:24-0400 Body height 149.86 cm Sukh Santiago Newbill Work Phone: [facility] [address] Work Phone: 02-15-2023 10:24-0400 Body mass index (BMI) [Ratio] 23.86 kg/m2 Sukh Santiago Newbill Work Phone: [facility] [address] Work Phone: 02-15-2023 10:24-0400 Body surface area Derived from formula 1.47 m2 Sukh Pamela Newbill Work Phone: [facility] [address] Work Phone: 02-15-2023 10:24-0400 Body weight 53.58 kg Sukh Pamela Newbill Work Phone: [address] Work Phone: 02-15-2023 10:24-0400 Diastolic blood pressure 64 mm[Hg] Sukh Pamela Newbill Work Phone: [address] Work Phone: 02-15-2023 10:24-0400 Systolic blood pressure 114 mm[Hg] Sukh M Newbill Work Phone: [address] Work Phone: 01-26-2023 11:56-0400 Body height 152.4 cm Sukh Newbill PA-C Work Phone: [facility] 01-26-2023 11:56-0400 Body mass index (BMI) [Ratio] 22.48 kg/m2 Sukh Newbill PA-C Work Phone: [facility] 01-26-2023 11:56-0400 Body temperature 97.5 [degF] Sukh Newbill PA-C Work Phone: [facility] 01-26-2023 11:56-0400 Body weight 52.21 kg Sukh Newbill PA-C Work Phone: [facility] 01-26-2023 11:56-0400 Diastolic blood pressure 74 mm[Hg] Sukh Newbill PA-C Work Phone: [facility] 01-26-2023 11:56-0400 Heart rate 54 /min Sukh Newbill PA-C Work Phone: [facility] 01-26-2023 11:56-0400 Systolic blood pressure 109 mm[Hg] Sukh Newbill PA-C Work Phone: [facility] 12-17-2022 09:09-0400 Body height 149.86 cm Sukh M Newbill Work Phone: [id number] [address] Work Phone: 12-17-2022 09:09-0400 Body mass index (BMI) [Ratio] 24.04 kg/m2 [facility] Work Phone: [id number] [address] Work Phone: 12-17-2022 09:09-0400 Body surface area Derived from formula 1.48 m2 [facility] Work Phone: DJ-MVMWH-Zmrelg [address] Work Phone: 12-17-2022 09:09-0400 Body weight 53.98 kg [facility] Work Phone: US-UDREJ-Vuuwbl [address] Work Phone: 12-17-2022 09:09-0400 Diastolic blood pressure 73 mm[Hg] Sukh Simpson Work Phone: RV-VUUPI-Lpkljv [address] Work Phone: 12-17-2022 09:09-0400 Heart rate 65 /min Sukh Simpson Work Phone: PH-DTFIQ-Vbxulm [address] Work Phone: 12-17-2022 09:09-0400 Systolic blood pressure 106 mm[Hg] Sukh Simpson Work Phone: BC-PGVMI-Rmlslc [address] Work Phone: 12-17-2022 09:09-0400 [address] [facility] Work Phone: TM-WBRMD-Joiscl [address] Work Phone: Comment on above: GRAV PARA [employer] 12-02-2022 13:12-0400 Body mass index (BMI) [Ratio] 24.04 kg/m2 [facility] Work Phone: [facility] Work Phone: 12-02-2022 13:12-0400 Body surface area Derived from formula 1.48 m2 [facility] Work Phone: [facility] Work Phone: 12-02-2022 13:12-0400 Body weight 53.98 kg Sukh Pamela Simpsonl Work Phone: [facility] Work Phone: 12-02-2022 13:12-0400 Diastolic blood pressure 71 mm[Hg] Sukh Pamela Newbill Work Phone: [facility] Work Phone: 12-02-2022 13:12-0400 Heart rate 67 /min Sukh Pamela Simpsonl Work Phone: [facility] Work Phone: 12-02-2022 13:12-0400 Systolic blood pressure 96 mm[Hg] Sukh Pamela Simpsonl Work Phone: [facility] Work Phone: 12-02-2022 13:12-0400 0 1 Sukh Pollock Work Phone: [facility] Work Phone: Comment on above: [employer] 11-24-2022 10:04-0400 Body height 149.86 cm Sukh Simpsonl Work Phone: [place] [address] Work Phone: 11-24-2022 10:04-0400 Body mass index (BMI) [Ratio] 26.48 kg/m2 Sukh Pamela Griffinbill Work Phone: [place] [address] Work Phone: 11-24-2022 10:04-0400 Body surface area Derived from formula 1.54 m2 Sukh Pamela Newbill [facility] [address] Work Phone: 11-24-2022 10:04-0400 Body weight 59.48 kg Sukh Pamela Newbill Work Phone: [facility] [address] Work Phone: 11-24-2022 10:04-0400 Diastolic blood pressure 72 mm[Hg] Sukh M Newbill Work Phone: [address] Work Phone: 11-24-2022 10:04-0400 Systolic blood pressure 118 mm[Hg] Sukh Pamela Newbill Work Phone: [address] Work Phone: 11-03-2022 11:02-040 Body height 149.9 cm Sukh Newbill PA-C Work Phone: [facility] 11-03-2022 11:02-0400 Body mass index (BMI) [Ratio] 25.45 kg/m2 Sukh Newbill PA-C Work Phone: [facility] 11-03-2022 11:02-040 Body temperature 98.01 [degF] Sukh Newbill PA-C Work Phone: [facility] 11-03-2022 11:02-0400 Body weight 57.15 kg Sukh Newbill PA-C Work Phone: [facility] 11-03-2022 11:02-0400 Diastolic blood pressure 71 mm[Hg] Sukh Newbill PA-C Work Phone: [facility] 11-03-2022 11:02-0400 Heart rate 96 /min Sukh Newbill PA-C Work Phone: [facility] 11-03-2022 11:02-0400 SaO2% (BldA) [Mass fraction] 98 % Sukh Newbill PA-C Work Phone: [facility] 11-03-2022 11:02-0400 Systolic blood pressure 105 mm[Hg] Sukh Newbill PA-C Work Phone: [facility] 10-31-2022 10:57-0400 Body height 152 cm Sukh Newbill Other Phone: [facility] 10-31-2022 10:57-0400 Body temperature 97.7 [degF] Sukh Newbill Other Phone: [facility] 10-31-2022 10:57-0400 Diastolic blood pressure 76 mm[Hg] Sukh Newbill Other Phone: [facility] 10-31-2022 10:57-0400 Heart rate 71 /min Sukh Newbill Other Phone: [facility] 10-31-2022 10:57-0400 Respiratory rate 12 /min Sukh Newbill Other Phone: [facility] 10-31-2022 10:57-0400 SaO2% (BldA) [Mass fraction] 98 % Sukh Newbill Other Phone: [facility] 10-31-2022 10:57-0400 Systolic blood pressure 109 mm[Hg] Sukh Newbill Other Phone: [facility] 09-21-2022 14:42-0500 Body height 149.86 cm Sukh Pamela Newbill Work Phone: [facility] Work Phone: 09-21-2022 14:42-0500 Body mass index (BMI) [Ratio] 25.63 kg/m2 Sukh Santiago Newbill Work Phone: [facility] Work Phone: 09-21-2022 14:42-0500 Body surface area Derived from formula 1.52 m2 Sukh Pamela Newbill Work Phone: [facility] Work Phone: 09-21-2022 14:42-0500 Body temperature 97.8 [degF] Sukh Pamela Newbill Work Phone: [facility] Work Phone: 02-20-2023 14:42-0500 Body weight 57.56 kg Sukh Pollock Work Phone: [facility] Work Phone: 09-21-2022 14:42-0500 Diastolic blood pressure 64 mm[Hg] Sukh Pollock Work Phone: [facility] Work Phone: 09-21-2022 14:42-0500 Heart rate 82 /min Sukh Pollock Work Phone: [facility] Work Phone: 09-21-2022 14:42-0500 SaO2% (BldA) [Mass fraction] 98 % Sukh Pollock Work Phone: [facility] Work Phone: 09-21-2022 14:42-0500 Systolic blood pressure 101 mm[Hg] Sukh Pollock Work Phone: [facility] Work Phone: 05-21-2022 16:26-0400 Body height 149.86 cm Sukh Pollock Work Phone: [facility] Work Phone: 05-21-2022 16:26-0400 Body mass index (BMI) [Ratio] 26.9 kg/m2 Sukh Pollock Work Phone: [facility] Work Phone: 05-21-2022 16:26-0400 Body surface area Derived from formula 1.55 m2 Sukh Pollock Work Phone: [facility] Work Phone: 05-21-2022 16:26-0400 Body temperature 97.5 [degF] Sukh Pollock Work Phone: [facility] Work Phone: 05-21-2022 16:26-0400 Body weight 60.42 kg Sukh Simpsonl Work Phone: [facility] Work Phone: 05-21-2022 16:26-0400 Diastolic blood pressure 81 mm[Hg] Sukh Simpsonl Work Phone: [facility] Work Phone: 05-21-2022 16:26-0400 Heart rate 63 /min Sukh Simpsonl Work Phone: [facility] Work Phone: 05-21-2022 16:26-0400 Systolic blood pressure 105 mm[Hg] Sukh Simpsonl Work Phone: [facility] Work Phone: 04-22-2022 16:21-0400 Body height 149.86 cm Sukh Pollock Work Phone: [facility] Work Phone: 04-22-2022 16:21-0400 Body mass index (BMI) [Ratio] 27 kg/m2 Sukh Pollock Work Phone: [facility] Work Phone: 04-22-2022 16:21-0400 Body surface area Derived from formula 1.55 m2 Sukh Pollock Work Phone: [facility] Work Phone: 04-22-2022 16:21-0400 Body temperature 97.6 [degF] Sukh Simpsonl Work Phone: [facility] Work Phone: 04-22-2022 16:21-0400 Body weight 60.65 kg uSkh Simpsonl Work Phone: [facility] Work Phone: 04-22-2022 16:21-0400 Diastolic blood pressure 69 mm[Hg] Sukh Pollock Work Phone: [facility] Work Phone: 04-22-2022 16:21-0400 Heart rate 87 /min Sukh Pollock Work Phone: [facility] Work Phone: 04-22-2022 16:21-0400 SaO2% (BldA) [Mass fraction] 98 % Sukh Pollock Work Phone: [facility] Work Phone: 04-22-2022 16:21-0400 Systolic blood pressure 109 mm[Hg] Sukh Pollock Work Phone: [facility] Work Phone: 02-11-2022 10:13-0400 Body height 149.86 cm Sukh Pollock Work Phone: [facility] 400 DO Work Phone: 02-11-2022 10:13-0400 Body mass index (BMI) [Ratio] 27.39 kg/m2 Sukh Pollock Work Phone: [facility] 400 DO Work Phone: 02-11-2022 10:13-0400 Body surface area Derived from formula 1.56 m2 Sukh Simpson Work Phone: [facility] 400 DO Work Phone: 02-11-2022 10:13-0400 Body temperature 98.4 [degF] Sukh Simpson Work Phone: [facility] 400 DO Work Phone: 02-11-2022 10:13-0400 Body weight 61.51 kg Sukh Simpson Work Phone: [facility] 400 DO Work Phone: 02-11-2022 10:13-0400 Diastolic blood pressure 64 mm[Hg] Sukh Simpson Work Phone: [facility] 400 DO Work Phone: 02-11-2022 10:13-0400 Heart rate 82 /min Sukh Simpson Work Phone: [facility] 400 DO Work Phone: 02-11-2022 10:13-0400 SaO2% (BldA) [Mass fraction] 97 % Sukh Simpson Work Phone: [facility] 400 DO Work Phone: 02-11-2022 10:13-0400 Systolic blood pressure 102 mm[Hg] Sukh Simpson Work Phone: [facility] 400 DO Work Phone: 01-28-2022 10:54-0400 Body height 149.86 cm Sukh Simpson Work Phone: [facility] 400 DO Work Phone: 01-28-2022 10:54-0400 Body mass index (BMI) [Ratio] 27.52 kg/m2 Sukh Simpson Work Phone: [facility] 400 DO Work Phone: 01-28-2022 10:54-0400 Body surface area Derived from formula 1.57 m2 Sukh Simpson Work Phone: [facility] 400 DO Work Phone: 01-28-2022 10:54-0400 Body weight 61.8 kg Sukh Simpson Work Phone: [facility] 400 DO Work Phone: 01-28-2022 10:54-0400 Diastolic blood pressure 78 mm[Hg] Sukh Pollock Work Phone: [facility] 400 DO Work Phone: 01-28-2022 10:54-0400 Systolic blood pressure 122 mm[Hg] Sukh Pollock Work Phone: [facility] 400 DO Work Phone: 01-28-2022 09:10-0400 Body height 149.86 cm Sukh Pollock Work Phone: [facility] 400 DO Work Phone: 01-28-2022 09:10-0400 Body mass index (BMI) [Ratio] 27.51 kg/m2 Sukh Pollock Work Phone: [facility] 400 DO Work Phone: 01-28-2022 09:10-0400 Body surface area Derived from formula 1.57 m2 Sukh Pollock Work Phone: [facility] 400 DO Work Phone: 01-28-2022 09:10-0400 Body temperature 97.8 [degF] Sukh Pollock Work Phone: [facility] 400 DO Work Phone: 01-28-2022 09:10-0400 Body weight 61.78 kg Sukh Pollock Work Phone: [facility] 400 DO Work Phone: 01-28-2022 09:10-0400 Diastolic blood pressure 72 mm[Hg] Sukh Pollock Work Phone: [facility] 400 DO Work Phone: 01-28-2022 09:10-0400 Heart rate 86 /min Sukh Pollock Work Phone: [facility] 400 DO Work Phone: 01-28-2022 09:10-0400 SaO2% (BldA) [Mass fraction] 98 % Sukh Pamela Newbill [facility] 400 DO Work Phone: 01-28-2022 09:10-0400 Systolic blood pressure 116 mm[Hg] Sukh M Newbill Work Phone: [facility] 400 DO Work Phone: 01-14-2022 11:21-0400 Body height 149.86 cm Sukh Pamela Newbill Work Phone: [place] [address] [address] Work Phone: 01-14-2022 11:21-0400 Body mass index (BMI) [Ratio] 26.69 kg/m2 Sukh Pamela Newbill Work Phone: [place] [address] [address] Work Phone: 01-14-2022 11:21-0400 Body surface area Derived from formula 1.55 m2 Sukh Pamela Newbill Work Phone: [place] [address] [address] Work Phone: 01-14-2022 11:21-0400 Body weight 59.93 kg Sukh Pamela Newbill Work Phone: [place] [address] [address] Work Phone: 01-14-2022 11:21-0400 Diastolic blood pressure 78 mm[Hg] Sukh M Newbill Work Phone: [place] [address] [address] Work Phone: 01-14-2022 11:21-0400 Systolic blood pressure 118 mm[Hg] Sukh M Newbill Work Phone: [place] [address] [address] Work Phone: 12-31-2021 11:57-0400 Body height 149.86 cm Sukh M Newbill Work Phone: [facility] Work Phone: 12-31-2021 11:57-0400 Body mass index (BMI) [Ratio] 26.96 kg/m2 Sukh Pamela Newramonital Work Phone: [facility] Work Phone: 12-31-2021 11:57-0400 Body surface area Derived from formula 1.55 m2 Sukh Pamela Newramonital Work Phone: [facility] Work Phone: 12-31-2021 11:57-0400 Body weight 60.56 kg Sukh Pamela Newramonital Work Phone: [facility] Work Phone: 12-31-2021 11:57-0400 Diastolic blood pressure 64 mm[Hg] Sukh Pamela Simpsonl Work Phone: [facility] Work Phone: 12-31-2021 11:57-0400 Heart rate 108 /min Sukh Pamela Simpsonl Work Phone: [facility] Work Phone: 12-31-2021 11:57-0400 Systolic blood pressure 106 mm[Hg] Sukh Pamela Simpsonl Work Phone: [facility] Work Phone: 09-01-2021 11:08-0500 Body height 149.86 cm Sukh Pamela Newbill Work Phone: [facility] Work Phone: 09-01-2021 11:08-0500 Body mass index (BMI) [Ratio] 26.46 kg/m2 Sukh Pamela Newbill Work Phone: [facility] Work Phone: 09-01-2021 11:08-0500 Body surface area Derived from formula 1.54 m2 Sukh Pamela Newramonital Work Phone: [facility] Work Phone: 09-01-2021 11:08-0500 Body temperature 99 [degF] Sukh Pollock Work Phone: [facility] Work Phone: 09-01-2021 11:08-0500 Body weight 59.42 kg Sukh Pollock Work Phone: [facility] Work Phone: 09-01-2021 11:08-0500 Diastolic blood pressure 69 mm[Hg] Sukh Pollock Work Phone: [facility] Work Phone: 09-01-2021 11:08-0500 Heart rate 123 /min Sukh Pollock Work Phone: [facility] Work Phone: 09-01-2021 11:08-0500 SaO2% (BldA) [Mass fraction] 99 % Sukh Pollock Work Phone: [facility] Work Phone: 09-01-2021 11:08-0500 Systolic blood pressure 107 mm[Hg] Sukh Pollock Work Phone: [facility] Work Phone: 06-24-2021 16:32-0500 Body height 149.86 cm Sukh Pollock Work Phone: [facility] Work Phone: 06-24-2021 16:32-0500 Body mass index (BMI) [Ratio] 26.64 kg/m2 Sukh Pollock Work Phone: [facility] Work Phone: 06-24-2021 16:32-0500 Body surface area Derived from formula 1.54 m2 Sukh Pollock Work Phone: [facility] Work Phone: 06-24-2021 16:32-0500 Body temperature 97.3 [degF] Sukh Pollock Work Phone: [facility] Work Phone: 06-24-2021 16:32-0500 Body weight 59.83 kg Sukh Pollock Work Phone: [facility] Work Phone: 06-24-2021 16:32-0500 Diastolic blood pressure 73 mm[Hg] Sukh Pollock Work Phone: [facility] Work Phone: 06-24-2021 16:32-0500 Heart rate 89 /min Sukh Pollock Work Phone: [facility] Work Phone: 06-24-2021 16:32-0500 SaO2% (BldA) [Mass fraction] 99 % Sukh Pollock Work Phone: [facility] Work Phone: 06-24-2021 16:32-0500 Systolic blood pressure 106 mm[Hg] Sukh Pollock Work Phone: [facility] Work Phone: 09-01-2019 13:34-0500 BMI (Body Mass Index) 25.13 kg/m2 [facility] Work Phone: 09-01-2019 13:34-0500 Body weight 58.06 kg [facility] Work Phone: 09-01-2019 13:34-0500 BP Diastolic 68 mm[Hg] [facility] Work Phone: 09-01-2019 13:34-0500 BP Systolic 112 mm[Hg] [facility] Work Phone: 09-01-2019 13:34-0500 BSA (Body Surface Area) 1.54 m2 [facility] Work Phone: 09-01-2019 13:34-0500 Height 152 cm [facility] Work Phone: Encounters Encounter Date Encounter Type Care Provider Facility Start: 05-17-2025 ambulatory [facility] Start: 05-09-2025 ambulatory Ayaka Doss Facility:[facility] Start: 04-19-2025 End: 04-19-2025 ambulatory AYAKA Manzanares [facility] Start: 04-18-2025 End: 04-18-2025 Patient encounter procedure Nelli Juárez CIRCUS SUPERVISOR-C -[facility] Work Phone: Start: 04-18-2025 End: 04-18-2025 ambulatory Ayaka Doss CIRCUS SUPERVISOR-C Work Phone: -[facility] Start: 04-07-2025 End: 04-07-2025 Emergency department patient visit AYAKA Manzanares [facility] Start: 04-05-2025 End: 04-05-2025 ambulatory MARCIE [facility] Start: 03-19-2025 End: 03-19-2025 ambulatory Ayaka Doss CIRCUS SUPERVISOR-C Work Phone: -Laboratory Specimen Start: 03-19-2025 End: 03-19-2025 Patient encounter procedure Kelsey Harrell CNM -Laboratory Specimen Work Phone: Start: 03-19-2025 End: 03-19-2025 Patient encounter procedure Kelsey Harrell CNM -[facility] Work Phone: Start: 03-19-2025 End: 03-19-2025 ambulatory Ayaka Doss CIRCUS SUPERVISOR-C Work Phone: -[facility] Start: 03-19-2025 End: 03-19-2025 ambulatory Kelsey Harrell Facility:[facility] Start: 03-13-2025 Registered Recurring Apple Browne CNPamela -Physical Therapy Work Phone: Start: 02-22-2025 End: 02-22-[address] Marcie Santana MD -[facility] Work Phone: Start: 02-22-2025 End: 02-22-[address] Daniel Schneider DO Work Phone: -[facility] Start: 02-20-2025 Registered Recurring Apple Browne CNM -Physical Therapy Work Phone: Start: 01-26-2025 End: 01-26-2025 Patient encounter procedure Apple Browne CNM -[facility] Work Phone: Start: 01-26-2025 End: 01-26-[address] Daniel Schneider DO Work Phone: -[facility] Start: 01-26-2025 End: 01-26-[address] [facility] Facility:[facility] Start: 01-12-2025 End: 01-12-[address] Kirsten Aragon DO -[facility] Work Phone: Start: 01-12-2025 End: 01-12-[address] Daniel Schneider DO Work Phone: [facility] Work Phone: Start: 01-04-2025 ambulatory [facility]AKA [facility] Facility:[facility] Start: 01-04-2025 End: 01-04-2025 Office outpatient new 60 minutes Johann Haines MD Work Phone: [facility] Comment on above: Chronic urticaria (P rimary Dx); Angioedema, initial encounter; Swelling Start: 01-04-2025 ambulatory STARR quezada:[facility] Start: 01-02-2025 End: 01-02-2025 ambulatory [facility] Start: 01-02-2025 End: 01-02-2025 Office outpatient new 45 minutes Chad Valdez MD Work Phone: [facility] Comment on above: OAB (overactive blad shannan) (Primary Dx); Urinary symptom or sign; Interstitial cystitis; Pelvic pain in female; Pelvic floor dysfunction Start: 12-26-2024 End: 12-26-2024 ambulatory [facility] Start: 12-22-2024 ambulatory [facility] Start: 11-24-2024 End: 11-24-2024 Office outpatient visit 15 minutes Ayaka Doss ASSESSMENT COORDINATOR-SYRUP FILTERER Work Phone: [facility] Comment on above: Allergic reaction, s ubsequent encounter (Primary Dx) Start: 11-24-2024 End: 11-24-2024 ambulatory [facility] Start: 11-23-2024 End: 11-23-2024 Emergency department patient visit Starr Torrez MD Work Phone: [facility] Start: 11-22-2024 End: 11-22-2024 [facility] Start: 11-16-2024 ambulatory [facility] Start: 11-05-2024 End: 11-05-2024 Emergency department patient visit Dr. Daniel Schneider DO Work Phone: -Emergency Department Work Phone: Start: 09-22-2024 End: 09-22-2024 Subsequent hospital visit by physician Lan X-Ray 1 [facility] Comment on above: Bronchitis Start: 09-22-2024 End: 09-22-2024 ambulatory [facility] Start: 09-20-2024 End: 09-20-2024 Office outpatient visit 15 minutes Ayaka Doss ASSESSMENT COORDINATOR-SYRUP FILTERER Work Phone: [facility] Comment on above: Bronchitis (Primary Dx); , unspecified gestational age [facility] Start: 09-20-2024 End: 09-20-2024 ambulatory [facility] Start: 09-09-2024 End: 09-09-2024 Patient encounter procedure Evens Palacios ASSESSMENT COORDINATOR-SYRUP FILTERER Work Phone: [facility] Comment on above: Acute non-recurrent maxillary sinusitis (Primary Dx); Acute upper respiratory infection Start: 09-09-2024 End: 09-09-2024 ambulatory [facility] Start: 08-31-2024 End: 08-31-2024 Subsequent hospital visit by physician Lan Melo [address] [place] [address] Comment on above: UTI symptoms Start: 08-31-2024 End: 08-31-2024 ambulatory [facility] Start: 08-30-2024 End: 08-30-2024 Office outpatient visit 15 minutes [facility] ASSESSMENT COORDINATOR-SYRUP FILTERER Work Phone: [facility] Comment on above: UTI symptoms Start: 08-30-2024 End: 08-30-2024 ambulatory [facility] Start: 06-14-2024 End: 06-14-2024 Phys/qhp telephone evaluation 11-20 min [facility] ASSESSMENT COORDINATOR-SYRUP FILTERER Work Phone: [facility] Comment on above: Panic attacks (Prima ry Dx); Anxiety and depression Start: 06-14-2024 End: 06-14-2024 ambulatory [facility] Start: 06-01-2024 End: 06-01-2024 ambulatory JAYDEN [facility] Start: 05-02-2024 End: 05-02-2024 Patient encounter procedure Evens Palacios ASSESSMENT COORDINATOR-SYRUP FILTERER Work Phone: [facility] Comment on above: Allergic contact shannan 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 (Primary Dx) Start: 05-02-2024 End: 05-02-2024 ambulatory [facility] Start: 04-28-2024 End: 04-28-2024 Subsequent hospital visit by physician Jayden Taylor MD Work Phone: [facility] Comment on above: Endometriosis determ ined by laparoscopy (Primary Dx); Post-op pain Start: 04-27-2024 End: 04-27-2024 Office outpatient visit 25 minutes Ayaka Glenna Doss ASSESSMENT COORDINATOR-SYRUP FILTERER Work Phone: [facility] Comment on above: Health maintenance e xamination (Primary Dx); Gastroesophageal reflux disease without esophagitis Start: 04-27-2024 End: 04-27-2024 Patient encounter status Ayaka Rootman ASSESSMENT COORDINATOR-SYRUP FILTERER Work Phone: [facility] Work Phone: Start: 04-27-2024 End: 04-27-2024 ambulatory [facility] Start: 04-27-2024 End: 04-27-2024 Encounter for general adult medical examination without abnormal findings [facility] Start: 04-19-2024 End: 04-19-2024 ambulatory NO ASSIGNED PCP GENERIC PROVIDER [facility] Start: 04-19-2024 End: 04-19-2024 Encounter for other preprocedural examination NO ASSIGNED PCP GENERIC PROVIDER [facility] Start: 12-22-2023 End: 12-22-2023 Office outpatient visit 25 minutes Jayden Taylor MD Work Phone: [facility] Comment on above: Endometriosis determ ined by laparoscopy (Primary Dx); Dyspareunia in female Start: 10-29-2023 End: 10-29-2023 Postop follow up visit related to original px Jameel Hernandez MD Work Phone: [facility] Comment on above: Postoperative visit (Primary Dx); Endometriosis determined by laparoscopy Start: 10-14-2023 End: 10-14-2023 Subsequent hospital visit by physician Jameel Hernandez MD Work Phone: [facility] [place] Comment on above: Chronic pelvic pain in female (Primary Dx); PONV (postoperative nausea and vomiting) Start: 09-24-2023 End: 09-24-2023 Office outpatient visit 15 minutes Jameel Hernandez MD Work Phone: [facility] Comment on above: Chronic pelvic pain in female (Primary Dx); Dyspareunia in female Start: 04-28-2023 End: 04-28-2023 Office outpatient visit 25 minutes Sukh M Newbill PA-C Work Phone: [facility] Comment on above: Anxiety and depressi on (Primary Dx); Panic attack; Nausea in adult Start: 03-04-2023 End: 03-04-2023 Office outpatient visit 25 minutes Sukh M Newbill PA-C Work Phone: [facility] Comment on above: Anxiety and depressi on (Primary Dx); Injury of sacrum, initial encounter Start: 02-15-2023 ambulatory MD [facility]DA [facility] Facility:[id number] Start: 02-15-2023 Periodic preventive med est patient 18-39 yrs Sukh M Newbill Work Phone: [address] Work Phone: Start: 02-01-2023 ambulatory Sukh Newbill Facility:[id number] Start: 02-01-2023 ambulatory Sukh Newbill Facility:[id number] Start: 01-26-2023 End: 01-26-2023 Office outpatient visit 40 minutes Sukh M Newbill PA-C Work Phone: [facility] Comment on above: Anxiety and depressi on (Primary Dx); Panic attack; Bilious vomiting with nausea; Acute bilateral low back pain, unspecified whether sciatica present Start: 12-17-2022 Office outpatient ne w 45 minutes Sukh M Newbill Work Phone: [address] Work Phone: Start: 12-17-2022 ambulatory Jayden Taylor Facility :[id number] Start: 12-02-2022 NPV, Provider: Mariah Lr, Status: Pen, Time: 1:00 PM Sukh M Newbill Work Phone: [facility] Work Phone: Start: 12-02-2022 ambulatory Mariah Lr Facility: [id number] Start: 11-24-2022 Office outpatient vi sit 15 minutes Sukh Pollock Work Phone: [address] Work Phone: Start: 11-24-2022 ambulatory MD SAHRDA RAYGOZA CIA CHÁVEZ Facility:[id number] Start: 11-19-2022 End: 11-19-2022 Emergency department patient visit Paola Pickard [facility] Emergency 10 Start: 11-03-2022 End: 11-03-2022 Office outpatient visit 25 minutes Sukh Pollock PA-C Work Phone: [facility] Comment on above: Anxiety and depressi on (Primary Dx); Panic attacks; Pharyngitis, unspecified etiology Start: 10-31-2022 End: 10-31-2022 Emergency department patient visit Freya Dial [facility] 01 Start: 09-28-2022 Chart Update Sukh Pollock Work Phone: [facility] Work Phone: Start: 09-23-2022 AUDIT Sukh Pollock Work Phone: [facility] Work Phone: Start: 09-21-2022 ambulatory Mr. Sukh lazar Phill Facility:[id number] Start: 09-21-2022 Office outpatient vi sit 25 minutes Sukh Pollock Work Phone: [facility] Work Phone: Start: 08-27-2022 AUDIT Sukh Pollock Work Phone: [facility] Work Phone: Start: 07-02-2022 ambulatory Mr. Sukh lazar Tatianacady Facility:[id number] Start: 06-01-2022 AUDIT Sukh Pollock Work Phone: [facility] Work Phone: Start: 05-22-2022 AUDIT Sukh Santiago Newbill Work Phone: [facility] Work Phone: Start: 05-21-2022 Office outpatient vi sit 25 minutes Sukh Santiago Newbill Work Phone: [facility] Work Phone: Start: 05-21-2022 ambulatory Mr. Sukh Pollock Facility:[id number] Start: 04-22-2022 Office outpatient vi sit 25 minutes Sukh Pamela Newbill Work Phone: [facility] Work Phone: Start: 04-22-2022 ambulatory Mr. Sukh Pollock Facility:[id number] Start: 02-11-2022 Office outpatient vi sit 25 minutes Sukh Pamela Newbill Work Phone: [facility] 400 DO Work Phone: Start: 01-28-2022 FUV, Provider: Sharda Chávez, Status: Pen, Time: 10:45 AM Sukh Pamela Griffinbill Work Phone: [facility] [address] Work Phone: Start: 01-28-2022 NPV, Provider: Solo Barnes, Status: Pen, Time: 9:00 AM Sukh Pamela Newbill Work Phone: [facility] [address] Work Phone: Start: 01-28-2022 Office consultation new/estab patient 80 min Sukh M Newbill Work Phone: [facility] 400 DO Work Phone: Start: 01-26-2022 Chart Update Sukh Pamela Newbill Work Phone: [facility] [address] Work Phone: Start: 01-24-2022 Rx Renewal Sukh Pollock Work Phone: [facility] Work Phone: Start: 01-20-2022 Chart Update Sukh Pollock Work Phone: [facility] [address] [address] Work Phone: Start: 01-19-2022 Chart Update Sukh Pamela Pollock Work Phone: [facility] [address] [address] Work Phone: Start: 01-16-2022 Chart Update Sukh Pollock Work Phone: [facility] [address] [address] Work Phone: Start: 01-15-2022 Chart Update Sukh Pollock Work Phone: [facility] [address] [address] Work Phone: Start: 01-14-2022 Initial preventive medicine new pt age 18-39yrs Sukh Pollock Work Phone: [facility] [address] [address] Work Phone: Start: 01-01-2022 Chart Update Sukh Pollock Work Phone: [facility] Work Phone: Start: 12-31-2021 Office outpatient vi sit 15 minutes Sukh Pamela Pollock Work Phone: [facility] Work Phone: Start: 12-30-2021 AUDIT Sukh Pamela Eliasdean Work Phone: [facility] Work Phone: Start: 09-02-2021 Chart Update Sukh Pamela Eliasdean Work Phone: [facility] Work Phone: Start: 09-01-2021 Office outpatient vi sit 25 minutes Sukh Griffinramonital Work Phone: [facility] Work Phone: Start: 06-24-2021 Current tobacco non- user cad cap copd pv dm Sukh Pollock Work Phone: [facility] Work Phone: Procedures Date Procedure Procedure Detail Performing Clinician Start: 03-19-2025 Urine culture Ayaka huitron CIRCUS SUPERVISOR-C Work Phone: Start: 01-26-2025 Hepatitis C antibody [...] HCV Quant by PCR testing - HCVPCR [id number] Non Reactive: < 0.8 Equivocal: >/= 0.8 [...] POCT SARS-COV-2/FLU/ RSV PCR SYMPTOMATIC Evens Palacios ASSESSMENT COORDINATOR-SYRUP FILTERER Work Phone: Start: 08-30-2024 Urnls dip stick/tabl et rgnt auto w/o microscopy Ayaka Glenna Doss ASSESSMENT COORDINATOR-SYRUP FILTERER Work Phone: Start: 04-28-2024 End: 04-28-2024 PULSE OXIMETRY, CONTINUOUS Kenny alfaro MD Work Phone: Start: 04-28-2024 VERAB/VERIFY ABORH Jan Taylor MD Work Phone: Start: 04-28-2024 Urine test visual color cmprsn meths Jayden Taylor MD Work Phone: Start: 04-28-2024 Blood typing serolog ic rh (d) Jayden aTylor MD Work Phone: Start: 01-14-2022 Microscopic observat [...] RSV VACCINE (1 - 1-dose 75+ series) [facility] Start: 2047 Zoster Vaccines (1 of 2) Zoster Vaccines (1 of 2) [facility] Start: 02-03-2030 DTaP/Tdap/Td Vaccines (8 - Td or Tdap) DTaP/Tdap/Td Vaccines (8 - Td or Tdap) [facility] Start: 02-03-2030 Tetanus vaccination TETANUS U [facility] Start: 12-31-2026 Lipid panel Lipid Panel [facility] Start: 10-05-2025 End: 10-05-2025 Patient encounter procedure 10/05/2025 11:40 AM EST Office Visit [facility] [address] [place] [id number] [place] [address] [address] [facility], [facility] [address] [place] [address] [facility] Start: 05-22-2025 End: 05-22-2025 Patient encounter procedure 05/22/2025 9:00 AM EDT Office Visit Elsy Michael [address] [facility] [address] [place] [id number] Jayden Taylor MD [address] [facility], [facility] [address] [place] [address] Elsy Michael Start: 04-27-2025 End: 04-27-2025 Admission to same day surgery center 04/27/2025 11:00 AM EDT - 04/27/2025 12:00 PM EDT Surgery [facility] [place] [address] [place] [address] Jayden Taylor MD [address] [facility], [facility] [address] [place] [address] EXAM UNDER ANESTHESIA/ PELVIC FLOOR BOTOX INJECTION AD ANY INDICATED PROCEDURE [ (CPT )] [facility] [place] Comment on above: EXAM UNDER ANESTHESIA/ PELVIC FLOOR BOTO X INJECTION AD ANY INDICATED PROCEDURE [ (CPT )] Start: 04-27-2025 End: 04-27-2025 Injection single/biochemical development engineer trigger point 3/> muscles INJECTION, TRIGGER POINT Pelvic pain 04/27/2025 11:00 AM EDT [facility] [place] Start: 04-27-2025 Subsequent hospital visit by physician 04/27/2025 9:30 AM EDT Hospital Encounter [facility] [place] [address] [place] [address] Jayden Taylor MD [address] Nisreen Burgos [facility], [address] [place] [address] [facility] [place] Start: 04-10-2025 End: 04-10-2025 Telemedicine consultation with patient 04/10/2025 11:20 AM EDT Telemedicine [facility] [address] [place] [address] [place] [address] [facility], [address] [place] [address] [facility] Start: 04-02-2025 Influenza vaccination INFLUENZA VACCINE (Season Ended) [facility] Start: 03-02-2025 End: 03-02-2025 Telemedicine consultation with patient 03/02/2025 11:30 AM EDT Telemedicine [facility] [address] [place], [place] [id number] Johann Haines MD [address] [facility] [address] [place] [address] [facility] [place] Start: 02-01-2025 End: 02-01-2025 Patient encounter procedure 02/01/2025 9:40 AM EDT Office Visit [facility] [address] [facility] [address] [place] [address] Elizabeth Angel MD [facility] [address] [facility] [address] [place] [address] [facility] Start: 01-26-2025 CBC W Auto Differential panel - Blood [facility] Start: 01-26-2025 Hepatitis C antibody measurement [facility] Start: 01-26-2025 Rubella IgG measurement [facility] Start: 01-26-2025 Serologic test for syphilis [facility] Start: 01-26-2025 [facility] Start: 01-26-2025 Bacteria identified in Urine by Culture Urine Culture [facility] Start: 01-26-2025 Chlamydia deoxyribonucleic acid detection [facility] Start: 01-26-2025 [facility] Start: 01-14-2025 Screening for malignant neoplasm of cervix [facility] Start: 01-09-2025 End: 01-09-2025 Patient encounter procedure 01/09/2025 11:20 AM EDT Office Visit [facility] [address] [place] [address] [place] [address] [facility], [address] [address] [facility] Start: 01-08-2025 End: 01-08-2025 Patient encounter procedure 01/08/2025 10:00 AM EDT Consult Elsy Michael [address]os [facility] [address] [place] [phone] Farida Luong, ASSESSMENT COORDINATOR-SYRUP FILTERER [address] [facility], Aiyana Michael, [facility] [address] [place], [place] [phone] Elsy Michael Start: 01-04-2025 End: 01-04-2026 2,3-DINOR-11 BETA-PROSTAGLANDIN F2 ALPHA, 24HR URINE 2,3-DINOR-11 BETA-PROSTAGLANDIN F2 ALPHA, 24HR URINE Fluids Routine Chronic urticaria Expected: 01/04/2025, Expires: 01/04/2026 [facility] Comment on above: Expected: 01/04/2025, Expires: Start: 01-04-2025 End: 01-04-2026 [id number],3-GAL ACTOSE IGE [facility] Comment on above: Expected: 01/04/2025, Expires: Start: 01-04-2025 End: 01-04-2026 IMMUNOGLOBULIN IGE [facility] Comment on above: Expected: 01/04/2025, Expires: Start: 01-04-2025 End: 01-04-2026 LEUKOTRIENE E4, URINE LEUKOTRIENE E4, URINE Fluids Routine Chronic urticaria Expected: 01/04/2025, Expires: 01/04/2026 [facility] Comment on above: Expected: 01/04/2025, Expires: Start: 01-04-2025 End: 01-04-2026 MAST CELL TRYPTASE [facility] Comment on above: Expected: 01/04/2025, Expires: Start: 01-04-2025 End: 01-04-2026 N-METHYLHISTAMINE, 24HR URINE N-METHYLHISTAMINE, 24HR URINE Fluids Routine Chronic urticaria Expected: 01/04/2025, Expires: 01/04/2026 [facility] Comment on above: Expected: 01/04/2025, Expires: Start: 01-04-2025 End: 01-04-2025 Patient encounter procedure 01/04/2025 10:00 AM EDT Office Visit Elsy Michael [address]is[address] Burgos [address] [phone] Jayden Taylor MD [address] [facility], [facility] [address] [place] [address] Elsy Michael Start: 12-28-2024 End: 12-28-2024 Admission to same day surgery center 12/28/2024 11:00 AM EDT - 12/28/2024 12:00 PM EDT Surgery [facility] [place] [address] [place] [address] Jayden Taylor MD [address] [facility], [address] [place] [address] EXAM UNDER ANESTHESIA/ PELVIC FLOOR BOTOX INJECTION AD ANY INDICATED PROCEDURE [ (CPT )] [facility] [place] Comment on above: EXAM UNDER ANESTHESIA/ PELVIC FLOOR BOTO X INJECTION AD ANY INDICATED PROCEDURE [ (CPT )] Start: 12-28-2024 End: 12-28-2024 Injection single/biochemical development engineer trigger point 3/> muscles INJECTION, TRIGGER POINT Pelvic pain 12/28/2024 11:00 AM EDT [facility] Work Phone: Start: 12-28-2024 Subsequent hospital visit by physician 12/28/2024 9:30 AM EDT Hospital Encounter [facility] [place] [address] [place] [address] Jayden Taylor MD [address] [facility], [address] [place], [place] [phone] [facility] [place] Start: 11-10-2024 End: 11-10-2024 Patient encounter procedure 11/10/2024 3:00 PM EDT Office Visit [facility] [address] [facility] [address] [place] [phone] [place] [address] [facility], [facility] [address] [place] [address] [facility] Start: 11-05-2024 [facility] Start: 09-20-2024 End: 09-20-2025 Choriogonadotropin.beta subunit [Units/volume] in Serum or Plasma HCG, quantitative, Lab Routine , unspecified gestational age ([facility]) Expected: 09/20/2024 (Approximate), Expires: 09/20/2025 [facility] Work Phone: Comment on above: Expected: 09/20/2024 (Approximate), Expi res: 09/20/2025 Start: 09-20-2024 End: 09-20-2025 XR Chest 2 Views XR chest 2 views Imaging Rou siobhan Bronchitis Expected: 09/20/2024, Expires: 09/20/2025 [facility] Service Area Work Phone: Comment on above: Expected: 09/20/2024, Expires: Start: 09-01-2024 End: 09-01-2024 Patient encounter procedure 09/01/2024 4:45 PM EST Appointment [facility] [address] [place] [address] [facility] Start: 08-30-2024 End: 08-30-2025 US Kidney - bilateral and Urinary bladder US renal complete Imaging Routine UTI symptoms Expected: 08/30/2024, Expires: 08/30/2025 [facility] Service Area Work Phone: Comment on above: Expected: 08/30/2024, Expires: Start: 06-01-2024 End: 06-01-2024 Patient encounter procedure 06/01/2024 10:30 AM EDT Office Visit Elsy Michael 1000 Nisreen Burgos [facility] [address] [place] [phone] Jayden Taylor MD [address] [facility], [address] [place] [address] Elsy Michael Start: 04-28-2024 End: 04-28-2024 Admission to same day surgery center 04/28/2024 7:30 AM EDT - 04/28/2024 10:30 AM EDT Surgery [facility] [place] [address] [place] [address] Jayden Taylor MD [address] [facility], [address] [place] [address] ROBOT ASSIST ENDOMETRIOSIS EXCISION/ CHROMOPERTUBATION/ CYSTOSCOPY/ POSSIBLE BLADDER RESECTION/ ANY INDICATED PROCEDURE [03500 (CPT )] [facility] [place] Comment on above: ROBOT ASSIST ENDOMETRIOSIS EXCISION/ CHR OMOPERTUBATION/ CYSTOSCOPY/ POSSIBLE BLADDER RESECTION/ ANY INDICATED PROCEDURE [27289 (CPT )] Start: 04-28-2024 End: 04-28-2024 Laps abd prtm&omentum dx w/wo spec br/wa spx [facility] [place] Start: 04-28-2024 Subsequent hospital visit by physician 04/28/2024 6:00 AM EDT Hospital Encounter [facility] [place] [address] [place] [address] Jayden Taylor MD [address] [facility], [address] [place] [address] [facility] [place] Start: 04-27-2024 End: 04-27-2025 CBC W Auto Differential panel - Blood CBC and Auto Differential Lab Routine Health maintenance examination Expected: 04/27/2024 (Approximate), Expires: 04/27/2025 [facility] Service Area Work Phone: Comment on above: Expected: 04/27/2024 (Approximate), Expi res: 04/27/2025 Start: 04-27-2024 End: 04-27-2025 Comprehensive metabolic 2000 panel - Serum or Plasma Comprehensive metabolic panel Lab Routine Health maintenance examination Expected: 04/27/2024 (Approximate), Expires: 04/27/2025 [facility] Work Phone: Comment on above: Expected: 04/27/2024 (Approximate), Expi res: 04/27/2025 Start: 04-27-2024 End: 04-27-2025 TSH with reflex to Free T4 if abnormal TSH with reflex to Free T4 if abnormal Lab Routine Health maintenance examination Expected: 04/27/2024 (Approximate), Expires: 04/27/2025 [facility] Work Phone: Comment on above: Expected: 04/27/2024 (Approximate), Expi res: 04/27/2025 Start: 04-02-2024 COVID-19 Vaccine ( season) COVID-19 Vaccine ( season) [facility] Start: 04-02-2024 COVID-19 Vaccine ( season) COVID-19 Vaccine () [facility] Start: 04-02-2024 Influenza vaccination [facility] Start: 02-18-2024 Patient encounter procedure ANNUAL, Provider: Sharda Chávez, Status: Pen, Time: 10:45 AM Carlos-Angel [facility] Work Phone: Start: 02-18-2024 End: 02-18-2024 Patient encounter procedure [facility] Start: 10-29-2023 End: 10-29-2023 Patient encounter procedure 10/29/2023 3:45 PM EDT Office Visit [facility] [address] [place] [address] Jameel Hernandez MD [address] [facility], [address] [phone] [facility] Start: 10-21-2023 End: 10-21-2023 Patient encounter procedure 10/21/2023 3:50 PM EDT Office Visit [facility] [address] [place] [phone] Sukh Pollock PA-C [facility], [address] [address] [facility] Start: 10-14-2023 Subsequent hospital visit by physician 10/14/2023 Hospital Encounter [facility] [place] [address] [place] [address] Jameel Hernandez MD [address] [facility], [facility] [address] [place] [address] [facility] [place] Start: 09-06-2023 End: 09-06-2023 Patient encounter procedure 09/06/2023 4:10 PM EST Office Visit [facility] [address] [place] [phone] Sukh Pollock PA-C [address] [place] [address] Physician [place], [place] [phone] [facility] Start: 05-27-2023 End: 05-27-2023 Patient encounter procedure 05/27/2023 12:50 PM EDT Office Visit [facility] [address] [place] [phone] Sukh Pollock PA-C [address] [place] [address] [facility] Start: 04-02-2023 COVID-19 Vaccine ( season) COVID-19 Vaccine () [facility] Start: 04-02-2023 Influenza vaccination [facility] Start: 03-04-2023 FUV, Provider: Nirmala Alex, Status: Pen, Time: 1:30 PM FUV, Provider: Nirmala Alex, Status: Pen, Time: 1:30 PM [id number] Work Phone: Start: 03-04-2023 End: 03-04-2023 Patient encounter procedure 03/04/2023 9:30 AM EDT Office Visit [facility] [address] [place] [phone] Sukh Pollock PA-C [address] [place] [address] [facility] Start: 02-15-2023 Patient encounter procedure [facility] Start: 01-26-2023 End: 01-27-2024 [facility] Work Phone: Comment on above: Expected: 01/26/2023, Expires: Start: 01-26-2023 End: 01-27-2024 XR Lumbar spine 4 Views XR lumbar spine complete 4+ views Imaging Routine Acute bilateral low back pain, unspecified whether sciatica present Expected: 01/26/2023, Expires: 01/27/2024 [facility] Service Area Work Phone: Comment on above: Expected: 01/26/2023, Expires: Start: 01-05-2023 FUV, Provider: Sukh Pollock, Status: Pen, Time: 9:30 AM FUV, Provider: Sukh Pollock, Status: Pen, Time: 9:30 AM [facility] Work Phone: Start: 01-05-2023 End: 01-05-2023 Patient encounter procedure 01/05/2023 9:30 AM EDT Office Visit [facility] [address] [place] [address] Sukh Plolock, PAVeraC [address] [place] [address] [facility] Start: 12-17-2022 FUV, Provider: Jayden Taylor, Status: Pen, Time: 8:45 AM FUV, Provider: Jayden Taylor, Status: Pen, Time: 8:45 AM [facility] Work Phone: Start: 12-02-2022 NPV, Provider: Mariah Lr, Status: Pen, Time: 1:00 PM NPV, Provider: aMriah Lr, Status: Pen, Time: 1:00 PM [facility] Work Phone: Start: 11-30-2022 NEWPROB, Provider: Sharda Chávez, Status: Pen, Time: 1:45 PM [facility], Provider: Sharda Chávez, Status: Pen, Time: 1:[address] Work Phone: Start: 07-02-2022 FUV, Provider: Sukh Pollock, Status: Pen, Time: 4:30 PM FUV, Provider: Sukh Pollock, Status: Pen, Time: 4:30 PM [facility] Work Phone: Start: 05-21-2022 FUV, Provider: Sukh Pollock, Status: Pen, Time: 4:30 PM FUV, Provider: Sukh Pollock, Status: Pen, Time: 4:30 PM [facility] Work Phone: Start: 02-25-2022 FUV, Provider: Solo Barnes, Status: Pen, Time: 9:00 AM FUV, Provider: Solo Barnes, Status: Pen, Time: 9:00 AM [facility] [address] Work Phone: Start: 02-16-2022 PFT, Provider: [facility] PFT ROOM,[id number], Status: Pen, Time: 1:00 PM PFT, Provider: [facility] PFT ROOM,[id number], Status: Pen, Time: 1:00 PM MP-Pulmonary [facility] [address] Work Phone: Start: 02-11-2022 FUV, Provider: Solo Barnes, Status: Pen, Time: 10:00 AM FUV, Provider: Solo Barnes, Status: Pen, Time: 10:00 AM MP-Pulmonary [facility] [address] Work Phone: Start: 01-28-2022 FUV, Provider: Sharda Chávez, Status: Pen, Time: 10:45 AM FUV, Provider: Sharda Chávez, Status: Pen, Time: 10:45 AM [facility] [address] Work Phone: Start: 01-28-2022 NPV, Provider: Solo Barnes, Status: Pen, Time: 9:00 AM NPV, Provider: Solo Barnes, Status: Pen, Time: 9:00 AM [facility] [address] Work Phone: Start: 01-14-2022 NPV, Provider: Sharda Chávez, Status: Pen, Time: 11:00 AM NPV, Provider: Sharda Chávez, Status: Pen, Time: 11:00 AM [facility] Work Phone: Start: 2018 Screening for malignant neoplasm of cervix [facility] Start: 2016 Pneumococcal Vaccine: Pediatrics and At-Risk Adult Patients (1 of 2 - PCV) Pneumococcal Vaccine: Pediatrics and At-Risk Adult Patients (1 of 2 - PCV) [facility] Start: 2015 Diabetes mellitus screening Diabetes Screening [facility] Start: 2015 Hepatitis C screening Hepatitis C Screening [facility] Start: 2012 HIV screening HIV SCREENING DISCUSSION [facility] Start: 06-12-2010 Varicella vaccination [facility] Start: 2003 Pneumococcal Vaccine: Pediatrics (0 to 5 Years) and At-Risk Patients (6 to 64 Years) (1 - PCV) Pneumococcal Vaccine: Pediatrics (0 to 5 Years) and At-Risk Patients (6 to 64 Years) (1 - PCV) [facility] Start: 2003 Pneumococcal Vaccine: Pediatrics (0 to 5 Years) and At-Risk Patients (6 to 64 Years) (1 of 2 - PCV) Pneumococcal Vaccine: Pediatrics (0 to 5 Years) and At-Risk Patients (6 to 64 Years) (1 of 2 - PCV) [facility] Start: 1997 COVID-19 Vaccine (#1) COVID-19 Vaccine (#1) [facility] Start: 1997 Hepatitis C screening HEPATITIS C VIRUS SCREENING [facility] Start: 1997 HIV screening HIV Screening [facility] Start: 1997 Yearly Adult Physical Yearly Adult Physical [facility] End: 10-14-2023 Continuous Pulse oximetry, In Phase 1 [facility] Service Area Work Phone: Comment on above: Continuous until discontinued starting 0 10/14/2023 Erythrocyte mean corpuscular volume determination [facility] Hematocrit [Volume Fraction] of Blood [facility] Hemoglobin [Mass/volume] in Blood [facility] Hepatitis B virus surface Ag [Presence] in Serum [facility] History of appendectomy History of append ectomy [facility] History of colonoscopy [facility] Laps abd prtm&omentu m dx w/wo spec br/wa spx Exploration Laparoscopy Chronic pelvic pain in female [facility] Laps abd prtm&omentu m dx w/wo spec br/wa spx Exploration Laparoscopy Endometriosis determined by laparoscopy [facility] OR Leukocytes [#/volume ] in Blood [facility] Mean corpuscular hemoglobin concentration determination [facility] Mean corpuscular hemoglobin determination [facility] Neisseria gonorrhoea e rRNA [Presence] in Unspecified specimen by SHANAE with probe detection [facility] Neutrophil count [facility] Neutrophil percent differential count [facility] Past history of procedure History of esophagogastroduodenoscopy (EGD) [facility] Patient Education Living with Endometrios is [facility] Work Phone: Patient referral [facility] Work Phone: PCR test for Chlamyd ia trachomatis [facility] Platelets [#/volume] in Blood [facility] Red blood cell count [facility] Red cell distributio n width determination [facility] Surgical pathology study [facility] Service Area Work Phone: Comment on above: Release Upon Ordering for 1 Occurrences starting 04/28/2024, 1 completed Urine culture [facility] End: 08-31-2024 US Kidney - bilateral and Urinary bladder [facility] Service Area Work Phone: Comment on above: Once for 1 Occurrences starting 08/31/19 until 08/31/2024 [place] teeth extracted [place] teeth extra cted [facility] End: 09-22-2024 XR Chest 2 Views [facility] Service Area Work Phone: Comment on above: Once for 1 Occurrences starting 09/22/19 until 09/22/2024 [facility] Immunizations Immunization Date Immunization Notes Care Provider Fa quan 02-04-2020 tetanus toxoid, redu bette diphtheria toxoid, and acellular pertussis vaccine, adsorbed Sukh Pollock Work Phone: [facility] 02-06-2014 meningococcal polysaccharide (groups A, C, Y and W-135) diphtheria toxoid conjugate vaccine (MCV4P) Sukh Pollock Work Phone: [facility] 05-15-2011 hepatitis A vaccine, pediatric/adolescent dosage, 2 dose schedule Sukh Pamela Newbill Work Phone: [facility] Work Phone: 05-15-2011 hepatitis A vaccine, unspecified formulation Sukh Newbill PA-C Work Phone: [facility] Work Phone: 05-15-2011 influenza, seasonal, injectable Sukh M Newbill Work Phone: [facility] 05-15-2011 influenza virus vacc ine, unspecified formulation Sukh Newbill PA-C Work Phone: [facility] Work Phone: 05-15-2010 influenza virus vacc ine, live, attenuated, for intranasal use Sukh Pamela Newbill Work Phone: [facility] Work Phone: 11-20-2009 hepatitis A vaccine, pediatric/adolescent dosage, 2 dose schedule Sukh M Newbill Work Phone: [facility] Work Phone: 11-20-2009 hepatitis A vaccine, unspecified formulation Sukh Newbill PA-C Work Phone: [facility] Work Phone: 11-20-2009 HPV, unspecified formulation Sukh Newbill PA-C Work Phone: [facility] Work Phone: 11-20-2009 human papilloma viru s vaccine, quadrivalent Sukh M Newbill Work Phone: [facility] Work Phone: 07-17-2009 HPV, unspecified formulation Sukh Newbill PA-C Work Phone: [facility] Work Phone: 07-17-2009 human papilloma viru s vaccine, quadrivalent Sukh M Newbill Work Phone: [facility] Work Phone: 05-15-2009 HPV, unspecified formulation Sukh Pollock PA-C Work Phone: [facility] Work Phone: 05-15-2009 human papilloma viru s vaccine, quadrivalent Sukh Pollock Work Phone: [facility] Work Phone: 05-15-2009 influenza, seasonal, injectable, preservative free Sukh Pollock Work Phone: [facility] Work Phone: 05-15-2009 meningococcal polysaccharide (groups A, C, Y and W-135) diphtheria toxoid conjugate vaccine (MCV4P) Sukh Pollock Work Phone: [facility] 05-15-2009 tetanus toxoid, redu bette diphtheria toxoid, and acellular pertussis vaccine, adsorbed Sukh Pollock Work Phone: [facility] 03-23-2002 diphtheria, tetanus toxoids and acellular pertussis vaccine Sukh Simpsonl PA-C Work Phone: [facility] Work Phone: 03-23-2002 diphtheria, tetanus toxoids and acellular pertussis vaccine, unspecified formulation Sukh Pollock Work Phone: [facility] Work Phone: 03-23-2002 pneumococcal conjuga te vaccine, 7 valent Sukh Simpsonl Work Phone: [facility] Work Phone: 03-23-2002 pneumococcal Conjuga te, unspecified formulation Sukh Simpsonl PA-C Work Phone: [facility] Work Phone: 03-23-2002 poliovirus vaccine, inactivated Sukh Pollock Work Phone: [facility] Work Phone: 03-23-2002 poliovirus vaccine, unspecified formulation Sukh Newbill PA-C Work Phone: [facility] Work Phone: 02-09-2001 pneumococcal conjuga te vaccine, 7 valent Sukh Santiago Newbill Work Phone: [facility] Work Phone: 02-09-2001 pneumococcal Conjuga te, unspecified formulation Sukh Newbill PA-C Work Phone: [facility] Work Phone: 09-01-2000 diphtheria, tetanus toxoids and acellular pertussis vaccine, unspecified formulation Sukh Griffinbill Work Phone: [facility] Work Phone: 09-01-2000 measles, mumps and rubella virus vaccine Sukh Griffinbill Work Phone: [facility] Work Phone: 11-19-1999 diphtheria, tetanus toxoids and acellular pertussis vaccine Sukh Simpsonl PA-C Work Phone: [facility] Work Phone: 11-19-1999 diphtheria, tetanus toxoids and acellular pertussis vaccine, unspecified formulation Sukh Griffinbill Work Phone: [facility] Work Phone: 11-19-1999 haemophilus influenz ae type b conjugate and Hepatitis B vaccine Sukh Pamela Newbill Work Phone: [facility] Work Phone: 11-19-1999 haemophilus influenz ae type b vaccine, conjugate unspecified formulation Sukh Newbill PA-C Work Phone: [facility] Work Phone: 11-19-1999 hepatitis B vaccine, unspecified formulation Sukh Newbill PA-C Work Phone: [facility] Work Phone: 11-19-1999 measles, mumps and rubella virus vaccine Sukh Simpsonl Work Phone: [facility] Work Phone: 11-19-1999 poliovirus vaccine, unspecified formulation Sukh Newbill PA-C Work Phone: [facility] Work Phone: 11-19-1999 trivalent poliovirus vaccine, live, oral Sukh Pollock Work Phone: [facility] Work Phone: 01-01-1999 diphtheria, tetanus toxoids and acellular pertussis vaccine Sukh Newbill PA-C Work Phone: [facility] Work Phone: 01-01-1999 diphtheria, tetanus toxoids and acellular pertussis vaccine, unspecified formulation Sukh Pollock Work Phone: [facility] Work Phone: 01-01-1999 haemophilus influenz ae type b conjugate and Hepatitis B vaccine Sukh Griffinbill Work Phone: [facility] Work Phone: 01-01-1999 haemophilus influenz ae type b vaccine, conjugate unspecified formulation Sukh Newbill PA-C Work Phone: [facility] Work Phone: 01-01-1999 hepatitis B vaccine, unspecified formulation Sukh Newbill PA-C Work Phone: [facility] Work Phone: 01-01-1999 poliovirus vaccine, unspecified formulation Sukh Newbill PA-C Work Phone: [facility] Work Phone: 01-01-1999 trivalent poliovirus vaccine, live, oral Sukh Pamela Newbill Work Phone: [facility] Work Phone: 1997 diphtheria, tetanus toxoids and acellular pertussis vaccine Sukh Newbill PA-C Work Phone: [facility] Work Phone: 1995 diphtheria, tetanus toxoids and acellular pertussis vaccine, unspecified formulation Sukh Pamela Newbill Work Phone: [facility] Work Phone: 1995 haemophilus influenz ae type b conjugate and Hepatitis B vaccine Sukh Pamela Newbill Work Phone: [facility] Work Phone: 1995 haemophilus influenz ae type b vaccine, conjugate unspecified formulation Sukh Newbill PA-C Work Phone: [facility] Work Phone: 1995 hepatitis B vaccine, unspecified formulation Sukh Newbill PA-C Work Phone: [facility] Work Phone: 1995 poliovirus vaccine, unspecified formulation Sukh Newbill PA-C Work Phone: [facility] Work Phone: 1995 trivalent poliovirus vaccine, live, oral Sukh Pamela Newbill Work Phone: [facility] Work Phone: Payers Date Payer Category Payer Self-pay 2023 [facility] (Private) [facility] [id number] 2023 Managed Care (unspecified) MMO [id number]. [id number] 2021 Unknown [id number] 2017 Unknown 2017 Unknown [id number] 1997 Unknown [id number] 2.0.1.091798.3.579.2. 1069 1997 Unknown [id number] 2.0.1.690106.3.579.2. 1069 1997 Unknown [id number] 2.1.081282.3.579.2. 1069 1997 Unknown [id number] 2.1.358507.3.579.2. 106 1997 Unknown [id number] 2.840.1.390794.3.579.2. 356 1997 Unknown [id number] 2.0.1.155798.3.579.2. 356 1997 Unknown [id number] 2.0.1.598808.3.579.2. 356 1997 Unknown [id number] 2.840.1.638894.3.579.2. 356 1997 Unknown [id number] 2.16.840.1.180231.3.579.2. 356 1997 Unknown [id number] 2.16.840.1.052404.3.579.2. 356 1997 Unknown [id number] 2.16.840.1.709746.3.579.2. 356 1997 Unknown [id number] 2.16.840.1.864893.3.579.2. 356 1997 Unknown [id number] 2.16.840.1.810333.3.579.2. 902 1997 Unknown [id number] 2.16.840.1.866852.3.579.2. 1247 1997 Unknown [id number] 2.16.840.1.716788.3.579.2. 1247 1997 Unknown [id number] 2.16.840.1.201048.3.579.2. 1247 1997 Unknown [id number] 2.16.840.1.904004.3.579.2. 1243 1997 Unknown [id number] 2.16.840.1.457560.3.579.2. 1243 1997 Unknown [id number] 2.16.840.1.636423.3.579.2. 1243 1997 Unknown [id number] 2.16.840.1.840804.3.579.2. 1243 1997 Unknown [id number] 2.16.840.1.672671.3.579.2. 1243 1997 Unknown [id number] 2.16.840.1.317984.3.579.2. 1244 1997 Unknown [id number] 2.16.840.1.724348.3.579.2. 1244 1997 Unknown [id number] 2.16.840.1.838832.3.579.2. 1244 1997 Unknown [id number] 2.16.840.1.960459.3.579.2. 1244 1997 Unknown [id number] 2.16.840.1.565562.3.579.2. 1244 1997 Unknown [id number] 2.16.840.1.182386.3.579.2. 1244 1997 Unknown [id number] 2.16.840.1.065724.3.579.2. 594 1997 Unknown [id number] 2.16.840.1.485616.3.579.2. 594 1997 Unknown [id number] 2.16.840.1.043316.3.579.2. 594 1997 Unknown [id number] 2.16.840.1.907549.3.579.2. 1245 1997 Unknown [id number] 2.16840.1.517685.3.579.2. 1245 1997 Unknown [id number] 2.16.840.1.701857.3.579.2. 479 1997 Unknown [id number] 2.16.840.1.963827.3.579.2. 479 Unknown [id number] Unknown [id number] Unknown [id number] 2.16840.1.043248.3.579.2. 462 Unknown [id number] 2.16.840.1.790708.3.579.2. 462 Unknown [id number] 2.16.840.1.848444.3.579.2. 462 Unknown [id number] 2.16.840.1.764389.3.579.2. 462 Unknown [id number] 2.16.840.1.806718.3.579.2. 462 Unknown [id number] 2.16.840.1.785455.3.579.2. 462 Unknown [id number] 2.16.840.1.251444.3.579.2. 462 Unknown [id number] 2.16.840.1.853806.3.579.2. 462 Unknown [id number] 2.16.840.1.566954.3.579.2. 462 Unknown [id number] 2.16.840.1.166186.3.579.2. 462 Social History Date Type Detail Facility Start: 11-03-2022 End: 04-28-2023 Uses control Uses control -[facility] Work Phone: Tobacco smoking consumption unknown [facility] Start: 11-03-2022 End: 01-12-2025 Tobacco smoking status NHIS Never smoked tobacco [facility] Start: 11-03-2022 End: 01-02-2025 Alcohol intake Current drinker of alcohol (finding) [facility] Work Phone: Start: 11-03-2022 End: 04-28-2023 Tobacco use panel [facility] Work Phone: Start: 1995 Sex Assigned At Not on file [facility] Work Phone: Start: 10-24-2022 End: 01-02-2025 Exposure to SARS-CoV-2 (event) Not sure [facility] Start: 01-26-2023 End: 10-11-2023 Tobacco use and exposure Smokeless tobacco non-user [facility] Work Phone: Start: 09-24-2023 Alcohol Comment socially- 3-5 a ashley h [facility] Work Phone: Start: 10-11-2023 Tobacco smoking status NHIS Occasional tobacco smoker [facility] History of tobacco use Cigarette Smoker [facility] Work Phone: Start: 10-11-2023 Tobacco Comment socially [facility] Work Phone: Start: 1995 Sex Assigned At Female [facility] Start: 10-14-2023 Gender identity Identifies as female gender (finding) [facility] Work Phone: Start: 06-04-2024 End: 11-24-2024 Exposure to SARS-CoV-2 (event) Unable to assess [facility] Start: 11-05-2024 End: 11-23-2024 Sex Female (finding) [facility] Start: 01-04-2025 Alcohol Comment social [facility] Start: 12-08-2024 [facility] NEGATED: Highlighted row - - [facility] Work Phone: Goals Date Patient Goal Desired Activity /State Personal health goal Functional Status Date Assessment Result Facility NEGATED: Highlighted row Functional performance Functional status health issues are not documented Disease [facility] Work Phone: Mental Status Date Assessment Result Facility NEGATED: Highlighted row Cognitive function [Interpretation] Cognitive status health issues are not documented Disease [facility] Work Phone: Clinical Notes 01-10-2018 to 03-19-2025 Note Date & Type Note Facility 03-19-2025 Progress note [facility] 03-19-2025 Progress note Note Date/Time March 19, 2025 3:31pm [facility] [address], [address] [place] [address] OFFICE VISIT Date of Service: 03/19/25 MR#: [id number] Acct: [id number] Name: KM STRANGE Rep #: [id number] : 1995 Provider: SHI Harrell Age/Sex: 29/F Location: [facility] Status: Signed Intake Vital Signs 01/26/25 13:35 02/22/25 09:25 03/19/25 15:12 Height 5 ft 5 ft 5 ft Weight: 142 lb 6 oz BMI 27.8 BP 103/70 Intake Visit Reasons: 17wk ob Chief Complaint: 17wk OB Flap Curer Required: No Is patient in pain?: No [...] house current occupational status: employed 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 GA appropriate handout given. 03/19/25 4965 <Electronically signed by Kelsey park CNM> Date _ Kelsey Harrell CNM Cosigner Signature: Date (if applicable) CC: ~ [facility] Work Phone: 1(245) 581-894306-13-2025 Evaluation note* Diagnosis Onset Date Resolution Status [...] of high-risk acute January 26, 2025 1:31pm [facility] Work Phone: 1(910) 199-806606-13-2025 Evaluation note* Diagnosis Onset Date Resolution Status Admit Date Amenorrhea acute January 12 8:09am Acid reflux acute January 26 1:31pm Anxiety acute January 26 1:31pm Depression acute January 26 1:31pm Endometriosis acute January 26, 2025 1:31pm IBS (irritable bowel syndrome) acute January 26, 2025 1:31pm Infertility acute January 26 1:31pm acute January 26 1:31pm Supervision of high-risk acute January 26, 2025 1:31pm [facility] Work Phone: 1([phone]) 381-242606-13-2025 Evaluation note* Diagnosis Onset Date Resolution Status [...] of high-risk acute February 22, 2025 9:19am [facility] Work Phone: 1(133) 357-308506-13-2025 Evaluation note* Diagnosis Onset Date Resolution Status [...] Supervision of high-risk acute March 19 3:03pm [facility] Work Phone: 1(930) 408-196006-13-2025 Evaluation note* Diagnosis Onset Date Resolution Status [...] of high-risk acute April 18, 2025 8:19am [facility] Work Phone: 1(406) 517-314306-05-2025 History of Present illness Narrative* Lisa Lemos [...] history IBS-C and endometriosis who is at [id number] presents to the [facility] clinic today for initial [...] Pepcid 20 mg twice per day, and [id number] mg once. She was recently seen in [facility]. She noted severe bladder pain and [...] of Present Illness The patient is a 62-yomt-psk-female who presents for evaluation of an allergic reaction and mast cell activation syndrome. (AI note film writer used incorrect pronouns - pronouns should [...] do not hesitate to contact me at [phone]. 60 minutes was spent on care of [...] not included in the time total above. Johnan Haines M.D. Apiculturist - Clinical [facility] [place] Instructions* Patient Instructions* Johann Haines MD - [...] experience worsening symptoms, please reach out through Superplayer or call the office. FODMAPs (Fermentable Oligosaccharides, [...] bananas, sweet cherries, plums Vegetables: Broccoli, beets, [place] sprouts, sweet potato Dairy Products: Yogurt, soft cheeses in moderate quantities Grains: [place] bread, wheat bread in small amounts Nuts [...] and maintain nutritional balance. documented in this [facility]06-03-2025 History of Present illness Narrative* Chad Valdez [...] Maternal Grandmother Marcie Lee [facility] Work Phone: 1(718) 183-887504-25-2025 History of Present illness Narrative* Ayaka Doss, LORIE-SYRUP FILTERER - 11/24/2024 10:30 AM EDT Subjective Patient [...] visit on documentation, etc [facility] Work Phone: 1(571) 908-914204-24-2025 Emergency department Note* Les Pereira RPH - [...] prescription(s). Epipen education provided to patient using [facility] Patient Education materials. Medication action, dosage, precautions, side effects, administration, schedule, food-drug/drug-drug interactions, and herbal/dietary supplement interactions reviewed. Patient verbalized understanding. No follow-up actions are necessary at this time. Please feel free to contact me with any further questions. Name: Les Aarondi EDWIGE Phone: [phone] Date/Time: 11/23/2024 6:46 AM Time spent: 10 minutes [facility]04-24-2025 Emergency department Note* Les Pereira RPH - [...] prescription(s). Epipen education provided to patient using [facility] Patient Education materials. Medication action, dosage, precautions, side effects, administration, schedule, food-drug/drug-drug interactions, and herbal/dietary supplement interactions reviewed. Patient verbalized understanding. No follow-up actions are necessary at this time. Please feel free to contact me with any further questions. Name: Les Pereira RPH Phone: [phone] Date/Time: 11/23/2024 6:46 AM Time spent: 10 [...] the evaluation and decision making process. Jonathon Brwon MD 11/23/24 This note was dictated using [employer] Dict[employer] Software. Attempts at proofreading have been [...] for further evaluation. documented in this [facility] [place] Emergency department Note* Valdo Buck RN - 11/23/2024 2:44 AM EDT Bed: E053 Expected date: Expected time: Means of arrival: Comments: FT [facility] Hospital Discharge instructions* Discharge Instructions* Jonathon Brown [...] - We wrote a referral to an manager life insurance to further explore these reactions and assist [...] breath, nausea and vomiting. [facility] Physician Emergency department Note* Jonathon Brown MD [...] MD 11/23/24 This note was dictated using [employer]. Attempts at proofreading have been made, however errors may still occasionally occur. Jonathon Brown MD Resident 11/23/24 3595 [facility] Emergency department Note* Jessica Vasquez RN - [...] Came to ED for further evaluation. [facility] Discharge summary [facility] Medical Records Department [address] [place] [address] Emergency Department Summary 11/05/24 MR#: [id number] Acct: [id number] Name: KM STRANGE Rep #:[id number] : [...] Oxygen Delivery Method Room Air Room Air [facility] Narrative Medical decision making narrative: HISTORY OF [...] reviewed, Vital signs reviewed Constitutional: [facility] HENT: MMM Eyes: Pupils equal round and [...] History obtained from others: family Consults: none [facility] Narrative: Patient was hemodynamically stable, afebrile [...] flare of her endometriosis. NSAIDs encouraged. Close HARPSICHORD MAKER follow-up recommended. Strict return precautions were discussed. [...] Discharge home This note was generated with [employer] dictation software. It may contain incorrectwords, spelling, [...] % (Auto) 55.2 Lymph % (Auto) 32.5 [place] % (Auto) 9.9 Eos % (Auto) 1.8 [...] Clarity Clear Urine pH 7.0 Ur Specific [place] 1.010 Urine Protein Negative Urine Glucose (UA) [...] Sukh Pollock PA [Non-Staff] - Print Language: Montenegrin What to do if you have Problems For any increased pain, shortness of breath, bleeding, nausea or vomiting, chestpain, or any unexpected problems, contact your Primary Care Provider. Call [facility] ([phone]) or report tothe closest Emergency Room. Call 911 if necessary. 11/05/24 0653 Cosigner Signature (if applicable): CC: CARLA Doss ~ Signed [facility]04-06-2025 Radiology Diagnostic study note [facility] Imaging Services [address] [place] [address] Abdomen/Pelvis without Cont MR#: [id number] Acct: [id number] Name: KM STRANGE Rep #: [id number] : 1995 F 29 From: Abelardo Dykes DO PCP: CARLA Plascencia Status: REG ER Study:Abdomen/Pelvis without Cont Date of Exa m: 11/05/24 Exam# [id number] Ordering Dr: Amara Schneider DO PROCEDURE: ABDOMEN/PELVIS [...] OR HYDRONEPHROSIS. NO ACUTE FINDINGS. Reading [facility] CC: CARLA Doss; Dr. Daniel Schneider DO ~ Vice President Quality Assurance: Signed [facility]04-06-2025 Discharge summary Author Daniel Schneider [facility] Note Date/Time November 05, 2024 5:52 pm [facility] Medical Records Department [address] [place] [address] Emergency Department Summary 11/05/24 MR#: [id number] Acct: [id number] Name: KM STRANGE Rep #:[id number] : [...] reviewed, Vital signs reviewed Constitutional: [facility] HENT: MMM Eyes: Pupils equal round and [...] History obtained from others: family Consults: none [facility] Narrative: Patient was hemodynamically stable, afebrile [...] flare of her endometriosis. NSAIDs encouraged. Close [facility] MAKER follow-up recommended. Strict return precautions were discussed. [...] Discharge home This note was generated with [employer] dictation software. It may contain incorrectwords, spelling, [...] % (Auto) 55.2 Lymph % (Auto) 32.5 [place] % (Auto) 9.9 Eos % (Auto) 1.8 [...] Clarity Clear Urine pH 7.0 Ur Specific [place] 1.010 Urine Protein Negative Urine Glucose (UA) [...] OR HYDRONEPHROSIS. NO ACUTE FINDINGS. Reading [facility] Triage Chief Complaint: Abd Pain [...] Sukh Pollock PA [Non-Staff] - Print Language: Montenegrin What to do if you have Problems For any increased pain, shortness of breath, bleeding, nausea or vomiting, chestpain, or any unexpected problems, contact your Primary Care Provider. Call [facility] ([phone]) or report to the closest Emergency Room. Call 911 if necessary. 11/05/24 1752 <Electronically signed by Dnaiel Schneider DO> Cosigner Signature (if applicable): CC: CIRCUS SUPERVISORInocencio Doss ~ Signed [facility] Work Phone: 1(344) 745-350302-19-2025 History of Present illness Narrative* Ayaka Doss APRN-SYRUP FILTERER - 09/20/2024 2:50 PM EST Subjective Patient [...] chest 2 views , unspecified gestational age ([facility]) Z34.90 Relevant Orders HCG, quantitative, Bronchitis -Completed azithromycin and bromfed PRN -Chest xray ordered, pt concerned about pneumonia -Encouraged supportive care with rest, hydration, and NSAIDs for fever -HCG blood ordered documented in this [facility] Work Phone: 1(944) 674-304302-08-2025 History of Present illness Narrative* TOM Lazo [...] Review Audit Reviewed by Melvina Petersen MA (Timber Packer) on 09/09/24 at 0913 Medication Order Taking? Sig Documenting Provider Last Dose Status albuterol 0.63 mg/3 mL nebulizer solution [id number] Yes Inhale 3 mL. Historical ProviderMD Taking Active budesonide-formoteroL (Symbicort) 160-4.5 mcg/actuation inhaler [id number] Yes Inhale 2 puffs 2 times a day. Rinse mouth with water after use to reduce aftertaste and incidence of candidiasis. Do not swallow. Historical Provider, Taking Active docusate sodium 250 mg capsule [id number] No Take 1 capsule (250 mg) by mouth once daily. HistoricalProviderMD Taking Active methylPREDNISolone (Medrol Dospak) 4 mg tablets [id number] Take as directed on package. Evens Palacios APRN-RABIA Active pantoprazole (ProtoNix) 40 mg EC tablet [id number] Yes Take 1 tablet (40 mg) by mouth once daily. TOM Combs Taking Active sennosides-docusate sodium (Suzanne-Colace) 8.6-50 mg tablet [id number] No Take 1 tablet by mouth 2 times a day. Jayden Taylor MD Taking Active sertraline (Zoloft) 50 mg tablet [id number] Yes Take 1 tablet (50 mg) by [...] daily on Days 2 through 5. - jmmtiifbpvaucpk-qzikohuzi-PR (Bromfed DM) 2-30-10 mg/5 mL syrup; Take [...] Km's care are: none Evens Palacios CNP [facility] [phone] [facility] Work Phone: 1([phone]) 196-123201-29-2025 History of Present illness Narrative* TOM Combs [...] and possible interstitial cystitis [facility] Work Phone: 1(870) [phone] History of Present illness Narrative* TOM Combs [...] finds gene site testing documented in [facility] Work Phone: 1(362) 386-224110-01-2024 History of Present illness Narrative* TOM Lazo [...] Review Audit Reviewed by Jesus Stover MA (Timber Packer) on 05/02/24 at 1144 Medication Order Taking? Sig Documenting Provider Last Dose Status acetaminophen (Tylenol) 325 mg tablet [id number] Yes Take 3 tablets (975 mg) by mouth every 6 hours if needed for mild pain (1 - 3) for up to 20 doses. Jayden Taylor MD Taking Active albuterol 0.63 mg/3 mL nebulizer solution [id number] Yes Inhale 3 mL. Historical Provider, Taking Active Discontinued 04/27/24 1231 budesonide-formoteroL (Symbicort) 160-4.5 mcg/actuation inhaler [id number] Yes Inhale 2 puffs 2 times a day. Rinse mouth with water after use to reduce aftertaste and incidence of candidiasis. Do not swallow. Historical ProviderMD Taking Active docusate sodium 250 mg capsule [id number] Yes Take 1 capsule (250 mg) by mouth once daily. Historical Provider, Taking Active estradiol (Estrace) 0.01 % (0.1 mg/gram) vaginal cream [id number] Yes Apply to vagina nightly for 1 week then every Wednesday/Wednesday/Wednesday. Jayden Taylor MD Taking Active ibuprofen 600 mg tablet [id number] Yes Take 1 tablet (600 mg) by mouth every 6 hours if needed for moderate pain (4 - 6) for up to 20 doses. Jayden Taylor MD Taking Active Patient not taking: Discontinued 04/28/24 1316 ondansetron (Zofran) 4 mg tablet [id number] Yes Take 1 tablet (4 mg) by mouth every 6 hours if needed for nausea for up to 20 doses. Jayden Taylor MD Taking Active oxyCODONE (Roxicodone) 5 mg immediate release tablet [id number] Yes Take 1 tablet (5 mg) by mouth every 6 hours if needed for severe pain (7 - 10) for up to 12 doses. Jayden Taylor MD Taking Active Discontinued 04/27/24 1229 Discontinued 04/27/24 1230 pantoprazole (ProtoNix) 40 mg EC tablet [id number] Yes Take 1 tablet (40 mg) by mouth once daily. Ayaka Doss, ASSESSMENT COORDINATOR-SYRUP FILTERER Taking Active sennosides-docusate sodium (Suzanne-Colace) 8.6-50 mg tablet [id number] Yes Take 1 tablet by mouth 2 [...] Km's care are: none Evens Palacios CNP [facility] [phone] documented in [facility] Work Phone: 1([phone]) [phone] History and physical note* Jayden Taylor MD [...] w/ surgery as scheduled. Jayden Taylor MD [facility] Work Phone: 1([phone]) 405-415409-27-2024 History and physical note* Jayden Taylor MD [...] scheduled. Jayden Taylor MD [facility] Work Phone: 1([phone]) 141-539009-26-2024 History of Present illness Narrative* TOM Combs [...] ordered GERD -Takes protonix documented in this encounterUnSelect [facility] Work Phone: 1(873) 469-698105-22-2024 History of Present illness Narrative* Jayden Taylor MD - 12/22/2023 3:00 PM EDT Division of Minimally Invasive Gynecologic Surgery [facility] 12/18/23 Gynecology Consult HISTORY OF [...] presents in follow for endometriosis. Last saw mi 11/2022 and was recommended PFPT, vaginal Valium, [...] resection, any indicated procedure. PAT: No. Location: [place]. - PFPT referral, yoga for pelvic pain, [...] nothing Diagnostic workup: surgery documented in this [facility] Work Phone: 1([phone]) 173-101703-29-2024 History of Present illness Narrative* Jameel Hernandez [...] (Tylenol w/ Codeine #3) 300-30 mg tablet [id number] Take 1 tablet by mouth every 6 hours if needed for moderate pain (4 - 6) or severe pain (7 - 10) for up to 10 doses. Jameel Hernandez MD Active albuterol 0.63 mg/3 mL nebulizer solution [id number] No Inhale 3 mL. Sue Herrera MD Past Week Active Breo Ellipta 200-25 mcg/dose inhaler [id number] No Inhale 1 puff by mouth once daily Sukh Pollock PA-C Past Month Active budesonide-formoteroL (Symbicort) 160-4.5 mcg/actuation inhaler [id number] No Inhale 2 puffs 2 timesa day. Rinse mouth with water after use to reduce aftertaste and incidence of candidiasis. Do not swallow. Sue Herrera MD 10/13/2023 Active docusate sodium (Colace) 100 mg capsule [id number] No Take 1 capsule (100 mg) by mouth 2 times a day. Sue Herrera MD 10/13/2023 Active LORazepam (Ativan) 1 mg tablet [id number] Take 1 tablet (1 mg) by mouth every 8 hours if needed for anxiety for up to 7 days. 1/2 or 1 tab q8 prn panic attack Sukh Santiago ANGELA Pollock 05/08/23 2359 ondansetron (Zofran) 4 mg tablet [id number] No Take 1 tablet (4 mg) by mouth every 6 hours. Sukh Santiago ANGELA Pollock Past Month Active ondansetron ODT (Zofran-ODT) 8 mg disintegrating tablet [id number] Take 1 tablet (8 mg) by mouth every 8 hours if needed for nausea or vomiting. Jameel Hernandez MD Active pantoprazole (ProtoNix) 40 mg EC tablet [id number] No Take 1 tablet (40 mg) by [...] March for annual exam. documented in this [facility] Work Phone: 1(558) 195-448603-14-2024 Miscellaneous Notes* Op Note - Jameel Hernandez MD - 10/14/2023 9:31 AM EDT Diagnostic Laparoscopy Operative Note Date: 10/14/2023 OR Location: [facility] OR Name: Km Strange, : 1995, Age: 28 y.o., , Sex: female Diagnosis Pre-op Diagnosis * Chronic pelvic pain in female [R10.2, G89.29] Post-op Diagnosis * Chronic pelvic pain in female [R10.2, G89.29] Endometriosis Procedures Diagnostic Laparoscopy 37385 - ND LAPS ABD PRTM&OMENTUM DX W/WO SPEC BR/WA SPX Surgeons * Jameel Hernandez - Primary Resident/Fellow/Other Railway Patrol Officer: Surgeon(s) and Role: Justin Herrmann Procedure Summary [...] 700 mL Specimen: No specimens collected Staff: Sports Manager: Johnny Michaels RN Scrub Person: Tae Herrmann; [...] drink after midnight Additional Instructions: Will need catering driver home, will receive call day before surgery with [facility] time [facility] Phone: [phone] 173-543803-14-2024 Note* Op Note - Jameel Hernandez MD - 10/14/2023 9:31 AM EDT Diagnostic Laparoscopy Operative Note Date: 10/14/2023 OR Location: [facility] OR Name: Km Strange, : 1995, Age: 28 y.o., , Sex: female Diagnosis Pre-op Diagnosis * Chronic pelvic pain in female [R10.2, G89.29] Post-op Diagnosis * Chronic pelvic pain in female [R10.2, G89.29] Endometriosis Procedures Diagnostic Laparoscopy 98532 - ND LAPS ABD PRTM&OMENTUM DX W/WO SPEC BR/WA SPX Surgeons * Jameel Hernandez - Primary Resident/Fellow/Other Railway Patrol Officer: Surgeon(s) and Role: Justin Herrmann Procedure Summary [...] 700 mL Specimen: No specimens collected Staff: Sports Manager: Johnny Michaels RN Scrub Person: Tae Ndiaye [...] stable Additional Details: Attending Attestation: Jameel Hernandez [facility] Work Phone: [phone] Attending History and physical note* Jameel Hernandez [...] Status albuterol 0.63 mg/3 mL nebulizer solution [id number] Inhale 3 mL. Historical Provider, Active Breo Ellipta 200-25 mcg/dose inhaler [id number] Inhale 1 puff by mouth once daily Sukh Pollokc PA-C Active budesonide/formoterol fumarate (SYMBICORT INHL) [id number] Inhale. Historical Provider, Active DULoxetine (Cymbalta) [address] capsule [id number] Take one cap daily for one week then increase to 2 caps daily Sukh Pollock PA-C Active levalbuterol (Xopenex) 45 mcg/actuation inhaler [id number] Inhale 1 puff every 4 hours if needed. Historical Provider, Active LORazepam (Ativan) 1 mg tablet [id number] Take 1 tablet (1 mg) by mouth every 8 hours if needed for anxiety for up to 7 days. 1/2 or 1 tab q8 prn panic attack Sukh Pollock PA-C 05/08/23 5369 ondansetron (Zofran) 4 mg tablet [id number] Take 1 tablet (4 mg) by mouth every 6 hours. Sukh Pollock PA-C Active pantoprazole (ProtoNix) 40 mg EC tablet [id number] Take 1 tablet (40 mg) by mouth [...] Plan for diagnostic laparoscopy in several weeks. [facility] Work Phone: [phone] History and physical note* Jameel Hernandez MD [...] Status albuterol 0.63 mg/3 mL nebulizer solution [id number] Inhale 3 mL. Historical Provider, Active Breo Ellipta 200-25 mcg/dose inhaler [id number] Inhale 1 puff by mouth once daily Sukh Pollock PA-C Active budesonide/formoterol fumarate (SYMBICORT INHL) [id number] Inhale. Historical ProviderMD Active DULoxetine (Cymbalta) [address] capsule [id number] Take one cap daily for one week then increase to 2 caps daily Sukh Pollock PA-C Active levalbuterol (Xopenex) 45 mcg/actuation inhaler [id number] Inhale 1 puff every 4 hours if needed. Historical Provider, Active LORazepam (Ativan) 1 mg tablet [id number] Take 1 tablet (1 mg) by mouth every 8 hours if needed for anxiety for up to 7 days. 1/2 or 1 tab q8 prn panic attack Sukh Pollock PA-C 05/08/23 6657 ondansetron (Zofran) 4 mg tablet [id number] Take 1 tablet (4 mg) by mouth every 6 hours. Sukh Pollock, PA-C Active pantoprazole (ProtoNix) 40 mg EC tablet [id number] Take 1 tablet (40 mg) by mouth [...] laparoscopy in several weeks. [facility] Work Phone: [phone] Note* Preprocedure Instructions - Nancy Cameron RN - 10/11/2023 12:35 PM EDT No outpatient medications have been marked as taking for the 10/14/23 encounter (Hospital Encounter). NPO Instructions: Nothing to eat or drink after midnight Additional Instructions: Will need catering driver home, will receive call day before surgery with arrival time [facility] Work Phone: [phone] History of Present illness Narrative* Jameel Hernandez [...] Status albuterol 0.63 mg/3 mL nebulizer solution [id number] Inhale 3 mL. Historical Provider, Active Breo Ellipta 200-25 mcg/dose inhaler [id number] Inhale 1 puff by mouth once daily Sukh Pollock PA-C Active budesonide/formoterol fumarate (SYMBICORT INHL) [id number] Inhale. Historical Provider, Active DULoxetine (Cymbalta) [address] capsule [id number] Take one cap daily for one week then increase to 2 caps daily Sukh Pollock PA-C Active levalbuterol (Xopenex) 45 mcg/actuation inhaler [id number] Inhale 1 puff every 4 hours if needed. Historical Provider, Active LORazepam (Ativan) 1 mg tablet [id number] Take 1 tablet (1 mg) by mouth every 8 hours if needed for anxiety for up to 7 days. 1/2 or 1 tab q8 prn panic attack Sukh Santiago ANGELA Pollock 05/08/23 2359 ondansetron (Zofran) 4 mg tablet [id number] Take 1 tablet (4 mg) by mouth every 6 hours. Sukh Santiago ANGELA Pollock Active pantoprazole (ProtoNix) 40 mg EC tablet [id number] Take 1 tablet (40 mg) by mouth [...] laparoscopy in several weeks. documented in this [facility] Work Phone: [phone] History of Present illness Narrative* Sukh Pollock [...] with it. The patient is currently taking dcwd-umu-qxocxfa formulations for insomnia which is somewhat helpful. [...] depression [F41.0] Panic attack documented in this [facility] Work Phone: [phone] History of Present illness Narrative* Sukh Pollock [...] of sacrum, initial encounter [facility] Work Phone: [phone] History of Present illness Narrative* Sukh Pollock [...] Patient has seen gastroenterology here and in [place] with no change in course. No hematemesis [...] unspecified whether sciatica present documented in this [facility] Work Phone: [phone] History of Present illness Narrative Km is a 27-year-old who comes in for routine CHILD DEVELOPMENT DIRECTOR exam. Patient has chronic pelvic pain and issearing a pain specialist. Currently she is scheduled to see a pelvic floor therapist but the next step may be evaluation of for endometriosis. She recently became just a few weeks ago. Her and her are not preventing a but also or thinking they would like to wait until next year.[address] Work Phone: [phone] History of Present illness Narrative Km is [...] to an IUD which was removed last summer.[facility] Work Phone: [phone] History of Present illness Narrative* Mike Del [...] swelling and pain. 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 [...] mg tablet predniSONE (Deltasone) 10 mg tablet yxnzukbwbgbnzqj-OV-bikjdsqlrra 60-15-400 mg tablet Final diagnoses: [F41.9, F32.A] Anxiety and depression [F41.0] Panic attacks [J02.9] Pharyngitis, unspecified etiology documented in this [facility] Work Phone: [phone] History of Present illness Narrative Km is [...] to an IUD which was removed last summer.[facility] Work Phone: [phone] History of Present illness Narrative Km is [...] to an IUD which was removed last summer.[address] Work Phone: [phone] History of Present illness Narrative* Patient presents [...] and staying asleep. Patient is attempted several erhr-bej-ixookgx remedies without improvement. * Patient states there is a family history of this with fairly severe case of this with her father. Patient denies any traumatic precipitating event. [facility] Work Phone: [phone] History of Present illness Narrative* Patient was [...] [facility] to wrap her mattress and pillows in. [...] She denies any dyspnea with daily activities. [facility] Work Phone: [phone] History of Present illness Narrative* 27 yo G[address] Dr[address] Lr for pelvic pain. * mK reports a hx of LLQ pelvic pain [...] appendectomy 2019 (pathology not available), wisdom teeth [place] Work Phone: Chief complaint Narrative - Reported* KM HUNT is here for an initial evaluation. * Reason for Visit: Severe persistent Asthma. * Appointment requested by: Dr. Chávez; PCP: Ravin Pollock. -[facility] [address] Work Phone: chief complaint Narrative - Reported* KM HUNT is here for an initial evaluation. * Reason for Visit: Severe persistent Asthma. * Appointment requested by: Dr. Chávez; PCP: Ravin Pollock. [facility] [address] Work Phone: Evaluation note* Diagnosis Anxiety and depression- Primary Panic attacks Panic disorder without agoraphobia Pharyngitis, unspecified etiology documented in this encounter [facility] Work Phone: Evaluation note* Diagnosis Anxiety and depression- Primary Panic attack Panic disorder without agoraphobia Bilious vomiting with nausea Acute bilateral low back pain, unspecified whether sciatica present documented in this encounter [facility] Work Phone: [phone] note* Diagnosis Anxiety and depression- Primary Injury of sacrum, initial encounter documented in this encounter [facility] Work Phone: [phone] note* Diagnosis Anxiety and depression- Primary Panic attack Panic disorder without agoraphobia Nausea in adult documented in this encounter [facility] Work Phone: [phone] note* Diagnosis Chronic pelvic pain in female- Primary Unspecified symptom associated with female genital organs Dyspareunia in female Chronic pelvic pain in female- Primary Unspecified symptom associated with female genital organs documented in this encounter [facility] Work Phone: [phone] note* Diagnosis Chronic pelvic pain in female- Primary Unspecified symptom associated with female genital organs Chronic pelvic pain in female Unspecified symptom associated with female genital organs PONV (postoperative nausea and vomiting) Nausea with vomiting PONV (postoperative nausea and vomiting) Nausea with vomiting documented in this encounter [facility] Work Phone: [phone] note* Diagnosis Postoperative visit- Primary Endometriosis determined by laparoscopy documented in this encounter [facility] Work Phone: [phone] note* Diagnosis Endometriosis determined by laparoscopy- Primary Dyspareunia in female documented in this encounter [facility] Work Phone: [phone] note* Diagnosis Allergic contact der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- Primary Contact dermatitis and other eczema due to other chemical products documented in this encounter [facility] Work Phone: [phone] note* Diagnosis Panic attacks- Primary Panic disorder without agoraphobia Anxiety and depression documented in this encounter [facility] Work Phone: [phone] note* Diagnosis Endometriosis determined by laparoscopy- Primary Health maintenance examination- Primary Unspecified general medical examination Gastroesophageal reflux disease without esophagitis Esophageal reflux Endometriosis determined by laparoscopy documented in this encounter [facility] Work Phone: [phone] note* Diagnosis Endometriosis determined by laparoscopy- Primary Endometriosis determined by laparoscopy Post-op pain Other acute postoperative pain documented in this encounter [facility] Work Phone: Evaluation note* Diagnosis UTI symptoms documented in this encounter [facility] Work Phone: [phone] note* Diagnosis UTI symptoms documented in this encounter [facility] Work Phone: Evaluation note* Diagnosis Acute non-recurrent maxillary sinusitis- Primary Acute upper respiratory infection Acute upper respiratory infections of unspecified site documented in this encounter [facility] Work Phone: Evaluation note* Diagnosis Bronchitis- Primary Bronchitis, not specified as acute or chronic , unspecified gestational age ([facility]) documented in this encounter [facility] Work Phone: Evaluation note* Diagnosis Bronchitis Bronchitis, not specified as acute or chronic documented in this encounter [facility] Work Phone: Evaluation noteNo assessment information available [facility] Work Phone: Evaluation note* Diagnosis Anaphylaxis, initial encounter- Primary [facility] Diagnosis Pelvic pain- Primary Allergic reaction, subsequent encounter- Primary Pelvic pain Pelvic pain documented in this encounter [facility] Work Phone: Evaluation note* Diagnosis Chronic urticaria- Primary Other specified urticaria Angioedema, initial encounter Swelling Edema documented [facility] this encounter [facility] [place]* Diagnosis OAB (overactive bladder)- Primary Urinary symptom or sign Interstitial cystitis Chronic interstitial cystitis Pelvic pain in female Unspecified symptom associated with female genital organs Pelvic floor dysfunction documented in this encounter [facility] Work Phone: History of Present illness NarrativePresents for evaluation of URI. Symptoms including cough, congestion, have been present for severaldays and refractory to OTC meds. No fever, chills, nausea, vomiting, abdominal pain, CP, or SOB. Noexacerbating factors. Patient does have asthma.[facility] Work Phone: History of Present illness NarrativePresents for evaluation of URI. Symptoms including cough, congestion, have been present for severaldays and refractory to OTC meds. No fever, chills, nausea, vomiting, abdominal pain, CP, or SOB. Noexacerbating factors. Patient does have asthma.[facility] Work Phone: History of Present illness NarrativePresents for evaluation fever, sore throat, nausea, body aches, and RAMÍREZ. Symptoms presented today and have been refractory to otc meds. No abdominal pain, diaphoresis, or other constitutional S/S. No other attempt at conservative management. No other complaints.[facility] Work Phone: History of Present [...] drainage. 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 [facility] Work Phone: History of Present [...] or odor. Patientdenies any problems with her [address] Work Phone: History of Present illness NarrativePatient is a 26-year-old who is here for for an annual exam and concerns about left lower quadrant pain going on for several years. She reports she had a CT scan ordered by her PCP that showed a leftovarian cyst. Patient uses condoms for contraception. Patient denies any discharge or odor. Patientdenies any problems with her [facility] Work Phone: History of Present illness NarrativePatient is a 26-year-old who is here for for an annual exam and concerns about left lower quadrant pain going on for several years. She reports she had a CT scan ordered by her PCP that showed a leftovarian cyst. Patient uses condoms for contraception. Patient denies any discharge or odor. Patientdenies any problems with her [facility]: History of Present illness Narrative* [...] any problems with sleep at nighttime. -Pulmonary Medicine-[place] [address] DO Work Phone: History of Present illness [...] does have a history of bone allergy [facility] she was in high school. Her current [...] any problems with sleep at nighttime. -[facility] [employer] DO Work Phone: History of Present illness [...] covers that [facility] to wrap her mattress and pillows in. [...] denies any dyspnea with daily activities. -Pulmonary [facility] [employer] DO Work Phone: History of Present illness [...] to complete work and deal with adverse situations.[facility] Work Phone: History of Present [...] lack of interest, social anxiety and general sadness.[facility] Work Phone: History of Present [...] to an IUD which was removed last summer.[facility] Work Phone: Hospital Discharge instructions Additional Instructions [...] your OB for further outpatient evaluation and management.[facility] Work Phone: Reason for referral (narrative)* Consultation (Routine) - Authorized Specialty Diagnoses / Procedures Referred By Contac t Referred To Contact Primary Care Procedures Follow Up In Primary Care - Established Sukh Pollock PA-C [address] [place] [address] Referral ID Status Reason Start Date Expiration Date V isits Requested Visits Authorized [id number] Authorized 03/04/2023 08/31/2023 1 1 [facility] Work Phone: Reason for referral (narrative)* Consultation (Routine) - Authorized Specialty Diagnoses / Procedures Referred By Contac t Referred To Contact Primary Care Procedures Follow Up In Primary Care - Established Sukh Pollock PA-C [address] [place] [address] Referral ID Status Reason Start Date Expiration Date V isits Requested Visits Authorized [id number] Authorized 04/28/2023 10/25/2023 1 1 [facility] Work Phone: Rearjr for referral (narrative)* Consultation (Routine) - Pending Review Specialty Diagnoses / Procedures Referred By Contac t Referred To Contact Physical Therapy Diagnoses Endometriosis determined by Jayden Canales MD [address] [facility], [address] [address] Referral ID Status Reason Start Date Expiration Date Visits Requested Visits Authorized [id number] Pending Review Specialty Services Required 12/22/2023 12/21/2024 1 1 [facility] Work Phone: Reason for referral (narrative)No reason for referral information availableWACMC [facility] Work Phone: Reason for visit Narrative* Imaging (Routine) - Authorized Specialty Diagnoses / Procedures Referred By Contac t Referred To Contact Radiology Diagnoses UTI symptoms Procedures US renal complete Ayaka Doss, ASSESSMENT COORDINATOR-SYRUP FILTERER [address] [place] [address] Phone: tel: fax: Referral ID Status Reason Start Date Expiration Date Visits Requested Visits Authorized [id number] Authorized Perform Procedure 08/30/2024 08/30/2025 1 1 [facility] Work Phone: Reason for visit Narrative* Imaging (Routine) - Authorized Specialty Diagnoses / Procedures Referred By Contac t Referred To Contact Radiology Diagnoses Bronchitis Procedures XR chest 2 views Ayaka Doss, ASSESSMENT COORDINATOR-SYRUP FILTERER [address] [place] [address] Phone: tel: fax: Referral ID Status Reason Start Date Expiration Date Visits Requested Visits Authorized [id number] Authorized Perform Procedure 09/20/2024 09/20/2025 1 1 [facility] Work Phone: Summary Purpose Family History [...] Do you have a Healthcare Power of Hide [place]? No November 05, 2024 3:42pm Chief Complaint [...] 01/14/2022 WNL; LMP 12/08/2022; G0 * CGLANTON EDUCATION AND OUTREACH COORDINATOR Patient here today for annual exam. She [...] Procedures US gallbladder Sukh Pollock PA-C [address] [place] [address] Referral ID Status Reason Start Date Expiration Date Visits Requested Visits Authorized [id number] Authorized Perform Procedure 01/26/2023 07/25/2023 1 1 Specialty Diagnoses / Procedures Referred By Contac t Referred To Contact Radiology Diagnoses Acute bilateral low back pain, unspecified whether sciatica present Procedures XR lumbar spine complete 4+ views Sukh Pollock PA-C [address] [place] [address] Referral ID Status Reason Start Date Expiration Date Visits Requested Visits Authorized [id number] Authorized Perform Procedure 01/26/2023 07/25/2023 1 1 Specialty Diagnoses / Procedures Referred By Contac t Referred To Contact Primary Care Procedures Follow Up In Primary Care Sukh Pollock PA-C [address] [facility] [place] [address] Referral ID Status Reason Start Date Expiration Date V isits Requested Visits Authorized [id number] Authorized 01/26/2023 07/25/2023 1 1 Specialty Diagnoses / Procedures Referred By Contac t Referred To Contact Psychology Diagnoses Anxiety and depression Panic attack Procedures ND OFFICE/OUTPATIENT NEW HIGH MDM 60-74 MINUTES Sukh Pollock PA-C [address] [facility] [facility] [place] [address] Referral ID Status Reason Start Date Expiration Date Visits Requested Visits Authorized [id number] Authorized Specialty Services Required 01/26/2023 07/25/2023 1 1 Specialty Diagnoses / Procedures Referred By Robyn soto Referred To Contact Diagnoses Allergic contact der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 TamirEvens myers, ASSESSMENT COORDINATOR-SYRUP FILTERER [address] [place] [address] Referral ID Status Reason Start Date Expiration Date V isits Requested Visits Authorized [id number] Pending Review 05/02/2024 05/02/2025 1 1 Chief [...] 8:19am Pelvic floor dysfunction in female Aubrey [facility] 2024 8:19am April 18, 2025 8:19am Supervision of high-risk Aubrey jimenez 2024 8:19am Additional Source Comments INFORMATION SOURCE (unrecogn ized section and content) DATE CREATED AUTHOR 04/15/2019 [facility] DATE CREATED AUTHOR AUTHOR'S ORGANIZ ATION 02/04/2023 [facility] DATE CREATED AUTHOR AUTHOR'S ORGANIZ ATION 02/16/2023 [facility] DATE CREATED AUTHOR AUTHOR'S ORGANIZ ATION 02/16/2023 [facility] DATE CREATED AUTHOR AUTHOR'S ORGANIZ ATION 11/28/2024 [facility] DATE CREATED AUTHOR AUTHOR'S ORGANIZ ATION 12/28/2024 [facility] DATE CREATED AUTHOR AUTHOR'S ORGANIZ ATION 12/31/2024 [facility] DATE CREATED AUTHOR AUTHOR'S ORGANIZ ATION 12/31/2024 [facility] DATE CREATED AUTHOR AUTHOR'S ORGANIZ ATION 01/07/2025 [facility] DATE CREATED AUTHOR AUTHOR'S ORGANIZ ATION 01/09/2025 [facility] DATE CREATED AUTHOR AUTHOR'S ORGANIZ ATION 04/09/2025 [facility] DATE CREATED AUTHOR AUTHOR'S ORGANIZ ATION 04/20/2025 [facility] DATE CREATED AUTHOR AUTHOR'S ORGANIZ ATION 05/12/2025 [facility] <item><item> Privacy Markings (unrecogniz ed section and [...] In Primary Care Sukh Pollock PA-C [address] [place] [address] Referral ID Status Reason Start Date Expiration Date V isits Requested Visits Authorized [id number] Authorized 01/26/2023 07/25/2023 1 1 Reason Comments [...] pelvic pain in female [R10.2, G89.29] Procedures ND LAPS ABD PRTM&OMENTUM DX W/WO SPEC BR/WA SPX Diagnostic Laparoscopy Jameel Hernandez MD [address] [facility], [address] [place] [address] [facility] [address] [place] [address] Referral ID Status Reason Start Date Expiration Date Visits Re quested Visits Authorized [id number] 1 1 Reason Comments Post-op Visit Patient is here for her post op visit and has some questions regarding her bladder issues. Reason Comments Follow-up Endometriosis follow up Reason Comments Rash Rash on abdomen/hips . OTC antihistamines not improving sx Specialty Diagnoses / Procedures Referred By Robyn t Referred To Contact Diagnoses Allergic contact der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 Evens Palacios, ASSESSMENT COORDINATOR-SYRUP FILTERER [address] [place] [address] Referral ID Status Reason Start Date Expiration Date V isits Requested Visits Authorized [id number] Pending Review 05/02/2024 05/02/2025 1 1 Specialty Diagnoses / Procedures Referred By Robyn t Referred To Contact Diagnoses Endometriosis determined by laparoscopy Endometriosis determined by laparoscopy [N80.9] Procedures ND LAPS ABD PRTM&OMENTUM DX W/WO SPEC BR/WA SPX ROBOT ASSIST ENDOMETRIOSIS EXCISION/ CHROMOPERTUBATION/ CYSTOSCOPY/ POSSIBLE BLADDER RESECTION/ ANY INDICATED PROCEDURE Jayden Taylor MD [address] [facility], [address] [place] [address] [facility] [place] [address] [place] [address] Referral ID Status Reason Start Date Expiration Date Visits Re quested Visits Authorized [id number] 1 1 Reason Comments UTI sx Off [...] MD [address] [place] [address] Phone: tel: fax: Referral ID Status Reason Start Date Expiration Date V isits Requested Visits Authorized [id number] New Request 11/24/2024 12/19/2025 1 1 Reason [...] Care Teams (unrecognized sec tion and content) Director Of Psychology Relationship Specialty Start Date End Date Sukh Pollock PA-C [address] [place] [address] PCP - General 06/24/21 Sukh Pollock PA-C [address] [place] [address] PCP - [employer] [facility] PCP 08/02/21 Sukh Pollock PA-C [address] [place] [address] PCP - O ACO PCP 08/02/21 Director Of Psychology Relationship Specialty Start Date End Date Sukh Pollock PA-C [address] [place] [address] PCP - General 06/24/21 Sukh Pollock PA-C [address] [place] [address] PCP - [employer] [facility] PCP 08/02/21 Sukh Pollock PA-C [address] [place] [address] PCP - MMO ACO PCP 08/02/21 Sukh Pollock PA-C [address] [facility] [place] [address] PCP - [facility] Medicaid PCP 10/31/22 Director Of Psychology Relationship Specialty Start Date End Date Sukh Pollock PA-C [address] [facility] [place] [address] PCP - General 06/24/21 Sukh Pollock PA-C [address] [facility] [place] [address] PCP - [employer] [facility] PCP 08/02/21 Sukh Pollock PA-C [address] [facility] [address] [facility] [place] [address] PCP - MMO ACO PCP 08/02/21 Sukh Pollock PA-C [address] [place] [address] PCP - [facility] Medicaid PCP 10/31/22 Director Of Psychology Relationship Specialty Start Date End Date Sukh Pollock PA-C [address] [facility] [address] [facility] [place] [address] PCP - General 06/24/21 Sukh Pollock PA-C [address] [place] [address] PCP - [employer] [facility] PCP 08/02/21 Director Of Psychology Relationship Specialty Start Date End Date Sukh Pollock PA-C [address] [place] [address] PCP - General 06/24/21 Sukh Pollock PA-C [address] [place] [address], [address] [address] PCP - MMO ACO PCP 05/02/23 Director Of Psychology Relationship Specialty Start Date End Date Sukh Pollock PA-C [address] [place] [address] PCP - General 06/24/21 Sukh Pollock PA-C [address] [place] [address], [address] [address] PCP - MMO ACO PCP 05/02/23 Director Of Psychology Relationship Specialty Start Date End Date Sukh Pollock PA-C [address] [place] [address] PCP - General 06/24/21 Sukh Pollock PA-C [address] [place] [address], [address] [address] PCP - MMO ACO PCP 05/02/23 Director Of Psychology Relationship Specialty Start Date End Date Sukh Pollock PA-C [address] [place] [address] PCP - General 06/24/21 Sukh Pollock PA-C [address] [facility], [address] [address] PCP - MMO ACO PCP 05/02/23 Director Of Psychology Relationship Specialty Start Date End Date Sukh Pollock PA-C [address] [facility], [address] [address] PCP - MMO ACO PCP 05/02/23 Ayaka Doss, ASSESSMENT COORDINATOR-SYRUP FILTERER [address] [place] [address] PCP - General Family Medicine 04/27/24 Director Of Psychology Relationship Specialty Start Date End Date Ayaka Doss ASSESSMENT COORDINATOR-SYRUP FILTERER [address] [place] [address] PCP - General Family Medicine 04/27/24 Director Of Psychology Relationship Specialty Start Date End Date Sukh Pollock PA-C [address] [facility], [address] [address] PCP - MMO ACO PCP 05/02/23 Ayaka Doss, ASSESSMENT COORDINATOR-SYRUP FILTERER [address] [place] [address] PCP - General Family Medicine 04/27/24 Director Of Psychology Relationship Specialty Start Date End Date Sukh Pollock PA-C [address] [facility], [address] [address] PCP - MMO ACO PCP 05/02/23 Ayaka Doss, ASSESSMENT COORDINATOR-SYRUP FILTERER [address] [place] [address] PCP - General Family Medicine 04/27/24 Director Of Psychology Relationship Specialty Start Date End Date Ayaka Doss ASSESSMENT COORDINATOR-SYRUP FILTERER [address] [place] [address] PCP - General Family Medicine 04/27/24 Ayaka Doss ASSESSMENT COORDINATOR-SYRUP FILTERER [address] [place] [address] PCP - MMO ACO PCP 06/02/24 Director Of Psychology Relationship Specialty Start Date End Date Ayaka Doss ASSESSMENT COORDINATOR-SYRUP FILTERER [address] [place] [address] PCP - General Family Medicine 04/27/24 Ayaka Doss ASSESSMENT COORDINATOR-SYRUP FILTERER [address] [place] [address] PCP - MMO ACO PCP 06/02/24 Director Of Psychology Relationship Specialty Start Date End Date Ayaka Doss ASSESSMENT COORDINATOR-SYRUP FILTERER [address] [place] [address] PCP - General Family Medicine 04/27/24 Ayaka Doss, ASSESSMENT COORDINATOR-SYRUP FILTERER [address] [place] [address] PCP - MMO ACO PCP 06/02/24 Director Of Psychology Relationship Specialty Start Date End Date Ayaka Doss ASSESSMENT COORDINATOR-SYRUP FILTERER [address] [place] [address] PCP - General Family Medicine 04/27/24 Ayaka Doss, ASSESSMENT COORDINATOR-SYRUP FILTERER [address] [place] [address] PCP - MMO ACO PCP 06/02/24 Director Of Psychology Relationship Specialty Start Date End Date Ayaka Doss ASSESSMENT COORDINATOR-[employer]RUP FILTERER [address] [place] [address] PCP - General Family Medicine 04/27/24 Ayaka Doss, ASSESSMENT COORDINATOR-SYRUP FILTERER [address] [place] [address] PCP - MMO ACO PCP 06/02/24 Team Status: Active Member Role Status Dates Ayaka Doss NP-C Primary Care Provider Active Team Status: Inactive Member Role Status Dates Dr. Daniel Schneider , DO Emergency Provider Active Start: November 05, 2024 End: November 05, 2024 Ayaka Doss NP-C Primary Care Provider Active Start: November 05, 2024 End: November 05, 2024 Director Of Psychology Relationship Specialty Start Date End Date Ayaka Doss FNP [address] [place] [address] PCP - General Family Medicine 11/23/24 Director Of Psychology Relationship Specialty Start Date End Date Ayaka Doss, ASSESSMENT COORDINATOR-SYRUP FILTERER [address] [place] [address] PCP - General Family Medicine 04/27/24 Ayaka Doss, ASSESSMENT COORDINATOR-SYRUP FILTERER [address] [facility], [address] [place] [address] PCP - MMO ACO PCP 06/02/24 Director Of Psychology Relationship Specialty Start Date End Date Ayaka Doss FNP [address] [facility] [place] [address] PCP - General Family Medicine 11/23/24 Director Of Psychology Relationship Specialty Start Date End Date Ayaka Doss, ASSESSMENT COORDINATOR-[employer]RUP FILTERER PCP - General Family Medicine 04/27/24 Ayaka Doss, ASSESSMENT COORDINATOR-SYRUP FILTERER [address] [facility], [address] [place] [address] PCP - MMO ACO PCP 06/02/24 Team [...] Team Status: Inactive Member Role Status Dates ACRLA Plascencia Primary Care Provider Active Start: January [...] November 05, 2024 End: November 05, 2024 Aayka Doss NP-C Primary Care Provider Active Start: November 05, 2024 End: November 05, 2024 Team Status: Inactive Member Role/Relationship Status Dates Ayaka Doss CIRCUS SUPERVISOR-C Primary Care Provider Active Start: January 12, [...] Inactive Member Role/Relationship Status Dates Ayaka Doss CIRCUS SUPERVISOR-C Primary Care Provider Active Start: February 22, 2025 End: February 22, 2025 Ayaka Doss NP-C Referring Provider Active St art: February 22, 2025 End: February 22, 2025 Dr. Marcie Santana MD Attending Provider Active Start: February 22, 2025 End: February 22, 2025 Team Status: Inactive Member Role/Relationship Status Dates Ayaka Doss CIRCUS SUPERVISOR-C Primary Care Provider Active Start: January 12, 2025 End: January 12, 2025 Ayaka Doss CIRCUS SUPERVISOR-C Referring Provider Active St art: January 12, 2025 End: January 12, 2025 Dr. Kirsten Aragon DO Attending Provider Activ e Start: January 12, 2025 End: January 12, 2025 Team Status: Inactive Member Role/Relationship Status Dates Ayaka Doss CIRCUS SUPERVISOR-C Primary Care Provider Active Start: January 26, 2025 End: January 26, 2025 Ayaka Doss CIRCUS SUPERVISOR-C Referring Provider Active St art: January 26, 2025 End: January 26, 2025 Apple Browne CNM Attending Provider Active Start: January 26, 2025 End: January 26, 2025 Team Status: Inactive Member Role/Relationship Status Dates Ayaka Doss CIRCUS SUPERVISOR-C Primary Care Provider Active Start: January 26, 2025 End: January 26, 2025 Apple Browne CNM Attending Provider Active Start: January 26, 2025 End: January 26, 2025 Apple Browne CNM Referring Provider Active Start: January 26, 2025 End: January 26, 2025 Team Status: Inactive Member Role/Relationship Status Dates Ayaka Doss CIRCUS SUPERVISOR-C Primary Care Provider Active Start: February 22, 2025 End: February 22, 2025 Ayaka Doss NP-C Referring Provider Active St art: February 22, 2025 End: February 22, 2025 Dr. Marcie Santana MD Attending Provider Active Start: February 22, 2025 End: February 22, 2025 Team Status: Active Member Role/Relationship Status Dates Ayaka Doss CIRCUS SUPERVISOR-C Primary Care Provider Active Start: March 13, 2025 Apple Browne CNM Attending Provider Active Start: March 13, 2025 Apple Browne CNM Referring Provider Active Start: March 13, 2025 Team Status: Inactive Member Role/Relationship Status Dates Ayaka Doss CIRCUS SUPERVISOR-C Primary Care Provider Active Start: March 19, [...] BE BASED ON THE PRIMARY CLINICAL RECORDS. [facility] [employer] [facility]. provides no warranty or guarantee of the accuracy or completeness of information in this document.
== END | disposition home or self-care (01) ==
LOC: LABSPEC 16:45
PROVIDERS: Referring Provider Obstetrics & Gynecology; Visit Provider Obstetrics & Gynecology
DX: R30.0 Dysuria (principal)
CPT/HCPCS: 87086; 87088

== ENCOUNTER → 2025-06-08 | Outpatient (CLI) | payer OTHER, SELFPAY ==
[2025-06-08 15:32] LABS: Hematocrit 29.2 % (37-47); Hemoglobin 10.6 g/dL (12.0-15.0); Immature Granulocytes Count 0.120 X10^3/uL (0.0-0.0); Mean Corp Hgb Conc 36.3 g/dL (32-36); Mean Corpuscular Volume 83.7 fL (81-99); Mean Platelet Vol. 10.4 fl (6.2-12.0); NRBC Flagged by Analyzer 0 % (0-5); Platelet Count 226 K/mm3 (150-450); RBC Distribution Width CV 11.2 % (11.6-14.6); RBC Distribution Width SD 33.8 fl (35.1-43.9); Red Blood Count 3.49 M/mm3 (4.2-5.4); White Blood Count 8.6 K/mm3 (4.4-11.0)
[2025-06-08 16:26] LABS: Glucose Challenge Gest 1H 50g 69 mg/dL (70-140); HIV Nonreactive (Nonreactive); Syphilis Antibodies Nonreactive (Nonreactive)
== END | disposition home or self-care (01) ==
PROVIDERS: Visit Provider Obstetrics & Gynecology
DX: O09.92 Supervision of high risk pregnancy, unspecified, second trimester (principal); Z3A.00 Weeks of gestation of pregnancy not specified; Z13.1 Encounter for screening for diabetes mellitus
CPT/HCPCS: 36415; 82950; 85025; 86703; 86780

== ENCOUNTER → 2025-06-27 | Outpatient (CLI) | payer OTHER, SELFPAY | END | disposition home or self-care (01) | LOC: LABSPEC 12:09 | PROVIDERS: Referring Provider Student in an Organized Health Care Education/Training Program; Visit Provider Student in an Organized Health Care Education/Training Program | DX: N30.10 Interstitial cystitis (chronic) without hematuria (principal) | CPT/HCPCS: 87077; 87086; 87088; 87186 ==

== ENCOUNTER 2025-07-02 20:50 | Outpatient (CLI) | payer OTHER, SELFPAY ==
--- OUTSIDE RECORDS SUMMARY | 2025-07-02 21:01 | XMS RPT_ITS | CCD ---
Author Organization [facility] Care Team Providers Care Drafter Tool Design Name Role Phone Freya Dobson Unavailable Unavailable Freya Dobson Unavailable Unavailable Newramonital Sukh M Unavailable Unavailable Unavailable Unavailable Unavailable Newdean Sukh Unavailable Freya Dial Unavailable Unavailable ChávezSharda Unavailable Unavailable Newbill PA-C Sukh M Primary Care Provider [phone] Newbill PA-C, Sukh M Unavailable Newbill PA-C, Sukh M Unavailable [phone] Manocchio, Paola Unavailable Unavailable Unavailable Unavailable Newbill PA-C, Sukh M Unavailable Newbill, Sukh Primary Care Unavailable Ms. Freya Dial Attending Unava ilable Newbill, Sukh Primary Care Unavailable Newbill, Sukh Attending Unavailable Newbill, Sukh Primary Care Unavailable Manocchio, Paola Attending Unavailable Newbill, Sukh Primary Care Unavailable Newbill, Sukh Attending Unavailable Mariah Lr Attending Unavailable MD SHARDA CHÁVEZ Referring Unava ilable Newbill, Mr. Marcussola Mireles Primary Care Unavail able MD SHARDA [...] Care Unavail able Newbill Sukh MILLER Unavailable [phone] [place] RATE SETTER-CONTINUOUS DRYOUT OPERATOR, Ayaka B Primary Care Provider Selam RATE SETTER-CONTINUOUS DRYOUT OPERATOR, Ayaka B Unavailable Selam RATE SETTER-CONTINUOUS DRYOUT OPERATOR, Ayaka B Primary Care Provider Selam RATE SETTER-CONTINUOUS DRYOUT OPERATOR, Ayaka B Unavailable Dr. Daniel Schneider DO Emergency Provider [phone] Selam SPOOL WORKER-C, Ayaka Primary Care Provider Selam KNUCKLE STRAP SEWER, [facility] Primary Care Provider Selam RATE SETTER-CONTINUOUS DRYOUT OPERATOR, Ayaka B Unavailable RYAN GUERRA Attending Unavailable [...] SELAM, AYAKA B Primary Care Unavailable Selam RATE SETTER-CONTINUOUS DRYOUT OPERATOR, Ayaka B Primary Care Provider STARR OTRREZ Referring Unavailable HAINESJOHANN Attending Unavailabl e SELAM, AYAKA Primary Care Unavailable SELAM, AYAKA Primary Care Unavailable JOHANN HAINES Referring Unavailabl e JOHANN HAINES Attending Unavailabl e STARR TORREZ Attending Unavailable SELAM, AYAKA Primary Care Unavailable Dr. Daniel Schneider DO Attending Provider Selam SPOOL WORKER-C, Ayaka Referring Provider [phone] Kirsten Aragon DO Attending Provider Apple Browne CNM Attending Provider [phone] Apple Browne CNM Referring Provider [phone] Dr. Marcie Santana MD Attending Provider Selam SPOOL WORKER-C, Ayaka Primary Care Provider [phone] Kelsey Harrell CNM Attending Provider [phone] Kelsey Harrell CNM Referring Provider [phone] JAYDEN TAYLOR Attending Unavailable SELAM, AYAKA B Primary Care Unavailable SELAM, AYAKA B Primary Care Unavailable Selam SPOOL WORKER-C, Ayaka Primary Care Physician Dr. Kirsten Aragon DO Attending Physician Apple Browne CNM Attending Physician [phone] Dr. Marcie Santana MD Attending Physician Kelsey Harrell CNM Attending Physician [phone] Marquita SPOOL WORKER-CNelli Attending Physician [phone] MARCIE SANTANA Referring Unavailabl e FIORDALIZA PONCE Attending Unavailable SELAM, AYAKA B Primary Care Unavailable SELAM, AYAKA B Primary Care Unavailable KIRSTEN CLEMENTS Attending Unavailable MARCIE SANTANA Referring Unavailabl e SELAM, AYAKA B Attending Unavailable SELAM, AYAKA B Primary Care Unavailable SELAM, AYAKA B Attending Unavailable SELAM, AYAKA B Primary Care Unavailable SELAM, AYAKA B Attending Unavailable SELAM, AYAKA B Primary Care Unavailable SELAM, AYAKA B Attending Unavailable SELAM, AYAKA B Primary Care Unavailable CHAD VALDEZ Attending Unavailable SELAM, AYAKA B Primary Care Unavailable Selam SPOOL WORKER-C, Ayaka Primary Care Physician Selam SPOOL WORKER-C, Ayaka Referring Provider Apple Browne CNM Attending Physician [phone] Apple Browne CNM Referring Provider [phone] Dr. Kirsten Aragon DO Attending Physician Dr. Kirsten Aragon DO Referring Provider Selam, Ayaka Primary Care Unavailable Kirsten Aragon Attending Unavailabl Kelsey Keyes Referring Unavailable Selam, Ayaka Primary Care Unavailable Kelsey Harrell Attending Unavailable Selam, Ayaka Primary Care Unavailable BrowneApple Attending Unavailable Browne, Apple Referring Unavailable Selam, Ayaka Primary Care Unavailable Kirsten Aragon Attending Unavailabl e Kirsten Aragon Referring Unavailabl e Selam, Ayaka Primary Care Unavailable Daniel Schneider Attending Unavailable Selam, Ayaka Primary Care Unavailable BrowneApple Attending Unavailable Browne, Apple Referring Unavailable Selam, Ayaka Referring Unavailable Selam, Ayaka Primary Care Unavailable Marcie Santana Attending Unavailable Selam, Ayaka Primary Care Unavailable Selam, Ayaka Referring Unavailable Browne, Apple Attending Unavailable Selam, Ayaka Primary Care Unavailable Selam, Ayaka Referring Unavailable Kirsten Aragon Attending Unavailabl e Selam, Ayaka Referring Unavailable Selam, Ayaka Primary Care Unavailable Kirsten Aragon Attending Unavailabl e Selam, Ayaka Referring Unavailable Selam, Ayaka Primary Care Unavailable Kirsten Aragon Attending Unavailabl e Selam, Ayaka Referring Unavailable Selam, Ayaka Primary Care Unavailable Nelli Juárez NP Attending Unavailable Selam, Ayaka Referring Unavailable Selam, Ayaka Primary Care Unavailable Kelsey Harrell Attending Unavailable Allergies Allergy Classification Reported Allergen(s) Allergy Type Date of Onset Reaction(s) Facility (20 sources) Sulfonamides (Antibiotic); Translations: [Sulfa Drugs] Allergy to drug (finding) [facility] Work Phone: (11 sources) Serotonin Reuptake Inhibitors (Ssris); Translations: [Serotonin Reuptake Inhibitors] Allergy to drug (finding) [facility] Work Phone: (20 sources) Serotonin; Translations: [SEROTONIN] Drug Allergy 3 Unknown, [facility] (20 sources) Sulfonamides (Antibiotic); Translations: [SULFA (SULFONAMIDE ANTIBIOTICS)] Drug Allergy 3 [facility] Work Phone: (9 sources) Sulfonamides (Antibiotic) Allergy to substance 5 [facility] (1 source) Serotonin Drug Allergy 3 [facility] (1 source) Sulfonamides (Antibiotic) Drug allergy (disorder) 5 [facility] Medications Current Medications Medication Drug Class(es) [...] 10-14-2023 acetaminophen (Tylenol) tabl et 975 mg [id number] 200 actuat albuterol 0.09 mg/actuat metered dose [...] oral tablet (2 sources) alpha-Adrenergic Agonist, Uncompetitive E-uzwuht-N-aspartate Receptor Antagonist, Sigma-1 Agonist Start: 11-03-2022 End: 01-26-2023 take 1 tablet by mouth four times daily as needed bbaowkkmpzlbeid-LA-wrodjygnucs 60-15-400 mg tablet Indications: Pharyngitis, unspecified etiology Take 1 tablet by mouth 4 times a day as needed (cold/allergy symptoms). 30 tablet 1 11/03/2022 01/26/2023 Discontinued (Therapy completed) diphenhydrAMINE (1 source) Histamine-1 Receptor Antagonist Start: 04-28-2024 25 mg, intravenous, Once as needed, itching, allergic reaction, Starting on Wed04/28/24 at 0940, For 1 dose, Recovery (only) docosahexaenoic acid 200 mg oral capsule (8 sources) Start: 01-12-2025 docusate sodium 100 mg oral capsule (19 sources) Start: 01-12-2025 take 1 capsule by mouth once daily End: 09-20-2024 take 1 capsule by mouth [...] End : 28-Sep-2022 Complete Comment on above: [facility], Medication=DULOXETINE HCL 20MG [facility], [id number], OriginatingProvider=SUKH POLLOCK, Duration=30, Refills=11, Date Last Modified/Filled=23-Sep-2022 [id number] 0.3 ml EPINEPHrine 1 mg/ml auto-injector (3 [...] anterolateral thigh is recommended site of administration famotidine 20 mg oral tablet (3 sources) Histamine-2 Receptor Antagonist Start: 05-03-2025 take 1 tablet by mouth twice daily Start: 10-14-2023 End: 10-14-2023 famotidine PF (Pepcid) injec tion 20 mg Start: 07-02-2022 End: 08-27-2022 take 1 tablet by mouth once daily Famotidine 20 MG Oral Tablet TAKE 1 TABLET EVERY 12 HOURS DAILY. Quantity: 14 Refills: 1 Ordered: 02-Jul-2022 Sukh Pollock PA-C Start : 02-Jul-2022 End : 27-Aug-2022 Complete 30 actuat fluticasone furoate 0.2 mg/actuat / vilanterol 0.025 mg/actuat dry powder inhaler (20 sources) Corticosteroid, beta2-Adrenergic Agonist Start: 03-23-2023 End: 04-27-2024 take 1 puff(s) by mouth once daily Breo Ellipta 200-25 mcg/dose inhaler Indications: Mild intermittent asthma without complication ([facility]) Inhale 1 puff by mouth once [...] Indications: Moderate persistent asthma, unspecified whether complicated ([facility]) INHALE 1 PUFF BY MOUTH EVERY [...] 01-12-2025 take 1 tablet by mouth once da chadd End: 04-28-2023 loratadine (Claritin) 10 mg tablet [...] every eight hours as needed for nausea Start: 09-11-2024 End: 09-20-2024 take 1 tablet [...] take 1 tablet by mouth once daily phenazopyridine hydrochloride 200 mg oral tablet (5 [...] 50 mL IV (1 source) Start: 04-28-20 6.25 mg, intravenous, Administer over 15 Minutes, Once as needed, Nausea/vomiting, second line, Starting on Wed04/28/24 at 0940, For 1 dose, Recovery (only) QUEtiapine 25 mg oral tablet (3 sources) Atypical Antipsychotic Start: 11-04-19 End: 05-02-20 take 1 tablet by mouth once daily at bedtime QUEtiapine (SEROquel) 25 mg tablet Indications: Anxiety and depression , Panic attacks Take 1 tablet (25 mg) by mouth once daily at bedtime. 30 tablet 5 11/03/2022 01/26/2023 Discontinued (Therapy completed) Comment on above: Source=[employer], Medication=QUEtiapine Fumarate 25MG TAB, OriginatingSource=[facility]ending [id number], OriginatingProvider=SUKH POLLOCK, Duration=30, Refills=5, Date Last Modified/Filled=03-Nov-2022 sertraline 50 mg oral tablet (17 sources) Serotonin Reuptake Inhibitor Start: 01-13-20 take 1 tablet by mouth once daily Start: 06-16-2024 End: 12-13-2024 take 1 tablet by mouth once daily sertraline (Zoloft) 50 mg tablet Indications: Anxiety and depression Take 1 tablet by mouth once daily 30 tablet 12/11/2024 Active Start: 05-21-2022 take 1 tablet by shawn once daily Sertraline HCl - 50 MG [...] 02/23/2023 Active ubiquinol 100 mg oral capsule (8 sources) Start: 01-12-2025 take 1 capsule by mouth twice daily 24 hr venlafaxine 37.5 mg extended release [...] 12 HOURS DAILY. Quantity: 20 Refills: 0 JohnnyFreya mena DO Start : 01-Sep-2019 Active aprepitant 40 [...] oral solution (5 sources) alpha-Adrenergic Agonist, Uncompetitive J-ezgezc-F-aspartate Receptor Antagonist, Sigma-1 Agonist Start: 09-09-2024 End: 09-20-2024 take 5 mL by mouth four times daily as needed for cough bxthbhzhdtvvrol-nyymubuxj-YX (Bromfed DM) 2-30-10 mg/5 mL syrup Indications: Acute non-recurrent maxillary sinusitis Take 5 mL by mouth 4 times a day as needed for allergies, congestion or cough. 240 mL 09/09/2024 09/20/2024 Discontinued (Therapy completed) Start: 06-24-2021 End: 09-01-2021 take 5-10 mL by mouth every four to six hours as needed for cough Vyfuxjtst-Hnmjttqp-ES 30-2-10 MG/5ML Ora l Syrup take 5-10 mL po q4-6 hrs prn cough, cold, or allergy symptoms Quantity: 200 Refills: 0 Ordered: 24-Jun-2021 Sukh Pollock PA-C [...] Complete Start: 05-10-2019 take 2 puff(s) by [facility] twice daily Symbicort 160-4.5 MCG/ACT Inhalation Aerosol INHALE 2 PUFFS TWICE DAILY. RINSE MOUTH AFTER USE. Quantity: 1 Refills: 3 Christinetracy Freya ESPINOSA Start : 10-May-2019 Active 10.2 GM Inhaler take 2 puff(s) by in halation every twelve hours budesonide-formoterol 160-4.5 mcg/puff Aerosol inhaler Inhale 2 puffs every 12 hours. Active take 2 puff(s) by [facility] twice daily budesonide-formoteroL (Symbicort) 160-4.5 mcg/actuation inhaler Inhale 2 puffs 2 times a day. Rinse mouth with water after use to reduce aftertaste and incidence of candidiasis. Do not swallow. Active take 2 puff(s) by mo [facility] twice daily budesonide-formoteroL (Symbicort) 160-4.5 mcg/actuation inhaler [...] Start: 05-25-2022 take 1 tablet by shawn th once daily buPROPion HCl ER (XL) 150 [...] mg docusate sodium 50 mg / sennosides, alf 8.6 mg oral tablet (7 sources) Start: [...] 12-22-2023 End: 12-21-2024 estradiol (Estrace) 0.01 % (0.1 mg/gram) vaginal cream Indications: Dyspareunia in female Apply to vagina nightly for 1 week then every Wednesday/Wednesday/Wednesday. 42.5 g 5 12/22/2023 06/14/2024 Discontinued (Therapy completed) Nortrel 1/35 (28) 1-35 MG-MCG Oral Tablet (1 source) Estrogen Start: 05-16-2019 Nortrel 1/35 (28) 1-35 MG-MCG Oral Tablet TAKE DIRECTED. Quantity: 1 Refills: 11 Freya Dobson DO Start : 16-May-2019 Active 28 Tablet Pack fluconazole 150 mg oral tablet (5 sources) [...] 125 mg mirtazapine 30 mg oral tablet (13 sources) Start: 03-04-2023 End: 08-31-2023 take 1 [...] Complete Start: 09-01-2019 take 3 tablets by mo [facility] once daily, then take 2 [...] above: Stable, no inhalers Biliary tract disease (9 sources) Biliary sludge; Translations: [Other specified diseases of gallbladder] 02-19-2023 Episodic Endometriosis (20 sources) Endometriosis (clinical); Translations: [Endometriosis, unspecified] Onset: 4 10-29-2023 Chronic Comment on above: Dr Jayden Frank [facility]/surgery 04/2024. Esophageal disorders (20 sources) Gastroesophageal reflux disease; Translations: [Esophageal reflux] Onset: 5 04-27-2024 Chronic Comment on above: Pantopazole Esophageal disorders (1 source) Esophageal disorders; Translations: [Gastro-esophageal reflux disease with esophagitis, without bleeding] Onset: 5 Genitourinary symptoms and ill-defined conditions (20 sources) History of urinary tract infection; Translations: [Personal history, urinary (tract) infection] Onset: 3 Resolved: 2 11-19-2022 Episodic Menstrual disorders (15 sources) Amenorrhea; Translations: [Amenorrhea, unspecified] Onset: 5 01-12-2025 Chronic Miscellaneous mental health disorders (20 sources) Psychophysiologic insomnia; Translations: [Persistent disorder of initiating or maintaining sleep] Onset: 3 11-02-2022 Chronic Mood disorders (20 sources) Depressive disorder; Translations: [Depression] 02-18-2023 Chronic Comment on above: Zoloft Mood disorders (1 source) Mood disorders; Translations: [Depression, unspecified] Onset: 5 Osteoarthritis (9 sources) Arthritis; Translations: [Unspecified osteoarthritis, unspecified site] 02-18-2023 Chronic Comment on above: lower back Other aftercare (1 source) Other 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 continuous churn (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) 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 therapy; Translations: [Other buttermaker continuous churn (current) drug therapy] Onset: 3 Episodic Other aftercare (1 source) Postoperative visit; Translations: [Encounter for other specified surgical aftercare] 10-29-2023 Episodic Other complications of (20 sources) High risk ; Translations: [Supervision of high risk , unspecified, unspecified trimester] 01-12-2025 Episodic Comment on above: G1, ERIN 08/31/25, Hu sband: Vinny PRR ERIN 6, : Vinny Other complications of (2 sources) Supervision of high risk , unspecified, second trimester; Translations: [Supervision of high risk , unspecified, second trimester] Onset: 5 Episodic Other complications of (1 source) Other specified [...] muscle] 01-05-2025 Episodic Other connective tissue disease (15 sources) Female pelvic floor dysfunction; Translations: [Other [...] Onset: 3 11-02-2022 Chronic Other gastrointestinal disorders (14 sources) Irritable bowel syndrome; Translations: [Irritable bowel [...] encounter; Translations: [Angioneurotic edema, initial encounter] Onset: Episodic Other nervous system disorders (1 source) Postoperative pain ; Translations: [Other acute postprocedural pain] 04-28-2024 Episodic Other screening for suspected conditions (not mental disorders or infectious disease) (20 sources) Computed tomography result abnormal; Translations: [Nonspecific (abnormal) findings on radiological and other examination of gastrointestinal tract] Onset: 5 Resolved: 2 03-13-2024 Episodic Other upper respiratory disease (20 sources) Seasonal allergy; Translations: [Allergic rhinitis, cause unspecified] Onset: 3 11-02-2022 Chronic Other upper respiratory disease (2 sources) Pain in throat 10-31-2022 Episodic Comment on above: SORE THROAT Residual codes; unclassified (9 sources) History of laparoscopy; Translations: [Other specified postprocedural states] 10-10-2024 Episodic Comment on above: 09/2023 [facility] endometrio sis Residual codes; unclassified (1 source) Swelling; Translations: [Edema, unspecified] 01-04-2025 Episodic Residual codes; unclassified (2 sources) Edema, unspecified; Translations: [Edema, unspecified] Onset: 5 Episodic Residual codes; unclassified (13 sources) Infertile 01-12-2025 Episodic Comment on above: Clomid x1 Residual codes; unclassified (1 source) 24 weeks gestation of ; Translations: [24 weeks gestation of ] Onset: 5 Episodic Residual codes; unclassified (1 source) 16 weeks gestation of ; Translations: [16 weeks gestation of ] Onset: 5 Episodic Spondylosis; intervertebral disc disorders; other back [...] N94.10 - Unspecified dyspareunia Urinary tract infections (4 sources) Interstitial cystitis (chronic) without hematuria; Translations: [Chronic interstitial cystitis] Onset: 5 01-05-2025 Chronic Comment on above: urine cultures every other visit - patient unsure when has an IC flare vs bladder infection. Past or Other Problems Problem Classification Problem [...] of respiratory system] Resolved: 1 Episodic Other and delivery including normal (20 sources) ; Translations: [Encounter for supervision of normal , unspecified, unspecified trimester] Onset: 5 09-20-2024 Episodic Comment on above: Discussed genetic/ca rrier testing - undecided Discussed genetic/ca rrier testing -declines Discussed genetic/ca rrier testing -declines. Anatomy nl. Other upper respiratory infections (14 sources) Acute [...] Test Name Value Interpretation Reference Range Facility CBC W/Diff, Automatedon 11-0 Absolute Lymph 1.77 X10 3/uL Normal 0.83-4.51 [facility] Comment on above: Performed By: #### L 509.4006, L100.0100, L3890.6301, L7000.1800, BTS, M100.2200, L3890.6102, L3890.6006, L509.8002 #### [facility] [address] [place], [address] Absolute Neut 5.9 X10 3/uL Normal 2.0-7.7 [facility] Comment on above: Performed By: #### L 509.4006, L100.0100, L3890.6301, L7000.1800, BTS, M100.2200, L3890.6102, L3890.6006, L509.8002 #### [facility] [address] [place], [address] Basophils/100 WBC (Bld) 0.3 % Normal 0-1 [facility] Comment on above: Performed By: #### L 509.4006, L100.0100, L3890.6301, L7000.1800, BTS, M100.2200, L3890.6102, L3890.6006, L509.8002 #### [facility] [address] [place], [address] Eosinophils/100 WBC (Bld) 2.6 % Normal 0-5 [facility] Comment on above: Performed By: #### L 509.4006, L100.0100, L3890.6301, L7000.1800, BTS, M100.2200, L3890.6102, L3890.6006, L509.8002 #### [facility] [address] [place], [address] Erythrocyte distribution width (RBC) [Ratio] 11.2 % Low 11.6-14.6 [facility] Comment on above: Performed By: #### L 509.4006, L100.0100, L3890.6301, L7000.1800, BTS, M100.2200, L3890.6102, L3890.6006, L509.8002 #### [facility] [address] [place], [address] Hematocrit (Bld) [Volume fraction] 29.2 % Low 37-47 [facility] Comment on above: Performed By: #### L 509.4006, L100.0100, L3890.6301, L7000.1800, BTS, M100.2200, L3890.6102, L3890.6006, L509.8002 #### [facility] [address] [place], [address] Hemoglobin (Bld) [Mass/Vol] 10.6 g/dL Low 12.0-15.0 [facility] Comment on above: Performed By: #### L 509.4006, L100.0100, L3890.6301, L7000.1800, BTS, M100.2200, L3890.6102, L3890.6006, L509.8002 #### [facility] [address] [place], [address] IG% 1.400 High 0.0-0.9 [facility] Comment on above: Result Comment: IG% - Immature Granulocytes (promyelocytes, myelocytes and metamyelocytes) > 1% indicates that a LEFT SHIFT is Present. Performed By: #### L 509.4006, L100.0100, L3890.6301, L7000.1800, BTS, M100.2200, L3890.6102, L3890.6006, L509.8002 #### [facility] [address] [facility] [address] [place], [address] Lymphocytes/100 WBC (Bld) 20.6 % Normal 19-41 [facility] Comment on above: Performed By: #### L 509.4006, L100.0100, L3890.6301, L7000.1800, BTS, M100.2200, L3890.6102, L3890.6006, L509.8002 #### [facility] [address] [place], [address] MCH (RBC) [Entitic mass] 30.4 pg Normal 27.0-32.0 [facility] Comment on above: Performed By: #### L 509.4006, L100.0100, L3890.6301, L7000.1800, BTS, M100.2200, L3890.6102, L3890.6006, L509.8002 #### [facility] [address] [place], [address] MCHC (RBC) [Mass/Vol] 36.3 g/dL High 32-36 [facility] Comment on above: Performed By: #### L 509.4006, L100.0100, L3890.6301, L7000.1800, BTS, M100.2200, L3890.6102, L3890.6006, L509.8002 #### [facility] [address] [place], [address] MCV (RBC) [Entitic vol] 83.7 fL Normal 81-99 [facility] Comment on above: Performed By: #### L 509.4006, L100.0100, L3890.6301, L7000.1800, BTS, M100.2200, L3890.6102, L3890.6006, L509.8002 #### [facility] [address] [place], [address] Monocytes/100 WBC (Bld) 7.2 % Normal 0-10 [facility] Comment on above: Performed By: #### L 509.4006, L100.0100, L3890.6301, L7000.1800, BTS, M100.2200, L3890.6102, L3890.6006, L509.8002 #### [facility] [address] [facility] [place], [address] Neutrophils/100 WBC (Bld) 67.9 % Normal 47-70 [facility] Comment on above: Performed By: #### L 509.4006, L100.0100, L3890.6301, L7000.1800, BTS, M100.2200, L3890.6102, L3890.6006, L509.8002 #### [facility] [address] [facility] [address] [place], [address] Nucleated RBC (Bld) [#/Vol] 0 10*3/uL Normal 0-5 [facility] Comment on above: Performed By: #### L 509.4006, L100.0100, L3890.6301, L7000.1800, BTS, M100.2200, L3890.6102, L3890.6006, L509.8002 #### [facility] [address] [place], [address] Platelet mean volume (Bld) [Entitic vol] 10.4 fL Normal 6.2-12.0 [facility] Comment on above: Performed By: #### L 509.4006, L100.0100, L3890.6301, L7000.1800, BTS, M100.2200, L3890.6102, L3890.6006, L509.8002 #### [facility] [address] [place], [address] Platelets (Bld) [#/Vol] 226 10*3/uL Normal 150-450 [facility] Comment on above: Performed By: #### L 509.4006, L100.0100, L3890.6301, L7000.1800, BTS, M100.2200, L3890.6102, L3890.6006, L509.8002 #### [facility] [address] [place], [address] RBC (Bld) [#/Vol] 3.49 10*6/uL Low 4.2-5.4 [facility] Comment on above: Performed By: #### L 509.4006, L100.0100, L3890.6301, L7000.1800, BTS, M100.2200, L3890.6102, L3890.6006, L509.8002 #### [facility] [address] [place], [address] RDW SD 33.8 fl Low 35.1-43.9 [facility] Comment on above: Performed By: #### L 509.4006, L100.0100, L3890.6301, L7000.1800, BTS, M100.2200, L3890.6102, L3890.6006, L509.8002 #### [facility] [address] [place], [place], [address] WBC (Bld) [#/Vol] 8.6 10*3/uL Normal 4.4-11.0 [facility] Comment on above: Performed By: #### L 509.4006, L100.0100, L3890.6301, L7000.1800, BTS, M100.2200, L3890.6102, L3890.6006, L509.8002 #### [facility] [address] [facility] [address] [place], [place], [address] Glucose Challenge Gest 1H 50 sanjeev 06-08-2025 GLU GEST 50g 1H 69 mg/dL Low 70-140 [facility] Comment on above: Performed By: #### L 509.4006, L100.0100, L3890.6301, L7000.1800, BTS, M100.2200, L3890.6102, L3890.6006, L509.8002 #### [facility] [address] [place], [place], [id number] HIVon 06-08-2025 HIV Non-Reactive Normal Nonreactive [facility] Comment on above: Result Comment: Non- Reactive Reactive Repeatedly reactive samples must be confirmed according to CDC recommended confirmatory algorithms. The subresults for either HIVAG or AHIV can be used as an aid in the selection of the confirmation algorithm for reactive samples. Send out specimens with Reactive results to [facility] for confirmation. Order the HIV antibody detection and differentiation: lc#[id number] Performed By: #### L 509.4006, L100.0100, L3890.6301, L7000.1800, BTS, M100.2200, L3890.6102, L3890.6006, L509.8002 #### [facility] [address] [place], [place], [address] Lab Manager Office Visit Reporton 06-08-2025 Lab Manager Office Visit Report [facility]'[address], [address] [place] [address] OFFICE VISIT Date of Service: 06/08/25 MR#: [id number] Acct: [id number] Name: KM STRANGE Rep #: [id number] : 1995 Provider: Dr. Kirsten Mason DO Age/Sex: 30/F Location: [facility] Status: Signed Intake Vital Signs 04/18/25 08:21 05/17/25 15:52 06/08/25 14:52 Height 5 ft 5 ft 5 ft Weight: 156 lb BMI 30.4 BP 108/75 Intake Visit Reasons: 28 wk ob glucose Mallet Cutter Required: No Is patient in pain?: No Allergies Sulfa (Sulfonamide Antibiotics) Allergy (Intermediate, Verified 06/08/25 14:54) Hives Medications ???Medication ???Instructions ???Recorded ???Confirmed ???Type pantoprazole 40 mg tablet,delayed 40 mg PO DAILY 02/18/23 06/08/25 History release ondansetron 4 mg disintegrating 4 mg PO Q8H PRN PRN Nausea #10 tab s 11/05/24 06/08/25 Rx tablet coQ10 (ubiquinol) 100 mg capsule 100 mg PO BID 01/12/25 06/08/25 Hi story (QH-absorb) docosahexaenoic acid 200 mg mg PO 01/12/25 06/08/25 History capsule ( DHA) docusate sodium 100 mg capsule 100 mg PO QDAY 01/12/25 06/08/25 H istory loratadine 10 mg tablet (Claritin) 10 mg PO QDAY 01/12/25 06/08/25 History sertraline 50 mg tablet (Zoloft) 50 mg PO QDAY 01/12/25 06/08/25 Hi story famotidine 20 mg tablet (Pepcid) 20 mg PO BID #60 tabs 05/03/2502/23 Rx Last Menstrual Period: 11/24/24 Zika: Zika virus screening: Negative : No PFSH PFSH Medical History Arthritis Asthma Surgical History S/P laparoscopic procedure History of appendectomy Family History Mother Diabetes Hypertension Thyroid cancer Cervical cancer Father Hypertension Social History adopted: No household members: spouse housing: house current occupational status: employed 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 OB Visit ERIN Calculator Estimated Delivery Date Method Current WG Current Estimate 08/31/25 LMP (Certain) 28w 0d Expected Delivery Route/Plan Labor Preferences- CB/BF classes: [...] in visit notes/problem list details Initial Weight: 117 lb Date -???-???-???-???-???-??? -???-???-???-???-???-??? - EGA Weight BP Urine Prot -???-???-???-???-???-??? -???-???-???-???-???-??? - Glucose FHR FuHt Pres Dilation -???-???-???-???-???-??? -???-???-???-???-???-??? - Effaced St Visit Note 01/26/25 -???-???-???-???-???-??? -???-???-???-???-???-??? - 9w 0d 128 lb 8 oz (+11 lb 8 oz) 106/74 -???-???-???-???-???-??? -???-???-???-???-???-??? - 175 -???-???-???-???-???-??? -???-???-???-???-???-??? - LC- CRL 1.75 cm con with lmp. declines nipt. 02/22/25 -???-???-???-???-???-??? -???-???-???-???-???-??? - 12w 6d 133 lb 6 oz (+16 lb 6 oz) 103/72 Negative -???-???-???-???-???-??? -???-???-???-???-???-??? - Negative 150 -???-???-???-???-???-??? -???-???-???-???-???-??? - SM- no vb cr amping discussed PF (more content not included)... Normal [facility] Syphilis Antibodieson 2024 Syphilis Abs Non-Reactive Normal Nonreactive [facility] Comment on above: Performed By: #### L 509.4006, L100.0100, L3890.6301, L7000.1800, BTS, M100.2200, L3890.6102, L3890.6006, L509.8002 #### [facility] [address] [place], [address] Urine Cultureon 05-19-2025 URC Below infection leve l. Mixed Gram Pos Gram Neg Org [place] Count 1000-10,000 MIXC Mixed contaminants. Submit a new specimen if indicated. Normal [facility] Comment on above: Performed By: #### L 509.4006, L100.0100, L3890.6301, L7000.1800, BTS, M100.2200, L3890.6102, L3890.6006, L509.8002 #### [facility] [address] [place], [address] Laboratory - Chemistry and C hemistry - challengeOrdered By: Kirsten Herrmann on 05-17-2025 Bilirubin Ql (U) Negative [facility] Glucose Ql (U) Negative [facility] Ketones Ql (U) Negative [facility] pH (U) 5.0 [pH] [facility] Specific gravity (U) [Rel density] 1.015 [facility] Urobilinogen (U) [Mass/Vol] 0.1427300 mg/dL [facility] - Hematology and Cell countsOrdered By: Kirsten Herrmann on 05-17-2025 Hemoglobin Ql (U) Negative [facility] - Specimen inform ationOrdered By: Kirsten Herrmann on 05-17-2025 Clarity (U) Clear [facility] Color (U) YELLOW [facility] - UrinalysisOrder ed By: Kirsten Herrmann on 05-17-2025 Nitrite Ql (U) Negative [facility] Protein Ql (U) Negative [facility] No Panel InformationOrdered By: Kirsten Herrmann on 05-17-2025 Urine Leukocytes Negatve [facility] Lab Manager Office Visit Reporton 05-17-2025 Lab Manager Office Visit Report [facility] [address], [address] [place] [address] OFFICE VISIT Date of Service: 05/17/25 MR#: [id number] Acct: [id number] Name: KM STRANGE Rep #: [id number] : 1995 Provider: Dr. Kirsten Mason, Age/Sex: 29/F Location: [facility] Status: Signed Intake Vital Signs 02/22/25 09:25 04/18/25 08:21 05/17/25 15:51 05/17/25 15:52 Height 5 ft 5 ft 5 ft 5 ft Weight: 154 lb 6 oz BMI 30.1 BP 111/74 Intake Visit Reasons: 24w 6d OB Mallet Cutter Required: No Is patient in pain?: No Allergies Sulfa (Sulfonamide Antibiotics) Allergy (Intermediate, Verified 05/17/25 15:51) Hives Medications ???Medication ???Instructions ???Recorded ???Confirmed ???Type pantoprazole 40 mg tablet,delayed 40 mg PO DAILY 02/18/23 05/17/25 History release ondansetron 4 mg disintegrating 4 mg PO Q8H PRN PRN Nausea #10 tab s 11/05/24 05/17/25 Rx tablet coQ10 (ubiquinol) 100 mg capsule 100 mg PO BID 01/12/25 05/17/25 Hi story (QH-absorb) docosahexaenoic acid 200 mg mg PO 01/12/25 05/17/25 History capsule ( DHA) docusate sodium 100 mg capsule 100 mg PO QDAY 01/12/25 05/17/25 H istory loratadine 10 mg tablet (Claritin) 10 mg PO QDAY 01/12/25 05/17/25 History sertraline 50 mg tablet (Zoloft) 50 mg PO QDAY 01/12/25 05/17/25 Hi story famotidine 20 mg tablet (Pepcid) 20 mg PO BID #60 tabs 05/03/25 Rx Last Menstrual Period: 11/24/24 Zika: Zika virus screening: Negative : No PFSH PFSH Medical History Arthritis Asthma Surgical History S/P laparoscopic procedure History of appendectomy Family History Mother Diabetes Hypertension Thyroid cancer Cervical cancer Father Hypertension Social History adopted: No household members: spouse housing: house current occupational status: employed 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 OB Visit ERIN Calculator Estimated Delivery Date Method Current WG Current Estimate 08/31/25 LMP (Certain) 24w 6d Expected Delivery Route/Plan Labor Preferences- CB/BF [...] in visit notes/problem list details Initial Weight: 117 lb Date -???-???-???-???-???-??? -???-???-???-???-???-??? - EGA Weight BP Urine Prot -???-???-???-???-???-??? -???-???-???-???-???-??? - Glucose FHR FuHt Pres Dilation -???-???-???-???-???-??? -???-???-???-???-???-??? - Effaced St Visit Note 01/26/25 -???-???-???-???-???-??? -???-???-???-???-???-??? - 9w 0d 128 lb 8 oz (+11 lb 8 oz) 106/74 -???-???-???-???-???-??? -???-???-???-???-???-??? - 175 -???-???-???-???-???-??? -???-???-???-???-???-??? - LC- CRL 1.75 cm con with lmp. declines nipt. 02/22/25 -???-???-???-???-???-??? -???-???-???-???-???-??? - 12w 6d 133 lb 6 oz (+16 lb 6 oz) 103/72 Negative -???-???-???-???-???-??? -???-???-???-???-???-??? - Negative 150 -???-???-???-???-???-??? -???-???-???-???-???-??? - SM- no vb cr amping dis (more content not included)... Normal [facility] Urine cultureOrdered By: Vanessa Herrmann on 05-17-2025 Bacteria identified Cx Nom (U) Mixed Gram Pos & Gram Neg Org Abnormal [facility] - Chemistry and C hemistry - challengeOrdered By: Nelli Juárez on 04-18-2025 Glucose Ql (U) Negative [facility] - UrinalysisOrder ed By: Nelli Juárez on 04-18-2025 Protein Ql (U) Negative [facility] Lab Manager Office Visit Reporton 04-18-2025 Lab Manager Office Visit Report [facility]'[address], [address] [place] [address] OFFICE VISIT Date of Service: 04/18/25 MR#: [id number] Acct: [id number] Name: KM STRANGE Rep #: [id number] : 1995 Provider: CARLA aguiar Age/Sex: 29/F Location: [facility] Status: Signed Intake Vital Signs 02/22/25 09:25 03/19/25 15:12 04/18/25 08:21 Height 5 ft 5 ft 5 ft Weight: 146 lb 9 oz BMI 28.6 BP 110/70 Intake Visit Reasons: 21 WK OB Chief Complaint: 22 Week OB Mallet Cutter Required: No Is patient in pain?: No [...] status: employed 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 -???-???-???-???- (more content not included)... Normal [facility] Urine Cultureon 03-22-2025 URC Below infection leve l. GPC Poss Enterococcus sp [place] Count 1000-10,000 Normal [facility] Comment on above: Performed By: #### L 509.4006, L100.0100, L3890.6301, L7000.1800, BTS, M100.2200, L3890.6102, L3890.6006, L509.8002 #### [facility] [address] [place], [place], [address] Laboratory - Chemistry and C hemistry - challengeOrdered By: Kelsey Harrell on 03-19-2025 Bilirubin Ql (U) Negative [facility] Glucose Ql (U) Negative [facility] Ketones Ql (U) Negative [facility] pH (U) 6.5 [pH] [facility] Specific gravity (U) [Rel density] 1.010 [facility] Urobilinogen (U) [Mass/Vol] Negative [facility] - Hematology and Cell countsOrdered By: Kelsey Harrell on 03-19-2025 Hemoglobin Ql (U) Negative [facility] - Specimen inform ationOrdered By: Kelsey Harrell on 03-19-2025 Clarity (U) Clear [facility] Color (U) Yellow [facility] - UrinalysisOrder ed By: Kelsey Harrell on 03-19-2025 Nitrite Ql (U) Negative [facility] Protein Ql (U) Negative [facility] No Panel InformationOrdered By: Kelsey Harrell on 03-19-2025 Urine Leukocytes Negatve [facility] Urine Non-Hemolyzed Blood [facility] Lab Manager Office Visit Reporton 03-19-2025 Lab Manager Office Visit Report [facility] [address], [address] [place] [address] OFFICE VISIT Date of Service: 03/19/25 MR#: [id number] Acct: [id number] Name: KM STRANGE Rep #: [id number] : 1995 Provider: SHI Luther ams Age/Sex: 29/F Location: [facility] Status: Signed Intake Vital Signs 01/26/25 13:35 02/22/25 09:25 03/19/25 15:12 Height 5 ft 5 ft 5 ft Weight: 142 lb 6 oz BMI 27.8 BP 103/70 Intake Visit Reasons: 17wk ob Chief Complaint: 17wk OB Mallet Cutter Required: No Is patient in pain?: No [...] status: employed 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 -???-???-???-???-???-??? - SM- no vb lynne hartley discussed PFPT to help with pelvic floor dysfunction 03/19/25 -???-???-???-???-???-??? -???-???-???-???-???-??? - 16w 3d 142 lb 6 oz 103/70 Negative -???-???-???-???-?? (more content not included)... Normal [facility] Urine cultureOrdered By: Victor Manuel Harrell on 03-19-2025 Bacteria identified Cx Nom (U) GPC Poss Enterococcus sp Abnormal [facility] - Chemistry and C hemistry - challengeOrdered By: Marcie Santana on 02-22-2025 Glucose Ql (U) Negative [facility] - UrinalysisOrder ed By: Marcie Santana on 02-22-2025 Protein Ql (U) Negative [facility] Lab Manager Office Visit Reporton 02-22-2025 Lab Manager Office Visit Report [facility] [address], [address] [place] [address] OFFICE VISIT Date of Service: 02/22/25 MR#: [id number] Acct: [id number] Name: KM STRANGE Rep #: [id number] : 1995 Provider: Dr. 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 Normal [facility] Inital Evaluation (1) - PTon 02-20-2025 Inital Evaluation (1) - PT [facility] Physical Therapy [facility] [place] [address] / REHABILITATION SERVICES INITIAL EVALUATION MR#: [id number] Acct: [id number] Name: KM STRANGE Rep #: [id number] : 1995 29 From: Felicity Allan Referring Dr.: Apple Browne CNM Status: [facility] Insurance: [facility] SELF PAY INSURANCE Patient's Visit Information Visit [...] pelvic floor exam once approved by her FIELD MARKETING DIRECTOR. She does have some lumbar dysfunction with [...] was seeing a pelvic floor therapist in [place]. She wasn't able to go weekly due [...] of her pain with intercourse was internal. [place] pain lately 7 -03/11. She feels like she urinating once an hour. She hasn't been great about drinking, as she gets anxious about finding a bathroom. She had to sit down with an admin at work to discuss the fact that she has to urinate so often. 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 She states the bladder has been [...] after getting up after sitting a while. 8-10. Pain doesn't radiate down the leg. She [...] Mild pulling (more content not included)... Normal [facility] Chlamydia/GC SHANAE aptimaon CHLAMY,NUC ACID Negative Normal Negative [facility] Comment on above: Performed By: #### L 509.4006, L100.0100, L3890.6301, L7000.1800, BTS, M100.2200, L3890.6102, L3890.6006, L509.8002 #### [facility] [address] [place], [address] GC BY NUC ACID Negative Normal Negative [facility] Comment on above: Result Comment: Perf ormed at: =G - [facility] [address]Sh[address], [place] [id number] [place]: Taylor Kim MD, Phone: [phone] Performed By: #### L 509.4006, L100.0100, L3890.6301, L7000.1800, BTS, M100.2200, L3890.6102, L3890.6006, L509.8002 #### [facility] [address] [place], [place], [id number] Urine Cultureon 01-27-2025 URC Culture exhibits no growth. Normal [facility] Comment on above: Performed By: #### L 509.4006, L100.0100, L3890.6301, L7000.1800, BTS, M100.2200, L3890.6102, L3890.6006, L509.8002 #### [facility] [address] [place], [place], [id number] Absolute lymphocyte countOrd ered By: Apple Browne on 01-26-2025 Lymphocytes Auto (Unsp spec) [#/Vol] 1.83 10*3/uL 0.83-4.51 [facility] Absolute neutrophil countOrd ered By: Apple Browne on 01-26-2025 Neutrophils (Bld) [#/Vol] 5.2 10*3/uL 2.0-7.7 [facility] Automated lymphocyte count a s percentage of total leukocytesOrdered By: Apple Browne on 01-26-2025 Lymphocytes/100 WBC Auto (Unsp spec) 23.4 % 19-41 [facility] Basophil percentageOrdered B y: Apple Browne on 01-26-2025 Basophils/100 WBC (Bld) 0.4 % 0-1 [facility] CBC W/Diff, Automatedon 01-01 Absolute Lymph 1.83 X10 3/uL Normal 0.83-4.51 [facility] Comment on above: Performed By: #### L 509.4006, L100.0100, L3890.6301, L7000.1800, BTS, M100.2200, L3890.6102, L3890.6006, L509.8002 #### [facility] [address] [place], [address] Absolute Neut 5.2 X10 3/uL Normal 2.0-7.7 [facility] Comment on above: Performed By: #### L 509.4006, L100.0100, L3890.6301, L7000.1800, BTS, M100.2200, L3890.6102, L3890.6006, L509.8002 #### [facility] [address] [place], [address] Basophils/100 WBC (Bld) 0.4 % Normal 0-1 [facility] Comment on above: Performed By: #### L 509.4006, L100.0100, L3890.6301, L7000.1800, BTS, M100.2200, L3890.6102, L3890.6006, L509.8002 #### [facility] [address] [place], [address] Eosinophils/100 WBC (Bld) 3.2 % Normal 0-5 [facility] Comment on above: Performed By: #### L 509.4006, L100.0100, L3890.6301, L7000.1800, BTS, M100.2200, L3890.6102, L3890.6006, L509.8002 #### [facility] [address] [place], [address] Erythrocyte distribution width (RBC) [Ratio] 11.8 % Normal 11.6-14.6 [facility] Comment on above: Performed By: #### L 509.4006, L100.0100, L3890.6301, L7000.1800, BTS, M100.2200, L3890.6102, L3890.6006, L509.8002 #### [facility] [address] [place], [address] Hematocrit (Bld) [Volume fraction] 37.4 % Normal 37-47 [facility] Comment on above: Performed By: #### L 509.4006, L100.0100, L3890.6301, L7000.1800, BTS, M100.2200, L3890.6102, L3890.6006, L509.8002 #### [facility] [address] [place], [address] Hemoglobin (Bld) [Mass/Vol] 13.2 g/dL Normal 12.0-15.0 [facility] Comment on above: Performed By: #### L 509.4006, L100.0100, L3890.6301, L7000.1800, BTS, M100.2200, L3890.6102, L3890.6006, L509.8002 #### [facility] [address] [place], [address] IG% 0.400 Normal 0.0-0.9 [facility] Comment on above: Result Comment: IG% - Immature Granulocytes (promyelocytes, myelocytes and metamyelocytes) > 1% indicates that a LEFT SHIFT is Present. Performed By: #### L 509.4006, L100.0100, L3890.6301, L7000.1800, BTS, M100.2200, L3890.6102, L3890.6006, L509.8002 #### [facility] [address] [place], [address] Lymphocytes/100 WBC (Bld) 23.4 % Normal 19-41 [facility] Comment on above: Performed By: #### L 509.4006, L100.0100, L3890.6301, L7000.1800, BTS, M100.2200, L3890.6102, L3890.6006, L509.8002 #### [facility] [address] [place], [address] MCH (RBC) [Entitic mass] 31.1 pg Normal 27.0-32.0 [facility] Comment on above: Performed By: #### L 509.4006, L100.0100, L3890.6301, L7000.1800, BTS, M100.2200, L3890.6102, L3890.6006, L509.8002 #### [facility] [address] [place], [address] MCHC (RBC) [Mass/Vol] 35.3 g/dL Normal 32-36 [facility] Comment on above: Performed By: #### L 509.4006, L100.0100, L3890.6301, L7000.1800, BTS, M100.2200, L3890.6102, L3890.6006, L509.8002 #### [facility] [address] [place], [address] MCV (RBC) [Entitic vol] 88.2 fL Normal 81-99 [facility] Comment on above: Performed By: #### L 509.4006, L100.0100, L3890.6301, L7000.1800, BTS, M100.2200, L3890.6102, L3890.6006, L509.8002 #### [facility] [address] [place], [address] Monocytes/100 WBC (Bld) 6.9 % Normal 0-10 [facility] Comment on above: Performed By: #### L 509.4006, L100.0100, L3890.6301, L7000.1800, BTS, M100.2200, L3890.6102, L3890.6006, L509.8002 #### [facility] [address] [place], [address] Neutrophils/100 WBC (Bld) 65.7 % Normal 47-70 [facility] Comment on above: Performed By: #### L 509.4006, L100.0100, L3890.6301, L7000.1800, BTS, M100.2200, L3890.6102, L3890.6006, L509.8002 #### [facility] [address] [place], [address] Nucleated RBC (Bld) [#/Vol] 0 10*3/uL Normal 0-5 [facility] Comment on above: Performed By: #### L 509.4006, L100.0100, L3890.6301, L7000.1800, BTS, M100.2200, L3890.6102, L3890.6006, L509.8002 #### [facility] [address] [place], [address] Platelet mean volume (Bld) [Entitic vol] 10.6 fL Normal 6.2-12.0 [facility] Comment on above: Performed By: #### L 509.4006, L100.0100, L3890.6301, L7000.1800, BTS, M100.2200, L3890.6102, L3890.6006, L509.8002 #### [facility] [address] [place], [address] Platelets (Bld) [#/Vol] 213 10*3/uL Normal 150-450 [facility] Comment on above: Performed By: #### L 509.4006, L100.0100, L3890.6301, L7000.1800, BTS, M100.2200, L3890.6102, L3890.6006, L509.8002 #### [facility] [address] [place], [address] RBC (Bld) [#/Vol] 4.24 10*6/uL Normal 4.2-5.4 [facility] Comment on above: Performed By: #### L 509.4006, L100.0100, L3890.6301, L7000.1800, BTS, M100.2200, L3890.6102, L3890.6006, L509.8002 #### [facility] [address] [place], [address] RDW SD 38.0 fl Normal 35.1-43.9 [facility] Comment on above: Performed By: #### L 509.4006, L100.0100, L3890.6301, L7000.1800, BTS, M100.2200, L3890.6102, L3890.6006, L509.8002 #### [facility] [address] [place], [address] WBC (Bld) [#/Vol] 7.8 10*3/uL Normal 4.4-11.0 [facility] Comment on above: Performed By: #### L 509.4006, L100.0100, L3890.6301, L7000.1800, BTS, M100.2200, L3890.6102, L3890.6006, L509.8002 #### [facility] [address] [place], [address] Chlamydia trachomatis rRNA d etection by probe and target amplification methodOrdered By: Apple Browne on 01-26-2025 C. trachomatis rRNA SHANAE+probe Ql (Unsp spec) Negative Negative [facility] Eosinophil percentageOrdered By: Apple Browne on 01-26-2025 Eosinophils/100 WBC (Bld) 3.2 % 0-5 [facility] Erythrocyte distribution wid th ratioOrdered By: Apple Browne on 01-26-2025 Erythrocyte distribution width (RBC) [Ratio] 11.8 % 11.6-14.6 [facility] Erythrocyte distribution wid th standard deviationOrdered By: Apple Browne on 01-26-2025 Erythrocyte distribution width (RBC) [Ratio] 38.0 fl 35.1-43.9 [facility] HIVon 01-26-2025 HIV Non-Reactive Normal Nonreactive [facility] Comment on above: Result Comment: Non- Reactive Reactive Repeatedly reactive samples must be confirmed according to CDC recommended confirmatory algorithms. The subresults for either HIVAG or AHIV can be used as an aid in the selection of the confirmation algorithm for reactive samples. Send out specimens with Reactive results to [facility] for confirmation. Order the HIV antibody detection and differentiation: lc#[id number] Performed By: #### L 509.4006, L100.0100, L3890.6301, L7000.1800, BTS, M100.2200, L3890.6102, L3890.6006, L509.8002 #### [facility] [address] [place], [address] Hematocrit Auto (Bld) [Volum e fraction]Ordered By: Apple Browne on 01-26-2025 Hematocrit (Bld) [Volume fraction] 37.4 % 37-47 [facility] Hemoglobin measurementOrdere d By: Apple Browne on 01-26-2025 Hemoglobin (Bld) [Mass/Vol] 13.2 g/dL 12.0-15.0 [facility] Hepatitis C Antibodyon 01-26 Hepatitis C Ab Non-Reactive Normal Nonreactive [facility] Comment on above: Result Comment: Reac tive: Presumptive evidence of antibodies to HCV. Follow CDC recommendations for supplemental testing. Non-Reactive: Antibodies to HCV were not detected; does not exclude the possibility of exposure to HCV Reactive Results are presumptive evidence of antibodies to HCV. Follow CDC recommendations for supplemental testing. Order confirmation testing: HCV Quant by PCR testing - HCVPCR #[id number] Non Reactive: < 0.8 Equivocal: >/= 0.8 to < 1.0 Reactive: >/= 1.0 The CDC requires that a reactive/equivocal HCV antibody result be sent out for confirmation. HCV Quant by PCR testing. Performed By: #### L 509.4006, L100.0100, L3890.6301, L7000.1800, BTS, M100.2200, L3890.6102, L3890.6006, L509.8002 #### [facility] [address] [place], [place], [id number] Immature granulocytes/100 WB C Auto (Bld)Ordered By: Apple Browne on 01-26-2025 Immature granulocytes/100 WBC (Bld) 0.400 % 0.0-0.9 [facility] Comment on above: IG% - Immature Granu locytes (promyelocytes, myelocytes and metamyelocytes) > 1% indicates that a LEFT SHIFT is Present. L3890.6102on 01-26-2025 HEP B Surf Ag Non-Reactive Normal Nonreactive [facility] Comment on above: Result Comment: Reac tive: Presumptive evidence of HBV. Repeatedly reactive samples must be confirmed using a neutralization test ([employer] HBsAg Confirmatory Test) Non-Reactive: HBsAg not detected; does not exclude the possibility of exposure to HBV Performed By: #### L 509.4006, L100.0100, L3890.6301, L7000.1800, BTS, M100.2200, L3890.6102, L3890.6006, L509.8002 #### [facility] [address] [place], [place], [id number] L509.4006on 01-26-2025 Rubella IgG REAC Normal Nonreactive [facility] Comment on above: Result Comment: Anti body Result: Interpretation Non-Reactive: Non-Immune Reactive: Immune The following results were obtained with the [employer] Rubella IgG assay. Results from assays of other manufacturers cannot be used interchangeably. Performed By: #### L 509.4006, L100.0100, L3890.6301, L7000.1800, BTS, M100.2200, L3890.6102, L3890.6006, L509.8002 #### [facility] [address] [place], [place], [id number] Laboratory - Microbiology an d Antimicrobial susceptibilityOrdered By: Apple Browne on 01-26-2025 HBV surface Ag Ql (S) Non-Reactive Nonreactive [facility] Comment on above: Reactive: Presumptiv e evidence of HBV. Repeatedly reactive samples must be confirmed using a neutralization test ([employer] HBsAg Confirmatory Test)Non-Reactive: HBsAg not detected; does not exclude the possibility of exposure to HBV MCV (mean corpuscular volume ) determinationOrdered By: Apple Browne on 01-26-2025 MCV (RBC) [Entitic vol] 88.2 fL 81-99 [facility] Mean corpuscular hemoglobin (MCH) determinationOrdered By: Apple Browne on 01-26-2025 MCH (RBC) [Entitic mass] 31.1 pg 27.0-32.0 [facility] Mean corpuscular hemoglobin concentration (MCHC) determinationOrdered By: Apple Browne on 01-26-2025 MCHC (RBC) [Mass/Vol] 35.3 g/dL 32-36 [facility] Mean platelet volume determi nationOrdered By: Apple Browne on 01-26-2025 Platelet mean volume (Bld) [Entitic vol] 10.6 fL 6.2-12.0 [facility] Monocyte percentageOrdered B y: Apple Browne on 01-26-2025 Monocytes/100 WBC (Bld) 6.9 % 0-10 [facility] Neisseria gonorrhoeae nuclei c acid detection by amplified probe techniqueOrdered By: Apple Browne on 01-26-2025 N. gonorrhoeae DNA SHANAE+probe Ql (Unsp spec) Negative Negative [facility] Comment on above: Performed at: =[address] [id number] Director: Taylor Kim MD, Phone: [phone] Neutrophil percentageOrdered By: Apple Browne on 01-26-2025 Neutrophils/100 WBC (Bld) 65.7 % 47-70 [facility] No Panel InformationOrdered By: Apple Browne on 01-26-2025 HIV (1&2) Antibody Non-Reactive Nonreactive [facility] Comment on above: Non-ReactiveReactive Repeatedly reactive samples must be confirmed according to CDC recommended confirmatory algorithms. The subresults for either HIVAG or AHIV can be used as an aid in the selection of the confirmation algorithm for reactive samples.Send out specimens with Reactive results to [facility] for confirmation.Order the HIV antibody detection and differentiation: #[id number] Nucleated red blood cell per centageOrdered By: Apple Browne on 01-26-2025 Nucleated RBC/100 WBC (Bld) [Ratio] 0 % 0-5 [facility] Lab Manager Office Visit Reporton 01-26-2025 Lab Manager Office Visit Report [facility] [address] [place] [address], [address] [place] [address] OFFICE VISIT Date of Service: 01/26/25 MR#: [id number] Acct: [id number] Name: KM STRANGE Rep #: [id number] : 1995 Provider: SHI price Age/Sex: 29/F Location[facility] Status: Signed Intake Vital Signs 11/05/24 15:17 01/12/25 09:14 01/26/25 13:35 Height 5 ft 5 ft 5 ft Weight: 128 lb 8 oz BMI 25.0 BP 106/74 Intake Visit Reasons: *EST* NOB LMP 11/24, ERIN 08/31 Chief Complaint: New ob Mallet Cutter Required: No Is patient in pain?: No [...] 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 ) and Negative: Diabetes, Hypertension, Heart disease, Auto-immune disorder, Kidney disease/UTI, Neurologic/epilepsy, Psychiatric, Depression/ depression, Hepatit (more content not included)... Normal [facility] Platelet countOrdered By: Jada Browne on 01-26-2025 Platelets (Bld) [#/Vol] 213 10*3/uL 150-450 [facility] RBC Auto (Bld) [#/Vol]Ordere d By: Apple Browne on 01-26-2025 RBC (Bld) [#/Vol] 4.24 10*6/uL 4.2-5.4 [facility] Syphilis Antibodieson 2024 Syphilis Abs Non-Reactive Normal Nonreactive [facility] Comment on above: Performed By: #### L 509.4006, L100.0100, L3890.6301, L7000.1800, BTS, M100.2200, L3890.6102, L3890.6006, L509.8002 #### [facility] [address] [place], [address] Type AND Screenon 01-26-2025 ABO and Rh group Nom (Bld) Blood group A Rh(D) positive Normal [facility] Comment on above: Order Comment: PN Performed By: #### L 509.4006, L100.0100, L3890.6301, L7000.1800, BTS, M100.2200, L3890.6102, L3890.6006, L509.8002 #### [facility] [address] [place], [place], [id number] Urine cultureOrdered By: Sarah Browne on 01-26-2025 Bacteria identified Cx Nom (U) Culture exhibits no growth. [facility] White blood cell (WBC) count Ordered By: Apple Browne on 01-26-2025 WBC (Bld) [#/Vol] 7.8 10*3/uL 4.4-11.0 [facility] - Chemistry and C hemistry - challengeOrdered By: Kirsten Herrmann on 01-12-2025 HCG ( test) Ql (U) Positive [facility] Office Visit Reporton 2024 Office Visit Report [facility] [address] [place] [address] OFFICE VISIT Date of Service: 01/12/25 MR#: [id number] Acct: [id number] Patient: KM STRANGE Rep #: [id number] : 1995 Provider: Dr. Kirsten Mason DO Age/Sex: 29/F Location: [facility] [place] Status: Signed Intake Vital Signs 11/05/24 15:17 [...] No 01/12/25 2312 Date Kirsten Aragon DO [facility] Signature: Date (if applicable) CC: Normal [facility] CBC AND ELECTRONIC DIFFon Abs Baso Auto < Normal 0.00-0.[address] [facility] Comment on above: Performed By: #### L AB980 #### [facility] (DEFAULT) [address] [place] [address] Basophils/100 WBC (Bld) 0.5 % Normal [facility] Comment on above: Performed By: #### L AB980 #### [facility] (DEFAULT) [address] [place] [address] DIFF STATUS Electronic Differential Normal [facility] Comment on above: Performed By: #### L AB980 #### [facility] (DEFAULT) [address] [place] [address] Eosinophils (Bld) [#/Vol] 0.12 10*3/uL Normal 0.00-0.[address] [facility] Comment on above: Performed By: #### L AB980 #### [facility] (DEFAULT) [address] [place] [address] Eosinophils/100 WBC (Bld) 1.8 % Normal [facility] Comment on above: Performed By: #### L AB980 #### [facility] (DEFAULT) [address] [place] [address] Hematocrit (Bld) [Volume fraction] 37.5 % Normal 34.9-44.[address] [facility] Comment on above: Performed By: #### L AB980 #### [facility] (DEFAULT) [address] [place] [address] Hemoglobin (Bld) [Mass/Vol] 13.2 g/dL Normal 11.4-15.[address] [facility] Comment on above: Performed By: #### L AB980 #### [facility] (DEFAULT) [address] [place] [address] Immature Grans % 0.2 % Normal [facility] Comment on above: Performed By: #### L AB980 #### [facility] (DEFAULT) [address] [place] [address] Immature Grans Absolute < Normal <=0.[address] [facility] Comment on above: Performed By: #### L AB980 #### [facility] (DEFAULT) [address] [place] [address] Lymphocytes (Bld) [#/Vol] 2.17 10*3/uL Normal 1.16-3.[address] [facility] Comment on above: Performed By: #### L AB980 #### [facility] (DEFAULT) [address] [address] Lymphocytes/100 WBC (Bld) 32.8 % Normal [facility] Comment on above: Performed By: #### L AB980 #### [facility] (DEFAULT) [address] [place] [address] MCV (RBC) [Entitic vol] 86.0 fL Normal 79.6-97.[address] [facility] Comment on above: Performed By: #### L AB980 #### [facility] (DEFAULT) [address] [address] Mean Cell Hgb 30.3 pg Normal 25.9-33.[address] [facility] Comment on above: Performed By: #### L AB980 #### [facility] (DEFAULT) [address] [address] Mean Cell Hgb Conc 35.2 g/dL Normal 31.4-35.9 [facility] Comment on above: Performed By: #### L AB980 #### [facility] (DEFAULT) [address] [address] Monocytes (Bld) [#/Vol] 0.39 10*3/uL Normal 0.22-0.[address] [facility] Comment on above: Performed By: #### L AB980 #### [facility] (DEFAULT) [address] [address] Monocytes/100 WBC (Bld) 5.9 % Normal [facility] Comment on above: Performed By: #### L AB980 #### [facility] (DEFAULT) [address] [address] Nucleated RBC 0.0 /100 WBC Normal <=0.2 [facility] Comment on above: Performed By: #### L AB980 #### [facility] (DEFAULT) [address] [place] [address] Platelet mean volume (Bld) [Entitic vol] 11.0 fL Normal 8.5-12.[address] [facility] Comment on above: Performed By: #### L AB980 #### [facility] (DEFAULT) [address] [place] [address] Platelets (Bld) [#/Vol] 181 10*3/uL Normal 150-[address] [facility] Comment on above: Performed By: #### L AB980 #### [facility] (DEFAULT) [address] [place] [address] RBC (Bld) [#/Vol] 4.36 10*6/uL Normal 3.91-5.[address] [facility] Comment on above: Performed By: #### L AB980 #### [facility] (DEFAULT) [address] [place] [address] RBC Distribution 11.4 % Normal 10.8-14.9 [facility] Comment on above: Performed By: #### L AB980 #### [facility] (DEFAULT) [address] [place] [address] Segs + Bands Auto 58.8 % Normal [facility] Comment on above: Performed By: #### L AB980 #### [facility] (DEFAULT) [address] [place] [address] Segs + Bands,Absolute Auto 3.90 K/uL Normal 1.64-7.[address] [facility] Comment on above: Performed By: #### L AB980 #### [facility] (DEFAULT) [address] [place] [address] WBC (Bld) [#/Vol] 6.62 10*3/uL Normal 3.99-11.[address] [facility] Comment on above: Performed By: #### L AB980 #### [facility] (DEFAULT) [address] [place] [address] FUUZAAYHW-NUPKS-3,3-GALACTOS E IGEon 01-04-2025 Bmcislezf-flfbq-3,3-ga lactose, IgE <0.10 Normal <0.[address] [facility] Comment on above: Result Comment: Clas s 0 (Negative <0.10) Test Performed by: [place] [address] Loftsman: Aliyah Elmore Ph.D.; CLIA# [id number] Performed By: #### Y FGA13 #### [facility] (DEFAULT) [address] [address] IMMUNOGLOBULIN IGEon 025 Total IgE 52.4 IU/mL Normal <=165.[address] [facility] Comment on above: Performed By: #### I GE #### [facility] (DEFAULT) [address] [address] MAST CELL TRYPTASEon 025 Tryptase 3.2 ng/mL Normal <11.[address] [facility] Comment on above: Result Comment: Test Performed by: [place] [address] Loftsman: Aliyah Elmore Ph.D.; CLIA# [id number] Performed By: #### Y MAST #### [facility] (DEFAULT) [address] [address] Measure post void residualon 01-02-2025 PVR=80 [facility] Work Phone: [phone] [facility] Work Phone: [phone] POCT UA Automated manually r esultedon 01-02-2025 Glucose Test strip (U) [Mass/Vol] Negative NEGATIVE mg/dl [facility] Work Phone: [phone] Hemoglobin Ql (U) Negative NEGATIVE [facility] Work Phone: [phone] Leukocyte esterase Test strip Ql (U) Negative NEGATIVE [facility] Work Phone: [phone] Nitrite Ql (U) Negative NEGATIVE [facility] Work Phone: [phone] pH (U) 6.5 [pH] No Reference Range Established [facility] Work Phone: [phone] POC Bilirubin, Urine Negative NEGATIVE [facility]: POC Ketones, Urine Negative NEGATIVE mg/dl [facility] Work Phone: [phone] POC Protein, Urine Negative NEGATIVE mg/dl [facility] Work Phone: [phone] POC Specific [place], Urine 1.010 1.005 - 1.035 [facility] Work Phone: POC Urobilinogen, Urine 0.2 0.2, 1.0 EU/DL [facility] Work Phone: [facility] Work Phone: URINALYSIS REFLEXon 12-31-19 25 Appearance (U) CLEAR Normal CLEAR [facility] Comment on above: Order Comment: FASTI NG:UNKNOWN FASTING: UNKNOWN Performed By: #### 7 909 #### [facility] [place] [address] Stain Wiper: Jean Pierre Whitehead MD Bilirubin Ql (U) Negative Normal NEGATIVE [facility] Comment on above: Order Comment: FASTI NG:UNKNOWN FASTING: UNKNOWN Performed By: #### 7 909 #### [facility] [place] [address] Stain Wiper: Jean Pierre Whitehead MD Color (U) YELLOW Normal YELLOW [facility] Comment on above: Order Comment: FASTI NG:UNKNOWN FASTING: UNKNOWN Performed By: #### 7 909 #### [facility] [place] [address] Stain Wiper: Jean Pierre Whitehead MD Glucose Ql (U) Negative Normal NEGATIVE [facility] Comment on above: Order Comment: FASTI NG:UNKNOWN FASTING: UNKNOWN Performed By: #### 7 909 #### [facility] [place] [address] Stain Wiper: Jean Pierre Whitehead MD Ketones Ql (U) Negative Normal NEGATIVE [facility] Comment on above: Order Comment: FASTI NG:UNKNOWN FASTING: UNKNOWN Performed By: #### 7 909 #### [facility] [place] [address] Stain Wiper: Jean Pierre Whitehead MD Leukocyte esterase Test strip Ql (U) Negative Normal NEGATIVE [facility] Comment on above: Order Comment: FASTI NG:UNKNOWN FASTING: UNKNOWN Performed By: #### 7 909 #### [facility] [place] [address] Stain Wiper: Jean Pierre Whitehead MD Nitrite Ql (U) Negative Normal NEGATIVE [facility] Comment on above: Order Comment: FASTI NG:UNKNOWN FASTING: UNKNOWN Performed By: #### 7 909 #### [facility] [place] [address] Stain Wiper: Jean Pierre Whitehead MD OCCULT BLOOD Negative Normal NEGATIVE [facility] Comment on above: Order Comment: FASTI NG:UNKNOWN FASTING: UNKNOWN Performed By: #### 7 909 #### [facility] [place] [address] Stain Wiper: Jean Pierre Whitehead MD pH (U) 7.5 [pH] Normal 5.0-8.0 [facility] Comment on above: Order Comment: FASTI NG:UNKNOWN FASTING: UNKNOWN Performed By: #### 7 909 #### [facility] [place] [address] Stain Wiper: Jean Pierre Whitehead MD Protein Ql (U) Negative Normal NEGATIVE [facility] Comment on above: Order Comment: FASTI NG:UNKNOWN FASTING: UNKNOWN Performed By: #### 7 909 #### [facility] [place] [address] Stain Wiper: Jean Pierre Whitehead MD Specific gravity (U) [Rel density] 1.005 Normal 1.001-1.035 [facility] Comment on above: Order Comment: FASTI NG:UNKNOWN FASTING: UNKNOWN Performed By: #### 7 909 #### [facility] [place] [address] Stain Wiper: Jean Pierre Whitehead MD Choriogonadotropin.beta subu niton 12-26-2024 [place]n 3103 m[IU]/mL High <5 Un [facility] Comment on above: Order Comment: Total HCG measurement is performed using the [employer] [place] Access Immunoassay which detects intact HCG and free beta HCG subunit. This test is not indicated for use as a tumor marker. HCG testing is performed using a different test methodology at [facility] than other [facility]. Direct result comparison should only be [...] #### 2 1198-7 #### JORGE L DACOSTA ([id number]) [facility] ([facility]) [address] [place] [address] Choriogonadotropin.beta subu niton 12-22-2024 HCG.beta subunit Qn 696 m[IU]/mL High <5 [facility] Comment on above: Order Comment: Total HCG measurement is performed using the Gu[employer] [place] Access Immunoassay which detects intact HCG and free beta HCG subunit. This test is not indicated for use as a tumor marker. HCG testing is performed using a different test methodology at [facility] than other [facility]. Direct result comparison should only be [...] #### 2 1198-7 #### JORGE L DACOSTA ([id number]) [facility] ([facility]) [address] [place] [address] ED Prov Noteon 11-22-2024 ED Prov Note [...] are negative. PAST HISTORY Past Medical History: @[facility] Past Surgical History: has a past surgical [...] for 1 dose . 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 Allergic reaction, initial encounter (Please note that portions of this note were completed with a voice recognition program. Efforts were made to edit the dictations but occasionally words are mis-transcribed.) Ryan Guerra MD 11/22/24 1214 AUTHENTICATED BY RYAN GUERRA, ON 11/22/2024 12:14:40 Normal [facility] POC , URINE - RALSo n 11-22-2024 Beta HCG ( test) Ql (U) Negative Normal Negative [facility] Comment on above: Order Comment: Negat ernie: Dilute urine specimens, as indicated by a low specific gravity (<1.010) may not contain representitive levels of hCG. If is still suspected, a serum test or repeat urine test using a first morning urine specimen should be considered. POC URINALYSIS DIPSTICK,AUTO - RALSon 11-22-2024 POC BILIRUBIN, URINE Negative Normal Negative [facility] POC BLOOD, URINE Negative Normal Negative [facility] POC GLUCOSE, URINE Negative Normal Negative [facility] POC KETONES, URINE Negative Normal Negative [facility] POC LEUKOCYTE ESTERASE, URINE Negative Normal Negative [facility] POC NITRITE, URINE Negative Normal Negative [facility] POC PH, URINE 6.0 Normal 5.0-7.0 [facility] POC PROTEIN, URINE Negative Normal Negative [facility] POC SPECIFIC GRAVITY 1.010 Normal 1.005-1.025 [facility] POC UROBILINOGEN 0.2 mg/dL Normal < 2.0 [facility] Abdomen/Pelvis without Conto n 11-05-2024 Abdomen/Pelvis without Cont [facility] Imaging Services [address] [place] [id number] Abdomen/Pelvis without Cont MR#: [id number] Acct: [id number] Name: KM STRANGE Rep #: [id number] : 1995 F 29 From: Vic Dykes DO PCP: CARLA Plascencia Status: REG ER Study: Abdomen/Pelvis without Cont Date of Exam: 01/24 Exam# [id number] Ordering Dr: Daniel Schneider DO PROCEDURE: ABDOMEN/PELVIS [...] OR HYDRONEPHROSIS. NO ACUTE FINDINGS. [facility] CC: CARLA Doss; Dr. Daniel Schneider DO Mushroom Cutter: Signed Normal [facility] Absolute lymphocyte countOrd ered By: Daniel Schneider on 11-05-2024 Lymphocytes Auto (Unsp spec) [#/Vol] 1.08 10*3/uL 0.83-4.51 [facility] Absolute neutrophil countOrd ered By: Daniel Schneider on 11-05-2024 Neutrophils (Bld) [#/Vol] 1.8 10*3/uL Low 2.0-7.7 [facility] Anion gap in Serum or Plasma Ordered By: Daniel Schneider on 11-05-2024 Anion gap [Moles/Vol] 11 mmol/L 5-15 [facility] Automated lymphocyte count a s percentage of total leukocytesOrdered By: Daniel Schneider on 11-05-2024 Lymphocytes/100 WBC Auto (Unsp spec) 32.5 % 19-41 [facility] BUN/creatinine ratioOrdered By: Daniel Schneider on 11-05-2024 Urea nitrogen/Creatinine [Mass ratio] 16.4 mg/mg 10-20 [facility] Basophil percentageOrdered B y: Daniel Schneider on 11-05-2024 Basophils/100 WBC (Bld) 0.0 % 0-1 [facility] Bilirubin Test strip Ql (U)O rdered By: Daniel Schneider on 11-05-2024 Bilirubin Ql (U) Negative Negative [facility] Bilirubin, totalOrdered By: Daniel Schneider on 11-05-2024 Bilirubin [Mass/Vol] 0.27 mg/dL 0.00-1.30 [facility] CBC W/Diff, Automatedon 04-0 6-2024 Absolute Lymph 1.08 X10 3/uL Normal 0.83-4.51 [facility] Comment on above: Performed By: #### L 509.4006, L100.0100, L3890.6301, L7000.1800, BTS, M100.2200, L3890.6102, L3890.6006, L509.8002 #### [facility] [address] [place], [address] Absolute Neut 1.8 X10 3/uL Low 2.0-7.7 [facility] Comment on above: Performed By: #### L 509.4006, L100.0100, L3890.6301, L7000.1800, BTS, M100.2200, L3890.6102, L3890.6006, L509.8002 #### [facility] [address] [place], [address] Basophils/100 WBC (Bld) 0.0 % Normal 0-1 [facility] Comment on above: Performed By: #### L 509.4006, L100.0100, L3890.6301, L7000.1800, BTS, M100.2200, L3890.6102, L3890.6006, L509.8002 #### [facility] [address] [place], [address] Eosinophils/100 WBC (Bld) 1.8 % Normal 0-5 [facility] Comment on above: Performed By: #### L 509.4006, L100.0100, L3890.6301, L7000.1800, BTS, M100.2200, L3890.6102, L3890.6006, L509.8002 #### [facility] [address] [place], [address] Erythrocyte distribution width (RBC) [Ratio] 11.9 % Normal 11.6-14.6 [facility] Comment on above: Performed By: #### L 509.4006, L100.0100, L3890.6301, L7000.1800, BTS, M100.2200, L3890.6102, L3890.6006, L509.8002 #### [facility] [address] [place], [address] Hematocrit (Bld) [Volume fraction] 38.3 % Normal 37-47 [facility] Comment on above: Performed By: #### L 509.4006, L100.0100, L3890.6301, L7000.1800, BTS, M100.2200, L3890.6102, L3890.6006, L509.8002 #### [facility] [address] [place], [address] Hemoglobin (Bld) [Mass/Vol] 13.8 g/dL Normal 12.0-15.0 [facility] Comment on above: Performed By: #### L 509.4006, L100.0100, L3890.6301, L7000.1800, BTS, M100.2200, L3890.6102, L3890.6006, L509.8002 #### [facility] [address] [place], [address] IG% 0.600 Normal 0.0-0.9 [facility] Comment on above: Result Comment: IG% - Immature Granulocytes (promyelocytes, myelocytes and metamyelocytes) > 1% indicates that a LEFT SHIFT is Present. Performed By: #### L 509.4006, L100.0100, L3890.6301, L7000.1800, BTS, M100.2200, L3890.6102, L3890.6006, L509.8002 #### [facility] [address] [place], [address] Lymphocytes/100 WBC (Bld) 32.5 % Normal 19-41 [facility] Comment on above: Performed By: #### L 509.4006, L100.0100, L3890.6301, L7000.1800, BTS, M100.2200, L3890.6102, L3890.6006, L509.8002 #### [facility] [address] [place], [address] MCH (RBC) [Entitic mass] 30.9 pg Normal 27.0-32.0 [facility] Comment on above: Performed By: #### L 509.4006, L100.0100, L3890.6301, L7000.1800, BTS, M100.2200, L3890.6102, L3890.6006, L509.8002 #### [facility] [address] [place], [address] MCHC (RBC) [Mass/Vol] 36.0 g/dL Normal 32-36 [facility] Comment on above: Performed By: #### L 509.4006, L100.0100, L3890.6301, L7000.1800, BTS, M100.2200, L3890.6102, L3890.6006, L509.8002 #### [facility] [address] [place], [address] MCV (RBC) [Entitic vol] 85.7 fL Normal 81-99 [facility] Comment on above: Performed By: #### L 509.4006, L100.0100, L3890.6301, L7000.1800, BTS, M100.2200, L3890.6102, L3890.6006, L509.8002 #### [facility] [address] [place], [address] Monocytes/100 WBC (Bld) 9.9 % Normal 0-10 [facility] Comment on above: Performed By: #### L 509.4006, L100.0100, L3890.6301, L7000.1800, BTS, M100.2200, L3890.6102, L3890.6006, L509.8002 #### [facility] [address] [place], [address] Neutrophils/100 WBC (Bld) 55.2 % Normal 47-70 [facility] Comment on above: Performed By: #### L 509.4006, L100.0100, L3890.6301, L7000.1800, BTS, M100.2200, L3890.6102, L3890.6006, L509.8002 #### [facility] [address] [facility] [place], [address] Nucleated RBC (Bld) [#/Vol] 0 10*3/uL Normal 0-5 [facility] Comment on above: Performed By: #### L 509.4006, L100.0100, L3890.6301, L7000.1800, BTS, M100.2200, L3890.6102, L3890.6006, L509.8002 #### [facility] [address] [place], [address] Platelet mean volume (Bld) [Entitic vol] 10.4 fL Normal 6.2-12.0 [facility] Comment on above: Performed By: #### L 509.4006, L100.0100, L3890.6301, L7000.1800, BTS, M100.2200, L3890.6102, L3890.6006, L509.8002 #### [facility] [address] [place], [address] Platelets (Bld) [#/Vol] 160 10*3/uL Normal 150-450 [facility] Comment on above: Performed By: #### L 509.4006, L100.0100, L3890.6301, L7000.1800, BTS, M100.2200, L3890.6102, L3890.6006, L509.8002 #### [facility] [address] [place], [address] RBC (Bld) [#/Vol] 4.47 10*6/uL Normal 4.2-5.4 [facility] Comment on above: Performed By: #### L 509.4006, L100.0100, L3890.6301, L7000.1800, BTS, M100.2200, L3890.6102, L3890.6006, L509.8002 #### [facility] [address] [place], [address] RDW SD 36.7 fl Normal 35.1-43.9 [facility] Comment on above: Performed By: #### L 509.4006, L100.0100, L3890.6301, L7000.1800, BTS, M100.2200, L3890.6102, L3890.6006, L509.8002 #### [facility] [address] [place], [address] WBC (Bld) [#/Vol] 3.3 10*3/uL Low 4.4-11.0 [facility] Comment on above: Performed By: #### L 509.4006, L100.0100, L3890.6301, L7000.1800, BTS, M100.2200, L3890.6102, L3890.6006, L509.8002 #### [facility] [address] [place], [address] Carbon dioxide, total [Moles /volume] in Central venous bloodOrdered By: Daniel Schneider on 11-05-2024 CO2 [Moles/Vol] 22.1 mmol/L 21.0-32.0 [facility] Chloride assayOrdered By: Swetha Schneider on 11-05-2024 Chloride [Moles/Vol] 104 mmol/L 98-108 [facility] Comprehensive Metabolic Prof ilon 11-05-2024 Albumin [Mass/Vol] 4.3 g/dL Normal 3.5-5.0 [facility] Comment on above: Performed By: #### L 509.4006, L100.0100, L3890.6301, L7000.1800, BTS, M100.2200, L3890.6102, L3890.6006, L509.8002 #### [facility] [address] [place], [address] Albumin/Globulin [Mass ratio] 1.8 {ratio} Normal 0.9-2.4 [facility] Comment on above: Performed By: #### L 509.4006, L100.0100, L3890.6301, L7000.1800, BTS, M100.2200, L3890.6102, L3890.6006, L509.8002 #### [facility] [address] [place], [place], [id number] ALK PHOS 59 U/L Normal 35-104 [facility] Comment on above: Performed By: #### L 509.4006, L100.0100, L3890.6301, L7000.1800, BTS, M100.2200, L3890.6102, L3890.6006, L509.8002 #### [facility] [address] [place], [place], [id number] ALT [Catalytic activity/Vol] 15 U/L Normal <=34 [facility] Comment on above: Performed By: #### L 509.4006, L100.0100, L3890.6301, L7000.1800, BTS, M100.2200, L3890.6102, L3890.6006, L509.8002 #### [facility] [address] [place], [place], [id number] AST [Catalytic activity/Vol] 20 U/L Normal <=31 [facility] Comment on above: Performed By: #### L 509.4006, L100.0100, L3890.6301, L7000.1800, BTS, M100.2200, L3890.6102, L3890.6006, L509.8002 #### [facility] [address] [place], [address] Bilirubin [Mass/Vol] 0.27 mg/dL Normal 0.00-1.30 [facility] Comment on above: Performed By: #### L 509.4006, L100.0100, L3890.6301, L7000.1800, BTS, M100.2200, L3890.6102, L3890.6006, L509.8002 #### [facility] [address] [place], [address] BUN/CRE 16.4 RATIO Normal 10-20 [facility] Comment on above: Performed By: #### L 509.4006, L100.0100, L3890.6301, L7000.1800, BTS, M100.2200, L3890.6102, L3890.6006, L509.8002 #### [facility] [address] [place], [address] Calcium [Mass/Vol] 9.0 mg/dL Normal 7.6-11.0 [facility] Comment on above: Performed By: #### L 509.4006, L100.0100, L3890.6301, L7000.1800, BTS, M100.2200, L3890.6102, L3890.6006, L509.8002 #### [facility] [address] [place], [address] Chloride [Moles/Vol] 104 mmol/L Normal 98-108 [facility] Comment on above: Performed By: #### L 509.4006, L100.0100, L3890.6301, L7000.1800, BTS, M100.2200, L3890.6102, L3890.6006, L509.8002 #### [facility] [address] [place], [place], [id number] (413) CO2 [Moles/Vol] 22.1 mmol/L Normal 21.0-32.0 [facility] Comment on above: Performed By: #### L 509.4006, L100.0100, L3890.6301, L7000.1800, BTS, M100.2200, L3890.6102, L3890.6006, L509.8002 #### [facility] [address] [place], [place], [id number] (633) Creatinine [Mass/Vol] 0.68 mg/dL Low 0.70-1.20 [facility] Comment on above: Performed By: #### L 509.4006, L100.0100, L3890.6301, L7000.1800, BTS, M100.2200, L3890.6102, L3890.6006, L509.8002 #### [facility] [address] [place], [place], [id number] (313) ECRCL 97.03 ml/min Normal 50-250 [facility] Comment on above: Performed By: #### L 509.4006, L100.0100, L3890.6301, L7000.1800, BTS, M100.2200, L3890.6102, L3890.6006, L509.8002 #### [facility] [address] [place], [address] GAP 11 Normal 5-15 [facility] Comment on above: Performed By: #### L 509.4006, L100.0100, L3890.6301, L7000.1800, BTS, M100.2200, L3890.6102, L3890.6006, L509.8002 #### [facility] [address] [place], [address] GFR/1.73 sq M.predicted among non-blacks MDRD (S/P/Bld) [Vol rate/Area] 122 mL/min/{1.73_m2} Normal >60 [facility] Comment on above: Result Comment: mL/m in/1.73m2 CKD-EPI Creatinine Equation (2020) Performed By: #### L 509.4006, L100.0100, L3890.6301, L7000.1800, BTS, M100.2200, L3890.6102, L3890.6006, L509.8002 #### [facility] [address] [place], [address] Globulin (S) [Mass/Vol] 2.4 g/dL Normal 2.2-4.2 [facility] Comment on above: Performed By: #### L 509.4006, L100.0100, L3890.6301, L7000.1800, BTS, M100.2200, L3890.6102, L3890.6006, L509.8002 #### [facility] [address] [place], [address] Glucose [Mass/Vol] 80 mg/dL Normal 70-99 [facility] Comment on above: Performed By: #### L 509.4006, L100.0100, L3890.6301, L7000.1800, BTS, M100.2200, L3890.6102, L3890.6006, L509.8002 #### [facility] [address] [place], [address] Potassium [Moles/Vol] 3.6 mmol/L Normal 3.3-5.1 [facility] Comment on above: Performed By: #### L 509.4006, L100.0100, L3890.6301, L7000.1800, BTS, M100.2200, L3890.6102, L3890.6006, L509.8002 #### [facility] [address] [place], [address] Sodium [Moles/Vol] 138 mmol/L Normal 133-145 [facility] Comment on above: Performed By: #### L 509.4006, L100.0100, L3890.6301, L7000.1800, BTS, M100.2200, L3890.6102, L3890.6006, L509.8002 #### [facility] [address] [place], [address] T PROT 6.7 g/dL Normal 5.9-8.4 [facility] Comment on above: Performed By: #### L 509.4006, L100.0100, L3890.6301, L7000.1800, BTS, M100.2200, L3890.6102, L3890.6006, L509.8002 #### [facility] [address] [place], [address] Urea nitrogen [Mass/Vol] 11 mg/dL Normal 4-19 [facility] Comment on above: Performed By: #### L 509.4006, L100.0100, L3890.6301, L7000.1800, BTS, M100.2200, L3890.6102, L3890.6006, L509.8002 #### [facility] [address] [place], [address] Emergency Department Summary on 11-05-2024 Emergency Department Summary [facility] Medical Records Department [address] [place] [address] Emergency Department Summary 11/05/24 MR#: [id number] Acct: [id number] Name: KM STRANGE Rep #: [id number] : 1995 29 From: Daniel Schneider DO [...] Oxygen Delivery Method Room Air Room Air [facility] MDM Narrative Medical decision making narrative: HISTORY [...] History obtained from others: family Consults: none [facility] Narrative: Patient was hemodynamically stable, afebrile nontoxic-appearing. [...] Urine pregn (more content not included)... Normal [facility] Eosinophil percentageOrdered By: Daniel Schneider on 11-05-2024 Eosinophils/100 WBC (Bld) 1.8 % 0-5 [facility] Epithelial cells.squamous LM Ql (Urine sed)Ordered By: Daniel Schneider on 11-05-2024 Epithelial cells.squamous LM.HPF (Urine sed) [#/Area] 0 /[HPF] 5-10 [facility] Erythrocyte distribution wid th (RBC) [Ratio]Ordered By: Daniel Schneider on 11-05-2024 Erythrocyte distribution width (RBC) [Entitic vol] 36.7 fL 35.1-43.9 [facility] Erythrocyte distribution wid th ratioOrdered By: Daniel Schneider on 11-05-2024 Erythrocyte distribution width (RBC) [Ratio] 11.9 % 11.6-14.6 [facility] Erythrocyte distribution wid th standard deviationOrdered By: Daniel Schneider on 11-05-2024 Erythrocyte distribution width (RBC) [Ratio] 36.7 fl 35.1-43.9 [facility] Estimation of creatinine byron aranceOrdered By: Daniel Schneider on 11-05-2024 Estimated Creatinine Clearance Calc 97.03 ml/min 50-250 [facility] GFR/1.73 sq M.predicted ricardo g non-blacks MDRD (S/P/Bld) [Vol rate/Area]Ordered By: Daniel Schneider on 11-05-2024 Estimated GFR (MDRD) Non-Af Amer 122 >60 [facility] Comment on above: mL/min/1.73m2 CKD-EP I Creatinine Equation (2020) Glomerular filtration rate ( GFR) estimation/1.73 sq m using serum, plasma, or whole bOrdered By: Daniel Schneider on 11-05-2024 GFR/1.73 sq M.predicted among non-blacks MDRD (S/P/Bld) [Vol rate/Area] 122 mL/min/{1.73_m2} >60 [facility] Comment on above: mL/min/1.73m2 CKD-EP I Creatinine Equation (2020) Glucose Ql (U)Ordered By: christ Schneider on 11-05-2024 Urine Glucose (UA) Normal mg/dl Normal [facility] Hematocrit Auto (Bld) [Volum e fraction]Ordered By: Daniel Schneider on 11-05-2024 Hematocrit (Bld) [Volume fraction] 38.3 % 37-47 [facility] Hemoglobin measurementOrdere d By: Daniel Schneider on 11-05-2024 Hemoglobin (Bld) [Mass/Vol] 13.8 g/dL 12.0-15.0 [facility] Immature granulocytes/100 WB C Auto (Bld)Ordered By: Daniel Schneider on 11-05-2024 Immature granulocytes/100 WBC (Bld) 0.600 % 0.0-0.9 [facility] Comment on above: IG% - Immature Granu locytes (promyelocytes, myelocytes and metamyelocytes) > 1% indicates that a LEFT SHIFT is Present. Ketones Test strip Ql (U)Ord ered By: Daniel Schneider on 11-05-2024 Ketones Ql (U) Negative Negative [facility] - Chemistry and C hemistry - challengeOrdered By: Daniel Schneider on 11-05-2024 AST [Catalytic activity/Vol] 20 U/L <32 [facility] Lipaseon 11-05-2024 Lipase [Catalytic activity/Vol] 31 U/L Normal - [facility] Comment on above: Result Comment: Plea se note: LIPASE revised reference range effective 22. New Lipase methodology. Expected to produce lower values than the previous assay method. NEW Reference Range: 13 - 75 U/L Performed By: #### L 509.4006, L100.0100, L3890.6301, L7000.1800, BTS, M100.2200, L3890.6102, L3890.6006, L509.8002 #### [facility] [address] [place], [address] Lipase measurementOrdered By : Daniel Schneider on 11-05-2024 Lipase [Catalytic activity/Vol] 31 U/L - [facility] Comment on above: Please note:LIPASE r evised reference range effective 22. New Lipase methodology. Expected to produce lower values than the previous assay method. NEW Reference Range: 13 - 75 U/L Lymphocytes Auto (Unsp spec) [#/Vol]Ordered By: Daniel Schneider on 11-05-2024 Lymphocytes (Bld) [#/Vol] 1.08 10*3/uL 0.83-4.51 [facility] Lymphocytes/100 WBC Auto (Un sp spec)Ordered By: Daniel Schneider on 11-05-2024 Lymphocytes/100 WBC (Bld) 32.5 % 19-41 [facility] MCV (mean corpuscular volume ) determinationOrdered By: Daniel Schneider on 11-05-2024 MCV (RBC) [Entitic vol] 85.7 fL 81-99 [facility] Mean corpuscular hemoglobin (MCH) determinationOrdered By: Daniel Schneider on 11-05-2024 MCH (RBC) [Entitic mass] 30.9 pg 27.0-32.0 [facility] Mean corpuscular hemoglobin concentration (MCHC) determinationOrdered By: Daniel Schneider on 11-05-2024 MCHC (RBC) [Mass/Vol] 36.0 g/dL 32-36 [facility] Mean platelet volume determi nationOrdered By: Daniel Schneider on 11-05-2024 Platelet mean volume (Bld) [Entitic vol] 10.4 fL 6.2-12.0 [facility] Microscopic analysis of urin e for red blood cells (RBC)Ordered By: Daniel Schneider on 11-05-2024 Microscopic analysis of urine for red blood cells (RBC) 0 SEEN /hpf 0-5 [facility] Urine RBC 0 SEEN /hpf 0-5 [facility] Monocyte percentageOrdered B y: Daniel Schneider on 11-05-2024 Monocytes/100 WBC (Bld) 9.9 % 0-10 [facility] Mucus LM Ql (Urine sed)Order ed By: Daniel Schneider on 11-05-2024 Mucus Ql (Urine sed) 0 SEEN /hpf [facility] Neutrophil percentageOrdered By: Daniel Schneider on 11-05-2024 Neutrophils/100 WBC (Bld) 55.2 % 47-70 [facility] Nitrite Test strip Ql (U)Ord ered By: Daniel Schneider on 11-05-2024 Nitrite Ql (U) Negative Negative [facility] Nucleated red blood cell per centageOrdered By: Daniel Schneider on 11-05-2024 Nucleated RBC/100 WBC (Bld) [Ratio] 0 % 0-5 [facility] Platelet countOrdered By: Swetha Schneider on 11-05-2024 Platelets (Bld) [#/Vol] 160 10*3/uL 150-450 [facility] Potassium (Unsp spec) [Mass/ Vol]Ordered By: Daniel Schneider on 11-05-2024 Potassium [Moles/Vol] 3.6 mmol/L 3.3-5.1 [facility] Potassium measurement (mass/ volume)Ordered By: Daniel Schneider on 11-05-2024 Potassium (Unsp spec) [Mass/Vol] 3.6 mmol/L 3.3-5.1 [facility] ,Urineon 11-05-2024 Beta HCG ( test) Ql (U) Negative Normal [facility] Comment on above: Result Comment: Very dilute urine specimens, as indicated by a low specific gravity, may not contain senior customer service representative levels of hCG. If is still suspected, a first morning urine specimen should be collected 48 hours later and tested. Performed By: #### L 509.4006, L100.0100, L3890.6301, L7000.1800, BTS, M100.2200, L3890.6102, L3890.6006, L509.8002 #### [facility] [address] [place], [address] Protein Test strip Ql (U)Ord ered By: Daniel Schneider on 11-05-2024 Protein Ql (U) Negative Negative [facility] RBC Auto (Bld) [#/Vol]Ordere d By: Daniel Schneider on 11-05-2024 RBC (Bld) [#/Vol] 4.47 10*6/uL 4.2-5.4 [facility] Serum creatinine measurement (mass/volume)Ordered By: Daniel Schneider on 11-05-2024 Creatinine [Mass/Vol] 0.68 mg/dL Low 0.70-1.20 [facility] Serum globulin measurementOr dered By: Daniel Schneider on 11-05-2024 Globulin (S) [Mass/Vol] 2.4 g/dL 2.2-4.2 [facility] Serum glucose measurement (m ass/volume)Ordered By: Daniel Schneider on 11-05-2024 Glucose [Mass/Vol] 80 mg/dL 70-99 [facility] Serum or plasma alanine phoenix otransferase (ALT) measurementOrdered By: Daniel Schneider on 11-05-2024 ALT [Catalytic activity/Vol] 15 U/L <35 [facility] Serum or plasma albumin saulo urement (mass/volume)Ordered By: Daniel Schneider on 11-05-2024 Albumin [Mass/Vol] 4.3 g/dL 3.5-5.0 [facility] Serum or plasma albumin/glob ulin mass ratioOrdered By: Daniel Schneider on 11-05-2024 Albumin/Globulin [Mass ratio] 1.8 {ratio} 0.9-2.4 [facility] Serum or plasma alkaline diego sphatase measurementOrdered By: Daniel Schneider on 11-05-2024 ALP [Catalytic activity/Vol] 59 U/L 35-104 [facility] Serum or plasma calcium saulo urement (mass/volume)Ordered By: Daniel Schneider on 11-05-2024 Calcium [Mass/Vol] 9.0 mg/dL 7.6-11.0 [facility] Serum or plasma urea nitroge n measurement (mass/volume)Ordered By: Daniel Schneider on 11-05-2024 Urea nitrogen [Mass/Vol] 11 mg/dL 4-19 [facility] Sodium levelOrdered By: Pat Schneider on 11-05-2024 Sodium [Moles/Vol] 138 mmol/L 133-145 [facility] Squamous epithelial cells de tection in urine sediment by light microscopyOrdered By: Daniel Schneider on 11-05-2024 Epithelial cells.squamous LM Ql (Urine sed) 0 SEEN /hpf 5-10 [facility] Total proteinOrdered By: Claudia Schneider on 11-05-2024 Protein [Mass/Vol] 6.7 g/dL 5.9-8.4 [facility] Urinalysis, Completeon 11-05 BACTERIA 0 SEEN Normal None Seen [facility] Comment on above: Order Comment: CLEAN CATCH Performed By: #### L 509.4006, L100.0100, L3890.6301, L7000.1800, BTS, M100.2200, L3890.6102, L3890.6006, L509.8002 #### [facility] [address] [place], [address] EPI,SQUAMOUS 0 SEEN Normal 5-10 [facility] Comment on above: Order Comment: CLEAN CATCH Performed By: #### L 509.4006, L100.0100, L3890.6301, L7000.1800, BTS, M100.2200, L3890.6102, L3890.6006, L509.8002 #### [facility] [address] [place], [address] Mucus Ql (Urine sed) 0 SEEN Normal [facility] Comment on above: Order Comment: CLEAN CATCH Performed By: #### L 509.4006, L100.0100, L3890.6301, L7000.1800, BTS, M100.2200, L3890.6102, L3890.6006, L509.8002 #### [facility] [address] [place], [address] RBC 0 SEEN Normal 0-5 [facility] Comment on above: Order Comment: CLEAN CATCH Performed By: #### L 509.4006, L100.0100, L3890.6301, L7000.1800, BTS, M100.2200, L3890.6102, L3890.6006, L509.8002 #### [facility] [address] [place], [address] WBC 0 SEEN Normal 0-5 [facility] Comment on above: Order Comment: CLEAN CATCH Performed By: #### L 509.4006, L100.0100, L3890.6301, L7000.1800, BTS, M100.2200, L3890.6102, L3890.6006, L509.8002 #### [facility] [address] [place], [address] Urine blood detectionOrdered By: Daniel Schneider on 11-05-2024 Urine Occult Blood Negative Negative [facility] Urine clarityOrdered By: Claudia Schneider on 11-05-2024 Clarity (U) Clear Clear [facility] Urine color determinationOrd ered By: Daniel Schneider on 11-05-2024 Color (U) Yellow Yellow [facility] Urine glucose detectionOrder ed By: Daniel Schneider on 11-05-2024 Glucose Ql (U) Normal mg/dl Normal [facility] Urine leukocyte esterase det ection by dipstickOrdered By: Daniel Schneider on 11-05-2024 Leukocyte esterase Test strip Ql (U) Negative Negative [facility] Urine pHOrdered By: Daniel coyle on 11-05-2024 pH (U) 7.0 [pH] 5.0 - 8.0 [facility] Urine testOrdered By: Daniel Schneider on 11-05-2024 HCG ( test) Ql (U) Negative [facility] Comment on above: Very dilute urine sp ecimens, as indicated by a low specificgravity, may not contain senior customer service representative levels of hCG. If is still suspected, a first morning urinespecimen should be collected 48 hours later and tested. Urine sediment bacteria coun t by microscopy (number/high power field)Ordered By: Daniel Schneider on 11-05-2024 Bacteria LM.HPF (Urine sed) [#/Area] 0 /[HPF] None Seen [facility] Urine specific gravity measu rementOrdered By: Daniel Schneider on 11-05-2024 Specific gravity (U) [Rel density] 1.010 1.002-1.030 [facility] Urine urobilinogen measureme ntOrdered By: Daniel Schneider on 11-05-2024 Urobilinogen Ql (U) Normal mg/dl Normal [facility] Urobilinogen Ql (U)Ordered B y: Daniel Schneider on 11-05-2024 Urine Urobilinogen Normal mg/dl Normal [facility] White blood cell (WBC) count Ordered By: Daniel Schneider on 11-05-2024 WBC (Bld) [#/Vol] 3.3 10*3/uL Low 4.4-11.0 [facility] White blood cell countOrdere d By: Daniel Schneider on 11-05-2024 Urine WBC 0 SEEN /hpf 0-5 [facility] White blood cell count 0 SEEN /hpf 0-5 [facility] XR CHEST 2 VIEWSon XR CHEST 2 VIEWS Interpreted By: Hood Melendez, STUDY: XR CHEST 2 VIEWS; 09/22/2024 3:55 pm INDICATION: Signs/Symptoms:rule out pneumonia. ,J40 Bronchitis, not specified as acute or chronic COMPARISON: 06/29/2013 ACCESSION NUMBER(S): [id number] ORDERING CLINICIAN: AYAKA DOSS FINDINGS: CARDIOMEDIASTINAL SILHOUETTE: Cardiomediastinal silhouette is normal in size and configuration. LUNGS: Lungs are clear. ABDOMEN: No remarkable upper abdominal findings. BONES: No acute osseous changes. IMPRESSION: 1. No evidence of acute cardiopulmonary process. MACRO: None Signed by: Hood Carmen 09/23/2024 8:00 AM Dictation workstation: [id number] [facility] CBC (INCLUDES DIFF/PLT)on Basophils (Bld) [#/Vol] 0.022 10*3/uL Normal 0-200 [facility] Comment on above: Performed By: #### 6 056, 98855, 02740 #### [facility] [address], [address] [place], [place] [address] Stain Wiper: Jean Pierre Whitehead MD Basophils/100 WBC (Bld) 0.3 % Normal [facility] Comment on above: Performed By: #### 6 399, 79019, 53476 #### [facility] of [address], [address] [place], [place] [address] Stain Wiper: Jean Pierre Whitehead MD Eosinophils (Bld) [#/Vol] 0.058 10*3/uL Normal 15-500 [facility] Comment on above: Performed By: #### 6 399, 21083, 70820 #### [facility] [address], [address] [place], [place] [address] Stain Wiper: Jean Pierre Whitehead MD Eosinophils/100 WBC (Bld) 0.8 % Normal [facility] Comment on above: Performed By: #### 6 399, , 56462 #### [facility] of [place] [address] Stain Wiper: Jean Pierre Whitehead MD Erythrocyte distribution width (RBC) [Ratio] 11.9 % Normal 11.0-15.0 [facility] Comment on above: Performed By: #### 6 399, , 02556 #### [facility] of [place] [address] Stain Wiper: Jean Pierre Whitehead MD Hematocrit (Bld) [Volume fraction] 40.9 % Normal 35.0-45.0 [facility] Comment on above: Performed By: #### 6 399, , 69403 #### [facility] of [place] [address] Stain Wiper: Jean Pierre Whitehead MD Hemoglobin (Bld) [Mass/Vol] 13.7 g/dL Normal 11.7-15.5 [facility] Comment on above: Performed By: #### 6 399, , 28425 #### [facility] [place] [address] Stain Wiper: Jean Pierre Whitehead MD Lymphocytes (Bld) [#/Vol] 1.145 10*3/uL Normal 850-3900 [facility] Comment on above: Performed By: #### 6 399, , 13167 #### [facility] of [place] [address] Stain Wiper: Jean Pierre Whitehead MD Lymphocytes/100 WBC (Bld) 15.9 % Normal [facility] Comment on above: Performed By: #### 6 399, , 89443 #### [facility] of [place] [address] Stain Wiper: Jean Pierre Whitehead MD MCH (RBC) [Entitic mass] 30.8 pg Normal 27.0-33.0 [facility] Comment on above: Performed By: #### 6 399, , 42773 #### [facility] of [address], [address] [place] [address] Stain Wiper: Jean Pierre Whitehead MD MCHC (RBC) [Mass/Vol] [...] condition. Performed By: #### 6 399, , 17600 #### [facility] of [place] [address] Stain Wiper: Jean Pierre Whitehead MD MCV (RBC) [Entitic vol] 91.9 fL Normal 80.0-100.0 [facility] Comment on above: Performed By: #### 6 399, , 72036 #### [facility] of [place] [address] Stain Wiper: Jean Pierre Whitehead MD Monocytes (Bld) [#/Vol] 0.374 10*3/uL Normal 200-950 [facility] Comment on above: Performed By: #### 6 399, , 71123 #### [facility] of [place] [address] Stain Wiper: Jean Pierre Whitehead MD Monocytes/100 WBC (Bld) 5.2 % Normal [facility] Comment on above: Performed By: #### 6 399, , 24496 #### [facility] of [place] [address] Stain Wiper: Jean Pierre Whitehead MD Neutrophils (Bld) [#/Vol] 5.602 10*3/uL Normal 3620-3829 [facility] Comment on above: Performed By: #### 6 399, , 24611 #### [facility] of [place] [address] Stain Wiper: Jean Pierre Whitehead MD Neutrophils/100 WBC (Bld) 77.8 % Normal [facility] Comment on above: Performed By: #### 6 399, , 11886 #### [facility] of [place] [address] Stain Wiper: Jean Pierre Whitehead MD Platelet mean volume (Bld) [Entitic vol] 11.1 fL Normal 7.5-12.5 [facility] Comment on above: Performed By: #### 6 399, , 52978 #### [facility] of [place] [address] Stain Wiper: Jean Pierre Whitehead MD Platelets (Bld) [#/Vol] 173 10*3/uL Normal 140-400 [facility] Comment on above: Performed By: #### 6 399, , 62320 #### [facility] of [place] [address] Stain Wiper: Jean Pierre Whitehead MD RBC (Bld) [#/Vol] 4.45 10*6/uL Normal 3.80-5.10 [facility] Comment on above: Performed By: #### 6 399, , 66501 #### [facility] of [place] [address] Stain Wiper: Jean Pierre Whitehead MD WBC (Bld) [#/Vol] 7.2 10*3/uL Normal 3.8-10.8 [facility] Comment on above: Performed By: #### 6 399, , 22682 #### [facility] of [place] [address] Stain Wiper: Jean Pierre Whitehead MD COMPREHENSIVE METABOLIC PANE L W/ANION GAPon 09-21-2024 Albumin [Mass/Vol] 4.7 g/dL Normal 3.6-5.1 [facility] Comment on above: Order Comment: FASTI NG:NO FASTING: NO Performed By: #### 6 399, , 22182 #### [facility] of [address] [place] [address] Stain Wiper: Jean Pierre Whitehead MD ALP [Catalytic activity/Vol] 48 U/L Normal 31-125 [facility] Comment on above: Order Comment: FASTI NG:NO FASTING: NO Performed By: #### 6 399, 81986, 36657 #### [facility] [place] [address] Stain Wiper: Jean Pierre Whitehead MD ALT [Catalytic activity/Vol] 12 U/L Normal 6-29 [facility] Comment on above: Order Comment: FASTI NG:NO FASTING: NO Performed By: #### 6 399, 19577, 08445 #### [facility] [place] [address] Stain Wiper: Jean Pierre Whitehead MD AST [Catalytic activity/Vol] 15 U/L Normal 10-30 [facility] Comment on above: Order Comment: FASTI NG:NO FASTING: NO Performed By: #### 6 399, 74982, 79751 #### [facility] [place] [address] Stain Wiper: Jean Pierre Whitehead MD Bilirubin [Mass/Vol] 0.5 mg/dL Normal 0.2-1.2 [facility] Comment on above: Order Comment: FASTI NG:NO FASTING: NO Performed By: #### 6 399, 11850, 36886 #### [facility] [place] [address] Stain Wiper: Jean Pierre Whitehead MD Calcium [Mass/Vol] 9.4 mg/dL Normal 8.6-10.2 [facility] Comment on above: Order Comment: FASTI NG:NO FASTING: NO Performed By: #### 6 399, 96986, 05884 #### [facility] [place] [address] Stain Wiper: Jean Pierre Whitehead MD Chloride [Moles/Vol] 103 mmol/L Normal 98-110 [facility] Comment on above: Order Comment: FASTI NG:NO FASTING: NO Performed By: #### 6 399, 01607, 93447 #### [facility] [address], [address] [place] [address] Stain Wiper: Jean Pierre Whitehead MD CO2 [Moles/Vol] 26 mmol/L Normal 20-32 [facility] Comment on above: Order Comment: FASTI NG:NO FASTING: NO Performed By: #### 6 399, , 37479 #### [facility] [address], [address] [place] [address] Stain Wiper: Jean Pierre Whitehead MD Creatinine [Mass/Vol] 0.61 mg/dL Normal 0.50-0.96 [facility] Comment on above: Order Comment: FASTI NG:NO FASTING: NO Performed By: #### 6 399, , 45120 #### [facility] [address], [address] [place] [address] Stain Wiper: Jean Pierre Whitehead MD ELECTROLYTE BALANCE 8 mmol/L (calc) Normal 7-17 [facility] Comment on above: Order Comment: FASTI NG:NO FASTING: NO Performed By: #### 6 399, , 33325 #### [facility] [place] [address] Stain Wiper: Jean Pierre Whitehead MD GFR/1.73 sq M.predicted among non-blacks MDRD (S/P/Bld) [Vol rate/Area] 126 mL/min/{1.73_m2} Normal > OR = 60 [facility] Comment on above: Order Comment: FASTI NG:NO FASTING: NO Performed By: #### 6 399, , 61475 #### [facility] [address], [address] [place] [address] Stain Wiper: Jean Pierre Whitehead MD Glucose [Mass/Vol] 83 mg/dL Normal 65-139 [facility] Comment on above: Order Comment: FASTI NG:NO FASTING: NO Result Comment: Non-fasting reference interval Performed By: #### 6 399, , 26489 #### [facility] [address] [place] [address] Stain Wiper: Jean Pierre Whitehead MD Potassium [Moles/Vol] 3.7 mmol/L Normal 3.5-5.3 [facility] Comment on above: Order Comment: FASTI NG:NO FASTING: NO Performed By: #### 6 399, 09374, 39761 #### [facility] [place] [address] Stain Wiper: Jean Pierre Whitehead MD Protein [Mass/Vol] 6.9 g/dL Normal 6.1-8.1 [facility] Comment on above: Order Comment: FASTI NG:NO FASTING: NO Performed By: #### 6 399, 06856, 77702 #### [facility] [place] [address] Stain Wiper: Jean Pierre Whitehead MD Sodium [Moles/Vol] 137 mmol/L Normal 135-146 [facility] Comment on above: Order Comment: FASTI NG:NO FASTING: NO Performed By: #### 6 399, 45966, 11200 #### [facility] [place] [address] Stain Wiper: Jean Pierre Whitehead MD Urea nitrogen [Mass/Vol] 12 mg/dL Normal 7-25 [facility] Comment on above: Order Comment: FASTI NG:NO FASTING: NO Performed By: #### 6 399, 62836, 77926 #### [facility] [place] [address] Stain Wiper: Jean Pierre Whitehead MD HCG, TOTAL, QLon 09-21-2024 HCG, TOTAL, QL Negative Normal See Note: [facility] Comment on above: Result Comment: Refe rence Range: Reference Range Non-: Negative : Positive Performed By: #### 8 435 #### [facility] [place] [address] Stain Wiper: Jean Pierre Whitehead MD TSH W/REFLEX TO FT4on 2024 TSH W/REFLEX TO FT4 3.78 mIU/L Normal [facility] Comment on above: Result Comment: Refe rence Range > or = 20 Years 0.40-4.50 Ranges First trimester 0.26-2.66 Second trimester 0.55-2.73 Third trimester 0.43-2.91 Performed By: #### 6 399, 76875, 83208 #### [facility] [address] [facility], [address] [place] [address] Stain Wiper: Jean Pierre Whitehead MD POCT SARS-COV-2/FLU/RSV PCR SYMPTOMATIC manually resultedon 09-09-2024 FLUAV RNA SHANAE+probe Ql (Resp) Not detected Not Detected [facility] Work Phone: FLUBV RNA SHANAE+probe Ql (Resp) Not detected Not Detected [facility] Work Phone: Interpretation and review of laboratory results Normal [facility] Work Phone: RSV RNA SHANAE+probe Ql (Resp) Not detected Not Detected [facility] Work Phone: SARS-CoV-2 (COVID-19) RNA SHANAE+probe Ql (Resp) Not detected Not Detected [facility] Work Phone: [facility] Work Phone: US RENAL COMPLETEon 08-31-19 US RENAL COMPLETE Interpreted By: Gold Stephen, STUDY: US RENAL COMPLETE; 08/31/2024 8:17 am INDICATION: Signs/Symptoms:urgency, bilaeral flank pain. ,R39.9 Unspecified symptoms and signs involving the genitourinary system COMPARISON: None. ACCESSION NUMBER(S): [id number] ORDERING CLINICIAN: AYAKA DOSS TECHNIQUE: Multiple images [...] Gold Quiñones 09/01/2024 5:56 AM Dictation workstation: [id number] [facility] POCT UA Automated manually r esultedon 08-30-2024 Appearance (U) Clear Clear [facility] Work Phone: Glucose Test strip (U) [Mass/Vol] Negative NEGATIVE mg/dl [facility] Work Phone: [phone] Hemoglobin Ql (U) Negative NEGATIVE [facility] Work Phone: )[phone] Leukocyte esterase Test strip Ql (U) Negative NEGATIVE [facility] Work Phone: )[phone] Nitrite Ql (U) Negative NEGATIVE [facility] Work Phone: [phone] pH (U) 7.0 [pH] No Reference Range Established [facility] Work Phone: [phone] POC Bilirubin, Urine Negative NEGATIVE [facility]: )[phone] POC Color, Urine Yellow Straw, Yellow, Light-Yellow [facility] Work Phone: )[phone] POC Ketones, Urine Negative NEGATIVE mg/dl [facility] Work Phone: [phone] POC Protein, Urine Negative NEGATIVE mg/dl [facility] Work Phone: POC Specific [place], Urine 1.020 1.005 - 1.035 [facility] Work Phone: POC Urobilinogen, Urine 0.2 0.2, 1.0 EU/DL [facility] Work Phone: [facility] Work Phone: Bacteria identifiedon 2023 Bacteria identified Cx Nom (U) Test: Urine Culture Specimen Source: Clean Catch/Voided Specimen Type: Urine Specimen Date: 06/01/2024 1321 Result Date: 06/03/2024 0826 Result Status: Final result Abnormal: No Resulting Lab: [facility] [address] [place] [id number] CULTURE Normal genitourinary juan daniel Normal [facility] Comment on above: Performed By: #### 6 30-4 #### MARKEL Lazar ([id number]) [facility] ([facility]) [id number] [place] [address] Blood type and Indirect anti body screen panel (Bld)on 04-28-2024 ABO group Nom (Bld) A [facility] Blood group antibody screen Ql Negative [facility] D Ag Ql (Bld) Positive [facility] ABO group Nom (Bld) A Normal [facility] Comment on above: Performed By: #### 3 4532-2 #### BHUMI OLIVERA ([id number]) [facility] ([facility]) [address] [place] [address] [place] Blood group antibody screen Ql Negative [facility] Comment on above: Performed By: #### 3 4532-2 #### BHUMI OLIVERA ([id number]) [facility] ([facility]) [address] [place] [address] D Ag Ql (Bld) Positive [facility] Comment on above: Performed By: #### 3 4532-2 #### BHUMI OLIVERA ([id number]) [facility] [address] [place] [address] US HCG ( test) Ql (U)o n 04-28-2024 Preg Test, Ur Negative Negative [facility] Work Phone: [facility] Work Phone: Surgical pathology studyon 0 04-28-2024 Surgical pathology study Pathology report.total SEE COMMENT Surgical Pathology Case: [id number] Authorizing Provider: Jayden Taylor MD Collected: 04/28/2024 0856 Ordering Location: [facility] OR Received: 04/28/2024 1144 Pathologist: Tere [...] and submitted entirely in 3 cassettes. JLL [facility] Comment on above: Order Comment: Pre-o p diagnosis: Endometriosis determined by laparoscopy [N80.9] VERAB/VERIFY ABORHon 024 ABO group Nom (Bld) A Normal [facility] Comment on above: Order Comment: Thi s is for confirming/verifying history of ABORh on file for transfusion of blood products. If this is not for transfusion, please order an ABO/RH [[id number]]. If you have any questions or unsure what to order, please call the blood bank. Performed By: #### V ERAB #### BHUMI LEWISI ([id number]) [facility] ([facility]) [address] D Ag Ql (Bld) Positive [facility] Comment on above: Order Comment: Thi s is for confirming/verifying history of ABORh on file for transfusion of blood products. If this is not for transfusion, please order an ABO/RH [[id number]]. If you have any questions or unsure what to order, please call the blood bank. Performed By: #### V ERAB #### BHUMI JAROD ([id number]) [facility] ([facility]) [address] [place] [address] VERIFY ABO/Rh Group Teston 0 04-28-2024 ABO group Nom (Bld) A [facility] D Ag Ql (Bld) Positive [facility] Basic metabolic 2000 panelon 04-19-2024 Anion gap [Moles/Vol] 10 mmol/L Normal 10-20 [facility] Comment on above: Performed By: #### 2 4321-2 #### BHUMI OLIVERA ([id number]) [facility] ([facility]) [address] [place] [address] Calcium [Mass/Vol] 9.4 mg/dL Normal 8.6-10.3 [facility] Comment on above: Performed By: #### 2 4321-2 #### BHUMI OLIVERA ([id number]) [facility] ([facility]) [address] [place] [address] Chloride [Moles/Vol] 106 mmol/L Normal 98-107 [facility] Comment on above: Performed By: #### 2 4321-2 #### BHUMI OLIVERA ([id number]) [facility] ([facility]) [address] [place] [address] CO2 [Moles/Vol] 26 mmol/L Normal 21-32 [facility] Comment on above: Performed By: #### 2 4321-2 #### BHUMI OLIVERA ([id number]) [facility] ([facility]) [address] [place] [address] Creatinine [Mass/Vol] 0.74 mg/dL Normal 0.50-1.05 [facility] Comment on above: Performed By: #### 2 4321-2 #### BHUMI OLIVERA ([id number]) [facility] ([facility]) [address] [place] [address] GFR/1.73 sq M.predicted MDRD (S/P/Bld) [Vol rate/Area] mL/min/{1.73_m2} Normal >60 [facility] Comment on above: Result Comment: Calc ulations of estimated GFR are performed using the 2020 CKD-EPI Study Refit equation without the race variable for the IDMS-Traceable creatinine methods. https://jasn.asnjournals.org/content/early//ASN.09486 64513 Performed By: #### 2 4321-2 #### BHUMI OLIVERA ([id number]) [facility] ([facility]) [address] [place] [address] Glucose [Mass/Vol] 85 mg/dL Normal 74-99 [facility] Comment on above: Performed By: #### 2 4321-2 #### BHUMI OLIVERA ([id number]) [facility] ([facility]) [address] [place] [address] Potassium [Moles/Vol] 4.0 mmol/L Normal 3.5-5.3 [facility] Comment on above: Performed By: #### 2 4321-2 #### BHUMI OLIVERA ([id number]) [facility] ([facility]) [address] [place] [address] Sodium [Moles/Vol] 138 mmol/L Normal 136-145 [facility] Comment on above: Performed By: #### 2 4321-2 #### BHUMI OLIVERA ([id number]) [facility] ([facility]) [address] [place] [address] Urea nitrogen [Mass/Vol] 17 mg/dL Normal 6-23 [facility] Comment on above: Performed By: #### 2 4321-2 #### BHUMI OLIVERA ([id number]) [facility] ([facility]) [address] [place] [address] Hemoglobin and Hematocrit pa joyce (Bld)on 04-19-2024 Hematocrit (Bld) [Volume fraction] 39.9 % Normal 36.0-46.0 [facility] Comment on above: Performed By: #### 2 4360-0 #### BHUMI OLIVERA ([id number]) [facility] ([facility]) [address] [place] [address] Hemoglobin (Bld) [Mass/Vol] 14.3 g/dL Normal 12.0-16.0 [facility] Comment on above: Performed By: #### 2 4360-0 #### BHUMI OLIVERA ([id number]) [facility] ([facility]) [address] [place] [address] LMPon 02-15-2023 Last menstrual period start date 08Feb[facility]23 [facility] Work Phone: FIELD MARKETING DIRECTOR - Office Visiton 01-30 FIELD MARKETING DIRECTOR - Office Visit Provider Florentin christine Km is a 27-year-old who comes in for routine DIRECTOR BIOSTATISTICS exam exam was benign except for pelvic discomfort. Patient seen a pain specialist patient will follow-up in 1 year or sooner if she becomes Chief Complaint Patient here today for annual exam. She has no concerns. LMP: 02/08/2023. Last pap 01/14/2022 NIL. History of Present IllnessDamelchor is a 27-year-old who comes in for routine DIRECTOR BIOSTATISTICS exam. Patient has chronic pelvic pain and [...] DAILY WITH FOOD. Vitals Vital Signs Recorded: [id number] 10:24AM Karcoajd239 Iabvhgcur71 Height4 ft 11 in Vyagvb608 lb 2 oz BMI Txvkqaxvgm34.86 kg/m2 BSA Calculated1.47 [id number] Physical Exam Constitutional: Healthy appearing young female. Head and Face: No obvious lesions. Neck: Supple without adenopathy or masses. Cardiovascular: Regular rate and rhythm. Pulmonary (more content not included)... Normal [employer] No Panel Informationon 02-01 Normal [facility] [address] Work Phone: [phone] Radiologyon 02-01-2023 US Gallbladder Normal [facility] [address] [employer] Work Phone: SPINE, LUMBOSACRAL MIN 4 VIE WSon 02-01-2023 SPINE, LUMBOSACRAL MIN 4 VIEWS Patient Name: KM HUNT STUDY: Lumbar Spine, 5 views. INDICATION: low back pain. COMPARISON: CT of the abdomen and pelvis 11/19/2022 ACCESSION NUMBER(S): [id number] ORDERING CLINICIAN: SUKH POLLOCK FINDINGS: Mild grade 1 L5-S1 anterolisthesis. Disc heights are maintained. Mild facet arthropathy at L5-S1. Vertebral body heights are preserved. Unilateral left L5 pars defects better visualized on the previous CT from 11/19/2022 IMPRESSION: 1. As above. Electronically signed by: SINAN BENOIT MD [facility] GALLBLADDERon 02-01-2023 US GALLBLADDER Patient Name: KM HUNT STUDY: US GALLBLADDER; 02/01/2023 12:29 pm INDICATION: nausea and vomiting. COMPARISON: None. ACCESSION NUMBER(S): [id number] ORDERING CLINICIAN: SUKH POLLOCK TECHNIQUE: Multiple grayscale [...] gallbladder. Electronically signed by: KIRSTIN HI MD [facility] FIELD MARKETING DIRECTOR - Office Visiton 05- FIELD MARKETING DIRECTOR - Office Visit Diagnoses/Problems Assessed Anxiety and [...] PAP 01/14/2022 WNL; LMP 12/08/2022; G0 [facility] [employer] PROGRAM SPECIALIST Adult Risk ScreeningThere are no spiritual/cultural practices/values/needs [...] pain (s (more content not included)... Normal [employer] Tobacco Screening.on 023 Adult depression screening assessment No [facility] s [facility] [address] Work Phone: Fall risk assessment a) No falls within the last year AN-HLCLT-Ecu man [address] Work Phone: Last menstrual period start date 08Dec2022 GS-KGXWT-Akn man [address] Work Phone: Tobacco use status [facility] b) No ZO-ZZPPB-Yic man [address] Work Phone: Office Visit (UROGYN-FPMRS)o [...] cxs. - Discussed trying PFPT with Irene Ponce in [place]. Patient is amenable to this. PFPT requisition sent today and gave her the list of local physical therapists with their corresponding locations/contact information. - Referral made to Dr. Jayden Taylor for consultation and to determine whether surgical intervention (diagnositc laparoscopy) would be beneficial. Follow-up as needed with Dr. Mariah Lr. IAlban, am scribing for virtually, and in the [...] pelvic cecilio (more content not included)... Normal [employer] Tobacco Screening.on 023 Adult depression screening assessment Yes [facility] Work Phone: Fall risk assessment a) No falls within the last year [facility] Work Phone: Last menstrual period start date 09Nov2022 [facility] Work Phone: Tobacco use status [facility] b) No [facility] Work Phone: Cult, Urineon 11-24-2022 Bacteria identified Cx Nom (U) [facility] Work Phone: LMPon 11-24-2022 Last menstrual period start date [id number] [facility] [address] Work Phone: FIELD MARKETING DIRECTOR - Office Visiton 11-01 FIELD MARKETING DIRECTOR - Office Visit Provider Florentin christine Km [...] she have an evaluation done by your process development manager and if that yields no answers then we could proceed to a laparoscopy Chief Complaint Patient here today for ER follow up. She is having abdominal discomfort all the time almost a burning bloating sensation. She notes she has IBS-c. She has nausea and vomiting associated with bowel movements. She has pain with intercourse. LMP 11/09/22 History of Present IllnessKm is a 27-year-old who comes in for [...] UA MICROSCOPICon 11-24-2022 BACTERIA 1+ /HPF Abnormal [facility] Comment on above: Performed By: #### U AMIC #### [address] [address] Mucus Ql (Urine sed) 1+ /LPF Normal [facility] Comment on above: Performed By: #### U AMIC #### [address] [address] RBC (U) [#/Vol] /uL Normal 0-5 [facility] Comment on above: Performed By: #### U AMIC #### [address] [address] SQUAMOUS EPITH. CELLS 1 /HPF Normal [facility] Comment on above: Performed By: #### U AMIC #### [address] [address] WBC (U) [#/Vol] /uL Normal 0-5 [facility] Comment on above: Performed By: #### U AMIC #### [address] [address] URINE CULTURE,BACTERIALon URINE CULTURE,BACTERIAL PATIENT: KM HUNT LOCATION: [id number] BILL#: [id number] : 89 AGE: SEX: F ORDERED BY: SHARDA CHÁVEZ SOURCE: URINE COLLECTED: 11/24/22 10:17 ANTIBIOTICS AT TREVER.: RECEIVED : 11/24/22 23:58 SITE: Clean Catch/Voided R E S U L T S URINE CULTURE,BACTERIAL FINAL 11/25/22 19:09 NO GROWTH Normal [facility] Comment on above: Performed By: #### U RINC #### [facility] [address] [place] [address] Urinalysis, Microscopicon Urinalysis, Microscopic 1+ Abnormal [facility] [address] Work Phone: [phone] Urinalysis, Microscopic 1 {/HPF} [facility] [address] Work Phone: [phone] Urinalysis, Microscopic <1 0-5 [facility] [address] Work Phone: [phone] TRICHOMONAS,NUCLEIC ACID DET ECTIONon 11-20-2022 TRICHOMONAS VAGINALIS Negative Normal Negative [facility] Comment on above: Result Comment: The APTIMA Trichomonas vaginalis assay is FDA-approved for testing on female endocervical swabs, vaginal swabs, and ThinPrep liquid pap samples. Performance characteristics for Trichomonas vaginalis on specific wod-XZS-ncmnbafw sample types (female and male urine and male urethral swabs) have been validated by [facility]. This laboratory is certified by CLIA to perform high complexity testing. Samples from all other sites are not validated for this method. Performance characteristics for Trichomonas Vaginalis testing on urine samples has been validated by [facility]. Testing on this sample type is not FDA-approved, but such approval is not necessary. This laboratory is certified by CLIA to perform high complexity testing. Performed By: #### T SIOMARA #### [facility] [address] [place] [address] BASIC METABOLIC PANELon 11-01 Anion gap [Moles/Vol] 13 mmol/L Normal 10 - 20 [facility] Comment on above: Performed By: #### B MP #### [address] [address] Calcium [Mass/Vol] 10.2 mg/dL Normal 8.6 - 10.3 [facility] Comment on above: Performed By: #### B MP #### [address] [address] Chloride [Moles/Vol] 103 mmol/L Normal 98 - [address] [facility] Comment on above: Performed By: #### B MP #### [address] [address] Creatinine [Mass/Vol] 0.80 mg/dL Normal 0.50 - 1.05 [facility] Comment on above: Performed By: #### B MP #### [address] [address] eGFR FEMALE >90 Normal >90 [facility] Comment on above: Result Comment: CALC ULATIONS OF ESTIMATED GFR ARE PERFORMED USING THE 2020 CKD-EPI STUDY REFIT EQUATION WITHOUT THE RACE VARIABLE FOR THE IDMS-TRACEABLE CREATININE METHODS. https://jasn.asnjournals.org/content/early/ASN.04046 00299 Performed By: #### B MP #### [address] [address] Glucose [Mass/Vol] 76 mg/dL Normal 74 - 99 [facility] Comment on above: Performed By: #### B MP #### [address] [address] HCO3 (Bld) [Moles/Vol] 27 mmol/L Normal 21 - 32 [facility] Comment on above: Performed By: #### B MP #### [address] [address] Potassium [Moles/Vol] 3.5 mmol/L Normal 3.5 - 5.3 [facility] Comment on above: Performed By: #### B MP #### [address] [address] Sodium [Moles/Vol] 139 mmol/L Normal 136 - 145 [facility] Comment on above: Performed By: #### B MP #### [address] [address] Urea nitrogen [Mass/Vol] 18 mg/dL Normal 6 - 23 [facility] Comment on above: Performed By: #### B MP #### [address] [address] CBC AND DIFFERENTIALon 11-19 % AUTOMATED IMMATURE GRAN 0.1 % Normal 0.0 - 0.9 [facility] Comment on above: Result Comment: Radhika ture Granulocyte Count (IG) includes promyelocytes, myelocytes and metamyelocytes but does not include bands. Percent differential counts (%) should be interpreted in the context of the absolute cell counts (cells/L). Performed By: #### C BCDF #### [address] [address] Basophils (Bld) [#/Vol] 0.05 10*3/uL Normal 0.00 - 0.10 [facility] Comment on above: Performed By: #### C BCDF #### [address] [address] Basophils/100 WBC (Bld) 0.7 % Normal 0.0 - 2.0 [facility] Comment on above: Performed By: #### C BCDF #### [address] [address] Eosinophils (Bld) [#/Vol] 0.16 10*3/uL Normal 0.00 - 0.70 [facility] Comment on above: Performed By: #### C BCDF #### [address] [address] Eosinophils/100 WBC (Bld) 2.2 % Normal 0.0 - 6.0 [facility] Comment on above: Performed By: #### C BCDF #### [address] [address] Erythrocyte distribution width (RBC) [Ratio] 11.4 % Low 11.5 - 14.5 [facility] Comment on above: Performed By: #### C BCDF #### [address] [address] Hematocrit (Bld) [Volume fraction] 40.8 % Normal 36.0 - 46.0 [facility] Comment on above: Performed By: #### C BCDF #### [address] [address] Hemoglobin (Bld) [Mass/Vol] 14.1 g/dL Normal 12.0 - 16.0 [facility] Comment on above: Performed By: #### C BCDF #### [address] [address] Lymphocytes (Bld) [#/Vol] 3.30 10*3/uL Normal 1.20 - 4.80 [facility] Comment on above: Performed By: #### C BCDF #### [address] [address] Lymphocytes/100 WBC (Bld) 46.0 % Normal 13.0 - 44.0 [facility] Comment on above: Performed By: #### C BCDF #### [address] [address] MCHC (RBC) [Mass/Vol] 34.6 g/dL Normal 32.0 - 36.0 [facility] Comment on above: Performed By: #### C BCDF #### [address] [address] MCV (RBC) [Entitic vol] 86 fL Normal 80 - 100 [facility] Comment on above: Performed By: #### C BCDF #### [address] [address] Monocytes (Bld) [#/Vol] 0.39 10*3/uL Normal 0.10 - 1.00 [facility] Comment on above: Performed By: #### C BCDF #### [address] [address] Monocytes/100 WBC (Bld) 5.4 % Normal 2.0 - 10.0 [facility] Comment on above: Performed By: #### C BCDF #### [address] [address] Neutrophils (Bld) [#/Vol] 3.26 10*3/uL Normal 1.20 - 7.70 [facility] Comment on above: Result Comment: Perc ent differential counts (%) should be interpreted in the context of the absolute cell counts (cells/L). Performed By: #### C BCDF #### [address] [address] Neutrophils/100 WBC (Bld) 45.6 % Normal 40.0 - 80.0 [facility] Comment on above: Performed By: #### C BCDF #### [address] [address] Platelets (Bld) [#/Vol] 309 10*3/uL Normal 150 - 450 [facility] Comment on above: Performed By: #### C BCDF #### [address] [address] RBC 4.74 x10E12/L Normal 4.00 - 5.20 [facility] Comment on above: Performed By: #### C BCDF #### [address] [address] WBC (Bld) [#/Vol] 7.2 10*3/uL Normal 4.4 - 11.3 [facility] Comment on above: Performed By: #### C BCDF #### [address] [address] [address] ABDOMEN AND PELVIS W IV C [facility] 11-19-2022 CT ABDOMEN AND PELVIS W IV CONTRAST Patient Name: KM HUNT STUDY: CT ABDOMEN AND PELVIS W IV CONTRAST; 11/19/2022 7:00 pm INDICATION: llq abd pain . COMPARISON: 01/01/2022 ACCESSION NUMBER(S): [id number] ORDERING CLINICIAN: PAOLA PICKARD TECHNIQUE: Contiguous axial [...] Electronically signed by: JOSE RILEY MD Normal [facility] CT Abdomen and Pelvis with I V Contraston 11-19-2022 CT Abdomen and Pelvis W contrast IV Normal [facility] [address] [employer] Work Phone: [phone] Complete Blood Count + Diffe rentialon 11-19-2022 Basophils/100 WBC (Bld) 0.7 % 0.0 - 2.0 [facility] [address] [employer] Work Phone: [phone] Erythrocyte distribution width (RBC) [Ratio] 11.4 % below low threshold See Below [facility] [address] [employer] Work Phone: [phone] Comment on above: Reference Range: 11. 5 - 14.5 Hematocrit (Bld) [Volume fraction] 40.8 % See Below [facility] [address] [employer] Work Phone: [phone] Comment on above: Reference Range: 36. 0 - 46.0 Hemoglobin (Bld) [Mass/Vol] 14.1 g/dL See Below [facility] [address] [employer] Work Phone: [phone] Comment on above: Reference Range: 12. 0 - 16.0 Lymphocytes/100 WBC (Bld) 46.0 % See Below [facility] [address] [employer] Work Phone: [phone] Comment on above: Reference Range: 13. 0 - 44.0 MCHC (RBC) [Mass/Vol] 34.6 g/dL See Below [facility] [address] [employer] Work Phone: [phone] Comment on above: Reference Range: 32. 0 - 36.0 MCV (RBC) [Entitic vol] 86 fL 80 - 100 [facility] [address] [employer] Work Phone: [phone] Monocytes/100 WBC (Bld) 5.4 % 2.0 - 10.0 [facility] [address] [employer] Work Phone: [phone] Neutrophils/100 WBC (Bld) 45.6 % See Below [facility] [address] Work Phone: [phone] Comment on above: Reference Range: 40. 0 - 80.0 Platelets (Bld) [#/Vol] 309 10*3/uL 150 - 450 [facility] [address] Work Phone: [phone] RBC (Bld) [#/Vol] 4.74 {x10E12/L} See Below [facility] [address] Work Phone: [phone] Comment on above: Reference Range: 4.0 0 - 5.20 WBC (Bld) [#/Vol] 7.2 10*3/uL 4.4 - 11.3 [facility] [address] Work Phone: [phone] Complete Blood Count + Differential 0.05 {x10E9/L} See Below [facility] [address] Work Phone: [phone] Comment on above: Reference Range: 0.0 0 - 0.10 Complete Blood Count + Differential 0.16 {x10E9/L} See Below [facility] [address] Work Phone: [phone] Comment on above: Reference Range: 0.0 0 - 0.70 Complete Blood Count + Differential 0.39 {x10E9/L} See Below [facility] [address] [employer] Work Phone: [phone] Comment on above: Reference Range: 0.1 0 - 1.00 Complete Blood Count + Differential 3.30 {x10E9/L} See Below [facility] [address] Work Phone: [phone] Comment on above: Reference Range: 1.2 0 - 4.80 Complete Blood Count + Differential 3.26 {x10E9/L} See Below [facility] [address] Work Phone: [phone] Comment on above: Reference Range: 1.2 0 - 7.70 Percent differential counts (%) should be interpreted in the context of the absolute cell counts (cells/L). Complete Blood Count + Differential 2.2 % 0.0 - 6.0 [facility] [address] Work Phone: [phone] Complete Blood Count + Differential 0.1 % 0.0 - 0.9 [facility] [address] Work Phone: [phone] Comment on above: Immature Granulocyte Count (IG) includes promyelocytes, myelocytes and metamyelocytes but does not include bands. Percent differential counts (%) should be interpreted in the context of the absolute cell counts (cells/L). GC + CHLAMYDIA BY AMPLIFIED DETECTIONon 11-19-2022 CHLAMYDIA TRACH.,AMPLIFIED Not detected Normal NOT DETECTED [facility] Comment on above: Performed By: #### G CCHA #### [place] [address] Lab Specimen Source Urine Normal [facility] Comment on above: Performed By: #### G CCHA #### [place] [address] Performed By: #### T SIOMARA #### [facility] [address] [place] [address] N.GONORRHEA,AMPLIFIED Not detected Normal NOT DETECTED [facility] Comment on above: Performed By: #### G CCHA #### [place] [address] GC + Chlamydia By Amplified Detectionon 11-19-2022 C. trachomatis rRNA SHANAE+probe Ql (Unsp spec) Not detected See Below [facility] [address] [address] [employer] Work Phone: Comment on above: Reference Range: NOT DETECTED N. gonorrhoeae rRNA SHANAE+probe Ql (Unsp spec) Not detected See Below [facility] [address] [address] Work Phone: Comment on above: SOURCE: UrineReferen ce Range: NOT DETECTED HCG,URINEon 11-19-2022 Beta HCG ( test) Ql (U) Negative Normal Negative [facility] Comment on above: Performed By: #### U ARFX #### [place] [address] HEPATIC FUNCTION PANELon Albumin [Mass/Vol] 4.9 g/dL Normal 3.4 - 5.0 [facility] Comment on above: Performed By: #### H EPFP #### [place] [address] ALP [Catalytic activity/Vol] 53 U/L Normal 33 - 110 [facility] Comment on above: Performed By: #### H EPFP #### [address] [address] ALT [Catalytic activity/Vol] 25 U/L Normal 7 - 45 [facility] Comment on above: Result Comment: Sara ents treated with Sulfasalazine may generate falsely decreased results for ALT. Performed By: #### H EPFP #### [address] [address] AST [Catalytic activity/Vol] 22 U/L Normal 9 - 39 [facility] Comment on above: Performed By: #### H EPFP #### [address] [address] Bilirubin [Mass/Vol] 0.6 mg/dL Normal 0.0 - 1.[address] [facility] Comment on above: Performed By: #### H EPFP #### [address] [address] Bilirubin.indirect [Mass/Vol] 0.1 mg/dL Normal 0.0 - 0.3 [facility] Comment on above: Performed By: #### H EPFP #### [address] [address] Protein [Mass/Vol] 7.6 g/dL Normal 6.4 - 8.2 [facility] Comment on above: Performed By: #### H EPFP #### [address] [address] Hepatic Function Panelon Albumin BCP dye [Mass/Vol] 4.9 g/dL 3.4 - 5.0 [facility] [address] Work Phone: [phone] ALP [Catalytic activity/Vol] 53 U/L 33 - 110 [facility] [address] Work Phone: [phone] ALT With P-5'-P [Catalytic activity/Vol] 25 U/L 7 - 45 [facility] [address] Work Phone: [phone] Comment on above: Patients treated wit h Sulfasalazine may generate falsely decreased results for ALT. AST With P-5'-P [Catalytic activity/Vol] 22 U/L 9 - 39 [facility] [address] [employer] Work Phone: [phone] Bilirubin [Mass/Vol] 0.6 mg/dL 0.0 - 1.2 [facility] [address] Work Phone: [phone] Bilirubin.direct [Mass/Vol] 0.1 mg/dL 0.0 - 0.3 [facility] [address] Work Phone: [phone] Protein [Mass/Vol] 7.6 g/dL 6.4 - 8.2 [facility] [address] [employer] Work Phone: [phone] LIPASEon 11-19-2022 Lipase [Catalytic activity/Vol] 19 U/L Normal 9 - 82 [facility] Comment on above: Result Comment: Stephanie puncture immediately after or during the administration of Metamizole may lead to falsely low results. Testing should be performed immediately prior to Metamizole dosing. U-aahhui-c-benzoquinone imine (metabolite of Acetaminophen) will generate erroneously low results in samples for patients that have taken toxic doses of acetaminophen. Performed By: #### L IPAS #### [facility] [address] [place] [address] Laboratory - Chemistry and C hemistry - challengeon 11-19-2022 Anion gap [Moles/Vol] 13 mmol/L 10 - 20 [facility] [address] [employer] Work Phone: [phone] Calcium [Mass/Vol] 10.2 mg/dL 8.6 - 10.3 [facility] [address] Work Phone: [phone] Chloride [Moles/Vol] 103 mmol/L 98 - 107 [facility] [place] [address] Work Phone: [phone] CO2 [Moles/Vol] 27 mmol/L 21 - 32 [facility] [address] Work Phone: [phone] Creatinine [Mass/Vol] 0.80 mg/dL See Below [facility] [address] [employer] Work Phone: [phone] Comment on above: Reference Range: 0.5 0 - 1.05 Glucose [Mass/Vol] 76 mg/dL 74 - 99 [facility] [address] [employer] Work Phone: [phone] Potassium [Moles/Vol] 3.5 mmol/L 3.5 - 5.3 [facility] [address] Work Phone: [phone] Sodium [Moles/Vol] 139 mmol/L 136 - 145 [facility] [address] [employer] Work Phone: [phone] Urea nitrogen [Mass/Vol] 18 mg/dL 6 - 23 [facility] [employer] Work Phone: [phone] Lipase, Serumon 11-19-2022 Lipase [Catalytic activity/Vol] 19 U/L 9 - 82 [facility] [employer] Work Phone: [phone] Comment on above: Venipuncture immedia tely after or during the administration of Metamizole may lead to falsely low results. Testing should be performed immediately prior to Metamizole dosing. B-sgfnfy-s-benzoquinone imine (metabolite of Acetaminophen) will generate erroneously low results in samples for patients that have taken toxic doses of acetaminophen. No Panel Informationon 11-19 Negative Negative [facility] Work Phone: [phone] Comment on above: SOURCE: Urine The AP MADI Trichomonas vaginalis assay is FDA-approved for testing on female endocervical swabs, vaginal swabs, and ThinPrep liquid pap samples. Performance characteristics for Trichomonas vaginalis on specific bfi-JUG-geagpvce sample types (female and male urine and male urethral swabs) have been validated by [facility]. This laboratory is certified by CLIA to perform high complexity testing. Samples from all other sites are not validated for this method.Performance characteristics for Trichomonas Vaginalis testing on urine samples has been validated by [facility]. Testing on this sample type is not FDA-approved, but such approval is not necessary. This laboratory is certified by CLIA to perform high complexity testing. >90 >90 [facility] [address] [employer] Work Phone: Comment on above: CALCULATIONS OF MCKENNA MATED GFR ARE PERFORMED USING THE 2020 CKD-EPI STUDY REFIT EQUATION WITHOUT THE RACE VARIABLE FOR THE IDMS-TRACEABLE CREATININE METHODS.https://jasn.asnjournals.org/content//A SN.2894510796 Provider Note - ED v3on 04-2 Provider Note - ED v3 Provider Note: [...] made to minimize errors. Minor errors in operations engineer may be present. Please call if questions.. [...] Immature G (more content not included)... Normal [facility] Risk Screen - Adult Emergenc yon [...] Learning Preferencesverbal instruction Cultural Considerationsnone Developmental Considerationsnone Protestant Considerationsnone Learning Assessment (Other Learner): Learning Assessment (Other Learner): Other learner availableno Pressure Injury/TB/Substance: Pressure Injury: Pressure Injury Present on Admissionno Do you have a coughno Smoking Statusnever smoker Alcohol Useoccasionally Drug Usedenies Admission Risk Screen: Significant IndicatorsComplete CAGE: CAGE: Is this an injured patient at a Trauma Center ([facility]/Nicole/Sammie/[place] /[place]oyle): no Electronic Signatures: Carmen Silva (RN) (Signed 19-Nov-2022 17:05) Authored: Preferred Language, Patient Preferred Pharmacy, Advanced Directives, Family Violence Adult, Learning Assessment (Patient), Learning Assessment (Other Learner), Pressure Injury/TB/Substance, Pressure Injury, CAGE Last Updated: 19-Nov-2022 17:05 by Carmen Silva (RN) [facility] Triage - EDon 11-19-2022 Triage - [...] Accompanied By: self Language: Spoken Language Preferred: Egyptian CHIEF COMPLAINT KM HUNT is a Female [...] obeys commands Best Verbal Response: (V5) oriented [place] Score: 15 Allergies: yes Mask applied: yes [...] Medical History Reviewedyes Electronic Signatures: Carmen Silva (RN) (Signed 19-Nov-2022 17:04) Entered: Risk Screens, Pain, Arrival, ABCD, Travel History, Chart Review, Scores, Past Medical History Authored: Quick Triage, Risk Screens, Pain, Arrival, ABCD, Travel History, Chart Review, Scores, Past Medical History Last Updated: 19-Nov-2022 17:04 by Carmen Silva (RN) Normal [facility] URINALYSIS WITH CULTURE IF I NDICATEDon 11-19-2022 Appearance (U) CLEAR Normal CLEAR [facility] Comment on above: Performed By: #### U ARFX #### [address] [address] Bilirubin Ql (U) Negative Normal NEGATIVE [facility] Comment on above: Performed By: #### U ARFX #### [address] [address] Color (U) Colorless Normal STRAW,YELLOW [facility] Comment on above: Performed By: #### U ARFX #### [address] [address] Glucose Ql (U) Negative Normal NEGATIVE [facility] Comment on above: Performed By: #### U ARFX #### [address] [address] Hemoglobin Ql (U) Negative Normal NEGATIVE [facility] Comment on above: Performed By: #### U ARFX #### [place] [address] Ketones Ql (U) 5(TRACE) Abnormal NEGATIVE [facility] Comment on above: Performed By: #### U ARFX #### [address] [address] Leukocyte esterase Test strip Ql (U) Negative Normal NEGATIVE [facility] Comment on above: Performed By: #### U ARFX #### [address] [address] Nitrite Ql (U) Negative Normal NEGATIVE [facility] Comment on above: Performed By: #### U ARFX #### [place] [address] pH (U) 7.0 [pH] Normal 5.0 - 8.0 [facility] Comment on above: Performed By: #### U ARFX #### [place] [address] Protein Ql (U) Negative Normal NEGATIVE [facility] Comment on above: Performed By: #### U ARFX #### [place] [address] Specific gravity (U) [Rel density] 1.004 Low 1.005 - 1.035 [facility] Comment on above: Performed By: #### U ARFX #### [place] [address] Urobilinogen (U) [Mass/Vol] mg/dL Normal 0.0 - 1.9 [facility] Comment on above: Performed By: #### U ARFX #### [address] [address] Color (U) Colorless See Below [facility] [address] [employer] Work Phone: [phone] Comment on above: Reference Range: STR AW,YELLOW Glucose Ql (U) Negative NEGATIVE [facility] [address] [employer] Work Phone: [phone] Ketones Ql (U) 5(TRACE) Abnormal NEGATIVE [facility] [address] Work Phone: [phone] Leukocyte esterase Test strip Ql (U) Negative NEGATIVE [facility] [address] [employer] Work Phone: [phone] pH (U) 7.0 [pH] 5.0 - 8.0 [facility] [address] [employer] Work Phone: [phone] Protein (U) [Mass/Vol] Negative NEGATIVE [facility] [employer] Work Phone: [phone] RBC (U) [#/Vol] Negative NEGATIVE [facility] [employer] Work Phone: [phone] Specific gravity (U) [Rel density] 1.004 1 below low threshold See Below [facility] [employer] Work Phone: [phone] Comment on above: Reference Range: 1.0 05 - 1.035 URINALYSIS WITH CULTURE IF INDICATED Negative NEGATIVE [facility] [employer] Work Phone: [phone] URINALYSIS WITH CULTURE IF INDICATED <2.0 0.0 - 1.9 [facility] [employer] Work Phone: [phone] URINALYSIS WITH CULTURE IF INDICATED CLEAR CLEAR [facility] [employer] Work Phone: [phone] Urine Teston 11-19 HCG ( test) Ql (U) Negative Negative [facility] [employer] Work Phone: [phone] CORONAVIRUS 2019 BY PCRon SARS-CoV-2 (COVID-19) RNA SHANAE+probe Ql (Unsp spec) Not detected Normal Not Detected [facility] Comment on above: Result Comment: . This assay is designed to detect the ORF1a/b and E genes of SARS-CoV-2 via nucleic acid amplification. A Not Detected result does not preclude 2019-nCoV infection since the adequacy of sample collection and/or low viral burden may result in presence of viral nucleic acids below the clinical sensitivity of this test method. Fact sheet for providers: https://www.fda.gov/media/359297/download Fact sheet for patients: https://www.fda.gov/media/410415/download This test has received FDA Emergency Use Authorization (EUA) and has been verified for use by [facility] ([facility]). This test is only authorized for the duration of time that circumstances exist to justify the authorization of the emergency use of in vitro diagnostic tests for the detection of SARS-CoV-2 virus and/or diagnosis of COVID-19 infection under section 564(b)(1) of the Act, 21 U.S.C. 360bbb-3(b)(1), unless the authorization is terminated or revoked sooner. [facility] is certified under CLIA-88 as qualified to perform high complexity testing. Testing is performed in the [facility] laboratories located at [address] [place] [address]. Performed By: #### C OV19 #### [place] [address] GROUP A STREP,PCRon 11-02-19 23 GROUP A STREP,PCR Not detected Normal Not Detected [facility] Comment on above: Result Comment: This test and its performance have been Validated by [facility] Laboratory using analyte specific reagents (ASR). It has not been cleared or approved by the U.S. Food and Drug Administration. The FDA has determined that such clearance or approval is not necessary. Performed By: #### G APC1 #### [place] [address] CORONAVIRUS 2019 BY PCRon Lab Specimen Source Nasal, Nasopharyngeal Normal [facility] Comment on above: Performed By: #### C OV19 #### [place] [address] Coronavirus 2019 RNA by PCR, Symptomaticon 10-31-2022 Coronavirus 2019 RNA by PCR, Symptomatic Not detected Normal See Below [facility] [address] [employer] Work Phone: Comment on above: SOURCE: Nasal, [...] this test method. Fact sheet for providers: https://www.fda.gov/media/756380/download Fact sheet for patients: https://www.fda.gov/media/029126/download This test has received FDA Emergency Use Authorization (EUA) and has been verified for use by [facility] ([facility]). This test is only authorized for the duration of time that circumstances exist to justify the authorization of the emergency use of in vitro diagnostic tests for the detection of SARS-CoV-2 virus and/or diagnosis of COVID-19 infection under section 564(b)(1) of the Act, 21 U.S.C. 360bbb-3(b)(1), unless the authorization is terminated or revoked sooner.[facility] is certified under CLIA-88 as qualified to perform high complexity testing. Testing is performed in the [facility] laboratories located at [address] [place] [address]. GROUP A STREP, PCRon 023 S. pyogenes Ag Ql (Throat) Not detected See Below [facility] [employer] Work Phone: Comment on above: SOURCE: ThroatRefere nce Range: Not Detected This test and its performance have been Validated by [facility] Laboratory using analyte specific reagents (ASR). It has not been cleared or approved by the U.S. Food and Drug Administration. The FDA has determined that such clearance or approval is not necessary. GROUP A STREP,PCRon 11-01-19 23 Lab Specimen Source Throat Normal [facility] Comment on above: Performed By: #### G APC1 #### [facility] [id number] [place] [address]. [place] [address] Provider Note - ED v3on 04-0 Provider Note - ED v3 Provider Note: [...] SIGNS: T PRBP SpO2O2(LPM) %FiO2 Method 31-Oct-2022 08:57:[id number] 98 MDM MDM/ED COURSE: This note was [...] taking Tylenol with some relief; no other xowy-nyu-jlhzgbb medications or home remedies for symptom management. [...] Musculoskeletal: Grossly normal; appropriate for age. Integumentary: [place], warm, dry, and intact. No rashes or skin discoloration appreciated. Good skin turgor. Neurologic: Alert and oriented, no gross deficits. Cognition and Speech: Oriented, Speech clear and coherent. Psychiatric: Cooperative, Appropriate mood & affect. MEDICA (more content not included)... Normal [facility] Office Visit (Internal Medic ine)on 09-21-2022 Follow-up visit Diagnoses/Problems Assessed Anxiety and depression (300.00,311) (F41.9,F32.A) Orders Anxiety and depression Start: Venlafaxine HCl - 37.5 MG Oral Tablet; take one tab po daily x1 week take one tab po bid thereafter Rx By: Sukh Pollock; Dispense: 0 Days ; #:60 Tablet; Refill: 1;For: Anxiety and depression; JAREK = N; Verified Transmission to [facility]; Last Updated By: [facility]; 09/21/2022 2:56:11 PM Asthma Renew: Levalbuterol Tartrate 45 MCG/ACT Inhalation Aerosol; TAKE 1 PUFF BY MOUTH EVERY 4 HOURS NEEDED Rx By: Sukh Pollock; Dispense: 0 Days ; #:1 X 15 GM Inhaler; Refill: 3;For: Asthma; JAREK = N; Sent To: [facility]; Last Updated By: Dejan Strange; 09/21/2022 2:51:28 PM Seasonal allergies Renew: Montelukast Sodium 10 MG Oral Tablet; take 1 tablet by mouth at bedtime Rx By: Sukh Pollock; Dispense: 30 Days ; #:30 Tablet; Refill: 5;For: Seasonal allergies; JAREK = N; Verified Transmission to [facility]; Last Updated By: [facility]; 09/21/2022 2:56:13 PM Patient Discussion/Summary Anxiety and [...] MCG/INH AEPBINHA (more content not included)... Normal [facility] Tobacco Screening.on 023 Adult depression screening assessment Yes [facility] Work Phone: Fall risk assessment a) No falls within the last year [facility] Work Phone: Tobacco use status [facility] b) No [facility] Work Phone: Office Visit (Internal Medic ine)on 07-02-2022 Follow-up visit Diagnoses/Problems Assessed Anxiety and depression (300.00,311) (F41.9,F32.A) Idiopathic urticaria (708.1) (L50.1) Candidiasis of vagina (112.1) (B37.31) Orders Anxiety and depression Start: buPROPion HCl ER (SR) 150 MG Oral Tablet Extended Release 12 Hour; Take 1 tablet twice daily Rx By: Sukh Pollock; Dispense: 30 Days ; #:60 Tablet; Refill: 11; For: Anxiety and depression; JRAEK = N; Verified Transmission to [facility]; Last Updated By: [facility]; 07/02/2022 8:39:04 AM Candidiasis of vagina Start: Fluconazole 150 MG Oral Tablet; TAKE 1 TABLET 1 TIME ONLY Rx By: Sukh Pollock; Dispense: 0 Days ; #:1 Tablet; Refill: 1; For: Candidiasis of vagina; JAREK = N; [facility] Idiopathic urticaria Start: Famotidine 20 MG Oral Tablet (Pepcid); TAKE 1 TABLET EVERY 12 HOURS DAILY Rx By: Sukh Pollock; Dispense: 7 Days ; #:14 Tablet; Refill: 1; For: Idiopathic urticaria; JAREK = N; [facility]ified [facility]; Last Updated By: [facility]; 07/02/2022 8:39:03 AM Start: predniSONE 20 MG Oral Tablet; TAKE 1 TABLET TWICE DAILY Rx By: Sukh Pollock; Dispense: 7 Days ; #:14 Tablet; Refill: 1; For: Idiopathic urticaria; JAREK = N; [facility]; Last Updated By: [facility]; 07/02/2022 8:39:04 AM Administer: methylPREDNISolone Sodium Succ [...] tolerated well and offered no complaints. LOT# [id number] EXP 09/2022 [facility] [id number] 1 Amended By: Dejan Strange; Jul 02 [...] Family h (more content not included)... Normal [facility] Office Visit (Internal Medic ine)on 05-21-2022 Follow-up visit Diagnoses/Problems Assessed Anxiety and depression (300.00,311) (F41.9,F32.A) Panic attacks (300.01) (F41.0) Orders Panic attacks Start: Sertraline HCl - 50 MG Oral Tablet; take 1 tablet by mouth once daily Rx By: Sukh Pollock; Dispense: 30 Days ; #:30 Tablet; Refill: 11;For: Panic attacks; JAREK = N; [facility]; Last Updated By: System, [employer]; 05/21/2022 4:39:06 PM Patient Discussion/Summary Anxiety and [...] 21May2022 04:2 (more content not included)... Normal [employer] Tobacco Screening.on 022 Adult depression screening assessment No [facility] Work Phone: Fall risk assessment a) No falls within the last year [facility] Work Phone: Tobacco use status [facility] a) Yes [facility] Work Phone: Office Visit (Internal Medic ine)on 04-22-2022 Follow-up visit Diagnoses/Problems Assessed Anxiety and depression (300.00,311) (F41.9,F32.A) Panic attacks (300.01) (F41.0) Psychophysiological insomnia (307.42) (F51.04) Orders Anxiety and depression Start: FLUoxetine HCl - 10 MG Oral Tablet; TAKE 1 TABLET DAILY Rx By: Sukh Pollock; Dispense: 30 Days ; #:30 Tablet; Refill: 11;For: Anxiety and depression; JAREK = N; Verified Transmission to [facility] 8455; Last Updated By: System, [employer]; 04/22/2022 4:57:42 PM Panic attacks Start: ALPRAZolam 1 MG Oral Tablet; 1/2 or 1 tab bid prn panick attacks Rx By: Sukh Pollock; Dispense: 5 Days ; #:10 Tablet; Refill: 0;For: Panic attacks; JAREK = N; Verified Transmission to [facility] 1448; Msg to Pharmacy: F41.0; Last Updated By: [facility]; 04/22/2022 4:57:26 PM Psychophysiological insomnia Start: traZODone HCl - 50 MG Oral Tablet; take 1/2 or 1 tablet qhs for insomnia Rx By: Sukh Pollock; Dispense: 0 Days ; #:30 Tablet; Refill: 5;For: Psychophysiological insomnia; JAREK = N; [facility]; Last Updated By: [facility]; 04/22/2022 4:57:33 PM Patient Discussion/Summary Anxiety and [...] and staying asleep. Patient is attempted several kbzg-syy-jjavixg remedies without improvement. Patient states there is [...] (V16.9) (Z80 (more content not included)... Normal [facility] Tobacco Screening.on 022 Adult depression screening assessment No [facility] Work Phone: [phone] Fall risk assessment a) No falls within the last year [facility] Work Phone: [phone] [facility] b) No [facility] Work Phone: Tobacco Screening.on Fall risk assessment a) No falls within the last year [facility] [employer] DO Work Phone: Tobacco use status [facility] b) No [facility] [employer] DO Work Phone: [phone] Complete Blood Count + Priscilla gilman 01-28-2022 Basophils/100 WBC (Bld) 0.4 % 0.0 - 2.0 [facility] DO Work Phone: [phone] Erythrocyte distribution width (RBC) [Ratio] 12.8 % See Below [place] [address] DO Work Phone: [phone] Comment on above: Reference Range: 11. 5 - 14.5 Hematocrit (Bld) [Volume fraction] 39.9 % See Below [facility] DO Work Phone: [phone] Comment on above: Reference Range: 36. 0 - 46.0 Hemoglobin (Bld) [Mass/Vol] 14.2 g/dL See Below [facility] DO Work Phone: Comment on above: Reference Range: 12. 0 - 16.0 Lymphocytes/100 WBC (Bld) 31.6 % See Below [facility] [address] DO Work Phone: [phone] Comment on above: Reference Range: 13. 0 - 44.0 MCHC (RBC) [Mass/Vol] 35.6 g/dL See Below [facility]- [facility] 400 DO Work Phone: [phone] Comment on above: Reference Range: 32. 0 - 36.0 MCV (RBC) [Entitic vol] 88 fL 80 - 100 [facility] 400 DO Work Phone: [phone] Monocytes/100 WBC (Bld) 5.7 % 2.0 - 10.0 [facility] 400 DO Work Phone: [phone] Neutrophils/100 WBC (Bld) 60.0 % See Below [facility] 400 DO Work Phone: [phone] Comment on above: Reference Range: 40. 0 - 80.0 Platelets (Bld) [#/Vol] 184 10*3/uL 150 - 450 [facility] 400 DO Work Phone: [phone] RBC (Bld) [#/Vol] 4.56 {x10E12/L} See Below [facility] 400 DO Work Phone: [phone] Comment on above: Reference Range: 4.0 0 - 5.20 WBC (Bld) [#/Vol] 7.2 10*3/uL 4.4 - 11.3 [facility]ul [facility] 400 DO Work Phone: [phone] Complete Blood Count + Differential 0.00 {x10E9/L} See Below [facility] 400 DO Work Phone: [phone] Comment on above: Reference Range: 0.0 0 - 0.10 Complete Blood Count + Differential 0.20 {x10E9/L} See Below [facility] 400 DO Work Phone: [phone] Comment on above: Reference Range: 0.0 0 - 0.70 Complete Blood Count + Differential 0.40 {x10E9/L} See Below [facility] [address] DO Work Phone: [phone] Comment on above: Reference Range: 0.1 0 - 1.00 Complete Blood Count + Differential 2.30 {x10E9/L} See Below [facility] [address] DO Work Phone: [phone] Comment on above: Reference Range: 1.2 0 - 4.80 Complete Blood Count + Differential 4.30 {x10E9/L} See Below [facility] 400 DO Work Phone: [phone] Comment on above: Reference Range: 1.2 0 - 7.70 Percent differential counts (%) should be interpreted in the context of the absolute cell counts (cells/L). Complete Blood Count + Differential 2.3 % 0.0 - 6.0 [facility] 400 DO Work Phone: [phone] Complete Blood Count + Differential 0.1 {/100_WBC} [facility] DO Work Phone: [phone] Laboratory - Allergyon 01-28 A. alternata IgE Qn (S) <0.10 <0.35 [facility] 400 DO Work Phone: [phone] Comment on above: SEE IMMUNOCAP INTERP .IGE A. fumigatus IgE Qn (S) <0.10 <0.35 [facility] 400 DO Work Phone: [phone] Comment on above: SEE IMMUNOCAP INTERP .IGE Palauan house dust mite IgE Qn (S) 4.41 {KU/L} Abnormal <0.35 [facility] 400 DO Work Phone: [phone] Comment on above: SEE IMMUNOCAP INTERP .IGE [place] IgE Qn (S) <0.10 <0.35 [facility] 400 DO Work Phone: [phone] Comment on above: SEE IMMUNOCAP INTERP .IGE B[place] grass IgE Qn (S) 0.10 {KU/L} <0.35 [facility] 400 DO Work Phone: [phone] Comment on above: SEE IMMUNOCAP INTERP .IGE Boxelder IgE Qn (S) <0.10 <0.35 [facility] 400 DO Work Phone: [phone] Comment on above: SEE IMMUNOCAP INTERP .IGE C. herbarum IgE Qn (S) <0.10 <0.35 [facility] 400 DO Work Phone: [phone] Comment on above: SEE IMMUNOCAP INTERP .IGE [place] IgE Qn (S) <0.10 <0.35 [facility] 400 DO Work Phone: [phone] Comment on above: SEE IMMUNOCAP INTERP .IGE Cat dander IgE Qn (S) 0.82 {KU/L} Abnormal <0.35 [facility] 400 DO Work Phone: [phone] Comment on above: SEE IMMUNOCAP INTERP .IGE Cockroach IgE Qn (S) <0.10 <0.35 [facility] 400 DO Work Phone: [phone] Comment on above: SEE IMMUNOCAP INTERP .IGE Common Pigweed IgE Qn (S) <0.10 <0.35 [facility] 400 DO Work Phone: [phone] Comment on above: SEE IMMUNOCAP INTERP .IGE Mobile IgE Qn (S) <0.10 <0.35 [facility] 400 DO Work Phone: [phone] Comment on above: SEE IMMUNOCAP INTERP .IGE Dog dander IgE Qn (S) 0.20 {KU/L} <0.35 [facility] 400 DO Work Phone: [phone] Comment on above: SEE IMMUNOCAP INTERP .IGE Egyptian plantain IgE Qn (S) <0.10 <0.35 [facility] 400 DO Work Phone: [phone] Comment on above: SEE IMMUNOCAP INTERP .IGE house dust mite IgE Qn (S) 3.53 {KU/L} Abnormal <0.35 [facility] 400 DO Work Phone: [phone] Comment on above: SEE IMMUNOCAP INTERP .IGE Goosefoot IgE Qn (S) <0.10 <0.35 [facility] 400 DO Work Phone: Comment on above: SEE IMMUNOCAP INTERP .IGE Maximus grass IgE Qn (S) 0.17 {KU/L} <0.35 [facility] 400 DO Work Phone: Comment on above: SEE IMMUNOCAP INTERP .IGE [place] blue grass IgE Qn (S) 2.98 {KU/L} Abnormal <0.35 [facility] 400 DO Work Phone: [phone] Comment on above: SEE IMMUNOCAP INTERP .IGE Mountain [place] IgE Qn (S) <0.10 <0.35 [facility] 400 DO Work Phone: Comment on above: SEE IMMUNOCAP INTERP .IGE P. notatum IgE Qn (S) <0.10 <0.35 [facility] 400 DO Work Phone: [phone] Comment on above: SEE IMMUNOCAP INTERP .IGE Pecan or [place] Tree IgE Qn (S) 0.21 {KU/L} <0.35 [facility] DO Work Phone: [phone] Comment on above: SEE IMMUNOCAP INTERP .IGE Saltwort IgE Qn (S) <0.10 <0.35 [facility] 400 DO Work Phone: [phone] Comment on above: SEE IMMUNOCAP INTERP .IGE Sheep [place] [facility] IgE Qn (S) <0.10 <0.35 [facility] 400 DO Work Phone: [phone] Comment on above: SEE IMMUNOCAP INTERP .IGE Silver [place]ch IgE Qn (S) <0.10 <0.35 [facility] 400 DO Work Phone: Comment on above: SEE IMMUNOCAP INTERP .IGE Sb IgG Qn (S) 2.74 {KU/L} Abnormal <0.35 [facility] [facility] 400 DO Work Phone: Comment on above: SEE IMMUNOCAP INTERP .IGE Total IgE RAST Qn (S) 55.0 {KU/L} See Below [facility] [facility] 400 DO Work Phone: Comment on above: Reference Range: 0.0 - 214.0 Note: Omalizumab (Xolair, Genentech; humanized IgG1 antihuman IgE Fc) treatment does not significantly interfere with the accuracy of total IgE on the ImmunoCAP (Loku) platform. J Allergy Clin Immunol 2006;117:759-66). Allergens, parasitic diseases, smoking, and alcohol consumption have been reported to increase levels of total IgE in serum. White [place] IgE Qn (S) <0.10 <0.35 [facility] [facility] 400 DO Work Phone: Comment on above: SEE IMMUNOCAP INTERP .IGE [place] IgE Qn (S) <0.10 <0.35 [facility] [facility] 400 DO Work Phone: Comment on above: SEE IMMUNOCAP INTERP .IGE White mulberry IgE Qn (S) <0.10 <0.35 -[facility] 400 DO Work Phone: Comment on above: SEE IMMUNOCAP INTERP .IGE [place] IgE Qn (S) <0.10 <0.35 [facility] 400 DO Work Phone: Comment on above: SEE IMMUNOCAP INTERP .IGE No Panel Informationon 01-28 SEE COMMENT [facility] DO Work Phone: Comment on above: REFERENCE RANGE (IMM UNOCAP) IGE KU/L CLASS INTERPRETATION < 0.10 0 BELOW DETECTION 0.10- 0.34 0/1 EQUIVOCAL 0.35- 0.69 1 LOW POSITIVE 0.70- 3.49 2 MODERATE POSITIVE 3.50- 17.49 3 HIGH YLAJYJAO49.50- 49 4 VERY HIGH EUJGTTZH48 - 99 5 VERY HIGH POSITIVE >100 6 VERY HIGH POSITIVE 2.79 {KU/L} Abnormal <0.35 -[facility]ulmonary [facility] [facility] DO Work Phone: Comment on above: SEE IMMUNOCAP INTERP .IGE Tobacco Screening.on 022 Fall risk assessment a) No falls within the last year -[facility] [facility] 400 DO Work Phone: [phone] Tobacco use status [facility] b) No [facility] 400 DO Work Phone: [phone] No Panel Informationon 01-19 Please click on the link to view the study images Normal [facility] [employer] Work Phone: [phone] Normal [facility] [address] [place] Work Phone: [phone] Cult, Genitalon 01-14-2022 Bacteria identified Aer cx Nom (Genital specimen) [facility] [address] Work Phone: [phone] Cult, Urineon 01-14-2022 Bacteria identified Cx Nom (U) [facility] [employer] Work Phone: [phone] GC + Chlamydia By Amplified Detectionon 01-14-2022 C. trachomatis rRNA SHANAE+probe Ql (Unsp spec) Negative Negative [facility] [employer] Work Phone: [phone] Comment on above: The APTIMA Combo 2 a ssay is FDA-approved for Chlamydia trachomatis and Neisseria gonorrhoeae testing on female endocervical and vaginal swabs, ThinPrep liquid pap samples, male urine samples and urethral swabs. Performance characteristics for Chlamydia trachomatis and Neisseria gonorrhoeae testing on specific wqf-NTZ-ndpjwhyw sample types (female urine samples) have been validated by [facility]. This laboratory is certified by CLIA to perform high complexity testing. Samples from all other sites are not validated for this method. N. gonorrhoeae rRNA SHANAE+probe Ql (Unsp spec) Negative Negative [facility] [employer] Work Phone: [phone] Comment on above: SOURCE: Urine The AP MADI Combo 2 assay is FDA-approved for Chlamydia trachomatis and Neisseria gonorrhoeae testing on female endocervical and vaginal swabs, ThinPrep liquid pap samples, male urine samples and urethral swabs. Performance characteristics for Chlamydia trachomatis and Neisseria gonorrhoeae testing on specific wyj-DPR-fqrxlqak sample types (female urine samples) have been validated by [facility]. This laboratory is certified by CLIA to perform high complexity testing. Samples from all other sites are not validated for this method. LMPon 01-14-2022 Last menstrual period start date 09Jan2022 [facility] [address] Work Phone: [phone] Laboratory - Cytologyon 12-31 Cytology report Cyto stain.thin prep Doc (Cvx/Vag) [facility] [address] Work Phone: [phone] Abdomen and Pelvis with I V Contraston 01-01-2022 CT Abdomen and Pelvis W contrast IV Please click on the link to view the study images Normal [facility] Work Phone: [phone] CT Abdomen and Pelvis W contrast IV Normal [facility] [address] Work Phone: [phone] Laboratory - Chemistry and C hemistry - challengeon 12-31-2021 Albumin BCP dye [Mass/Vol] 4.4 g/dL 3.4 - 5.0 [facility] Work Phone: [phone] ALP [Catalytic activity/Vol] 54 U/L 33 - 110 [facility] Work Phone: [phone] ALT With P-5'-P [Catalytic activity/Vol] 18 U/L 7 - 45 [facility] Work Phone: [phone] Comment on above: Patients treated wit h Sulfasalazine may generate falsely decreased results for ALT. Anion gap [Moles/Vol] 12 mmol/L 10 - 20 [facility] Work Phone: [phone] AST With P-5'-P [Catalytic activity/Vol] 16 U/L 9 - 39 [facility] Work Phone: [phone] Bilirubin [Mass/Vol] 0.4 mg/dL 0.0 - 1.2 [facility] Work Phone: [phone] Calcium [Mass/Vol] 9.2 mg/dL 8.6 - 10.3 [facility] Work Phone: [phone] Chloride [Moles/Vol] 105 mmol/L 98 - 107 [facility] Work Phone: [phone] CO2 [Moles/Vol] 25 mmol/L 21 - 32 [facility] Work Phone: [phone] Creatinine [Mass/Vol] 0.71 mg/dL See Below [facility] Work Phone: [phone] Comment on above: Reference Range: 0.5 0 - 1.05 Glucose [Mass/Vol] 84 mg/dL 74 - 99 [facility] Work Phone: [phone] Potassium [Moles/Vol] 3.6 mmol/L 3.5 - 5.3 [facility] Work Phone: [phone] Protein [Mass/Vol] 7.0 g/dL 6.4 - 8.2 [facility] Work Phone: [phone] Sodium [Moles/Vol] 138 mmol/L 136 - 145 [facility] Work Phone: [phone] TSH Qn 1.47 m[IU]/L See Below [facility] Work Phone: [phone] Comment on above: Reference Range: 0.4 4 - 3.98 TSH testing is performed using different testing methodology at [facility] than at other [facility]. Direct result comparisons should only be made within the same method. Urea nitrogen [Mass/Vol] 16 mg/dL 6 - 23 [facility] Work Phone: [phone] Laboratory - Hematology and Cell countson 12-31-2021 Erythrocyte distribution width (RBC) [Ratio] 12.6 % See Below [facility] Work Phone: [phone] Comment on above: Reference Range: 11. 5 - 14.5 Hematocrit (Bld) [Volume fraction] 42.5 % See Below [facility] Work Phone: [phone] Comment on above: Reference Range: 36. 0 - 46.0 Hemoglobin (Bld) [Mass/Vol] 14.5 g/dL See Below [facility] Work Phone: [phone] Comment on above: Reference Range: 12. 0 - 16.0 MCHC (RBC) [Mass/Vol] 34.1 g/dL See Below [facility] Work Phone: [phone] Comment on above: Reference Range: 32. 0 - 36.0 MCV (RBC) [Entitic vol] 88 fL 80 - 100 [facility] Work Phone: [phone] Platelets (Bld) [#/Vol] 205 10*3/uL 150 - 450 [facility] Work Phone: [phone] RBC (Bld) [#/Vol] 4.81 {x10E12/L} See Below [facility] Work Phone: [phone] Comment on above: Reference Range: 4.0 0 - 5.20 WBC (Bld) [#/Vol] 6.7 10*3/uL 4.4 - 11.3 [facility] Work Phone: [phone] Lipid Panelon 12-31-2021 Cholesterol [Mass/Vol] 155 mg/dL 0 - 199 [facility] Work Phone: [phone] Comment on above: . AGE DESIRABLE [...] dosing. Cholesterol in HDL [Mass/Vol] 69.0 mg/dL [facility] Work Phone: [phone] Comment on above: . AGE VERY LOW LOW N ORMAL HIGH 0-19 Y < 35 < 40 40-45 ---- 20-24 Y ---- < 40 >45 ---- >24 Y ---- < 40 40-60 >60. Cholesterol in LDL [Mass/Vol] 74 mg/dL 0 - 119 [facility] Work Phone: [phone] Comment on above: . NEAR BORD AGE INA RABLE OPTIMAL HIGH HIGH VERY HIGH 0-19 Y 0 - 109 --- 110-129 >/= 130 ---- 20-24 Y 0 - 119 --- 120-159 >/= 160 ---- >24 Y 0 - 99 100-129 130-159 160-189 >/=190. Cholesterol.total/Chol esterol in HDL [Mass ratio] 2.2 {ratio} [facility] Work Phone: [phone] Comment on above: REF VALUESDESIRABLE < 3.4HIGH RISK > 5.0 Triglyceride [Mass/Vol] 60 mg/dL 0 - 149 [facility] Work Phone: [phone] Comment on above: . AGE DESIRABLE BORD [...] Lipid Panel 12 mg/dL 0 - 40 [facility] Work Phone: [phone] Panel Informationon 12-31 >90 >90 [facility] Work Phone: [phone] Comment on above: CALCULATIONS OF MCKENNA MATED GFR ARE PERFORMED USING THE 2020 CKD-EPI STUDY REFIT EQUATION WITHOUT THE RACE VARIABLE FOR THE IDMS-TRACEABLE CREATININE METHODS.https://jasn.asnjournals.org/content//[email or web address] Testosterone, Levelon 2021 Testosterone [Mass/Vol] ng/dL 0 - 70 [facility] Work Phone: Comment on above: Nandrolone decanoate , 11 Beta-hydroxytestosterone, androstenedione, testosterone propionate and 60-zyiw-axjpoyyaeysj strongly cross react with this test method. [...] Screening.on 022 Adult depression screening assessment No [facility] Work Phone: Fall risk assessment a) No falls within the last year [facility] Work Phone: Tobacco use status [facility]PH[facility] b) No [facility] Work Phone: INFLUENZA A/B, COVID 2019 PC R,SYMPTOMATICon 09-01-2021 Date and time of symptom onset [id number] [facility] Work Phone: INFLUENZA A/B, COVID 2019 PCR,SYMPTOMATIC Not detected See Below [facility] Work Phone: Comment on above: Reference Range: [...] make patient management decisions.Fact sheet for providers: https://www.fda.gov/media/614050/downloadFact sheet for patients: https://www.fda.gov/media/218332/downloadThis test has received FDA Emergency Use Authorization (EUA) and has been verified by [facility] ([facility]). This test is only authorized for the duration of time that circumstances exist to justify the authorization of the emergency use of in vitro diagnostic tests for the detection of SARS-CoV-2 virus and/or diagnosis of COVID-19 infection under section 564(b)(1) of the Act, 21 U.S.C. 360bbb-3(b)(1), unless the authorization is terminated or revoked sooner. [facility] is certified under CLIA-88 as qualified to perform high complexity testing. Testing is performed in the [facility] laboratories located at [address] [place] [address]. Reference Range: Not Detected Respiratory virus testing is performed routinely by PCR for Influenza A/B and RSV. If Influenza and RSV PCR are negative, testing for parainfluenza 1,2,3 viruses and adenovirus is routinely performed for oncology inpatients and intensive care unit patients at [facility] and is available on request on other patients by calling Laboratory Client Services at [phone] Not Detected results do not preclude Influenza [...] by the Microbiology Laboratory, Department of Pathology, [facility], [place], [place]. It has not been cleared or [...] inpatients and intensive care unit patients at [facility] and is available on request on other patients by calling Laboratory Client Services at [phone]. Not Detected results do not preclude Influenza A/B or RSV infections since the adequacy of sample collection or low viral burden may impact the clinical sensitivity of this test method. Tobacco Screening.on 022 Adult depression screening assessment No [facility] Work Phone: Fall risk assessment a) No falls within the last year [facility] Work Phone: Tobacco use status [facility] b) No [facility] Work Phone: Tobacco Screening.on 021 Fall risk assessment c) Not medically indicated [facility] Work Phone: Tobacco use status [facility] b) No [facility] Work Phone: Otheron 09-23-2019 XR Abdomen AP Interpreted by: SUMAN MCKNIGHT09/23/19 17:52MRN: [id number] Name: KM HUNT STUDY:ABDOMEN AP VIEW; 09/23/2019 [...] pattern.Electronically signed by: CHEIKH MCKNIGHT 09/23/19 17:52 [facility] [employer] Work Phone: Comment on above: Ordering Provider: Amara BERRY [id number] Cult, Urineon 09-20-2019 Bacteria identified Cx Nom (U) PATIENT: KM HUNT LOCATION: [facility]#: [id number] : 89 AGE: SEX: F ORDERED BY: REVA BAIN: URINE COLLECTED: 09/20/19 09:57ANTIBIOTICS AT TREVER.: RECEIVED : 09/20/19 17:49SITE: Clean Catch/Voided R E S U L T S URINE CULTURE,BACTERIAL FINAL 09/21/19 12:20 NO GROWTH [facility] [employer] Work Phone: Comment on above: Ordering Provider: Pamela BAIN [id number] C Urineon 12-24-2018 C Urine Final Report: Rare Normal skin juan daniel isolated Normal [facility] Comment on above: Performed By: #### 2 [id number] #### IRENE Microbiology Subsection [facility] [place] [address] UA Completeon 12-22-2018 Color (U) Yellow Normal Yellow [facility] Comment on above: Performed By: #### 8 [id number] #### IRENE Urinalysis Automated Subsection [address] [place] [address] Glucose (U) [Mass/Vol] Negative Normal Negative [facility] Comment on above: Performed By: #### 8 [id number] #### IRENE Urinalysis Automated Subsection [address] [place] [address] Ketones Ql (U) Negative Normal Negative [facility] Comment on above: Performed By: #### 8 [id number] #### IRENE Urinalysis Automated Subsection [address] [place] [address] RBC (U) [#/Vol] 0-3 Normal 0-3 [facility] Comment on above: Performed By: #### 8 [id number] #### IRENE Urinalysis Automated Subsection [facility] [place] [address] UA Blood Negative Normal Negative [facility] Comment on above: Performed By: #### 8 [id number] #### IRENE Urinalysis Automated Subsection [address] [place] [address] UA Bacteria Trace Abnormal None [facility] Comment on above: Performed By: #### 8 [id number] #### IRENE Urinalysis Automated Subsection [address] [place] [address] UA Clarity Clear Normal Clear [facility] Comment on above: Performed By: #### 8 [id number] #### IRENE Urinalysis Automated Subsection [facility] [place] [address] UA Leuk Est Negative Normal Negative [facility] Comment on above: Performed By: #### 8 [id number] #### IRENE Urinalysis Automated Subsection [facility] [place] [address] UA Nitrite Negative Normal Negative [facility] Comment on above: Performed By: #### 8 [id number] #### IRENE Urinalysis Automated Subsection [facility] [place] [address] UA pH 5.0 Normal 4.6-8.0 [facility] Comment on above: Performed By: #### 8 [id number] #### IRENE Urinalysis Automated Subsection [address] [place] [address] UA Protein Negative Normal Negative [facility] Comment on above: Performed By: #### 8 [id number] #### IRENE Urinalysis Automated Subsection [address] [place] [address] UA Spec Grav 1.016 Normal 1.003-1.030 [facility] Comment on above: Performed By: #### 8 [id number] #### IRENE Urinalysis Automated Subsection [address] [place] [address] UA Squam Epithelial 0-5 Normal 0-5 [facility] Comment on above: Performed By: #### 8 [id number] #### IRENE Urinalysis Automated Subsection [address] [place] [address] UA Urobilinogen Negative Normal [facility] Comment on above: Result Comment: Due to a manufacturing issue, low positive urobilinogen results may be fasely positive. Correlate with urine bilirubin and additional clinical/laboratory findings to assess the risk of hemolytic anemia or liver disease. If clinically indicated, repeat testing with an alternate method is available by contacting the laboratory within 24 hours. Performed By: #### 8 [id number] #### IRENE Urinalysis Automated Subsection [address] [place] [address] UA WBC 0-5 Normal 0-5 [facility] Comment on above: Performed By: #### 8 [id number] #### IRENE Urinalysis Automated Subsection [address] [place] [address] Urobilinogen Qn (U) Negative Normal Negative [facility] Comment on above: Performed By: #### 8 [id number] #### IRENE Urinalysis Automated Subsection [address] [place] [address] Vital Signs Date Time Vital Sign Value Performing Clinician Facility 05-17-2025 15:52-0400 Body height 152.4 cm Ayaka Selam SPOOL WORKER-C Work Phone: [facility] 05-17-2025 15:51-0400 Body mass index (BMI) [Ratio] 30.1 kg/m2 Ayaka Selam SPOOL WORKER-C Work Phone: [facility] 05-17-2025 15:51-0400 Body weight 70.02 kg Ayaka Selam SPOOL WORKER-C Work Phone: [facility] 05-17-2025 15:51-0400 Diastolic blood pressure 74 mm[Hg] Ayaka Selam SPOOL WORKER-C Work Phone: [facility] 05-17-2025 15:51-0400 Systolic blood pressure 111 mm[Hg] Ayaka Selam SPOOL WORKER-C Work Phone: [facility] 04-18-2025 08:21-0400 Body height 152.4 cm Ayaka Selam SPOOL WORKER-C Work Phone: [facility] 04-18-2025 08:21-0400 Body mass index (BMI) [Ratio] 28.6 kg/m2 Ayaka Selam SPOOL WORKER-C Work Phone: [facility] 04-18-2025 08:21-0400 Body weight 66.47 kg Ayaka Selam SPOOL WORKER-C Work Phone: [facility] 04-18-2025 08:21-0400 Diastolic blood pressure 70 mm[Hg] Ayaka Selam SPOOL WORKER-C Work Phone: [facility] 04-18-2025 08:21-0400 Systolic blood pressure 110 mm[Hg] Ayaka Selam SPOOL WORKER-C Work Phone: [facility] 03-19-2025 15:12-0400 Body height 152.4 cm Ayaka Selam SPOOL WORKER-C Work Phone: [facility] 03-19-2025 15:12-0400 Body mass index (BMI) [Ratio] 27.8 kg/m2 Ayaka Doss SPOOL WORKER-C Work Phone: [facility] 03-19-2025 15:12-0400 Body weight 64.58 kg Ayaka Doss SPOOL WORKER-C Work Phone: [facility] 03-19-2025 15:12-0400 Diastolic blood pressure 70 mm[Hg] Ayaka Doss SPOOL WORKER-C Work Phone: [facility] 03-19-2025 15:12-0400 Systolic blood pressure 103 mm[Hg] Ayaka Doss SPOOL WORKER-C Work Phone: [facility] 02-22-2025 09:25-0400 Body height 152.[address] Daniel Schneider DO Work Phone: [facility] 02-22-2025 09:25-0400 Body mass index (BMI) [Ratio] 26 kg/m2 Dr. Daniel Schneider DO Work Phone: [facility] 02-22-2025 09:25-0400 Body weight 60.[address] Daniel Schneider DO Work Phone: [facility] 02-22-2025 09:25-0400 Diastolic blood pressure 72 mm[Hg] Dr. Daniel Schneider DO Work Phone: [facility] 02-22-2025 09:25-0400 Systolic blood pressure 103 mm[Hg] Dr. Daniel Schneider DO Work Phone: [facility] 01-26-2025 13:35-0400 Body height 152.[address] Daniel Schneider DO Work Phone: [facility] 01-26-2025 13:35-0400 Body mass index (BMI) [Ratio] 25 kg/m2 Dr. Daniel Schneider DO Work Phone: [facility] 01-26-2025 13:35-0400 Body weight 58.[address] Daniel Schneider DO Work Phone: [facility] 01-26-2025 13:35-0400 Diastolic blood pressure 74 mm[Hg] Dr. Daniel Schneider DO Work Phone: 1(097)577-555007 [place] [address] 01-26-2025 13:35-0400 Systolic blood pressure 106 mm[Hg] Dr. Daniel Schneider DO Work Phone: 3(086)987-815707 [place] [address] 01-12-2025 09:14-0400 Body mass index (BMI) [Ratio] 24.4 kg/m2 Dr. Daniel Schneider DO Work Phone: 4(011)209-779107 [place] [address] 01-12-2025 09:14-0400 Body weight 56.[address] Daniel Schneider DO Work Phone: 0(992)865-706607 [place] [address] 01-12-2025 09:14-0400 Diastolic blood pressure 64 mm[Hg] Dr. Daniel Schneider DO Work Phone: 9(893)133-891407 [place] [address] 01-12-2025 09:14-0400 Systolic blood pressure 116 mm[Hg] Dr. Daniel Schneider DO Work Phone: 7(365)917-374907 [place] [address] 01-04-2025 10:44-0400 Body height 152.4 cm Johann Haines MD Work Phone: [facility] 01-04-2025 10:44-0400 Body mass index (BMI) [Ratio] 23.44 kg/m2 Johann Haines MD Work Phone: [facility] 01-04-2025 10:44-0400 Body weight 54.43 kg Johann Haines MD Work Phone: [facility] 01-04-2025 10:44-0400 Heart rate 73 /min Johann Haines MD Work Phone: [facility] 01-04-2025 10:44-0400 SaO2% (BldA) [Mass fraction] 98 % Johann Haines MD Work Phone: [facility] 11-23-2024 06:14-0400 Diastolic blood pressure 55 mm[Hg] Starr Torrez MD Work Phone: 1(933)192-040604 [place] [address] 11-23-2024 06:14-0400 Heart rate 75 /min Starr Torrez MD Work Phone: 6(930)982-959504 [place] [address] 11-23-2024 06:14-0400 Respiratory rate 20 /min Starr Torrez MD Work Phone: 9(230)994-016504 [place] [address] 11-23-2024 06:14-0400 SaO2% (BldA) [Mass fraction] 100 % Starr Torrez MD Work Phone: 7(926)286-490204 [place] [address] 11-23-2024 06:14-0400 Systolic blood pressure 98 mm[Hg] Starr Torrez MD Work Phone: 8(402)453-014704 [place] [address] 11-23-2024 01:54-0400 Body height 152.4 cm Starr Torrez MD Work Phone: 4(097)947-020604 [place] [address] 11-23-2024 01:52-0400 Body temperature 97.9 [degF] Starr Torrez MD Work Phone: 0(147)053-818904 [place] [address] 11-05-2024 17:28-0400 Diastolic blood pressure 71 mm[Hg] Dr. Daniel Schneider DO Work Phone: [facility] 11-05-2024 17:28-0400 Heart rate 91 /min Dr. Daniel Schneider DO Work Phone: [facility] 11-05-2024 17:28-0400 Respiratory rate 16 /min Dr. Daniel Schneider DO Work Phone: [facility] 11-05-2024 17:28-0400 SaO2% (BldA) [Mass fraction] 100 % Dr. Daniel Schneider DO Work Phone: [facility] 11-05-2024 17:28-0400 Systolic blood pressure 107 mm[Hg] Dr. Daniel Schneider DO Work Phone: [facility] 11-05-2024 16:32-0400 Body mass index (BMI) [Ratio] 23.8 kg/m2 Dr. Daniel Schneider DO Work Phone: [facility] 11-05-2024 16:32-0400 Body weight 55.[address] Daniel Schneider DO Work Phone: [facility] 11-05-2024 15:17-0400 Body height 152.[address] Daniel Schneider DO Work Phone: [facility] 11-05-2024 15:17-0400 Body temperature 97.4 [degF] Dr. Daniel Schneider DO Work Phone: [facility] 09-20-2024 14:45-0500 Body height 152.4 cm Ayaka Doss RATE SETTER-CONTINUOUS DRYOUT OPERATOR Work Phone: 1(907)028-625075 [place] [address] 09-20-2024 14:45-0500 Body mass index (BMI) [Ratio] 24.02 kg/m2 Ayaka Doss RATE SETTER-CONTINUOUS DRYOUT OPERATOR Work Phone: 5(679)494-236175 [place] [address] 09-20-2024 14:45-0500 Body temperature 97.5 [degF] Ayaka Rootman RATE SETTER-CONTINUOUS DRYOUT OPERATOR Work Phone: [facility] 09-20-2024 14:45-0500 Body weight 55.79 kg Ayaka Rootman RATE SETTER-CONTINUOUS DRYOUT OPERATOR Work Phone: [facility] 09-20-2024 14:45-0500 Diastolic blood pressure 73 mm[Hg] Ayaka Doss RATE SETTER-CONTINUOUS DRYOUT OPERATOR Work Phone: [facility] 09-20-2024 14:45-0500 Heart rate 89 /min Ayaka Rootman RATE SETTER-CONTINUOUS DRYOUT OPERATOR Work Phone: [facility] 09-20-2024 14:45-0500 Systolic blood pressure 109 mm[Hg] Ayaka Rootman RATE SETTER-CONTINUOUS DRYOUT OPERATOR Work Phone: [facility] 09-09-2024 09:12-0500 Body height 154 cm Evens Palacios RATE SETTER-CONTINUOUS DRYOUT OPERATOR Work Phone: [facility] 09-09-2024 09:12-0500 Body mass index (BMI) [Ratio] 22.95 kg/m2 Evens Ken RATE SETTER-CONTINUOUS DRYOUT OPERATOR Work Phone: [facility] 09-09-2024 09:12-0500 Body temperature 98.2 [degF] Evens Palacios RATE SETTER-CONTINUOUS DRYOUT OPERATOR Work Phone: [facility] 09-09-2024 09:12-0500 Body weight 54.43 kg Evens Ken RATE SETTER-CONTINUOUS DRYOUT OPERATOR Work Phone: [facility] 09-09-2024 09:12-0500 Diastolic blood pressure 73 mm[Hg] Evens Ken RATE SETTER-CONTINUOUS DRYOUT OPERATOR Work Phone: [facility] 09-09-2024 09:12-0500 Heart rate 98 /min Evens Palacios RATE SETTER-CONTINUOUS DRYOUT OPERATOR Work Phone: [facility] 09-09-2024 09:12-0500 SaO2% (BldA) [Mass fraction] 98 % Evens Palacios RATE SETTER-CONTINUOUS DRYOUT OPERATOR Work Phone: [facility] 09-09-2024 09:12-0500 Systolic blood pressure 106 mm[Hg] Evens Palacios RATE SETTER-CONTINUOUS DRYOUT OPERATOR Work Phone: [facility] 08-30-2024 16:51-0500 Body height 152.4 cm Ayaka Selam RATE SETTER-CONTINUOUS DRYOUT OPERATOR Work Phone: [facility] 08-30-2024 16:51-0500 Body mass index (BMI) [Ratio] 23.87 kg/m2 Ayaka Rootman RATE SETTER-CONTINUOUS DRYOUT OPERATOR Work Phone: [facility] 08-30-2024 16:51-0500 Body weight 55.43 kg Ayaka Doss RATE SETTER-CONTINUOUS DRYOUT OPERATOR Work Phone: [facility] 08-30-2024 16:51-0500 Diastolic blood pressure 82 mm[Hg] Ayaka Doss RATE SETTER-CONTINUOUS DRYOUT OPERATOR Work Phone: [facility] 08-30-2024 16:51-0500 Heart rate 67 /min Ayaka Doss RATE SETTER-CONTINUOUS DRYOUT OPERATOR Work Phone: [facility] 08-30-2024 16:51-0500 Systolic blood pressure 120 mm[Hg] Ayaka Doss RATE SETTER-CONTINUOUS DRYOUT OPERATOR Work Phone: [facility] 05-02-2024 11:44-0400 Body height 152.4 cm Evens Tamirenibenjamín RATE SETTER-CONTINUOUS DRYOUT OPERATOR Work Phone: [facility] 05-02-2024 11:44-0400 Body mass index (BMI) [Ratio] 23.44 kg/m2 Evens Tamirenik RATE SETTER-CONTINUOUS DRYOUT OPERATOR Work Phone: 2(212)584-666943 [place] [address] 05-02-2024 11:44-0400 Body temperature 98.8 [degF] Evens Tamirenik RATE SETTER-CONTINUOUS DRYOUT OPERATOR Work Phone: 6(844)539-379443 [place] [address] 05-02-2024 11:44-0400 Body weight 54.43 kg Evens Tamirenibenjamín RATE SETTER-CONTINUOUS DRYOUT OPERATOR Work Phone: [facility] 05-02-2024 11:44-0400 Diastolic blood pressure 75 mm[Hg] Evens Garnettenibenjamín RATE SETTER-CONTINUOUS DRYOUT OPERATOR Work Phone: [facility] 05-02-2024 11:44-0400 Heart rate 90 /min Evens Garnettenibenjamín RATE SETTER-CONTINUOUS DRYOUT OPERATOR Work Phone: [facility] 05-02-2024 11:44-0400 Respiratory rate 18 /min vEens Tamirenik RATE SETTER-CONTINUOUS DRYOUT OPERATOR Work Phone: [facility] 05-02-2024 11:44-0400 SaO2% (BldA) [Mass fraction] 95 % Evens Tamirenik RATE SETTER-CONTINUOUS DRYOUT OPERATOR Work Phone: [facility] 05-02-2024 11:44-0400 Systolic blood pressure 108 mm[Hg] Evens Palacios RATE SETTER-CONTINUOUS DRYOUT OPERATOR Work Phone: [facility] 04-28-2024 12:45-0400 Diastolic blood pressure 79 mm[Hg] Jayden Taylor MD Work Phone: [facility] 04-28-2024 12:45-0400 Heart rate 83 /min Jayden Taylor MD Work Phone: [facility] 04-28-2024 12:45-0400 Respiratory rate 16 /min Jayden Taylor MD Work Phone: [facility] 04-28-2024 12:45-0400 SaO2% (BldA) [Mass fraction] 100 % Jayden Taylor MD Work Phone: [facility] 04-28-2024 12:45-0400 Systolic blood pressure 116 mm[Hg] Jayden Taylor MD Work Phone: [facility] 04-28-2024 10:03-0400 Body temperature 97.3 [degF] Jayden Taylor MD Work Phone: [facility] 04-28-2024 06:23-0400 Body mass index (BMI) [Ratio] 23.44 kg/m2 Jayden Taylor MD Work Phone: [facility] 04-28-2024 06:23-0400 Body weight 54.43 kg Jayden Taylor MD Work Phone: [facility] 12-22-2023 14:49-0400 Body height 153 cm Jayden Taylor MD Work Phone: [facility] 12-22-2023 14:49-0400 Body mass index (BMI) [Ratio] 23.25 kg/m2 Jayden Taylor MD Work Phone: [facility] 12-22-2023 14:49-0400 Body weight 54.43 kg Jayden Taylor MD Work Phone: [facility] 10-29-2023 14:18-0400 Body height 153 cm Jameel Hernandez MD Work Phone: [facility] 10-29-2023 14:18-0400 Body mass index (BMI) [Ratio] 23.37 kg/m2 Jameel Hernandez MD Work Phone: [facility] 10-29-2023 14:18-0400 Body weight 54.7 kg Jameel Hernandez MD Work Phone: [facility] 10-29-2023 14:18-0400 Diastolic blood pressure 68 mm[Hg] Jameel Hernandez MD Work Phone: [facility] 10-29-2023 14:18-0400 Systolic blood pressure 124 mm[Hg] Jameel Hernandez MD Work Phone: [facility] 10-14-2023 11:50-0400 Diastolic blood pressure 58 mm[Hg] Jameel Hernandez MD Work Phone: [facility] 10-14-2023 11:50-0400 Heart rate 70 /min Jameel Hernandez MD Work Phone: [facility] 10-14-2023 11:50-0400 Respiratory rate 16 /min Jameel Hernandez MD Work Phone: [facility] 10-14-2023 11:50-0400 SaO2% (BldA) [Mass fraction] 97 % Jameel Hernandez MD Work Phone: [facility] 10-14-2023 11:50-0400 Systolic blood pressure 100 mm[Hg] Jameel Hernandez MD Work Phone: [facility] 10-14-2023 11:05-0400 Body temperature 97.59 [degF] Jameel Hernandez MD Work Phone: [facility] 10-14-2023 07:32-0400 Body height 153 cm Jameel Hernandez MD Work Phone: [facility] 10-14-2023 07:32-0400 Body mass index (BMI) [Ratio] 23.11 kg/m2 Jameel Hernandez MD Work Phone: [facility] 10-14-2023 07:32-0400 Body weight 54.1 kg Jameel Hernandez MD Work Phone: [facility] 09-24-2023 14:18-0500 Body height 152.4 cm Jameel Hernandez MD Work Phone: [facility] 09-24-2023 14:18-0500 Body mass index (BMI) [Ratio] 23.98 kg/m2 Jameel Hernandez MD Work Phone: [facility] 09-24-2023 14:18-0500 Body weight 55.7 kg Jameel Hernandez MD Work Phone: [facility] 09-24-2023 14:18-0500 Diastolic blood pressure 64 mm[Hg] Jameel Hernandez MD Work Phone: [facility] 09-24-2023 14:18-0500 Systolic blood pressure 118 mm[Hg] Jameel Hernandez MD Work Phone: [facility] 04-28-2023 16:42-0400 Body height 152.4 cm Sukh Newbill PA-C Work Phone: [facility] 04-28-2023 16:42-0400 Body mass index (BMI) [Ratio] 22.91 kg/m2 Sukh Newbill PA-C Work Phone: [facility] 04-28-2023 16:42-0400 Body weight 53.21 kg Sukh Newbill PA-C Work Phone: [facility] 04-28-2023 16:42-0400 Diastolic blood pressure 77 mm[Hg] Sukh Newbill PA-C Work Phone: [facility] 04-28-2023 16:42-0400 Heart rate 103 /min Sukh Newbill PA-C Work Phone: [facility] 04-28-2023 16:42-0400 Systolic blood pressure 130 mm[Hg] Sukh Newbill PA-C Work Phone: [facility] 03-04-2023 09:42-0400 Body height 152.4 cm Sukh Newbill PA-C Work Phone: [facility] 03-04-2023 09:42-0400 Body mass index (BMI) [Ratio] 21.99 kg/m2 Sukh Newbill PA-C Work Phone: [facility] 03-04-2023 09:42-0400 Body weight 51.08 kg Sukh Newbill PA-C Work Phone: [facility] 03-04-2023 09:42-0400 Diastolic blood pressure 66 mm[Hg] Sukh Newbill PA-C Work Phone: [facility] 03-04-2023 09:42-0400 Heart rate 84 /min Sukh Newbill PA-C Work Phone: [facility] 03-04-2023 09:42-0400 Systolic blood pressure 110 mm[Hg] Sukh Newbill PA-C Work Phone: [facility] 02-15-2023 10:24-0400 Body height 149.86 cm Sukh Pamela Newbill [facility]: [facility] [address] Work Phone: 02-15-2023 10:24-0400 Body mass index (BMI) [Ratio] 23.86 kg/m2 Sukh Pamela Newbill Work Phone: [facility] [address] Work Phone: 02-15-2023 10:24-0400 Body surface area Derived from formula 1.47 m2 Sukh M Newbill Work Phone: [facility] [address] Work Phone: 02-15-2023 10:24-0400 Body weight 53.58 kg Sukh M Newbill Work Phone: [address] Work Phone: 02-15-2023 10:24-0400 Diastolic blood pressure 64 mm[Hg] Sukh M Newbill Work Phone: [address] Work Phone: 02-15-2023 10:24-0400 Systolic blood pressure 114 mm[Hg] Sukh M Newbill Work Phone: [address] Work Phone: 01-26-2023 11:56-0400 Body height 152.4 cm Sukh Newbill PA-C Work Phone: [facility] 01-26-2023 11:56-0400 Body mass index (BMI) [Ratio] 22.48 kg/m2 Sukh Newbill PA-C Work Phone: [facility] 01-26-2023 11:56-0400 Body temperature 97.5 [degF] Sukh Newbill PA-C Work Phone: [facility] 01-26-2023 11:56-0400 Body weight 52.21 kg Sukh Newbill PA-C Work Phone: [facility] 01-26-2023 11:56-0400 Diastolic blood pressure 74 mm[Hg] Sukh Newbill PA-C Work Phone: [facility] 01-26-2023 11:56-0400 Heart rate 54 /min Sukh Newbill PA-C Work Phone: [facility] 01-26-2023 11:56-0400 Systolic blood pressure 109 mm[Hg] Sukh Newbill PA-C Work Phone: [facility] 12-17-2022 09:09-0400 Body height 149.86 cm Sukh M Newbill Work Phone: [id number] Work Phone: 12-17-2022 09:09-0400 Body mass index (BMI) [Ratio] 24.04 kg/m2 Sukh Simpson Work Phone: [facility] Work Phone: 12-17-2022 09:09-0400 Body surface area Derived from formula 1.48 m2 Sukh Simpson Work Phone: [id number] Work Phone: 12-17-2022 09:09-0400 Body weight 53.98 kg Sukh Simpson Work Phone: [facility] Work Phone: 12-17-2022 09:09-0400 Diastolic blood pressure 73 mm[Hg] Sukh Pollock Work Phone: [id number] Work Phone: 12-17-2022 09:09-0400 Heart rate 65 /min Sukh Pollock Work Phone: [id number] 320 Work Phone: 12-17-2022 09:09-0400 Systolic blood pressure 106 mm[Hg] Sukh Pollock Work Phone: [id number] 320 Work Phone: 12-17-2022 09:09-0400 0 1 Sukh Simpson Work Phone: [id number] Work Phone: Comment on above: GRAV PARA [employer] 12-02-2022 13:12-0400 Body mass index (BMI) [Ratio] 24.04 kg/m2 [facility] Work Phone: [facility] Work Phone: 12-02-2022 13:12-0400 Body surface area Derived from formula 1.48 m2 Sukh Simpsonl Work Phone: [facility] Work Phone: 12-02-2022 13:12-0400 Body weight 53.98 kg Sukh Pamela Simpsonl Work Phone: [facility] Work Phone: 12-02-2022 13:12-0400 Diastolic blood pressure 71 mm[Hg] Sukh Pamela Simpsonl Work Phone: [facility] Work Phone: 12-02-2022 13:12-0400 Heart rate 67 /min Sukh Pamela Simpsonl Work Phone: [facility] Work Phone: 12-02-2022 13:12-0400 Systolic blood pressure 96 mm[Hg] Sukh Pamela Simpsonl Work Phone: [facility] Work Phone: 12-02-2022 13:12-0400 0 1 Sukhsola Simpsonl Work Phone: [facility] Work Phone: Comment on above: [employer] 11-24-2022 10:04-0400 Body height 149.86 cm Sukh Simpsonl Work Phone: [place] [address] [address] Work Phone: 11-24-2022 10:04-0400 Body mass index (BMI) [Ratio] 26.48 kg/m2 Sukh Pamela Newbill [facility] [facility] [address] [address] Work Phone: 11-24-2022 10:04-0400 Body surface area Derived from formula 1.54 m2 Sukh Pamela Newbill Work Phone: [facility] [address] Work Phone: 11-24-2022 10:04-0400 Body weight 59.48 kg Sukh Pamela Newbill Work Phone: [facility] [address] Work Phone: 11-24-2022 10:04-0400 Diastolic blood pressure 72 mm[Hg] Sukh M Newbill Work Phone: [address] Work Phone: 11-24-2022 10:04-0400 Systolic blood pressure 118 mm[Hg] Sukh Pamela Newbill Work Phone: [address] Work Phone: 11-03-2022 11:02-0400 Body height 149.9 cm Sukh Newbill PA-C Work Phone: [facility] 11-03-2022 11:02-0400 Body mass index (BMI) [Ratio] 25.45 kg/m2 Sukh Newbill PA-C Work Phone: [facility] 11-03-2022 11:02-0400 Body temperature 98.01 [degF] Sukh Newbill PA-C Work Phone: [facility] 11-03-2022 11:02-0400 Body weight 57.15 kg Sukh Newbill PA-C Work Phone: [facility] 11-03-2022 11:02-0400 Diastolic blood pressure 71 mm[Hg] Sukh Newbill PA-C Work Phone: [facility] 11-03-2022 11:02-0400 Heart rate 96 /min Sukh Newbill PA-C Work Phone: [facility] 11-03-2022 11:02-0400 SaO2% (BldA) [Mass fraction] 98 % Sukh Newbill PA-C Work Phone: [facility] 11-03-2022 11:02-0400 Systolic blood pressure 105 mm[Hg] Sukh Newbill PA-C Work Phone: [facility] 10-31-2022 10:57-0400 Body height 152 cm Sukh Newbill Other Phone: [facility] 10-31-2022 10:57-0400 Body temperature 97.7 [degF] Sukh Newbill Other Phone: [facility] 10-31-2022 10:57-0400 Diastolic blood pressure 76 mm[Hg] Sukh Newbill Other Phone: [facility] 10-31-2022 10:57-0400 Heart rate 71 /min Sukh Newbill Other Phone: [facility] 10-31-2022 10:57-0400 Respiratory rate 12 /min Sukh Newbill Other Phone: [facility] 10-31-2022 10:57-0400 SaO2% (BldA) [Mass fraction] 98 % Sukh Newbill Other Phone: [facility] 10-31-2022 10:57-0400 Systolic blood pressure 109 mm[Hg] Sukh Newbill Other Phone: [facility] 09-21-2022 14:42-0500 Body height 149.86 cm Sukh Santiago Newramonital Work Phone: [facility] Work Phone: 09-21-2022 14:42-0500 Body mass index (BMI) [Ratio] 25.63 kg/m2 Sukh Santiago Newramonital Work Phone: [facility] Work Phone: 09-21-2022 14:42-0500 Body surface area Derived from formula 1.52 m2 Sukh Pamela Newbill Work Phone: [facility] Work Phone: 09-21-2022 14:42-0500 Body temperature 97.8 [degF] Sukh Pamela Newbill Work Phone: [facility] Work Phone: 09-21-2022 14:42-0500 Body weight 57.56 kg Sukh Pollock Work Phone: [facility] Work Phone: 09-21-2022 14:42-0500 Diastolic blood pressure 64 mm[Hg] Sukh Simpsonl Work Phone: [facility] Work Phone: 09-21-2022 14:42-0500 Heart rate 82 /min Sukh Pollock Work Phone: [facility] Work Phone: 09-21-2022 14:42-0500 SaO2% (BldA) [Mass fraction] 98 % Sukh Pollock Work Phone: [facility] Work Phone: 09-21-2022 14:42-0500 Systolic blood pressure 101 mm[Hg] Sukh Pollock Work Phone: [facility] Work Phone: 05-21-2022 16:26-0400 Body height 149.86 cm Sukh Pollock Work Phone: [facility] Work Phone: 05-21-2022 16:26-0400 Body mass index (BMI) [Ratio] 26.9 kg/m2 Sukh Pollock Work Phone: [facility] Work Phone: 05-21-2022 16:26-0400 Body surface area Derived from formula 1.55 m2 Sukh Pollock Work Phone: [facility] Work Phone: 05-21-2022 16:26-0400 Body temperature 97.5 [degF] Sukh Pollock Work Phone: [facility] Work Phone: 05-21-2022 16:26-0400 Body weight 60.42 kg Sukh Pamela Simpsonl Work Phone: [facility] Work Phone: 05-21-2022 16:26-0400 Diastolic blood pressure 81 mm[Hg] Sukh Pamela Simpsonl Work Phone: [facility] Work Phone: 05-21-2022 16:26-0400 Heart rate 63 /min Sukh Pamela Simpsonl Work Phone: [facility] Work Phone: 05-21-2022 16:26-0400 Systolic blood pressure 105 mm[Hg] Sukh Simpsonl Work Phone: [facility] Work Phone: 04-22-2022 16:21-0400 Body height 149.86 cm Sukh Simpsonl Work Phone: [facility] Work Phone: 04-22-2022 16:21-0400 Body mass index (BMI) [Ratio] 27 kg/m2 Sukh Simpsonl Work Phone: [facility] Work Phone: 04-22-2022 16:21-0400 Body surface area Derived from formula 1.55 m2 Sukh Simpsonl Work Phone: [facility] Work Phone: 04-22-2022 16:21-0400 Body temperature 97.6 [degF] Sukh Simpsonl Work Phone: [facility] Work Phone: 04-22-2022 16:21-0400 Body weight 60.65 kg Sukh Pamela Simpsonl Work Phone: [facility] Work Phone: 04-22-2022 16:21-0400 Diastolic blood pressure 69 mm[Hg] Sukh Simpson Work Phone: [facility] Work Phone: 04-22-2022 16:21-0400 Heart rate 87 /min Sukh Simpson Work Phone: [facility] Work Phone: 04-22-2022 16:21-0400 SaO2% (BldA) [Mass fraction] 98 % Sukh Simpson Work Phone: [facility] Work Phone: 04-22-2022 16:21-0400 Systolic blood pressure 109 mm[Hg] Sukh Simpson Work Phone: [facility] Work Phone: 02-11-2022 10:13-0400 Body height 149.86 cm Sukh Simpson [facility] Phone[facility] [address] Work Phone: 02-11-2022 10:13-0400 Body mass index (BMI) [Ratio] 27.39 kg/m2 Sukh Simpson Work Phone: [facility] [address] Work Phone: 02-11-2022 10:13-0400 Body surface area Derived from formula 1.56 m2 Sukh Simpson Work Phone: [facility] [address] Work Phone: 02-11-2022 10:13-0400 Body temperature 98.4 [degF] Sukh Simpson Work Phone: [facility] [address] Work Phone: 02-11-2022 10:13-0400 Body weight 61.51 kg Sukh Pollock Work Phone: [facility] [address] Work Phone: 02-11-2022 10:13-0400 Diastolic blood pressure 64 mm[Hg] Sukh Pollock Work Phone: [facility] [address] Work Phone: 02-11-2022 10:13-0400 Heart rate 82 /min Sukh Pollock Work Phone: [facility] [address] Work Phone: 02-11-2022 10:13-0400 SaO2% (BldA) [Mass fraction] 97 % Sukh Pollock Work Phone: [facility] [address] Work Phone: 02-11-2022 10:13-0400 Systolic blood pressure 102 mm[Hg] Sukh Pollock Work Phone: [facility] [address] Work Phone: 01-28-2022 10:54-0400 Body height 149.86 cm Sukh Simpson Work Phone: [facility] [address] Work Phone: 01-28-2022 10:54-0400 Body mass index (BMI) [Ratio] 27.52 kg/m2 Sukh Simpson Work Phone: [facility] [address] Work Phone: 01-28-2022 10:54-0400 Body surface area Derived from formula 1.57 m2 Sukh Simpson Work Phone: [facility] [address] Work Phone: 01-28-2022 10:54-0400 Body weight 61.8 kg Sukh Simpson Work Phone: [facility] [address] Work Phone: 01-28-2022 10:54-0400 Diastolic blood pressure 78 mm[Hg] Sukh Pollock Work Phone: [facility] [address] Work Phone: 01-28-2022 10:54-0400 Systolic blood pressure 122 mm[Hg] Sukh Santiago Newdean Work Phone: [facility] [address] Work Phone: 01-28-2022 09:10-0400 Body height 149.86 cm Sukh Pollock Work Phone: [facility] [address] Work Phone: 01-28-2022 09:10-0400 Body mass index (BMI) [Ratio] 27.51 kg/m2 Sukh Pollock Work Phone: [facility] [address] Work Phone: 01-28-2022 09:10-0400 Body surface area Derived from formula 1.57 m2 Sukh Pollock Work Phone: [facility] [address] Work Phone: 01-28-2022 09:10-0400 Body temperature 97.8 [degF] Sukh Pollock Work Phone: [facility] [address] Work Phone: 01-28-2022 09:10-0400 Body weight 61.78 kg Sukh Pollock Work Phone: [facility] [address] Work Phone: 01-28-2022 09:10-0400 Diastolic blood pressure 72 mm[Hg] Sukh Pollock Work Phone: [facility] [address] Work Phone: 01-28-2022 09:10-0400 Heart rate 86 /min Sukh Santiago Newramonital Work Phone: [facility] [address] Work Phone: 01-28-2022 09:10-0400 SaO2% (BldA) [Mass fraction] 98 % Sukhsola Griffinbill Work Phone: [facility] [address] Work Phone: 01-28-2022 09:10-0400 Systolic blood pressure 116 mm[Hg] Sukh Pamela Newbill Work Phone: [facility] [address] Work Phone: 01-14-2022 11:21-0400 Body height 149.86 cm Sukh Pamela Newbill Work Phone: [place] [address] [address] Work Phone: 01-14-2022 11:21-0400 Body mass index (BMI) [Ratio] 26.69 kg/m2 Sukh Pamela Newbill Work Phone: [place] [address] [address] Work Phone: 01-14-2022 11:21-0400 Body surface area Derived from formula 1.55 m2 Sukh Pamela Newbill Work Phone: [place] [address] [address] Work Phone: 01-14-2022 11:21-0400 Body weight 59.93 kg Sukh Pamela Newbill Work Phone: [place] [address] [address] Work Phone: 01-14-2022 11:21-0400 Diastolic blood pressure 78 mm[Hg] Sukh M Newbill Work Phone: [place] [address] [address] Work Phone: 01-14-2022 11:21-0400 Systolic blood pressure 118 mm[Hg] Sukh M Newbill Work Phone: [place] [address] [address] Work Phone: 12-31-2021 11:57-0400 Body height 149.86 cm Sukh Pollock Work Phone: [facility] Work Phone: 12-31-2021 11:57-0400 Body mass index (BMI) [Ratio] 26.96 kg/m2 Sukh Simpsonl Work Phone: [facility] Work Phone: 12-31-2021 11:57-0400 Body surface area Derived from formula 1.55 m2 Sukh Simpsonl Work Phone: [facility] Work Phone: 12-31-2021 11:57-0400 Body weight 60.56 kg Sukh Simpsonl Work Phone: [facility] Work Phone: 12-31-2021 11:57-0400 Diastolic blood pressure 64 mm[Hg] Sukh Simpsonl Work Phone: [facility] Work Phone: 12-31-2021 11:57-0400 Heart rate 108 /min Sukh Pollock Work Phone: [facility] Work Phone: 12-31-2021 11:57-0400 Systolic blood pressure 106 mm[Hg] Sukh Simpsonl Work Phone: [facility] Work Phone: 09-01-2021 11:08-0500 Body height 149.86 cm Sukh Simpsonl Work Phone: [facility] Work Phone: 09-01-2021 11:08-0500 Body mass index (BMI) [Ratio] 26.46 kg/m2 Sukh Simpsonl Work Phone: [facility] Work Phone: 09-01-2021 11:08-0500 Body surface area Derived from formula 1.54 m2 Sukh Pollock Work Phone: [facility] Work Phone: 09-01-2021 11:08-0500 Body temperature 99 [degF] Sukh Pollock Work Phone: [facility] Work Phone: 09-01-2021 11:08-0500 Body weight 59.42 kg Sukh Pollock Work Phone: [facility] Work Phone: 09-01-2021 11:08-0500 Diastolic blood pressure 69 mm[Hg] Sukh Pollock Work Phone: [facility] Work Phone: 09-01-2021 11:08-0500 Heart rate 123 /min Sukh Pollock Work Phone: [facility] Work Phone: 09-01-2021 11:08-0500 SaO2% (BldA) [Mass fraction] 99 % Sukh Pollock Work Phone: [facility] Work Phone: 09-01-2021 11:08-0500 Systolic blood pressure 107 mm[Hg] Sukh Pollock Work Phone: [facility] Work Phone: 06-24-2021 16:32-0500 Body height 149.86 cm Sukh Pollock Work Phone: [facility] Work Phone: 06-24-2021 16:32-0500 Body mass index (BMI) [Ratio] 26.64 kg/m2 Sukh Pollock Work Phone: [facility] Work Phone: 06-24-2021 16:32-0500 Body surface area Derived from formula 1.54 m2 Sukh Pollock [facility] Work Phone: 06-24-2021 16:32-0500 Body temperature 97.3 [degF] Sukh Pollock Work Phone: [facility] Work Phone: 06-24-2021 16:32-0500 Body weight 59.83 kg Sukh Pollock Work [facility]: [facility] Work Phone: 06-24-2021 16:32-0500 Diastolic blood pressure 73 mm[Hg] Sukh Pollock Work Phone: [facility] Work Phone: 06-24-2021 16:32-0500 Heart rate 89 /min Sukh Pollock Work [facility]: [facility] Work Phone: 06-24-2021 16:32-0500 SaO2% (BldA) [Mass fraction] 99 % Sukh Pollock Work Phone: [facility] Work Phone: 06-24-2021 16:32-0500 Systolic blood pressure 106 mm[Hg] Sukh Pollock Work Phone: [facility] Work Phone: 09-01-2019 13:34-0500 BMI (Body Mass Index) 25.13 kg/m2 [facility] Work Phone: 09-01-2019 13:34-0500 Body weight 58.06 kg [facility] Work Phone: 09-01-2019 13:34-0500 BP Diastolic 68 mm[Hg] [facility] Work Phone: 09-01-2019 13:34-0500 BP Systolic 112 mm[Hg] [facility] Work Phone: 09-01-2019 13:34-0500 BSA (Body Surface Area) 1.54 m2 [facility] Work Phone: 09-01-2019 13:34-0500 Height 152 cm [facility] Work Phone: Encounters Encounter Date Encounter Type Care Provider Facility Start: 06-08-2025 End: 06-08-2025 ambulatory Ayaka Selam [facility] Start: 06-06-2025 ambulatory Ayaka [facility] [place] Facility:[facility] Start: 05-17-2025 End: 05-17-[address] Kirsten Aragon DO -Laboratory Specimen Work Phone: Start: 05-17-2025 End: 05-17-2025 ambulatory Ayaka Doss SPOOL WORKER-C Work Phone: -[facility] Start: 05-17-2025 End: 05-17-2025 ambulatory Ayaka Selam Facility:[facility] Start: 05-16-2025 Registered Recurring Apple Browne CNM -Physical Therapy Work Phone: Start: 04-19-2025 End: 04-19-2025 ambulatory AYAKA Manzanares SELAM [facility] Start: 04-18-2025 End: 04-18-2025 Patient encounter procedure Nelli Juárez SPOOL WORKER-C -[facility] Work Phone: Start: 04-18-2025 End: 04-18-2025 ambulatory Ayaka Doss SPOOL WORKER-C Work Phone: -[facility] Start: 04-07-2025 End: 04-07-2025 Emergency department patient visit AYAKA Glenna [facility] Start: 04-05-2025 End: 04-05-2025 ambulatory MARCIE SANTANA [facility] Start: 03-19-2025 End: 03-19-2025 ambulatory Ayaka Doss SPOOL WORKER-C Work Phone: -Laboratory Specimen Start: 03-19-2025 End: 03-19-2025 Patient encounter procedure Kelsey NAVARROM -Laboratory Specimen Work Phone: Start: 03-19-2025 End: 03-19-2025 Patient encounter procedure Kelsey NAVARROM -[facility] Work Phone: Start: 03-19-2025 End: 03-19-2025 ambulatory Ayaka Doss SPOOL WORKER-C Work Phone: -[facility] Start: 03-19-2025 End: 03-19-2025 ambulatory Kelsey Harrell Facility:[facility] Start: 03-13-2025 Registered Recurring Apple Browne CNM -Physical Therapy Work Phone: Start: 02-22-2025 End: 02-22-[address] Marcie Santana MD -[facility] Work Phone: Start: 02-22-2025 End: 02-22-[address] Daniel Schneider DO Work Phone: -[facility] Start: 02-20-2025 Registered Recurring Apple Browne CNM -Physical Therapy Work Phone: Start: 01-26-2025 End: 01-26-2025 Patient encounter procedure Apple Browne CNM -[facility] Work Phone: Start: 01-26-2025 End: 01-26-[address] Daniel Schneider DO Work Phone: -[facility] Start: 01-26-2025 End: 01-26-2025 ambulatory Ayaka Doss Facility:[facility] Start: 01-12-2025 End: 01-12-[address] Kirsten Aragon DO -[facility] Work Phone: Start: 01-12-2025 End: 01-12-[address] Daniel Schneider DO Work Phone: [facility] Work Phone: Start: 01-04-2025 ambulatory [facility] Facility:[facility] Start: 01-04-2025 End: 01-04-2025 Office outpatient new 60 minutes Johann Haines MD Work Phone: [facility] [place] Comment on above: Chronic urticaria (P rimary Dx); Angioedema, initial encounter; Swelling Start: 01-04-2025 ambulatory STARR TORREZ [facility] lity:[facility] Start: 01-02-2025 End: 01-02-2025 ambulatory [facility] Ambulatory Start: 01-02-2025 End: 01-02-2025 Office outpatient new 45 minutes Chad Valdez MD Work Phone: [facility] Comment on above: OAB (overactive blad shannan) (Primary Dx); Urinary symptom or sign; Interstitial cystitis; Pelvic pain in female; Pelvic floor dysfunction Start: 12-26-2024 End: 12-26-2024 ambulatory [facility] Start: 12-22-[address] [facility] Start: 11-24-2024 End: 11-24-2024 Office outpatient visit 15 minutes [facility] RATE SETTER-CONTINUOUS DRYOUT OPERATOR Work Phone: [facility] Comment on above: Allergic reaction, s ubsequent encounter (Primary Dx) Start: 11-24-2024 End: 11-24-2024 ambulatory [facility] Start: 11-23-2024 End: 11-23-2024 Emergency department patient visit Starr Torrez MD Work Phone: [facility] Start: 11-22-2024 End: 11-22-2024 [facility] Start: 11-16-[address] [facility] Start: 11-05-2024 End: 11-05-2024 Emergency department patient visit Dr. Daniel Schneider DO Work Phone: -Emergency Department Work Phone: Start: 09-22-2024 End: 09-22-2024 Subsequent hospital visit by physician Lan X-Ray 1 [facility] Comment on above: Bronchitis Start: 09-22-2024 End: 09-22-2024 ambulatory [facility] Start: 09-20-2024 End: 09-20-2024 Office outpatient visit 15 minutes Ayaka Glenna Doss RATE SETTER-CONTINUOUS DRYOUT OPERATOR Work Phone: [facility] Comment on above: Bronchitis (Primary Dx); , unspecified gestational age ([facility]) Start: 09-20-2024 End: 09-20-2024 ambulatory [facility] Start: 09-09-2024 End: 09-09-2024 Patient encounter procedure Evens Palacios RATE SETTER-CONTINUOUS DRYOUT OPERATOR Work Phone: [facility] Comment on above: Acute non-recurrent maxillary sinusitis (Primary Dx); Acute upper respiratory infection Start: 09-09-2024 End: 09-09-2024 ambulatory [facility] Start: 08-31-2024 End: 08-31-2024 Subsequent hospital visit by physician Lan Ultrasound 1 [facility] Comment on above: UTI symptoms Start: 08-31-2024 End: 08-31-2024 ambulatory [facility] Start: 08-30-2024 End: 08-30-2024 Office outpatient visit 15 minutes [facility] Glenna Doss RATE SETTER-CONTINUOUS DRYOUT OPERATOR Work Phone: [facility] Comment on above: UTI symptoms Start: 08-30-2024 End: 08-30-2024 ambulatory [facility] Start: 06-14-2024 End: 06-14-2024 Phys/qhp telephone evaluation 11-20 min Ayaka Glenna Doss RATE SETTER-CONTINUOUS DRYOUT OPERATOR Work Phone: [facility] Comment on above: Panic attacks (Prima ry Dx); Anxiety and depression Start: 06-14-2024 End: 06-14-[facility] Start: 06-01-2024 End: 06-01-2024 ambulatory JAYDEN TAYLOR [facility] Start: 05-02-2024 End: 05-02-2024 Patient encounter procedure Evens Palacios RATE SETTER-CONTINUOUS DRYOUT OPERATOR Work Phone: 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 (Primary Dx) Start: 05-02-2024 End: 05-02-2024 ambulatory [facility] Start: 04-28-2024 End: 04-28-2024 Subsequent hospital visit by physician Jayden Taylor MD Work Phone: [facility] [place] Comment on above: Endometriosis determ ined by laparoscopy (Primary Dx); Post-op pain Start: 04-27-2024 End: 04-27-2024 Office outpatient visit 25 minutes Ayaka Manzanares Selam RATE SETTER-CONTINUOUS DRYOUT OPERATOR Work Phone: [facility] Comment on above: Health maintenance e xamination (Primary Dx); Gastroesophageal reflux disease without esophagitis Start: 04-27-2024 End: 04-27-2024 Patient encounter status Ayaka Rootman RATE SETTER-CONTINUOUS DRYOUT OPERATOR Work Phone: [facility] Work Phone: Start: 04-19-2024 End: 04-19-2024 ambulatory NO ASSIGNED PCP GENERIC PROVIDER [facility] Start: 04-19-2024 End: 04-19-2024 Encounter for other preprocedural examination NO ASSIGNED PCP GENERIC PROVIDER [facility] Start: 12-22-2023 End: 12-22-2023 Office outpatient visit 25 minutes Jayden Taylor MD Work Phone: [facility] Comment on above: Endometriosis determ ined by laparoscopy (Primary Dx); Dyspareunia in female Start: 10-29-2023 End: 10-29-2023 Postop follow up visit related to original px Jameel R Mary MD Work Phone: [facility] Comment on above: Postoperative visit (Primary Dx); Endometriosis determined by laparoscopy Start: 10-14-2023 End: 10-14-2023 Subsequent hospital visit by physician aJmeel Hernandez MD Work Phone: [facility] [place] Comment on above: Chronic pelvic pain in female (Primary Dx); PONV (postoperative nausea and vomiting) Start: 09-24-2023 End: 09-24-2023 Office outpatient visit 15 minutes Jameel Hernandez MD Work Phone: [facility] Comment on above: Chronic pelvic pain in female (Primary Dx); Dyspareunia in female Start: 04-28-2023 End: 04-28-2023 Office outpatient visit 25 minutes Sukh Pollock PA-C Work Phone: [facility] Comment on above: Anxiety and depressi on (Primary Dx); Panic attack; Nausea in adult Start: 03-04-2023 End: 03-04-2023 Office outpatient visit 25 minutes Sukh Pollock PA-C Work Phone: [facility] Comment on above: Anxiety and depressi on (Primary Dx); Injury of sacrum, initial encounter Start: 02-15-2023 ambulatory MD SHARDA RAYGOZA CIA CHÁVEZ Facility:[id number] Start: 02-15-2023 Periodic preventive med est patient 18-39 yrs Sukh Pollock Work Phone: [address] Work Phone: Start: 02-01-2023 ambulatory Sukh Pollock Facility:[id number] Start: 02-01-2023 ambulatory Sukh Pollock Facility:[id number] Start: 01-26-2023 End: 01-26-2023 Office outpatient visit 40 minutes Sukh Pollock PA-C Work Phone: [facility] Comment on above: Anxiety and depressi on (Primary Dx); Panic attack; Bilious vomiting with nausea; Acute bilateral low back pain, unspecified whether sciatica present Start: 12-17-2022 Office outpatient ne w 45 minutes Sukh Pollock Work Phone: [id number] Work Phone: Start: 12-17-2022 ambulatory Jayden Taylor Facility :[id number] Start: 12-02-2022 NPV, Provider: Mariah Lr, Status: Pen, Time: 1:00 PM Sukh Pollock Work Phone: [facility] Work Phone: Start: 12-02-2022 ambulatory Mariah Clementsudeep Facility: [id number] Start: 11-24-2022 Office outpatient vi sit 15 minutes uSkh Pollock Work Phone: [address] Work Phone: Start: 11-24-2022 ambulatory MD SHARDA RAYGOZA [facility] Facility:[id number] Start: 11-19-2022 End: 11-19-2022 Emergency department patient visit Paola Pickard [facility] Emergency 10 Start: 11-03-2022 End: 11-03-2022 Office outpatient visit 25 minutes Sukh Pollock PA-C Work Phone: [facility] Comment on above: Anxiety and depressi on (Primary Dx); Panic attacks; Pharyngitis, unspecified etiology Start: 10-31-2022 End: 10-31-2022 Emergency department patient visit Freya Jayro [facility] 01 Start: 09-28-2022 Chart Update Sukh Pollock Work Phone: [facility] Work Phone: Start: 09-23-2022 AUDIT Sukh Pollock Work Phone: [facility] Work Phone: Start: 09-21-2022 ambulatory Mr. Sukh lazar Phill Facility:[id number] Start: 09-21-2022 Office outpatient vi sit 25 minutes Sukh Pollock Work Phone: [facility] Work Phone: Start: 08-27-2022 AUDIT Sukh Pamela Newbill Work Phone: [facility] Work Phone: Start: 07-02-2022 ambulatory Mr. Sukh Pollock Facility:[id number] Start: 06-01-2022 AUDIT Sukh Pamela Newbill Work Phone: [facility] Work Phone: Start: 05-22-2022 AUDIT Sukh Pamela Newbill Work Phone: [facility] Work Phone: Start: 05-21-2022 Office outpatient vi sit 25 minutes Sukh Pamela Newbill Work Phone: [facility] Work Phone: Start: 05-21-2022 ambulatory Mr. Sukh Pollock Facility:[id number] Start: 04-22-2022 Office outpatient vi sit 25 minutes Sukh Pamela Newbill Work Phone: [facility] Work Phone: Start: 04-22-2022 ambulatory Mr. Sukh Pollock Facility:[id number] Start: 02-11-2022 Office outpatient vi sit 25 minutes Sukh Pamela Newbill Work Phone: [facility] 400 DO Work Phone: Start: 01-28-2022 FUV, Provider: Sharda Chávez, Status: Pen, Time: 10:45 AM Sukh M Newbill Work Phone: [facility] [address] Work Phone: Start: 01-28-2022 NPV, Provider: Solo Barnes, Status: Pen, Time: 9:00 AM Sukh M Newbill Work Phone: [facility] [address] Work Phone: Start: 01-28-2022 Office consultation new/estab patient 80 min Sukh Pollock [facility] Phone[facility] 400 DO Work Phone: Start: 01-26-2022 Chart Update Sukh Pollock Work Phone: [facility] [address] Work Phone: Start: 01-24-2022 Rx Renewal Sukh Pollock Work Phone: [facility] Work Phone: Start: 01-20-2022 Chart Update Sukh Pollock Work Phone: [facility] [address] Work Phone: Start: 01-19-2022 Chart Update Sukh Pollock Work Phone: [place] [address] [address] Work Phone: Start: 01-16-2022 Chart Update Sukh Simpsoncady Work Phone: [facility] [address] Work Phone: Start: 01-15-2022 Chart Update Sukh Simpsoncady Work Phone: [facility] [address] Work Phone: Start: 01-14-2022 Initial preventive medicine new pt age 18-39yrs Sukh Pollock Work Phone: [facility] [address] Work Phone: Start: 01-01-2022 Chart Update Sukh Pollock Work Phone: [facility] Work Phone: Start: 12-31-2021 Office outpatient vi sit 15 minutes Sukh Pollock Work Phone: [facility] Work Phone: Start: 12-30-2021 AUDIT Sukh Pollock Work Phone: [facility] Work Phone: Start: 09-02-2021 Chart Update Sukh Pollock Work Phone: [facility] [place] [facility] Work Phone: Start: 09-01-2021 Office outpatient vi sit 25 minutes Sukh Pollock Work Phone: [facility] Work Phone: Start: 06-24-2021 Current tobacco non- user cad cap copd pv dm Sukh Pollock Work Phone: [facility] [place] [facility] Work Phone: Procedures Date Procedure Procedure Detail Performing Clinician Start: 05-17-2025 Urine culture Ayaka huitron SPOOL WORKER-C Work Phone: Start: 03-19-2025 Urine culture Ayaka huitron SPOOL WORKER-C Work Phone: Start: 01-26-2025 Hepatitis C antibody [...] HCV Quant by PCR testing - HCVPCR #[id number] Non Reactive: < 0.8 Equivocal: >/= 0.8 [...] POCT SARS-COV-2/FLU/ RSV PCR SYMPTOMATIC Evens Palacios [facility] Work Phone: Start: 08-30-2024 Urnls dip stick/tabl et rgnt auto w/o microscopy Ayaka Doss [facility] Work Phone: Start: 04-28-2024 End: 04-28-2024 PULSE [...] RSV VACCINE (1 - 1-dose 75+ series) [facility] Start: 2047 Zoster Vaccines (1 of 2) Zoster Vaccines (1 of 2) [facility] Start: 02-03-2030 DTaP/Tdap/Td Vaccines (8 - Td or Tdap) DTaP/Tdap/Td Vaccines (8 - Td or Tdap) [facility] Start: 02-03-[address] [facility] Start: 12-31-2026 Lipid panel Lipid Panel [facility] Start: 10-05-2025 End: 10-05-2025 Patient encounter procedure 10/05/2025 11:40 AM EST Office Visit [facility] [address] [place] [phone] [place] [address] [facility], [facility] [address] [place] [address] [facility] Start: 05-22-2025 End: 05-22-2025 Patient encounter procedure 05/22/2025 9:00 AM EDT Office Visit Elsy Michael [address] [facility] [address] [place] [address] Jayden Taylor MD [address] [facility], [facility] [address] [place] [address] Elsy Michael Start: 05-17-2025 Measurement of glucose 2 hours after glucose challenge for glucose tolerance test [facility] Start: 05-17-2025 Serologic test for syphilis [facility] Start: 05-17-2025 [facility] Start: 04-27-2025 End: 04-27-2025 Admission to same day surgery center 04/27/2025 11:00 AM EDT - 04/27/2025 12:00 PM EDT Surgery [facility] [place] [address] [place] [address] Jayden Taylor MD [address] [facility], [address] [place] [address] EXAM UNDER ANESTHESIA/ PELVIC FLOOR BOTOX INJECTION AD ANY INDICATED PROCEDURE [ (CPT )] [facility] [place] Comment on above: EXAM UNDER ANESTHESIA/ PELVIC FLOOR BOTO X INJECTION AD ANY INDICATED PROCEDURE [ (CPT )] Start: 04-27-2025 End: 04-27-2025 Injection single/tactical air control party manager trigger point 3/> muscles INJECTION, TRIGGER POINT Pelvic pain 04/27/2025 11:00 AM EDT Virtual [facility] [place] Start: 04-27-2025 Subsequent hospital visit by physician 04/27/2025 9:30 AM EDT Hospital Encounter [facility] [place] [address] [place] [address] Jayden Taylor MD [address] [facility], [address] [place] [address] [facility] [place] Start: 04-10-2025 End: 04-10-2025 Telemedicine consultation with patient 04/10/2025 11:20 AM EDT Telemedicine [facility] [address] [place] [address] [place] [address] [facility], [address] [id number] [facility] Start: 04-02-2025 Influenza vaccination INFLUENZA VACCINE (Season Ended) [facility] Start: 03-02-2025 End: 03-02-2025 Telemedicine consultation with patient 03/02/2025 11:30 AM EDT Telemedicine [facility] [address] [place] [address] Johann Haines MD [address] [facility] [address] [place] [address] [facility] Start: 02-01-2025 End: 02-01-2025 Patient encounter procedure 02/01/2025 9:40 AM EDT Office Visit [facility] [address] [facility] [address] [place] [address] Elizabeth Angel MD [facility] [address] [facility] [address] [place], [place] [phone] [facility] Start: 01-26-2025 CBC W Auto Differential panel - Blood [facility] Start: 01-26-2025 Hepatitis C antibody measurement [facility] Start: 01-26-2025 Rubella IgG measurement [facility] Start: 01-26-2025 Serologic test for syphilis [facility] Start: 01-26-2025 [facility] Start: 01-26-2025 Bacteria identified in Urine by Culture Urine Culture [facility] Start: 01-26-2025 Chlamydia deoxyribonucleic acid detection [facility] Start: 01-26-2025 [facility] Start: 01-14-2025 Screening for malignant neoplasm of cervix [facility] Start: 01-09-2025 End: 01-09-2025 Patient encounter procedure 01/09/2025 11:20 AM EDT Office Visit [facility] [address] [place] [phone] [place] [address] [address] [facility], [facility] [address] [place], [place] [phone] [facility] Start: 01-08-2025 End: 01-08-2025 Patient encounter procedure 01/08/2025 10:00 AM EDT Consult Elsy Michael [address] [facility] [address] [place] [phone] Farida Luong, RATE SETTER-CONTINUOUS DRYOUT OPERATOR [address] [facility], Aiyana Michael [facility] [address] [place] [address] Chin Riselana Michael Start: 01-04-2025 End: 01-04-2026 2,3-DINOR-11 BETA-PROSTAGLANDIN F2 ALPHA, 24HR URINE 2,3-DINOR-11 BETA-PROSTAGLANDIN F2 ALPHA, 24HR URINE Fluids Routine Chronic urticaria Expected: 01/04/2025, Expires: 01/04/2026 [facility] Comment on above: Expected: 01/04/2025, Expires: Start: 01-04-2025 End: 01-04-2026 JLBYTBXIR-URUVO-9,3-GAL ACTOSE IGE [facility] Comment on above: Expected: 01/04/2025, Expires: Start: 01-04-2025 End: 01-04-[address] [facility] Comment on above: Expected: 01/04/2025, Expires: Start: 01-04-2025 End: 01-04-2026 LEUKOTRIENE E4, URINE LEUKOTRIENE E4, URINE Fluids Routine Chronic urticaria Expected: 01/04/2025, Expires: 01/04/2026 [facility] Comment on above: Expected: 01/04/2025, Expires: Start: 01-04-2025 End: 01-04-[address] [facility] Comment on above: Expected: 01/04/2025, Expires: Start: 01-04-2025 End: 01-04-2026 N-METHYLHISTAMINE, 24HR URINE N-METHYLHISTAMINE, 24HR URINE Fluids Routine Chronic urticaria Expected: 01/04/2025, Expires: 01/04/2026 [facility] Comment on above: Expected: 01/04/2025, Expires: Start: 01-04-2025 End: 01-04-2025 Patient encounter procedure 01/04/2025 10:00 AM EDT Office Visit Elsy Michael [address] [place] [address] [address] Jayden Taylor MD [address] [facility], [place] [facility], [place] [id number] Elsy Michael Start: 12-28-2024 End: 12-28-2024 Admission to same day surgery center 12/28/2024 11:00 AM EDT - 12/28/2024 12:00 PM EDT Surgery [facility] [place] [address] [place] [address] Jayden Taylor MD [address] [facility], [place] [place] [address] EXAM UNDER ANESTHESIA/ PELVIC FLOOR BOTOX INJECTION AD ANY INDICATED PROCEDURE [ (CPT )] [facility] [place] Comment on above: EXAM UNDER ANESTHESIA/ PELVIC FLOOR BOTO X INJECTION AD ANY INDICATED PROCEDURE [ (CPT )] Start: 12-28-2024 End: 12-28-2024 Injection single/tactical air control party manager trigger point 3/> muscles INJECTION, TRIGGER POINT Pelvic pain 12/28/2024 11:00 AM EDT [facility] Work Phone: Start: 12-28-2024 Subsequent hospital visit by physician 12/28/2024 9:30 AM EDT Hospital Encounter [facility] [place] [address] [place] [address] Jayden Taylor MD [address] [facility], [place] [facility] [place] [address] [facility] [place] Start: 11-10-2024 End: 11-10-2024 Patient encounter procedure 11/10/2024 3:00 PM EDT Office Visit [facility] [address] [place] [address] [place] [address] [address] [facility], [place] [place] [address] [facility] Start: 11-05-2024 [facility] Start: 09-20-2024 End: 09-20-2025 Choriogonadotropin.beta subunit [Units/volume] in Serum or Plasma HCG, quantitative, Lab Routine , unspecified gestational age ([facility]) Expected: 09/20/2024 (Approximate), Expires: 09/20/2025 [facility] Work Phone: Comment on above: Expected: 09/20/2024 (Approximate), Expi res: 09/20/2025 Start: 09-20-2024 End: 09-20-2025 XR Chest 2 Views XR chest 2 views Imaging Rou siobhan Bronchitis Expected: 09/20/2024, Expires: 09/20/2025 [facility] Service Area Work Phone: Comment on above: Expected: 09/20/2024, Expires: Start: 09-01-2024 End: 09-01-2024 Patient encounter procedure 09/01/2024 4:45 PM EST Appointment [address] [address] [facility] Start: 08-30-2024 End: 08-30-2025 US Kidney - bilateral and Urinary bladder US renal complete Imaging Routine UTI symptoms Expected: 08/30/2024, Expires: 08/30/2025 [facility] Service Area Work Phone: Comment on above: Expected: 08/30/2024, Expires: Start: 06-01-2024 End: 06-01-2024 Patient encounter procedure 06/01/2024 10:30 AM EDT Office Visit Elsy Michael [address] [facility] [address] [place] [address] Jayden Taylor MD [address] [facility], [facility] [address] [place] [address] Elsy Michael Start: 04-28-2024 End: 04-28-2024 Admission to same day surgery center 04/28/2024 7:30 AM EDT - 04/28/2024 10:30 AM EDT [place] [facility] [place] [address] [place] [address] Jayden Taylor MD [address] [facility], [address] [facility] [place] [address] ROBOT ASSIST ENDOMETRIOSIS EXCISION/ CHROMOPERTUBATION/ CYSTOSCOPY/ POSSIBLE BLADDER RESECTION/ ANY INDICATED PROCEDURE [47659 (CPT )] [facility] [place] Comment on above: ROBOT ASSIST ENDOMETRIOSIS EXCISION/ CHR OMOPERTUBATION/ CYSTOSCOPY/ POSSIBLE BLADDER RESECTION/ ANY INDICATED PROCEDURE [55449 (CPT )] Start: 04-28-2024 End: 04-28-2024 Laps abd prtm&omentum dx w/wo spec br/wa spx Virtual [facility] [place] Start: 04-28-2024 Subsequent hospital visit by physician 04/28/2024 6:00 AM EDT Hospital Encounter [facility] [place] [address] [place] [address] Jayden Taylor MD [address] [place] [facility], [address] [place] [address] [facility] [place] Start: 04-27-2024 End: 04-27-2025 CBC W Auto Differential panel - Blood CBC and Auto Differential Lab Routine Health maintenance examination Expected: 04/27/2024 (Approximate), Expires: 04/27/2025 [facility] Service Area Work Phone: Comment on above: Expected: 04/27/2024 (Approximate), Expi res: 04/27/2025 Start: 04-27-2024 End: 04-27-2025 Comprehensive metabolic 2000 panel - Serum or Plasma Comprehensive metabolic panel Lab Routine Health maintenance examination Expected: 04/27/2024 (Approximate), Expires: 04/27/2025 [facility] Work Phone: Comment on above: Expected: 04/27/2024 (Approximate), Expi res: 04/27/2025 Start: 04-27-2024 End: 04-27-2025 TSH with reflex to Free T4 if abnormal TSH with reflex to Free T4 if abnormal Lab Routine Health maintenance examination Expected: 04/27/2024 (Approximate), Expires: 04/27/2025 [facility] Work Phone: Comment on above: Expected: 04/27/2024 (Approximate), Expi res: 04/27/2025 Start: 04-02-2024 COVID-19 Vaccine () COVID-19 Vaccine () [facility] Start: 04-02-2024 COVID-19 Vaccine () COVID-19 Vaccine () [facility] Start: 04-02-2024 Influenza vaccination [facility] Start: 02-18-2024 Patient encounter procedure ANNUAL, Provider: Sharda Chávez, Status: Jeff, Time: 10:45 AM [facility] Work Phone: Start: 02-18-2024 End: 02-18-2024 Patient encounter procedure [facility] Medical Office Building Start: 10-29-2023 End: 10-29-2023 Patient encounter procedure 10/29/2023 3:45 PM EDT Office Visit [facility] Medical Office [facility] [address] [place] [address] Jameel Hernandez MD [address] [facility], [facility] [address] [place] [address] [facility] Medical Office Building Start: 10-21-2023 End: 10-21-2023 Patient encounter procedure 10/21/2023 3:50 PM EDT Office Visit [facility] [address] [place] [address] Sukh Pollock PA-C [address] [place] [address] [facility], [facility] [address] [place] [address] [facility] Start: 10-14-2023 Subsequent hospital visit by physician 10/14/2023 Hospital Encounter [facility] [place] [address] [place] [address] Jameel Hernandez MD [address] [facility], [address] [address] [facility] [place] Start: 09-06-2023 End: 09-06-2023 Patient encounter procedure 09/06/2023 4:10 PM EST Office Visit [address] [phone] Sukh Pollock PA-C [address] [place] [address] [place] [address] [facility] Start: 05-27-2023 End: 05-27-2023 Patient encounter procedure 05/27/2023 12:50 PM EDT Office Visit [address] [phone] Sukh Pollock PA-C 53 [facility] Physician [place] [id number] [facility] Start: 04-02-2023 COVID-19 Vaccine ( season) COVID-19 Vaccine ( season) [facility] Start: 04-02-2023 Influenza vaccination [facility] Start: 03-04-2023 FUV, Provider: Nirmala Alex, Status: Pen, Time: 1:30 PM FUV, Provider: Nirmala Alex, Status: Pen, Time: 1:30 PM [facility] [address] Work Phone: Start: 03-04-2023 End: 03-04-2023 Patient encounter procedure 03/04/2023 9:30 AM EDT Office Visit [facility] [address] [place] [address] Sukh Pollock PAVeraC 53 [facility] [place] [address] [facility] Start: 02-15-2023 Patient encounter procedure [facility] Start: 01-26-2023 End: 01-27-2024 [facility] Work Phone: Comment on above: Expected: 01/26/2023, Expires: 4 Start: 01-26-2023 End: 01-27-2024 XR Lumbar spine 4 Views XR lumbar spine complete 4+ views Imaging Routine Acute bilateral low back pain, unspecified whether sciatica present Expected: 01/26/2023, Expires: 01/27/2024 [facility] Service Area Work Phone: Comment on above: Expected: 01/26/2023, Expires: 4 Start: 01-05-2023 FUV, Provider: Sukh Pollock, Status: Pen, Time: 9:30 AM FUV, Provider: Sukh Pollock, Status: Pen, Time: 9:30 AM [facility] Work Phone: Start: 01-05-2023 End: 01-05-2023 Patient encounter procedure 01/05/2023 9:30 AM EDT Office Visit [facility] [address] [place] [address] Sukh Pollock PAInocencio 53 [facility] [place] [address] [facility] Start: 12-17-2022 FUV, Provider: Jayden Taylor, Status: Pen, Time: 8:45 AM FUV, Provider: Jayden Taylor, Status: Pen, Time: 8:45 AM [facility] Work Phone: Start: 12-02-2022 NPV, Provider: Mariah Lr, Status: Pen, Time: 1:00 PM NPV, Provider: Mariah Lr, Status: Pen, Time: 1:00 PM [facility] Work Phone: Start: 11-30-2022 NEWPROB, Provider: Sharda Chávez, Status: Pen, Time: 1:45 PM NEWPROB, Provider: Sharda Chávez, Status: Pen, Time: 1:[address] Work Phone: Start: 07-02-2022 FUV, Provider: Sukh Pollock, Status: Pen, Time: 4:30 PM FUV, Provider: Sukh Pollock, Status: Pen, Time: 4:30 PM [facility] Work Phone: Start: 05-21-2022 FUV, Provider: Sukh Pollock, Status: Pen, Time: 4:30 PM FUV, Provider: Sukh Pollock, Status: Pen, Time: 4:30 PM [facility] Work Phone: Start: 02-25-2022 FUV, Provider: Solo Barnes, Status: Pen, Time: 9:00 AM FUV, Provider: Solo Barnes, Status: Pen, Time: 9:00 AM [facility] [address] Work Phone: Start: 02-16-2022 PFT, Provider: [facility] PFT ROOM,[id number], Status: Pen, Time: 1:00 PM PFT, Provider: [facility] PFT ROOM,[id number], Status: Pen, Time: 1:00 PM [facility] [address] DO Work Phone: Start: 02-11-2022 FUV, Provider: Solo Barnes, Status: Pen, Time: 10:00 AM FUV, Provider: Solo Barnes, Status: Pen, Time: 10:00 AM [facility] [address] DO Work Phone: Start: 01-28-2022 FUV, Provider: Sharda Chávez, Status: Pen, Time: 10:45 AM FUV, Provider: Sharda Chávez, Status: Pen, Time: 10:45 AM [facility] [address] Work Phone: Start: 01-28-2022 NPV, Provider: Solo Barnes, Status: Pen, Time: 9:00 AM NPV, Provider: Solo Barnes, Status: Pen, Time: 9:00 AM [facility] [address] [employer] Work Phone: Start: 01-14-2022 NPV, Provider: Sharda Chávez, Status: Pen, Time: 11:00 AM NPV, Provider: Sharda Chávez, Status: Pen, Time: 11:00 AM [facility] Work Phone: Start: 2018 Screening for malignant neoplasm of cervix [facility] Start: 2016 Pneumococcal Vaccine: Pediatrics and At-Risk Adult Patients (1 of 2 - PCV) Pneumococcal Vaccine: Pediatrics and At-Risk Adult Patients (1 of 2 - PCV) [facility] Start: 2015 Diabetes mellitus screening Diabetes Screening [facility] Start: 2015 Hepatitis C screening Hepatitis C Screening [facility] Start: 2012 HIV screening HIV SCREENING DISCUSSION [facility] Start: 06-12-2010 Varicella vaccination [facility] Start: 2003 Pneumococcal Vaccine: Pediatrics (0 to 5 Years) and At-Risk Patients (6 to 64 Years) (1 - PCV) Pneumococcal Vaccine: Pediatrics (0 to 5 Years) and At-Risk Patients (6 to 64 Years) (1 - PCV) [facility] Start: 2003 Pneumococcal Vaccine: Pediatrics (0 to 5 Years) and At-Risk Patients (6 to 64 Years) (1 of 2 - PCV) Pneumococcal Vaccine: Pediatrics (0 to 5 Years) and At-Risk Patients (6 to 64 Years) (1 of 2 - PCV) [facility] Start: 1997 COVID-19 Vaccine (#1) COVID-19 Vaccine (#1) [facility] Start: 1997 Hepatitis C screening HEPATITIS C VIRUS SCREENING [facility] Start: 1997 HIV screening HIV Screening [facility] Start: 1997 Yearly Adult Physical Yearly Adult Physical [facility] CBC W Auto Different ial panel - Blood [facility] End: 10-14-2023 Continuous Pulse oximetry, In Phase 1 [facility] Service Area Work Phone: Comment on above: Continuous until discontinued starting 0 10/14/2023 Erythrocyte mean corpuscular volume determination [facility] Hematocrit [Volume Fraction] of Blood [facility] Hemoglobin [Mass/volume] in Blood [facility] Hepatitis B virus surface Ag [Presence] in Serum [facility] History of appendectomy History of append ectomy [facility] History of colonoscopy [facility] Laps abd prtm&omentu m dx w/wo spec br/wa spx Exploration Laparoscopy Chronic pelvic pain in female Virtual LAN OR Laps abd prtm&omentu m dx w/wo spec br/wa spx Exploration Laparoscopy Endometriosis determined by laparoscopy Virtual PAR OR Leukocytes [#/volume ] in Blood [facility] Mean corpuscular hemoglobin concentration determination [facility] Mean corpuscular hemoglobin determination [facility] Neisseria gonorrhoea e rRNA [Presence] in Unspecified specimen by SHANAE with probe detection [facility] Neutrophil count [facility] Neutrophil percent differential count [facility] Past history of procedure History of esophagogastroduodenoscopy (EGD) [facility] Patient Education Living with Endometrios is [facility] Work Phone: Patient referral [facility] Work Phone: PCR test for Chlamyd ia trachomatis [facility] Platelets [#/volume] in Blood [facility] Red blood cell count [facility] Red cell distributio n width determination [facility] Surgical pathology study [facility] Work Phone: Comment on above: Release Upon Ordering for 1 Occurrences starting 04/28/2024, 1 completed Urine culture [facility] End: 08-31-2024 US Kidney - bilateral and Urinary bladder [facility] Service Area Work Phone: Comment on above: Once for 1 Occurrences starting 08/31/19 until 08/31/2024 [place] teeth extracted [place] teeth extra cted [facility] End: 09-22-2024 XR Chest 2 Views [facility] Service Area Work Phone: Comment on above: Once for 1 Occurrences starting 09/22/19 until 09/22/2024 [facility] Immunizations Immunization Date Immunization Notes Care Provider Fa quan 02-04-2020 tetanus toxoid, redu bette diphtheria toxoid, and acellular pertussis vaccine, adsorbed Sukh Pamela Simpsoncady Work Phone: [facility] 02-06-2014 meningococcal polysaccharide (groups A, C, Y and W-135) diphtheria toxoid conjugate vaccine (MCV4P) Sukh Pollock Work Phone: [facility] 05-15-2011 hepatitis A vaccine, pediatric/adolescent dosage, 2 dose schedule Sukh Pollock Work Phone: [facility] Work Phone: 05-15-2011 hepatitis A vaccine, unspecified formulation Sukh Newbill PA-C Work Phone: [facility] Work Phone: 05-15-2011 influenza, seasonal, injectable Sukh Pamela Simpsoncady Work Phone: [facility] 05-15-2011 influenza virus vacc ine, unspecified formulation Sukh Simpsonl PA-C Work Phone: [facility] Work Phone: 05-15-2010 influenza virus vacc ine, live, attenuated, for intranasal use Sukh Pamela Eliasbill Work Phone: [facility] Work Phone: 11-20-2009 hepatitis A vaccine, pediatric/adolescent dosage, 2 dose schedule Sukh Pamela Newbill Work Phone: [facility] Work Phone: 11-20-2009 hepatitis A vaccine, unspecified formulation Sukh Newbill PA-C Work Phone: [facility] Work Phone: 11-20-2009 HPV, unspecified formulation Sukh Newbill PA-C Work Phone: [facility] Work Phone: 11-20-2009 human papilloma viru s vaccine, quadrivalent Sukh Pamela Newbill Work Phone: [facility] Work Phone: 07-17-2009 HPV, unspecified formulation Sukh Newbill PA-C Work Phone: [facility] Work Phone: 07-17-2009 human papilloma viru s vaccine, quadrivalent Sukh Griffinbill Work Phone: [facility] Work Phone: 05-15-2009 HPV, unspecified formulation Sukh Newbill PA-C Work Phone: [facility] Work Phone: 05-15-2009 human papilloma viru s vaccine, quadrivalent Sukh Griffinbill Work Phone: [facility] Work Phone: 05-15-2009 influenza, seasonal, injectable, preservative free Sukh Pollock Work Phone: [facility] Work Phone: 05-15-2009 meningococcal polysaccharide (groups A, C, Y and W-135) diphtheria toxoid conjugate vaccine (MCV4P) Sukh Pamela Pollock Work Phone: [facility] 05-15-2009 tetanus toxoid, redu bette diphtheria toxoid, and acellular pertussis vaccine, adsorbed Sukh Pamela Pollock Work Phone: [facility] 03-23-2002 diphtheria, tetanus toxoids and acellular pertussis vaccine Sukh Simpsonl PA-C Work Phone: [facility] Work Phone: 03-23-2002 diphtheria, tetanus toxoids and acellular pertussis vaccine, unspecified formulation Sukh M Newbill Work Phone: [facility] Work Phone: 03-23-2002 pneumococcal conjuga te vaccine, 7 valent Sukh M Newbill Work Phone: [facility] Work Phone: 03-23-2002 pneumococcal Conjuga te, unspecified formulation Sukh Newbill PA-C Work Phone: [facility] Work Phone: 03-23-2002 poliovirus vaccine, inactivated Sukh M Newbill Work Phone: [facility] Work Phone: 03-23-2002 poliovirus vaccine, unspecified formulation Sukh Newbill PA-C Work Phone: [facility] Work Phone: 02-09-2001 pneumococcal conjuga te vaccine, 7 valent Sukh M Newbill Work Phone: [facility] Work Phone: 02-09-2001 pneumococcal Conjuga te, unspecified formulation Sukh Newbill PA-C Work Phone: [facility] Work Phone: 09-01-2000 diphtheria, tetanus toxoids and acellular pertussis vaccine, unspecified formulation Sukh M Newbill Work Phone: [facility] Work Phone: 09-01-2000 measles, mumps and rubella virus vaccine Sukh M Newbill Work Phone: [facility] Work Phone: 11-19-1999 diphtheria, tetanus toxoids and acellular pertussis vaccine Sukh Newbill PA-C Work Phone: [facility] Work Phone: 11-19-1999 diphtheria, tetanus toxoids and acellular pertussis vaccine, unspecified formulation Sukh Santiago Newbill Work Phone: [facility] Work Phone: 11-19-1999 haemophilus influenz ae type b conjugate and Hepatitis B vaccine Sukh Pamela Newbill Work Phone: [facility] Work Phone: 11-19-1999 haemophilus influenz ae type b vaccine, conjugate unspecified formulation Sukh Newbill PA-C Work Phone: [facility] Work Phone: 11-19-1999 hepatitis B vaccine, unspecified formulation Sukh Newbill PA-C Work Phone: [facility] Work Phone: 11-19-1999 measles, mumps and rubella virus vaccine Sukh Santiago Newbill Work Phone: [facility] Work Phone: 11-19-1999 poliovirus vaccine, unspecified formulation Sukh Newbill PA-C Work Phone: [facility] Work Phone: 11-19-1999 trivalent poliovirus vaccine, live, oral Sukh Simpsonl Work Phone: [facility] Work Phone: 01-01-1999 diphtheria, tetanus toxoids and acellular pertussis vaccine Sukh Newbill PA-C Work Phone: [facility] Work Phone: 01-01-1999 diphtheria, tetanus toxoids and acellular pertussis vaccine, unspecified formulation Sukh Pamela Newbill Work Phone: [facility] Work Phone: 01-01-1999 haemophilus influenz ae type b conjugate and Hepatitis B vaccine Sukh M Newbill Work Phone: [facility] Work Phone: 01-01-1999 haemophilus influenz ae type b vaccine, conjugate unspecified formulation Sukh Newbill PA-C Work Phone: [facility] Work Phone: 01-01-1999 hepatitis B vaccine, unspecified formulation Sukh Newbill PA-C Work Phone: [facility] Work Phone: 01-01-1999 poliovirus vaccine, unspecified formulation Sukh Newbill PA-C Work Phone: [facility] Work Phone: 01-01-1999 trivalent poliovirus vaccine, live, oral Sukh Pamela Newbill Work Phone: [facility] Work Phone: 1997 diphtheria, tetanus toxoids and acellular pertussis vaccine Sukh Newbill PA-C Work Phone: [facility] Work Phone: 1997 diphtheria, tetanus toxoids and acellular pertussis vaccine, unspecified formulation Sukh M Newbill Work Phone: [facility] Work Phone: 1997 haemophilus influenz ae type b conjugate and Hepatitis B vaccine Sukh M Newbill Work Phone: [facility] Work Phone: 1997 haemophilus influenz ae type b vaccine, conjugate unspecified formulation Sukh Newbill PA-C Work Phone: [facility] Work Phone: 1997 hepatitis B vaccine, unspecified formulation Sukh Newbill PA-C Work Phone: [facility] Work Phone: 1997 poliovirus vaccine, unspecified formulation Sukh Tatianacady PA-C Work Phone: [facility] Work Phone: 1997 trivalent poliovirus vaccine, live, oral Sukh Pollock Work Phone: [facility] Work Phone: Payers Date Payer Category Payer Self-pay 2023 Managed Care (Private) [facility] [id number] 2023 Managed Care (unspecified) MMO [id number] 2021 Unknown [id number] 2017 Unknown 2017 Unknown [id number] 1997 Unknown [id number] 2.16.840.1.225683.3.579.2. 1069 1997 Unknown [id number] 2.16.840.1.295668.3.579.2. 1069 1997 Unknown [id number] 2.16.840.1.392792.3.579.2. 1069 1997 Unknown [id number] 2.16.840.1.261958.3.579.2. 1069 1997 Unknown [id number] 2.16.840.1.046913.3.579.2. 356 1997 Unknown [id number] 2.16.840.1.164794.3.579.2. 356 1997 Unknown [id number] 2.16.840.1.288506.3.579.2. 356 1997 Unknown [id number] 2.16.840.1.577907.3.579.2. 356 1997 Unknown [id number] 2.16.840.1.342131.3.579.2. 356 1997 Unknown [id number] 2.16.840.1.919690.3.579.2. 356 1997 Unknown [id number] 2.16.840.1.594344.3.579.2. 356 1997 Unknown [id number] 2.16.840.1.496024.3.579.2. 356 1997 Unknown [id number] 2.16.840.1.751820.3.579.2. 902 1997 Unknown [id number] 2.16.840.1.754355.3.579.2. 1247 1997 Unknown [id number] 2.16.840.1.418174.3.579.2. 1247 1997 Unknown [id number] 2.16.840.1.488642.3.579.2. 1247 1997 Unknown [id number] 2.16.840.1.041468.3.579.2. 1243 1997 Unknown [id number] 2.16.840.1.902699.3.579.2. 1243 1997 Unknown [id number] 2.16.840.1.555279.3.579.2. 1243 1997 Unknown [id number] 2.16.840.1.944272.3.579.2. 1243 1997 Unknown [id number] 2.16.840.1.011441.3.579.2. 1243 1997 Unknown [id number] 2.16.840.1.039992.3.579.2. 594 1997 Unknown [id number] 2.16.840.1.077034.3.579.2. 594 1997 Unknown [id number] 2.16.840.1.839985.3.579.2. 594 1997 Unknown [id number] 2.16.840.1.057708.3.579.2. 1245 1997 Unknown [id number] 2.16.840.1.136225.3.579.2. 1245 1997 Unknown [id number] 2.16.840.1.354195.3.579.2. 479 1997 Unknown [id number] 2.16.840.1.174098.3.579.2. 479 1997 Unknown [id number] 2.16.840.1.282604.3.579.2. 1244 1997 Unknown [id number] 2.16.840.1.375603.3.579.2. 1244 1997 Unknown [id number] 2.16.840.1.929340.3.579.2. 1244 1997 Unknown [id number] 2.16.840.1.966235.3.579.2. 1244 1997 Unknown [id number] 2.16.840.1.510527.3.579.2. 1244 Unknown [id number] Unknown [id number] Unknown [id number] 2.16.840.1.726228.3.579.2. 462 Unknown [id number] 2.16.840.1.618473.3.579.2. 462 Unknown [id number] 2.16.840.1.304748.3.579.2. 462 Unknown [id number] 2.16.840.1.848642.3.579.2. 462 Unknown [id number] 2.16.840.1.684309.3.579.2. 462 Unknown [id number] 2.16.840.1.749338.3.579.2. 462 Unknown [id number] 2.16.840.1.653738.3.579.2. 462 Unknown [id number] 2.16.840.1.972981.3.579.2. 462 Unknown [id number] 2.16.840.1.215287.3.579.2. 462 Unknown [id number] 2.16.840.1.302085.3.579.2. 462 Unknown [id number] 2.16.840.1.438789.3.579.2. 462 Unknown [id number] 2.16.840.1.337214.3.579.2. 462 Unknown [id number] 2.16.840.1.414276.3.579.2. 462 Social History Date Type Detail Facility Start: 11-03-2022 End: 04-28-2023 Uses control Uses control -[facility] Work Phone: Tobacco smoking consumption unknown [facility] Start: 11-03-2022 End: 01-12-2025 Tobacco smoking status NHIS Never smoked tobacco [facility] Start: 11-03-2022 End: 01-02-2025 Alcohol intake Current drinker of alcohol (finding) [facility] Work Phone: Start: 11-03-2022 End: 04-28-2023 Tobacco use panel [facility] Work Phone: Start: 1995 Sex Assigned At Not on file [facility] Work Phone: Start: 10-24-2022 End: 01-02-2025 Exposure to SARS-CoV-2 (event) Not sure [facility] Start: 01-26-2023 End: 10-11-2023 Tobacco use and exposure Smokeless tobacco non-user [facility] Work Phone: Start: 09-24-2023 Alcohol Comment socially- 3-5 a ashley h [facility] Work Phone: Start: 10-11-2023 Tobacco smoking status NHIS Occasional tobacco smoker [facility] History of tobacco use Cigarette Smoker [facility] Work Phone: Start: 10-11-2023 Tobacco Comment socially [facility] Work Phone: Start: 1995 Sex Assigned At Female [facility] Start: 10-14-2023 Gender identity Identifies as female gender (finding) [facility] Work Phone: Start: 06-04-2024 End: 11-24-2024 Exposure to SARS-CoV-2 (event) Unable to assess [facility] Start: 11-05-2024 End: 11-23-2024 Sex Female (finding) [facility] Start: 01-04-2025 Alcohol Comment social [facility] Start: 12-08-2024 [facility] NEGATED: Highlighted row - - [facility] [employer] Work Phone: Goals Date Patient Goal Desired Activity /State Personal health goal Functional Status Date Assessment Result Facility NEGATED: Highlighted row Functional performance Functional status health issues are not documented Disease [facility] [employer] Phone: Mental Status Date Assessment Result Facility NEGATED: Highlighted row Cognitive function [Interpretation] Cognitive status health issues are not documented Disease [facility] Phone: Clinical Notes 01-10-2018 to 05-17-2025 Note Date & Type Note Facility 05-17-2025 Progress note [facility] 05-17-2025 Progress note Note Date/Time May 17, 2025 4:12pm [facility] ealt System [facility] [address], [address] [place] [address] OFFICE VISIT Date of Service: 05/17/25 MR#: [id number] Acct: [id number] Name: KM STRANGE Rep #: [id number] : 1995 Provider: Dr. Mary Aragon DO Age/Sex: 29/F Location: [facility] Status: Signed Intake Vital Signs 02/22/25 09:25 04/18/25 08:21 05/17/25 15:51 05/17/25 15:52 Height 5 ft 5 ft 5 ft 5 ft Weight: 154 lb 6 oz BMI 30.1 BP 111/74 Intake Visit Reasons: 24w 6d OB Mallet Cutter Required: No Is patient in pain?: No Allergies Sulfa (Sulfonamide Antibiotics) Allergy (Intermediate, Verified 05/17/25 15:51) Hives Medications ?Medication ?Instructions ?Recorded ?Confirmed ?Type pantoprazole 40 mg tablet,delayed 40 mg PO DAILY 02/1805/17/25 History release ondansetron 4 mg disintegrating 4 mg PO Q8H PRN PRN Na usea #10 tabs 11/05/24 05/17/25 Rx tablet coQ10 (ubiquinol) 100 mg capsule 100 mg PO BID 05/17/25 History (QH-absorb) docosahexaenoic acid 200 mg mg PO 01/12/25 05/17/25 Hi story capsule ( DHA) docusate sodium 100 mg capsule 100 mg PO QDAY 01/12/25 05/17/25 History loratadine 10 mg tablet (Claritin) 10 mg PO QDAY 01/1205/17/25 History sertraline 50 mg tablet (Zoloft) 50 mg PO QDAY 5 05/17/25 History famotidine 20 mg tablet (Pepcid) 20 mg PO BID #60 tabs 05/03/25 05/17/25 Rx Last Menstrual Period: 11/24/24 Zika: Zika virus screening: Negative : No PFSH PFSH Medical History Arthritis Asthma Surgical History S/P laparoscopic procedure History of appendectomy Family History Mother Diabetes Hypertension Thyroid cancer Cervical cancer Father Hypertension Social History adopted: No household members: spouse housing: house current occupational status: employed 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 OB Visit ERIN Calculator Estimated Delivery Date Method Current WG Current Estimate 08/31/25 LMP (Certain) 24w 6d Expected Delivery Route/Plan Labor Preferences- CB/BF [...] in visit notes/problem list details Initial Weight: 117 lb Date -?-?-?-?-?-?-?-?-?-?-?-?- EGA Weight BP Urine Prot -?-?-?-?-?-?-?-?-?-?-?-?- Glucose FHR FuHt Pres Dilation -?-?-?-?-?-?-?-?-?-?-?-?- Effaced St Visit Note 01/26/25 -?-?-?-?-?-?-?-?-?-?-?-?- 9w 0d 128 lb 8 oz (+11 lb 8 oz) 106/74 -?-?-?-?-?-?-?-?-?-?-?-?- 175 -?-?-?-?-?-?-?-?-?-?-?-?- LC- CRL 1.75cm c on with lmp. declines nipt. 02/22/25 -?-?-?-?-?-?-?-?-?-?-?-?- 12w 6d 133 lb 6 oz (+16 lb 6 oz) 103/72 Negative -?-?-?-?-?-?-?-?-?-?-?-?- Negative 150 -?-?-?-?-?-?-?-?-?-?-?-?- SM- no vb crampi ng discussed PFPT to help with pelvic floor dysfunction 03/19/25 -?-?-?-?-?-?-?-?-?-?-?-?- 16w 3d 142 lb 6 oz (+25 lb 6 oz) 103/70 Negative -?-?-?-?-?-?-?-?-?-?-?-?- Negative 154 -?-?-?-?-?-?-?-?-?-?-?-?- KW- no vb/crampi ng. having some pelvic pressure- 10 dip normal but will send for culture. declines AFP. MFM US scheduled. 04/18/25 -?-?-?-?-?-?-?-?-?-?-?-?- 20w 5d 146 lb 9 oz (+29 lb 9 oz) 110/70 Negative -?-?-?-?-?-?-?-?-?-?-?-?- Negative 150 -?-?-?-?-?-?-?-?--?-?-?-?- MH-No VB. Magdiel banda. Reviewed use pepcid for heartburn. 05/17/25 -?-?-?-?-?-?-?-?-?-?-?-?- 24w 6d 154 lb 6 oz (+37 lb 6 oz) 111/74 Negative -?-?-?-?-?-?-?-?-?-?-?-?- Negative 157 25.5 -?-?-?-?-?-?-?-?-?-?-?-?- JV- patient has IC and never knows if has bladder infection vs IC flare. plan to do cultures regularly going forward. possibly every other week. gct ordered. declines flu vaccine. + fm. no lof, vaginal bleeding. ACOG First Trimester First Trimester: Desire for , Alcohol, Tobacco Cessation, Illicit/Recreational Drug/Substance Use, Intimate Partner Violence, Barriers to care, Unstable Housing, Communication Barriers, Environmental/Work Hazards, Anticipated Course of Care, Toxoplasmosis Precations, Use of Any medications, Sexual activity, Exercise, Dental Care, Sauna/Hot tub use, Seat Belt use, Childbirth classes/Hospital facilities, Travel, Indications for Ultrasound and Screening for Aneuploidy; Discussed Results POC Urinalysis 2 Dip (Clinic) Office Urine Glucose Negative Last Edit by Palak Franklin on 05/17/25 16: 09 Office Urine Protein Negative Last Edit by Palak Franklin on 05/17/25 16: 09 Coding Level of Care Code OB Routine Diagnoses Pelvic floor dysfunction in female M62.89 Supervision of high risk in second trimester O09.92 Trimester: second trimester 24 weeks gestation of Z3A.24 Weeks of gestation: 24 weeks Anxiety F41.9 Depression, unspecified depression type F32.A Depression Type: unspecified Gastroesophageal reflux disease with esophagitis without hemorrhage K21.00 Esophagitis bleeding: without hemorrhage Esophagitis presence: with esophagitis Interstitial cystitis N30.10 Assessment and Plan Assessment and Plan (1) Pelvic floor dysfunction in female: Status: Acute Comment: PFPT with freya toño, cleared for vaginal exams as long as no bleeding. (2) Supervision of high-risk : Status: Acute Qualifiers: Trimester: second trimester Qualified Code(s): O09.92 - Supervision of high risk , unspecified, second trimester Comment: PRR ERIN 08/31/25, : Vinny (3) : Status: Acute Qualifiers: Weeks of gestation: 24 weeks Qualified Code(s): Z3A.24 - 24 weeks gestation of Comment: Discussed genetic/carrier testing -declines. Anatomy nl. (4) Anxiety: Status: Acute Comment: Zoloft (5) Depression: Status: Acute Qualifiers: Depression Type: unspecified Qualified Code(s): F32.A - Depression, unspecified Comment: Zoloft (6) Acid reflux: Status: Acute Qualifiers: Esophagitis bleeding: without hemorrhage Esophagitis presence: with esophagitis Qualified Code(s): K21.00 - Gastro-esophageal reflux disease with esophagitis, without bleeding Comment: Pantopazole (7) Interstitial cystitis: Status: Acute Comment: urine cultures every other visit - patient unsure when has an IC flare vs bladder infection. Orders: Orders POC Urinalysis 2 Dip (Clinic) Today CBC W/Diff, Automated Today O09.92 - Supervision of high risk , unspecified, second trimester Glucose Challenge Gest 1H 50g Today O09.92 - Supervision of high risk , unspecified, second trimester, Z13.1 - Encounter for screening for diabetes mellitus HIV Today O09.92 - Supervision of high risk , unspecified, second trimester Syphilis Antibodies Today O09.92 - Supervision of high risk , unspecified, second trimester 05/17/25 1612 <Electronically signed by Kirsten Wilde DO> Date _ Kirsten Aragon DO Cosigner Signature: Date (if applicable) CC: ~ [facility] Work Phone: 1(244) 308-889208-18-2025 Progress [facility] [address] [place] [address], [address] [place] [address] OFFICE VISIT Date of Service: 03/19/25 MR#: [id number] Acct: [id number] Name: KM STRANGE Rep #: [id number] : 1995 Provider: SHI Harrell Age/Sex: 29/F Location: [facility] Status: Signed Intake Vital Signs 01/26/25 13:35 02/22/25 09:25 03/19/25 15:12 Height 5 ft 5 ft 5 ft Weight: 142 lb 6 oz BMI 27.8 BP 103/70 Intake Visit Reasons: 17wk ob Chief Complaint: 17wk OB Mallet Cutter Required: No Is patient in pain?: No [...] status: employed 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 Relevant counseling for the gestational age provided. [...] but will send for culture. declines AFP. MFM US scheduled. ACOG First Trimester First Trimester: Desire for , Alcohol, Tobacco Cessation, Illicit/Recreational Drug/Substance Use, Intimate Partner Violence, Barriers to care, Unstable Housing, Communication Barriers, Environmental/Work Hazards, Anticipated Course of Care, Toxoplasmosis Precations, Use of Any med ications, Sexual activity, Exercise, Dental Care, Sauna/Hot tub [...] Freire on 03/19/25 15:24 Off Ur Spec Neversink 1.010 Last Edit by Marta Freire on [...] information and see below for orders placed atthis visit. [place] appropriate handout given. 03/19/25 1531 s SHI> Date Cristóbal Harrell CNM Cosigner Signature: Date (if applicable) CC: ~ [facility]08-18-2025 Progress note Author Kelsey Harrell [facility] Note Date/Time March 19, 2025 3: 31pm [facility] ealt System [facility] [address] [place] [address], [address] [place] [address] OFFICE VISIT Date of Service: 03/19/25 MR#: [id number] Acct: [id number] Name: KM STRANGE Rep #: [id number] : 1995 Provider: SHI Harrell Age/Sex: 29/F Location: [facility] Status: Signed Intake Vital Signs 01/26/25 13:35 02/22/25 09:25 03/19/25 15:12 Height 5 ft 5 ft 5 ft Weight: 142 lb 6 oz BMI 27.8 BP 103/70 Intake Visit Reasons: 17wk ob Chief Complaint: 17wk OB Mallet Cutter Required: No Is patient in pain?: No [...] status: employed 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 declines AFP. MFM US scheduled. ACOG First Trimester First Trimester: [...] Freire on 03/19/25 15:24 Off Ur Spec Neversink 1.010 Last Edit by Marta Freire on [...] female: Status: Acute Comment: PFPT with freya allan, cleared for vaginal exams as long as [...] this visit. GA appropriate handout given. 03/19/25 7490 <Electronically signed by Kelsey park CNM> Date _ Kelsey Harrell CNM Cosigner Signature: Date (if applicable) CC: ~ [place] [email or web address] [facility] Work Phone: 1(389) 184-558207-24-2025 Evaluation note* Diagnosis Onset Date Resolution Status Admit Date Acid reflux acute February 22 9:19am Anxiety [...] of high-risk acute April 18, 2025 8:19am Acid reflux acute May 17, 2025 3:48pm Anxiety acute May 17, 2025 3:48pm Depression acute May 17, 2025 3:48pm Interstitial cystitis acute May 3:48pm Pelvic floor dysfunction in female acute May 17 3:48pm acute May 17, 2025 3:48pm Supervision of high-risk acute May 17 3:48pm [place] [email or web address] [facility] Work Phone: [phone] Evaluation note* Diagnosis Onset Date Resolution Status [...] of high-risk acute January 26, 2025 1:31pm [facility] Work Phone: [phone] Evaluation note* Diagnosis Onset Date Resolution Status Admit Date Amenorrhea acute January 12 8:09am Acid reflux acute January 26 1:31pm Anxiety acute January 26 1:31pm Depression acute January 26 1:31pm Endometriosis acute January 26, 2025 1:31pm IBS (irritable bowel syndrome) acute January 26, 2025 1:31pm Infertility acute January 26 1:31pm acute January 26 1:31pm Supervision of high-risk acute January 26, 2025 1:31pm [facility] Work Phone: 1([phone] 528-160306-13-2025 Evaluation note* Diagnosis Onset Date Resolution Status [...] of high-risk acute February 22, 2025 9:19am [facility] Work Phone: [phone] Evaluation note* Diagnosis Onset Date Resolution Status [...] 2 025 3:03pm Depression acute March 19, 2 025 3:03pm Pelvic floor dysfunction in female acute March 19 3:03pm acute March 19, 2 025 3:03pm Supervision of high-risk acute March 19 3:03pm [facility] Work Phone: 1([phone]) 471-509306-13-2025 Evaluation note* Diagnosis Onset Date Resolution Status [...] female acute February 22, 2025 9:19am acute Gita 24th, 202 5 9:19am Supervision of high-risk acute February 22, 2025 9:19am Acid reflux acute March 19, 2025 3:03pm Anxiety acute March 19, 2 025 3:03pm Depression acute March 19, 2 025 3:03pm Pelvic floor dysfunction in female acute March 19 3:03pm acute March 19, 2 025 3:03pm Supervision of high-risk acute March 19 3:03pm Acid reflux acute April 8:19am Anxiety acute April 8:19am Depression acute April 8:19am Pelvic floor dysfunction in female acute April 18, 2025 8:19am acute April 8:19am Supervision of high-risk acute April 18, 2025 8:19am [place] [email or web address] [facility] Work Phone: [phone] History of Present illness Narrative* Lisa Lemos [...] history IBS-C and endometriosis who is at [id number] presents to the [facility] clinic today for initial [...] Pepcid 20 mg twice per day, and [id number] mg once. She was recently seen in [facility]. She noted severe bladder pain and diagnosisof [...] of Present Illness The patient is a [id number]-female who presents for evaluation of an allergic reaction and mast cell activation syndrome. (AI note music writer used incorrect pronouns - pronouns should [...] do not hesitate to contact me at [phone]. 60 minutes was spent on care of [...] the time total above. Johann Haines M.D. Woods Boss - Clinical [facility] Instructions* Patient Instructions* Johann Haines MD - [...] experience worsening symptoms, please reach out through [employer] or call the office. FODMAPs (Fermentable Oligosaccharides, [...] bananas, sweet cherries, plums Vegetables: Broccoli, beets, [place] sprouts, sweet potato Dairy Products: Yogurt, soft cheeses in moderate quantities Grains: [place] bread, wheat bread in small amounts Nuts [...] and maintain nutritional balance. [facility] History of Present illness Narrative* Chad [...] Scribe Attestation By signing my name below, I Edna Aguiarus, Scribalejandro attest that this documentation has been prepared under the direction and in the presence of Chad Valdez MD. [1] Family History Problem Relation Name Age of Onset Cervical cancer Mother Shanzeina Hanning Depression Mother Shanzeina Hanning Diabetes Mother Shanzeina Hanning Hypertension Mother Shanzeina Hanning Cancer Mother Shanzeina Hanning Thyroid cancer Mother Shanzeina Hanning Migraines Mother Shanzeina Hanzeina migraine headaches Arthritis Mother Shanzeina Hanzeina Mental illness Mother Therese Hunt Asthma Father Alexandre Hanning Depression Father Alexander Hanning Hypertension Father Alexander Hanning Migraines Father Alexander Hanzeina migraine headaches Sleep apnea Father Alexander Hunt Irregular heart beat Father Alexander Hunt Anesthesia related problems Father Alexander Hunt Arthritis Father Alexander Hanzeina Heart disease Father Alexander Hunt Mental illness Father Alexander Hunt Asthma Sister Bonnieapolinar Hunt Depression Brother Kip Hanzeina Arthritis Brother Kip Hanning Cancer Maternal Grandmother Marcie Lee documented in this encounterWilson Health Work Phone: [phone] History of Present illness Narrative* TOM Combs - 11/24/2024 10:30 AM EDT Subjective Patient [...] visit on documentation, etc documented in this encounterWilson Health Work Phone: [phone] 350-806904-24-2025 Emergency department Note* Les Pereira RP - 11/23/2024 6:46 AM EDT Department of Pharmacy ED Discharge Prescription Review Patient: Km Strange Due to the specific medication prescribed, the following ED discharge prescriptions were reviewed prior to discharge at 11/23/2024 6:46 AM: Epinephrine 0.3 mg/0.3mL autoinjector Based upon review of above discharge prescriptions, No interventions were necessary for the above prescription(s). Epipen education provided to patient using [facility] Patient Education materials. Medication action, dosage, precautions, side effects, administration, schedule, food-drug/drug-drug interactions, and herbal/dietary supplement interactions reviewed. Patient verbalized understanding. No follow-up actions are necessary at this time. Please feel free to contact me with any further questions. Name: Les Pereira RPH Phone: [phone] Date/Time: 11/23/2024 6:46 AM Time spent: [address] [facility]04-[facility] Emergency department Note* Les Pereira RPH [...] prescription(s). Epipen education provided to patient using [facility] Patient Education materials. Medication action, dosage, precautions, side effects, administration, schedule, food-drug/drug-drug interactions, and herbal/dietary supplement interactions reviewed. Patient verbalized understanding. No follow-up actions are necessary at this time. Please feel free to contact me with any further questions. Name: Les Pereira RPH Phone: [phone] Date/Time: 11/23/2024 6:46 AM Time spent: 10 [...] MD 11/23/24 This note was dictated using [employer] Dictation Software. Attempts at proofreading have been made, however errors may still occasionally occur. Jonathon Brown MD Resident 11/23/24 0225 * Jessica Vasquez RN - 11/23/2024 1:54 [...] for further evaluation. documented in this encounter[facility] Emergency department Note* Valdo Buck RN - 11/23/2024 2:44 AM EDT Bed: E053 Expected date: Expected time: Means of arrival: Comments: FT [facility] Hospital Discharge instructions* Discharge Instructions* Jonathon Brown [...] - We wrote a referral to an arborist to further explore these reactions and assist [...] breath, nausea and vomiting. documented in this encounter[facility] Physician Emergency department Note* Jonathon Brown MD [...] MD 11/23/24 This note was dictated using [employer] D[employer]. Attempts at proofreading have been made, however errors may still occasionally occur. Jonathon Brown MD Resident 11/23/[address] [facility] Emergency department Note* Jessica Vasquez RN [...] normal. Came to ED for further evaluation. [facility]04-[facility] [facility] Medical Records Department [address] [place] [address] Emergency Department Summary 11/05/24 MR#: [id number] Acct: [id number] Name: KM STRANGE Rep #:[id number] : [...] Oxygen Delivery Method Room Air Room Air [facility] MDM Narrative Medical decision making narrative: HISTORY [...] History obtained from others: family Consults: none MDM Narrative: Patient was hemodynamically stable, afebrile nontoxic-appearing. [...] flare of her endometriosis. NSAIDs encouraged. Close FIELD MARKETING DIRECTOR follow-up recommended. Strict return precautions were discussed. [...] Discharge home This note was generated with Dragon dictation software. It may contain incorrectwords, spelling, [...] % (Auto) 55.2 Lymph % (Auto) 32.5 [place] % (Auto) 9.9 Eos % (Auto) 1.8 [...] Clarity Clear Urine pH 7.0 Ur Specific [place] 1.010 Urine Protein Negative Urine Glucose (UA) [...] Sukh Pollock PA [Non-Staff] - Print Language: Egyptian What to do if you have Problems For any increased pain, shortness of breath, bleeding, nausea or vomiting, chestpain, or any unexpected problems, contact your Primary Care Provider. Call [facility] ([phone]) or report tothe closest Emergency Room. Call 911 if necessary. 11/05/24 1752 Cosigner Signature (if applicable): CC: CARLA Doss ~ Signed [facility]04-06-2025 Radiology Diagnostic study note [facility] Imaging Services [address] [place], [place] [address] Abdomen/Pelvis without Cont MR#: [id number] Acct: [id number] Name: KM STRANGE Rep #: [id number] : 1995 F 29 From: Abelardo Dykes DO PCP: CARLA Plascencia Status: REG ER Study:Abdomen/Pelvis without Cont Date of Exa m: 11/05/24 Exam# [id number] Ordering Dr: Amara Schneider DO PROCEDURE: ABDOMEN/PELVIS [...] HYDRONEPHROSIS. NO ACUTE FINDINGS. Reading Location: [facility] CC: CARLA Doss; Dr. Daniel Schneider DO ~ Mushroom Cutter: Signed [facility]04-06-2025 Discharge summary Author Daniel Schneider [facility] Note Date/Time November 05, 2024 5:52 pm [facility] Medical Records Department [address] [place] [address] Emergency Department Summary 11/05/24 MR#: [id number] Acct: [id number] Name: KM STRANGE Rep #:[id number] : [...] Oxygen Delivery Method Room Air Room Air [facility] Narrative Medical decision making narrative: HISTORY OF [...] reviewed, Vital signs reviewed Constitutional: please see [facility] HENT: MMM Eyes: Pupils equal round and [...] History obtained from others: family Consults: none [facility] Narrative: Patient was hemodynamically stable, afebrile nontoxic-appearing. [...] flare of her endometriosis. NSAIDs encouraged. Close FIELD MARKETING DIRECTOR follow-up recommended. Strict return precautions were discussed. [...] Discharge home This note was generated with [employer] dictation software. It may contain incorrectwords, spelling, [...] % (Auto) 55.2 Lymph % (Auto) 32.5 [place] % (Auto) 9.9 Eos % (Auto) 1.8 [...] Clarity Clear Urine pH 7.0 Ur Specific [place] 1.010 Urine Protein Negative Urine Glucose (UA) [...] OR HYDRONEPHROSIS. NO ACUTE FINDINGS. [facility] Triage Chief Complaint: Abd Pain [...] Sukh Pollock PA [Non-Staff] - Print Language: Egyptian What to do if you have Problems For any increased pain, shortness of breath, bleeding, nausea or vomiting, chestpain, or any unexpected problems, contact your Primary Care Provider. Call [facility] ([phone]) or report to the closest Emergency Room. Call 911 if necessary. 11/05/24 5572 <Electronically signed by Daniel Schneider DO> Cosigner Signature (if applicable): CC: CARLA Doss ~ Signed [facility] Work Phone: 1([phone]) 196-746202-19-2025 History of Present illness Narrative* TOM Combs - 09/20/2024 2:50 PM EST Subjective Patient [...] chest 2 views , unspecified gestational age ([facility]) Z34.90 Relevant Orders HCG, quantitative, Bronchitis -Completed azithromycin and bromfed PRN -Chest xray ordered, pt concerned about pneumonia -Encouraged supportive care with rest, hydration, and NSAIDs for fever -HCG blood ordered documented in this encounterWilson Health Work Phone: [phone] 419-486502-08-2025 History of Present illness Narrative* TOM Lazo [...] Review Audit Reviewed by Melvina Petersen MA (Dude Wrangler) on 09/09/24 at 0913 Medication Order Taking? Sig Documenting Provider Last Dose Status albuterol 0.63 mg/3 mL nebulizer solution [id number] Yes Inhale 3 mL. Historical Provider, Taking Active budesonide-formoteroL (Symbicort) 160-4.5 mcg/actuation inhaler [id number] Yes Inhale 2 puffs 2 times a day. Rinse mouth with water after use to reduce aftertaste and incidence of candidiasis. Do not swallow. Historical Provider, Taking Active docusate sodium 250 mg capsule [id number] No Take 1 capsule (250 mg) by mouth once daily. HistoricalProviderMD Taking Active methylPREDNISolone (Medrol Dospak) 4 mg tablets [id number] Take as directed on package. Evens Palacios APRN-RABIA Active pantoprazole (ProtoNix) 40 mg EC tablet [id number] Yes Take 1 tablet (40 mg) by mouth once daily. TOM Combs Taking Active sennosides-docusate sodium (Suzanne-Colace) 8.6-50 mg tablet [id number] No Take 1 tablet by mouth 2 times a day. Jayden Taylor MD Taking Active sertraline (Zoloft) 50 mg tablet [id number] Yes Take 1 tablet (50 mg) by [...] daily on Days 2 through 5. - tbbhpbsabkbqdul-hcfslnqdm-CB (Bromfed DM) 2-30-10 mg/5 mL syrup; Take [...] Evens Palacios CNP [facility] [phone] documented in this encounterWilson Health Work Phone: [phone] History of Present illness Narrative* TOM Combs [...] and possible interstitial cystitis documented in this encounterWilson Health Work Phone: [phone] History of Present illness Narrative* TOM Combs [...] ADHD vs anxiety -recommend testing from Dr Ash Cm vs Temi pending if she finds gene site testing documented in this [facility] Work Phone: [phone] History of Present illness Narrative* TOM Lazo [...] Review Audit Reviewed by Jesus Stover MA (Dude Wrangler) on 05/02/24 at 1144 Medication Order Taking? Sig Documenting Provider Last Dose Status acetaminophen (Tylenol) 325 mg tablet [id number] Yes Take 3 tablets (975 mg) by mouth every 6 hours if needed for mild pain (1 - 3) for up to 20 doses. Jayden Taylor MD Taking Active albuterol 0.63 mg/3 mL nebulizer solution [id number] Yes Inhale 3 mL. Historical ProviderMD Taking Active Discontinued 04/27/24 1231 budesonide-formoteroL (Symbicort) 160-4.5 mcg/actuation inhaler [id number] Yes Inhale 2 puffs 2 times a day. Rinse mouth with water after use to reduce aftertaste and incidence of candidiasis. Do not swallow. Historical ProviderMD Taking Active docusate sodium 250 mg capsule [id number] Yes Take 1 capsule (250 mg) by mouth once daily. Historical Provider, Taking Active estradiol (Estrace) 0.01 % (0.1 mg/gram) vaginal cream [id number] Yes Apply to vagina nightly for 1 week then every Wednesday/Wednesday/Wednesday. Jayden Taylor MD Taking Active ibuprofen 600 mg tablet [id number] Yes Take 1 tablet (600 mg) by mouth every 6 hours if needed for moderate pain (4 - 6) for up to 20 doses. Jayden Taylor MD Taking Active Patient not taking: Discontinued 04/28/24 1316 ondansetron (Zofran) 4 mg tablet [id number] Yes Take 1 tablet (4 mg) by mouth every 6 hours if needed for nausea for up to 20 doses. Jayden Taylor MD Taking Active oxyCODONE (Roxicodone) 5 mg immediate release tablet [id number] Yes Take 1 tablet (5 mg) by mouth every 6 hours if needed for severe pain (7 - 10) for up to 12 doses. Jayden Taylor MD Taking Active Discontinued 04/27/24 1229 Discontinued 04/27/24 1230 pantoprazole (ProtoNix) 40 mg EC tablet [id number] Yes Take 1 tablet (40 mg) by mouth once daily. Ayaka Doss, RATE SETTER-RABIA Taking Active sennosides-docusate sodium (Suzanne-Colace) 8.6-50 mg tablet [id number] Yes Take 1 tablet by mouth 2 [...] Evens Palacios CNP [facility] [phone] documented in this encounterWilson Health Work Phone: [phone] 154-104609-27-2024 History and physical note* Jayden Taylor MD [...] w/ surgery as scheduled. Jayden Taylor MD [facility] Work Phone: [phone]) [phone] History and physical note* Jayden Taylor MD [...] scheduled. Jayden Taylor MD documented in this [facility] Work Phone: [phone]) [phone] History of Present illness Narrative* Ayaka Doss, LORIE-CONTINUOUS DRYOUT OPERATOR - 04/27/2024 12:30 PM EDT Subjective Patient [...] ordered GERD -Takes protonix documented in this [facility] Work Phone: [phone]) 961-757005-22-2024 History of Present illness Narrative* Jayden Taylor MD - 12/22/2023 3:00 PM EDT Division of Minimally Invasive Gynecologic Surgery [facility] 12/18/23 Gynecology Consult HISTORY OF PRESENT [...] resection, any indicated procedure. PAT: No. Location: [place]. - PFPT referral, yoga for pelvic pain, [...] nothing Diagnostic workup: surgery documented in this [facility] Work Phone: [phone]) [phone] History of Present illness Narrative* Jameel Hernandez [...] (Tylenol w/ Codeine #3) 300-30 mg tablet [id number] Take 1 tablet by mouth every 6 hours if needed for moderate pain (4 - 6) or severe pain (7 - 10) for up to 10 doses. Jameel Hernandez MD Active albuterol 0.63 mg/3 mL nebulizer solution [id number] No Inhale 3 mL. Historical MD Sharon Past Week Active Breo Ellipta 200-25 mcg/dose inhaler [id number] No Inhale 1 puff by mouth once daily Sukh Pollock PA-C Past Month Active budesonide-formoteroL (Symbicort) 160-4.5 mcg/actuation inhaler [id number] No Inhale 2 puffs 2 timesa day. Rinse mouth with water after use to reduce aftertaste and incidence of candidiasis. Do not swallow. Historical Provider, 10/13/2023 Active docusate sodium (Colace) 100 mg capsule [id number] No Take 1 capsule (100 mg) by mouth 2 times a day. Historical Provider, 10/13/2023 Active LORazepam (Ativan) 1 mg tablet [id number] Take 1 tablet (1 mg) by mouth every 8 hours if needed for anxiety for up to 7 days. 1/2 or 1 tab q8 prn panic attack Sukh Pollock PA-C 05/08/23 2359 ondansetron (Zofran) 4 mg tablet [id number] No Take 1 tablet (4 mg) by mouth every 6 hours. Sukh Pollock PA-C Past Month Active ondansetron ODT (Zofran-ODT) 8 mg disintegrating tablet [id number] Take 1 tablet (8 mg) by mouth every 8 hours if needed for nausea or vomiting. Jameel Hernandez MD Active pantoprazole (ProtoNix) 40 mg EC tablet [id number] No Take 1 tablet (40 mg) by mouth once daily. Maritza Pollock PA-C 10/13/2023 Active BP 124/68 Ht 1.53 m [...] March for annual exam. documented in this [facility] Work Phone: [phone]) 443-171403-14-2024 Miscellaneous Notes* Op Note - Jameel Hernandez MD - 10/14/2023 9:31 AM EDT Diagnostic Laparoscopy Operative Note Date: 10/14/2023 OR Location: [facility] OR Name: Km Strange, : 1995, Age: 28 y.o., , Sex: female Diagnosis Pre-op Diagnosis * Chronic pelvic pain in female [R10.2, G89.29] Post-op Diagnosis * Chronic pelvic pain in female [R10.2, G89.29] Endometriosis Procedures Diagnostic Laparoscopy 04855 - [place] LAPS ABD PRTM&OMENTUM DX W/WO SPEC BR/WA SPX Surgeons * Jameel Hernandez - Primary Resident/Fellow/Other Diesel Powerplant Mechanic: Surgeon(s) and Role: Justin Sieving Procedure Summary Anesthesia: General ASA: II Anesthesia [...] 700 mL Specimen: No specimens collected Staff: Librarian: Johnny Michaels RN Scrub Person: Tae Herrmann; [...] drink after midnight Additional Instructions: Will need bottom hoop driver home, will receive call day before surgery with arrival time documented in this encounterWilson Health Work Phone: [phone]) 908-405103-14-2024 Note* Op Note - Jameel Hernandez MD - 10/14/2023 9:31 AM EDT Diagnostic Laparoscopy Operative Note Date: 10/14/2023 OR Location: [facility] OR Name: Km Strange, : 1995, Age: 28 y.o., , Sex: female Diagnosis Pre-op Diagnosis * Chronic pelvic pain in female [R10.2, G89.29] Post-op Diagnosis * Chronic pelvic pain in female [R10.2, G89.29] Endometriosis Procedures Diagnostic Laparoscopy 53229 - [place] LAPS ABD PRTM&OMENTUM DX W/WO SPEC BR/WA SPX Surgeons * Jameel Hernandez - Primary Resident/Fellow/Other Diesel Powerplant Mechanic: Surgeon(s) and Role: Justin Herrmann Procedure Summary [...] 700 mL Specimen: No specimens collected Staff: Librarian: Johnny Michaels RN Scrub Person: Tae Herrmann; [...] stable Additional Details: Attending Attestation: Jameel Hernandez [facility] Work Phone: [phone]) 633-659203-14-2024 Attending History and physical note* Jameel Hernandez [...] Medication Documentation Review Audit Reviewed by Jameel Heranndez MD (Physician) on 09/24/23 at 1451 Medication Order Taking? Sig Documenting Provider Last Dose Status albuterol 0.63 mg/3 mL nebulizer solution [id number] Inhale 3 mL. Historical ProviderMD Active Breo Ellipta 200-25 mcg/dose inhaler [id number] Inhale 1 puff by mouth once daily Sukh Pollock PA-C Active budesonide/formoterol fumarate (SYMBICORT INHL) [id number] Inhale. Historical ProviderMD Active DULoxetine (Cymbalta) [address] capsule [id number] Take one cap daily for one week then increase to 2 caps daily Sukh Pollock PA-C Active levalbuterol (Xopenex) 45 mcg/actuation inhaler [id number] Inhale 1 puff every 4 hours if needed. Historical Provider, Active LORazepam (Ativan) 1 mg tablet [id number] Take 1 tablet (1 mg) by mouth every 8 hours if needed for anxiety for up to 7 days. 1/2 or 1 tab q8 prn panic attack Sukh Pollock PA-C 05/08/23 2359 ondansetron (Zofran) 4 mg tablet [id number] Take 1 tablet (4 mg) by mouth every 6 hours. Sukh Pollock PA-C Active pantoprazole (ProtoNix) 40 mg EC tablet [id number] Take 1 tablet (40 mg) by mouth [...] Plan for diagnostic laparoscopy in several weeks. [facility] Work Phone: [phone]) 797-304203-14-2024 History and physical note* Jameel Hernandez MD [...] Status albuterol 0.63 mg/3 mL nebulizer solution [id number] Inhale 3 mL. Historical Provider, Active Breo Ellipta 200-25 mcg/dose inhaler [id number] Inhale 1 puff by mouth once daily Sukh Pollock PA-C Active budesonide/formoterol fumarate (SYMBICORT INHL) [id number] Inhale. Historical Provider, Active DULoxetine (Cymbalta) [address] capsule [id number] Take one cap daily for one week then increase to 2 caps daily Sukh Pollock PA-C Active levalbuterol (Xopenex) 45 mcg/actuation inhaler [id number] Inhale 1 puff every 4 hours if needed. Historical Provider, Active LORazepam (Ativan) 1 mg tablet [id number] Take 1 tablet (1 mg) by mouth every 8 hours if needed for anxiety for up to 7 days. 1/2 or 1 tab q8 prn panic attack Sukh Pamela ANGELA Pollock 05/08/23 2359 ondansetron (Zofran) 4 mg tablet [id number] Take 1 tablet (4 mg) by mouth every 6 hours. Sukh Pamela ANGELA Pollock Active pantoprazole (ProtoNix) 40 mg EC tablet [id number] Take 1 tablet (40 mg) by mouth once daily. Sukh Pamela ANGELA Pollock Active BP 118/64 Ht 1.524 [...] laparoscopy in several weeks. [facility] Work Phone: [phone]) 483-334703-11-2024 Note* Preprocedure Instructions - Nancy Cameron RN - 10/11/2023 12:35 PM EDT No outpatient medications have been marked as taking for the 10/14/23 encounter (Hospital Encounter). NPO Instructions: Nothing to eat or drink after midnight Additional Instructions: Will need bottom hoop driver home, will receive call day before surgery with arrival time [facility] Work Phone: [phone]) 470-135402-23-2024 History of Present illness Narrative* Jameel Hernandez [...] Status albuterol 0.63 mg/3 mL nebulizer solution [id number] Inhale 3 mL. Historical Provider, Active Breo Ellipta 200-25 mcg/dose inhaler [id number] Inhale 1 puff by mouth once daily Sukh Pollock PA-C Active budesonide/formoterol fumarate (SYMBICORT INHL) [id number] Inhale. Historical Provider, Active DULoxetine (Cymbalta) [address] capsule [id number] Take one cap daily for one week then increase to 2 caps daily Sukh Pollock PA-C Active levalbuterol (Xopenex) 45 mcg/actuation inhaler [id number] Inhale 1 puff every 4 hours if needed. Historical Provider, Active LORazepam (Ativan) 1 mg tablet [id number] Take 1 tablet (1 mg) by mouth every 8 hours if needed for anxiety for up to 7 days. 1/2 or 1 tab q8 prn panic attack Sukh Pollock PA-C 05/08/23 2359 ondansetron (Zofran) 4 mg tablet [id number] Take 1 tablet (4 mg) by mouth every 6 hours. Sukh Pollock PA-C Active pantoprazole (ProtoNix) 40 mg EC tablet [id number] Take 1 tablet (40 mg) by mouth [...] laparoscopy in several weeks. documented in this [facility] Work Phone: [phone]) 816-676609-27-2023 History of Present illness Narrative* Sukh Pollock [...] with it. The patient is currently taking zxrv-twe-ktlbiez formulations for insomnia which is somewhat helpful. [...] depression [F41.0] Panic attack documented in this [facility] Work Phone: [phone]) 701-248308-03-2023 History of Present illness Narrative* Sukh Pollock [...] of sacrum, initial encounter [facility] Work Phone: [phone] 770-198006-27-2023 History of Present illness Narrative* Sukh Pollock [...] Patient has seen gastroenterology here and in [place] with no change in course. No hematemesis [...] unspecified whether sciatica present documented in this [facility] Work Phone: [phone] 562-489206-26-2023 History of Present illness Narrative Km is a 27-year-old who comes in for routine DIRECTOR BIOSTATISTICS exam. Patient has chronic pelvic pain and issearing a pain specialist. Currently she is scheduled to see a pelvic floor therapist but the next step may be evaluation of for endometriosis. She recently became just a few weeks ago. Her and her are not preventing a but also or thinking they would like to wait until next year.[address] Work Phone: [phone] 656-284904-04-2023 History of Present illness Narrative Km is [...] to an IUD which was removed last summer.[facility] Work Phone: [phone] History of Present illness Narrative* Mike Del [...] swelling and pain. 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 [...] mg tablet predniSONE (Deltasone) 10 mg tablet ncxdkuabwsdhynr-SE-ifkkqpzbaut 60-15-400 mg tablet Final diagnoses: [F41.9, F32.A] Anxiety and depression [F41.0] Panic attacks [J02.9] Pharyngitis, unspecified etiology documented in this [facility] Work Phone: 1([phone]) 530-165804-03-2023 History of Present illness Alfredo Collazo is a 27-year-old who comes in for [...] to an IUD which was removed last summer.[facility] Work Phone: [phone]) 850-401203-25-2023 History of Present illness Alfredo Collazo is a 27-year-old who comes in for [...] to an IUD which was removed last summer.[address] Work Phone: 1([phone] 818-302209-01-2022 History of Present illness Narrative* Patient presents [...] and staying asleep. Patient is attempted several gghi-oig-lgehixm remedies without improvement. * Patient states there is a family history of this with fairly severe case of this with her father. Patient denies any traumatic precipitating event. [facility] Work Phone: [phone] 302-226507-13-2022 History of Present illness Narrative* Patient was [...] covers that she can get from the localstores to wrap her mattress and pillows in. [...] denies any dyspnea with daily activities. -Pulmonary Medicine-[place] [address] Work Phone: [phone] History of Present illness Narrative* 27 yo [...] appendectomy 2019 (pathology not available), wisdom teeth [facility] Work Phone: Chief complaint Narrative - Reported* KM HUNT is here for an initial evaluation. * Reason for Visit: Severe persistent Asthma. * Appointment requested by: Dr. Chávez; PCP: Ravin Pollock. [facility] [address] [facility] Work Phone: chiql complaint Narrative - Reported* KM HUNT is here for an initial evaluation. * Reason for Visit: Severe persistent Asthma. * Appointment requested by: Dr. Chávez; PCP: Ravin Pollock. -Pulmonary Medicine-[address] Work Phone: Evaluation note* Diagnosis Anxiety and depression- Primary Panic attacks Panic disorder without agoraphobia Pharyngitis, unspecified etiology documented in this encounter [facility] Work Phone: Evaluation note* Diagnosis Anxiety and depression- Primary Panic attack Panic disorder without agoraphobia Bilious vomiting with nausea Acute bilateral low back pain, unspecified whether sciatica present documented in this encounter [facility] Work Phone: Evaluation note* Diagnosis Anxiety and depression- Primary Injury of sacrum, initial encounter documented in this encounter [facility] Work Phone: Evaluation note* Diagnosis Anxiety and depression- Primary Panic attack Panic disorder without agoraphobia Nausea in adult documented in this encounter [facility] Work Phone: Evaluation note* Diagnosis Chronic pelvic pain in female- Primary Unspecified symptom associated with female genital organs Dyspareunia in female Chronic pelvic pain in female- Primary Unspecified symptom associated with female genital organs documented in this encounter [facility] Work Phone: Evaluation note* Diagnosis Chronic pelvic pain in female- Primary Unspecified symptom associated with female genital organs Chronic pelvic pain in female Unspecified symptom associated with female genital organs PONV (postoperative nausea and vomiting) Nausea with vomiting PONV (postoperative nausea and vomiting) Nausea with vomiting documented in this encounter [facility] Work Phone: Evaluation note* Diagnosis Postoperative visit- Primary Endometriosis determined by laparoscopy documented in this encounter [facility] Work Phone: Evaluation note* Diagnosis Endometriosis determined by laparoscopy- Primary Dyspareunia in female documented in this encounter [facility] Work Phone: Evaluation note* Diagnosis Allergic contact der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- Primary Contact dermatitis and other eczema due to other chemical products documented in this encounter [facility] Work Phone: Evaluation note* Diagnosis Panic attacks- Primary Panic disorder without agoraphobia Anxiety and depression documented in this encounter [facility] Work Phone: Evaluation note* Diagnosis Endometriosis determined by laparoscopy- Primary Health maintenance examination- Primary Unspecified general medical examination Gastroesophageal reflux disease without esophagitis Esophageal reflux Endometriosis determined by laparoscopy documented in this encounter [facility] Work Phone: Evaluation note* Diagnosis Endometriosis determined by laparoscopy- Primary Endometriosis determined by laparoscopy Post-op pain Other acute postoperative pain documented in this encounter [facility] Work Phone: [phone] note* Diagnosis UTI symptoms documented in this encounter [facility] Work Phone: Evaluation note* Diagnosis UTI symptoms documented in this encounter [facility] Work Phone: Evaluation note* Diagnosis Acute non-recurrent maxillary sinusitis- Primary Acute upper respiratory infection Acute upper respiratory infections of unspecified site documented in this encounter [facility] Work Phone: Evaluation note* Diagnosis Bronchitis- Primary Bronchitis, not specified as acute or chronic , unspecified gestational age ([facility]) documented in this encounter [facility] Work Phone: Evaluation note* Diagnosis Bronchitis Bronchitis, not specified as acute or chronic documented in this encounter [facility] Work Phone: [phone] noteNo assessment information available [facility] Work Phone: Evaluation note* Diagnosis Anaphylaxis, initial encounter- Primary [facility] Diagnosis Pelvic pain- Primary Allergic reaction, subsequent encounter- Primary Pelvic pain Pelvic pain documented in this encounter [facility] Work Phone: Evaluation note* Diagnosis Chronic urticaria- Primary Other specified urticaria Angioedema, initial encounter Swelling Edema documented [facility] Diagnosis OAB (overactive bladder)- Primary Urinary symptom or sign Interstitial cystitis Chronic interstitial cystitis Pelvic pain in female Unspecified symptom associated with female genital organs Pelvic floor dysfunction documented in this encounter [facility] Work Phone: History of Present illness NarrativePresents for evaluation of URI. Symptoms including cough, congestion, have been present for severaldays and refractory to OTC meds. No fever, chills, nausea, vomiting, abdominal pain, CP, or SOB. Noexacerbating factors. Patient does have asthma.[facility] Work Phone: History of Present illness NarrativePresents for evaluation of URI. Symptoms including cough, congestion, have been present for severaldays and refractory to OTC meds. No fever, chills, nausea, vomiting, abdominal pain, CP, or SOB. Noexacerbating factors. Patient does have asthma.[facility] Work Phone: History of Present illness NarrativePresents for evaluation fever, sore throat, nausea, body aches, and RAMÍREZ. Symptoms presented today and have been refractory to otc meds. No abdominal pain, diaphoresis, or other constitutional S/S. No other attempt at conservative management. No other complaints.[facility] Work Phone: History of Present [...] drainage. 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 [facility] Work Phone: History of Present illness NarrativePatient is a 26-year-old who is here for for an annual exam and concerns about left lower quadrant pain going on for several years. She reports she had a CT scan ordered by her PCP that showed a leftovarian cyst. Patient uses condoms for contraception. Patient denies any discharge or odor. Patientdenies any problems with her [facility] [address] Work Phone: History of Present illness NarrativePatient is a 26-year-old who is here for for an annual exam and concerns about left lower quadrant pain going on for several years. She reports she had a CT scan ordered by her PCP that showed a leftovarian cyst. Patient uses condoms for contraception. Patient denies any discharge or odor. Patientdenies any problems with her [facility] Work Phone: History of Present illness NarrativePatient is a 26-year-old who is here for for an annual exam and concerns about left lower quadrant pain going on for several years. She reports she had a CT scan ordered by her PCP that showed a leftovarian cyst. Patient uses condoms for contraception. Patient denies any discharge or odor. Patientdenies any problems with her [facility] Work Phone: History of Present illness Narrative* [...] does have a history of bone allergy shothen she was in high school. Her current [...] any problems with sleep at nighttime. -Pulmonary Medicine-[address] Work Phone: History of Present illness Narrative* [...] any problems with sleep at nighttime. -Pulmonary Medicine-[place] [address] DO Work Phone: History of Present illness [...] she can get from the [facility] to wrap her mattress and pillows [...] She denies any dyspnea with daily activities. [facility] Work Phone: History of Present illness [...] to complete work and deal with adverse situations.[facility] Work Phone: History of Present illness NarrativePatient [...] lack of interest, social anxiety and general sadness.[facility] Work Phone: History of Present illness NarrativeKm [...] to an IUD which was removed last summer.[facility] Work Phone: Hospital Discharge instructions Additional [...] your OB for further outpatient evaluation and management.[facility] Work Phone: Reason for referral (narrative)* Consultation (Routine) - Authorized Specialty Diagnoses / Procedures Referred By Contac t Referred To Contact Primary Care Procedures Follow Up In Primary Care - Established Sukh Pollock PA-C [address] [place] [address] [place] [address] Referral ID Status Reason Start Date Expiration Date V isits Requested Visits Authorized [id number] Authorized 03/04/2023 08/31/2023 1 1 [facility] Work Phone: Remruo for referral (narrative)* Consultation (Routine) - Authorized Specialty Diagnoses / Procedures Referred By Contac t Referred To Contact Primary Care Procedures Follow Up In Primary Care - Established Sukh Pollock PA-C [address] [place] [address] [place] [address] Referral ID Status Reason Start Date Expiration Date V isits Requested Visits Authorized [id number] Authorized 04/28/2023 10/25/2023 1 1 [facility] Work Phone: Reqnqc for referral (narrative)* Consultation (Routine) - Pending Review Specialty Diagnoses / Procedures Referred By Contac t Referred To Contact Physical Therapy Diagnoses Endometriosis determined by laparoscopy Jayden Taylor MD [facility] Nisreen Burgos [facility], [place] [address] Referral ID Status Reason Start Date Expiration Date Visits Requested Visits Authorized [id number] Pending Review Specialty Services Required 12/22/2023 12/21/2024 1 1 [facility] Work Phone: Reason for referral (narrative)No reason for referral information availableWFirelands [facility] Work Phone: Reason for visit Narrative* Imaging (Routine) - Authorized Specialty Diagnoses / Procedures Referred By Contac t Referred To Contact Radiology Diagnoses UTI symptoms Procedures US renal complete Ayaka Doss RATE SETTER-CONTINUOUS DRYOUT OPERATOR [address] [facility] [place] [address] Phone: tel: fax: Referral ID Status Reason Start Date Expiration Date Visits Requested Visits Authorized [id number] Authorized Perform Procedure 08/30/2024 08/30/2025 1 1 [facility] Work Phone: Reason for visit Narrative* Imaging (Routine) - Authorized Specialty Diagnoses / Procedures Referred By Contac t Referred To Contact Radiology Diagnoses Bronchitis Procedures XR chest 2 views Ayaka Doss RATE SETTER-CONTINUOUS DRYOUT OPERATOR [address] [facility] [place] [address] Phone: tel: fax: Referral ID Status Reason Start Date Expiration Date Visits Requested Visits Authorized [id number] Authorized Perform Procedure 09/20/2024 09/20/2025 1 1 [facility] Work Phone: Summary Purpose Family History No [...] Do you have a Healthcare Power of Technology Coach? No November 05, 2024 3:42pm Chief Complaint * Patient here today to be seen for sinus drainage, cough, ARMÍREZ and left ear discomfort x 2 days. [...] 01/14/2022 WNL; LMP 12/08/2022; G0 * CGLANTON HUMAN SERVICES PROGRAM SPECIALIST Patient here today for annual exam. She [...] Referral Specialty Diagnoses / Procedures Referred By Robyn t Referred To Contact Radiology Diagnoses Bilious vomiting with nausea Procedures US gallbladder Sukh Pollock PA-C [address] [facility] [place] [address] Referral ID Status Reason Start Date Expiration Date Visits Requested Visits Authorized [id number] Authorized Perform Procedure 01/26/2023 07/25/2023 1 1 Specialty Diagnoses / Procedures Referred By Robyn t Referred To Contact Radiology Diagnoses Acute bilateral low back pain, unspecified whether sciatica present Procedures XR lumbar spine complete 4+ views Sukh Pollock PA-C [address] [facility] [place] [address] Referral ID Status Reason Start Date Expiration Date Visits Requested Visits Authorized [id number] Authorized Perform Procedure 01/26/2023 07/25/2023 1 1 Specialty Diagnoses / Procedures Referred By Robyn t Referred To Contact Primary Care Procedures Follow Up In Primary Care Sukh Pollock PA-C [address] [facility] [place] [address] Referral ID Status Reason Start Date Expiration Date V isits Requested Visits Authorized [id number] Authorized 01/26/2023 07/25/2023 1 1 Specialty Diagnoses / Procedures Referred By Contac t Referred To Contact Psychology Diagnoses Anxiety and depression Panic attack Procedures [place] OFFICE/OUTPATIENT [facility] MDM 60-74 MINUTES Sukh Pollock PA-C [address] [facility] [place] [address] Referral ID Status Reason Start Date Expiration Date Visits Requested Visits Authorized [id number] Authorized Specialty Services Required 01/26/2023 07/25/2023 1 1 Specialty Diagnoses / Procedures Referred By Contac t Referred To Contact Diagnoses Allergic contact der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 Evens Palacios, RATE SETTER-CONTINUOUS DRYOUT OPERATOR [address] [place] [address] Referral ID Status Reason Start Date Expiration Date V isits Requested Visits Authorized [id number] Pending Review 05/02/2024 05/02/2025 1 1 Chief [...] am PELVIC FLOOR- DYSPAREUNIA. RX SCANNED. Stephan ivanust 2024 8:00am 17wk ob March 19, 2025 [...] 2025 8:19am Pelvic floor dysfunction in female [facility] 2024 8:19am April 18, 2025 8:19am Supervision of high-risk Aubrey [facility] 2024 8:19am Chief Complaint Admit Date 13wk OB February 22, 2025 9:19 am 17wk ob March 19, 2025 3: 03pm 21 WK OB April 18, 2025 8:19am PELVIC FLOOR- DYSPAREUNIA. RX SCANNED. O ctober 2024 4:00pm 24w 6d OB May 17, 2025 3 :48pm ORDER SCANNED May 17, 2025 4 :44pm Reason for Visit Admit Date Acid reflux February 22, 2025 9:19 am [...] 2025 8:19am Pelvic floor dysfunction in female Manie mb 2024 8:19am April 18, 2025 8:19am Supervision of high-risk Manie [facility] 2024 8:19am Acid reflux May 17, 2025 3 :48pm Anxiety May 17, 2025 3 :48pm Depression May 17, 2025 3 :48pm Interstitial cystitis May 17, 2025 3:48pm Pelvic floor dysfunction in female Octob er 2024 3:48pm May 17, 2025 3 :48pm Supervision of high-risk Octob er 2024 3:48pm Additional Source Comments INFORMATION SOURCE (unrecogn ized section and content) DATE CREATED AUTHOR 04/15/2019 [facility] DATE CREATED AUTHOR AUTHOR'S ORGANIZ ATION 02/04/2023 [facility] DATE CREATED AUTHOR AUTHOR'S ORGANIZ ATION 02/16/2023 [facility] [place] DATE CREATED AUTHOR AUTHOR'S ORGANIZ ATION 02/16/2023 [employer] DATE CREATED AUTHOR AUTHOR'S ORGANIZ ATION 11/28/2024 [facility] DATE CREATED AUTHOR AUTHOR'S ORGANIZ ATION 12/28/2024 [facility] DATE CREATED AUTHOR AUTHOR'S ORGANIZ ATION 12/31/2024 [facility] DATE CREATED AUTHOR AUTHOR'S ORGANIZ ATION 12/31/2024 [facility] DATE CREATED AUTHOR AUTHOR'S ORGANIZ ATION 01/09/[address] [facility] DATE CREATED AUTHOR AUTHOR'S ORGANIZ ATION 04/09/2025 [facility] DATE CREATED AUTHOR AUTHOR'S ORGANIZ ATION 04/20/2025 [facility] DATE CREATED AUTHOR AUTHOR'S ORGANIZ ATION 2025 [facility] DATE CREATED AUTHOR AUTHOR'S ORGANIZ ATION 06/10/2025 [facility] <item><item> Privacy Markings (unrecogniz ed section and [...] Referred By Robyn t Referred To Contact Primary Care Procedures Follow Up In Primary Care Sukh Pollock PA-C [address] [place] [address] [place] [address] Referral ID Status Reason Start Date Expiration Date V isits Requested Visits Authorized [id number] Authorized 01/26/2023 07/25/2023 1 1 Reason Comments [...] 09/04/23. Specialty Diagnoses / Procedures Referred By Contac t Referred To Contact Diagnoses Chronic pelvic pain in female Chronic pelvic pain in female [R10.2, G89.29] Procedures VT LAPS ABD PRTM&OMENTUM DX W/WO SPEC BR/WA SPX Diagnostic Laparoscopy Jameel Hernandez MD [address] [facility] [address] [place] [address] [place] [address] [place] [phone] Referral ID Status Reason Start Date Expiration Date Visits Re quested Visits Authorized [id number] 1 1 Reason Comments Post-op Visit Patient is here for her post op visit and has some questions regarding her bladder issues. Reason Comments Follow-up Endometriosis follow up Reason Comments Rash Rash on abdomen/hips . OTC antihistamines not improving sx Specialty Diagnoses / Procedures Referred By Luciaac t Referred To Contact Diagnoses Allergic contact der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 Evens Palacios, RATE SETTER-CONTINUOUS DRYOUT OPERATOR [address] [place] [address] Referral ID Status Reason Start Date Expiration Date V isits Requested Visits Authorized [id number] Pending Review 05/02/2024 05/02/2025 1 1 Specialty Diagnoses / Procedures Referred By Luciaac t Referred To Contact Diagnoses Endometriosis determined by laparoscopy Endometriosis determined by laparoscopy [N80.9] Procedures VT LAPS ABD PRTM&OMENTUM DX W/WO SPEC BR/WA SPX ROBOT ASSIST ENDOMETRIOSIS EXCISION/ CHROMOPERTUBATION/ CYSTOSCOPY/ POSSIBLE BLADDER RESECTION/ ANY INDICATED PROCEDURE Jayden Taylor MD [facility] Nisreen Burgos [facility], [place] [address] [place] [address] [facility] [place] [address] [place] [phone] Referral ID Status Reason Start Date Expiration Date Visits Re quested Visits Authorized [id number] 1 1 Reason Comments UTI sx Off and on for a mon th Reason Comments URI Sinus drainage, coug dyan, ear pain x 3 days Reason Comments Sick Visit Reason Comments Allergic Reaction Reason Comments New Patient [facility] Specialty Diagnoses / Procedures Referred By Contac t Referred To Contact Allergy & Immunology Diagnoses Anaphylaxis, initial encounter Starr Torrez MD [address] [place] [address] Phone: tel: fax: Referral ID Status Reason Start Date Expiration Date V isits Requested Visits Authorized [id number] New Request 11/24/2024 12/19/2025 1 1 Reason [...] Care Teams (unrecognized sec tion and content) Drafter Tool Design Relationship Specialty Start Date End Date Sukh Pollock PA-C [address] [facility] Physician [place] [phone] PCP - General 06/24/21 Sukh Pollock PA-C [address] [facility] [place] [address] PCP - [employer] ACO PCP 08/02/21 Sukh Pollock PA-C [address] [facility] [place] [address] PCP - MMO ACO PCP 08/02/21 Drafter Tool Design Relationship Specialty Start Date End Date Sukh Pollock PA-C [address] [facility] [place] [address] PCP - General 06/24/21 Sukh Pollock PA-C [address] [facility] [place] [address] PCP - [employer] ACO PCP 08/02/21 Sukh Pollock PA-C [address] [facility] Physician [facility] [place] [address] PCP - MMO ACO PCP 08/02/21 Sukh Pollock PA-C [address] [facility] [place] [address] [facility] PCP 10/31/22 Drafter Tool Design Relationship Specialty Start Date End Date Sukh Pollock PA-C [address] [facility] [place] [address] PCP - General 06/24/21 Sukh Pollock PA-C [address] [facility] [place] [address] PCP - [employer] ACO PCP 08/02/21 Sukh Pollock PA-C [address] [facility] [place] [address] PCP - MMO ACO PCP 08/02/21 Skuh Pollock PA-C [address] [facility] [place] [address] [facility] Medicaid PCP 10/31/22 Drafter Tool Design Relationship Specialty Start Date End Date Sukh Pollock PA-C [address] [facility] [place] [address] PCP - General 06/24/21 Sukh Pollock PA-C [address] [facility] [place] [address] PCP - Sunnie ACO PCP 08/02/21 Drafter Tool Design Relationship Specialty Start Date End Date Sukh Pollock PA-C [address] [facility] [place] [address] PCP - General 06/24/21 Sukh Pollock PA-C 1996 [facility], [address] [address] PCP - MMO ACO PCP 05/02/23 Drafter Tool Design Relationship Specialty Start Date End Date Sukh Pollock PA-C [address] [facility] [place] [address] PCP - General 06/24/21 Sukh Pollock PA-C 1996 [facility], [address] [address] PCP - MMO ACO PCP 05/02/23 Drafter Tool Design Relationship Specialty Start Date End Date Sukh Pollock PA-C [address] [facility] [place] [address] PCP - General 06/24/21 Sukh Pollock PA-C 1996 [facility], [address] [address] PCP - MMO ACO PCP 05/02/23 Drafter Tool Design Relationship Specialty Start Date End Date Sukh Pollock PA-C [address] [facility] [place] [address] PCP - General 06/24/21 Sukh Pollock PA-C 1996 [facility], [address] [address] PCP - MMO ACO PCP 05/02/23 Drafter Tool Design Relationship Specialty Start Date End Date Sukh Pollock PA-C 1996 [facility], [address] [address] PCP - MMO ACO PCP 05/02/23 Ayaka Doss RATE SETTER-CONTINUOUS DRYOUT OPERATOR [address] [facility] [place] [address] PCP - General Family Medicine 04/27/24 Drafter [employer] Design Relationship Specialty Start Date End Date Ayaka Doss APRN-CONTINUOUS DRYOUT OPERATOR [address] [facility] [place] [address] PCP - General Family Medicine 04/27/24 Drafter Tool Design Relationship Specialty Start Date End Date Sukh Pollock PA-C 1996 [facility], [address] [address] PCP - MMO ACO PCP 05/02/23 Ayaka Doss RATE SETTER-CONTINUOUS DRYOUT OPERATOR [address] [facility] [place] [address] PCP - General Family Medicine 04/27/24 Drafter Tool Design Relationship Specialty Start Date End Date Sukh Pollock PA-C [address] [place] [address], [address] [address] PCP - MMO ACO PCP 05/02/23 Ayaka Doss RATE SETTER-CONTINUOUS DRYOUT OPERATOR [address] [facility] [place] [address] PCP - General Family Medicine 04/27/24 Drafter Tool Design Relationship Specialty Start Date End Date Ayaka Doss RATE SETTER-CONTINUOUS DRYOUT OPERATOR [address] [facility] [place] [address] PCP - General Family Medicine 04/27/24 Ayaka Doss RATE SETTER-CONTINUOUS DRYOUT OPERATOR [address] [facility] [place] [address] PCP - MMO ACO PCP 06/02/24 Drafter Tool Design Relationship Specialty Start Date End Date Ayaka Doss RATE SETTER-CONTINUOUS DRYOUT OPERATOR [address] [facility] [place] [address] PCP - General Family Medicine 04/27/24 Ayaka Doss APRN-CONTINUOUS DRYOUT OPERATOR [address] [facility] [place] [address] PCP - MMO ACO PCP 06/02/24 Drafter Tool Design Relationship Specialty Start Date End Date Ayaka Doss RATE SETTER-CONTINUOUS DRYOUT OPERATOR [address] [facility] [place] [address] PCP - General Family Medicine 04/27/24 Ayaka Doss RATE SETTER-CONTINUOUS DRYOUT OPERATOR [address] [facility] [place] [address] PCP - MMO ACO PCP 06/02/24 Drafter Tool Design Relationship Specialty Start Date End Date Ayaka Doss RATE SETTER-CONTINUOUS DRYOUT OPERATOR [address] [facility] [place] [address] PCP - General Family Medicine 04/27/24 Ayaka Doss, RATE SETTER-CONTINUOUS DRYOUT OPERATOR [address] [facility] [place] [address] PCP - MMO ACO PCP 06/02/24 Drafter Tool Design Relationship Specialty Start Date End Date Ayaka Doss, RATE SETTER-CONTINUOUS DRYOUT OPERATOR [address] [facility] [place] [address] PCP - General Family Medicine 04/27/24 Ayaka Doss, RATE SETTER-CONTINUOUS DRYOUT OPERATOR [address] [facility] [place] [address] PCP - MMO ACO PCP 06/02/24 Team Status: Active Member Role Status Dates BING PlascenciaC Primary Care Provider Active Team Status: Inactive Member Role Status Dates Dr. Daniel Schneider , DO Emergency Provider Active Start: November 05, 2024 End: November 05, 2024 BING PlascenciaC Primary Care Provider Active Start: November 05, 2024 End: November 05, 2024 Drafter Tool Design Relationship Specialty Start Date End Date Ayaka Doss FNP [address] [facility] [place] [address] PCP - General Family Medicine 11/23/24 Drafter Tool Design Relationship Specialty Start Date End Date Ayaka Doss, RATE SETTER-CONTINUOUS DRYOUT OPERATOR [address] [facility] [place] [address] PCP - General Family Medicine 04/27/24 Ayaka Doss RATE SETTER-CONTINUOUS DRYOUT OPERATOR [address] [facility], [address] [place] [address] PCP - MMO ACO PCP 06/02/24 Drafter Tool Design Relationship Specialty Start Date End Date Ayaka Doss FNP [address] [facility] [place] [address] PCP - General Family Medicine 11/23/24 Drafter Tool Design Relationship Specialty Start Date End Date Ayaka Doss RATE SETTER-CONTINUOUS DRYOUT OPERATOR PCP - General Family Medicine 04/27/24 Ayaka Doss RATE SETTER-CONTINUOUS DRYOUT OPERATOR [address] [facility] [address] [place] [address] PCP - MMO ACO PCP 06/02/24 Team [...] Active Member Role/Relationship Status Dates Ayaka Doss SPOOL WORKER-C Primary Care Provider Active Team Status: Inactive Member Role/Relationship Status Dates Dr. Daniel Schneider DO Attending Provider Active Start: November 05, 2024 End: November 05, 2024 Dr. Daniel Schneider DO Emergency Provider Active Start: November 05, 2024 End: November 05, 2024 Ayaka Doss SPOOL WORKER-C Primary Care Provider Active Start: November 05, 2024 End: November 05, 2024 Team Status: Inactive Member Role/Relationship Status Dates Ayaka Doss SPOOL WORKER-C Primary Care Provider Active Start: January 12, 2025 End: January 12, 2025 Ayaka Doss SPOOL WORKER-C Referring Provider Active St art: January 12, 2025 End: January 12, 2025 Dr. Kirsten Aragon DO Attending Provider Activ e Start: January 12, 2025 End: January 12, 2025 Team Status: Inactive Member Role/Relationship Status Dates Ayaka Doss SPOOL WORKER-C Primary Care Provider Active Start: January 26, 2025 End: January 26, 2025 Ayaka Doss SPOOL WORKER-C Referring Provider Active St art: January 26, 2025 End: January 26, 2025 Apple Browne CNM Attending Provider Active Start: January 26, 2025 End: January 26, 2025 Team Status: Active Member Role/Relationship Status Dates Ayaka Doss SPOOL WORKER-C Primary Care Provider Active Start: January 26, 2025 Apple Browne CNM Attending Provider Active Start: January 26, 2025 Apple Browne CNM Referring Provider Active Start: January 26, 2025 Team Status: Inactive Member Role/Relationship Status Dates Ayaka Doss SPOOL WORKER-C Primary Care Provider Active Start: January 26, 2025 End: January 26, 2025 Apple Browne CNM Attending Provider Active Start: January 26, 2025 End: January 26, 2025 Apple Browne CNM Referring Provider Active Start: January 26, 2025 End: January 26, 2025 Team Status: Active Member Role/Relationship Status Dates Ayaka Doss SPOOL WORKER-C Primary Care Provider Active Start: February 20, 2025 Apple Browne CNM Attending Provider Active Start: February 20, 2025 Apple Browne CNM Referring Provider Active Start: February 20, 2025 Team Status: Inactive Member Role/Relationship Status Dates Ayaka Doss SPOOL WORKER-C Primary Care Provider Active Start: February 22, 2025 End: February 22, 2025 Ayaka Doss SPOOL WORKER-C Referring Provider Active St art: February 22, 2025 End: February 22, 2025 Dr. Marcie Santana MD Attending Provider Active Start: February 22, 2025 End: February 22, 2025 Team Status: Inactive Member Role/Relationship Status Dates Ayaka Doss SPOOL WORKER-C Primary Care Provider Active Start: January 12, 2025 End: January 12, 2025 Ayaka Doss NP-C Referring Provider Active St art: January 12, 2025 End: January 12, 2025 Dr. Kirsten Aragon DO Attending Provider Activ e Start: January 12, 2025 End: January 12, 2025 Team Status: Inactive Member Role/Relationship Status Dates Ayaka Doss SPOOL WORKER-C Primary Care Provider Active Start: January 26, 2025 End: January 26, 2025 Ayaka Doss NP-C Referring Provider Active St art: January 26, [...] Inactive Member Role/Relationship Status Dates Ayaka Doss SPOOL WORKER-C Primary Care Provider Active Start: February 22, 2025 End: February 22, 2025 Ayaka Doss NP-C Referring Provider Active St art: February 22, 2025 End: February 22, 2025 Dr. Marcie Santana MD Attending Provider Active Start: February 22, 2025 End: February 22, 2025 Team Status: Active Member Role/Relationship Status Dates Ayaka Selam , SPOOL WORKER-C Primary Care Provider Active Start: March 13, 2025 Apple Browne CNM Attending Provider Active Start: March 13, 2025 Apple Browne CNM Referring Provider Active Start: March 13, 2025 Team Status: Inactive Member Role/Relationship Status Dates Ayaka Doss NP-C Primary Care Provider Active Start: March 19, 2025 End: March 19, 2025 Ayaka Doss NP-C Referring Provider Active St art: March 19, [...] Role/Relationship Status Dates Ayaka Doss NP-C Primary care physician Active Team Status: Inactive [...] Role/Relationship Status Dates Ayaka Doss NP-C Primary care physician Active Start: January 26, 2025 End: January 26, 2025 Ayaka Doss NP-Radha Referring Provider Active St art: January 26, 2025 End: January 26, 2025 Apple Browne CNM Attending physician Active Start: January 26, 2025 End: January 26, 2025 Team Status: Inactive Member Role/Relationship Status Dates Ayaka Doss NP-C Primary care physician Active Start: January 26, [...] April 18, 2025 End: April 18, 2025 Nelli Juárez NP SPOOL WORKER-C Attending physician Active Start: April 18, 2025 End: April 18, 2025 Team Status: Inactive Member Role/Relationship Status [...] March 19, 2025 End: March 19, 2025 BING PlascenciaC Referring Provider Active St art: March 19, [...] Member Role/Relationship Status Dates BING PlascenciaC Primary care physician Active Start: April 18, 2025 End: April 18, 2025 CARLA Plascencia Referring Provider Active St art: April 18, 2025 End: April 18, 2025 Nelli Juárez NP, NP-C Attending physician Active Start: April 18, 2025 End: April 18, 2025 Team Status: Active Member Role/Relationship Status Dates CARLA Plascencia Primary care physician Active Start: May 16, 2025 Apple Browne CNM Attending physician Active Start: May 16, 2025 Apple Browne CNM Referring Provider Active Start: May 16, 2025 Team Status: Inactive Member Role/Relationship Status Dates BING PlasecnciaC Primary care physician Active Start: May 17, 2025 End: May 17, 2025 CARLA Plascencia Referring Provider Active St art: May 17, 2025 End: May 17, 2025 Dr. Kirsten Aragon DO Attending physician Acti ve Start: May 17, 2025 End: May 17, 2025 Team Status: Active Member Role/Relationship Status Dates BING PlascenciaC Primary care physician Active Start: May 17, 2025 Dr. Kirsten Aragon DO Attending physician Siomara barriga Start: May 17, 2025 Dr. Kirsten Aragon DO Referring Provider Reginald allen Start: May 17, 2025 Scheduled Active and Recently Administ ered [...] 10/14/23 at 0800, For 1 dose, Preprocedure 0900 (Given - Provid er: Ratna Mendoza RN) ondansetron (Zofran) injection 4 mg (COMPLETED) 4 mg, intravenous, Once, On Amanda 10/14/23 at 0800, For 1 dose, Preprocedure, When administering via IV Push, administer over 3-5 minutes. 0758 (Given - Provid er: Ratna Mendoza RN) scopolamine (Transderm-Scop) patch 1 patch (CANCELED) 1 patch, transdermal, Administer over 72 Hours, Every 72 hours, First dose on Amanda 10/14/23 at 0930, Preprocedure, Apply to hairless area [...] pain scores based on patient preference? Yes 3877 (Given - Provid er: Ratna Mendzoa RN) oxygen (O2) therapy inhalation, Continuous PRN [...] Infiltration, ONCE NEEDED, 1 dose, Starting on Amanda 11/23/24 at 0215, Until Amanda 11/23/24 at 0902, Other, peripheral IV insertion Goals [...] BE BASED ON THE PRIMARY CLINICAL RECORDS. [employer] provides no warranty or guarantee of the accuracy or completeness of information in this document.
[2025-07-02 21:17] VITALS: BP 118/66; PULSE 96; RESP 14; TEMP 36.3
[2025-07-02 21:26] LABS: Mucous, Urine 0 SEEN /hpf (<or=2+); Red Blood Cells-Urine 0 SEEN /hpf (0-5); Squamous Epithelial Cells - UA 0 SEEN /hpf (5-10)
[2025-07-02 21:29] VITALS: BMI 30.7
[2025-07-02 21:30] LABS: Color, Urine Yellow (Yellow); Glucose, Dipstick Normal (Normal); Ketone-Dipstick Negative (Negative); Leukocyte Esterase-Dipstick 25 /ul (Negative); Nitrite-Dipstick Negative (Negative); Occult Blood-Urine Negative /ul (Negative); Protein-Dipstick 15 mg/dl (Negative); Specific Gravity, Urine 1.015 (1.002-1.030); Urine Bilirubin Dipstick Negative (Negative)
[2025-07-02] MEDS: Lactated Ringers 1,000 ML 999 ML IV (21:52)
[2025-07-02 21:56] LABS: Hematocrit 28.0 % (37-47); Hemoglobin 9.5 g/dL (12.0-15.0); Immature Granulocytes Count 0.090 X10^3/uL (0.0-0.0); Mean Corp Hgb Conc 33.9 g/dL (32-36); Mean Corpuscular Volume 82.4 fL (81-99); Mean Platelet Vol. 10.6 fl (6.2-12.0); NRBC Flagged by Analyzer 0 % (0-5); Platelet Count 249 K/mm3 (150-450); RBC Distribution Width CV 11.3 % (11.6-14.6); RBC Distribution Width SD 33.4 fl (35.1-43.9); Red Blood Count 3.40 M/mm3 (4.2-5.4); White Blood Count 7.5 K/mm3 (4.4-11.0)
[2025-07-02 22:27] LABS: AST(SGOT) 20 U/L (<=31); Alanine Aminotransfer ALT/SGPT 25 U/L (<=34); Albumin, Serum 3.2 g/dL (3.5-5.0); Alkaline Phosphatase 131 U/L (35-104); Anion Gap 12 (5-15); BUN 8 mg/dL (4-19); BUN/Creat Ratio 13.8 RATIO (10-20); Calcium,Total 8.9 mg/dL (7.6-11.0); Carbon Dioxide 20.8 mmol/L (21.0-32.0); Chloride 104 mmol/L (98-108); Estimated Creatinine Clearance 127.17 ml/min (50-250); Globulin 2.9 g/dL (2.2-4.2); Glucose 112 mg/dL (70-99); Lipase 20 U/L (13-75); Potassium 3.7 mmol/L (3.3-5.1)
--- NOTE | 2025-07-10 15:29 | OB.TRI.PN ---
Progress Notes Date of Service: 07/02/25 Progress Note: Patient presents for triage evaluation secondary to 31 weeks abdominal cramping FHT: 135 moderate variability reactive no decelerations category I tracing [place]: No regular contractions Assessment and plan: Abdominal cramping UTI in 31 weeks UA and culture sent reactive NST, reassuring maternal and status patient discharged to home to follow-up as scheduled. See problem list details for additional plan information. Laboratory Studies: Laboratory Tests 07/02/25 07/02/25 Range/Units 21:35 21:15 WBC 7.5 (4.4-11.0) K/mm3 RBC 3.40 L (4.2-5.4) M/mm3 Hgb 9.5 L (12.0-15.0) g/dL Hct 28.0 L (37-47) % MCV 82.4 (81-99) fL MCH 27.9 (27.0-32.0) pg MCHC 33.9 (32-36) g/dL RDW Std Deviation 33.4 L (35.1-43.9) fl RDW Coeff of Zander 11.3 L (11.6-14.6) % Plt Count 249 (150-450) K/mm3 MPV 10.6 (6.2-12.0) fl Immature Gran % (Auto) 1.200 H (0.0-0.9) % Neut % (Auto) 59.9 (47-70) % Lymph % (Auto) 26.5 (19-41) % Garvin % (Auto) 9.5 (0-10) % Eos % (Auto) 2.4 (0-5) % Baso % (Auto) 0.5 (0-1) % Absolute Neuts (auto) 4.5 (2.0-7.7) X10^3/uL Absolute Lymphs (auto) 1.99 (0.83-4.51) X10^3/uL Nucleated RBC % 0 (0-5) % Sodium 137 (133-145) mmol/L Potassium 3.7 (3.3-5.1) mmol/L Chloride 104 (98-108) mmol/L Carbon Dioxide 20.8 L (21.0-32.0) mmol/L Anion Gap 12 (5-15) BUN 8 (4-19) mg/dL Creatinine 0.58 L (0.70-1.20) mg/dL Estim Creat Clear Calc 127.17 (50-250) ml/min Est GFR (MDRD) Non-Af 126 (>60) BUN/Creatinine Ratio 13.8 (10-20) RATIO Glucose 112 H (70-99) mg/dL Calcium 8.9 (7.6-11.0) mg/dL Total Bilirubin 0.26 (0.00-1.30) mg/dL AST 20 (<=31) U/L ALT 25 (<=34) U/L Alkaline Phosphatase 131 H (35-104) U/L Total Protein 6.1 (5.9-8.4) g/dL Albumin 3.2 L (3.5-5.0) g/dL Globulin 2.9 (2.2-4.2) g/dL Albumin/Globulin Ratio 1.1 (0.9-2.4) RATIO Lipase 20 (13-75) U/L Urine Color Yellow (Yellow) Urine Clarity Cloudy (Clear) Urine pH 7.0 (5.0 - 8.0) Ur Specific [place] 1.015 (1.002-1.030) Urine Protein 15 H (Negative) mg/dl Urine Glucose (UA) Normal (Normal) mg/dl Urine Ketones Negative (Negative) mg/dl Urine Occult Blood Negative (Negative) /ul Urine Nitrite Negative (Negative) Urine Bilirubin Negative (Negative) mg/dL Urine Urobilinogen 1 H (Normal) mg/dl Ur Leukocyte Esterase 25 H (Negative) /ul Urine RBC 0 SEEN (0-5) /hpf Urine WBC 0 SEEN (0-5) /hpf Ur Squamous Epith Cells 0 SEEN (5-10) /hpf Amorphous Sediment 3+ Urine Bacteria 2+ (None Seen) /hpf Urine Mucus 0 SEEN (<or=2+) /hpf Charges/Coding Procedures Urinary/Genital [id number]: [id number] non-stress test Interp
== END 2025-07-02 22:45 | disposition home or self-care (01) ==
LOC: WPOUT 20:56 → WP 20:57
PROVIDERS: Visit Provider Obstetrics & Gynecology
DX: O23.43 Unspecified infection of urinary tract in pregnancy, third trimester (principal); Z3A.31 31 weeks gestation of pregnancy
CPT/HCPCS: 96374; 96361; 36415; 59025; 59050; 80053; 81001; 83690; 85025; 87077; 87086; 87088; 87186; 99221; G0378

== ENCOUNTER → 2025-07-09 | Outpatient (CLI) | payer OTHER, SELFPAY ==
[2025-07-09 17:41] LABS: Ferritin 12 ng/mL (22-378); Iron 28 ug/dL (50-170); Iron Binding Capacity,Unsat 591 ug/dL (228-428)
[2025-07-09 17:46] LABS: Iron Binding Capacity,Total 619 ug/dL (250-450)
== END | disposition home or self-care (01) ==
PROVIDERS: Visit Provider Nurse Practitioner Women's Health
DX: D64.9 Anemia, unspecified (principal)
CPT/HCPCS: 36415; 82728; 83540; 83550

== ENCOUNTER → 2025-07-17 | Outpatient (CLI) | payer OTHER, SELFPAY | END | disposition home or self-care (01) | LOC: LABSPEC 12:26 | PROVIDERS: Referring Provider Nurse Practitioner Women's Health; Visit Provider Nurse Practitioner Women's Health | DX: O26.899 Other specified pregnancy related conditions, unspecified trimester (principal); R10.20 Pelvic and perineal pain unspecified side; Z3A.00 Weeks of gestation of pregnancy not specified | CPT/HCPCS: 87086 ==

== ENCOUNTER → 2025-07-23 | Outpatient (CLI) | payer OTHER, SELFPAY | END | disposition home or self-care (01) | LOC: LABSPEC 16:21 | PROVIDERS: Visit Provider Nurse Practitioner Women's Health | DX: O23.40 Unspecified infection of urinary tract in pregnancy, unspecified trimester (principal); Z3A.00 Weeks of gestation of pregnancy not specified | CPT/HCPCS: 87086 ==

== ENCOUNTER 2025-07-24 10:00 | Outpatient (RCR) | payer OTHER, SELFPAY ==
--- NOTE | 2025-02-20 17:20 | HP.PTEVAL_ITS ---
Patient's Visit Information Visit Information Visit Information: KM IBARRA is a 29 year old F referred to Physical Therapy by Apple Browne CNM with a diagnosis of Unspecified dyspareunia N94.10. Date of Evaluation: 02/20/25 Physical Therapist: Felicity Allan Visit Plan Frequency: 1-2x /Week Duration: 6 Months Plan: Km would benefit from skilled PT intervention to address her bladder frequency, pelvic floor tightness/dyspareunia and pelvic/abdominal discomfort. We will perform a pelvic floor exam once approved by her CLINICAL APPEALS SPECIALIST. She does have some lumbar dysfunction with malalignments and muscle tightness as well which is also likely contributing. We may consider doing a bladder diary and education on bladder irritants to also help manage her urinary frequency. My plan is to continue helping her thru her and managing her back pain complaints. Continue 1-2 x week depending on scheduling. Will wait for approval from Dr. Rivera on doing internal exam/work? Will work on lumbar spine in meantime as that may be contributing to her frequency and/or pelvic/abdominal bloating and discomfort. How is she doing with happy baby stretch followed by press ups? Show her list of bladder irritants. May consider a bladder diary at a future visit depending on how her symptoms improve. Subjective Subjective: She is her first trimester of . She is 12 weeks . Uncomplicated so far. She has endometriosis. She did fertility drugs to get . She had her endo surgery in 2023. She didn't notice any improvement after the surgery. She was having bloating, and abdominal pain, pain with intercourse. Then she saw a urologist who diagnosed her IC. She was using a suppository vaginally and it didn't help a week before she got . OB said there was tightness in her pelvic floor. She was seeing a pelvic floor therapist in [place]. She wasn't able to go weekly due to the distance she was driving. She stopped going as they stopped doing internal as she got . She also had dilators that she was using. She has only had intercourse once since and it was very painful and she stated she tore a little bit. Before she got , she states tampon insertion was impossible (she used to be able to insert tampons years before). Most of her pain with intercourse was internal. [place] pain lately 7-8/10. She feels like she urinating once an hour. She hasn't been great about drinking, as she gets anxious about finding a bathroom. She had to sit down with an admin at work to discuss the fact that she has to urinate so often. 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 She was getting up 5 x night in beginning of but now 2-3 x night. She goes 2-3 x during the first hour she gets up in the morning. Urologist said her bladder emptying wasn't concerning. She doesn't leak besides with vomiting. No incontinence with cough or sneeze. She would not be able to squat and urinate if she is out camping as her body is not relaxed in a different position besides when she is sitting on the toilet with her stool. She has intermittent low back pain. She feels it in the left lumbar. Sometimes she can't move her left leg after getting up after sitting a while. . Pain doesn't radiate down the leg. She feels bloating and pressure in lower abdomen when she doesn't have a bowel movement. She used to have sharp pains before the endo surgery as she had to hold her side (right side). She has a lot of trouble urinating. Sometimes if she has a big urge to urinate, it just dribbles. She uses a stool to urinate. She has struggled with constipation for years. She is going once every 2-3 days (used to be more daily before the ). Her goals would be to urinate less often and no pain with intercourse. She wants to also prepare for a vaginal delivery. Pain pelvic: Pain Intensity (Out of 10): 7 Pain Intensity Range: 8 low back pain: Pain Intensity (Out of 10): 8 Pain Intensity Range: 9 Objective Objective: Lumbar range of motion: Flexion no change Extension pinch in right lumbar Sidebending no change Rotation no change Right great toe extension 4-/5 Negative slump test and seated SLR test Left upslip, Left rotation L4-L5, right rotation L1-2 Press ups full range and painfree Tender and tight in lumbar, piriformis Mild pulling left side with Fabere Negative supine SLR test Did not complete internal exam today until we get approval from Dr. Rivera due to POPDI-6 17, CRAD-8 10, UMM-6 12 Goals Goal 1:: Km will be able to participate in vaginal penetration including a gynecological exam using a medium sized speculum without pain. Goal Time Frame: 6-8 Weeks Goal 2:: Km will be on a more normal voiding schedule of voiding 5-7 times a day to allow for less disruption during day to day activities. 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 Goal Time Frame: 8-12 Weeks Goal 4:: Km will not experience any difficulty or hesitation with urinating. Goal Time Frame: 4-6 Weeks Rehabilitation Potential Physical Therapy Diagnosis: Frequency of micturition, pelvic pain , low back pain, unspecified Rehabilitation Potential: Good Anticipated Interventions Patient/Client Instruction: Educate patient on: Condition and Plan of Care For the Purpose of:: To decrease pain, To improve muscle performance and motor function, To improve health and function and To improve self management Therapeutic Exercise to Include: Relaxation training, Dynamic Lumbar Stabilization and Sal Exercises For the Purpose of:: To decrease pain, To improve muscle performance and motor function, To improve health and function and To improve self management Manual Therapy Techniques to Include: Trigger point massage, Mobilization and Soft tissue mobilization For the Purpose of:: To decrease pain, To improve muscle performance and motor function, To improve health and function and To improve self management Text: Thank you for the opportunity to evaluate your patient. For Medicare and Medicare HMO plans, please review the plan of care and approve it. It will need to be FAXED BACK to us at [phone] for Medicare purposes. For Medicare only, by signing this I certify the plan of care. Please let me know if there are questions or concerns regarding this plan of care. Physician Signature: Date:
== END 2025-07-24 19:00 | disposition home or self-care (01) ==
LOC: PT 10:00
PROVIDERS: Referring Provider Registered Nurse; Visit Provider Registered Nurse
DX: N94.10 Unspecified dyspareunia (principal)
CPT/HCPCS: 97110; 97112; 97140; 97162; 97530